=== PATIENT | female | born 1955 | race Caucasian/White ===

== ENCOUNTER 2024-06-21 22:10 | Emergency (ER) | payer MEDICARE, OTHER, SELFPAY ==
[2024-06-21 22:15] VITALS: BP 184/84; PULSE 78; RESP 22; TEMP 37.2; O2SAT 96; BMI 39.1
--- NOTE | 2024-06-21 22:58 | ED_ITS ---
HPI - General Adult General Date Seen: 06/21/24 Chief complaint: Shortness of Breath/Dyspnea Stated complaint: trouble breathing, chest pain Time Seen by Provider: 06/21/24 22:57 History of Present Illness HPI narrative: 68-year-old male with a history of COPD, on home oxygen, also history of hypertension, peripheral edema (on Lasix 3 times per week) Patient reports she was in the [facility] ER last week for this chest pain and shortness of breath. She had a workup that was apparently reassuring. She was told that there was ?nothing wrong with her heart? and that she should follow up with her doctor. In [facility] link I see she had labs on 06/10/2024. Sodium 144, potassium 3.9, chloride 106, bicarb 30, glucose 85, BUN 16, creatinine 0.85, magnesium 2.1 WBC 6.3, hemoglobin 12.8, platelet count 188 High sensitivity troponin 10 (normal) Procalcitonin 0.4 COVID not detected Chest x-ray one view IMPRESSION: 1. Left basilar opacities may represent an acute infectious/inflammatory process versus atelectatic changes in the appropriate clinical context. 2. Pulmonary nodule projecting over the right mid lung zone, to correlate with prior imaging if available; otherwise, recommend nonemergent CT chest for further assessment. Per ER notes, she had presented for chest heaviness, shortness of breath ongoing for about a week. Heaviness in her chest. Same for the week. Had been on prednisone for about 6 months but then was weaned off by her doctors at [facility] a couple weeks prior to onset. He on exam heart sounds were clear lungs were noted to be clear. EKG shows sinus rhythm, rate 65. Blood pressure was 178/92 at triage. Came down to 148/91. Patient reports that after she was discharged from the ER at [facility] she has had ongoing symptoms of shortness of breath, in particular dyspnea on exertion, and some mild chest discomfort for the past several days. She is not really having any new or different coughing. No production of sputum. No fevers. She her chest pain is not really getting worse, but is staying the same. She is a bit more short of breath. Also over the past 3-4 days she has noted new development of bilateral symmetric lower extremity peripheral edema. She notes that she is normally on Lasix 3 times per week to prevent edema. 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 About 3 weeks ago she was weaned off of her prednisone is now had no prednisone for at least 2 or 3 weeks. Current medication list includes Albuterol (she is out of her own inhaler but has been using her [id number]'s inhaler, and note does cause some temporary improvement) Montelukast, Formoterol revefenacin Rosuvastatin Valsartan 160 mg daily Furosemide 20 mg to 3 times per week Glipizide 2.5 mg daily To PEG low flows in Cetirizine Alendronate Ammonium lactate lotion Related Data Home Medications ?Medication ?Instructions ?Recorded ?Confirmed albuterol sulfate 90 mcg/actuation inhalation 05/07/24 05/07/24 aerosol inhaler alendronate 10 mg tablet 10 mg PO DAILY 05/07/24 06/21/24 ammonium lactate 12 % lotion topical 05/07/24 05/07/24 dapagliflozin propanediol [Farxiga] PO 05/07/24 05/07/24 furosemide 20 mg tablet mg PO 05/07/24 05/07/24 glipizide 2.5 mg tablet, extended 2.5 mg PO DAILY 05/07/24 06/21/24 release 24 hr montelukast 10 mg tablet 10 mg PO DAILY 05/07/24 06/21/24 potassium chloride 10 mEq 10 meq PO DAILY 05/07/24 06/21/24 tablet,extended release revefenacin 175 mcg/3 mL solution 175 mcg inhalation QDAY 05/07/24 06/21/24 for nebulization (Yuluis) rosuvastatin 40 mg tablet 40 mg PO DAILY 05/07/24 06/21/24 valsartan 160 mg tablet mg PO 05/07/24 05/07/24 acetaminophen PO 06/21/24 cetirizine .ROUTE 06/21/24 Previous Rx's ?Medication ?Instructions ?Recorded albuterol sulfate 90 mcg/actuation 2 puff inhalation Q4-6H PRN 06/22/24 aerosol inhaler shortness of breath or wheezing #8.5 grams prednisone 20 mg tablet 40 mg (2 x 20 mg) PO DAILY 5 days 06/22/24 #10 tabs Allergies Allergy/AdvReac Type Severity Reaction Status Date / Time oxycodone Allergy Verified 06/21/24 22:22 doxycycline AdvReac Mild Diarrhea Verified 06/21/24 22:22 PFS PFS Social History Smoking Status: Former smoker Do you use any of these nicotine containing products: None Second hand tobacco smoke exposure: No How often do you have a drink containing alcohol: 2-3 times a week AUDIT-C Alcohol total score: 3 Non-prescribed substance use: marijuana (any form) Exam Narrative: Exam Narrative: Constitutional: Appears well-developed and well-nourished. Alert. Conversant. Breathing easily with her nasal cannula. Non toxic. HENT: Head: Atraumatic. Nose: Nose normal. Mouth/Throat: Oral mucosa is clear and moist. no trismus. Pharynx normal. Tonsils symmetric. No tonsillar enlargement, erythema, or exudate. Eyes: Conjunctivae normal. EOM normal. Pupils equal, round, and reactive to light. No scleral icterus. Neck: Normal range of motion. Neck supple. No tracheal deviation present. No JVD Cardiovascular: Normal rate, regular rhythm. No gallop. No friction rub. No murmur heard. Symmetric radial and PT artery pulses Pulmonary/Chest: Effort normal. No stridor. No respiratory distress. Initially, with only shallow inspiration, no wheezes. When I coached the patient to breathe more forcefully she has definitive wheezing in all lung marie.. No rales. No rhonchi . No tenderness. Abdominal: Soft.. No distension. No mass. No tenderness. No rebound. No guarding. Musculoskeletal: RUE: Normal range of motion. No tenderness. No deformity LUE: Normal range of motion. No tenderness. No deformity RLE: Normal range of motion. 2+ edema. No tenderness. No deformity LLE: Normal range of motion. 2+ edema. No tenderness. No deformity Neurological: Alert and oriented to person, place, and time. Normal strength. CN II-VII intact. No sensory deficit. GCS eye subscore is 4. GCS verbal subscore is 5. GCS motor subscore is 6. Normal coordination Skin: Skin is warm and dry. No rash noted. No pallor. Normal capillary refill. Psychiatric: Normal mood. Normal affect. Const: Vital Signs, click to edit/add: Vital Signs - 24 hr 06/21/24 22:15 Temperature 98.9 F Pulse Rate [Pulse Oximeter] 78 Respiratory Rate 22 Blood Pressure [Ri t Upper Arm] 184/84 H Pulse Oximetry 96 Oxygen Delivery Me thod Room Air Course Course ED Course: [id number]. Did not note much improvement after 1st DuoNeb. On repeat auscultation she is actually more wheezy now that initially and has been more coughing. EKG obtained. Shows sinus rhythm. No ischemia. Reevaluation(s) Reevaluation #1: Recheck-12:10 a.m.. Finishing 2nd DuoNeb. Lung sounds much more open now but still some wheezing. Patient does have a cough now that was not present earlier, suspect that probably her bronchial tubes or opening up. Notes that her chest pain is getting better. Blood pressure still 190/93. Awaiting labs. EKG nonischemic. Vital Signs Vital signs: Initial Vital Signs Temperature 98.9 F 06/21/24 22:15 Temperature Source Temporal Artery Scan 06/21/24 22:15 Pulse Rate 78 06/21/24 22:15 Respiratory Rate 22 06/21/24 22:15 Blood Pressure 184/84 H 06/21/24 22:15 Blood Pressure Mean 117 H 06/21/24 22:15 Blood Pressure Position Sitting 06/21/24 22:15 Pulse Oximetry 96 06/21/24 22:15 Oxygen Delivery Method Room Air 06/21/24 22:15 Vital Signs Temperature 98.9 F 06/21/24 22:15 Pulse Rate 78 06/21/24 22:15 Respiratory Rate 22 06/21/24 22:15 Blood Pressure 184/84 H 06/21/24 22:15 Pulse Oximetry 96 06/21/24 22:15 Oxygen Delivery Method Room Air 06/21/24 22:15 Temperature 98.9 F 06/21/24 22:15 Pulse Rate 78 06/21/24 22:15 Respiratory Rate 22 06/21/24 22:15 Blood Pressure 184/84 H 06/21/24 22:15 Pulse Oximetry 96 06/21/24 22:15 Oxygen Delivery Method Room Air 06/21/24 22:15 Medications Administered Medications: Generic Name Dose Route Start Last Admin Trade Name Freq PRN Reason Stop Dose Admin Albuterol/Ipratropium 1 neb 06/22/24 00:01 06/22/24 00:01 Iprat-Albut 0.5-2.5 Mg/3 Ml Replaced by [facility] 06/22/24 00:02 1 neb ONCE ONE Administration Discontinued Medications Generic Name Dose Route Start Last Admin Trade Name Nirali PRN Reason Stop Dose Admin Albuterol/Ipratropium [address] [facility] 06/21/24 23:19 06/21/24 23:22 Iprat-Albut 0.5-2.5 Mg/3 Ml Replaced by [facility] 06/21/24 23:20 1 neb ONCE ONE Administration Prednisone 40 mg 06/21/24 23:19 06/21/24 23:22 Prednisone 20 Mg Tablet PO 06/21/24 23:20 40 mg ONCE ONE Administration Medical Decision Making MDM Narrative Medical decision making narrative: Very pleasant 68-year-old female presenting to the ER today for a couple week history of progressively worsening chest pain and shortness of breath. Symptoms have been fairly continuous. No clear exertional component to the chest pain or shortness of breath. She has also developed 3-4 days of bilateral lower extremity peripheral edema 1. She has a known history of COPD and is on chronic oxygen. She had been on chronic steroids for about 6 months, but was weaned off and stopped on her steroids by her doctors at the [facility] about 3-4 weeks ago (a week or so prior to onset of these symptoms). On my initial exam she had fairly quiet lung sounds but was wheezing with deeper inspiration. I ordered oral steroids and DuoNebs here in the ER. On repeat exam she is wheezing more, suggesting that her bronchial tubes are probably opening up. I have ordered a repeat DuoNeb. Suspected COPD could be driving in large part, her symptoms. 2. She does not have any fever or purulent sputum. Chest x-ray negative for pneumonia by my read but awaiting formal radiology interpretation. 3. She had a COVID swab last week at the [facility] ER that was negative so will not repeat COVID swab today. 4. She denies any previous history of coronary artery disease or CHF. She does have chronic Lasix for lymphedema. She knows new bilateral lower extremity swelling for the past 3-4 days. I have ordered the EKG which shows no ischemia. I have ordered troponin and N terminal proBNP to evaluate for possible ACS or a CHF. Labs have been delayed due to difficult IV start and phlebotomy. 5. Chest x-ray shows a right upper lobe pulmonary nodule. Discussed with the patient and her daughter. This is previously known to them and previously evaluated by CT scans at [facility]. 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 Discussed with my partner, Dr. Saunders at 12: 20 a.m.. He will follow-up on the outstanding lab results, re-evaluate the patient after her 2nd nebulizer. He will help determine ultimate disposition. If lab workup reassuring, she may be able to discharge home with a refill prescription for albuterol inhaler, and a short burst of 40 mg of prednisone daily for 5 days. Imaging Data Chest x-ray: Attestation: I have reviewed the pertinent imaging results. Radiologist's impression: IMPRESSION: 1. No evidence of an acute pulmonary process. 2. 2.6 cm right upper lobe pulmonary nodule. Recommend outpatient chest CT for further evaluation, if not previously imaged. ECG Data Attestation: I personally reviewed and interpreted this ECG as follows: Interpretation: Normal sinus rhythm Rate: 76 TX: 172 QRS axis: Normal axis. No pathologic Q-waves. ST segment/T wave: Nonspecific T-wave flattening V1, V2, aVL. No ST segment elevation or depression. QTc: 468 Discharge Plan Discharge Clinical Impression: COPD exacerbation, Incidental pulmonary nodule Prescriptions: New prednisone 20 mg tablet 40 mg PO DAILY 5 Days Qty: 10 0RF albuterol sulfate 90 mcg/actuation HFA aerosol inhaler 2 puff inhalation Q4-6H PRN (Reason: shortness of breath or wheezing) Qty: 8.5 0RF No Action valsartan 160 mg tablet PO glipizide 2.5 mg tablet extended release 24hr 2.5 mg PO DAILY rosuvastatin 40 mg tablet 40 mg PO DAILY montelukast 10 mg tablet 10 mg PO DAILY potassium chloride 10 mEq tablet extended release 10 meq PO DAILY furosemide 20 mg tablet PO ammonium lactate 12 % lotion topical alendronate 10 mg tablet 10 mg PO DAILY albuterol sulfate 90 mcg/actuation HFA aerosol inhaler inhalation Yupelri 175 mcg/3 mL solution for nebulization 175 mcg inhalation QDAY dapagliflozin propanediol [Farxiga] PO cetirizine [Zyrtec] .ROUTE acetaminophen [Tylenol 8 Hour] PO Follow Up/Referrals: Provider,Not a Local [Primary Care Provider] -
--- NOTE | 2024-06-21 23:19 | CRLHL7_ITS ---
For Patients: As a result of the Century Cures Act, medical imaging exams and procedure reports are released immediately into your electronic medical record. You may view this report before your referring provider. If you have questions, please contact your health care provider. INDICATION: Dyspnea, chest pain, peripheral edema. TECHNIQUE: Chest 2 views. COMPARISON: Chest radiograph (report only) 06/10/2024. FINDINGS: Cardiovascular and mediastinum: Mild cardiomegaly. Atherosclerotic thoracic aorta. Lungs and pleural spaces: 2.6 cm right upper lobe pulmonary nodule. No acute consolidation, pleural effusion, or pneumothorax. Left basilar scarring there is atelectasis. Bones and soft tissues: Partially imaged lumbar spine fusion hardware. Otherwise, unremarkable for age IMPRESSION: 1. No evidence of an acute pulmonary process. 2. 2.6 cm right upper lobe pulmonary nodule. Recommend outpatient chest CT for further evaluation, if not previously imaged. Dictated by Kelvin Thornton MD @ 06/22/2024 12:05:53 AM (Electronically Signed)
[2024-06-21] MEDS: predniSONE 20 MG TABLET 40 MG PO (23:22)
[2024-06-21] MEDS: IPRAT-ALBUT 0.5-2.5 MG/3 ML NEB 1 NEB IH (23:22)
[2024-06-22] MEDS: IPRAT-ALBUT 0.5-2.5 MG/3 ML NEB 1 NEB IH (00:01)
[2024-06-22 00:18] LABS: Basophils Absolute Auto 0.03 K/uL (0.00-0.30); Basophils Percent Auto 0.3 % (0.0-3.0); Eosinophils Absolute Auto 0.15 K/uL (0.00-0.50); Eosinophils Percent Auto 1.7 % (0.0-7.0); Hematocrit 41.5 % (33.0-51.0); Hemoglobin* 12.9 gm/dL (12.0-16.0); Immature Granulocytes Abs Auto 0.02 K/uL (0.00-0.30); Immature Granulocytes Pct Auto 0.2 %; Lymphocytes Percent Auto 17.6 % (20-44); Mean Corpuscular HGB Conc 31 gm/dL (32-36); Mean Corpuscular Hemoglobin 29 pg (26-34); Mean Corpuscular Volume 93 fL (80-100); Monocytes Percent Auto 11.5 % (0.0-11.0); Neutrophils Absolute Auto 6.18 K/uL (1.7-7.0); Neutrophils Percent Auto 68.7 % (42.0-72.0); Platelet Count* 189 K/uL (140-440); RDW Coefficient of Variation % 13.2 % (11.5-15.5); Red Blood Count 4.47 m/uL (4.00-5.20); White Blood Count* 8.99 K/uL (4.50-11.00)
[2024-06-22 00:20] LABS: Slide Review Reflex No
[2024-06-22 00:33] LABS: Albumin* 4.7 g/dL (3.3-5.0); Chloride* 101 mmol/L (96-114); Potassium* 4.1 mmol/L (3.6-5.1); Sodium* 138 mmol/L (135-149)
[2024-06-22 00:35] LABS: Creatinine* 0.8 mg/dL (0.5-1.5); Est. Creatinine Clearance* 49.12; Estimated Glomerular Filt Rate 81 ml/min
[2024-06-22 00:36] LABS: Alanine Aminotransferase* 19 U/L (4-35); Alkaline Phosphatase* 61 U/L (40-150); Anion Gap 8 mEq/L (7-15); Aspartate Amino Transferase* 32 U/L (12-35); Bilirubin Total* 0.5 mg/dL (0.1-1.5); Blood Urea Nitrogen* 20 mg/dL (7-30); Carbon Dioxide* 29 mmol/L (20-32); Glucose* 124 mg/dL (60-115); Total Protein* 7.2 g/dL (6.0-8.3)
[2024-06-22 00:37] LABS: Calcium* 9.6 mg/dL (8.4-10.6)
[2024-06-22 00:50] LABS: NT Pro B Type NatriureticPept* 333 pg/mL; Troponin I* < 0.01 ng/mL (0.01-0.04)
== END 2024-06-22 01:14 | disposition home or self-care (01) ==
PROVIDERS: Emergency Provider Emergency Medicine
DX: J44.1 Chronic obstructive pulmonary disease with (acute) exacerbation (principal); R91.1 Solitary pulmonary nodule
CPT/HCPCS: 36415; 71046; 80053; 83880; 84484; 85025; 93005; 99283; 99284; 99285; J7512

== ENCOUNTER 2024-07-13 12:20 | Emergency (ER) | payer MEDICARE, OTHER, SELFPAY ==
[2024-07-13 12:49] VITALS: BP 148/74; PULSE 74; RESP 20; TEMP 37.2; O2SAT 91; BMI 39.9
--- NOTE | 2024-07-13 13:03 | ED_ITS ---
HPI - General Adult General Time Seen by Provider: 13:03 Date Seen: 07/13/24 Chief complaint: Back Injury/Pain Stated complaint: Back pain increasing no known injury Time Seen by Provider: 07/13/24 12:33 Source: patient and RN notes reviewed Mode of arrival: ambulatory Limitations: no limitations History of Present Illness HPI narrative: This 68-year-old female is coming in with right-sided low back pain that started on Friday. She baseline takes Tylenol Arthritis twice a day. She has Voltaren gel that she uses for arthritis particularly in her right knee, did apply some on her right low back last night and this morning. She has had no fevers. She denies any pain going down the leg, no sciatica symptoms. The pain is sometimes sharp and is in her right low back. There is no trauma. She feels there some underlying spasms. There is pain with movement. She did have a lumbar spinal fusion about 18 years ago. She does note that she has arthritis in her back as well. Related Data Home Medications ?Medication ?Instructions ?Recorded ?Confirmed albuterol sulfate 90 mcg/actuation inhalation 05/07/24 05/07/24 aerosol inhaler alendronate 10 mg tablet 10 mg PO DAILY 05/07/24 06/21/24 ammonium lactate 12 % lotion topical 05/07/24 05/07/24 dapagliflozin propanediol [Farxiga] PO 05/07/24 05/07/24 furosemide 20 mg tablet mg PO 05/07/24 05/07/24 glipizide 2.5 mg tablet, extended 2.5 mg PO DAILY 05/07/24 06/21/24 release 24 hr montelukast 10 mg tablet 10 mg PO DAILY 05/07/24 06/21/24 potassium chloride 10 mEq 10 meq PO DAILY 05/07/24 06/21/24 tablet,extended release revefenacin 175 mcg/3 mL solution 175 mcg inhalation QDAY 05/07/24 06/21/24 for nebulization (Li) rosuvastatin 40 mg tablet 40 mg PO DAILY 05/07/24 06/21/24 valsartan 160 mg tablet mg PO 05/07/24 05/07/24 acetaminophen PO 06/21/24 cetirizine .ROUTE 06/21/24 Previous Rx's ?Medication ?Instructions ?Recorded albuterol sulfate 90 mcg/actuation 2 puff inhalation Q4-6H PRN 06/22/24 aerosol inhaler shortness of breath or wheezing #8.5 grams prednisone 20 mg tablet 40 mg (2 x 20 mg) PO DAILY 5 days 06/22/24 #10 tabs prednisone 20 mg tablet 20 mg PO DAILY #7 tabs 07/13/24 tizanidine 2 mg tablet 2 mg PO Q8H PRN muscle spasticity 07/13/24 #12 tabs Allergies Allergy/AdvReac Type Severity Reaction Status Date / Time oxycodone Allergy Verified 06/21/24 22:22 doxycycline AdvReac Mild Diarrhea Verified 06/21/24 22:22 Review of Systems Narrative: As per HPI. PFSH PFS Social History Smoking Status: Former smoker Do you use any of these nicotine containing products: None Second hand tobacco smoke exposure: No How often do you have a drink containing alcohol: 2-4 times a month AUDIT-C Alcohol total score: 2 Non-prescribed substance use: denies use Exam Const: Vital Signs, click to edit/add: Vital Signs - 24 hr 07/13/24 12:49 07/13/24 13:33 Temperature 98.9 F Pulse Rate [Pulse Oximeter] 74 Respiratory Rate 20 Blood Pressure [Ri ght Upper Arm] 148/74 H Pulse Oximetry 91 Oxygen Delivery Me thod Nasal Cannula Nasal Cannula Oxygen Flow Rate 3 3 This 68-year-old female is sitting up on the bed in exam room 1. She does wear chronic oxygen. She is alert come interactive, no apparent distress. Inspection of her back reveals no erythema, no ecchymosis, no rash. She has no midline tenderness over her back. She points to her right low back, does seem to be over the right SI joint and is tender when I palpate but no underlying mass noted. Negative straight leg raising, strength is normal and symmetric throughout both lower extremities. Strength is 5/5. Normal light touch sensation. Patient does have a walker for ambulation at this time. Documenting provider has reviewed patient's vital signs: yes Course Course ED Course: Reviewed with patient that she seems to have tenderness over her SI joint which certainly can have arthritis. She has no red flag features of low back pain, no radiculopathy. We will obtain x-ray imaging of lumbar spine and right sacroiliac joint, advanced imaging not indicated at this time. Reevaluation(s) Time of Reevaluation #1: 13:59 Reevaluation #1: Provided Sancho with her x-ray report, did discuss that there is arthritic changes in her back, bilateral mild arthritic changes in both SI joints. She notes when she was on prednisone recently for COPD flare, all of her joint pains got better. My recommendation at this time is a short course of prednisone, will give her tizanidine for muscle relaxant. She will follow up outpatient with her primary care provider. Reviewed with her that I suspect that this is probably her SI joint but still could be a component of degenerative changes in her right back. Vital Signs Vital signs: Initial Vital Signs Temperature 98.9 F 07/13/24 12:49 Temperature Source Temporal Artery Scan 07/13/24 12:49 Pulse Rate 74 07/13/24 12:49 Respiratory Rate 20 07/13/24 12:49 Blood Pressure 148/74 H 07/13/24 12:49 Blood Pressure Mean 98 07/13/24 12:49 Pulse Oximetry 91 07/13/24 12:49 Oxygen Delivery Method Nasal Cannula 07/13/24 12:49 Oxygen Flow Rate 3 07/13/24 12:49 Vital Signs Temperature 98.9 F 07/13/24 12:49 Pulse Rate 74 07/13/24 12:49 Respiratory Rate 20 07/13/24 12:49 Blood Pressure 148/74 H 07/13/24 12:49 Pulse Oximetry 91 07/13/24 12:49 Oxygen Delivery Method Nasal Cannula 07/13/24 12:49 Oxygen Flow Rate 3 07/13/24 12:49 Temperature 98.9 F 07/13/24 12:49 Pulse Rate 74 07/13/24 12:49 Respiratory Rate 20 07/13/24 12:49 Blood Pressure 148/74 H 07/13/24 12:49 Pulse Oximetry 91 07/13/24 12:49 Oxygen Delivery Method Nasal Cannula 07/13/24 13:33 Oxygen Flow Rate 3 07/13/24 13:33 Medical Decision Making Imaging Data XR lumbar spine: Attestation: I have reviewed the pertinent imaging results. Radiologist's impression: Patient: SANCHO GOMEZ Facility:[facility] Patient ID:?[id number] Site Patient ID:?[id number]. Site :?[id number] Study:?XRay-Spine Lumbar 2 view-07/13/2024 1:43:37 PM Ordering Physician:Joseluis Devlin Final Report: Indication: Pain Technique: Two views of the lumbar spine and two views of the right sacroiliac joint Comparison: None Findings: No acute fracture or malalignment. Normal lumbar lordosis is maintained. No significant listhesis. Postsurgical changes of posterior spinal fusion construct spanning L3-S1 with interbody spacers and associated laminectomies. There is no evidence of hardware related complication. Multilevel degenerative changes seen throughout the spine with varying degrees of intervertebral disc height loss and degenerative endplate changes. Postsurgical changes of left femoral intramedullary luh and screw placement. 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 No significant osteoarthritic degenerative changes of the bilateral femoroacetabular joints. No suspicious osseous lesions. There is some heterotopic ossification seen adjacent to the left hip. The soft tissues are without acute abnormality. Calcific atherosclerosis. Impression: 1. No acute fracture or malalignment. 2. Degenerative changes as detailed above. Dictated by Chirag Riggins MD @ 07/13/2024 1:51:27 PM (Electronic Signature) XR right sacroiliac joint: Attestation: I have reviewed the pertinent imaging results. Radiologist's impression: Patient: SANCHO GOMEZ Facility:?[facility] Patient ID:?[id number] Site Patient ID:?[id number]. Site :?[id number] Study:?XRay-Spine Lumbar 2 view-07/13/2024 1:43:37 PM Ordering Physician:?Eliseo Devlin Final Report: Indication: Pain Technique: Two views of the lumbar spine and two views of the right sacroiliac joint Comparison: None Findings: No acute fracture or malalignment. Normal lumbar lordosis is maintained. No significant listhesis. Postsurgical changes of posterior spinal fusion construct spanning L3-S1 with interbody spacers and associated laminectomies. There is no evidence of hardware related complication. Multilevel degenerative changes seen throughout the spine with varying degrees of intervertebral disc height loss and degenerative endplate changes. Postsurgical changes of left femoral intramedullary luh and screw placement. 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 No significant osteoarthritic degenerative changes of the bilateral femoroacetabular joints. No suspicious osseous lesions. There is some heterotopic ossification seen adjacent to the left hip. The soft tissues are without acute abnormality. Calcific atherosclerosis. Impression: 1. No acute fracture or malalignment. 2. Degenerative changes as detailed above. Dictated by Chirag Riggins MD @ 07/13/2024 1:51:27 PM (Electronic Signature) Discharge Plan Discharge Clinical Impression: Acute right-sided low back pain Qualifiers: Sciatica presence: without sciatica Qualified Code(s): M54.50 - Low back pain, unspecified Patient Disposition: Home, Self-Care Condition: Stable Instructions: Acute Low Back Pain (ED) Additional Instructions: I do wonder if this could be your right sacroiliac joint. We will try prednisone, take with food to protect her stomach. Have written for a muscle relaxant if needed. Stay on your Tylenol arthritis and Voltaren gel. Need to follow-up with your primary care provider within the next week for further ongoing management. If your pain is worsening despite this outlined course, develops fever or have further concerns, do recommend re-evaluation. Activity Level: Activity as Tolerated Prescriptions: New prednisone 20 mg tablet 20 mg PO DAILY Qty: 7 0RF tizanidine 2 mg tablet 2 mg PO Q8H PRN (Reason: muscle spasticity) Qty: 12 0RF No Action valsartan 160 mg tablet PO glipizide 2.5 mg tablet extended release 24hr 2.5 mg PO DAILY rosuvastatin 40 mg tablet 40 mg PO DAILY montelukast 10 mg tablet 10 mg PO DAILY potassium chloride 10 mEq tablet extended release 10 meq PO DAILY furosemide 20 mg tablet PO ammonium lactate 12 % lotion topical alendronate 10 mg tablet 10 mg PO DAILY albuterol sulfate 90 mcg/actuation HFA aerosol inhaler inhalation Yupelri 175 mcg/3 mL solution for nebulization 175 mcg inhalation QDAY dapagliflozin propanediol [Farxiga] PO cetirizine [Zyrtec] .ROUTE acetaminophen [Tylenol 8 Hour] PO prednisone 20 mg tablet 40 mg PO DAILY 5 Days Qty: 10 0RF albuterol sulfate 90 mcg/actuation HFA aerosol inhaler 2 puff inhalation Q4-6H PRN (Reason: shortness of breath or wheezing) Qty: 8.5 0RF Follow Up/Referrals: Provider,Not a Local [Primary Care Provider] - Stand Alone Forms: [employer] Info Instructions
--- NOTE | 2024-07-13 13:13 | CRLHL7_ITS ---
For Patients: As a result of the Cures Act, medical imaging exams and procedure reports are released immediately into your electronic medical record. You may view this report before your referring provider. If you have questions, please contact your health care provider. Indication: Pain Technique: Two views of the lumbar spine and two views of the right sacroiliac joint Comparison: None Findings: No acute fracture or malalignment. Normal lumbar lordosis is maintained. No significant listhesis. Postsurgical changes of posterior spinal fusion construct spanning L3-S1 with interbody spacers and associated laminectomies. There is no evidence of hardware related complication. Multilevel degenerative changes seen throughout the spine with varying degrees of intervertebral disc height loss and degenerative endplate changes. Postsurgical changes of left femoral intramedullary luh and screw placement. 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 No significant osteoarthritic degenerative changes of the bilateral femoroacetabular joints. No suspicious osseous lesions. There is some heterotopic ossification seen adjacent to the left hip. The soft tissues are without acute abnormality. Calcific atherosclerosis. Impression: 1. No acute fracture or malalignment. 2. Degenerative changes as detailed above. Dictated by Chirag Riggins MD @ 07/13/2024 1:51:27 PM (Electronically Signed)
== END 2024-07-13 14:16 | disposition home or self-care (01) ==
PROVIDERS: Emergency Provider Family Medicine
DX: M54.50 Low back pain, unspecified (principal)
CPT/HCPCS: 72100; 72202; 99283; 99284

== ENCOUNTER 2024-08-11 08:06 | Day surgery (SDC) | payer MEDICARE, OTHER, SELFPAY ==
[2024-08-11] VITALS (7 sets, daily range): BP systolic 101–141; BP diastolic 48–79; PULSE 74–86; RESP 16–18; TEMP 35.8–36.9; O2SAT 96–99; BMI 40.3
--- NOTE | 2024-08-11 09:21 | W.ANESCHARGE ---
Anesthesia Charges Start Date/Time Anesthesia Start Date: 08/11/24 Anesthesia Start Time: 09:18 Stop Date/Time Anesthesia Stop Date: 08/11/24 Anesthesia Stop Time: 10:43
[2024-08-11] MEDS: BUPIVACAINE 0.25% 30 ML INJECTION (09:28)
--- NOTE | 2024-08-11 10:40 | CRLHL7_ITS ---
For Patients: As a result of the Cures Act, medical imaging exams and procedure reports are released immediately into your electronic medical record. You may view this report before your referring provider. If you have questions, please contact your health care provider. Indication: LEFT 1ST IP JOINT FUSION Technique: Three fluoroscopic images of the left foot. Fluoroscopic time 19 seconds IMPRESSION: Fluoroscopic guidance for 1st interphalangeal joint fusion. Dictated by Ramesh Win MD @ 08/11/2024 1:07:57 PM (Electronically Signed)
--- NOTE | 2024-08-11 10:44 | W.ANESCHARGE ---
Anesthesia Charges Start Date/Time Anesthesia Start Date: 08/11/24 Anesthesia Start Time: 09:18 Stop Date/Time Anesthesia Stop Date: 08/11/24 Anesthesia Stop Time: 10:43
--- NOTE | 2024-08-11 11:57 | W.PODPROC_ITS ---
Date of Procedure: 08/11/24 Time Seen by Provider: 11:57 Surgeon: Cat Silverman DPM Co-Surgeon: Vu Lvey DPM Pre-op Diagnosis: Hallux malleus, left foot Post-op Diagnosis: Hallux malleus, left foot Type of Procedure: Interphalangeal joint fusion, left hallux Procedure Description: The patient was identified prior to being brought back into the operating room using their name and date of as patient identifiers. The intended surgical care plan was then reviewed in detail with the patient as well as rationale for surgery, most common risks, complications, and expected recovery course. The patient was given opportunity to ask questions, which were to the best of my ability. Patient ultimately voiced no questions or concerns and agreed to proceed forward with the surgery as planned.The patient was brought from the preoperative holding area to the operating room, and placed on the operating room table in the supine positions. At this time a timeout was performed by myself and operating room staff to identify the proper patient, site and operation to be performed. A well padded pneumatic ankle tourniquet was applied to the patient's left lower extremity. The left extremity was then scrubbed, prepped and draped in the normal sterile fashion. Attention was then directed to the dorsal aspect of the?left hallux interphalangeal joint. A lazy S shaped incision was made over the dorsal aspect of the proximal interphalangeal joint. The incision was deepened through subcutaneous tissue, taking care to retract and protect all vital neural and vascular structures. The level of the extensor tendon and capsule was identified at the proximal interphalangeal joint. A dorsal transverse tenotomy and capsulotomy was made and lateral and medial collateral ligaments were transected. An extensor flap was created sharply on the dorsal aspect of the proximal phalanx, as well as on the proximal aspect of the distal phalanx. A sagittal saw was utilized to resect the head of the proximal phalanx at the surgical neck and the proximal aspect of the distal phalanx. Using the appropriate technique according to the emergency room orderly, a single 4.0mm cannulated screw was inserted across the resected joint from distal to proximal. Good rectus alignment of the digits was noted.? The extensor tendon was re- approximated with absorbable suture and the skin incisions were re-approximated non-absorbable suture. Upon release of the pneumatic tourniquet, immediate reperfusion of toes 1 through 5 was noted. A postoperative sir eloy elizondo modified dressing consisting of xeroform, ABDs, Kerlix, 4 x 4's, and an OVIDIO bandage was applied to the patient's left foot.The patient was transferred from the operating room to the post anesthesia care unit with vital signs stable and vascular status intact to the left lower extremity. The patient appeared to tolerate both the procedure and anesthesia well.? ? Anesthesia: MAC and local (20 cc of 0.25% Marcaine plain) Hemostasis: ankle Estimated blood loss (mL): 5 Implants: 4.0mm cannulated shea screw Specimens: none sent Disposition: PACU
== END 2024-08-11 12:15 | disposition home or self-care (01) ==
PROVIDERS: PCP Family Medicine; Visit Provider Podiatrist
PROC: (CPT 28285; principal; 2024-08-11 09:15)
DX: M20.32 Hallux varus (acquired), left foot (principal); E11.9 Type 2 diabetes mellitus without complications; J44.9 Chronic obstructive pulmonary disease, unspecified; I10 Essential (primary) hypertension
CPT/HCPCS: 28755; 01480; 73630; 76000; 82962; A9270; C1713; J0665; J2250; J2704; J3010

== ENCOUNTER 2024-10-30 11:27 | Emergency (ER) | payer MEDICARE, OTHER, SELFPAY ==
[2024-10-30] VITALS (14 sets, daily range): BP systolic 163–171; BP diastolic 78–96; PULSE 79–87; RESP 24; TEMP 36.8; O2SAT 97–100; BMI 40.8
--- OUTSIDE RECORDS SUMMARY | 2024-10-30 11:30 | XMS_ITS | Encounter Summary ---
Author Organization [facility] Address [address] [place] [address] Care Team Providers Care Barn Hand Name Role Phone Kati Colin M.D. Primary Care Provider Encounter Details Date Type Department Care Team (Late st Contact Info) Description 10/29/2024 Patient Self-Triage [facility] Symptom Tower Foreman, Provider Social History Tobacco Use Types Packs/Day Years Used Date Smoking Tobacco: Former Cigarettes 0.8 88.9 0 09/29/1969 - 08/23/2018 Smokeless Tobacco: Never Comments:Quit smoking severa l times for several months Alcohol Use Standard Drinks/Week Comments Yes 4 (1 standard drink = 0.6 oz pur e alcohol) [facility] Utilities Answer Date Recorded In the past 12 months has [employer], gas, oil, or water [employer] threatened to shut off services in your home? No 06/28/2024 PHQ-2 Answer Date Recorded PHQ-2 Score 0 10/09/2024 Exercise Vital Sign Answer Date Recorde d On average, how many days pe r week do you engage in moderate to strenuous exercise (like a brisk walk)? 4 days 05/07/2024 On average, how many minutes do you engage in exercise at this level? 30 min 05/07/2024 Hunger Vital Sign Answer Date Recorded Within the past 12 months, y ou worried that your food would run out before you got the money to buy more. Never true 06/28/20 24 Within the past 12 months, t he food you bought just didn't last and you didn't have money to get more. Never true 06/28/2024 PRAPARE - Transportation Answer Date Re corded In the past 12 months, has l ack of transportation kept you from medical appointments or from getting medications? No 06/01 In the past 12 months, has l ack of transportation kept you from meetings, work, or from getting things needed for daily living? No 06/28/2024 Nutrition Answer Date Recorded On average, how many serving s of fruits and vegetables do you eat per day (serving size is equal to 1 cup or approximately the size of a tennis ball)? 3-5 05/07/2024 Dental Answer Date Recorded Dental: Regular Dentist No 05/07/20 Employment Answer Date Recorded Employment status Retired 05/07/2024 Housing Stability Answer Date Recorded What is your living situation today? 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 [address] [place] [phone] 11/01/2024 10:10 AM BRIM POUNCING MACHINE OPERATOR Appointment Department of Laboratory Medicine in [address] [phone] Kati Colin M.D. [address] [place] [phone] 11/03/2024 3:30 PM BRIM POUNCING MACHINE OPERATOR Comprehensive Visit Department of Ophthalmology in [place], [place] [address] [place] [address] Hpiolito Lynch M.D. [address] [place] [phone] 12/09/2024 9:30 AM CDT Appointment Department of Cardiovascular Diseases in [place], [place] [address] [place] [address] Kati Colin M.D. [address] [place] [phone] Discharge Disposition: Home or Self Care 12/22/2024 10:30 AM CDT Clinical Communication Virtual Review in [place] [address], [place] [address] [place] [address] 12/23/2024 10:00 AM CDT Diagnostic Division of Pulmonary Medicine in [address] [phone] Margarita Martinez APRN, C.N.P., D.N.P. [address] [place] [phone] 12/23/2024 10:30 AM CDT Diagnostic Division of Pulmonary Medicine in [address] [phone] Margarita Martinez APRN, C.N.P., D.N.P. [address] [place] [phone] 12/23/2024 11:30 AM CDT Office Visit Division of Pulmonary Medicine in [address] [phone] Margarita Martinez APRN, C.N.P., D.N.P. [address] [place] [phone] documented as of this encounter Visit Diagnoses Not on filedocumented in this encounter Care Teams Barn Hand Relationship Specialty Start Date End Date Kati Colin M.D. [address] [place] [phone] PCP - General Family Medicine 03/09/24 documented as of this encounter
--- OUTSIDE RECORDS SUMMARY | 2024-10-30 11:30 | XMS_ITS | Encounter Summary ---
Author Organization [facility] Address [address] [place] [address] Care Team Providers Care Take Off Worker Name Role Phone Kati Colin M.D. Primary Care Provider Reason for Visit * Reason Onset Date Comments Med Refill 10/11/2024 Encounter Details Date Type Department Care Team (Late st Contact Info) Description 10/11/2024 Refill Department of Family Medicine, [facility], in [place], [place] [address] [place] [address] Kati Colin M.D. [address] [place] [phone] Med Refill Social History Tobacco Use Types Packs/Day Years Used Date Smoking Tobacco: Former Cigarettes 0.8 88.9 0 09/29/1969 - 08/23/2018 Smokeless Tobacco: Never Comments:Quit smoking severa l times for several months Alcohol Use Standard Drinks/Week Comments Yes 4 (1 standard drink = 0.6 oz pur e alcohol) [facility] Utilities Answer Date Recorded In the past 12 months has [employer] electric, gas, oil, or water company threatened to shut off services in your [...] your living situation today? I have a [facility] place to live 06/28/2024 Comments No Sex and Gender Information Value Date Recorded Sex Assigned at Female 05/07/2024 7:38 AM CDT Legal Sex Female 3:35 PM ACTIVITY THERAPY SPECIALIST Gender Identity Female 05/07/2024 7:38 AM CDT Sexual Orientation Straight 05/07/2024 7: 38 AM CDT documented as of this encounter Plan of Treatment Upcoming Encounters Date Type Department Care Team (Latest Contact Info) Description 11/01/2024 9:50 AM ACTIVITY THERAPY SPECIALIST Appointment Department of Laboratory Medicine in [place], [place] [address] [place] [phone] Kati Colin M.D. [address] [place] [phone] 11/01/2024 10:10 AM ACTIVITY THERAPY SPECIALIST Appointment Department of Laboratory Medicine in [place], [place] [address] [place] [phone] Kati Colin M.D. [address] [place] [phone] 11/03/2024 3:30 PM ACTIVITY THERAPY SPECIALIST Comprehensive Visit Department of Ophthalmology in [place], [place] [address] [place] [phone] Hipolito Lynch M.D. [address] [phone] 12/09/2024 9:30 AM CDT Appointment Department of Cardiovascular Diseases in [place], [place] [address] [phone] Kati Colin M.D. [address] [place] [phone] Discharge Disposition: Home or Self Care 12/22/2024 10:30 AM CDT Clinical Communication Virtual Review in [place], [place] [address] [place] [address] 12/23/2024 10:00 AM CDT Diagnostic Division of Pulmonary Medicine in [place], [place] [address] [place] [phone] Margarita Matrinez APRN, C.N.P., D.N.P. [address] [place] [phone] 12/23/2024 10:30 AM CDT Diagnostic Division of Pulmonary Medicine in [place], [place] [address] [place] [phone] Margarita Martinez APRN, C.N.P., D.N.P. [address] [place] [address] 12/23/2024 11:30 AM CDT Office Visit Division of Pulmonary Medicine in [place], [place] [address] [place] [phone] Margarita Martinez, LOREN, C.N.P., D.N.P. [address] [place] [phone] documented as of this encounter Visit Diagnoses Not on filedocumented in this encounter Care Teams Take Off Worker Relationship Specialty Start Date End Date Kati Colin M.D. [address] [place] [phone] PCP - General Family Medicine 03/09/24 documented as of this encounter
--- OUTSIDE RECORDS SUMMARY | 2024-10-30 11:30 | XMS_ITS | Encounter Summary ---
Author Organization [facility] Address [address] [place] [address] Care Team Providers Care Reserve Officer Name Role Phone Kati Colin M.D. Primary Care Provider [phone] Reason for Visit * Reason Onset Date Comments Results 10/11/2024 Encounter Details Date Type Department Care Team (Late st Contact Info) Description 10/11/2024 Clinical Communication Department of Family Medicine, [facility], in [place], [place] [address] [place] [address] Kati Colin M.D. [address] [place] [phone] Results Social History Tobacco Use Types Packs/Day Years Used Date Smoking Tobacco: Former Cigarettes 0.8 88.9 0 09/29/1969 - 08/23/2018 Smokeless Tobacco: Never Comments:Quit smoking severa l times for several months Alcohol Use Standard Drinks/Week Comments Yes 4 (1 standard drink = 0.6 oz pur e alcohol) [facility] Utilities Answer Date Recorded In the past 12 months has [employer], gas, oil, or water company threatened [...] your living situation today? I have a [facility] place to live 06/28/2024 Comments No Sex and Gender Information Value Date Recorded Sex Assigned at Female 05/07/2024 7:38 AM CDT Legal Sex Female 3:35 PM NURSING CENTER TUTOR Gender Identity Female 05/07/2024 7:38 AM CDT Sexual Orientation Straight 05/07/2024 7: 38 AM CDT documented as of this encounter Miscellaneous Notes * Telephone Encounter - Luz Marina Loving, C.M.A. - 10/12/2024 8:59 AM NURSING CENTER TUTOR SUBJECTIVE CHIEF COMPLAINT / REASON FOR CALL Results Information Discussed Guy and informed patient of results and recommendations per Dr. Dixie M.D. PLAN Disposition/Recommendation: self-care . appropriate at this time, patient encouraged to call back with questions Information/Education: patient/caller able to teach back Caller agreeable to plan of care: yes The following references were used: provider Dr. Dixie M.D. ING CENTER TUTOR * Telephone Encounter - Gracy Barrientos L.P.N. - 10/11/2024 4:55 PM NURSING CENTER TUTOR ----- Message from Kati Colin M.D. sent at 10/11/2024 4:51 PM NURSING CENTER TUTOR ----- Please reassure the patient that chest x-ray showed no infection. No antibiotics as needed. Proceedwith the treatment as we discussed during her visit with prednisone and the inhalers. ING CENTER TUTOR documented in this encounter Plan of Treatment Upcoming Encounters Date Type Department Care Team (Latest Contact Info) Description 11/01/2024 9:50 AM NURSING CENTER TUTOR Appointment Department of Laboratory Medicine in [address] [phone] Kati Colin M.D. [address] [place] [phone] 11/01/2024 10:10 AM NURSING CENTER TUTOR Appointment Department of Laboratory Medicine in [address] [phone] Kati Colin M.D. [address] [place] [phone] 11/03/2024 3:30 PM NURSING CENTER TUTOR Comprehensive Visit Department of Ophthalmology in [place], [place] [address] [place] [phone] Hipolito Lynch M.D. [address] [place] [phone] 12/09/2024 9:30 AM CDT Appointment Department of Cardiovascular Diseases in [place], [place] [address] [place] [phone] Kati Colin M.D. [address] [place] [phone] Discharge Disposition: Home or Self Care 12/22/2024 10:30 AM CDT Clinical Communication Virtual Review in [place], [place] 200 [place] [phone] 12/23/2024 10:00 AM CDT Diagnostic Division of Pulmonary Medicine in [address] [phone] Margarita Martinez APRN, C.N.P., D.N.P. [address] [place] [phone] 12/23/2024 10:30 AM CDT Diagnostic Division of Pulmonary Medicine in [address] [phone] Margarita Martinez APRN, C.N.P., D.N.P. [address] [place] [phone] 12/23/2024 11:30 AM CDT Office Visit Division of Pulmonary Medicine in [address] [phone] Margarita Martinez APRN, C.N.P., D.N.P. [address] [place] [phone] documented as of this encounter Visit Diagnoses Not on filedocumented in this encounter Care Teams Reserve Officer Relationship Specialty Start Date End Date Kati Colin M.D. [address] [place] [phone] PCP - General Family Medicine 03/09/24 documented as of this encounter
--- OUTSIDE RECORDS SUMMARY | 2024-10-30 11:30 | XMS_ITS | Continuity of Care Document ---
Author Organization [facility] Address [address] [place] [address] Phone Care Team Providers Care Weapons Specialist Name Role Phone Unavailable Unavailable Unavailable Allergies, Adverse Reactions, Alerts Substance Reaction Status Criticality OXYCODONE HCL Active No Information acetaminophen Active No Information Medications Medication Instructions Dosage Effective Dates (start - stop) Status Comments cetirizine 10 mg tablet take 1 tablet by oral route every day 10 MG - Active hydrochlorothiazide 25 mg tablet take 1 tablet by oral route every day 25 MG - Active montelukast 10 mg tablet take 1 tablet b y oral route every day in the evening 10 MG - Active Vitamin D3 2,000 unit capsule - Active tuagrjl-trmevphaf-arub 333 mg-133 mg-5 mg tablet - Active Advair Diskus 500 mcg-50 mcg/dose powder for inhalation inhale 1 puff by inhalation route 2 times every day in the morning and evening approximately 12 hours apart 1.00 puff - Active Spiriva with HandiHaler 18 mcg and inhalation capsules inhale 1 capsule by inhalation route every day using 2 inhalations via handihaler - Active lutein 6 mg tablet - Active Xigduo XR 5 mg-1,000 mg tablet,extended release take 1 tablet by oral route every day in the morning with food 1.00 tablet - Active metformin 850 mg tablet take 1 tablet by oral route 2 times every day with morning and evening meals 850 MG - Active montelukast 10 mg tablet take 1 tablet b y oral route every day in the evening 10 MG - Active rosuvastatin 20 mg tablet take 1 tablet by oral route every day 20 MG - Active gabapentin 300 mg capsule take 1 capsule by oral route 3 times every day 300 MG - Active clopidogrel 75 mg tablet take 1 tablet b y oral route every day 75 MG - Active Procedures Procedure Date Fundus Photography Est Pt Detailed Scan Computerized; Retina Est Pt Complete Advance Directives Directive Yes / No Effective Date File Name No Information Encounters Encounter Description Practice Location Reason(s) For Visit Diagnoses Date Provider Providers Copied on Encounter Est Pt Detailed [facility], [address] , [place], [place], [id number], tel:[phone] [facility] Diabetic eye exam (chief complaint) Retinal eval (chief complaint) Type 2 diabetes mellitus w/o complicationVi treous degeneration, bilateralNonex udative age-related macular degeneration, bilateral, early dry stage 0 No Information [facility], [facility] [place], [place], [id number], tel:[phone] [facility] Retinal Eval (chief complaint) floaters (chief complaint) Diabetic Exam (chief complaint) Type 2 diabetes mellitus w/o complicationOt her secondary cataract, right eyeVitreous degeneration, bilateral 8 Sayda Márquez. [address], [place], [id number], [place]. tel:[phone] Referring Provider: Willi Alfredo, [address] [place], [address] . tel:[phone] Family History Family Member Type Diagnosis Age At Onset Mother Problem (finding) Cardiovascular disease Brother Problem (finding) cataract Father Problem (finding) Diabetes mellitus Payers Payer name Insurance type Covered republican ID Authoriza tion(s) No Information Social History Type Description Quantity Date Captured Comments Alcohol Use Details Unknown Caffeine Use Details Unknown Tobacco Use Status Current non-smoker 20 Smoking Status Former smoker Non-Smoking Tobacco Use Details : No Details Available : No Details Available Sex Female Chief Complaint And Reason For Visit From encounter dated '09/30/2019 12:50'. Diabetic eye exam (chief complaint) Retinal eval (chief complaint) Reason For Referral Reason For Referral No Information History Of Present Illness Encounter Date Complaint History Of Prese nt Illness Diabetic eye exam The 64 year ol d female presents for evaluation of Diabetic eye exam in the right eye and left eye. It started about 6 year(s) ago. The symptom is constant. Pt is type 2 diabeticBSL : 110 A1C 5.6Patient went to see outside OD and was given a pair of glasses which only correct her to 20/30. Patient was issued two pair of glasses, distance and near. Retinal eval The 63 year old female presents for evaluation of Retinal Eval in the right eye and left eye. It started about 2 year(s) ago. The symptom is constant. The condition is significant. Pt states she has been seeing floaters. Pt states its hard to drive at night because she can't see.Pt denies flashes, pain, itchy, watery, dryness Retinal Eval The 63 year old female presents for evaluation of Retinal Eval in the right eye and left eye. It started about 1 year(s) ago. The symptom is constant. The condition is significant. pt states she has been seeing shadowy squiggles for the last year, but the month she has been seeing more. Pt states she does not drive at night because she can't really see well. Pt denies flashes/painS/P Phako IOL OU floaters The patient is p resent for evaluation of floaters in the right eye and left eye. It started about 1 year(s) ago. The symptom is constant. The condition is significant. Diabetic Exam The patient is p resent for evaluation of Diabetic Exam in the right eye and left eye. It started about 5 year(s) ago. The symptom is constant. The condition is significant. pt is Type 2 DiabBS in the am runs between 100-140 Last A1C was 8.2 Functional Status Date Functional Assessmen t No Information Instructions Date Instruction Additional Infor vasiliy Return in 12 months for complete eye exam with dilation. Related to Nonexudative age-related macular degeneration, bilateral, early dry stage Return in 12 months for diabetic evaluation with Dr. Berry. Related to Type 2 diabetes mellitus w/o complication Impression/Plan - Po sterior vitreous detachment accounts for the patient's complaints. There is no evidence of retinal pathology. All signs and risks of retinal detachment and tears were discussed in detail. Patient instructed to call the office immediately if any symptoms noted. Related to Vitreous degeneration, bilateral Impression/Plan - Di abetes w/o Complications: No signs of diabetic retinopathy noted. No treatment necessary at this time. Patient was instructed to monitor vision for sudden changes and to call if visual changes noted. Discussed ocular and systemic benefits of blood sugar control. Continue management with PCP. Letter sent to PCP regarding status of ocular health. Related to Type 2 diabetes mellitus w/o complication Follow up - Return i n 12 months for complete eye exam with dilation. Related to Nonexudative age-related macular degeneration, bilateral, early dry stage Impression/Plan - Di scussed diagnosis in detail with patient. Discussed treatment options with patient. Use of vitamins has shown to improve the effects of ARMD. Counseling about the benefits and/or risks of the Age-Related Eye Disease Study (AREDS) formulation for preventing progression of age-related macular degeneration (AMD) was provided to the patient and/or caregiver(s). Use of Amsler grid was explained. Will continue to monitor vision and the patient has been instructed to call with any vision changes.Ordered and reviewed Fundus photos. Related to Nonexudative age-related macular degeneration, bilateral, early dry stage Follow up - Return i n 12 months for diabetic evaluation with Dr. Berry. Related to Type 2 diabetes mellitus w/o complication f/u in 6 wks for de/oct w/Dr Susan james Related to Vitreous degeneration, bilateral schedule Yag laser t x OD next available Related to Other secondary cataract, right eye f/u in 6 mos for de/oct w/Dr Susan james Related to Type 2 diabetes mellitus w/o complication Impression/Plan - Di scussed diagnosis in detail with patient. Recommend Yag Laser treatment for vision improvement. Discussed risks/benefits of laser [place]. All questions answered. Patient elects to proceed with recommendation. Related to Other secondary cataract, right eye Follow up - f/u in 6 mos for de/oct w/Dr Alfredo Related to Type 2 diabetes mellitus w/o complication Impression/Plan - Di scussed diagnosis in detail with patient. Exam shows no Diabetic changes OU. No treatment is recommended at this time. Emphasized blood sugar control and advised to keep future appointments with PCP and/or Carpenters Supervisor for the management of Diabetes. Recommend observation for now. OCT shows no active edema OU with mild ILM change OD. Related to Type 2 diabetes mellitus w/o complication Impression/Plan - Po sterior vitreous detachment accounts for the patient's complaints. There is no evidence of retinal pathology. All signs and risks of retinal detachment and tears were discussed in detail. Patient instructed to call office immediately if any symptoms noted. If floaters persist surgery can be consider in the future. Related to Vitreous degeneration, bilateral Follow up - schedule Yag laser tx OD next available Related to Other secondary cataract, right eye Follow up - f/u in 6 wks for de/oct w/Dr Alfredo Related to Vitreous degeneration, bilateral Assessments Type Assessment Date assessment Type 2 diabetes mellitus w/o com plication impression Type 2 diabetes mellitus w/o com plication: E11.9 assessment Vitreous degeneration, bilateral assessment Nonexudative age-rel ated macular degeneration, bilateral, early dry stage impression Vitreous degeneration, bilateral : H43.813 impression Nonexudative age-rel ated macular degeneration, bilateral, early dry stage: H35.3131 Patient Care Teams Name Effective Dates (start - stop) Status Members No Information
--- OUTSIDE RECORDS SUMMARY | 2024-10-30 11:30 | XMS_ITS | Encounter Summary ---
Author Organization [facility] Address [address] [place] [address] Care Team Providers Care Laborer Brush Clearing Name Role Phone Kati Colin M.D. Primary Care Provider Reason for Visit * Reason Onset Date Comments COPD 10/29/2024 Encounter Details Date Type Department Care Team (Late st Contact Info) Description 10/29/2024 Nurse Triage Department of Family Medicine, [facility], in [place], [place] [address] [place] [phone] Ellie Palencia R.N. [address] [place] [phone] COPD Social History Tobacco Use Types Packs/Day Years Used Date Smoking Tobacco: Former Cigarettes 0.8 88.9 0 09/29/1969 - 08/23/2018 Smokeless Tobacco: Never Comments:Quit smoking severa l times for several months Alcohol Use Standard Drinks/Week Comments Yes 4 (1 standard drink = 0.6 oz pur e alcohol) [facility] Utilities Answer Date Recorded In the past 12 months has e electric, gas, oil, or water company threatened [...] Date Recorded Dental: Regular Dentist No 05/07/20 24 Employment Answer Date Recorded Employment status Retired 05/07/2024 Housing Stability Answer Date Recorded What is your living situation today? I have a [facility] place to live 06/28/2024 Comments No Sex and Gender Information Value Date Recorded Sex Assigned at Female 05/07/2024 7:38 AM CDT Legal Sex Female 3:35 PM DYNAMOMETER MECHANIC Gender Identity Female 05/07/2024 7:38 AM CDT Sexual Orientation Straight 05/07/2024 7: 38 AM CDT documented as of this encounter Miscellaneous Notes * Telephone Encounter - Ellie Palencia R.N. - 10/29/2024 5:02 PM DYNAMOMETER MECHANIC Chief Complaint / Reason for Call Patient is a 69 y.o. female calling regarding COPD. Assessment Concern: COPD 3L oxygen continuous, nebs TID x2 prescriptions, 92-97% Band of pain around chest, upper back, ribs; spasms occur. States it's all muscle pain, also describes spasms occurring. Pain with deeps breaths, feeling increased shortness of breath quicker, harder to recover due to pain. States pain muscles spasm and hurt Calling to request: appointment The recommended disposition is See a health care provider within 4 hours (overriding See a health care provider within 24 hours). Recommend monitoring current symptoms for changes. Call back with new, worsening, or persistent symptoms; or for new concerns or questions. Advised ED is open 21/04 for evaluation if needed for concerns or severe symptoms or lack of clinic access. Patient instructed to call back to schedule an appointment during clinic hours. Reason for Disposition [1] MILD difficulty breathing (e.g., minimal/no SOB at rest, SOB with walking) AND [2] worse than normal Protocols used: COPD Oxygen Monitoring and Lcyxpyq-Ufoos-WJ Care Advice Patient/Caregiver understands and will follow care advice?: Yes, able to teach back COPD Oxygen Monitoring and Lqgjshr-Bxvth-EA Nurse Ellie Rodriguez Oct 29, 2024 05:25 PM Care Advice CALL BACK IF: * Fever higher than 100.4 F (38.0 C) * You become worse MOMETER MECHANIC documented in this encounter Plan of Treatment Upcoming Encounters Date Type Department Care Team (Latest Contact Info) Description 11/01/2024 9:50 AM DYNAMOMETER MECHANIC Appointment Department of Laboratory Medicine in [address] [phone] Kati Colin M.D. [address] [place] [phone] 11/01/2024 10:10 AM DYNAMOMETER MECHANIC Appointment Department of Laboratory Medicine in [address] [phone] Kati Colin M.D. [address] [place] [phone] 11/03/2024 3:30 PM DYNAMOMETER MECHANIC Comprehensive Visit Department of Ophthalmology in [place], [place] [address] [place] [phone] Hipolito Lynch M.D. [address], [place] [phone] 12/09/2024 9:30 AM CDT Appointment Department of Cardiovascular Diseases in [place], [place] [address] [place] [phone] Kati Colin M.D. [address] [place] [phone] Discharge Disposition: Home or Self Care 12/22/2024 10:30 AM CDT Clinical Communication Virtual Review in [place], [place] [address] [place] [phone] 12/23/2024 10:00 AM CDT Diagnostic Division of Pulmonary Medicine in [place], [place] [address] [place] [phone] Margarita Martinez APRN, C.N.P., D.N.P. [address] [place] [phone] 12/23/2024 10:30 AM CDT Diagnostic Division of Pulmonary Medicine in [address] [phone] Margarita Martinez APRN, C.N.P., D.N.P. [address] [place] [phone] 12/23/2024 11:30 AM CDT Office Visit Division of Pulmonary Medicine in [place], [place] [address] [place] [phone] Margarita Martinez APRN, C.N.P., D.N.P. [address] [place] [phone] documented as of this encounter Visit Diagnoses Not on filedocumented in this encounter Care Teams Laborer Brush Clearing Relationship Specialty Start Date End Date Kati Colin M.D. [address] [place] [phone] PCP - General Family Medicine 03/09/24 documented as of this encounter
--- OUTSIDE RECORDS SUMMARY | 2024-10-30 11:30 | XMS_ITS | Encounter Summary ---
Author Organization [facility] Address [address] [place] [address] Care Team Providers Care Payment Rep Name Role Phone Kati Colin M.D. Primary Care Provider [phone] Reason for Referral * Outpatient (Routine) - Authorized Specialty Diagnoses / Procedures Referred By Phani cruz Referred To Contact Ophthalmology Diagnoses Diabetes Mellitus Type 2 (HCC) Kati Colin M.D. [address] [place] [address] Phone: tel: fax: [facility] Region Referral ID Status Reason Start Date Expiration Date Visits Requested Visits Authorized [id number] Authorized Specialty Services Required 10/11/2024 04/12/2026 1 1 Scheduling Instructions Do not schedule prior to due date to ensure insurance coverage Dilated Eye Exam Never done SWEEPING OFFICER * Outpatient (Routine) - Closed Specialty Diagnoses / Procedures Referred By Phani cruz Referred To Contact Diagnoses Chronic Obstructive Pulmonary Disease Without Exacerbation (HCC) Procedures DX Chest AP or PA and Lateral 2 Views Kati Colin M.D. [address] [place] [address] Phone: tel: fax: [facility] Region Referral ID Status Reason Start Date Expiration Date Visits Re quested Visits Authorized [id number] Closed 10/11/2024 10/11/2025 1 1 SWEEPING OFFICER Reason for Visit * Reason Comments Cough Cough, congestion, s ob, and BP f/u * Appointment Request (Routine) - Closed Specialty Diagnoses / Procedures Referred By Phani t Referred To Contact Family Medicine Referral ID Status Reason Start Date Expiration Date Visits Re quested Visits Authorized [id number] Closed 10/06/2024 10/06/2025 1 1 Encounter Details Date Type Department Care Team (Late st Contact Info) Description 10/11/2024 11:00 AM MINESWEEPING OFFICER Office Visit Department of Family Medicine, [facility], in [address] [phone] Kati Colin M.D. [address] [place] [address] Chronic Obstructive Pulmonary Disease Without Exacerbation (HCC) (Primary Dx); Failure Heart (HCC); Chronic Respiratory Failure With Hypoxia (HCC); Morbid Obesity Body Mass Index 40.0-44.9 Adult (HCC); Diabetes Mellitus Type 2 (HCC); Screening Cancer Colon; Cough Unspecified Type Social History Tobacco Use Types Packs/Day Years Used Date Smoking Tobacco: Former Cigarettes 0.8 88.9 0 09/29/1969 - 08/23/2018 Smokeless Tobacco: Never Comments:Quit smoking severa l times for several months Alcohol Use Standard Drinks/Week Comments Yes 4 (1 standard drink = 0.6 oz pur e alcohol) [facility] Utilities Answer Date Recorded In the past 12 months has e [employer], gas, oil, or water company threatened to [...] your living situation today? I have a [facility] place to live 06/28/2024 Comments No Sex and Gender Information Value Date Recorded Sex Assigned at Female 05/07/2024 7:38 AM CDT Legal Sex Female 3:35 PM MINESWEEPING OFFICER Gender Identity Female 05/07/2024 7:38 AM CDT Sexual Orientation Straight 05/07/2024 7: 38 AM CDT documented as of this encounter Last Filed Vital Signs Vital Sign Reading Time Taken Comments Blood Pressure 122/72 10/11/2024 10:45 AM MINESWEEPING OFFICER av erage Pulse 75 10/11/2024 10:45 AM MINESWEEPING OFFICER Temperature 35.3 C (95.5 F) 10/11/2024 10:45 AM MINESWEEPING OFFICER Respiratory Rate 16 10/11/2024 10:45 AM MINESWEEPING OFFICER Oxygen Saturation 95% 10/11/2024 10:45 AM MINESWEEPING OFFICER Inhaled Oxygen Concentration - - Weight 115 kg (253 lb 6.7 oz) 10/11/2024 10:45 A M MINESWEEPING OFFICER Height - - Body Mass Index 41.72 08/02/2024 8:58 AM MINESWEEPING OFFICER documented in this encounter Progress Notes * Kati Colin M.D. - 10/11/2024 11:00 AM CST Progress Note Luz Richardson is a 68 y.o. female with past medical history chronic medical conditions including osteoporosis on alendronate, type 2 diabetes with most recent A1c 6.0, COPD, chronic respiratory failure on baseline oxygen, subarachnoid hemorrhage, hypertension, pulmonary hypertension, status post c arotid endarterectomy, physical deconditioning, osteoarthritis of the lower back and bilateral hips, utilization of a walker for ambulation, status post PFO closure device in place, emphysema, hypertensive heart disease with diastolic dysfunction she is status post PFO closure device Cough This is a new problem. Episode onset: 13 days. The cough is Productive of sputum. Associated symptoms include nasal congestion, postnasal drip, shortness of breath and wheezing. Pertinent negatives include no chest pain, chills, ear congestion, ear pain, fever, headaches, heartburn, hemoptysis, myalgias, rash, rhinorrhea, sore throat, sweats or weight loss. Associated symptoms comments: - Post-viral cough since New Year's: clear to yellow sputum - SOB worsening - Occasional wheezing/rattling - Intermittent sore throat - Post-nasal drip with nasal congestion - Mucinex ineffective - Using rescue inhaler 3-4 times daily - Reports chest tightness - Sleep: normal . Treatments tried: albuterol inhler 3-4 days. Allergies Allergen Reactions Doxycycline Diarrhea Hydrocodone Itching and Rash Oxycodone-Acetaminophen Itching and Rash Current Outpatient Medications: acetaminophen (TylenoL 8 Hr) 650 mg ER tablet, Take 1,300 mg by mouth every 8 (eight) hours., Disp:, Rfl: albuterol 90 mcg/actuation inhaler, Inhale 2 puffs every 6 (six) hours as needed for wheezing., Disp: 18 g, Rfl: 3 alendronate (Fosamax) 10 mg tablet, Take 10 mg by mouth once a week., Disp: , Rfl: ammonium lactate (Lac-Hydrin) 12 % lotion, Apply 1 Application topically 2 (two) times a day., Disp: , Rfl: azithromycin (Zithromax) 500 mg tablet, 500 mg daily on , , , Disp: 36 tablet, Rfl: 3 B complex-vitamin (Super B-50) capsule, Take 1 capsule by mouth daily., Disp: , Rfl: budesonide (Pulmicort) 0.5 mg/2 mL nebulizer solution, Inhale 2 mL (0.5 mg total) by nebulization 3(three) times a day. Rinse mouth with water after use to reduce aftertaste and incidence of candidiasis. Do not swallow., Disp: 540 mL, Rfl: 3 cetirizine (ZyrTEC) 10 mg tablet, Take 10 mg by mouth every morning., Disp: , Rfl: cholecalciferol (Vitamin D3) 125 mcg (5,000 Unit) tablet, Take 10,000 Units by mouth daily., Disp: , Rfl: dapagliflozin propanediol (Farxiga) 5 mg tablet, Take 5 mg by mouth daily., Disp: , Rfl: diclofenac sodium (Voltaren) 1 % gel, Place 2 g on the skin. PRN has not started yet, Disp: , Rfl: DME Oxygen, 3 L by continuous inhalation route daily., Disp: , Rfl: DME Oxygen, DME Order - for details see Order Report, Disp: 1 each, Rfl: 0 formoterol (Perforomist) 20 mcg/2 mL nebulizer solution, Inhale 2 mL (20 mcg total) by nebulization2 (two) times a day., Disp: 360 mL, Rfl: 3 furosemide (Lasix) 20 mg tablet, Take 1 tablet (20 mg total) by mouth daily. M, W, F, Disp: 90 tablet, Rfl: 3 glipiZIDE (GlucotroL XL) 2.5 mg 24 hr tablet, Take 1 tablet (2.5 mg total) by mouth daily with breakfast., Disp: 90 tablet, Rfl: 3 medical cannabis capsule, Take 1 capsule by mouth. PRN - gummies or chocolate bar (Patient taking differently: Take 1 capsule by mouth as needed. PRN - gummies or chocolate bar), Disp: , Rfl: montelukast (Singulair) 10 mg tablet, take 1 tablet by mouth daily, Disp: 90 tablet, Rfl: 3 multivitamin tablet, Take 1 tablet by mouth daily., Disp: , Rfl: potassium chloride 10 mEq ER tablet, Take 1 tablet by mouth daily., Disp: , Rfl: revefenacin (Yupelri) 175 mcg/3 mL solution for nebulization nebulizer solution, Inhale 3 mL (0.175mg total) by nebulization daily., Disp: 270 mL, Rfl: 3 rosuvastatin (Crestor) 40 mg tablet, Take 1 tablet by mouth at bedtime., Disp: , Rfl: valsartan (Diovan) 160 mg tablet, Take 80 mg by mouth daily., Disp: , Rfl: vitamins A,C,Z-ewzb-xyfsrn (PreserVision AREDS) 7,160 Units-113 mg-100 Units per tablet, Take 1 tablet by mouth 2 (two) times a day., Disp: , Rfl: amitriptyline 2 % gabapentin 5 % ketamine 5 % in lipoderm, Apply topically 2 (two) times a day. Apply to feet twice a day. (Patient not taking: Reported on 10/11/2024), Disp: 60 g, Rfl: 1 dextromethorphan-guaiFENesin (Robitussin-DM) 10-100 mg/5 mL syrup, Take 5 mL by mouth every 4 (four) hours as needed for cough., Disp: 235 mL, Rfl: 3 ferrous sulfate 324 mg (65 mg iron) DR tablet, Take 65 mg of iron by mouth daily. (Patient not taking: Reported on 10/11/2024), Disp: , Rfl: predniSONE (Deltasone) 20 mg tablet, Take 1 tablet (20 mg total) by mouth daily for 5 days., Disp: 5 tablet, Rfl: 0 Past Medical History: Diagnosis Date Cataract 2006 Chronic Obstructive Pulmonary Disease (HCC) Complication Anesthesia Initial 2020 Degeneration Macular 2017 Diabetes Mellitus NOS Gastroesophageal Reflux Disease NOS Hyperlipidemia Hypertension NOS Malignant Neoplasm Of Rectum Adenocarcinoma (HCC) 2008&2014 Malignant Neoplasm Of Unspecified Part Of Lung Laterality Unknown (HCC) 2022 Migraine Headache Osteopenia Osteoporosis Other Injury Of Unspecified Body Region 2020 Most recent of many Other Specified Health Status 2020 Brain bleed Pneumonia Polyp Colon Skin Cancer (Primary) NOS 2020 Sleep Apnea Social History Tobacco Use Smoking status: Former Current packs/day: 0.00 Average packs/day: 0.8 packs/day for 88.9 years (66.7 ttl pk-yrs) Types: Cigarettes Start date: 09/29/1969 Quit date: 08/23/2018 Years since quittin.1 Smokeless tobacco: Never Tobacco comments: Quit smoking several times for several months Vaping Use Vaping status: never used Substance Use Topics Alcohol use: Yes Alcohol/week: 4.0 standard drinks of alcohol Types: 4 Shots of liquor per week Drug use: Yes Frequency: 4.0 times per week Types: Marijuana Comment: Medicinal Constitutional: - Negative for chills, fever and weight loss. Skin: - Negative for skin rash. ENT: Positive for postnasal drip. - Negative for ear pain, rhinorrhea and sore throat. Respiratory: Positive for coughing, shortness of breath and wheezing. - Negative for hemoptysis. Cardiovascular: - Negative for chest pain, pressure or tightness. Gastrointestinal: - Negative for heartburn. Musculoskeletal: - Negative for muscle pain/stiffness. Neurological: - Negative for headaches. Vitals: 10/11/24 1045 BP: 122/72 BP Location: Right arm Patient Position: Sitting Cuff Size: Large Pulse: 75 Resp: 16 Temp: (!) 35.3 ??C TempSrc: Temporal SpO2: 95% Weight: 115 kg Constitutional Appearance: She is well-developed. HENT Head: Normocephalic and atraumatic. Right Ear: External ear normal. Left Ear: External ear normal. Nose: Nose normal. Eyes Conjunctiva/sclera: Conjunctivae normal. Pupils: Pupils are equal, round, and reactive to light. Cardiovascular Rate and Rhythm: Normal rate and regular rhythm. Heart sounds: Normal heart sounds. Pulmonary Effort: Pulmonary effort is normal. No respiratory distress. Breath sounds: Normal breath sounds. Abdominal General: Bowel sounds are normal. There is no distension. Palpations: Abdomen is soft. There is no mass. Tenderness: There is no abdominal tenderness. There is no guarding. Musculoskeletal General: Normal range of motion. Cervical back: Normal range of motion and neck supple. Skin General: Skin is warm and dry. Neurological Mental Status: She is alert and oriented to person, place, and time. Deep Tendon Reflexes: Reflexes are normal and symmetric. Psychiatric Behavior: Behavior normal. Luz was seen today for cough. Diagnoses and all orders for this visit: Chronic Obstructive Pulmonary Disease Without Exacerbation (HCC) - DX Chest AP or PA and Lateral 2 Views; Future Failure Heart (HCC) Chronic Respiratory Failure With Hypoxia (HCC) Morbid Obesity Body Mass Index 40.0-44.9 Adult (HCC) Diabetes Mellitus Type 2 (HCC) - Ophthalmology - General consult (clinic); Future Screening Cancer Colon - Cologuard - Sent Out Lab; Future Cough Unspecified Type Other orders - predniSONE (Deltasone) 20 mg tablet; Take 1 tablet (20 mg total) by mouth daily for 5 days. - dextromethorphan-guaiFENesin (Robitussin-DM) 10-100 mg/5 mL syrup; Take 5 mL by mouth every 4 (four) hours as needed for cough. Post-viral cough with SOB - CXR ordered - Prednisone 20mg daily for 5 days - Consider antibiotics pending CXR results - Continue current nebuliser regimen: one medication twice daily, one once daily, one thrice daily - Teslon tablets for congestion as needed - Continue Yupelri daily, Formoterol twice a day, and Budesonide three times a day Continue azithromycin 500 mg three times a week for exacerbation prevention Weight Management - Counselled on diet modification: reduce carbohydrate intake - Encouraged to resume exercise when able - Continue Lasix as prescribed Preventive Care - Eye exam referral placed - Cologuard ordered instead of colonoscopy SWEEPING OFFICER documented in this encounter Plan of Treatment Upcoming Encounters Date Type Department Care Team (Latest Contact Info) Description 11/01/2024 9:50 AM MINESWEEPING OFFICER Appointment Department of Laboratory Medicine in [address] [phone] Kati Colin M.D. [address] [place] [phone] 11/01/2024 10:10 AM MINESWEEPING OFFICER Appointment Department of Laboratory Medicine in [address] [phone] Kati Colin M.D. [address] [place] [phone] 11/03/2024 3:30 PM MINESWEEPING OFFICER Comprehensive Visit Department of Ophthalmology in [place], [place] [address] [place] [phone] Hipolito Lynch M.D. [address] [phone] 12/09/2024 9:30 AM CDT Appointment Department of Cardiovascular Diseases in [place], [place] [address] [place] [phone] Kati Colin M.D. [address] [place] [phone] Discharge Disposition: Home or Self Care 12/22/2024 10:30 AM CDT Clinical Communication Virtual Review in [place], [place] [address] [place] [address] 12/23/2024 10:00 AM CDT Diagnostic Division of Pulmonary Medicine in [place], [place] [address] [place] [phone] Margarita Martinez APRN, C.N.P., D.N.P. [address] [place] [phone] 12/23/2024 10:30 AM CDT Diagnostic Division of Pulmonary Medicine in [address] [phone] Margarita Martinez APRN, C.N.P., D.N.P. [address] [place] [phone] 12/23/2024 11:30 AM CDT Office Visit Division of Pulmonary Medicine in [address] [phone] Margarita Martinez APRN, C.N.P., D.N.P. [address] [place] [phone] Scheduled Orders Name Type Priority Associated Diagnoses Orde r Schedule Cologuard - Sent Out Lab Lab Routine Screening Cancer Colon Expected: 10/12/2024, Expires: 01/09/2026 Scheduled Referrals Name Type Priority Associated Diagnoses Order Schedule Ophthalmology - General consult (clinic) Outpatient Referral Routine Diabetes Mellitus Type 2 (HCC) Expected: 10/11/2024 (Approximate), Expires: 01/09/2026 documented as of this encounter Results * DX Chest AP or PA and Lateral 2 Views (10/11/2024 11:53 AM MINESWEEPING OFFICER) Anatomical Region Laterality Modality Chest, Thoracic RST LOS, Tho racic ARZ LOS, Thoracic FLA LOS N/A Digital Radiography Impressions 10/11/2024 12:07 PM MINESWEEPING OFFICER No focal consolidation or pleural effusion size. PFO closure device. Atherosclerotic vascular disease. Indeterminate nodular opacity of the right upper lung, not significantly changed in size from prior CT when accounting for differences in modality. Postoperative changes wedge resection of the right upper lung. Narrative 10/11/2024 12:07 PM MINESWEEPING OFFICER EXAM: DX CHEST AP OR PA AND LATERAL 2 VIEWS Procedure Note Perico Murrell M.D. - 10/11/2024 EXAM: DX CHEST AP OR PA AND LATERAL 2 VIEWS IMPRESSION: No focal consolidation or pleural effusion size. PFO closure device.Atherosclerotic vascular disease. Indeterminate nodular opacity of theright upper lung, not significantly changed in size from prior CT whenaccounting for differences in modality. Postoperative changes wedge resection of the right upper lung. Kati Colin M.D. [facility] Final Result documented in this encounter Visit Diagnoses Diagnosis Chronic Obstructive Pulmonary Disease Without Exacerbation (HCC)- Primary Failure Heart (HCC) Chronic Respiratory Failure With Hypoxia (HCC) Morbid Obesity Body Mass Index 40.0-44.9 Adult (HCC) Diabetes Mellitus Type 2 (HCC) Screening Cancer Colon Cough Unspecified Type Chronic Obstructive Pulmonary Disease Without Exacerbation (HCC) documented in this encounter Care Teams Payment Rep Relationship Specialty Start Date End Date Kati Colin M.D. [address] [place] [phone] PCP - General Family Medicine 03/09/24 documented as of this encounter
--- OUTSIDE RECORDS SUMMARY | 2024-10-30 11:30 | XMS_ITS | Data Portability ---
Author Organization [place] - [facility], [employer] Address [address] [place] [address] Assessment Encounter Date Assessment Date Assessment LastModified by Organization Details LastModified Time 08/25/2024 08/25/2024 Discussed postoperative course with the patient today. Removed postoperative dressing and closely inspected the surgical site today. No SOI present 1/2 sutures removed today. Strapped the L foot and ankle in a pnkezz-[id number] fashion to mitigate postoperative edema and provide stability to the surgical site using a multilayer compressive dressing. Patient is to continue weightbearing in the PO shoe. They will return to clinic in 1 week for reevaluation for remaining suture removal. Patient verbalized understanding and is in agreement with the above treatment plan. simona Not available 08/27/2024 13:57:27 09/01/2024 09/01/2024 Discussed postoperative course with the patient today. Removed postoperative dressing and closely inspected the surgical site today. No SOI present Today I removed the majority of the stitches from the patient's toe, leaving two in place to be removed at the next visit. I applied butterfly bandages (Steri-Strips) to reinforce the skin and provided the patient with extra strips to use as needed. I advised the patient to avoid soaking the foot and to keep the area dry, allowing it to scab over naturally. The patient was instructed to avoid using lotion or moisturizer on the surgical site. I recommended that pt can either return to a stiff sole gym shoe or needs to continue using her PO shoe at all times. I scheduled a follow-up appointment in one week to remove the remaining stitches and to take x-rays to ensure proper healing. I emphasized the importance of wearing clean socks to prevent infection and allowed the use of a band-aid for additional protection if desired. simona Not available 09/02/2024 12:04:49 09/08/2024 09/08/2024 For the status post IPJ fusion, left hallux, I advised the patient to continue wearing the post-operative shoe for another two weeks. I scheduled a follow-up appointment in two weeks to obtain weightbearing radiographs to assess bone healing. I informed the patient that complete bone healing typically takes 6 to 8 weeks. I advised against applying lotion or soaking the foot until further notice. simona Not available 09/09/2024 13:20:30 09/23/2024 09/23/2024 I told the patient to apply triple antibiotic ointment, Vaseline, or Bacitracin to the surgical site to keep it well hydrated along the incision. I advised the patient to continue wearing supportive shoes to protect the area. I scheduled a follow-up appointment in two to three weeks for additional x-rays to monitor the fusion progress simona Not available 09/23/2024 10:36:36 10/13/2024 10/13/2024 I told the patient that the fusion site is stable and healing well, with some areas still requiring further union but should these fail to have a full union, as long as she remains asymptomatic, we will monitor. I advised the patient to avoid activities that involve excessive bending of the toes but otherwise allowed normal activities and footwear. I scheduled a follow-up visit in one month, at which time we will obtain additional x-rays to monitor the healing process. Will also plan for nail debridement at that time simona Not available 10/13/2024 10:58:08 Plan of Treatment Reminders Order Date Submit Date Provider Last Modified By Organization Details Last Modified Time Details Appointments POST OP 15 025 02:00PM RUTHANN LEÓN DPM Not available Not available Not available Lab None recorde d. Referral None recorde d. Procedures strappi ng; ankle and/or foot (PROC) [id number] Not available 08/27/2024 13:57:44 Surgeries None recorde d. Imaging XR, foot, 3 or more view [facility], [address] [place] [address] [place], [address], 09/10/2024 17:19:22 XR, foot, 3 or more view 024 024 [facility], [address] [place] [address] [place], [address], 10/07/2024 04:08:39 XR, foot, 3 or more view 025 025 [facility], [address] [place] [address], [address], 10/14/2024 17:42:08 Medication Orders None recorde d. Patient TargetsNo targets recorded. Patient InstructionsNo instructions recorded. Reason for Referral None Reported. Results Created Date Observation Date Name Description Value Unit Range Abnormal Flag Note LastModifiedBy Organization Detail LastModifiedTime 09/09/20 24 XR, foot, 3 or more view No observ ation record ed. [address] [place], [address], 09/09/2024 13:19:37 10/13/19 25 XR, foot, 3 or more view No observ ation record ed. [address] [place], [address], 10/13/2024 10:55:28 Result Notes None recorded. Problems Name Problem SNOMED Code Status Onset Date Resolution Date Notes Provider Name and Address Organization Details Recorded Time Diabetic care Active [address] Correa 07/05/24 CALEB Salazar - [facility] 10:14:17 Problem Notes None recorded. Procedures Surgical History None recorded. Imaging Results Imaging Date Name Status LastModified by Organiz ation Details LastModified Time 09/09/2024 XR, foot, 3 or more view active [address] [place], [address], 09/09/2024 13:19:37 10/13/2024 XR, foot, 3 or more view active simona [facility] [address], [place], [address], 10/13/2024 10:55:28 Procedure Notes None recorded. Medical Equipment None Reported. Medications Name Sig Start Date Stop Date Status Note LastModified by Organization Details LastModified Time alendronate 10 mg tablet active Not Available Not Available Not Available prednisone 10 mg tablet 05/26 completed Not Available Not Available Not Available doxycycline hyclate 100 mg capsule 05/26 completed Not Available Not Available Not Available tizanidine 2 mg tablet TAKE 1 TABLET BY MOUTH EVERY 8 HOURS NEEDED FOR MUSCLE SPASMS active Not Available Not Available No t Available ammonium lactate 12 % lotion APPLY 1 APPLICATI ON EVERY DAY BY TOPICAL ROUTE active Not Available Not Available No t Available azithromyci n 250 mg tablet 05/26 completed Not Available Not Available Not Available benzonatate 200 mg capsule 05/26 completed Not Available Not Available Not Available ondansetron HCl 4 mg tablet active Not Available Not Available Not Available prednisone 20 mg tablet TAKE 1 TABLET BY MOUTH DAILY active Not Available Not Available No t Available prednisone 5 mg tablet 05/26 completed Not Available Not Available Not Available potassium chloride ER 10 mEq tablet,exte nded release active Not Available Not Available Not Available acetaminoph en 300 mg-codeine 30 mg tablet TAKE 1 TABLET BY MOUTH EVERY 4 TO 6 HOURS NEEDED FOR PAIN active Not Available Not Available No t Available benzonatate 100 mg capsule 05/26 completed Not Available Not Available Not Available glipizide ER 2.5 mg tablet, extended release 24 hr active Not Available Not Available Not Available prednisone 2.5 mg tablet 05/26 completed Not Available Not Available Not Available metformin 1,000 mg tablet 05/26 completed Not Available Not Available Not Available montelukast 10 mg tablet active Not Available Not Available Not Available furosemide 20 mg tablet active Not Available Not Available Not Available cefuroxime axetil 500 mg tablet active Not Available Not Available No t Available albuterol sulfate HFA 90 mcg/actuati on aerosol inhaler INHALE 2 PUFFS BY MOUTH EVERY 4 TO 6 HOURS NEEDED FOR SHORTNESS OF BREATH OR WHEEZING active Not Available Not Available No t Available amoxicillin 875 mg-blanca rosen clavulanate 125 mg tablet TAKE 1 TABLET BY MOUTH EVERY 12 HOURS FOR 7 DAYS active Not Available Not Available No t Available valsartan 160 mg tablet TAKE 1/2 TABLET BY MOUTH EVERY DAY active Not Available Not Available No t Available azithromyci n 500 mg tablet active Not Available Not Available Not Available rosuvastati n 40 mg tablet active Not Available Not Available Not Available Chest Congestion Relief DM 10 mg-100 mg/5 mL oral syrup active Not Available Not Available N ot Available Vitals None Recorded Social History None recorded. Functional Status None recorded. Mental Status None recorded. Family History Nothing Reported. Medical History No medical history recorded. Gynecological HistoryNo gynecological history recorded. Obstetrics History GPAL:G 0 P 0 0 0 0 Past Encounters Encounter ID Performer Location Encounter Start Date Encounter Closed Date Diagnosis/Indication Diagnosis SNOMED-CT Code Diagnosis ICD10 Code Diagnosis Note [id number] RUTHANN LEÓN DPM [facility] [address] [place] [address] 04/23/2024 11:21:09 04/26/2024 09:47:36 Foot callus 787929517 L84 Debrided patient's mycotic nails x10 in thickness and length down to healthy nail bed with nail nipper without incident. Also debrided patient's hyperkerat otic lesions x 2 with a #15 blade down to a comfortabl e level without incident. Recommende d continued use of supportive shoegear and to monitor for injury and infection. Recommende d regular follow-up to prevent complicati ons and to manage pain due to thick, elongated nails and any callus formation. All questions answered. The patient was encouraged to call with any questions or concerns. Patient will follow up in 12 weeks for high risk foot care or sooner if needed. I prescribed a prescripti on-strengt h lotion to be applied to the affected HPKs 1-2x a day. I instructed the patient to use the lotion only on the callused areas to avoid thinning other parts of the skin. The prescripti on was sent to [facility] in [place] . Peripheral neuropathy due to type 2 diabetes mellitus [id number] 107 E11.42 I discussed with the patient the importance of managing blood sugar levels to help control neuropathy symptoms. I recommende d continuing the current medication regimen and advised the patient to monitor for any new symptoms or changes. Today we also casted pt for diabetic shoes to help alleviate pressure and prevent callus leading to wound formation. Ingrowing nail 264994872 L60.0 Onychomycosis 985265517 B35.1 Pain of to e of left foot 1559205259 93462 M79.675 Pain of to e of right foot 3644822561 91482 M79.674 Acquired h ammer toe of left foot 9171344194 468704 M20.42 I explained an office procedure that can be performed to help elongate the flexor tendon to the plantar dig and reduce deformity/ pain. The patient expressed interest in this procedure, and we discussed starting with the more painful left foot. I advised the patient that recovery involves minimal downtime, with a bandage for two days and stitches that can be removed easily. Will plan for procedure at f/u in 1 wk Acquired h ammer toe of right foot [id number] 743059 M20.41 Peripheral vascular disease 748589401 I73.9 I advised the patient to adhere to the Lasix regimen as prescribed to manage swelling. I also recommende d elevating the legs when possible and wearing compressio n stockings to help reduce swelling. [id number] RUTHANN LEÓN DPM [facility] [address] [place] [address] 04/30/2024 10:00:20 05/03/2024 16:28:33 Peripheral neuropathy due to type 2 diabetes mellitus [id number] 107 E11.42 Ingrowing nail 116222690 L60.0 Onychomycosis 235038566 B35.1 Pain of to e of left foot 0318027600 01350 M79.675 Pain of to e of right foot 6925762580 16256 M79.674 Acquired h ammer toe of left foot 6989670128 502907 M20.42 Discussed the treatment options with the patient and they were given the opportunit y to ask questions which were answered to the best of the physician' s ability. They understand no guarantees either written or implied exist as to the ultimate outcome of their care plan rendered. Ultimately they voiced no questions or concerns and agreed to the care plan rendered. Prior to start of procedure, a TIME-OUT was performed to identify the correct procedure and laterality (flexor tenotomy of 2nd dig). The toe was then prepped with alcohol and allowed to dry thoroughly . Local anesthesia (2 cc of lidocaine plain) was then administer ed in a digital block fashion. Once adequate anesthesia was obtained, the toe was prepped with betadine and allowed to dry thoroughly . Attention was directed to the plantar aspect of the second toe where an incision was made at the junction between the plantar forefoot fat padding and the plantar digital skin at the level of the proximal plantar crease using a 18G needle. This incision was carried to bone and with the toe held in extension at the distal and proximal inter-phal angeal joints the flexor digitorum longus tendon was transected allowing a visible release of the toe contractur e. The forefoot was loaded and ideal correction of the deformity was appreciate d. Hemostasis was achieved via manual pressure and the skin edges were re-approxi mated with a steri-stri p. This procedure was repeated in the same manner as dig 3-5 of the left foot A well padded dressing with fold gauze sponges placed at the dorsal and plantar forefoot to allow sustained extension of the toes and flexion of the metatarso- phalangeal joints was then applied. The patient was given written postoperat lori instructio ns which were reviewed in verbal fashion today. They tolerated the procedure well. Acquired h ammer toe of right foot [id number] 469988 M20.41 Peripheral vascular disease 257155627 I73.9 [id number] RUTHANN LEÓN DPM [facility] [address] [place] [address] 4 05/07/2024 10:57:37 05/11/2024 17:15:09 Peripheral neuropathy due to type 2 diabetes mellitus 4639020414 107 E11.42 Ingrowing nail 795487265 L60.0 Onychomycosis 346168685 B35.1 Pain of to e of left foot 2015629198 42798 M79.675 Pain of to e of right foot 3391140724 70399 M79.674 Acquired h ammer toe of right foot 3071898499 878647 M20.41 Peripheral vascular disease 158181290 I73.9 [id number] RUTHANN LEÓN DPM [facility] [address] [place] [address] 4 05/26/2024 12:02:47 05/27/2024 16:59:24 Peripheral neuropathy due to type 2 diabetes mellitus 4625917064 107 E11.42 For the intermitte nt sharp pain in the toes, the patient was advised to monitor the pain and note any patterns or triggers. The new shoes and inserts are expected to help alleviate some of the discomfort . The patient was encouraged to report any worsening of symptoms or if the pain becomes more frequent or severe. Ingrowing nail 170536723 L60.0 Onychomycosis 856303737 B35.1 Pain of to e of left foot 7288223134 39037 M79.675 Pain of to e of right foot 7669582212 16246 M79.674 Acquired h ammer toe of right foot 5854811435 104170 M20.41 I did dispense one pair diabetic shoes and a 3 pair of custom multi-dens ity diabetic insoles. The insoles did conform well to the longitudin al arches. The shoes and insoles are both in good condition with no visible defects. They did fit well in both length and width. The patient did ambulate comfortabl y in the shoes prior to leaving clinic. The patient was instructed on proper break-in and use of the shoes. A break in instructio n form was discussed and dispensed to the patient. The patient was instructed to replace the inserts every four months to prevent sores and blisters. The patient was also informed about the availabili ty of bungee laces for easier shoe management if needed. The patient is to return to clinic for followup evaluation in one to 2-3 months or sooner if any problems. Peripheral vascular disease 056776636 I73.9 [id number] RUTHANN LÓEN DPM [facility] [address] [facility] [address] [place] [address] 06/23/2024 15:47:04 06/24/2024 13:37:52 Peripheral neuropathy due to type 2 diabetes mellitus 3177116498 107 E11.42 Total time spent on the E/M service was 30 minutes, which included reviewing patient history, performing a medically appropriat e examinatio n, counseling the patient, and documentin g clinical informatio n. Ingrowing nail 303259847 L60.0 Onychomycosis 685566006 B35.1 Pain of to e of left foot 7505813561 09974 M79.675 Pain of to e of right foot 2396008254 03370 M79.674 Acquired h ammer toe of right foot 5620578340 707977 M20.41 Peripheral vascular disease 819770062 I73.9 [id number] RUTHANN LEÓN DPM [facility] [address] [facility] [address] [place] [address] 07/28/2024 10:09:18 07/29/2024 09:40:16 Peripheral neuropathy due to type 2 diabetes mellitus 3832728537 107 E11.42 Total time spent on the E/M service was 30 minutes, which included reviewing patient history, performing a medically appropriat e examinatio n, counseling the patient, and documentin g clinical informatio n. Ingrowing nail 361180830 L60.0 Onychomycosis 522578215 B35.1 Pain of to e of left foot 5843126820 77377 M79.675 We reviewed in detail with the patient their specific diagnosis, etiology, and have recommende d the following treatment care plan noted below. Prior to discussion of surgery, we reviewed alternativ e treatments which have been previously exhausted. I have thoroughly counseled the patient regarding their diagnosis as noted above. Also present during this counseling was nursing staff. The patient was informed that the proposed procedure or medical interventi on involves the above and does offer a good likelihood of improving their symptoms and functional ity. The patient was made aware of the most common risks, benefits, and potential complicati ons of these options were also discussed which include but are not limited to: continued pain, delayed healing, infection, numbness, painful scar tissue formation, hematoma/s eroma formation, undercorre ction, overcorrec tion, deep venous thrombosis or phlebitis with potential for pulmonary embolus, potential that future conservati ve and/or surgical interventi on may become necessary, in catastroph ic situations the need for amputation of part or all of the foot including the ankle or lower leg, and anesthesia related complicati ons including . We discussed the fact that difficulti es may be encountere d during recovery to include difficulti es remaining PWB, incisional tenderness that requires use of pain medication or over-the-c ounter analgesics , delayed incision healing requiring ongoing use of wound care treatments /dressings /immobiliz ation techniques , edema of the operative site and lower limb for 3 to 6 months time making comfortabl e shoe gear use difficult, limping due to weakness or instabilit y about the surgical site, and need for formal physical therapy referral to aide in recovering meaningful function of their operative lower limb and foot. In the course of the evaluation we did discuss potential need for further surgery. Also discussed were possible problems or difficulti es the patient may encounter if treatment was not pursued at this time. The patient voiced that they have indicated a clear understand ing of this discussion and agreed to proceed forward with the planned surgical procedures , anesthesia , and follow-up care plan that has been arranged throughout the early post-opera tive period. Pain of to e of right foot 5928192283 54124 M79.674 Acquired h ammer toe of right foot 1371128730 636924 M20.41 Peripheral vascular disease 770743797 I73.9 Nail dystr ophy due to trauma 699002644 L60.3 I advised the patient that the subungual hematoma appears stable and does not require immediate interventi on. I recommende d monitoring the nail for any changes, such as increased looseness or signs of infection. I informed the patient that it would take approximat lisette six months for a new toenail to grow. I instructed the patient to return if the nail becomes problemati c or if there are any concerns. I also ensured the patient received a copy of the visit summary as requested. RUTHANN LEÓN DPM [facility] [address] [place] [address] 08/11/2024 09:24:05 08/13/2024 21:18:50 RUTHANN LEÓN DPM [facility] [address] [place] [address] 4 08/18/2024 10:24:35 08/18/2024 13:45:48 Cellulitis of toe of left foot 6111884762 L03.032 Peripheral neuropathy due to type 2 diabetes mellitus 2169622030 107 E11.42 Ingrowing nail 972367826 L60.0 Onychomycosis 870573867 B35.1 Pain of to e of left foot 6012143753 26103 M79.675 Pain of to e of right foot 9839013449 24668 M79.674 Acquired h ammer toe of right foot 0364444359 225468 M20.41 Peripheral vascular disease 050169023 I73.9 Nail dystr ophy due to trauma 281836018 L60.3 Blister of foot 63213313 3 S90.822A Procedure Details: patient was identified , and informed consent was obtained for the procedure. The left hallux was cleaned with antiseptic solution, and sterile technique was maintained throughout . The blister, located on the dorsal surface of the left hallux, was inspected. A sterile 15 blade was used to puncture the blister at its base, allowing the fluid to drain completely . The contents were gently expressed to minimize trauma to surroundin g tissue. The wound was then cleaned again with antiseptic solution. A sterile dressing was applied to the area, and the patient was instructed on proper care of the site, including keeping the area clean and dry, and monitoring for signs of infection. RUTHANN LEÓN DPM [facility] [address] [place] [address] 08/25/2024 14:37:36 08/30/2024 16:28:34 Peripheral neuropathy due to type 2 diabetes mellitus 4003080021 107 E11.42 Ingrowing nail 864145233 L60.0 Onychomycosis 437118934 B35.1 Pain of to e of left foot 3681127325 34487 M79.675 Pain of to e of right foot 4928101773 22154 M79.674 Acquired h ammer toe of right foot 2617753651 538713 M20.41 Peripheral vascular disease 668106615 I73.9 Nail dystr ophy due to trauma 372643270 L60.3 RUTHANN LEÓN DPM [facility] [address] [place] [address] 4 09/01/2024 15:02:05 09/03/2024 09:50:01 Peripheral neuropathy due to type 2 diabetes mellitus 3158322694 107 E11.42 Ingrowing nail 533622745 L60.0 Onychomycosis 749674914 B35.1 Pain of to e of left foot 9285737807 49412 M79.675 Pain of to e of right foot 9627680002 73905 M79.674 Acquired h ammer toe of right foot 2604746427 493039 M20.41 Peripheral vascular disease 500462929 I73.9 Nail dystr ophy due to trauma 947770905 L60.3 [id number] RUTHANN LEÓN DPM [facility] [address] [address] 09/08/2024 15:24:18 09/09/2024 15:07:21 Peripheral neuropathy due to type 2 diabetes mellitus 0424763450 107 E11.42 Ingrowing nail 536785821 L60.0 Onychomycosis 270382309 B35.1 Pain of to e of left foot 9197926353 60899 M79.675 Pain of to e of right foot 9784988639 90459 M79.674 Acquired h ammer toe of right foot 4015157426 224856 M20.41 Peripheral vascular disease 242063794 I73.9 Nail dystr ophy due to trauma 704850328 L60.3 RUTHANN LEÓN DPM [facility] [address] [place] [address] 09/23/2024 09:57:32 09/26/2024 15:23:22 Peripheral neuropathy due to type 2 diabetes mellitus 3680899789 107 E11.42 Ingrowing nail 819404809 L60.0 Onychomycosis 432745549 B35.1 Pain of to e of left foot 0689801734 73003 M79.675 Pain of to e of right foot 0950219785 03996 M79.674 Acquired h ammer toe of right foot 7273073340 737930 M20.41 Peripheral vascular disease 538237234 I73.9 Nail dystr ophy due to trauma 622985628 L60.3 RUTHANN LEÓN DPM [facility] [address] [address] 10/13/2024 10:37:16 10/13/2024 12:15:39 Peripheral neuropathy due to type 2 diabetes mellitus 9996013617 107 E11.42 Ingrowing nail 496997045 L60.0 Onychomycosis 368659178 B35.1 Pain of to e of left foot 0789642869 75986 M79.675 Pain of to e of right foot 8869795999 34306 M79.674 Acquired h ammer toe of right foot 9028443774 638845 M20.41 Peripheral vascular disease 834224980 I73.9 Nail dystr ophy due to trauma 407785260 L60.3 Health Concerns Section Related Observation LastModified by Organization Detai ls LastModified Time None Recorded Concern Status LastModified by Organization Details LastModified Time None Recorded Advance Directives Directive None Recorded Payers Encounter Date Sequence Insurance Name Policy Number Policy Fisher Covered Member ID Fisher Member ID Guarantor Name 08/25/2024 2 AETNA (MEDICARE SUPPLEMENT) Luz Richardson [id number] Luz Martín 08/25/2024 1 [place] [employer] Luz A Silkey [id number] Luz Silkey 09/01/2024 2 AETNA (MEDICARE SUPPLEMENT) Luz Resendizey [id number] [facility] 09/01/2024 1 [place] [employer] Luz A Silkey [id number] Luz Silkey 09/08/2024 2 AETNA (MEDICARE SUPPLEMENT) Luz Resendizey [id number] [place] [facility] 09/08/2024 1 [place] [employer] Luz A Silkey [id number] Luz Silkey 09/23/2024 2 AETNA (MEDICARE SUPPLEMENT) Luz Resendizey [id number] [facility] 09/23/2024 1 [place] [employer] Luz A Silkey [id number] Luz Silkey 10/13/2024 2 AETNA (MEDICARE SUPPLEMENT) Luz Silkey [id number] [facility] 10/13/2024 1 [place] [employer] Luz A Silkey [id number] Luzjacky Resendiz Notes Date Note Type Note Provider Name and Address Organization Details Recorded Time 08/25/2024 text/html SURGICAL PROCEDU RE: L hallux IPJ fusionDATE OF SURGERY: 08/11/20 SUBJECTIVE: The patient is seen today following the above defined surgical procedure. Pt has been keeping the postoperative dressing clean, dry, and intact. Pt has been elevating the operative lower extremity and utilizing ice therapy to the posterior aspect of the knee as instructed. Pt has remained weightbearing to their operative limb using their PO shoe. The patient attempted to wear regular shoes this morning but experienced severe pain in the big toe. RUTHANN LEÓN DPM [address] [place], [address], [facility] 08/27/2024 13:58:28 09/01/2024 text/html SURGICAL PROCEDU RE: L hallux IPJ fusionDATE OF SURGERY: 08/11/20 SUBJECTIVE: The patient is seen today following the above defined surgical procedure. Pt has been keeping the postoperative dressing clean, dry, and intact. Pt has been elevating the operative lower extremity and utilizing ice therapy to the posterior aspect of the knee as instructed. Pt has remained weightbearing to their operative limb using their PO shoe. RUTHANN LEÓN DPM [address] [place] [address], [phone], [facility] 09/02/2024 12:05:10 09/08/2024 text/html SURGICAL PROCEDU RE: L hallux IPJ fusionDATE OF SURGERY: 08/11/20 SUBJECTIVE:The patient presents today for a follow-up visit, one month status post interphalangeal joint (IPJ) fusion of the left hallux. The patient reports that the toe is feeling pretty good. The patient attempted to apply steri-strips but had difficulty due to limited reach. The patient denies any significant pain and reports that the swelling has decreased. RUTHANN LEÓN DPM [address] [place], [phone], [facility] 09/09/2024 13:20:50 09/23/2024 text/html SURGICAL PROCEDU RE: L hallux IPJ fusionDATE OF SURGERY: 08/11/20 SUBJECTIVE:The patient returned for a follow-up visit six weeks after undergoing an interphalangeal joint (IPJ) fusion of the left hallux. The patient reports that the joint occasionally hurts but feels pretty good overall. The patient has refrained from picking at the surgical area and has been wearing good supportive shoes as advised. The patient inquires about applying lotion to the area. RUTHANN LEÓN DPM [address] [place], [address], [facility] 09/23/2024 10:36:44 10/13/2024 text/html SURGICAL PROCEDU RE: L hallux IPJ fusionDATE OF SURGERY: 08/11/20 SUBJECTIVE:The patient reports that the foot is feeling good overall, with significant improvement in swelling. The patient mentions occasional pain at the tip of the toe but states that it is not present today, only if she bumps it. The patient denies any significant issues with mobility or daily activities. RUTHANN LEÓN DPM [address] [place], [address], [facility] 10/13/2024 10:58:29 OBGyn Episode No OBEpisode recorded.
--- OUTSIDE RECORDS SUMMARY | 2024-10-30 11:30 | XMS_ITS | Encounter Summary ---
Author Organization [facility] Address [address] [place] [address] Care Team Providers Care Windows Desktop Support Name Role Phone Kati Colin M.D. Primary Care Provider Reason for Visit * Reason Onset Date Comments Chest Pain 10/30/2024 Encounter Details Date Type Department Care Team (Late st Contact Info) Description 10/30/2024 Nurse Triage Department of Family Medicine, [facility], in [place], [place] [address] [place] [address] Chichi Noel, R.N. Chest Pain Social History Tobacco Use Types Packs/Day Years Used Date Smoking Tobacco: Former Cigarettes 0.8 88.9 0 09/29/1969 - 08/23/2018 Smokeless Tobacco: Never Comments:Quit smoking severa l times for several months Alcohol Use Standard Drinks/Week Comments Yes 4 (1 standard drink = 0.6 oz pur e alcohol) [facility] Utilities Answer Date Recorded In the past 12 months has th e electric, gas, oil, or water company [...] your living situation today? I have a [facility] place to live 06/28/2024 Comments No Sex and Gender Information Value Date Recorded Sex Assigned at Female 05/07/2024 7:38 AM CDT Legal Sex Female 3:35 PM BOX BLANK MACHINE FEEDER Gender Identity Female 05/07/2024 7:38 AM CDT Sexual Orientation Straight 05/07/2024 7: 38 AM CDT documented as of this encounter Miscellaneous Notes * Telephone Encounter - Chichi Noel RGuilleN. - 10/30/2024 9:23 AM CST Chief Complaint / Reason for Call Patient is a 69 y.o. female calling regarding Chest Pain. Assessment Concern: Muscle pain and spasms in upper back and ribs-feels like a squeezing sensation. Pain makesit hard to catch her breath, exacerbating her COPD. Described SOB now at rest, though able to complete full sentences and voice sounds relaxed during call. Recent plane trip to/from [place] on 10/19/24, symptoms worsened shortly after. Present for: worse the past wk. Noted hx of rib fracture. Home cares tried: Tylenol arthritis, neb-helps. Calling to request: appt this afternoon The recommended disposition is Go to ED Now. Reason for Disposition Long-distance travel in past month (e.g., car, bus, train, plane; with trip lasting 6 or more hours) Protocols used: Chest Gcvp-Rywoc-YY Care Advice Patient/Caregiver understands and will follow care advice?: Yes, able to teach back Chest Sqcm-[facility]-GI Nurse Chichi Ulrich Oct 30, 2024 09:31 AM Care Advice GO TO ED NOW: * You need to be seen in the Emergency Department. * Go to the ED at nearest Hospital. * Leave now. Drive carefully. ANOTHER ADULT SHOULD DRIVE: * It is better and safer if another adult drives instead of you. CALL 911 IF: * Severe difficulty breathing occurs * Passes out or becomes too weak to stand * You become worse BLANK MACHINE FEEDER documented in this encounter Plan of Treatment Upcoming Encounters Date Type Department Care Team (Latest Contact Info) Description 11/01/2024 9:50 AM BOX BLANK MACHINE FEEDER Appointment Department of Laboratory Medicine in [address] [phone] Kati Colin M.D. [address] [place] [address] 11/01/2024 10:10 AM BOX BLANK MACHINE FEEDER Appointment Department of Laboratory Medicine in [address] [phone] Kati Colin M.D. [address] [place] [phone] 11/03/2024 3:30 PM BOX BLANK MACHINE FEEDER Comprehensive Visit Department of Ophthalmology in [place], [place] [address] [place] [address] Hipolito Lynch M.D. [address] [place] [phone] 12/09/2024 9:30 AM CDT Appointment Department of Cardiovascular Diseases in [place], [place] [address] [phone] Kati Colin M.D. [address] [place] [phone] Discharge Disposition: Home or Self Care 12/22/2024 10:30 AM CDT Clinical Communication Virtual Review in [place], [place] [address] [place] [address] 12/23/2024 10:00 AM CDT Diagnostic Division of Pulmonary Medicine in [address] [phone] Margarita Martinez APRN, C.N.P., D.N.P. [address] [place] [phone] 12/23/2024 10:30 AM CDT Diagnostic Division of Pulmonary Medicine in [address] [phone] Margarita Martinez APRN C.N.P., D.N.P. [address] [place] [phone] 12/23/2024 11:30 AM CDT Office Visit Division of Pulmonary Medicine in [address] [phone] Margarita Martinez APRN, C.N.P., D.N.P. [address] [place] [phone] documented as of this encounter Visit Diagnoses Not on filedocumented in this encounter Care Teams Windows Desktop Support Relationship Specialty Start Date End Date Kati Colin M.D. [address] [place] [address] [place] [phone] PCP - General Family Medicine 03/09/24 documented as of this encounter
--- OUTSIDE RECORDS SUMMARY | 2024-10-30 11:30 | XMS_ITS | Encounter Summary ---
Author Organization [facility] Address [address] [place] [address] Care Team Providers Care Construction Services Technician Name Role Phone Kati Colin M.D. Primary Care Provider Reason for Visit * Reason Comments Nurse Visit Home machine B/P thania ck. Encounter Details Date Type Department Care Team (Late st Contact Info) Description 10/11/2024 11:15 AM PRESS OFFBEARER Nurse Only Department of Family Medicine, [facility], in [address] [phone] Gracy Barrientos, L.P.N. [address] [phone] Nurse Visit (Home machine B/P check.) Social History Tobacco Use Types Packs/Day Years Used Date Smoking Tobacco: Former Cigarettes 0.8 88.9 0 09/29/1969 - 08/23/2018 Smokeless Tobacco: Never Comments:Quit smoking severa l times for several months Alcohol Use Standard Drinks/Week Comments Yes 4 (1 standard drink = 0.6 oz pur e alcohol) [facility] Utilities Answer Date Recorded In the [...] your living situation today? I have a [facility] place to live 06/28/2024 Comments No Sex and Gender Information Value Date Recorded Sex Assigned at Female 05/07/2024 7:38 AM CDT Legal Sex Female 3:35 PM PRESS OFFBEARER Gender Identity Female 05/07/2024 7:38 AM CDT Sexual Orientation Straight 05/07/2024 7: 38 AM CDT documented as of this encounter Last Filed Vital Signs Vital Sign Reading Time Taken Comments Blood Pressure 110/70 10/11/2024 12:02 PM PRESS OFFBEARER Pulse 70 10/11/2024 12:02 PM PRESS OFFBEARER Temperature - - Respiratory Rate 20 10/11/2024 12:02 PM PRESS OFFBEARER Oxygen Saturation - - Inhaled Oxygen Concentration - - Weight - - Height - - Body Mass Index - - documented in this encounter Progress Notes * Gracy Barrientos L.P.N. - 10/11/2024 11:15 AM CST Luz is seen today for a blood pressure visit as ordered by No ref. provider found. Visit was conducted in clinic. Today's blood pressure reading and prior two readings: BP Readings from Last 3 Encounters: 10/11/24 122/72 10/05/24 118/71 08/30/24 143/81 . Medication list was reconciled, and patient is taking their blood pressure medication as prescribed. The patient reports no acute symptoms of hypertension Patient brought their [employer] brand/type home blood pressure monitoring device to the visit today for accuracy test. The patient's home device uses a upper arm cuff location. The right arm was used for measurement. The results were there was at least one difference of greater than 10 mmHg, the comparison is unacceptable, the device is considered inaccurate, and the recommendation was given tothe patient to obtain a new blood pressure monitoring device or contact the document control clerk for replacement if still under warranty. The manual blood pressure readings taken during the test were as follows: 118/69 P 72, 120/68 P 74, 121/74 P 72.. S OFFBEARER documented in this encounter Plan of Treatment Upcoming Encounters Date Type Department Care Team (Latest Contact Info) Description 11/01/2024 9:50 AM PRESS OFFBEARER Appointment Department of Laboratory Medicine in [address] [phone] Kati Colin M.D. [address] [place] [phone] 11/01/2024 10:10 AM PRESS OFFBEARER Appointment Department of Laboratory Medicine in [address] [phone] Kati Colin M.D. [address] [place] [address] 11/03/2024 3:30 PM PRESS OFFBEARER Comprehensive Visit Department of Ophthalmology in [place], [place] [address] [place] [address] Hipolito Lynch M.D. [address] [place] [phone] 12/09/2024 9:30 AM CDT Appointment Department of Cardiovascular Diseases in [place], [place] [address] [place] [address] Kati Colin M.D. [address] [place] [phone] Discharge Disposition: Home or Self Care 12/22/2024 10:30 AM CDT Clinical Communication Virtual Review in [place], [place] [address] [place] [address] 12/23/2024 10:00 AM CDT Diagnostic Division of Pulmonary Medicine in [address] [phone] Margarita Martinez APRN, C.N.P., D.N.P. [address] [place] [phone] 12/23/2024 10:30 AM CDT Diagnostic Division of Pulmonary Medicine in [address] [phone] Margarita Martinez APRN, C.N.P., D.N.P. [address] [place] [phone] 12/23/2024 11:30 AM CDT Office Visit Division of Pulmonary Medicine in [address] [phone] Margarita Martinez APRN, C.N.P., D.N.P. [address] [place] [phone] documented as of this encounter Visit Diagnoses Diagnosis Hypertension Essential Primary- Primary documented in this encounter Care Teams Construction Services Technician Relationship Specialty Start Date End Date Kati Colin M.D. [address] [place] [phone] PCP - General Family Medicine 03/09/24 documented as of this encounter
--- OUTSIDE RECORDS SUMMARY | 2024-10-30 11:30 | XMS_ITS | Encounter Summary ---
Author Organization [facility] Address [address] [place] [address] Care Team Providers Care Hospice Chaplain Name Role Phone Kati Colin M.D. Primary Care Provider Encounter Details Date Type Department Care Team (Late st Contact Info) Description 10/06/2024 Patient Self-Triage [facility] Symptom Spiral Weaver, Provider Social History Tobacco Use Types Packs/Day Years Used Date Smoking Tobacco: Former Cigarettes Alcohol Use Standard Drinks/Week Comments Yes 2 (1 standard drink = 0.6 oz pur e alcohol) [facility] Utilities Answer Date Recorded In the past 12 months has [employer], gas, oil, or water [employer] threatened to shut off services in your home? No 06/28/2024 PHQ-2 Answer Date Recorded PHQ-2 Score 0 07/05/2024 Exercise Vital Sign Answer Date Recorde d [...] your living situation today? I have a [facility] place to live 06/28/2024 Comments No Sex and Gender Information Value Date Recorded Sex Assigned at Female 05/07/2024 7:38 AM CDT Legal Sex Female 3:35 PM ART INSTRUCTOR Gender Identity Female 05/07/2024 7:38 AM CDT Sexual Orientation Straight 05/07/2024 7: 38 AM CDT documented as of this encounter Plan of Treatment Upcoming Encounters Date Type Department Care Team (Latest Contact Info) Description 11/01/2024 9:50 AM ART INSTRUCTOR Appointment Department of Laboratory Medicine in [address] [phone] Kati Colin M.D. [address] [place] [phone] 11/01/2024 10:10 AM ART INSTRUCTOR Appointment Department of Laboratory Medicine in [place], [place] [address] [place] [address] Kati Colin M.D. [address] [place] [address] 11/03/2024 3:30 PM ART INSTRUCTOR Comprehensive Visit Department of Ophthalmology in [place], [place] [address] [place] [phone] Hipolito Lynch M.D. [address] [place] [phone] 12/09/2024 9:30 AM CDT Appointment Department of Cardiovascular Diseases in [place], [place] [address] [place] [phone] Kati Colin M.D. [address] [place] [phone] Discharge Disposition: Home or Self Care 12/22/2024 10:30 AM CDT Clinical Communication Virtual Review in [place], [place] [address] [place] [address] 12/23/2024 10:00 AM CDT Diagnostic Division of Pulmonary Medicine in [place], [place] [address] [place] [phone] Margarita Martinez APRN, C.N.P., D.N.P. [address] [place] [phone] 12/23/2024 10:30 AM CDT Diagnostic Division of Pulmonary Medicine in [place], [place] [address] [place] [phone] Margarita Martinez APRN, C.N.P., D.N.P. [address] [place] [phone] 12/23/2024 11:30 AM CDT Office Visit Division of Pulmonary Medicine in [place], [place] [address] [place] [phone] Margarita Martinez APRN C.N.P., D.N.P. [address] [place] [phone] documented as of this encounter Visit Diagnoses Not on filedocumented in this encounter Care Teams Hospice Chaplain Relationship Specialty Start Date End Date Kati Colin M.D. [address] [place] [address] [place] [address] PCP - General Family Medicine 03/09/24 documented as of this encounter
--- OUTSIDE RECORDS SUMMARY | 2024-10-30 11:30 | XMS_ITS | Encounter Summary ---
Author Organization [facility] Address [address] [place] [address] Care Team Providers Care Classified Ad Taker Name Role Phone Kati Colin M.D. Primary Care Provider Encounter Details Date Type Department Care Team (Late st Contact Info) Description 10/12/2024 Orders Only Department of Family Medicine, [facility], in [place], [place] [address] [place] [address] Kati Colin M.D. [address] [place] [phone] Screening Cancer Colon Social History Tobacco Use Types Packs/Day Years Used Date Smoking Tobacco: Former Cigarettes 0.8 88.9 0 09/29/1969 - 08/23/2018 Smokeless Tobacco: Never Comments:Quit smoking severa l times for several months Alcohol Use Standard Drinks/Week Comments Yes 4 (1 standard drink = 0.6 oz pur e alcohol) [facility] Utilities Answer Date Recorded In the past [...] your living situation today? I have a [facility] place to live 06/28/2024 Comments No Sex and Gender Information Value Date Recorded Sex Assigned at Female 05/07/2024 7:38 AM CDT Legal Sex Female 3:35 PM ELECTRICIAN MAINTENANCE Gender Identity Female 05/07/2024 7:38 AM CDT Sexual Orientation Straight 05/07/2024 7: 38 AM CDT documented as of this encounter Plan of Treatment Upcoming Encounters Date Type Department Care Team (Latest Contact Info) Description 11/01/2024 9:50 AM ELECTRICIAN MAINTENANCE Appointment Department of Laboratory Medicine in [place], [place] [address] [place] [phone] Kati Colin M.D. [address] [place] [phone] 11/01/2024 10:10 AM ELECTRICIAN MAINTENANCE Appointment Department of Laboratory Medicine in [place], [place] [address] [place] [phone] Kati Colin M.D. [address] [place] [phone] 11/03/2024 3:30 PM ELECTRICIAN MAINTENANCE Comprehensive Visit Department of Ophthalmology in [place], [place] [address] [phone] Hipolito Lynch M.D. [address] [phone] 12/09/2024 9:30 AM CDT Appointment Department of Cardiovascular Diseases in [place], [place] [address] [place] [phone] Kati Colin M.D. [address] [place] [phone] Discharge Disposition: Home or Self Care 12/22/2024 10:30 AM CDT Clinical Communication Virtual Review in [place], [place] [address] [place] [address] 12/23/2024 10:00 AM CDT Diagnostic Division of Pulmonary Medicine in [address] [phone] Margarita Martinez APRN, C.N.P., D.N.P. [address] [place] [phone] 12/23/2024 10:30 AM CDT Diagnostic Division of Pulmonary Medicine in [address] [phone] Margarita Martinez APRN, C.N.P., D.N.P. [address] [place] [phone] 12/23/2024 11:30 AM CDT Office Visit Division of Pulmonary Medicine in [place], [place] [address] [place] [address] Margarita Martinez, LOREN, C.N.P., D.N.P. [address] [place] [phone] documented as of this encounter Visit Diagnoses Diagnosis Screening Cancer Colon documented in this encounter Care Teams Classified Ad Taker Relationship Specialty Start Date End Date Kati Colin M.D. [address] [place] [phone] PCP - General Family Medicine 03/09/24 documented as of this encounter
--- OUTSIDE RECORDS SUMMARY | 2024-10-30 11:30 | XMS_ITS | Continuity of Care Document ---
Author Organization [facility] Address [address] [place] [address] Phone Care Team Providers Care Material Inspector Name Role Phone Rafat Villavicencio MD, FACS Unavailable Unavailabl e Allergies, Adverse Reactions, Alerts Substance Reaction Status Criticality HYDROCODONE BITARTRATE itchy/ rash Active No In formation acetaminophen itchy/ rash Active No Information OXYCODONE HCL itchy/ rash Active No Information acetaminophen itchy/ rash Active No Information Medications Medication Instructions Dosage Effective Dates (start - stop) Status Comments metformin 500 mg tablet take 1 tablet by oral route 2 times every day with morning and evening meals 500 MG - Active benazepril 5 mg tablet take 1 tablet by oral route every day 5 MG - Active Singulair 10 mg tablet take 1 tablet by oral route every day in the evening 10 MG - Active pravastatin 10 mg tablet take 1 tablet by oral route every day 10 MG - Active Advair HFA 115 mcg-21 mcg/actuation aerosol inhaler inhale 2 puff by inhalation route 2 times every day in the morning and evening 2.00 puff - Active Spiriva with HandiHaler 18 mcg & inhalation capsules inhale 1 capsule by inhalation route every day - Active Procedures Procedure Date New Pt Complete Scan Computerized; Retina Offic Cons New/estab Mod Advance Directives Directive Yes / No Effective Date File Name No Information Encounters Encounter Description Practice Location Reason(s) For Visit Diagnoses Date Provider Providers Copied on Encounter [facility], [address] [place] [address], [id number], [place] tel:[phone] 5 Saud Douglass. [address] [place] [address], [id number], [place]. tel:[phone] Referring Provider: Rafat Saud, [address] [place] [address], [phone] . tel:[phone] Offic Cons New/estab Mod [facility], [facility] [place], [place], [id number], tel:[phone] No Information 7 No Information Family History Family Member Type Diagnosis Age At Onset No Information Payers Payer name Insurance type Covered constitution party ID Gómez yepez(s) [employer] [facility] [id number] Social History Type Description Quantity Date Captured Comments Alcohol Use Details No Caffeine Use Details No Tobacco Use Status Never smoked tobacco 2014 Smoking Status Never smoker Non-Smoking Tobacco Use Details : No Details Available : No Details Available Sex Female Vital Signs Date / Time: Height Weight BMI Pulse Rate Blood Pressure Temperature Respiratory Rate Body Surface Area Head Circumference Head Circ. Percentile Wt./Jeremi. Percentile BMI percentile Pulse Ox Inhaled Ox 3:32 PM 81 /min 135/88 mm[Hg] Chief Complaint And Reason For Visit No Information Reason For Referral Reason For Referral No Information History Of Present Illness Encounter Date Complaint History Of Prese nt Illness No Information Functional Status Date Functional Assessmen t No Information Instructions Date Instruction Additional Infor vasiliy - Reassured pt. DRY OU. Specialized examination and high-resolution imaging confirm retinal changes c/w DRY Macular Degeneration. AREDS2 formulation options reviewed (PRNeutr), diet, fish, Amsler, non-smoking. RETINA 5-6mo FA OD. 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 Related to PCIOL Assessments Type Assessment Date assessment Dry AMD Patient Care Teams Name Effective Dates (start - stop) Status Members No Information
--- OUTSIDE RECORDS SUMMARY | 2024-10-30 11:30 | XMS_ITS | Encounter Summary ---
Author Organization [facility] Address [address] [place] [address] Care Team Providers Care Music Mixer Name Role Phone Kati Colin M.D. Primary Care Provider [phone] Reason for Referral * Outpatient (Routine) - Closed Specialty Diagnoses / Procedures Referred By Phani cruz Referred To Contact Diagnoses Chronic Obstructive Pulmonary Disease Without Exacerbation (HCC) Procedures DX Chest AP or PA and Lateral 2 Views Kati Colin M.D. [address] [place] [address] Phone: tel: fax: [facility] Region Referral ID Status Reason Start Date Expiration Date Visits Re quested Visits Authorized [id number] Closed 10/11/2024 10/11/2025 1 [facility] Reason for Visit * Outpatient (Routine) - Closed Specialty Diagnoses / Procedures Referred By Phani cruz Referred To Contact Diagnoses Chronic Obstructive Pulmonary Disease Without Exacerbation (HCC) Procedures DX Chest AP or PA and Lateral 2 Views Kati Colin M.D. [address] [place] [address] Phone: tel: fax: [facility] Region Referral ID Status Reason Start Date Expiration Date Visits Re quested Visits Authorized [id number] Closed 10/11/2024 10/11/2025 1 1 Encounter Details Date Type Department Care Team (Latest Contact Info) Description 10/11/2024 11:43 AM CLINICAL PROGRAM CONSULTANT - 10/11/2024 11:59 PM CLINICAL PROGRAM CONSULTANT Hospital Encounter Department of Radiology in [place], [place] [address] [facility] [place] [address] Kati Colin M.D. [address] [place] [address] Chronic Obstructive Pulmonary Disease Without Exacerbation (HCC) Discharge Disposition: Home or Self Care Social History Tobacco Use Types Packs/Day Years Used Date Smoking Tobacco: Former Cigarettes 0.8 88.9 0 09/29/1969 - 08/23/2018 Smokeless Tobacco: Never Comments:Quit smoking severa l times for several months Alcohol Use Standard Drinks/Week Comments Yes 4 (1 standard drink = 0.6 oz pur e alcohol) [facility] Utilities Answer Date Recorded In the past 12 months has e electric, gas, oil, or water [employer] threatened to shut off services in your [...] your living situation today? I have a [facility] place to live 06/28/2024 Comments No Sex and Gender Information Value Date Recorded Sex Assigned at Female 05/07/2024 7:38 AM CDT Legal Sex Female 3:35 PM CLINICAL PROGRAM CONSULTANT Gender Identity Female 05/07/2024 7:38 AM CDT Sexual Orientation Straight 05/07/2024 7: 38 AM CDT documented as of this encounter Medications at Time of Discharge acetaminophen (TylenoL 8 Hr) 650 mg ER tablet Take 1,300 mg by mouth every 8 (eight) hours. albuterol 90 mcg/actuation inhaler Inhale 2 puffs every 6 (six) hours as needed for wheezing. 18 g 3 06/15/2024 alendronate (Fosamax) 10 mg tablet Take 10 mg by mouth once a week. 10/09/2023 amitriptyline 2 % gabapentin 5 % ketamine 5 % in lipoderm Apply topically 2 (two) times a day. Apply to feet twice a day. 60 g 1 06/24/2024 ammonium lactate (Lac-Hydrin) 12 % lotion Apply 1 Application topically 2 (two) times a day. 02/17/2024 azithromycin (Zithromax) 500 mg tablet 500 mg daily on M, W, F 36 tablet 3 08/12/2024 B complex-vitamin (Super B-50) capsule Take 1 capsule by mouth daily. budesonide (Pulmicort) 0.5 mg/2 mL nebulizer solutionIndicatio ns:Chronic Obstructive Pulmonary Disease Without Exacerbation (HCC) Inhale 2 mL (0.5 mg total) by nebulization 3 (three) times a day. Rinse mouth with water after use to reduce aftertaste and incidence of candidiasis. Do not swallow. 540 mL 3 09/30/2024 cetirizine (ZyrTEC) 10 mg tablet Take 10 mg by mouth every morning. cholecalciferol (Vitamin D3) 125 mcg (5,000 Unit) tablet Take 10,000 Units by mouth daily. dapagliflozin propanediol (Farxiga) 5 mg tablet Take 5 mg by mouth daily. dextromethorphan- guaiFENesin (Robitussin-DM) 10-100 mg/5 mL syrup Take 5 mL by mouth every 4 (four) hours as needed for cough. 235 mL 3 10/11/2024 diclofenac sodium (Voltaren) 1 % gel Place 2 g on the skin. PRN has not started yet 09/24/2023 DME Oxygen 3 L by continuous inhalation route daily. DME OxygenIndications :Chronic Obstructive Pulmonary Disease Without Exacerbation (HCC) DME Order - for details see Order Report 1 each 05/11/2024 ferrous sulfate 324 mg (65 mg iron) DR tablet Take 65 mg of iron by mouth daily. formoterol (Perforomist) 20 mcg/2 mL nebulizer solutionIndicatio ns:Chronic Obstructive Pulmonary Disease Without Exacerbation (HCC) Inhale 2 mL (20 mcg total) by nebulization 2 (two) times a day. 360 mL 3 07/14/2024 furosemide (Lasix) 20 mg tablet Take 1 tablet (20 mg total) by mouth daily. M, W, F 90 tablet 3 07/05/2024 glipiZIDE (GlucotroL XL) 2.5 mg 24 hr tablet Take 1 tablet (2.5 mg total) by mouth daily with breakfast. 90 tablet 3 03/18/2024 medical cannabis capsule Take 1 capsule by mouth. PRN - gummies or chocolate bar montelukast (Singulair) 10 mg tablet take 1 tablet by mouth daily 90 tablet 3 06/15/2024 multivitamin tablet Take 1 tablet by mouth daily. potassium chloride 10 mEq ER tablet Take 1 tablet by mouth daily. 02/11/2024 revefenacin (Yupelri) 175 mcg/3 mL solution for nebulization nebulizer solutionIndicatio ns:Chronic Obstructive Pulmonary Disease Without Exacerbation (HCC) Inhale 3 mL (0.175 mg total) by nebulization daily. 270 mL 3 07/14/2024 rosuvastatin (Crestor) 40 mg tablet Take 1 tablet by mouth at bedtime. 03/12/2024 valsartan (Diovan) 160 mg tablet Take 80 mg by mouth daily. 12/25/2023 vitamins A,C,X-hwxk-dbimsy (PreserVision AREDS) 7,160 Units-113 mg-100 Units per tablet Take 1 tablet by mouth 2 (two) times a day. predniSONE (Deltasone) 20 mg tablet Take 1 tablet (20 mg total) by mouth daily for 5 days. 5 tablet 10/11/2024 5 documented as of this encounter Plan of Treatment Upcoming Encounters Date Type Department Care Team (Latest Contact Info) Description 11/01/2024 9:50 AM CLINICAL PROGRAM CONSULTANT Appointment Department of Laboratory Medicine in [address] [phone] Kati Colin M.D. [address] [place] [phone] 11/01/2024 10:10 AM CLINICAL PROGRAM CONSULTANT Appointment Department of Laboratory Medicine in [address] [phone] Kati Colin M.D. [address] [place] [phone] 11/03/2024 3:30 PM CLINICAL PROGRAM CONSULTANT Comprehensive Visit Department of Ophthalmology in [place], [place] [address] [phone] Hipolito Lynch M.D. [address] [phone] 12/09/2024 9:30 AM CDT Appointment Department of Cardiovascular Diseases in [place], [place] [address] [place] [address] Kati Colin M.D. [address] [place] [phone] Discharge Disposition: Home or Self Care 12/22/2024 10:30 AM CDT Clinical Communication Virtual Review in [place], [place] [address] [place] [address] 12/23/2024 10:00 AM CDT Diagnostic Division of Pulmonary Medicine in [address] [phone] Margarita Martinez APRN, C.N.P., D.N.P. [address] [place] [phone] 12/23/2024 10:30 AM CDT Diagnostic Division of Pulmonary Medicine in [address] [phone] Margarita Martinez APRN, C.N.P., D.N.P. [address] [place] [phone] 12/23/2024 11:30 AM CDT Office Visit Division of Pulmonary Medicine in [address] [phone] Margarita Martinez APRN, C.N.P., D.N.P. [address] [place] [phone] documented as of this encounter Procedures Procedure Name Priority Date/Time Associated Diagnosis Comments DX CHEST AP OR PA AND LATERAL 2 VIEWS RAD - Routine (most inpatients and all outpatients) 10/11/2024 11:53 AM CLINICAL PROGRAM CONSULTANT Chronic Obstructive Pulmonary Disease Without Exacerbation (HCC) documented in this encounter Results * DX Chest AP or PA and Lateral 2 Views (10/11/2024 11:53 AM CLINICAL PROGRAM CONSULTANT) Anatomical Region Laterality Modality Chest, Thoracic RST LOS, Tho racic ARZ LOS, Thoracic FLA LOS N/A Digital Radiography Impressions 10/11/2024 12:07 PM CLINICAL PROGRAM CONSULTANT No focal consolidation or pleural effusion size. PFO closure device. Atherosclerotic vascular disease. Indeterminate nodular opacity of the right upper lung, not significantly changed in size from prior CT when accounting for differences in modality. Postoperative changes wedge resection of the right upper lung. Narrative 10/11/2024 12:07 PM CLINICAL PROGRAM CONSULTANT EXAM: DX CHEST AP OR PA AND [...] wedge resection of the right upper lung. us Kati Colin M.D. IM DIAGNOSTIC IMAGING [facility] Final Result documented in this encounter Visit Diagnoses Diagnosis Chronic Obstructive Pulmonary Disease Without Exacerbation (HCC) documented in this encounter Care Teams Music Mixer Relationship Specialty Start Date End Date Kati Colin M.D. [address] [place] [phone] PCP - General Family Medicine 03/09/24 documented as of this encounter
--- OUTSIDE RECORDS SUMMARY | 2024-10-30 11:31 | XMS_ITS | Encounter Summary ---
Author Organization [facility] Address [address] [place] [address] Care Team Providers Care Insurance Job Titles Name Role Phone Kati Colin M.D. Primary Care Provider [phone] Encounter Details Date Type Department Care Team (Late st Contact Info) Description 10/05/2024 Orders Only [facility] Kati Colin M.D. [address] [place] [phone] Diabetes Mellitus Type 2 (HCC) Social History Tobacco Use Types Packs/Day Years Used Date Smoking Tobacco: Former Cigarettes Alcohol Use Standard Drinks/Week Comments Yes 2 (1 standard drink = 0.6 oz pur e alcohol) [facility] Utilities Answer Date Recorded In the past 12 months has [employer], gas, oil, or water company threatened [...] your living situation today? I have a [facility] place to live 06/28/2024 Comments No Sex and Gender Information Value Date Recorded Sex Assigned at Female 05/07/2024 7:38 AM CDT Legal Sex Female 3:35 PM EQUIPMENT ASSOCIATE Gender Identity Female 05/07/2024 7:38 AM CDT Sexual Orientation Straight 05/07/2024 7: 38 AM CDT documented as of this encounter Plan of Treatment Upcoming Encounters Date Type Department Care Team (Latest Contact Info) Description 11/01/2024 9:50 AM EQUIPMENT ASSOCIATE Appointment Department of Laboratory Medicine in [address] [phone] Kati Colin M.D. [address] [place] [phone] 11/01/2024 10:10 AM EQUIPMENT ASSOCIATE Appointment Department of Laboratory Medicine in [address] [phone] Kati Colin M.D. [address] [place] [phone] 11/03/2024 3:30 PM EQUIPMENT ASSOCIATE Comprehensive Visit Department of Ophthalmology in [place], [place] [address] [place] [phone] Hipolito Lynch M.D. [address] [phone] 12/09/2024 9:30 AM CDT Appointment Department of Cardiovascular Diseases in [place], [place] [address] [place] [phone] Kati Colin M.D. [address] [place] [phone] Discharge Disposition: Home or Self Care 12/22/2024 10:30 AM CDT Clinical Communication Virtual Review in [address] [phone] 12/23/2024 10:00 AM CDT Diagnostic Division of Pulmonary Medicine in [address] [phone] Margarita Martinez APRN, C.N.P., D.N.P. [address] [place] [phone] 12/23/2024 10:30 AM CDT Diagnostic Division of Pulmonary Medicine in [address] [phone] Margarita Martinez APRN, C.N.P., D.N.P. [address] [place] [phone] 12/23/2024 11:30 AM CDT Office Visit Division of Pulmonary Medicine in [address] [phone] Margarita Martinez, LOREN, C.N.P., D.N.P. [address] [place] [address] Scheduled Orders Name Type Priority Associated Diagnoses Orde r Schedule Albumin, Random, Urine Lab Routine Diabetes Mellitus Type 2 (HCC) Expected: 10/19/2024, Expires: 04/03/2025 Hemoglobin A1c Lab Routine Diabetes Mellitus Type 2 (HCC) Expected: 10/19/2024, Expires: 04/03/2025 documented as of this encounter Visit Diagnoses Diagnosis Diabetes Mellitus Type 2 (HCC) documented in this encounter Care Teams Insurance Job Titles Relationship Specialty Start Date End Date Kati Colin M.D. [address] [place] [phone] PCP - General Family Medicine 03/09/24 documented as of this encounter
--- OUTSIDE RECORDS SUMMARY | 2024-10-30 11:31 | XMS_ITS | Encounter Summary ---
Author Organization [facility] Address [address] [place] [address] Care Team Providers Care Outreach Analyst Name Role Phone Kati Colin M.D. Primary Care Provider Reason for Referral * Outpatient (Routine) - Authorized Specialty Diagnoses / Procedures Referred By Contac t Referred To Contact Kati Colin M.D. [address] [place] [address] Phone: tel: fax: [facility] Region Referral ID Status Reason Start Date Expiration Date V isits Requested Visits Authorized [id number] Authorized 09/10/2024 03/12/2026 1 1 UM METALIZING SUPERVISOR Reason for Visit * Reason Onset Date Comments Quality 09/08/2024 D5; HTN, Colorec aaron Encounter Details Date Type Department Care Team (Latest Contact Info) Description 09/08/2024 Clinical Communication Department of Family Medicine, [facility], in [place], [place] [address] [place] [phone] Susie Cheng, R.N. Quality (D5; HTN, Colorectal) Social History Tobacco Use Types Packs/Day Years Used Date Smoking Tobacco: Former Cigarettes Alcohol Use Standard Drinks/Week Comments Yes 2 (1 standard drink = 0.6 oz pur e alcohol) [facility] Utilities Answer Date Recorded In [...] your living situation today? I have a [facility] place to live 06/28/2024 Comments No Sex and Gender Information Value Date Recorded Sex Assigned at Female 05/07/2024 7:38 AM CDT Legal Sex Female 3:35 PM VACUUM METALIZING SUPERVISOR Gender Identity Female 05/07/2024 7:38 AM CDT Sexual Orientation Straight 05/07/2024 7: 38 AM CDT documented as of this encounter Plan of Treatment Upcoming Encounters Date Type Department Care Team (Latest Contact Info) Description 11/01/2024 9:50 AM VACUUM METALIZING SUPERVISOR Appointment Department of Laboratory Medicine in [address] [phone] Kati Colin M.D. [address] [place] [phone] 11/01/2024 10:10 AM VACUUM METALIZING SUPERVISOR Appointment Department of Laboratory Medicine in [address] [phone] Kati Colin M.D. [address] [place] [phone] 11/03/2024 3:30 PM VACUUM METALIZING SUPERVISOR Comprehensive Visit Department of Ophthalmology in [place], [place] [address] [phone] Hipolito Lynch M.D. [address] [place] [phone] 12/09/2024 9:30 AM CDT Appointment Department of Cardiovascular Diseases in [place], [place] [address] [phone] Kati Colin M.D. [address] [place] [phone] Discharge Disposition: Home or Self Care 12/22/2024 10:30 AM CDT Clinical Communication Virtual Review in [place], [place] [address] [place] [address] 12/23/2024 10:00 AM CDT Diagnostic Division of Pulmonary Medicine in [address] [phone] Margarita Martinez, LOREN, C.N.P., D.N.P. [address] [place] [phone] 12/23/2024 10:30 AM CDT Diagnostic Division of Pulmonary Medicine in [place], [place] [address] [place] [address] Margarita Martinez APRN, C.N.P., D.N.P. [address] [place] [phone] 12/23/2024 11:30 AM CDT Office Visit Division of Pulmonary Medicine in [place], [place] [address] [place] [address] Margairta Martinez APRN, C.N.P., D.N.P. [address] [place] [phone] Scheduled Referrals Name Type Priority Associated Diagnoses Orde r Schedule Primary Care nurse visit (clinic) - [facility] Region; BP check; BP check only (SMOG TECHNICIAN) Outpatient Referral Routine Expected: 09/17/2024, Expires: 12/09/2025 documented as of this encounter Visit Diagnoses Not on filedocumented in this encounter Care Teams Outreach Analyst Relationship Specialty Start Date End Date Kati Colin M.D. [address] [place] [phone] PCP - General Family Medicine 03/09/24 documented as of this encounter
--- OUTSIDE RECORDS SUMMARY | 2024-10-30 11:31 | XMS_ITS | Continuity of Care Document ---
Author Organization [place] - [facility] [place] Main Office Address [address] [place] [address] Assessment Encounter Date Assessment Date Assessment LastModified by Organization Details LastModified Time 09/23/2024 09/23/2024 I told the patient to apply triple antibiotic ointment, Vaseline, or Bacitracin to the surgical site to keep it well hydrated along the incision. I advised the patient to continue wearing supportive shoes to protect the area. I scheduled a follow-up appointment in two to three weeks for additional x-rays to monitor the fusion progress simona Not available 09/23/2024 10:36:36 Plan of Treatment Reminders Order Date Submit Date Provider Last Modified By Organization Details Last Modified Time Details Appointments POST OP 15 025 02:00PM RUTHANN LEÓN DPM Not available Not available Not available Lab None record ed. Referral None record ed. Procedures None record ed. Surgeries None record ed. Imaging XR, foot, 3 or more view 024 09/23/20 24 [facility] Office, [address] [place] [address], [phone], 10/07/2024 04:08:39 Medication Orders None record ed. Patient TargetsNo targets recorded. Patient InstructionsNo instructions recorded. Reason for Referral None Reported. Results Created Date Observation Date Name Description Value Unit Range Abnormal Flag Note LastModifiedBy Organization Detail LastModifiedTime 09/09/20 24 XR, foot, 3 or more view No observ ation record ed. simona [place] [facility] [address] [place] [address], [phone], 09/09/2024 13:19:37 10/13/19 25 XR, foot, 3 or more view No observ ation record ed. simona [place] [facility] [address], [place], [phone], 10/13/2024 10:55:28 Result Notes None recorded. Problems Name Problem SNOMED Code Status Onset Date Resolution Date Notes Provider Name and Address Organization Details Recorded Time Diabetic care Active [address] Correa 07/05/24 CALEB Salazar - [facility] 10:14:17 Problem Notes None recorded. Medical Equipment None Reported. [...] Not Available No t Available amoxicillin 875 mg-potassiu m clavulanate 125 mg tablet TAKE 1 TABLET [...] SNOMED-CT Code Diagnosis ICD10 Code Diagnosis Note RUTHANN LEÓN DPM [place] [facility] [address] [place] [phone] 08/25/2024 14:37:36 08/30/2024 16:28:34 Peripheral neuropathy due to type 2 diabetes mellitus 3014196354 107 E11.42 Ingrowing nail 637745998 L60.0 Onychomycosis 834263741 B35.1 Pain of to e of left foot 3770150140 92111 M79.675 Pain of to e of right foot 8110309951 03557 M79.674 Acquired h ammer toe of right foot 7021068004 480582 M20.41 Peripheral vascular disease 189082148 I73.9 Nail dystr ophy due to trauma 138675952 L60.3 RUTHANN LEÓN DPM [place] [facility] [address] [place] [phone] 09/01/2024 15:02:05 09/03/2024 09:50:01 Peripheral neuropathy due to type 2 diabetes mellitus 2295085200 107 E11.42 Ingrowing nail 299745226 L60.0 Onychomycosis 455322124 B35.1 Pain of to e of left foot 4263669460 34454 M79.675 Pain of to e of right foot 6365983443 10883 M79.674 Acquired h ammer toe of right foot 2947857531 948026 M20.41 Peripheral vascular disease 135448074 I73.9 Nail dystr ophy due to trauma 580296347 L60.3 76211 RUTHANN LEÓN DPM [place] [facility] [address] [facility] [address] [place] [address] 09/08/2024 15:24:18 09/09/2024 15:07:21 Peripheral neuropathy due to type 2 diabetes mellitus 8280052339 107 E11.42 Ingrowing nail 448687739 L60.0 Onychomycosis 903864668 B35.1 Pain of to e of left foot 1922968456 84191 M79.675 Pain of to e of right foot 4927732677 65065 M79.674 Acquired h ammer toe of right foot 4958108856 453990 M20.41 Peripheral vascular disease 226137789 I73.9 Nail dystr ophy due to trauma 257664635 L60.3 [address]11 RUTHANN LEÓN DPM [place] [facility] [address] [place] [phone] 09/23/2024 09:57:32 09/26/2024 15:23:22 Peripheral neuropathy due to type 2 diabetes mellitus 6628832915 107 E11.42 Ingrowing nail 996257141 L60.0 Onychomycosis 164060756 B35.1 Pain of to e of left foot 0024778926 26290 M79.675 Pain of to e of right foot 3534602165 03014 M79.674 Acquired h ammer toe of right foot 2716796005 775643 M20.41 Peripheral vascular disease 835172142 I73.9 Nail dystr ophy due to trauma 372774997 L60.3 Health Concerns Section Related Observation LastModified by Organization Detai ls LastModified Time None Recorded Concern Status LastModified by Organization Details LastModified Time None Recorded Payers Encounter Date Sequence Insurance Name Policy Number Policy Fisher Covered Member ID Fisher Member ID Guarantor Name 09/23/2024 2 [employer] (MEDICARE SUPPLEMENT) Luz Richardson [id number] Luz Richardson 09/23/2024 1 MEDICARE [place]: [employer] [facility] Luz Richardson [id number] Luz Richardson Notes Date Note Type Note Provider Name and Address Organization Details Recorded Time 09/23/2024 text/html SURGICAL PROCEDU RE: L hallux [...] lotion to the area. RUTHANN LEÓN DPM [address] [place], [phone], [facility] 09/23/2024 10:36:44 OBGyn Episode No OBEpisode recorded.
--- OUTSIDE RECORDS SUMMARY | 2024-10-30 11:31 | XMS_ITS | Clinical Summary ---
Author Organization [facility] Address [address] [place] [id number] Care Team Providers Care Certified Maintenance Welder Name Role Phone Kati Colin M.D. Primary Care Provider [phone] Source Comments Patient records contain information from all sites at [facility]. For routine questions regarding patient records, call [phone] during business hours, M-F 8:00 AM - 5:00 PM Central Time. Record requests for emergency care only can be directed to [phone] at any time.[facility] Allergies Active Allergy Reactions Criticality Noted Date Comments Doxycycline Diarrhea 01/14/2024 Hydrocodone Itching,Rash Low 05/30/2010 Oxycodone-Acetaminophen Itching,Rash Low 05/30/2010 Medications * This document contains information received from the source organization and may not represent a complete record from that organization. diclofenac sodium (Voltaren) 1 % gel Place 2 g on the skin. PRN has not started yet 09/24/20 23 Active medical cannabis capsule Take 1 capsule by mouth. PRN - gummies or chocolate bar Active vitamins A,C,B-lwdw-lanxj r (PreserVision AREDS) 7,160 Units-113 mg-100 Units per tablet Take 1 tablet by mouth 2 (two) times a day. Active alendronate (Fosamax) 10 mg tablet Take 10 mg by mouth once a week. 10/09/19 24 Active potassium chloride 10 mEq ER tablet Take 1 tablet by mouth daily. 02/11/20 24 Active rosuvastatin (Crestor) 40 mg tablet Take 1 tablet by mouth at bedtime. 03/12/20 24 Active valsartan (Diovan) 160 mg tablet Take 80 mg by mouth daily. 12/25/19 24 Active cetirizine (ZyrTEC) 10 mg tablet Take 10 mg by mouth every morning. Active cholecalciferol (Vitamin D3) 125 mcg (5,000 Unit) tablet Take 10,000 Units by mouth daily. Active dapagliflozin propanediol (Farxiga) 5 mg tablet Take 5 mg by mouth daily. Active ammonium lactate (Lac-Hydrin) 12 % lotion Apply 1 Application topically 2 (two) times a day. 02/17/20 24 Active DME Oxygen 3 L by continuous inhalation route daily. Active B complex-vitamin (Super B-50) capsule Take 1 capsule by mouth daily. Active ferrous sulfate 324 mg (65 mg iron) DR tablet Take 65 mg of iron by mouth daily. Active multivitamin tablet Take 1 tablet by mouth daily. Active glipiZIDE (GlucotroL XL) 2.5 mg 24 hr tablet Take 1 tablet (2.5 mg total) by mouth daily with breakfast. 90 tablet 3 03/18/20 24 Active acetaminophen (TylenoL 8 Hr) 650 mg ER tablet Take 1,300 mg by mouth every 8 (eight) hours. Active DME OxygenIndication s:Chronic Obstructive Pulmonary Disease Without Exacerbation (HCC) DME Order - for details see Order Report 1 each 05/11/20 24 Active montelukast (Singulair) 10 mg tablet take 1 tablet by mouth daily 90 tablet 3 06/15/20 24 Active albuterol 90 mcg/actuation inhaler Inhale 2 puffs every 6 (six) hours as needed for wheezing. 18 g 3 06/15/20 24 Active amitriptyline 2 % gabapentin 5 % ketamine 5 % in lipoderm Apply topically 2 (two) times a day. Apply to feet twice a day. 60 g 1 06/24/20 24 Active Additional Information Patient not taking.Reported on 10/11/2024 furosemide (Lasix) 20 mg tablet Take 1 tablet (20 mg total) by mouth daily. M, W, F 90 tablet 3 07/05/20 24 Active revefenacin (Yupelri) 175 mcg/3 mL solution for nebulization nebulizer solutionIndicati ons:Chronic Obstructive Pulmonary Disease Without Exacerbation (HCC) Inhale 3 mL (0.175 mg total) by nebulization daily. 270 mL 3 07/14/20 24 Active formoterol (Perforomist) 20 mcg/2 mL nebulizer solutionIndicati ons:Chronic Obstructive Pulmonary Disease Without Exacerbation (HCC) Inhale 2 mL (20 mcg total) by nebulization 2 (two) times a day. 360 mL 3 07/14/20 24 Active azithromycin (Zithromax) 500 mg tablet 500 mg daily on M, W, F 36 tablet 3 08/12/20 24 Active budesonide (Pulmicort) 0.5 mg/2 mL nebulizer solutionIndicati ons:Chronic Obstructive Pulmonary Disease Without Exacerbation (HCC) Inhale 2 mL (0.5 mg total) by nebulization 3 (three) times a day. Rinse mouth with water after use to reduce aftertaste and incidence of candidiasis. Do not swallow. 540 mL 3 09/30/19 25 Active dextromethorphan -guaiFENesin (Robitussin-DM) 10-100 mg/5 mL syrup Take 5 mL by mouth every 4 (four) hours as needed for cough. 235 mL 3 10/11/19 25 Active predniSONE (Deltasone) 20 mg tablet Take 1 tablet (20 mg total) by mouth daily for 5 days. 5 tablet 10/11/19 25 025 Discontinu ed(Reorder ) dextromethorphan -guaiFENesin (Robitussin-DM) 10-100 mg/5 mL syrup Take 5 mL by mouth every 4 (four) hours as needed for cough. 235 mL 3 10/11/19 25 025 Discontinu ed(Reorder ) predniSONE (Deltasone) 20 mg tablet Take 1 tablet (20 mg total) by mouth daily for 5 days. 5 tablet 10/11/19 25 025 Active Problems Patient Care Coordination No te Formatting of this note migh t be different from the original. [place] completed 07/05/24 for children Deena and Sakina. These are valid for life unless revoked. Problem Noted Date Diagnosed Date Failure Heart 10/11/2024 Chronic Respiratory Failure With Hypoxia Chronic Obstructive Pulmonary Disease Without Ex acerbation 08/30/2024 Diabetes Mellitus Type 2 08/30/2024 Hyperlipidemia 08/30/2024 Osteoporosis 08/30/2024 Endarterectomy Carotid Status Post 08/30/2024 Dysfunction Diastolic 08/30/2024 Hypertension Essential Primary 08/30/2024 Closure Patent Foramen Ovale Status Post Morbid Obesity Body Mass Index 40.0-44.9 Adult 1 10/31/2023 Neuropathy Peripheral 06/24/2024 Encounters * This document contains information received from the source organization and may not represent a complete record from that organization. Date Type Department Care Team Description 10/30/2024 Nurse Triage Department of [facility], in [address] [address] Chichi Noel, R.N. Chest Pain 10/29/2024 Nurse Triage Department of [facility], in [address] [address] Ellie Palencia, RGuilleN. COPD 10/29/2024 Patient Self-Triage [facility] Symptom Floor Clerk, Provider 10/12/2024 Orders Only Department of [facility], in [address] [address] Kati Colin M.D. Screening Cancer Colon 10/11/2024 11:43 AM WATER SAFETY INSTRUCTOR - 10/11/2024 11:59 PM WATER SAFETY INSTRUCTOR Hospital Encounter Department of Radiology in [address] [address] Kati Colin M.D. Chronic Obstructive Pulmonary Disease Without Exacerbation (HCC) Discharge Disposition: Home or Self Care 10/11/2024 11:15 AM WATER SAFETY INSTRUCTOR Nurse Only Department of [facility], in [address] [address] Gracy Barrientos, L.P.N. Nurse Visit (Home machine B/P check.) 10/11/2024 11:00 AM WATER SAFETY INSTRUCTOR Office Visit Department of [facility], in [address] [address] Kati Colin M.D. Chronic Obstructive Pulmonary Disease Without Exacerbation (HCC) (Primary Dx); Failure Heart (HCC); Chronic Respiratory Failure With Hypoxia (HCC); Morbid Obesity Body Mass Index 40.0-44.9 Adult (HCC); Diabetes Mellitus Type 2 (HCC); Screening Cancer Colon; Cough Unspecified Type 10/11/2024 Clinical Communication Department of [facility], in [address] [address] Kati Colin M.D. Results 10/11/2024 Refill Department of [facility], in [address] [address] Kati Colin M.D. Med Refill 10/06/2024 Patient Self-Triage [facility] Symptom Floor Clerk, Provider 10/05/2024 Orders Only [facility] Kati Colin M.D. Diabetes Mellitus Type 2 (HCC) 09/30/2024 Refill Division of Pulmonary Medicine in [place], [place] [address] [place] [address] Margarita Martinez APRN, C.N.P., D.N.P. Med Refill 09/08/20[address] Clinical [address] of [facility], [facility], in [place], [place] [address] [place] [phone] Susie Cheng R.N. Quality (D5; HTN, Colorectal) 08/30/2024 10:45 AM WATER SAFETY INSTRUCTOR Comprehensive Visit Department of Sleep Medicine in [place], [place] [address] [place] [address] Sallie White APRN, C.N.P., D.N.P., M.S.N. Apnea Sleep Obstructive; Chronic Respiratory Failure With Hypoxia (HCC); Chronic Obstructive Pulmonary Disease Without Exacerbation (HCC) 08/25/2024 11:30 AM WATER SAFETY INSTRUCTOR Virtual Visit Division of Pulmonary Medicine in [place], [place] [address] [place] [address] Margarita Martinez, LOREN, C.N.P., D.N.P. Chronic Obstructive Pulmonary Disease Without Exacerbation (HCC) (Primary Dx); Smoking Tobacco Use Personal History; Apnea Sleep Obstructive; Nodule Pulmonary; Morbid Obesity Body Mass Index 40.0-44.9 Adult (HCC) 08/10/[address] of [facility], [facility], in [address] [address] Kati Colin M.D. Med Question (Azithromycin 500 mg) 08/06/2024 10:40 AM WATER SAFETY INSTRUCTOR - 08/06/2024 11:59 PM WATER SAFETY INSTRUCTOR Hospital Encounter Department of Laboratory Medicine in [address] [phone] Kati Colin M.D. Preoperative Exam Discharge Disposition: Home or Self Care 08/02/2024 9:00 AM WATER SAFETY INSTRUCTOR Office Visit Department of [facility], [facility], in [address] [address] Kati Colin M.D. Preoperative Exam (Primary Dx); Pain Low Back Unspecified from Last 3 Months Immunizations Immunization Administration Dates Next Due DTaP, Unspecified 04/12/2019 Influenza TIV (IM) 07/15/2023,09/13/2022 Influenza, Injectable, Quadrivalent 06/29/2021 PCV20 06/29/2020 RESPIRATORY SYNCYTIAL VIRUS (RSV), UNSPECIFIED 07/25/2023 SARS-COV-2 (COVID-19) - MODE RNA (12 YEARS AND OLDER) Fall Seasonal 07/05/2024 SARS-COV-2 (COVID-19) - PFIZ ER (Discontinued)(12 years or older) 06/29/2021,12/22/2020,11/30/2020 influenza trivalent high dose (HD)(PF) 4 Family History Medical History Relation Name Comments Alcohol abuse Brother Vince Anxiety disorder Brother Vince Diabetes Brother Vince Drug abuse Brother Vince Hyperlipidemia Brother Vince Hypertension Brother Vince COPD Daughter 1 Hyperlipidemia Daughter 1 PCOS - Polycystic ovarian syndrome Daughter 1 PCOS - Polycystic ovarian syndrome Daughter 2 Alcohol abuse Father Edservando Diabetes Father Edward Lung cancer Maternal Grandfather Chad Arthritis Maternal Grandmother Stacy Hypertension Maternal Grandmother Stacy Anxiety disorder Mother Martha Arthritis Mother Martha Asthma Mother Martha Coronary artery disease Mother Martha of pulmonary embolism Heart attack Mother Martha Hyperlipidemia Mother Martha Hypertension Mother Martha Migraines Mother Martha Pulmonary embolism Mother Martha Stented coronary artery Mother Martha Drug abuse Sister 1 Ludmila Drug addiction Sister 2 knee problems Son 1 No Known Problems Son 2 Autoimmune disorder Son 3 Relation Name Status Comments Brother Vince Daughter 1 Alive Daughter 2 Alive Father Edward Maternal Grandfather Chad Alive Maternal Grandmother Stacy Alive Mother Martha Sister 1 Ludmila Alive Sister 2 Alive Son 1 Alive Son 2 Alive Son 3 Alive Social History Tobacco Use Types Packs/Day Years Used Date Smoking Tobacco: Former Cigarettes 0.8 88.9 0 09/29/1969 - 08/23/2018 Smokeless Tobacco: Never Comments:Quit smoking severa l times for several months Alcohol Use Standard Drinks/Week Comments Yes 4 (1 standard drink = 0.6 oz pur e alcohol) [facility] Utilities Answer Date Recorded In the past 12 months has [employer], gas, oil, or water [employer] threatened to shut off services in your [...] your living situation today? I have a [facility] place to live 06/28/2024 Comments No Sex and Gender Information Value Date Recorded Sex Assigned at Female 05/07/2024 7:38 AM CDT Legal Sex Female 3:35 PM WATER SAFETY INSTRUCTOR Gender Identity Female 05/07/2024 7:38 AM CDT Sexual Orientation Straight 05/07/2024 7: 38 AM CDT Last Filed Vital Signs Vital Sign Reading Time Taken Comments Blood Pressure 110/70 10/11/2024 12:02 PM WATER SAFETY INSTRUCTOR Pulse 70 10/11/2024 12:02 PM WATER SAFETY INSTRUCTOR Temperature 35.3 C (95.5 F) 10/11/2024 10:45 AM WATER SAFETY INSTRUCTOR Respiratory Rate 20 10/11/2024 12:02 PM WATER SAFETY INSTRUCTOR Oxygen Saturation 95% 10/11/2024 10:45 AM WATER SAFETY INSTRUCTOR Inhaled Oxygen Concentration - - Weight 115 kg (253 lb 6.7 oz) 10/11/2024 10:45 A M WATER SAFETY INSTRUCTOR Height 166 cm (5' 5.35) 08/02/2024 8:58 AM WATER SAFETY INSTRUCTOR Body Mass Index 41.72 08/02/2024 8:58 AM WATER SAFETY INSTRUCTOR Plan of Treatment Upcoming Encounters Date Type Department Care Team (Latest Contact Info) Description 11/01/2024 9:50 AM WATER SAFETY INSTRUCTOR Appointment Department of Laboratory Medicine in [address] [phone] Kati Colin M.D. [address] [place] [phone] 11/01/2024 10:10 AM WATER SAFETY INSTRUCTOR Appointment Department of Laboratory Medicine in [place], [place] [address] [place] [address] Kati Colin M.D. [address] [place] [phone] 11/03/2024 3:30 PM WATER SAFETY INSTRUCTOR Comprehensive Visit Department of Ophthalmology in [place], [place] [address] [phone] Hipolito Lynch M.D. [address] [phone] 12/09/2024 9:30 AM CDT Appointment Department of Cardiovascular Diseases in [place], [place] [address] [phone] Kati Colin M.D. [address] [place] [address] Discharge Disposition: Home or Self Care 12/22/2024 10:30 AM CDT Clinical Communication Virtual Review in [place], [place] [address] [place] [address] 12/23/2024 10:00 AM CDT Diagnostic Division of Pulmonary Medicine in [address] [phone] Margarita Martinez APRN, C.N.P., D.N.P. [address] [place] [phone] 12/23/2024 10:30 AM CDT Diagnostic Division of Pulmonary Medicine in [address] [phone] Margarita Martinez APRN, C.N.P., D.N.P. [address] [place] [phone] 12/23/2024 11:30 AM CDT Office Visit Division of Pulmonary Medicine in [place], [place] [address] [place] [phone] Margarita Martinez APRN, C.NGustavo., D.N.P. [address] [place] [phone] Health Maintenance Due Date Last Done Comments CT Colonography 1956 Cologuard 1956 Colonoscopy 1956 Colorectal Cancer Surveillance 1956 Dilated Eye Exam 1956 Hepatitis C Screening 1956 Urine Albumin 1956 Zoster Vaccines (1 of 2) 2006 Hepatitis B Vaccines (1 of 3 - Risk 3-dose series) 2016 Hemoglobin A1C 12/16/2024 06/18/2024, 11/27, 07/03/2023, Additional history exists COVID-19 Vaccine ( season) 2025 07/05/2024, 06/29/2021, 12/22/2020, Additional history exists Lung Cancer Screening 04/27/2025 04/27/2024 , 04/27/2024, 04/27/2024, Additional history exists Creatinine Level (Kidney Function Test) 06/10/2025 06/10/2024, 04/23/2024, 01/05/2024, Additional history exists Potassium Level 06/10/2025 06/10/2024, 0 04/2024, 12/09/2023, Additional history exists Sodium Level 06/10/2025 06/10/2024, 0 04/2024, 12/09/2023, Additional history exists Visit: Medicare Annual Wellness 07/06/2025 07/05/2024 Mammogram 07/15/2025 07/15/2024, 04/2024, 10/11/2020, Additional history exists Diabetic Office Visit with Foot Exam 10/11/2025 10/11/2024 Office Visit for Blood Pressure Check / Re-check 10/11/2025 10/11/2024 Visit: Chronic Disease, age 18+ 10/11/2025 10/11/2024 Lipid (Cholesterol) Screening 12/08/2028 12/09/2023, 07/03/2023, 12/26/2022, Additional history exists DTaP,Tdap,and Td Vaccines (2 - Tdap) 04/12/2029 04/12/2019 Pneumococcal vaccine (50+ years) Completed 06/29/2020 RSV vaccine - (32-36 weeks) or 60+ years Completed 07/25/2023 Bone Density Scan (Osteoporosis Screen) Discontinued 10/08/2023 Influenza Vaccine Completed 07/05/2024, , 09/13/2022, Additional history exists Depression Screening (Annual PHQ-2) Completed 10/11/2024, 10/09/2024 Fall Risk Screen (Annual) Completed 10/11/2024 IPV Vaccines Aged Out No longer eligi ble based on patient's age to complete this topic Medical Devices Implanted Type Area Aerotriangulation Specialist Device Identifier Shelf Expiration Date Model / Serial / Lot Hardware E.G. Pins/Screws/R ods Hardware e.g. pins/screws/ rods Left: Hip Hardware E.G. Pins/Screws/R ods Hardware e.g. pins/screws/ rods Bilateral: Spine Lumbar Hardware E.G. Pins/Screws/R ods Hardware e.g. pins/screws/ rods Left: Heart Hardware E.G. Pins/Screws/R ods Hardware e.g. 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 Ocular Lens Ocular Lens Bilateral: Eye Procedures Procedure Name Priority Date/Time Associated Diagnosis Comments DX CHEST AP OR PA AND LATERAL 2 VIEWS RAD - Routine (most inpatients and all outpatients) 10/11/2024 11:53 AM WATER SAFETY INSTRUCTOR Chronic Obstructive Pulmonary Disease Without Exacerbation (HCC) ECG Routine 08/06/2024 11:04 AM WATER SAFETY INSTRUCTOR Preoperative Exam BI BREAST SCREENING BILATERAL WITH TOMOSYNTHESIS RAD - Routine (most inpatients and all outpatients) 07/15/2024 10:05 AM CDT Well Adult Examination Normal HEMOGLOBIN A1C, B Routine 06/18/2024 7:4 4 AM CDT Diabetes Mellitus Type 2 (HCC) CT CHEST WITHOUT IV CONTRAST RAD - Routine (most inpatients and all outpatients) 04/27/2024 9:00 AM CDT Chronic Obstructive Pulmonary Disease Without Exacerbation (HCC) CREATININE WITH EGFR, S/P Routine 04/23/2024 8:35 AM CDT Chronic Obstructive Pulmonary Disease Without Exacerbation (HCC) from Last 3 Months or Most Recently Relevant to Health Maintenance Results * DX Chest AP or PA and Lateral 2 Views (10/11/2024 11:53 AM WATER SAFETY INSTRUCTOR) Anatomical Region Laterality Modality Chest, Thoracic RST LOS, Tho racic ARZ LOS, Thoracic FLA LOS N/A Digital Radiography Impressions 10/11/2024 12:07 PM WATER SAFETY INSTRUCTOR No focal consolidation or pleural effusion size. PFO closure device. Atherosclerotic vascular disease. Indeterminate nodular opacity of the right upper lung, not significantly changed in size from prior CT when accounting for differences in modality. Postoperative changes wedge resection of the right upper lung. Narrative 10/11/2024 12:07 PM WATER SAFETY INSTRUCTOR EXAM: DX CHEST AP OR PA AND [...] right upper lung. us Kati Colin M.D. [facility] Final Result * ECG 12 Lead (08/06/2024 11:04 AM WATER SAFETY INSTRUCTOR) Ventricular Rate ECG/Min 69 BPM MUSE NM Interval 172 ms MUSE QRSD Interval 82 ms MUSE QT Interval 426 ms MUSE QTC Interval 456 ms MUSE P Ira 69 degrees MUSE R Ira 17 degrees MUSE T Wave Ira 69 degrees MUSE 08/06/2024 11:0 4 AM WATER SAFETY INSTRUCTOR 08/10/2024 12:42 PM WATER SAFETY INSTRUCTOR Impressions MUSE - 08/10/2024 12:42 PM WATER SAFETY INSTRUCTOR Normal sinus rhythm Normal ECG No previous ECGs available Reviewed by NIC Soliman Narrative Procedure Note Abdirashid Wade M.D. - 08/10/2024 IMPRESSION: Normal sinus rhythm Normal ECG No previous ECGs available Reviewed by NIC Soliman us Kati Colin M.D. ECG ORDERABLES Final Result MUSE NA * BI Breast Screening Bilateral with Tomosynthesis (07/15/2024 10:05 AM CDT) Anatomical Region Laterality Modality Breast, Breast Imaging RST L OS, Breast Imaging ARZ LOS, Breast Imaging FLA LOS Bilateral Mammography Impressions 07/16/2024 3:50 PM CDT Negative. RECOMMENDATION: Annual Screening Mammogram ASSESSMENT: BI-RADS: 1: Negative. Narrative 07/16/2024 3:50 PM CDT EXAM: BI BREAST SCREENING BILATERAL WITH TOMOSYNTHESIS Current study was evaluated with a Computer Aided Detection (CAD) system. INDICATION: Screening mammogram. COMPARISON: Prior exam(s) were available and reviewed for comparison. DENSITY: b. There are scattered areas of fibroglandular density. FINDINGS: No mammographic findings of malignancy. Procedure Note Tito Meade M.D. - 07/16/2024 EXAM: BI BREAST SCREENING BILATERAL WITH TOMOSYNTHESIS Current study was evaluated with a Computer Aided Detection (CAD) system. INDICATION: Screening mammogram. COMPARISON: Prior exam(s) were available and reviewed for comparison. DENSITY: b. There are scattered areas of fibroglandular density. FINDINGS: No mammographic findings of malignancy. IMPRESSION: Negative. RECOMMENDATION: Annual Screening Mammogram ASSESSMENT: BI-RADS: 1: Negative. us Kati Colin M.D. IMG BI PROCEDURES Final Resu lt * (ABNORMAL) Hemoglobin A1c (06/18/2024 7:44 AM CDT) Hemoglobin A1c, B 6.4(H) 4.2 - 5.6 % 06/18/2024 1:36 PM CDT OW Comment: Hemoglobin A1c values of 5.7-6.4 percent indicate an increased risk for developing diabetes mellitus. In diabetic patients, HbA1c goals should be discussed with healthcare provider. Blood (Blood, Venous) 06/18/2024 7:44 AM CDT 06/18/2024 1:01 PM CDT us Kati Colin M.D. LAB BLOOD ADD-ON Final Resul t [facility] [address] [place] [address], [place] [facility] in [place] [address] [place] [address] * CT Chest without IV Contrast (04/27/2024 9:00 AM CDT) Anatomical Region Laterality Modality Chest, Thoracic RST LOS, Tho racic ARZ LOS, Thoracic FLA LOS N/A Computed Tomography Impressions 04/27/2024 9:34 AM CDT 1. 2.2 cm lobulated solid right upper lobe pulmonary nodule with punctate calcifications. While technically indeterminate, this is favored to represent a benign hamartoma. However, given the patient's smoking history and history of multiple malignancies, recommend comparison with prior imaging studies to document stability as this appears new from most recent comparison chest radiograph 03/29/2002. If no additional prior imaging is available, attention on follow-up recommended to document stability such as with [address] 2. 4 mm left lower lobe pulmonary nodule is indeterminate. Recommend continued follow-up to document resolution. 3. Post surgical changes of right upper lobe wedge resection. Groundglass attenuation within the posterior right upper lobe may be posttreatment related, less likely infectious or inflammatory. Attention on follow-up recommended. 4. Prominent L1 superior endplate Schmorl's node with associated age- indeterminate compression deformity. Recommend correlation with point tenderness. Narrative 04/27/2024 9:34 AM CDT EXAM: CT CHEST WITHOUT IV CONTRAST COMPARISON: None FINDINGS: 2.2 cm x 2.1 cm lobulated solid right upper lobe pulmonary nodule with punctate calcifications. No definite macroscopic fat. Diffuse centrilobular emphysema. Postsurgical changes of right upper lobe wedge resection. Groundglass attenuation noted within the posterior right upper lobe. No pleural effusion or pneumothorax. 4 mm left lower lobe pulmonary nodule on series 4 image 343. Moderate left lower lobe atelectasis. Calcified atherosclerosis throughout the aorta and major branches. PFO occlusion device in place along the interatrial septum. Calcified atherosclerosis throughout the coronary arteries. Normal heart size without pericardial effusion. Imaged portions of the upper abdomen demonstrate no acute findings. Bone windows demonstrate chronic right-sided rib fractures, perhaps related to prior thoracotomy. Prominent L1 superior endplate Schmorl's node with associated compression deformity. 3D maximum intensity projection (MIP) images were created on a dependent workstation as ordered by the treating provider and reviewed by the radiologist to increase sensitivity for detection of pulmonary nodules. Procedure Note Gen Ram M.D. - 04/27/2024 EXAM: CT CHEST WITHOUT IV CONTRAST COMPARISON: None FINDINGS: 2.2 cm x 2.1 cm lobulated solid right upper lobe pulmonary nodule withpunctate calcifications. No definite macroscopic fat. Diffusecentrilobular emphysema. Postsurgical changes of right upper lobe wedgeresection. Groundglass attenuation noted within the posterior right upper lobe. No pleural effusion or pneumothorax. 4 mmleft lower lobe pulmonary nodule on series 4 image 343. Moderate leftlower lobe atelectasis. Calcified atherosclerosis throughout the aorta and major branches. PFOocclusion device in place along the interatrial septum. Calcifiedatherosclerosis throughout the coronary arteries. Normal heart sizewithout pericardial effusion. Imaged portions of the upper abdomen demonstrate no acute findings. Bone windows demonstrate chronic right-sided rib fractures, perhapsrelated to prior thoracotomy. Prominent L1 superior endplate Schmorl'snode with associated compression deformity. 3D maximum intensity projection (MIP) images were created on a dependentworkstation as ordered by the treating provider and reviewed by theradiologist to increase sensitivity for detection of pulmonary nodules. IMPRESSION: 1. 2.2 cm lobulated solid right upper lobe pulmonary nodule with punctatecalcifications. While technically indeterminate, this is favored torepresent a benign hamartoma. However, given the patient's smoking historyand history of multiple malignancies, recommend comparison with prior imaging studies to document stability asthis appears new from most recent comparison chest radiograph 03/29/2002. Ifno additional prior imaging is available, attention on follow-uprecommended to document stability such as with [address] 2. 4 mm left lower lobe pulmonary nodule is indeterminate. Recommendcontinued follow-up to document resolution. 3. Post surgical changes of right upper lobe wedge resection. Groundglassattenuation within the posterior right upper lobe may be posttreatmentrelated, less likely infectious or inflammatory. Attention on follow-uprecommended. 4. Prominent L1 superior endplate Schmorl's node with associatedage- indeterminate compression deformity. Recommend correlation with pointtenderness. us Kati Colin M.D. IMG CT PROCEDURES Final Resu lt * Creatinine with Estimated GFR (04/23/2024 8:35 AM CDT) Creatinine 0.73 0.59 - 1.04 mg/dL 04/23/2024 1:30 PM CDT OWAT Estimated GFR (eGFR) >90 >=60 mL/min/BSA 04/23/2024 1:30 PM CDT OWAT Comment: Estimated GFR calculated using the 2020 CKD_EPI creatinine equation. Blood (Blood, Venous) 04/23/2024 8:35 AM CDT 04/23/2024 12:43 PM CDT us Kati Colin M.D. 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 [address] [place] [address] [place] [phone] PCP - General Family Medicine 03/09/24
--- OUTSIDE RECORDS SUMMARY | 2024-10-30 11:31 | XMS_ITS | Encounter Summary ---
Author Organization [facility] Address [address] [place] [address] Care Team Providers Care Roll Contour Grinder Name Role Phone Kati Colin M.D. Primary Care Provider Reason for Visit * Reason Onset Date Comments Med Refill 09/30/2024 Encounter Details Date Type Department Care Team (Late st Contact Info) Description 09/30/2024 Refill Division of Pulmonary Medicine in [place], [place] [address] [place] [phone] Margarita Martinez, LOREN, C.N.P., D.N.P. [address] [place] [phone] Med Refill Social History Tobacco Use Types Packs/Day Years Used Date Smoking Tobacco: Former Cigarettes Alcohol Use Standard Drinks/Week Comments Yes 2 (1 standard drink = 0.6 oz pur e alcohol) [facility] Utilities Answer Date Recorded In the [...] living situation today? I have a [facility] place to live 06/28/2024 Comments No Sex and Gender Information Value Date Recorded Sex Assigned at Female 05/07/2024 7:38 AM CDT Legal Sex Female 3:35 PM FOOD PRODUCTION ASSOCIATE Gender Identity Female 05/07/2024 7:38 AM CDT Sexual Orientation Straight 05/07/2024 7: 38 AM CDT documented as of this encounter Plan of Treatment Upcoming Encounters Date Type Department Care Team (Latest Contact Info) Description 11/01/2024 9:50 AM FOOD PRODUCTION ASSOCIATE Appointment Department of Laboratory Medicine in [address] [phone] Kati Colin M.D. [address] [place] [phone] 11/01/2024 10:10 AM FOOD PRODUCTION ASSOCIATE Appointment Department of Laboratory Medicine in [address] [place] [phone] Kati Colin M.D. [address] [place] [phone] 11/03/2024 3:30 PM FOOD PRODUCTION ASSOCIATE Comprehensive Visit Department of Ophthalmology in [place], [place] [address] [place] [phone] Hipolito Lynch M.D. [address] [place] [phone] 12/09/2024 9:30 AM CDT Appointment Department of Cardiovascular Diseases in [place], [place] [address] [place] [phone] Kati Colin M.D. [address] [place] [phone] Discharge Disposition: Home or Self Care 12/22/2024 10:30 AM CDT Clinical Communication Virtual Review in [place], [place] [address] [place] [address] 12/23/2024 10:00 AM CDT Diagnostic Division of Pulmonary Medicine in [address] [phone] Margarita Martinez APRN, C.N.P., D.N.P. [address] [place] [phone] 12/23/2024 10:30 AM CDT Diagnostic Division of Pulmonary Medicine in [address] [phone] Margarita Martinez APRN, C.N.P., D.N.P. [address] [place] [phone] 12/23/2024 11:30 AM CDT Office Visit Division of Pulmonary Medicine in [place], [place] [address] [place] [address] Margarita Martinez, LOREN, C.N.P., D.N.P. [address] [place] [address] documented as of this encounter Visit Diagnoses Diagnosis Chronic Obstructive Pulmonary Disease Without Exacerbation (HCC) documented in this encounter Care Teams Roll Contour Grinder Relationship Specialty Start Date End Date Kati Colin M.D. [address] [place] [phone] PCP - General Family Medicine 03/09/24 documented as of this encounter
--- OUTSIDE RECORDS SUMMARY | 2024-10-30 11:33 | XMS_ITS | Continuity of Care Document ---
Author Organization [place] [facility] [place] Office Address [address] [place] [phone] Assessment Encounter Date Assessment Date Assessment LastModified by Organization Details LastModified Time 10/13/2024 10/13/2024 I told the patient that [...] Imaging XR, foot, 3 or more view 025 10/13/19 25 [facility] Office, [address] [place] [address] [address] , [place], [address], 10/14/2024 17:42:08 Medication Orders None record ed. Patient TargetsNo targets recorded. Patient InstructionsNo instructions recorded. Reason for Referral None Reported. Results Created Date Observation Date Name Description Value Unit Range Abnormal Flag Note LastModifiedBy Organization Detail LastModifiedTime 10/13/19 25 XR, foot, 3 or more view No observ ation record ed. [address] [place] [address], [phone], 10/13/2024 10:55:28 Result Notes None recorded. Problems [...] LastModified by Organiz ation Details LastModified Time 10/13/2024 XR, foot, 3 or more view active [address], [phone], 10/13/2024 10:55:28 Procedure Notes None recorded. Medical [...] SNOMED-CT Code Diagnosis ICD10 Code Diagnosis Note [id number] RUTHANN LEÓN DPM [facility] [address] [place] [address] 09/23/2024 09:57:32 09/26/2024 15:23:22 Peripheral neuropathy due to type 2 diabetes mellitus 1408231938 107 E11.42 Ingrowing nail 016335392 L60.0 Onychomycosis 709957636 B35.1 Pain of to e of left foot 1314832387 65095 M79.675 Pain of to e of right foot 9485100569 02162 M79.674 Acquired h ammer toe of right foot [id number] 315541 M20.41 Peripheral vascular disease 169242280 I73.9 Nail dystr ophy due to trauma 302421849 L60.3 18066 RUTHANN LEÓN DPM [place] [facility] [address] [place] [address] 10/13/2024 10:37:16 10/13/2024 12:15:39 Peripheral neuropathy due to type 2 diabetes mellitus 9489137807 107 E11.42 Ingrowing nail 261966724 L60.0 Onychomycosis 334137108 B35.1 Pain of to e of left foot 0814222429 30851 M79.675 Pain of to e of right foot 1355223795 81762 M79.674 Acquired h ammer toe of right foot 7922961748 928903 M20.41 Peripheral vascular disease 254453448 I73.9 Nail dystr ophy due to trauma 028840674 L60.3 Health Concerns Section Related Observation LastModified by Organization Detai ls LastModified Time None Recorded Concern Status LastModified by Organization Details LastModified Time None Recorded Payers Encounter Date Sequence Insurance Name Policy Number Policy Fisher Covered Member ID Fisher Member ID Guarantor Name 10/13/2024 2 [employer] (MEDICARE SUPPLEMENT) Luz Debra [id number] Luz Richardson 10/13/2024 1 MEDICARE [place]: [id number] Luz Richardson [id number] Luz Richardson Notes Date Note Type Note Provider Name and Address Organization Details Recorded Time 10/13/2024 text/html SURGICAL PROCEDURE: L hallux IPJ fusionDATE OF SURGERY: 08/11/20 SUBJECTIVE:The patient reports that the foot is feeling good overall, with significant improvement in swelling. The patient mentions occasional pain at the tip of the toe but states that it is not present today, only if she bumps it. The patient denies any significant issues with mobility or daily activities. RUTHANN LEÓN DPM [address] [place], [phone], [facility] 10/13/2024 10:58:29 OBGyn Episode No OBEpisode recorded.
--- OUTSIDE RECORDS SUMMARY | 2024-10-30 11:33 | XMS_ITS | Data Portability ---
Author Organization [place] [facility] [place] Address [address] [place] [address] Care Team Providers Care Manager Applied Name Role Phone VIVIEN KRAFT Healthcare Management BHARATHI LIN Mobile Home Installer Assessment Encounter Date Assessment Date Assessment LastModified by Organization Details LastModified Time 07/16/2021 07/16/2021 1. Obstructive sleep apnea (AMANDA) and possible overlap syndrome: Ms. Richardson was explained the pathophysiology of AMANDA, the negative cardiovascular consequences of untreated apnea, the diagnostic approach, and the treatment options including CPAP therapy versus bilevel PAP therapy. I did review with her that there is a higher mortality risk in individuals with COPD with having untreated obstructive sleep apnea versus individuals with COPD that are not on oxygen supplementation. 2. 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 3. Morning headaches and hypnic headaches: She does note having morning and hypnic headaches which can be common symptoms of untreated sleep apnea. 4. Isolate recurrent sleep paralysis: She does have recurrent sleep paralysis episodes which likely is a reflection of poor quality sleep and frequent arousals at a REM sleep which could be related to more significant REM related obstructive sleep apnea. 5. Cognitive changes: She does note issues with short-term memory and concentration which likely is a reflection of poor quality sleep. 6. COPD: She does have a history of significant COPD requiring 24 hours of supplemental oxygenation. She does also have reported evidence of elevated pulmonary pressures which likely is a reflection of her COPD at the very least but could also be the result of untreated sleep apnea. 7. Hypertension: She is following with cardiology. 8. Obesity: She was explained the relationship between sleep and metabolism. Plan: 1. A diagnostic PSG with end-tidal CO2 monitoring will be scheduled to evaluate for overlap syndrome and sleep disorder breathing. 2. She was instructed to avoid driving or operating heavy machinery if drowsy. 3. She was advised to maintain regular follow-up with Dr. Cline in addition to her building stonecutter and park aide. 4. She was advised to engage in weight loss promoting behaviors as tolerated. 5. We may need to assess her ferritin, transferrin, and vitamin-D in the future for restless leg syndrome but is not uncommon for individuals with untreated sleep apnea to have increased restless legs syndrome symptoms. 6. She will follow-up after her testing. Not available 07/16/2021 11:58:20 08/20/2021 08/20/2021 1. Obstructive sleep apnea (AMANDA) and overlap syndrome with chronic respiratory failure: Ms. Richardson was explained was explained her diagnosis of severe AMANDA and how it was associated with significant sleep fragmentation and severe hypoxemia consistent with Overlap Syndrome and chronic respiratory failure. She was advised a trial of iVAPS therapy in light of her chronic respiratory failure and Bi-level PAP therapy not being sufficient to improve her oxygenation. 2. 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 She was explained that as she acclimates to iVAPS therapy that she should note gradual improvements in her sleep quality and level of alertness. 3. Morning headaches and hypnic headaches: She does note having morning and hypnic headaches which can be common symptoms of untreated sleep apnea. 4. Isolate recurrent sleep paralysis: She does have recurrent sleep paralysis episodes which likely is a reflection of poor quality sleep and frequent arousals at a REM sleep which could be related to more significant REM related obstructive sleep apnea. 5. Cognitive changes: She does note issues with short-term memory and concentration which likely is a reflection of poor quality sleep. 6. COPD: She does have a history of significant COPD requiring 24 hours of supplemental oxygenation. She does also have reported evidence of elevated pulmonary pressures which likely is a reflection of her COPD at the very least but could also be the result of untreated sleep apnea. 7. Hypertension: She is following with cardiology. 8. Obesity: She was explained the relationship between sleep and metabolism. Plan: 1. A full night iVAPS titration study will be scheduled and she will be titrated to supplemental O2 as well with iVAPS therapy. 2. She was instructed to avoid driving or operating heavy machinery if drowsy. 3. She was advised to maintain regular follow-up with Dr. Cline in addition to her building stonecutter and park aide. 4. She was advised to engage in weight loss promoting behaviors as tolerated. 5. We may need to assess her ferritin, transferrin, and vitamin-D in the future for restless leg syndrome but is not uncommon for individuals with untreated sleep apnea to have increased restless legs syndrome symptoms. 6. I did request that she speak to Dr. Lin about any potential restriction that she may have initiating iVAPS therapy after her lung biopsy. 7. She will follow-up after her testing. A total of 30 minutes was spent today including time spent for the visit reviewing her sleep study report and consultation note, time spent with her during the follow-up visit, and time spent after the visit documenting and coordinating care. [email or web address] Not available 08/20/2021 14:13:12 09/12/2021 09/12/2021 1. Obstructive sleep apnea (AMANDA) and overlap syndrome with chronic respiratory failure: Ms. Richardson was explained was again explained her diagnosis of severe AMANDA and how it was very well treated with iVAPS therapy in light of her chronic respiratory failure But she still requires supplemental oxygen at 2 liters/minute to improve her oxygenation status. 2. 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 3. Morning headaches and hypnic headaches: She does note having morning and hypnic headaches which can be common symptoms of untreated sleep apnea. 4. Isolate recurrent sleep paralysis: I would anticipate that her sleep paralysis episodes likely will resolve with treating her sleep apnea. 5. Restless leg syndrome and periodic limb movements during sleep: I did review with her that her study did reveal quite frequent PLMS resulting in frequent arousals. I did advise that we check her serum ferritin, transferrin, and vitamin-D as if these are low this can certainly reduce dopamine production trigger her restless legs syndrome and even PLMS. I did advise that I do not see a need to initiate gabapentin at this time. 6. Cognitive changes: She does note issues with short-term memory and concentration which likely is a reflection of poor quality sleep. 7. COPD: She does have a history of significant COPD requiring 24 hours of supplemental oxygenation. She does also have reported evidence of elevated pulmonary pressures which likely is a reflection of her COPD at the very least but could also be the result of untreated sleep apnea. 8. Hypertension: She is following with cardiology. 9. Obesity: She was explained the relationship between sleep and metabolism. Plan: 1. Commence iVAPS with 2 LPM of supplemental O2 and a DME order was released for her setup. 2. She was instructed to avoid driving or operating heavy machinery if drowsy. 3. She was advised to maintain regular follow-up with Dr. Cline in addition to her building stonecutter and park aide. 4. She was advised to engage in weight loss promoting behaviors as tolerated. 5. We will assess her ferritin, transferrin, and vitamin-D for restless leg syndrome and periodic limb movements during sleep. 6. She was advised to maintain regular follow-up with Dr. Lin. 7. She will follow-up in 6-8 weeks for her initial iVAPS follow-up visit. A total of 30 minutes was spent today including time spent for the visit reviewing her sleep study report and consultation note, time spent with her during the follow-up visit, and time spent after the visit documenting and coordinating care. Not available 09/12/2021 18:45:16 11/12/2021 11/12/2021 Assessment: 1. Obstructive sleep apnea (AMANDA): Mrs. Richardson reports that she has not yet received her iVAPS. I advised the patient that a cleaning team member will follow-up with her shortly to help her with receiving her device. 2. 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 Patient admits difficulty falling asleep or staying asleep. 3. Restless leg syndrome (RLS): Patient reports that since starting supplementation for iron and vitamin-D her symptoms have improved. Plan: 1. Patient advised that cleaning team member will follow-up with her once her device order has been sent. 2. She was instructed to avoid driving or operating heavy machinery if drowsy. She was advised that if she does note drowsiness when driving to remove herself to a safe area and take a 40-60-avrcmk nap and only continue driving if she feels fully alert. 3. Continue to follow-up with primary care provider and any specialists. 4. Follow-up in 2 months or sooner if any sleep-related problems should arise. A total of 30 minutes was spent today including time spent for the visit reviewing patient historical paperwork, time spent with patient during the visit, time spent after the visit in documentation, and time spent coordinating care with other team members. Not available 11/12/2021 15:26:56 01/11/2022 01/11/2022 Assessment: 1. Obstructive sleep apnea (AMANDA): Mrs. Richardson reports that she has not yet received her iVAPS. She is following up with her building stonecutter to undergo further testing to hopefully pushed the iVAPS through her insurance so that she may be treated. She reports that her building stonecutter said that at the very least she will push for her to have APAP in the meantime. 2. 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 Patient denies difficulty falling asleep or staying asleep. 3. Restless leg syndrome (RLS): Patient reports that since starting supplementation for iron and vitamin-D her symptoms have improved. Plan: 1. She will follow-up with her building stonecutter for further testing so that she may receive her iVAPS 2. She was instructed to avoid driving or operating heavy machinery if drowsy. She was advised that if she does note drowsiness when driving to remove herself to a safe area and take a 46-61-dwxzpb nap and only continue driving if she feels fully alert. 3. Continue to follow-up with primary care provider and any specialists. 4. Follow-up in 6-8 weeks or sooner if any sleep-related problems should arise. A total of 35 minutes was spent today including time spent for the visit reviewing patient historical paperwork, time spent with patient during the visit, time spent after the visit in documentation, and time spent coordinating care with other team members. Not available 01/11/2022 13:33:28 Plan of Treatment Reminders Order Date Submit Date Provider Last Modified By Organization Details Last Modified Time Details Appointments None recorded. Lab vitamin D, 25-hydroxy, total, serum 2020 021 [email or web address] [employer], [employer] [address] , [address], [place], [address], 13:19:19 ferritin, serum or plasma 2020 021 [email or web address] [employer], [employer] [address] , [address], [place], [address], 1 13:19:19 transferrin , serum 2020 021 [email or web address] [employer], [address] , [address], [place], [address], 13:19:19 Referral None recorded. Procedures polysomnogr aphy (PROC) 2020 021 Not available 11:59:51 polysomnogr aphy, titration study (PROC) 2020 [email or web address] Not available 14:12:42 Surgeries None recorded. Imaging None recorded. Medication Orders None recorded. Patient TargetsNo targets recorded. Patient Instructions Encounter Date Encounter Id Patient Instructions Last Modified By Organization Details Last Modified Time 07/16/2021 [id number] learning about sleep apnea [email or web address] Not available 07/16/2021 11:59:51 learning about CPAP for sleep apnea Not available 07/16/2021 11:59:51 Reason for Referral None Reported. Results Created Date Observation Date Name Description Value Unit Range Abnormal Flag Note LastModifiedBy Organization Detail LastModifiedTime 08/10/2008/09/2021 polys omnog herb (PROC ) No observ ation record ed. [email or web address] Not Available 2020 13:36:25 08/10/20 21 08/09/2021 polys omnog herb (PROC ) No observ ation record ed. Not Available 2020 14:14:22 08/10/20 21 08/09/2021 polys omnog herb (PROC ) No observ ation record ed. [email or web address] Not Available 2020 14:13:21 08/10/20 21 08/09/2021 polys omnog herb (PROC ) No observ ation record ed. Not Available 2020 14:14:09 08/27/20 21 08/26/2021 polys omnog herb , titra tion study (PROC ) No observ ation record ed. [email or web address] Not Available 2020 14:46:23 08/27/20 21 08/26/2021 polys omnog herb , titra tion study (PROC ) No observ ation record ed. [email or web address] Not Available 2020 14:45:54 08/27/20 21 08/26/2021 polys omnog herb , titra tion study (PROC ) No observ ation record ed. [email or web address] Not Available 2020 16:42:10 Result Notes None recorded. Problems Name Problem SNOMED Code Status Onset Date Resolution Date Notes Provider Name and Address Organization Details Recorded Time Dependence on supplementa l oxygen 402132749660 Active 2020 Lemuel Louie MD [address],[facility] [address], [place], [address], [facility] 11:58:51 Chronic obstructive pulmonary disease 62573009 Active 2020 Lemuel Louie MD [address],[facility] [address], [place], [address], [facility] 11:58:52 Hypnic headache 7073235879089 09 Active 2020 Lemuel Louie MD [address], [place], [address], [facility] 11:58:53 Morning headache 975085266 Active 2020 Lemuel Louie MD [address], [place], [address], [place] [facility] 11:58:54 Essential hypertensio n 52513048 Active 2020 Lemuel Louie MD [address], [place], [address], [place] [facility] 11:58:55 Obesity 936315566 Active 2020 Lemuel Louie MD [address], [place], [address], [place] [facility] 11:58:56 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 3112052324587 07 Active 2020 Lemuel Louie MD [address], [place], [address], [place] [facility] 11:58:57 Difficulty sleeping 040758376 Active 2020 Lemuel Louie MD [address], [place], [address], [place] [facility] 11:58:57 Hypersomnia 72104313 Active 2020 Lemuel Louie MD [address], [place], [address], [place] [facility] 11:58:59 Fatigue 46601277 Active 2020 Lemuel Louie MD [address], [place], [address], [place] [facility] 11:58:59 Snoring 24825522 Active 2020 Lemuel Louie MD [address], [place], [address], [place] [facility] 11:59:00 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 Lemuel Louie MD [address], [place], [address], [place] [facility] 16:42:07 Overlap syndrome 983382009 Active 2020 Lemuel Louie MD [address], [place], [address], [place] [facility] 14:17:42 Problem Notes None recorded. Procedures Surgical History Date Name Laterality Status Provider Name and Address Organization Details Recorded Time 09/29/18 60 tonsillectomy completed Lemuel Louie MD [address], [place], [address], [place] [facility] 07/16/2021 11:26:23 carotid endarterectomy completed Lemuel Louie MD [address], [place], [address], [place] [facility] 07/14/2021 13:16:05 operative procedure on spinal structure completed Lemuel Louie MD [address], [place], [address], [place] [facility] 07/16/2021 11:26:35 Imaging Results Imaging Date Name Status LastModified by Organization Details LastModified Time 08/09/2021 polysomnography (PROC) completed [email or web address] Information not available 08/20/2021 13:36:25 08/09/2021 polysomnography (PROC) completed Information not available 08/10/2021 14:14:22 08/09/2021 polysomnography (PROC) completed [email or web address] Information not available 08/10/2021 14:13:21 08/09/2021 polysomnography (PROC) completed [email or web address] Information not available 08/10/2021 14:14:09 08/26/2021 polysomnography, titration study (PROC) completed [email or web address] Information not available 08/27/2021 14:46:23 08/26/2021 polysomnography, titration study (PROC) completed [email or web address] Information not available 08/27/2021 14:45:54 08/26/2021 polysomnography, titration study (PROC) completed Information not available 09/12/2021 16:42:10 Procedure Notes None recorded. Medical Equipment None Reported. Allergies Allergen ID Allergen Name Allergen Category Reaction Reaction Severity Criticality Documentation Date Start Date Code Code System Note Provider Name and Address Organization Details Recorded Time 1441 oxycodone medicatio n itching rash Not available Not available Not available 07/14/2021 [id number] RxNodavid Louie MD [address], [place], [address], [place] [facility] 13:17:45 1442 hydrocodo ne Not available itching rash Not available Not available Not available 07/14/2021 [id number] Nerissa Louie MD [address], [place], [address], [place] [facility] 13:17:51 1443 acetamino phen / oxycodone medicatio n itching rash Not available Not available Not available 07/14/2021 [id number] Nerissa Louie MD [address], [place], [address], [place] [facility] 13:17:57 Medications Name Sig Start Date Stop Date Status Note LastModified by Organization Details LastModified Time amoxicillin 500 mg capsule active Not Available Not Available N ot Available prednisone 10 mg tablet active Not Available Not Available Not Available doxycycline hyclate 100 mg capsule active Not Available Not Available Not Available Synvisc 16 mg/2 mL intra-articular syringe active Not Available Not Available Not Available potassium chloride ER 10 mEq tablet,extended release active Not Available Not Available Not Available acetaminophen 300 mg-codeine 30 mg tablet 07/16 completed Not Available Not Available Not Available amlodipine 5 mg tablet active Not Available Not Available Not Available sulfamethoxazole 800 mg-trimethoprim 160 mg tablet 07/16 completed Not Available Not Available Not Available meloxicam 7.5 mg tablet active Not Available Not Available Not Available prednisolone acetate 1 % eye drops,suspension active Not Available Not Avail able Not Available pantoprazole 40 mg tablet,delayed release active Not Available Not Available Not Available metformin 1,000 mg tablet active Not Available Not Available No t Available fluticasone 500 mcg-salmeterol 50 mcg/dose blistr powdr for inhalation active Not Available Not Available N ot Available gabapentin 300 mg capsule active Not Available Not Available N ot Available montelukast 10 mg tablet active Not Available Not Available No t Available furosemide 20 mg tablet active Not Available Not Available Not Available levofloxacin 750 mg tablet active Not Available Not Available No t Available albuterol sulfate HFA 90 mcg/actuation aerosol inhaler active Not Available Not Availa ble Not Available amoxicillin 500 mg-potassium clavulanate 125 mg tablet 07/16 completed Not Available Not Available Not Available olmesartan 5 mg tablet active Not Available Not Available Not Available azithromycin 500 mg tablet active Not Available Not Available No t Available rosuvastatin 20 mg tablet active Not Available Not Available No t Available rosuvastatin 40 mg tablet active Not Available Not Available No t Available hydrochlorothiaz louise 12.5 mg tablet active Not Available Not Available Not Available Suprep Bowel Prep Kit 17.5 gram-3.13 gram-1.6 gram oral solution active Not Available Not Availabl e Not Available Spiriva Respimat 1.25 mcg/actuation solution for inhalation active Not Available Not Available N ot Available Vitals None Recorded Social History Question Answer Notes LastModified by Organizat ion Details LastModified Time Tobacco Smoking Status Former Smoker quit 2017; 30-35 pack-years Lemuel Louie MD [address], [place], [address], [place] [facility] 07/16/2021 11:35:32 What Is Your Level Of Alcohol Consumption? Occasional [email or web address] Information not available 07/14/2021 How Many Times Per Week Do You Consume Alcohol? 1-2 Times Per Week Information not available 07/16/2021 What Is Your Level Of Caffeine Consumption? Moderate Information not available 11/12/2021 In The 14 Days Before Symptom Onset, Have You Had Close Contact With A Laboratory-rupesh [id number] While That Case Was Ill? No Information not available 11/12/2021 Are You Currently Employed? No Retired [email or web address] Information not available 07/16/2021 What Type Of Diet Are You Following? 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 3-4 Times Per Week Information not available 11/12/2021 When Did You Quit Smoking? 1-5yearssincel astcigarette Information not available 11/12/2021 How Many Children Do You Have? 5 [email or web address] Information not available 07/16/2021 What Is Your Relationship Status? [email or web address] Information not available 07/16/2021 How Much Tobacco Do You Smoke? 1 PPD Information not available 11/12/2021 Do You Use Any Illicit Or Recreational Drugs? No Information not available 07/14/2021 Has Tobacco Cessation Counseling Been Provided? No Information not available 11/12/2021 Are You Currently In School? No Information not available 11/12/2021 Sex: Unknown Functional Status Question Answer Note LastModified by Organizat ion Details LastModified Time What is your exercise level? Occasional [email or web address] Information not available 07/16/2021 Mental Status None recorded. Family History Relationship Description Onset Age of this Age Resolved Age Notes LastModified by Organization Details LastModified Time Brother Obstructive sleep apnea syndrome [email or web address] Not available 2021 11:17:21 Mother Coronary arterioscler osis [email or web address] Not available 2020 11:50:18 Mother Essential hypertension [email or web address] Not available 11:17:21 Medical History Condition Response Other Y Obesity Y Vision or Eye Problems Y Arthritis Y High Cholesterol Y Cancer Y Hypertension Y COPD Y Type II Diabetes Mellitus Y Peripheral Neuropathy Y Gynecological HistoryNo gynecological history recorded. 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 [id number] 64242 F09 Essential hypertension 47268713 I10 Obesity 905131001 E66.9 Chronic ob structive pulmonary disease 49266283 J44.9 Dependence on supplemental oxygen 6985285038 07 Z99.81 Hypnic headache 73467893 01 27982 G44.81 Morning headache 8205467 02 R51.9 Recurrent isolated sleep paralysis 358990415 G47.53 [id number] MD Aline Kimball [facility] [address] [place] [address] 08/20/2021 13:31:52 08/20/2021 14:04:11 Snoring 91254772 R06.83 Hypersomnia 04761562 G47 .10 Fatigue 56231189 R53.83 Difficulty sleeping 3013 31159 Z72.820 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 3135841676 67121 F09 Essential hypertension 25265043 I10 Obesity 605296504 E66.9 Chronic ob structive pulmonary disease 38396893 J44.9 Dependence on supplemental oxygen 7846880914 07 Z99.81 Hypnic headache 64223299 01 55430 G44.81 Morning headache 7781115 02 R51.9 Recurrent isolated sleep paralysis 273796501 G47.53 Obstructiv e sleep apnea syndrome 69812985 G47.33 Overlap syndrome 1220840 08 M35.1 [id number] Lemuel Louie MD [facility] [address] [place] [address] 09/12/2021 16:26:14 09/12/2021 16:52:45 Obstructive sleep apnea syndrome 05766380 G47.33 Overlap syndrome 6628866 08 M35.1 Chronic ob structive pulmonary disease 55994838 J44.9 Snoring 06260876 R06.83 Hypersomnia 33769987 G47 .10 Fatigue 51670735 R53.83 Difficulty sleeping 3013 95935 Z72.820 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 9157803915 93949 F09 Essential hypertension 32592066 I10 Obesity 121137465 E66.9 Dependence on supplemental oxygen 5656075610 07 Z99.81 Hypnic headache 60976030 01 13829 G44.81 Morning headache 9754147 02 R51.9 Recurrent isolated sleep paralysis 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.53 [id number] Lemuel Louie MD [facility] [address] [place] [address] 11/12/2021 11:17:20 11/12/2021 15:35:49 Obstructive sleep apnea syndrome 80470741 G47.33 Chronic ob structive pulmonary disease 48217478 J44.9 Dependence on supplemental oxygen 1472835286 07 Z99.81 [id number] MD Aline Kimball [facility] [address] [place] [address] 01/11/2022 11:58:04 01/11/2022 13:35:58 Obstructive sleep apnea syndrome 55330607 G47.33 Chronic ob structive pulmonary disease 27425338 J44.9 Dependence on supplemental oxygen 0100304013 07 Z99.81 Health Concerns Section Related Observation LastModified by Organization Detai ls LastModified Time None Recorded Concern Status LastModified by Organization Details LastModified Time None Recorded Advance Directives Directive None Recorded Payers Encounter Date Sequence Insurance Name Policy Number Policy Fisher Covered Member ID Fisher Member ID Guarantor Name 07/16/2021 1 [facility] (HMO) [id number] Luz Richardson [id number] Luz Richardson 08/20/2021 1 [facility] (MEDICARE REPLACEMENT/A DVANTAGE - HMO) [id number] Luz Richardson [id number] Luz Richardson 09/12/2021 1 [facility] (MEDICARE REPLACEMENT/A DVANTAGE - HMO[id number] [id number] Luz Richardson 11/12/2021 2 [employer] (MEDICARE SUPPLEMENT) Luz Richardson [id number] Luz Richardson 11/12/2021 1 [place] Luz Richardson [id number] Luz Richardson 01/11/2022 2 [employer] (MEDICARE SUPPLEMENT) Luz Richardson [id number] Luz Richardson 01/11/2022 1 [place] Luz Richardson [id number] Luz Richardson Notes Date Note Type Note Provider Name and Address Organization Details Recorded Time 07/16/2021 text/html Ms. Richardson is a very pleasant 65-year-old postmenopausal female with a very complex (central) sleep apnea past medical history including COPD, hypertension, hyperlipidemia, pulmonary hypertension, history of subarachnoid hemorrhage, macular degeneration, type 2 diabetes mellitus with peripheral neuropathy, and obesity presents today for the above-mentioned chief complaint via telemedicine secondary to the COVID-19 pandemic. She reports today that she has a longstanding history of COPD and has been working a pulmonary for the last 10 years and she is currently on continuous oxygen supplementation 24 hours a day at 2 liters/minute. She does indicate having history of snoring from what she has been told by her daughter and other family but she does note she has also been told that she stops breathing when sleeping and she herself has woken up abruptly gasping during the night. She does note that it takes about an hour for to fall asleep but this is with going to bed at 8:00 p.m. and she wakes at least 5 times per night for nocturia. She does note generally waking at 6:30 a.m. and feels unrefreshed but she does note she can wake in the morning with headaches as well as having hypnic headaches as well. She does note dry mouth and nocturnal reflux symptoms as well. She does report having symptoms consistent with restless leg syndrome which can interfere with her ability to initiate sleep on many nights. She is not aware of periodic limb movements during sleep were sleep-related leg cramps. She denies having history of bruxism. She denies having history of sleep talking, sleep walking, sleep terrors, confusional arousals, dream vocalizations, and dream enactment behaviors. She does recall dreams occasionally but not on a regular basis. She does note having a longstanding history of periodic episodes of sleep paralysis but she is not experiencing hypnopompic or hypnagogic hallucinations, or cataplexy. She does note having high levels of fatigue and hypersomnolence to the point where she will doze off unintentionally throughout the day. She does not drive and has not driven in a number of years. She does feel that her short-term memory and concentration could be significantly better but she denies any issues with irritability, depressed mood, or even anxiety. Sleep-Wake Schedule: Nighttime routine: Watches TV, reads on phone Total amount of time in bed: 10 hours Total amount of time asleep: 6 hours Weekday bedtime: 8:00 p.m. Weekday wake time: 630 am and feels unrefreshed Weekend bedtime: 8:00 p.m. Weekend wake time: 630 am and feels unrefreshed Number of arousals during the night: 5 times per night secondary to nocturia How long are you awake in total during the night?: How long does it take for you to initiate sleep?: 60 minutes Do you nap? {{Yes * No}} How many days a week do you nap? Daily What time of day? Variable How long are the naps? Variable Review of Sleep Symptoms: Obstructive Sleep Apnea (AMANDA): {{Snoring, witnessed apneas, gasping arousals, dry mouth, nocturia, occasional morning and hypnic headaches, nocturnal reflux# Snoring witne ssed apneas Gasping or choking Coughing Noct urnal reflux Night sweats Palpitations N octurnal panic Nocturia Hypnic headaches Morning headaches Dry mouth Nasal congestion Sore throat}} Restless Legs Syndrome (RLS) / Periodic Limb Movement Disorder (PLMD) / Bruxism: {{restless legs syndrome symptoms# irresistibl e urge to move the legs associated w/ sensory complaints (paresthesia, dyesthesia) motor restlessness worsenin g of symptoms at rest and relief with motor activation increased severity at night or evening kicking during sleep sleep-related leg cramps myoclonus brux ism}} Parasomnia: {{acting out dreams dream vocalization sleep talking sleep walking sleep eating sleep sex sleep terrors confusional arousals exploding head syndrome head banging nightmares}} Hypersomnia: {{Hypersomnolence, fatigue, sleep paralysis# hypnogogic hallucinations hypnap ompic hallucinations sleep paralysis sleep drunkenness delusiona l dreams frequent dream recall fatigue drowsiness while driving}} Insomnia: {{ difficulty initiating sleep, difficulty maintaining sleep, non restorative sleep# Difficulty initiating sleep Difficulty maintaining sleep water trainer awakening Nonrestorat lori sleep}} Other symptoms: {{decreased short-term memory and concentration# irrita bility decreased concentration decreas ed short-term memory decreased sexual libido erectile dysfunction body rocking}} Lemuel Louie MD [address], [place], [address], [place] [facility] 07/16/2021 12:00:55 08/20/2021 text/html Ms. Richardson is a very pleasant 65-year-old postmenopausal female with a very complex (central) sleep apnea past medical history including COPD, hypertension, hyperlipidemia, pulmonary hypertension, history of subarachnoid hemorrhage, macular degeneration, type 2 diabetes mellitus with peripheral neuropathy, and obesity presents today for follow up of her recent diagnostic PSG performed on 08/09/21 via telemedicine secondary to the COVID-19 pandemic. To recap, she presented reporting she has a longstanding history of COPD and has been working a pulmonary for the last 10 years and she was currently on continuous oxygen supplementation 24 hours a day at 2 liters/minute. She indicated having a history of snoring from what she has been told by her daughter and other family but she has also been told that she stops breathing when sleeping and she herself has woken abruptly gasping during the night. She noted it takes about an hour for to fall asleep but this was with going to bed at 8:00 p.m. and she wakes at least 5 times per night for nocturia. She noted generally waking at 6:30 a.m. and felt unrefreshed and she can wake in the morning with headaches as well as having hypnic headaches as well. She reported having symptoms consistent with restless leg syndrome which can interfere with her ability to initiate sleep on many nights. She discussed having high levels of fatigue and hypersomnolence to the point where she will doze off unintentionally throughout the day. She does not drive and has not driven in a number of years. She felt her short-term memory and concentration could be significantly better but she denied any issues with irritability, depressed mood, or even anxiety. She presented for a diagnostic PSG on 08/09/21, which revealed the presence of {{mild moderately severe severe*}} Obstructive sleep apnea (AMANDA) with an AHI of 65.9/hr associated with significant {{hypoxemia* desatura tions}} to 56% with her oxygen saturation being <88% for 100% of her total sleep time on room air and significant sleep disruption and fragmentation. She does note that overall general she felt she slept relatively well during her recent study but did find herself waking up a bit more to go the bathroom than usual. She otherwise has not had any interim change in her overall sleep symptoms as we discussed during her consultation visit. She does note that she is scheduled for a lung biopsy on 09/10/2021. Sleep-Wake Schedule: Nighttime routine: Watches TV, reads on phone Total amount of time in bed: 10 hours Total amount of time asleep: 6 hours Weekday bedtime: 8:00 p.m. Weekday wake time: 630 am and feels unrefreshed Weekend bedtime: 8:00 p.m. Weekend wake time: 630 am and feels unrefreshed Number of arousals during the night: 5 times per night secondary to nocturia How long are you awake in total during the night?: How long does it take for you to initiate sleep?: 60 minutes Do you nap? {{Yes * No}} How many days a week do you nap? Daily What time of day? Variable How long are the naps? Variable Lemuel Louie MD [address] [address], [place], [address], [facility] 08/20/2021 14:13:33 09/12/2021 text/html Ms. Richardson is a very pleasant 66-year-old postmenopausal female with a very complex (central) sleep apnea past medical history including COPD, hypertension, hyperlipidemia, pulmonary hypertension, history of subarachnoid hemorrhage, macular degeneration, type 2 diabetes mellitus with peripheral neuropathy, and obesity presents today for follow up of her recent diagnostic PSG performed on 08/09/21 via telemedicine secondary to the COVID-19 pandemic. To recap, she presented reporting she has a longstanding history of COPD and has been working a pulmonary for the last 10 years and she was currently on continuous oxygen supplementation 24 hours a day at 2 liters/minute. She indicated having a history of snoring from what she has been told by her daughter and other family but she has also been told that she stops breathing when sleeping and she herself has woken abruptly gasping during the night. She noted it takes about an hour for to fall asleep but this was with going to bed at 8:00 p.m. and she wakes at least 5 times per night for nocturia. She noted generally waking at 6:30 a.m. and felt unrefreshed and she can wake in the morning with headaches as well as having hypnic headaches as well. She reported having symptoms consistent with restless leg syndrome which can interfere with her ability to initiate sleep on many nights. She discussed having high levels of fatigue and hypersomnolence to the point where she will doze off unintentionally throughout the day. She does not drive and has not driven in a number of years. She felt her short-term memory and concentration could be significantly better but she denied any issues with irritability, depressed mood, or even anxiety. She presented for a diagnostic PSG on 08/09/21, which revealed the presence of {{mild moderately severe severe*}} Obstructive sleep apnea (AMANDA) with an AHI of 65.9/hr associated with significant {{hypoxemia* desatura tions}} to 56% with her oxygen saturation being <88% for 100% of her total sleep time on room air and significant sleep disruption and fragmentation. She presented for full night iVAPS titration study on 08/26/2021 which resulted in excellent control of her severe obstructive sleep apnea with a residual AHI of 0 per hour but as a result of persistent hypoxemia despite her sleep apnea being very well controlled she was titrated to supplemental oxygen at 2 liters/minute with her oxygen fátima being 89%. Her quality of sleep improved quite dramatically with significant REM rebound effect as well. She reports that overall general she felt that she actually slept quite well with iVAPS therapy during the night. She does feel that in general her quality sleep was definitely better than it was during the 1st study and she actually was surprised at how comfortable she felt breathing with the device that she was apprehensive at the start of the night. She is very much looking for to getting started with therapy as soon as possible. She also indicates that she was previously treated with gabapentin for possible restless leg syndrome by a neurologist but as a result of developing lower extremity edema she was discontinued for the medication. Sleep-Wake Schedule: Nighttime routine: Watches TV, reads on phone Total amount of time in bed: 10 hours Total amount of time asleep: 6 hours Weekday bedtime: 8:00 p.m. Weekday wake time: 630 am and feels unrefreshed Weekend bedtime: 8:00 p.m. Weekend wake time: 630 am and feels unrefreshed Number of arousals during the night: 5 times per night secondary to nocturia How long are you awake in total during the night?: How long does it take for you to initiate sleep?: 60 minutes Do you nap? {{Yes * No}} How many days a week do you nap? Daily What time of day? Variable How long are the naps? Variable Lemuel Louie MD [address],[facility] [address], [place], [address], [facility] 09/12/2021 18:46:26 11/12/2021 text/html Ms. Richardson is a very pleasant 66-year-old postmenopausal female with a very complex (central) sleep apnea past medical history including COPD, hypertension, hyperlipidemia, pulmonary hypertension, history of subarachnoid hemorrhage, macular degeneration, type 2 diabetes mellitus with peripheral neuropathy, and obesity. She was diagnosed with severe Obstructive sleep apnea (AMANDA) during PSG study on 08/09/21 and successfully titrated to iVAPS with supplemental oxygen 2 liters/minute on 08/26/21. She was last seen 09/12/21 and presents today for initial iVAPS therapy follow-up visit. This is a telemedicine visit. Today patient reports that she has still has not received her iVAPS device. She reports that she had different insurance when she was prescribed the device; however, her insurance has switched to Medicare and her claim was denied. She reports that she reached out to our office and someone had told her that they would send an order to [facility], but she has not heard from anyone since. With regards to her Restless leg syndrome (RLS) symptoms, she reports that the iron and vitamin-D supplementation seems to be working in improving her symptoms. She reports that she still takes a Tylenol before bed to treat the achy feeling, but she notices that she does not wake up as much throughout the night and she is able to get longer periods of sleep now. She denies changes to medications or medical history at this time. Sleep-Wake Schedule: Goes to bed later, wakes up later Nighttime routine: Watches TV, reads on phone Total amount of time in bed: 10 hours Total amount of time asleep: 6 hours Weekday bedtime: 9-10 p.m. Weekday wake time: 9 am and feels unrefreshed Weekend bedtime: 9-10 p.m. Weekend wake time: 9 am and feels unrefreshed Number of arousals during the night: 5 times per night secondary to nocturia, How long are you awake in total during the night?: How long does it take for you to initiate sleep?: 60 minutes Do you nap? Yes How many days a week do you nap? Daily What time of day? Variable How long are the naps? Variable Objective Sleep Metrics: ESS not performed during today's telemedicine visit She does not have any further questions or concerns at this time. Lemuel Louie MD [address], [place], [address], [facility] 11/13/2021 10:28:56 01/11/2022 text/html Ms. Richardson is a very pleasant 66-year-old postmenopausal female with a very complex (central) sleep apnea past medical history including COPD, hypertension, hyperlipidemia, pulmonary hypertension, history of subarachnoid hemorrhage, macular degeneration, type 2 diabetes mellitus with peripheral neuropathy, and obesity. She was diagnosed with severe Obstructive sleep apnea (AMANDA) during PSG study on 08/09/21 and successfully titrated to iVAPS with supplemental oxygen 2 liters/minute on 08/26/21. She was last seen 11/12/21 and presents today for Obstructive sleep apnea (AMANDA) follow-up. This is a telemedicine visit. Today patient reports that she has still has not received her iVAPS device. She reports that she had different insurance when she was prescribed the device; however, her insurance has switched to Medicare and her claim was denied. She states she has an appointment with [facility] in a couple of weeks to do further testing to hopefully pushed her iVAPS through her insurance quicker. She states overall she is sleeping well and sleeping for longer periods, but she wakes up still feeling fatigued. She also mentions she had RSV 3 weeks ago and is still recovering from it, but she continues to recover well and denies any complications from the virus. With regards to her Restless leg syndrome (RLS) symptoms, she reports that the iron and vitamin-D supplementation seems to be working in improving her symptoms. She reports that she still takes a Tylenol before bed to treat the achy feeling, but she notices that she does not wake up as much throughout the night and she is able to get longer periods of sleep now. She mentions she increased her D3 supplement and her symptoms are very well controlled. She denies changes to medications or medical history at this time. Sleep-Wake Schedule: No changes Nighttime routine: Watches TV, reads on phone Total amount of time in bed: 10 hours Total amount of time asleep: 6 hours Weekday bedtime: 9-10 p.m. Weekday wake time: 9 am and feels unrefreshed Weekend bedtime: 9-10 p.m. Weekend wake time: 9 am and feels unrefreshed Number of arousals during the night: 5 times per night secondary to nocturia, How long are you awake in total during the night?: How long does it take for you to initiate sleep?: 60 minutes Do you nap? Yes How many days a week do you nap? Daily What time of day? Variable How long are the naps? Variable Objective Sleep Metrics: ESS refused by patient She does not have any further questions or concerns at this time. Lemuel Louie MD [address], [place], [address], [place] [facility] 01/12/2022 16:32:51 OBGyn Episode No OBEpisode recorded.
--- OUTSIDE RECORDS SUMMARY | 2024-10-30 11:33 | XMS_ITS | Clinical Summary ---
Author Organization [facility] Address [place], [place] [address] Care Team Providers Care Hunter Skin Diver Name Role Phone Pcp, No Primary Care Provider Unavailabl e Allergies Active Allergy Reactions Criticality Noted Date Comments Doxycycline Diarrhea 06/10/2024 Oxycodone Rash 06/10/2024 Medications No known medications Social History Tobacco Use Types Packs/Day Years Used Date Smoking Tobacco: Never Assessed Comments Unknown Sex and Gender Information Value Date Recorded Sex Assigned at Not on file Legal Sex Female 1:11 PM CDT Gender Identity Not on file Sexual Orientation Not on file Last Filed Vital Signs Vital Sign Reading Time Taken Comments Blood Pressure 148/91 06/10/2024 6:03 PM CDT Pulse 70 06/10/2024 6:03 PM CDT Temperature 36.7 C (98 F) 06/10/2024 2:46 PM CDT Respiratory Rate 16 06/10/2024 2:46 PM CDT Oxygen Saturation 100% 06/10/2024 4:48 PM CDT Inhaled Oxygen Concentration - - Weight 106.6 kg (235 lb) 06/10/2024 2:46 PM CDT Height 165.1 cm (5' 5) 06/10/2024 2:46 PM CDT Body Mass Index 39.11 06/10/2024 2:46 PM CDT Plan of Treatment Health Maintenance Due Date Last Done Comments Tdap 1967 Depression screening for age 12+ 1968 BMI (ht and wt on same day) for age 18+ 1974 Hepatitis C screening for age 18-79 1974 Tetanus booster 1976 Colonoscopy through age 75 2001 Lipids for age 45-75 2001 Mammogram for age 45-75 2001 Pneumococcal series for age 50+ (1 of 1 - PCV) 2006 Zoster (shingles) series for age 50+ (1 of 2) 2006 DEXA/DXA scan for age 65+ 2021 COVID-19 vaccine series (3 - 2023-25 season) 2024 12/22/2020, 11/30/2020 Influenza for age 65+ 05/30/2024 RSV vaccine for adults or pr egnancy (1 - 1-dose 75+ series) 2031 Insurance MEDICARE PART B HB ONLY MEDICARE PART A HB ONLY [employer] [address] Care Teams Hunter Skin Diver Relationship Specialty Start Date End Date Pcp, No . PCP - General 04/27/24
--- NOTE | 2024-10-30 11:59 | ED_ITS ---
HPI - SOB/Dyspnea General Time Seen by Provider: 11:55 Date Seen: 10/30/24 Chief Complaint: Shortness of Breath/Dyspnea Stated Complaint: Short of Breath, Chest and Back Pain Time Seen by Provider: 10/30/24 11:35 Source: patient, family and RN notes reviewed Mode of arrival: wheelchair Limitations: no limitations History of Present Illness HPI Narrative: This 69yo female with underlying oxygen dependent COPD is coming into the ED after talking to triage nurse from [facility] with complaint of increasing shortness of breath. Patient has baseline shortness of breath but this has been worsening and escalating since she was in [place]. Patient flew to [place] on October 18, noted that the shortness of breath started to worsen a few days after being there. She notes no increased cough, no fevers, hasn't felt like she has developed an illness. She has not noted increasing leg swelling or calf pain, no history of prior blood clots. She has also noted some discomfort in her lower chest, torso, sides and her back in this area for about the last month. She was prednisone dependent but was stopped in February. She is continuously on oxygen 3 L nasal cannula. Uses IVAP for sleep. She was in [place] from October 18 through the . She does live with her daughter in town, there has been a GI illness there but started well Sancho was gone, she has had no GI symptoms herself. She does note that her shortness of breath is definitely worse with exertion. They tell me she has a stress echo scheduled because of these symptoms but when she talked to the nurse triage line, they thought she should come in to be evaluated for possible blood clots. Reviewed with Sancho that I certainly do agree with this. elicited complaint: shortness of breath Related Data Home Medications ?Medication ?Instructions ?Recorded ?Confirmed albuterol sulfate 90 mcg/actuation inhalation 05/07/24 05/07/24 aerosol inhaler alendronate 10 mg tablet 10 mg PO DAILY 05/07/24 08/11/24 ammonium lactate 12 % lotion topical 05/07/24 05/07/24 dapagliflozin propanediol [Farxiga] PO 05/07/24 05/07/24 furosemide 20 mg tablet mg PO 05/07/24 05/07/24 glipizide 2.5 mg tablet, extended 2.5 mg PO DAILY 05/07/24 08/11/24 release 24 hr montelukast 10 mg tablet 10 mg PO DAILY 05/07/24 08/11/24 potassium chloride 10 mEq 10 meq PO DAILY 05/07/24 08/11/24 tablet,extended release revefenacin 175 mcg/3 mL solution 175 mcg inhalation QDAY 05/07/24 08/11/24 for nebulization (Yupelri) rosuvastatin 40 mg tablet 40 mg PO DAILY 05/07/24 08/11/24 valsartan 160 mg tablet mg PO 05/07/24 05/07/24 acetaminophen PO 06/21/24 cetirizine .ROUTE 06/21/24 Previous Rx's ?Medication ?Instructions ?Recorded albuterol sulfate 90 mcg/actuation 2 puff inhalation Q4-6H PRN 06/22/24 aerosol inhaler shortness of breath or wheezing #8.5 grams tizanidine 2 mg tablet 2 mg PO Q8H PRN muscle spasticity 07/13/24 #12 tabs acetaminophen 300 mg-codeine 30 mg 1 tab PO Q4-6H PRN pain #20 tabs 08/11/24 tablet prednisone 20 mg tablet 20 mg PO BID #10 tabs 10/30/24 tizanidine 2 mg tablet 2 mg PO Q8H PRN muscle spasticity 10/30/24 #20 tabs Allergies Allergy/AdvReac Type Severity Reaction Status Date / Time hydrocodone Allergy Verified 10/30/24 11:42 oxycodone Allergy Verified 10/30/24 11:42 doxycycline AdvReac Mild Diarrhea Verified 10/30/24 11:42 Review of Systems Status of ROS: Reports: 6 or more systems reviewed and unremarkable except as noted in History and below [facility] Medical History (Updated 10/30/24 @ 14:57 by Quita Gomes MD) COPD (chronic obstructive pulmonary disease) ?J44.9 - Chronic obstructive pulmonary disease, unspecified (ICD-10) Social History Smoking Status: Former smoker Do you use any of these nicotine containing products: None Second hand tobacco smoke exposure: No How often do you have a drink containing alcohol: 2-4 times a month AUDIT-C Alcohol total score: 2 Non-prescribed substance use: denies use Caffeine: Yes service: No Exam Const: Vital Signs, click to edit/add: Vital Signs - 24 hr 10/30/24 11:42 10/30/24 11:59 10/30/24 12:07 Temperature 98.2 F Pulse Rate 85 Pulse Rate [Pulse Oximeter] 83 Respiratory Rate 24 Blood Pressure Blood Pressure [Ri ght Forearm] 164/78 H Pulse Oximetry 97 98 98 Oxygen Delivery Me thod Nasal Cannula Nasal Cannula Nasal Cannula Oxygen Flow Rate 3 3 3 10/30/24 12:15 10/30/24 12:30 10/30/24 12:31 Temperature Pulse Rate 80 80 79 Pulse Rate [Pulse Oximeter] Respiratory Rate Blood Pressure 163/96 H Blood Pressure [Ri ght Forearm] Pulse Oximetry 99 98 98 Oxygen Delivery Me thod Nasal Cannula Nasal Cannula Nasal Cannula Oxygen Flow Rate 3 3 3 10/30/24 12:45 10/30/24 13:00 10/30/24 13:02 Temperature Pulse Rate 81 79 83 Pulse Rate [Pulse Oximeter] Respiratory Rate Blood Pressure 171/93 H Blood Pressure [Ri ght Forearm] Pulse Oximetry 99 99 100 Oxygen Delivery Me thod Nasal Cannula Nasal Cannula Nasal Cannula Oxygen Flow Rate 3 3 3 10/30/24 13:03 10/30/24 13:30 10/30/24 13:35 Temperature Pulse Rate 79 86 87 Pulse Rate [Pulse Oximeter] Respiratory Rate Blood Pressure Blood Pressure [Ri ght Forearm] Pulse Oximetry 99 99 100 Oxygen Delivery Me thod Oxygen Flow Rate 10/30/24 13:45 10/30/24 14:00 Temperature Pulse Rate 81 82 Pulse Rate [Pulse Oximeter] Respiratory Rate Blood Pressure Blood Pressure [Ri ght Forearm] Pulse Oximetry 100 100 Oxygen Delivery Me thod Oxygen Flow Rate Joana is a 69-year-old female that is alert, interactive, no apparent distress. She is very pleasant, has oxygen on. She is able to speak in complete sentences. Voice is not hoarse. Pupils equal round, sclera clear, symmetrical facial function. Neck supple, do not appreciate any jugular venous distension, no adenopathy. Lungs are clear, somewhat distant breath sounds but no wheezing or crackles, no tachypnea. CV regular rate and rhythm no significant murmur noted, normal S1-S2. Abdomen is soft, nontender, nondistended, no organomegaly. She has thickened lower extremities that seems symmetric, she does have sock line on both sides but no overtly concerning pitting edema, just seems to have more thickened lower extremities. There is no changes concerning for infection, calves are nontender. Documenting provider has reviewed patient's vital signs: yes Course Course ED Course: Reviewed with Sancho that I do agree with the triage nurse, based on her history I do think we should proceed with chest CT PE protocol. She has had recent travel. Does not sound like there is any concomitant illness that would point towards a COPD exacerbation but remains a consideration. She is not actively wheezing or coughing while I am with her but will continue to monitor. Consider congestive heart failure, ischemic disease. Reevaluation(s) Time of Reevaluation #1: 14:48 Reevaluation #1: Have reviewed patient's chest CT with her. 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 She will take her CT report, her primary may need to try to compare for have this further evaluated. As far as her dyspnea and shortness of breath, it is possible that it is COPD. We discussed trying empiric steroids which they would like to do. I do not see an indication for antibiotics at this time. Her troponin is normal, she has had days of symptoms and thus a solitary troponin should be sufficient. Triple viral swab is negative. Time of Reevaluation #2: 14:58 Reevaluation #2: Patient did subsequently asked nursing staff for muscle relaxant. She has had them in the past and believes this would help. Will put a prescription for tizanidine in. She can follow up with her primary this next week. Vital Signs Vital signs: Initial Vital Signs Temperature 98.2 F 10/30/24 11:42 Temperature Source Temporal Artery Scan 10/30/24 11:42 Pulse Rate 83 10/30/24 11:42 Pulse Rhythm Regular 10/30/24 11:42 Respiratory Rate 24 10/30/24 11:42 Blood Pressure 164/78 H 10/30/24 11:42 Blood Pressure Mean 106 H 10/30/24 11:42 Blood Pressure Position Semi-Fowlers 10/30/24 11:42 Pulse Oximetry 97 10/30/24 11:42 Oxygen Delivery Method Nasal Cannula 10/30/24 11:42 Oxygen Flow Rate 3 10/30/24 11:42 Vital Signs Temperature 98.2 F 10/30/24 11:42 Pulse Rate 83 10/30/24 11:42 Respiratory Rate 24 10/30/24 11:42 Blood Pressure 164/78 H 10/30/24 11:42 Pulse Oximetry 97 10/30/24 11:42 Oxygen Delivery Method Nasal Cannula 10/30/24 11:42 Oxygen Flow Rate 3 10/30/24 11:42 Temperature 98.2 F 10/30/24 11:42 Pulse Rate 82 10/30/24 14:00 Respiratory Rate 24 10/30/24 11:42 Blood Pressure 171/93 H 10/30/24 13:02 Pulse Oximetry 100 10/30/24 14:00 Oxygen Delivery Method Nasal Cannula 10/30/24 13:02 Oxygen Flow Rate 3 10/30/24 13:02 MDM - SOB/Dyspnea Lab Data Attestation: I reviewed the patient's lab results. Labs: Lab Results 10/30/24 Range/Units 12:25 WBC 5.38 (4.50-11.00) K/uL RBC 4.60 (4.00-5.20) m/uL Hgb 13.3 (12.0-16.0) gm/dL Hct 42.1 (33.0-51.0) % MCV 92 (80-100) fL MCH 29 (26-34) pg MCHC 32 (32-36) gm/dL RDW Coeff of Jennifer 13.3 (11.5-15.5) % Plt Count 153 (140-440) K/uL Neut % (Auto) 85.5 H (42.0-72.0) % Lymph % (Auto) 6.1 L (20-44) % Sharkey % (Auto) 6.7 (0.0-11.0) % Eos % (Auto) 1.1 (0.0-7.0) % Baso % (Auto) 0.4 (0.0-3.0) % Neut # (Auto) 4.60 (1.7-7.0) K/uL Lymph # (Auto) 0.30 L (0.90-2.90) K/uL Sharkey # (Auto) 0.40 (0.00-0.90) K/UL Eos # (Auto) 0.06 (0.00-0.50) K/uL Baso # (Auto) 0.02 (0.00-0.30) K/uL Abs Immat Gran (auto) 0.01 (0.00-0.30) K/uL Imm/Tot Granulo (auto) 0.2 % INR 0.96 (0.91-1.10) APTT 25 (23-33) Seconds D-Dimer Quant (PE/DVT) 0.91 H (0.00-0.50) ug/ml VBG pH 7.361 (7.32-7.43) VBG pCO2 52 H (40-50) mmHG VBG pO2 37.4 (25-47) mmHG VBG HCO3 30 H (21-28) mmol/L Sodium 140 (135-149) mmol/L Potassium 4.2 (3.6-5.1) mmol/L Chloride 104 (96-114) mmol/L Carbon Dioxide 29 (20-32) mmol/L Anion Gap 7 (7-15) mEq/L BUN 17 (7-30) mg/dL Creatinine 0.7 (0.5-1.5) mg/dL Estimated Creat Clear 48.45 Estimated GFR 94 ml/min Glucose 134 H (60-115) mg/dL Calcium 9.0 (8.4-10.6) mg/dL Magnesium 2.2 (1.5-2.6) mg/dL Total Bilirubin 0.7 (0.1-1.5) mg/dL AST 26 (12-35) U/L ALT 19 (4-35) U/L Alkaline Phosphatase 66 (40-150) U/L Troponin I < 0.01 L (0.01-0.04) ng/mL C-Reactive Protein < 0.5 L (0.5-1.0) mg/dL NT-Pro-B Natriuret Pep 146 pg/mL Total Protein 7.1 (6.0-8.3) g/dL Albumin 4.4 (3.3-5.0) g/dL SARS-CoV-2 (PCR) Negative SARS-CoV-2 (Negative) Influenza Type A (PCR) Negative PCR FLU A (Negative) Influenza Type B (PCR) Negative PCR FLU B (Negative) RSV (PCR) Negative PCR RSV (Negative) Imaging Data CT scan - chest: Attestation: I have reviewed the pertinent imaging results. Radiologist's impression: Patient: SANCHO GOMEZ Facility:?[facility] Patient ID:?[id number] Site Patient ID:?[id number]. Site :?[id number] Study:?CT-Chest Angio W/ 95CC ISOVUE-370 PE PROTOCOL-10/30/2024 1:27:28 PM Ordering Physician:Joseluis Devlin Final Report: INDICATION: Dyspnea. Chest pain. TECHNIQUE: Multiplanar CT pulmonary angiogram was performed after the administration of 100 mL of Omnipaque 350 intravenous contrast. COMPARISON: Chest radiographs 06/21/2024. FINDINGS: Lower neck: The visualized thyroid is unremarkable. Cardiovascular: Contrast opacification of the pulmonary arterial tree is adequate. Heart size is normal. Thoracic aorta and pulmonary artery are normal in caliber. Moderate atherosclerotic calcifications of the aortic arch. No significant coronary arterial calcifications. No pulmonary embolus. Mediastinum and lymph nodes: Prominent mediastinal and right hilar lymph nodes, indeterminate. Lungs: No focal consolidation. 2.2 cm right upper lobe pulmonary mass. Linear bandlike opacification of the lung bases bilaterally, likely subsegmental atelectasis and/or scarring. Airways: Trachea remains patent and midline. Mild diffuse peribronchial wall thickening. Pleura: No pleural effusions or pneumothorax. Chest wall: Unremarkable. Prominent axillary lymph nodes that do not meet size criteria for lymphadenopathy. Bones: No acute osseous abnormalities. Mild degenerative changes of the thoracic spine. No suspicious lytic or blastic lesions. Upper abdomen: Unremarkable. No reflux of contrast material into the IVC. IMPRESSION: 1. No pulmonary embolus. No CT evidence of right heart strain. 2. 2.2 cm right upper lobe mass, with prominent mediastinal and right hilar lymph nodes, suspicious for metastatic disease in this patient with given history of rectal carcinoma. Comparison with prior imaging if available may be beneficial. Recommend PET-CT or histologic tissue analysis for further evaluation. Please note that all CT scans at this facility use dose modulation, iterative reconstruction, and/or weight-based dosing when appropriate to reduce radiation dose to as low as reasonably achievable. Dictated by Joaquin Valente MD @ 10/30/2024 2:12:12 PM (Electronic Signature) ECG Data Attestation: I personally reviewed and interpreted this ECG as follows: (Sinus rhythm, 83 beats per minute. No evidence of any ischemia or infarct.) ECG interpretation date: 10/30/24 ECG interpretation time: 13:41 Prior ECG tracings: available for review (No significant change compared to EKG from 06/21/2024) Discharge Plan Discharge Clinical Impression: Increasing shortness of breath COPD (chronic obstructive pulmonary disease) Qualifiers: COPD type: unspecified COPD Qualified Code(s): J44.9 - Chronic obstructive pulmonary disease, unspecified Patient Disposition: Home, Self-Care Condition: Stable Instructions: COPD (Chronic Obstructive Pulmonary Disease) (ED) Additional Instructions: Try prednisone, see if it altered your symptoms at all; this could just be COPD. There is no evidence of infection at this time, no evidence of cardiac issues. We did not identify any blood clots/pulmonary emboli on CT imaging. Need to follow up in clinic this next week, make sure the lesion on the right side is indeed with consistent prior imaging of hamartoma. Otherwise, if you develop fevers, have progressive or significant worsening of shortness of breath or difficulty breathing, do recommend re-evaluation in the interim. Activity Level: Activity as Tolerated Prescriptions: New prednisone 20 mg tablet 20 mg PO BID Qty: 10 0RF tizanidine 2 mg tablet 2 mg PO Q8H PRN (Reason: muscle spasticity) Qty: 20 0RF No Action valsartan 160 mg tablet PO glipizide 2.5 mg tablet extended release 24hr 2.5 mg PO DAILY rosuvastatin 40 mg tablet 40 mg PO DAILY montelukast 10 mg tablet 10 mg PO DAILY potassium chloride 10 mEq tablet extended release 10 meq PO DAILY furosemide 20 mg tablet PO ammonium lactate 12 % lotion topical alendronate 10 mg tablet 10 mg PO DAILY albuterol sulfate 90 mcg/actuation HFA aerosol inhaler inhalation Yupelri 175 mcg/3 mL solution for nebulization 175 mcg inhalation QDAY dapagliflozin propanediol [Farxiga] PO acetaminophen-codeine 300-30 mg tablet 1 tab PO Q4-6H PRN (Reason: pain) Qty: 20 0RF cetirizine [Zyrtec] .ROUTE acetaminophen [Tylenol 8 Hour] PO albuterol sulfate 90 mcg/actuation HFA aerosol inhaler 2 puff inhalation Q4-6H PRN (Reason: shortness of breath or wheezing) Qty: 8.5 0RF tizanidine 2 mg tablet 2 mg PO Q8H PRN (Reason: muscle spasticity) Qty: 12 0RF Follow Up/Referrals: Kati Colin MD [Primary Care Provider] - Stand Alone Forms: [id number] Info Instructions
--- OUTSIDE RECORDS SUMMARY | 2024-10-30 12:21 | XMS_ITS | Encounter Summary ---
Author Organization [facility] Address [address] [place] [address] Care Team Providers Care Assembler Production Line Name Role Phone Kati Colin M.D. Primary Care Provider [phone] Encounter Details Date Type Department Care Team (Late st Contact Info) Description 10/06/2024 Patient Self-Triage [facility] Symptom Supervisor Ticket Sales, Provider Social History Tobacco Use Types Packs/Day Years Used Date Smoking Tobacco: Former Cigarettes Alcohol Use Standard Drinks/Week Comments Yes 2 (1 standard drink = 0.6 oz pur e alcohol) [facility] Utilities Answer Date Recorded In the past 12 months has [employer], gas, oil, or water [employer] threatened to shut off services in your [...] living situation today? I have a [facility] place to live 06/28/2024 Comments No Sex and Gender Information Value Date Recorded Sex Assigned at Female 05/07/2024 7:38 AM CDT Legal Sex Female 3:35 PM INSTRUMENT TECH Gender Identity Female 05/07/2024 7:38 AM CDT Sexual Orientation Straight 05/07/2024 7: 38 AM CDT documented as of this encounter Plan of Treatment Upcoming Encounters Date Type Department Care Team (Latest Contact Info) Description 11/01/2024 9:50 AM INSTRUMENT TECH Appointment Department of Laboratory Medicine in [address] [phone] Kati Colin M.D. [address] [place] [phone] 11/01/2024 10:10 AM INSTRUMENT TECH Appointment Department of Laboratory Medicine in [place], [place] [address] [place] [address] Kati Colin M.D. [address] [place] [phone] 11/03/2024 3:30 PM INSTRUMENT TECH Comprehensive Visit Department of Ophthalmology in [place], [place] [address] [phone] Hipolito Lynch M.D. [address] [place] [phone] 12/09/2024 9:30 AM CDT Appointment Department of Cardiovascular Diseases in [place], [place] [address] [place] [phone] Kati Colin M.D. [address] [place] [phone] Discharge Disposition: Home or Self Care 12/22/2024 10:30 AM CDT Clinical Communication Virtual Review in [place], [place] [address] [place] [address] 12/23/2024 10:00 AM CDT Diagnostic Division of Pulmonary Medicine in [place], [place] [address] [place] [phone] Margarita Martinez APRN, C.N.P., D.N.P. [address] [place] [phone] 12/23/2024 10:30 AM CDT Diagnostic Division of Pulmonary Medicine in [place], [place] [address] [place] [phone] Margarita Martinez APRN, C.N.P., D.N.P. [address] [place] [phone] 12/23/2024 11:30 AM CDT Office Visit Division of Pulmonary Medicine in [place], [place] [address] [place] [phone] Margarita Martinez APRN C.N.P., D.N.P. [address] [place] [phone] documented as of this encounter Visit Diagnoses Not on filedocumented in this encounter Care Teams Assembler Production Line Relationship Specialty Start Date End Date Kati Colin M.D. [address] [place] [address] [place] [phone] PCP - General Family Medicine 03/09/24 documented as of this encounter
--- OUTSIDE RECORDS SUMMARY | 2024-10-30 12:22 | XMS_ITS | Encounter Summary ---
Author Organization [facility] Address [address] [place] [address] Care Team Providers Care Is Project Manager Name Role Phone Kati Colin M.D. Primary Care Provider Encounter Details Date Type Department Care Team (Late st Contact Info) Description 10/29/2024 Patient Self-Triage [facility] Symptom Platen Builder Up, Provider Social History Tobacco Use Types Packs/Day Years Used Date Smoking Tobacco: Former Cigarettes 0.8 88.9 0 09/29/1969 - 08/23/2018 Smokeless Tobacco: Never Comments:Quit smoking severa l times for several months Alcohol Use Standard Drinks/Week Comments Yes 4 (1 standard drink = 0.6 oz pur e alcohol) [facility] Utilities Answer Date Recorded In the past 12 months has [employer], gas, oil, or water [employer] threatened to shut off services in your [...] your living situation today? I have a [facility] place to live 06/28/2024 Comments No Sex and Gender Information Value Date Recorded Sex Assigned at Female 05/07/2024 7:38 AM CDT Legal Sex Female 3:35 PM VICE PRESIDENT OF TALENT MANAGEMENT Gender Identity Female 05/07/2024 7:38 AM CDT Sexual Orientation Straight 05/07/2024 7: 38 AM CDT documented as of this encounter Plan of Treatment Upcoming Encounters Date Type Department Care Team (Latest Contact Info) Description 11/01/2024 9:50 AM VICE PRESIDENT OF TALENT MANAGEMENT Appointment Department of Laboratory Medicine in [address] [phone] Kati Colin M.D. [address] [place] [phone] 11/01/2024 10:10 AM VICE PRESIDENT OF TALENT MANAGEMENT Appointment Department of Laboratory Medicine in [address] [phone] Kati Colin M.D. [address] [place] [phone] 11/03/2024 3:30 PM VICE PRESIDENT OF TALENT MANAGEMENT Comprehensive Visit Department of Ophthalmology in [place], [place] [address] [place] [phone] Hipolito Lynch M.D. [address] [place] [phone] 12/09/2024 9:30 AM CDT Appointment Department of Cardiovascular Diseases in [place], [place] [address] [place] [address] Kati Colin M.D. [address] [place] [phone] Discharge Disposition: Home or Self Care 12/22/2024 10:30 AM CDT Clinical Communication Virtual Review in [place], [place] [address] [place] [phone] 12/23/2024 10:00 AM CDT Diagnostic Division of Pulmonary Medicine in [address] [phone] Margarita Martinez APRN, C.N.P., D.N.P. [address] [place] [phone] 12/23/2024 10:30 AM CDT Diagnostic Division of Pulmonary Medicine in [address] [phone] Margarita Martinez APRN, C.N.P., D.N.P. [address] [place] [phone] 12/23/2024 11:30 AM CDT Office Visit Division of Pulmonary Medicine in [address] [phone] Margarita Martinez APRN, C.N.P., D.N.P. [address] [place] [phone] documented as of this encounter Visit Diagnoses Not on filedocumented in this encounter Care Teams Is Project Manager Relationship Specialty Start Date End Date Kati Colin M.D. [address] [place] [phone] PCP - General Family Medicine 03/09/24 documented as of this encounter
--- OUTSIDE RECORDS SUMMARY | 2024-10-30 12:22 | XMS_ITS | Encounter Summary ---
Author Organization [facility] Address [address] [place] [address] Care Team Providers Care Project Management Consultant Name Role Phone Kati Colin M.D. Primary Care Provider [phone] Reason for Visit * Reason Onset Date Comments COPD 10/29/2024 Encounter Details Date Type Department Care Team (Late st Contact Info) Description 10/29/2024 Nurse Triage Department of Family Medicine, [facility], in [place], [place] [address] [place] [phone] Ellie Palencia R.N. [address] [place] [phone] COPD Social History Tobacco Use Types Packs/Day Years Used Date Smoking Tobacco: Former Cigarettes 0.8 88.9 0 09/29/1969 - 08/23/2018 Smokeless Tobacco: Never Comments:Quit smoking severa l times for several months Alcohol Use Standard Drinks/Week Comments Yes 4 (1 standard drink = 0.6 oz pur e alcohol) [facility] Utilities Answer Date Recorded [...] your living situation today? I have a [facility] place to live 06/28/2024 Comments No Sex and Gender Information Value Date Recorded Sex Assigned at Female 05/07/2024 7:38 AM CDT Legal Sex Female 3:35 PM WATER CONSERVATIONIST Gender Identity Female 05/07/2024 7:38 AM CDT Sexual Orientation Straight 05/07/2024 7: 38 AM CDT documented as of this encounter Miscellaneous Notes * Telephone Encounter - Ellie Palencia R.N. - 10/29/2024 5:02 PM WATER CONSERVATIONIST Chief Complaint / Reason for Call Patient [...] normal Protocols used: COPD Oxygen Monitoring and Tmgfmmh-Kptgc-OA Care Advice Patient/Caregiver understands and will follow care advice?: Yes, able to teach back COPD Oxygen Monitoring and Mdsykls-Ojzlh-UB Nurse Ellie Rodriguez Oct 29, 2024 05:25 PM Care Advice CALL BACK IF: * Fever higher than 100.4 F (38.0 C) * You become worse R CONSERVATIONIST documented in this encounter Plan of Treatment Upcoming Encounters Date Type Department Care Team (Latest Contact Info) Description 11/01/2024 9:50 AM WATER CONSERVATIONIST Appointment Department of Laboratory Medicine in [address] [phone] Kati Colin M.D. 300 [place] [address] 11/01/2024 10:10 AM WATER CONSERVATIONIST Appointment Department of Laboratory Medicine in [address] [phone] Kati Colin M.D. 300 [place] [address] 11/03/2024 3:30 PM WATER CONSERVATIONIST Comprehensive Visit Department of Ophthalmology in [place], [place] [address] [place] [phone] Hipolito Lynch M.D. [address], [place] [phone] 12/09/2024 9:30 AM CDT Appointment Department of Cardiovascular Diseases in [place], [place] [address] [place] [phone] Kati Colin M.D. [address] [place] [phone] Discharge Disposition: Home or Self Care 12/22/2024 10:30 AM CDT Clinical Communication Virtual Review in [place], [place] 200 [place] [address] 12/23/2024 10:00 AM CDT Diagnostic Division of Pulmonary Medicine in [place], [place] [address] [place] [phone] Margarita Martinez APRN, C.N.P., D.N.P. [address] [place] [phone] 12/23/2024 10:30 AM CDT Diagnostic Division of Pulmonary Medicine in [address] [phone] Margarita Martinez APRN, C.N.P., D.N.P. [address] [place] [phone] 12/23/2024 11:30 AM CDT Office Visit Division of Pulmonary Medicine in [place], [place] [address] [place] [phone] Margarita Martinez APRN, C.N.P., D.N.P. [address] [place] [phone] documented as of this encounter Visit Diagnoses Not on filedocumented in this encounter Care Teams Project Management Consultant Relationship Specialty Start Date End Date Kati Colin M.D. [address] [place] [phone] PCP - General Family Medicine 03/09/24 documented as of this encounter
--- OUTSIDE RECORDS SUMMARY | 2024-10-30 12:22 | XMS_ITS | Continuity of Care Document ---
Author Organization [facility] Address [address] [place] [address] Phone Care Team Providers Care Pipe Line Repairer Name Role Phone Rafat Villavicencio MD, FACS [...] Diagnoses Date Provider Providers Copied on Encounter [facility], [address] [place] [address], [id number], [place] tel:[phone] [facility] 5 Saud Douglass. [address] [place] [address], [id number], [place]. tel:[phone] Referring Provider: Rafat Saud, [address] [place] [address], [phone] . tel:[phone] Offic Cons New/estab Mod [facility], [facility] [place], [place], [id number], tel:[phone] [facility] No Information 7 No Information Family History Family Member Type Diagnosis Age At Onset No Information Payers Payer name Insurance type Covered green party ID Gómez yepez(s) [employer] [facility] [id number] Social History Type Description Quantity Date Captured [...]
--- OUTSIDE RECORDS SUMMARY | 2024-10-30 12:22 | XMS_ITS | Encounter Summary ---
Author Organization [facility] Address [address] [place] [address] Care Team Providers Care Supervisor Mold Construction Name Role Phone Kati Colin M.D. Primary Care Provider Reason for Visit * Reason Comments Nurse Visit Home machine B/P thania ck. Encounter Details Date Type Department Care Team (Late st Contact Info) Description 10/11/2024 11:15 AM COLD PATCHER Nurse Only Department of Family Medicine, [facility], in [address] [phone] Gracy Barrientos, L.P.N. [address] [phone] Nurse Visit (Home machine B/P check.) Social History Tobacco Use Types Packs/Day Years Used Date Smoking Tobacco: Former Cigarettes 0.8 88.9 0 09/29/1969 - 08/23/2018 Smokeless Tobacco: Never Comments:Quit smoking severa l times for several months Alcohol Use Standard Drinks/Week Comments Yes 4 (1 standard drink = 0.6 oz pur e alcohol) [facility] Utilities Answer Date Recorded In the [...] your living situation today? I have a [facility] place to live 06/28/2024 Comments No Sex and Gender Information Value Date Recorded Sex Assigned at Female 05/07/2024 7:38 AM CDT Legal Sex Female 3:35 PM COLD PATCHER Gender Identity Female 05/07/2024 7:38 AM CDT Sexual Orientation Straight 05/07/2024 7: 38 AM CDT documented as of this encounter Last Filed Vital Signs Vital Sign Reading Time Taken Comments Blood Pressure 110/70 10/11/2024 12:02 PM COLD PATCHER Pulse 70 10/11/2024 12:02 PM COLD PATCHER Temperature - - Respiratory Rate 20 10/11/2024 12:02 PM COLD PATCHER Oxygen Saturation - - Inhaled Oxygen Concentration [...] blood pressure monitoring device or contact the freight loader for replacement if still under warranty. The manual blood pressure readings taken during the test were as follows: 118/69 P 72, 120/68 P 74, 121/74 P 72.. PATCHER documented in this encounter Plan of Treatment Upcoming Encounters Date Type Department Care Team (Latest Contact Info) Description 11/01/2024 9:50 AM COLD PATCHER Appointment Department of Laboratory Medicine in [address] [phone] Kati Colin M.D. [address] [place] [phone] 11/01/2024 10:10 AM COLD PATCHER Appointment Department of Laboratory Medicine in [address] [phone] Kati Colin M.D. 300 [place] [address] 11/03/2024 3:30 PM COLD PATCHER Comprehensive Visit Department of Ophthalmology in [place], [place] [address] [place] [address] Hipolito Lynch M.D. [address] [place] [phone] 12/09/2024 9:30 AM CDT Appointment Department of Cardiovascular Diseases in [place], [place] [address] [place] [address] Kati Colin M.D. [address] [place] [phone] Discharge Disposition: Home or Self Care 12/22/2024 10:30 AM CDT Clinical Communication Virtual Review in [place], [place] 200 [place] [address] 12/23/2024 10:00 AM CDT Diagnostic Division of Pulmonary Medicine in [address] [phone] Margarita Martinez APRN, C.N.P., D.N.P. [address] [place] [phone] 12/23/2024 10:30 AM CDT Diagnostic Division of Pulmonary Medicine in [address] [phone] Margarita Martinez APRN, C.N.P., D.N.P. [address] [place] [phone] 12/23/2024 11:30 AM CDT Office Visit Division of Pulmonary Medicine in [address] [phone] Margarita Martinez APRN, C.N.P., D.N.P. [address] [place] [phone] documented as of this encounter Visit Diagnoses Diagnosis Hypertension Essential Primary- Primary documented in this encounter Care Teams Supervisor Mold Construction Relationship Specialty Start Date End Date Kati Colin M.D. [address] [place] [phone] PCP - General Family Medicine 03/09/24 documented as of this encounter
--- OUTSIDE RECORDS SUMMARY | 2024-10-30 12:22 | XMS_ITS | Encounter Summary ---
Author Organization [facility] Address [address] [place] [address] Care Team Providers Care Area Field Manager Name Role Phone Kati Colin M.D. Primary Care Provider [phone] Reason for Visit * Reason Onset Date Comments Med Refill 10/11/2024 Encounter Details Date Type Department Care Team (Late st Contact Info) Description 10/11/2024 Refill Department of Family Medicine, [facility], in [place], [place] 300 [place] [address] Kati Colin M.D. 300 [place] [address] Med Refill Social History Tobacco Use Types Packs/Day Years Used Date Smoking Tobacco: Former Cigarettes 0.8 88.9 0 09/29/1969 - 08/23/2018 Smokeless Tobacco: Never Comments:Quit smoking severa l times for several months Alcohol Use Standard Drinks/Week Comments Yes 4 (1 standard drink = 0.6 oz pur e alcohol) [facility] Utilities Answer Date Recorded In the past 12 months has [employer] electric, gas, oil, or water company threatened [...] your living situation today? I have a [facility] place to live 06/28/2024 Comments No Sex and Gender Information Value Date Recorded Sex Assigned at Female 05/07/2024 7:38 AM CDT Legal Sex Female 3:35 PM AUDITING CODER Gender Identity Female 05/07/2024 7:38 AM CDT Sexual Orientation Straight 05/07/2024 7: 38 AM CDT documented as of this encounter Plan of Treatment Upcoming Encounters Date Type Department Care Team (Latest Contact Info) Description 11/01/2024 9:50 AM AUDITING CODER Appointment Department of Laboratory Medicine in [place], [place] [address] [place] [phone] Kati Colin M.D. 300 [place] [address] 11/01/2024 10:10 AM AUDITING CODER Appointment Department of Laboratory Medicine in [place], [place] 300 [place] [phone] Kati Colin M.D. 300 [place] [phone] 11/03/2024 3:30 PM AUDITING CODER Comprehensive Visit Department of Ophthalmology in [place], [place] [address] [place] [phone] Hipolito Lynch M.D. [address] [phone] 12/09/2024 9:30 AM CDT Appointment Department of Cardiovascular Diseases in [place], [place] [address] [phone] Kati Colin M.D. 300 [place] [phone] Discharge Disposition: Home or Self Care 12/22/2024 10:30 AM CDT Clinical Communication Virtual Review in [place], [place] 200 [place] [address] 12/23/2024 10:00 AM CDT Diagnostic Division of Pulmonary Medicine in [place], [place] [address] [place] [phone] Margarita Martinez APRN, C.N.P., D.N.P. [address] [place] [phone] 12/23/2024 10:30 AM CDT Diagnostic Division of Pulmonary Medicine in [place], [place] [address] [place] [phone] Margarita Martinez APRN, C.N.P., D.N.P. [address] [place] [address] 12/23/2024 11:30 AM CDT Office Visit Division of Pulmonary Medicine in [place], [place] [address] [place] [address] Margarita Martinez, LOREN, C.N.P., D.N.P. [address] [place] [phone] documented as of this encounter Visit Diagnoses Not on filedocumented in this encounter Care Teams Area Field Manager Relationship Specialty Start Date End Date Kati Colin M.D. [address] [place] [phone] PCP - General Family Medicine 03/09/24 documented as of this encounter
--- OUTSIDE RECORDS SUMMARY | 2024-10-30 12:22 | XMS_ITS | Encounter Summary ---
Author Organization [facility] Address [address] [place] [address] Care Team Providers Care Dietetic Technician Registered Name Role Phone Kati Colin M.D. Primary Care Provider Reason for Visit * Reason Onset Date Comments Med Refill 09/30/2024 Encounter Details Date Type Department Care Team (Late st Contact Info) Description 09/30/2024 Refill Division of Pulmonary Medicine in [place], [place] [address] [place] [phone] Margarita Martinez, LOREN, C.N.P., D.N.P. [address] [place] [phone] Med Refill Social History Tobacco Use Types Packs/Day Years Used Date Smoking Tobacco: Former Cigarettes Alcohol Use Standard Drinks/Week Comments Yes 2 (1 standard drink = 0.6 oz pur e alcohol) [facility] Utilities Answer Date Recorded In [...] your living situation today? I have a [facility] place to live 06/28/2024 Comments No Sex and Gender Information Value Date Recorded Sex Assigned at Female 05/07/2024 7:38 AM CDT Legal Sex Female 3:35 PM SCOURER Gender Identity Female 05/07/2024 7:38 AM CDT Sexual Orientation Straight 05/07/2024 7: 38 AM CDT documented as of this encounter Plan of Treatment Upcoming Encounters Date Type Department Care Team (Latest Contact Info) Description 11/01/2024 9:50 AM SCOURER Appointment Department of Laboratory Medicine in [address] [phone] Kati Colin M.D. [address] [place] [phone] 11/01/2024 10:10 AM SCOURER Appointment Department of Laboratory Medicine in [address] [place] [phone] Kati Colin M.D. 300 [place] [phone] 11/03/2024 3:30 PM SCOURER Comprehensive Visit Department of Ophthalmology in [place], [place] [address] [place] [phone] Hipolito Lynch M.D. [address] [place] [phone] 12/09/2024 9:30 AM CDT Appointment Department of Cardiovascular Diseases in [place], [place] [address] [place] [phone] Kati Colin M.D. 300 [place] [phone] Discharge Disposition: Home or Self Care 12/22/2024 10:30 AM CDT Clinical Communication Virtual Review in [place], [place] 200 [place] [address] 12/23/2024 10:00 AM CDT Diagnostic Division of Pulmonary Medicine in [address] [phone] Margarita Martinez APRN, C.N.P., D.N.P. [address] [place] [phone] 12/23/2024 10:30 AM CDT Diagnostic Division of Pulmonary Medicine in [address] [phone] Margarita Martinez APRN, C.N.P., D.N.P. [address] [place] [phone] 12/23/2024 11:30 AM CDT Office Visit Division of Pulmonary Medicine in [place], [place] [address] [place] [address] Margarita Martinez, LOREN, C.N.P., D.N.P. [address] [place] [address] documented as of this encounter Visit Diagnoses Diagnosis Chronic Obstructive Pulmonary Disease Without Exacerbation (HCC) documented in this encounter Care Teams Dietetic Technician Registered Relationship Specialty Start Date End Date Kati Colin M.D. [address] [place] [phone] PCP - General Family Medicine 03/09/24 documented as of this encounter
--- OUTSIDE RECORDS SUMMARY | 2024-10-30 12:22 | XMS_ITS | Encounter Summary ---
Author Organization [facility] Address [address] [place] [address] Care Team Providers Care Glass Cut Off Tender Name Role Phone Kati Colin M.D. Primary Care Provider [phone] Encounter Details Date Type Department Care Team (Late st Contact Info) Description 10/12/2024 Orders Only Department of Family Medicine, [facility], in [place], [place] 300 [place] [address] Kati Colin M.D. 300 [place] [phone] Screening Cancer Colon Social History Tobacco Use Types Packs/Day Years Used Date Smoking Tobacco: Former Cigarettes 0.8 88.9 0 09/29/1969 - 08/23/2018 Smokeless Tobacco: Never Comments:Quit smoking severa l times for several months Alcohol Use Standard Drinks/Week Comments Yes 4 (1 standard drink = 0.6 oz pur e alcohol) [facility] Utilities Answer Date Recorded In [...] your living situation today? I have a [facility] place to live 06/28/2024 Comments No Sex and Gender Information Value Date Recorded Sex Assigned at Female 05/07/2024 7:38 AM CDT Legal Sex Female 3:35 PM NUCLEAR AUXILIARY OPERATOR Gender Identity Female 05/07/2024 7:38 AM CDT Sexual Orientation Straight 05/07/2024 7: 38 AM CDT documented as of this encounter Plan of Treatment Upcoming Encounters Date Type Department Care Team (Latest Contact Info) Description 11/01/2024 9:50 AM NUCLEAR AUXILIARY OPERATOR Appointment Department of Laboratory Medicine in [place], [place] 300 [place] [phone] Kati Colin M.D. 300 [place] [phone] 11/01/2024 10:10 AM NUCLEAR AUXILIARY OPERATOR Appointment Department of Laboratory Medicine in [place], [place] 300 [place] [phone] Kati Colin M.D. 300 [place] [phone] 11/03/2024 3:30 PM NUCLEAR AUXILIARY OPERATOR Comprehensive Visit Department of Ophthalmology in [place], [place] [address] [phone] Hipolito Lynch M.D. [address] [phone] 12/09/2024 9:30 AM CDT Appointment Department of Cardiovascular Diseases in [place], [place] [address] [place] [phone] Kati Colin M.D. 300 [place] [phone] Discharge Disposition: Home or Self Care 12/22/2024 10:30 AM CDT Clinical Communication Virtual Review in [place], [place] 200 [place] [address] 12/23/2024 10:00 AM CDT Diagnostic Division of Pulmonary Medicine in [address] [phone] Margarita Martinez APRN, C.N.P., D.N.P. [address] [place] [phone] 12/23/2024 10:30 AM CDT Diagnostic Division of Pulmonary Medicine in [address] [phone] Margarita Martinez APRN, C.N.P., D.N.P. [address] [place] [phone] 12/23/2024 11:30 AM CDT Office Visit Division of Pulmonary Medicine in [place], [place] [address] [place] [address] Margarita Martinez, LOREN, C.N.P., D.N.P. [address] [place] [phone] documented as of this encounter Visit Diagnoses Diagnosis Screening Cancer Colon documented in this encounter Care Teams Glass Cut Off Tender Relationship Specialty Start Date End Date Kati Colin M.D. [address] [place] [phone] PCP - General Family Medicine 03/09/24 documented as of this encounter
--- OUTSIDE RECORDS SUMMARY | 2024-10-30 12:22 | XMS_ITS | Encounter Summary ---
Author Organization [facility] Address [address] [place] [address] Care Team Providers Care Manager Military Name Role Phone Kati Colin M.D. Primary Care Provider Reason for Visit * Reason Onset Date Comments Results 10/11/2024 Encounter Details Date Type Department Care Team (Late st Contact Info) Description 10/11/2024 Clinical Communication Department of Family Medicine, [facility], in [place], [place] 300 [place] [address] Kati Colin M.D. 300 [place] [phone] Results Social History Tobacco Use Types Packs/Day Years Used Date Smoking Tobacco: Former Cigarettes 0.8 88.9 0 09/29/1969 - 08/23/2018 Smokeless Tobacco: Never Comments:Quit smoking severa l times for several months Alcohol Use Standard Drinks/Week Comments Yes 4 (1 standard drink = 0.6 oz pur e alcohol) [facility] Utilities Answer Date Recorded In the past 12 months has [email or web address] electric, gas, oil, or water company threatened [...] your living situation today? I have a [facility] place to live 06/28/2024 Comments No Sex and Gender Information Value Date Recorded Sex Assigned at Female 05/07/2024 7:38 AM CDT Legal Sex Female 3:35 PM PHARMACY HELPER Gender Identity Female 05/07/2024 7:38 AM CDT Sexual Orientation Straight 05/07/2024 7: 38 AM CDT documented as of this encounter Miscellaneous Notes * Telephone Encounter - Luz Marina Loving, C.M.A. - 10/12/2024 8:59 AM PHARMACY HELPER SUBJECTIVE CHIEF COMPLAINT / REASON FOR CALL Results Information Discussed Guy and informed patient of results and recommendations per Dr. Dixie M.D. PLAN Disposition/Recommendation: self-care . appropriate at this time, patient encouraged to call back with questions Information/Education: patient/caller able to teach back Caller agreeable to plan of care: yes The following references were used: provider Dr. Dixie M.D. MACY HELPER * Telephone Encounter - Gracy Barrientos L.P.N. - 10/11/2024 4:55 PM PHARMACY HELPER ----- Message from Kati Colin M.D. sent at 10/11/2024 4:51 PM PHARMACY HELPER ----- Please reassure the patient that chest x-ray showed no infection. No antibiotics as needed. Proceedwith the treatment as we discussed during her visit with prednisone and the inhalers. MACY HELPER documented in this encounter Plan of Treatment Upcoming Encounters Date Type Department Care Team (Latest Contact Info) Description 11/01/2024 9:50 AM PHARMACY HELPER Appointment Department of Laboratory Medicine in [address] [phone] Kati Colin M.D. [address] [place] [phone] 11/01/2024 10:10 AM PHARMACY HELPER Appointment Department of Laboratory Medicine in [address] [phone] Kati Colin M.D. [address] [place] [phone] 11/03/2024 3:30 PM PHARMACY HELPER Comprehensive Visit Department of Ophthalmology in [place], [place] [address] [place] [phone] Hipolito Lynch M.D. [address] [place] [phone] 12/09/2024 9:30 AM CDT Appointment Department of Cardiovascular Diseases in [place], [place] [address] [place] [phone] Kati Colin M.D. 300 [place] [address] Discharge Disposition: Home or Self Care 12/22/2024 10:30 AM CDT Clinical Communication Virtual Review in [place], [place] 200 [place] [address] 12/23/2024 10:00 AM CDT Diagnostic Division of Pulmonary Medicine in [address] [phone] Margarita Martinez APRN, C.N.P., D.N.P. [address] [place] [phone] 12/23/2024 10:30 AM CDT Diagnostic Division of Pulmonary Medicine in [address] [phone] Margarita Martinez APRN, C.N.P., D.N.P. [address] [place] [phone] 12/23/2024 11:30 AM CDT Office Visit Division of Pulmonary Medicine in [address] [phone] Margarita Martinez APRN, C.N.P., D.N.P. [address] [place] [phone] documented as of this encounter Visit Diagnoses Not on filedocumented in this encounter Care Teams Manager Military Relationship Specialty Start Date End Date Kati Colin M.D. [address] [place] [phone] PCP - General Family Medicine 03/09/24 documented as of this encounter
--- OUTSIDE RECORDS SUMMARY | 2024-10-30 12:22 | XMS_ITS | Encounter Summary ---
Author Organization [facility] Address [address] [place] [address] Care Team Providers Care Professor Of Environmental Engineering Name Role Phone Kati Colin M.D. Primary Care Provider [phone] Reason for Referral * Outpatient (Routine) - Closed Specialty Diagnoses / Procedures Referred By Phani cruz Referred To Contact Diagnoses Chronic Obstructive Pulmonary Disease Without Exacerbation (HCC) Procedures DX Chest AP or PA and Lateral 2 Views Kati Colin M.D. [address] [place] [address] Phone: tel: fax: [facility] Region Referral ID Status Reason Start Date Expiration Date Visits Re quested Visits Authorized [id number] Closed 10/11/2024 10/11/2025 [facility] Reason for Visit * Outpatient (Routine) - Closed Specialty Diagnoses / Procedures Referred By Phani cruz Referred To Contact Diagnoses Chronic Obstructive Pulmonary Disease Without Exacerbation (HCC) Procedures DX Chest AP or PA and Lateral 2 Views Kati Colin M.D. [address] [place] [address] Phone: tel: fax: [facility] Region Referral ID Status Reason Start Date Expiration Date Visits Re quested Visits Authorized [id number] Closed 10/11/2024 10/11/2025 1 1 Encounter Details Date Type Department Care Team (Latest Contact Info) Description 10/11/2024 11:43 AM ROLLER SHOP UTILITY WORKER - 10/11/2024 11:59 PM ROLLER SHOP UTILITY WORKER Hospital Encounter Department of Radiology in [place], [place] [address] [facility] [place] [address] Kati Colin M.D. [address] [place] [address] Chronic Obstructive Pulmonary Disease Without Exacerbation (HCC) Discharge Disposition: Home or Self Care Social History Tobacco Use Types Packs/Day Years Used Date Smoking Tobacco: Former Cigarettes 0.8 88.9 0 09/29/1969 - 08/23/2018 Smokeless Tobacco: Never Comments:Quit smoking severa l times for several months Alcohol Use Standard Drinks/Week Comments Yes 4 (1 standard drink = 0.6 oz pur e alcohol) [facility] Utilities Answer Date Recorded In the past 12 months has e electric, gas, oil, or water [employer] threatened to shut off services in your [...] your living situation today? I have a [facility] place to live 06/28/2024 Comments No Sex and Gender Information Value Date Recorded Sex Assigned at Female 05/07/2024 7:38 AM CDT Legal Sex Female 3:35 PM ROLLER SHOP UTILITY WORKER Gender Identity Female 05/07/2024 7:38 AM CDT [...] 80 mg by mouth daily. 12/25/2023 vitamins A,C,M-qdvp-ncgzzi (PreserVision AREDS) 7,160 Units-113 mg-100 Units per tablet Take 1 tablet by mouth 2 (two) times a day. predniSONE (Deltasone) 20 mg tablet Take 1 tablet (20 mg total) by mouth daily for 5 days. 5 tablet 10/11/2024 5 documented as of this encounter Plan of Treatment Upcoming Encounters Date Type Department Care Team (Latest Contact Info) Description 11/01/2024 9:50 AM ROLLER SHOP UTILITY WORKER Appointment Department of Laboratory Medicine in [address] [phone] Kati Colin M.D. [address] [place] [phone] 11/01/2024 10:10 AM ROLLER SHOP UTILITY WORKER Appointment Department of Laboratory Medicine in [address] [phone] Kati Colin M.D. [address] [place] [phone] 11/03/2024 3:30 PM ROLLER SHOP UTILITY WORKER Comprehensive Visit Department of Ophthalmology in [place], [place] [address] [phone] Hipolito Lynch M.D. [address] [phone] 12/09/2024 9:30 AM CDT Appointment Department of Cardiovascular Diseases in [place], [place] [address] [place] [address] Kati Colin M.D. [address] [place] [phone] Discharge Disposition: Home or Self Care 12/22/2024 10:30 AM CDT Clinical Communication Virtual Review in [place], [place] 200 [place] [address] 12/23/2024 10:00 AM CDT Diagnostic Division of Pulmonary Medicine in [address] [phone] Margarita Martinez APRN, C.N.P., D.N.P. [address] [place] [phone] 12/23/2024 10:30 AM CDT Diagnostic Division of Pulmonary Medicine in [address] [phone] Margarita Martinez APRN, C.N.P., D.N.P. [address] [place] [phone] 12/23/2024 11:30 AM CDT Office Visit Division of Pulmonary Medicine in [address] [phone] Margarita Martinez APRN, C.N.P., D.N.P. [address] [place] [phone] documented as of this encounter Procedures Procedure Name Priority Date/Time Associated Diagnosis Comments DX CHEST AP OR PA AND LATERAL 2 VIEWS RAD - Routine (most inpatients and all outpatients) 10/11/2024 11:53 AM ROLLER SHOP UTILITY WORKER Chronic Obstructive Pulmonary Disease Without Exacerbation (HCC) documented in this encounter Results * DX Chest AP or PA and Lateral 2 Views (10/11/2024 11:53 AM ROLLER SHOP UTILITY WORKER) Anatomical Region Laterality Modality Chest, Thoracic RST LOS, Tho racic ARZ LOS, Thoracic FLA LOS N/A Digital Radiography Impressions 10/11/2024 12:07 PM ROLLER SHOP UTILITY WORKER No focal consolidation or pleural effusion size. PFO closure device. Atherosclerotic vascular disease. Indeterminate nodular opacity of the right upper lung, not significantly changed in size from prior CT when accounting for differences in modality. Postoperative changes wedge resection of the right upper lung. Narrative 10/11/2024 12:07 PM ROLLER SHOP UTILITY WORKER EXAM: DX CHEST AP OR PA AND [...] us Kati Colin M.D. IM DIAGNOSTIC IMAGING [facility] Final Result documented in this encounter Visit Diagnoses Diagnosis Chronic Obstructive Pulmonary Disease Without Exacerbation (HCC) documented in this encounter Care Teams Professor Of Environmental Engineering Relationship Specialty Start Date End Date Kati Colin M.D. [address] [place] [phone] PCP - General Family Medicine 03/09/24 documented as of this encounter
--- OUTSIDE RECORDS SUMMARY | 2024-10-30 12:22 | XMS_ITS | Encounter Summary ---
Author Organization [facility] Address [address] [place] [address] Care Team Providers Care Oil And Gas Superintendent Name Role Phone Kati Colin M.D. Primary Care Provider Reason for Visit * Reason Onset Date Comments Chest Pain 10/30/2024 Encounter Details Date Type Department Care Team (Late st Contact Info) Description 10/30/2024 Nurse Triage Department of Family Medicine, [facility], in [place], [place] [address] [place] [address] Chichi Noel, R.N. Chest Pain Social History Tobacco Use Types Packs/Day Years Used Date Smoking Tobacco: Former Cigarettes 0.8 88.9 0 09/29/1969 - 08/23/2018 Smokeless Tobacco: Never Comments:Quit smoking severa l times for several months Alcohol Use Standard Drinks/Week Comments Yes 4 (1 standard drink = 0.6 oz pur e alcohol) [facility] Utilities Answer Date Recorded In the [...] your living situation today? I have a [facility] place to live 06/28/2024 Comments No Sex and Gender Information Value Date Recorded Sex Assigned at Female 05/07/2024 7:38 AM CDT Legal Sex Female 3:35 PM COLD REDUCTION ROLLER Gender Identity Female 05/07/2024 7:38 AM CDT [...] relaxed during call. Recent plane trip to/from [place] on 10/19/24, symptoms worsened shortly after. Present for: worse the past wk. Noted hx of rib fracture. Home cares tried: Tylenol arthritis, neb-helps. Calling to request: appt this afternoon The recommended disposition is Go to ED Now. Reason for Disposition Long-distance travel in past month (e.g., car, bus, train, plane; with trip lasting 6 or more hours) Protocols used: Chest Wmeg-Bchkt-LQ Care Advice Patient/Caregiver understands and will follow care advice?: Yes, able to teach back Chest Ytzv-Jeikr-MG Nurse Chichi Ulrich Oct 30, 2024 09:31 [...] weak to stand * You become worse REDUCTION ROLLER documented in this encounter Plan of Treatment Upcoming Encounters Date Type Department Care Team (Latest Contact Info) Description 11/01/2024 9:50 AM COLD REDUCTION ROLLER Appointment Department of Laboratory Medicine in [address] [phone] Kati Colin M.D. [address] [place] [address] 11/01/2024 10:10 AM COLD REDUCTION ROLLER Appointment Department of Laboratory Medicine in [address] [phone] Kati Colin M.D. 300 [place] [phone] 11/03/2024 3:30 PM COLD REDUCTION ROLLER Comprehensive Visit Department of Ophthalmology in [place], [place] [address] [place] [address] Hipolito Lynch M.D. [address] [place] [phone] 12/09/2024 9:30 AM CDT Appointment Department of Cardiovascular Diseases in [place], [place] [address] [phone] Kati Colin M.D. [address] [place] [phone] Discharge Disposition: Home or Self Care 12/22/2024 10:30 AM CDT Clinical Communication Virtual Review in [place], [place] 200 [place] [address] 12/23/2024 10:00 AM CDT Diagnostic Division of Pulmonary Medicine in [address] [phone] Margarita Martinez APRN, C.N.P., D.N.P. [address] [place] [phone] 12/23/2024 10:30 AM CDT Diagnostic Division of Pulmonary Medicine in [address] [phone] Margarita Martinez APRN C.N.P., D.N.P. [address] [place] [phone] 12/23/2024 11:30 AM CDT Office Visit Division of Pulmonary Medicine in [address] [phone] Margarita Martinez APRN, C.N.P., D.N.P. [address] [place] [phone] documented as of this encounter Visit Diagnoses Not on filedocumented in this encounter Care Teams Oil And Gas Superintendent Relationship Specialty Start Date End Date Kati Colin M.D. [address] [place] [address] [place] [phone] PCP - General Family Medicine 03/09/24 documented as of this encounter
--- OUTSIDE RECORDS SUMMARY | 2024-10-30 12:22 | XMS_ITS | Encounter Summary ---
Author Organization [facility] Address [address] [place] [address] Care Team Providers Care Career Technical Supervisor Name Role Phone Kati Colin M.D. Primary Care Provider [phone] Reason for Referral * Outpatient (Routine) - Authorized Specialty Diagnoses / Procedures Referred By Contac t Referred To Contact Kati Colin M.D. [address] [place] [address] Phone: tel: fax: [facility] Region Referral ID Status Reason Start Date Expiration Date V isits Requested Visits Authorized [id number] Authorized 09/10/2024 03/12/2026 1 1 ER WORKER HELPER Reason for Visit * Reason Onset Date Comments Quality 09/08/2024 D5; HTN, Colorec aaron Encounter Details Date Type Department Care Team (Latest Contact Info) Description 09/08/2024 Clinical Communication Department of Family Medicine, [facility], in [place], [place] 300 [place] [address] Susie Cheng, R.N. Quality (D5; HTN, Colorectal) Social History Tobacco Use Types Packs/Day Years Used Date Smoking Tobacco: Former Cigarettes Alcohol Use Standard Drinks/Week Comments Yes 2 (1 standard drink = 0.6 oz pur e alcohol) [facility] Utilities Answer Date Recorded In [...] your living situation today? I have a [facility] place to live 06/28/2024 Comments No Sex and Gender Information Value Date Recorded Sex Assigned at Female 05/07/2024 7:38 AM CDT Legal Sex Female 3:35 PM BEATER WORKER HELPER Gender Identity Female 05/07/2024 7:38 AM CDT Sexual Orientation Straight 05/07/2024 7: 38 AM CDT documented as of this encounter Plan of Treatment Upcoming Encounters Date Type Department Care Team (Latest Contact Info) Description 11/01/2024 9:50 AM BEATER WORKER HELPER Appointment Department of Laboratory Medicine in [address] [phone] Kati Colin M.D. [address] [place] [phone] 11/01/2024 10:10 AM BEATER WORKER HELPER Appointment Department of Laboratory Medicine in [address] [phone] Kati Colin M.D. [address] [place] [phone] 11/03/2024 3:30 PM BEATER WORKER HELPER Comprehensive Visit Department of Ophthalmology in [place], [place] [address] [phone] Hipolito Lynch M.D. [address] [place] [phone] 12/09/2024 9:30 AM CDT Appointment Department of Cardiovascular Diseases in [place], [place] [address] [phone] Kati Colin M.D. [address] [place] [phone] Discharge Disposition: Home or Self Care 12/22/2024 10:30 AM CDT Clinical Communication Virtual Review in [place], [place] 200 [place] [address] 12/23/2024 10:00 AM CDT Diagnostic Division of Pulmonary Medicine in [address] [phone] Margarita Martinez, LOREN, C.N.P., D.N.P. [address] [place] [phone] 12/23/2024 10:30 AM CDT Diagnostic Division of Pulmonary Medicine in [place], [place] [address] [place] [address] Margarita Martinez APRN, C.N.P., D.N.P. [address] [place] [phone] 12/23/2024 11:30 AM CDT Office Visit Division of Pulmonary Medicine in [place], [place] [address] [place] [address] Margarita Martinez APRN, C.N.P., D.N.P. [address] [place] [phone] Scheduled Referrals Name Type Priority Associated Diagnoses Orde r Schedule Primary Care nurse visit (clinic) - [facility] Region; BP check; BP check only (MOTORIZED SQUAD CAPTAIN) Outpatient Referral Routine Expected: 09/17/2024, Expires: 12/09/2025 documented as of this encounter Visit Diagnoses Not on filedocumented in this encounter Care Teams Career Technical Supervisor Relationship Specialty Start Date End Date Kati Colin M.D. [address] [place] [phone] PCP - General Family Medicine 03/09/24 documented as of this encounter
--- OUTSIDE RECORDS SUMMARY | 2024-10-30 12:22 | XMS_ITS | Clinical Summary ---
Author Organization [facility] Address [address] [place] [address] Care Team Providers Care Building Certifier Name Role Phone Kati Colin M.D. Primary Care Provider Source Comments Patient records contain information from all sites at [facility]. For routine questions regarding patient records, call [phone] during business hours, M-F 8:00 AM - 5:00 PM Central Time. Record requests for emergency care only can be directed to [phone] at any time.[facility] Allergies Active Allergy Reactions Criticality Noted Date [...] - gummies or chocolate bar Active vitamins A,C,V-hxos-yezhc r (PreserVision AREDS) 7,160 Units-113 mg-100 Units [...] Team Description 10/30/2024 Nurse Triage Department of [facility], in [address] [phone] Chichi Noel, R.N. Chest Pain 10/29/2024 Nurse Triage Department of [facility], in [address] [phone] Ellie Palencia, RGuilleN. COPD 10/29/2024 Patient Self-Triage [facility] Symptom Hair Specialist, Provider 10/12/2024 Orders Only Department of [facility], in [address] [phone] Kati Colin M.D. Screening Cancer Colon 10/11/2024 11:43 AM SENIOR BIOSTATISTICIAN - 10/11/2024 11:59 PM SENIOR BIOSTATISTICIAN Hospital Encounter Department of Radiology in [address] [address] Kati Colin M.D. Chronic Obstructive Pulmonary Disease Without Exacerbation (HCC) Discharge Disposition: Home or Self Care 10/11/2024 11:15 AM SENIOR BIOSTATISTICIAN Nurse Only Department of [facility], in [address] [phone] Gracy Barrientos, L.P.N. Nurse Visit (Home machine B/P check.) 10/11/2024 11:00 AM SENIOR BIOSTATISTICIAN Office Visit Department of [facility], in [address] [address] Kati Colin M.D. Chronic Obstructive Pulmonary Disease Without Exacerbation (HCC) (Primary Dx); Failure Heart (HCC); Chronic Respiratory Failure With Hypoxia (HCC); Morbid Obesity Body Mass Index 40.0-44.9 Adult (HCC); Diabetes Mellitus Type 2 (HCC); Screening Cancer Colon; Cough Unspecified Type 10/11/2024 Clinical Communication Department of [facility], in [address] [phone] Kati Colin M.D. Results 10/11/2024 Refill Department of [facility], in [address] [phone] Kati Colin M.D. Med Refill 10/06/2024 Patient Self-Triage [facility] Symptom Hair Specialist, Provider 10/05/2024 Orders Only [facility] PCP [facility] Kati Colin M.D. Diabetes Mellitus Type 2 (HCC) 09/30/2024 Refill Division of Pulmonary Medicine in [place], [place] [address] [place] [address] Margarita Martinez APRN, C.N.P., D.N.P. Med Refill 09/08/2024 Clinical Communication Department of [facility], in [place], [place] [address] [place] [phone] Susie Cheng R.N. Quality (D5; HTN, Colorectal) 08/30/2024 10:45 AM SENIOR BIOSTATISTICIAN Comprehensive Visit Department of Sleep Medicine in [place], [place] [address] [place] [address] Sallie White APRN, C.N.P., D.N.P., M.S.N. Apnea Sleep Obstructive; Chronic Respiratory Failure With Hypoxia (HCC); Chronic Obstructive Pulmonary Disease Without Exacerbation (HCC) 08/25/2024 11:30 AM SENIOR BIOSTATISTICIAN Virtual Visit Division of Pulmonary Medicine in [place], [place] [address] [place] [address] Margarita Martinez, LOREN, C.N.P., D.N.P. Chronic Obstructive Pulmonary Disease Without Exacerbation (HCC) (Primary Dx); Smoking Tobacco Use Personal History; Apnea Sleep Obstructive; Nodule Pulmonary; Morbid Obesity Body Mass Index 40.0-44.9 Adult (HCC) 08/10/2024 Clinical Communication Department of [facility], [facility], in [address] [phone] Kati Colin M.D. Med Question (Azithromycin 500 mg) 08/06/2024 10:40 AM SENIOR BIOSTATISTICIAN - 08/06/2024 11:59 PM SENIOR BIOSTATISTICIAN Hospital Encounter Department of Laboratory Medicine in [address] [phone] Kati Colin M.D. Preoperative Exam Discharge Disposition: Home or Self Care 08/02/2024 9:00 AM SENIOR BIOSTATISTICIAN Office Visit Department of [facility], [facility], in [address] [address] Kati Colin M.D. Preoperative Exam (Primary Dx); [...] drink = 0.6 oz pur e alcohol) [facility] Utilities Answer Date Recorded In the past 12 months has [place], gas, oil, or water [employer] threatened to shut off services in your [...] your living situation today? I have a [facility] place to live 06/28/2024 Comments No Sex and Gender Information Value Date Recorded Sex Assigned at Female 05/07/2024 7:38 AM CDT Legal Sex Female 3:35 PM SENIOR BIOSTATISTICIAN Gender Identity Female 05/07/2024 7:38 AM CDT Sexual Orientation Straight 05/07/2024 7: 38 AM CDT Last Filed Vital Signs Vital Sign Reading Time Taken Comments Blood Pressure 110/70 10/11/2024 12:02 PM SENIOR BIOSTATISTICIAN Pulse 70 10/11/2024 12:02 PM SENIOR BIOSTATISTICIAN Temperature 35.3 C (95.5 F) 10/11/2024 10:45 AM SENIOR BIOSTATISTICIAN Respiratory Rate 20 10/11/2024 12:02 PM SENIOR BIOSTATISTICIAN Oxygen Saturation 95% 10/11/2024 10:45 AM SENIOR BIOSTATISTICIAN Inhaled Oxygen Concentration - - Weight 115 kg (253 lb 6.7 oz) 10/11/2024 10:45 A M SENIOR BIOSTATISTICIAN Height 166 cm (5' 5.35) 08/02/2024 8:58 AM SENIOR BIOSTATISTICIAN Body Mass Index 41.72 08/02/2024 8:58 AM SENIOR BIOSTATISTICIAN Plan of Treatment Upcoming Encounters Date Type Department Care Team (Latest Contact Info) Description 11/01/2024 9:50 AM SENIOR BIOSTATISTICIAN Appointment Department of Laboratory Medicine in [address] [phone] Kati Colin M.D. 300 [place] [phone] 11/01/2024 10:10 AM SENIOR BIOSTATISTICIAN Appointment Department of Laboratory Medicine in [place], [place] [address] [place] [address] Kati Colin M.D. 300 [place] [phone] 11/03/2024 3:30 PM SENIOR BIOSTATISTICIAN Comprehensive Visit Department of Ophthalmology in [place], [place] [address] [phone] Hipolito Lynch M.D. [address] [phone] 12/09/2024 9:30 AM CDT Appointment Department of Cardiovascular Diseases in [place], [place] [address] [phone] Kati Colin M.D. 300 [place] [address] Discharge Disposition: Home or Self Care 12/22/2024 10:30 AM CDT Clinical Communication Virtual Review in [place], [place] 200 [place] [address] 12/23/2024 10:00 AM CDT Diagnostic Division of Pulmonary Medicine in [address] [phone] Margarita Martinez APRN, C.N.P., D.N.P. [address] [place] [phone] 12/23/2024 10:30 AM CDT Diagnostic Division of Pulmonary Medicine in [address] [phone] Margarita Martinez APRN, C.N.P., D.N.P. [address] [place] [phone] 12/23/2024 11:30 AM CDT Office Visit Division of Pulmonary Medicine in [place], [place] [address] [place] [phone] Margarita Martinez APRN, C.NGustavo., D.N.P. [address] [place] [phone] Health Maintenance Due Date Last Done Comments [...] this topic Medical Devices Implanted Type Area Solar Sales Associate Device Identifier Shelf Expiration Date Model / [...] inpatients and all outpatients) 10/11/2024 11:53 AM SENIOR BIOSTATISTICIAN Chronic Obstructive Pulmonary Disease Without Exacerbation (HCC) ECG Routine 08/06/2024 11:04 AM SENIOR BIOSTATISTICIAN Preoperative Exam BI BREAST SCREENING BILATERAL WITH [...] and Lateral 2 Views (10/11/2024 11:53 AM SENIOR BIOSTATISTICIAN) Anatomical Region Laterality Modality Chest, Thoracic RST LOS, Tho racic ARZ LOS, Thoracic FLA LOS N/A Digital Radiography Impressions 10/11/2024 12:07 PM SENIOR BIOSTATISTICIAN No focal consolidation or pleural effusion size. PFO closure device. Atherosclerotic vascular disease. Indeterminate nodular opacity of the right upper lung, not significantly changed in size from prior CT when accounting for differences in modality. Postoperative changes wedge resection of the right upper lung. Narrative 10/11/2024 12:07 PM SENIOR BIOSTATISTICIAN EXAM: DX CHEST AP OR PA AND [...] us Kati Colin M.D. [facility] Final Result * ECG 12 Lead (08/06/2024 11:04 AM SENIOR BIOSTATISTICIAN) Ventricular Rate ECG/Min 69 BPM MUSE HI Interval 172 ms MUSE QRSD Interval 82 ms MUSE QT Interval 426 ms MUSE QTC Interval 456 ms MUSE P [place] 69 degrees MUSE R [place] 17 degrees MUSE T Wave [place] 69 degrees MUSE 08/06/2024 11:0 4 AM SENIOR BIOSTATISTICIAN 08/10/2024 12:42 PM SENIOR BIOSTATISTICIAN Impressions MUSE - 08/10/2024 12:42 PM SENIOR BIOSTATISTICIAN Normal sinus rhythm Normal ECG No previous [...] M.D. LAB BLOOD ADD-ON Final Resul t [facility] [address] [place] [address], [place] [facility] [facility] in [place] [address] [place] [address] * CT Chest without IV Contrast (04/27/2024 [...] M.D. LAB BLOOD ADD-ON Final Resul t [facility] [address] [place] [address], [place] [facility] [facility] in [place] [address], [place] [address] from Last 3 Months or Most Recently Relevant to Health Maintenance Insurance MEDICARE [employer] Care Teams Building Certifier Relationship Specialty Start Date End Date Kati Colin M.D. [address] [place] [address] [place] [address] PCP - General Family Medicine 03/09/24
--- OUTSIDE RECORDS SUMMARY | 2024-10-30 12:22 | XMS_ITS | Encounter Summary ---
Author Organization [facility] Address [address] [place] [address] Care Team Providers Care Processing Assistant Name Role Phone Kati Colin M.D. Primary Care Provider [phone] Reason for Referral * Outpatient (Routine) - Authorized Specialty Diagnoses / Procedures Referred By Phani cruz Referred To Contact Ophthalmology Diagnoses Diabetes Mellitus Type 2 (HCC) Kati Colin M.D. [address] [place] [address] Phone: tel: fax: [facility] Region Referral ID Status Reason Start Date Expiration Date Visits Requested Visits Authorized [id number] Authorized Specialty Services Required 10/11/2024 04/12/2026 1 1 Scheduling Instructions Do not schedule prior to due date to ensure insurance coverage Dilated Eye Exam Never done NOLOGY AUDITOR * Outpatient (Routine) - Closed Specialty Diagnoses / Procedures Referred By Phani cruz Referred To Contact Diagnoses Chronic Obstructive Pulmonary Disease Without Exacerbation (HCC) Procedures DX Chest AP or PA and Lateral 2 Views Kati Colin M.D. [address] [place] [address] Phone: tel: fax: [facility] Region Referral ID Status Reason Start Date Expiration Date Visits Re quested Visits Authorized [id number] Closed 10/11/2024 10/11/2025 1 1 NOLOGY AUDITOR Reason for Visit * Reason Comments Cough Cough, congestion, s ob, and BP f/u * Appointment Request (Routine) - Closed Specialty Diagnoses / Procedures Referred By Phani t Referred To Contact Family Medicine Referral ID Status Reason Start Date Expiration Date Visits Re quested Visits Authorized [id number] Closed 10/06/2024 10/06/2025 1 1 Encounter Details Date Type Department Care Team (Late st Contact Info) Description 10/11/2024 11:00 AM TECHNOLOGY AUDITOR Office Visit Department of Family Medicine, [facility], in [address] [phone] Kati Colin M.D. [address] [place] [address] Chronic Obstructive Pulmonary Disease Without Exacerbation (HCC) [...] In the past 12 months has e [employer], gas, oil, or water company threatened to [...] your living situation today? I have a [facility] place to live 06/28/2024 Comments No Sex and Gender Information Value Date Recorded Sex Assigned at Female 05/07/2024 7:38 AM CDT Legal Sex Female 3:35 PM TECHNOLOGY AUDITOR Gender Identity Female 05/07/2024 7:38 AM CDT Sexual Orientation Straight 05/07/2024 7: 38 AM CDT documented as of this encounter Last Filed Vital Signs Vital Sign Reading Time Taken Comments Blood Pressure 122/72 10/11/2024 10:45 AM TECHNOLOGY AUDITOR av erage Pulse 75 10/11/2024 10:45 AM TECHNOLOGY AUDITOR Temperature 35.3 C (95.5 F) 10/11/2024 10:45 AM TECHNOLOGY AUDITOR Respiratory Rate 16 10/11/2024 10:45 AM TECHNOLOGY AUDITOR Oxygen Saturation 95% 10/11/2024 10:45 AM TECHNOLOGY AUDITOR Inhaled Oxygen Concentration - - Weight 115 kg (253 lb 6.7 oz) 10/11/2024 10:45 A M TECHNOLOGY AUDITOR Height - - Body Mass Index 41.72 08/02/2024 8:58 AM TECHNOLOGY AUDITOR documented in this encounter Progress Notes * [...] by mouth daily., Disp: , Rfl: vitamins A,C,K-heuu-ymnudu (PreserVision AREDS) 7,160 Units-113 mg-100 Units per [...] placed - Cologuard ordered instead of colonoscopy NOLOGY AUDITOR documented in this encounter Plan of Treatment Upcoming Encounters Date Type Department Care Team (Latest Contact Info) Description 11/01/2024 9:50 AM TECHNOLOGY AUDITOR Appointment Department of Laboratory Medicine in [address] [phone] Kati Colin M.D. [address] [place] [phone] 11/01/2024 10:10 AM TECHNOLOGY AUDITOR Appointment Department of Laboratory Medicine in [address] [phone] Kati Colin M.D. [address] [place] [phone] 11/03/2024 3:30 PM TECHNOLOGY AUDITOR Comprehensive Visit Department of Ophthalmology in [place], [place] [address] [place] [phone] Hipolito Lynch M.D. [address], [place] [phone] 12/09/2024 9:30 AM CDT Appointment Department of Cardiovascular Diseases in [place], [place] [address] [place] [phone] Kati Colin M.D. [address] [place] [phone] Discharge Disposition: Home or Self Care 12/22/2024 10:30 AM CDT Clinical Communication Virtual Review in [place], [place] [address] [place] [address] 12/23/2024 10:00 AM CDT Diagnostic Division of Pulmonary Medicine in [place], [place] [address] [place] [phone] Margarita Martinez APRN, C.N.P., D.N.P. [address] [place] [phone] 12/23/2024 10:30 AM CDT Diagnostic Division of Pulmonary Medicine in [address] [phone] Margarita Martinez APRN, C.N.P., D.N.P. [address] [place] [phone] 12/23/2024 11:30 AM CDT Office Visit Division of Pulmonary Medicine in [address] [phone] Margarita Martinez APRN, C.N.P., D.N.P. [address] [place] [phone] Scheduled Orders Name Type Priority Associated Diagnoses [...] and Lateral 2 Views (10/11/2024 11:53 AM TECHNOLOGY AUDITOR) Anatomical Region Laterality Modality Chest, Thoracic RST LOS, Tho racic ARZ LOS, Thoracic FLA LOS N/A Digital Radiography Impressions 10/11/2024 12:07 PM TECHNOLOGY AUDITOR No focal consolidation or pleural effusion size. PFO closure device. Atherosclerotic vascular disease. Indeterminate nodular opacity of the right upper lung, not significantly changed in size from prior CT when accounting for differences in modality. Postoperative changes wedge resection of the right upper lung. Narrative 10/11/2024 12:07 PM TECHNOLOGY AUDITOR EXAM: DX CHEST AP OR PA AND [...] the right upper lung. Kati Colin M.D. [facility] Final Result documented in this encounter Visit Diagnoses Diagnosis Chronic Obstructive Pulmonary Disease Without Exacerbation (HCC)- Primary Failure Heart (HCC) Chronic Respiratory Failure With Hypoxia (HCC) Morbid Obesity Body Mass Index 40.0-44.9 Adult (HCC) Diabetes Mellitus Type 2 (HCC) Screening Cancer Colon Cough Unspecified Type Chronic Obstructive Pulmonary Disease Without Exacerbation (HCC) documented in this encounter Care Teams Processing Assistant Relationship Specialty Start Date End Date Kati Colin M.D. [address] [place] [phone] PCP - General Family Medicine 03/09/24 documented as of this encounter
--- OUTSIDE RECORDS SUMMARY | 2024-10-30 12:22 | XMS_ITS | Continuity of Care Document ---
Author Organization [facility] Address [address] [place] [address] Phone Care Team Providers Care Technical Training Coordinator Name Role Phone Unavailable Unavailable Unavailable Allergies, [...] Vitamin D3 2,000 unit capsule - Active ucaohlx-txkmrynbd-kgaw 333 mg-133 mg-5 mg tablet - Active [...] Providers Copied on Encounter Est Pt Detailed [facility], [address] , [place], [place], [id number], tel:[phone] [facility] Diabetic eye exam (chief complaint) Retinal eval (chief complaint) Type 2 diabetes mellitus w/o complicationVi treous degeneration, bilateralNonex udative age-related macular degeneration, bilateral, early dry stage 0 No Information [facility], [facility] [place], [place], [id number], tel:[phone] [facility] Retinal Eval (chief complaint) floaters (chief complaint) Diabetic Exam (chief complaint) Type 2 diabetes mellitus w/o complicationOt her secondary cataract, right eyeVitreous degeneration, bilateral 8 Sayda Márquez. [address], [place], [id number], [place]. tel:[phone] Referring Provider: Willi Alfredo, [address] [place], [address] . tel:[phone] Family History Family Member Type Diagnosis Age At Onset Mother Problem (finding) Cardiovascular disease Brother Problem (finding) cataract Father Problem (finding) Diabetes mellitus Payers Payer name Insurance type Covered green party ID Authoriza tion(s) No Information Social History [...] to keep future appointments with PCP and/or Building Dismantler for the management of Diabetes. Recommend observation [...]
--- OUTSIDE RECORDS SUMMARY | 2024-10-30 12:23 | XMS_ITS | Encounter Summary ---
Author Organization [facility] Address [address] [place] [address] Care Team Providers Care Artificial Limb Maker Name Role Phone Kati Colin M.D. Primary Care Provider [phone] Encounter Details Date Type Department Care Team (Late st Contact Info) Description 10/05/2024 Orders Only [facility] Kati Colin M.D. [address] [place] [phone] Diabetes Mellitus Type 2 (HCC) Social History Tobacco Use Types Packs/Day Years Used Date Smoking Tobacco: Former Cigarettes Alcohol Use Standard Drinks/Week Comments Yes 2 (1 standard drink = 0.6 oz pur e alcohol) [facility] Utilities Answer Date Recorded In the past 12 months has [employer], gas, oil, or water company threatened [...] your living situation today? I have a [facility] place to live 06/28/2024 Comments No Sex and Gender Information Value Date Recorded Sex Assigned at Female 05/07/2024 7:38 AM CDT Legal Sex Female 3:35 PM SUBMARINE ADVISORY TEAM WATCH OFFICER Gender Identity Female 05/07/2024 7:38 AM CDT Sexual Orientation Straight 05/07/2024 7: 38 AM CDT documented as of this encounter Plan of Treatment Upcoming Encounters Date Type Department Care Team (Latest Contact Info) Description 11/01/2024 9:50 AM SUBMARINE ADVISORY TEAM WATCH OFFICER Appointment Department of Laboratory Medicine in [address] [phone] Kati Colin M.D. [address] [place] [phone] 11/01/2024 10:10 AM SUBMARINE ADVISORY TEAM WATCH OFFICER Appointment Department of Laboratory Medicine in [address] [phone] Kati Colin M.D. [address] [place] [phone] 11/03/2024 3:30 PM SUBMARINE ADVISORY TEAM WATCH OFFICER Comprehensive Visit Department of Ophthalmology in [place], [place] [address] [place] [phone] Hipolito Lynch M.D. [address] [phone] 12/09/2024 9:30 AM CDT Appointment Department of Cardiovascular Diseases in [place], [place] [address] [place] [phone] Kati Colin M.D. [address] [place] [phone] Discharge Disposition: Home or Self Care 12/22/2024 10:30 AM CDT Clinical Communication Virtual Review in [address] [phone] 12/23/2024 10:00 AM CDT Diagnostic Division of Pulmonary Medicine in [address] [phone] Margarita Martinez APRN, C.N.P., D.N.P. [address] [place] [phone] 12/23/2024 10:30 AM CDT Diagnostic Division of Pulmonary Medicine in [address] [phone] Margarita Martinez APRN, C.N.P., D.N.P. [address] [place] [phone] 12/23/2024 11:30 AM CDT Office Visit Division of Pulmonary Medicine in [address] [phone] Margarita Martinez, LOREN, C.N.P., D.N.P. [address] [place] [address] Scheduled Orders Name Type Priority Associated Diagnoses Orde r Schedule Albumin, Random, Urine Lab Routine Diabetes Mellitus Type 2 (HCC) Expected: 10/19/2024, Expires: 04/03/2025 Hemoglobin A1c Lab Routine Diabetes Mellitus Type 2 (HCC) Expected: 10/19/2024, Expires: 04/03/2025 documented as of this encounter Visit Diagnoses Diagnosis Diabetes Mellitus Type 2 (HCC) documented in this encounter Care Teams Artificial Limb Maker Relationship Specialty Start Date End Date Kati Colin M.D. [address] [place] [phone] PCP - General Family Medicine 03/09/24 documented as of this encounter
--- OUTSIDE RECORDS SUMMARY | 2024-10-30 12:25 | XMS_ITS | Data Portability ---
Author Organization [place] - [facility] [employer], [facility], [facility] Address [address] [facility] [address] [place] [id number] Assessment No assessment recorded. Plan of Treatment Reminders Order Date Submit Date Provider Last Modified By Organization Details Last Modified Time Details Appointments None recorded. Lab renal function panel, serum 2021 022 [employer], [address], [place], [address], 11:27:43 urinalysis , complete 2021 022 [employer], [address], [place], [address], 2 11:27:43 microalbum in/creatin ine, mass ratio, urine 2021 022 [employer], [address], [place], [address], 2 09:57:51 creatinine , urine 2021 022 [employer], [address], [place], [address], 2 11:27:42 renal function panel, serum 2022 023 [employer], [address], [place], [address], 3 21:32:51 urinalysis , complete 2022 023 [facility] [employer] [employer], [address], [address], [place], [address], 3 21:32:52 microalbum in/creatin ine, mass ratio, urine 2022 023 [employer] [employer], [address], [address], [place], [address], 3 21:32:51 creatinine , urine 2022 023 [employer] [employer], [address], [address], [place], [address], 3 21:32:50 protein:cr eatinine ratio, urine 2022 023 [employer] [employer], [address], [address], [place], [address], 3 21:32:52 CBC w/ auto diff 2022 023 [employer] [employer], [address], [address], [place], [address], 3 21:32:50 renal function panel, serum 2022 023 [employer] [employer], [address], [address], [place], [address], 3 17:20:13 urinalysis , complete 2022 023 [employer] [employer], [address], [address], [place], [address], 3 17:20:14 protein:cr eatinine ratio, urine 2022 023 [facility] [employer], [address] [facility] , [address], [place], [address], 3 17:20:13 CBC w/ auto diff 2022 023 [facility] [employer], [address], [address], [place], [address], 3 17:20:09 Referral None recorded. Procedures None recorded. Surgeries None recorded. Imaging US, kidney 2021 022 [email or web address] Not available 07:34:20 Medication Orders Farxiga 5 mg tablet 2022 023 Not available 15:49:51 Patient TargetsNo targets recorded. Patient Instructions Encounter Date Encounter Id Patient Instructions Last Modified By Organization Details Last Modified Time 01/23/2022 [id number] nephrotoxic & nsaid medications [email or web address] Not available 01/23/2022 17:15:35 low sodium diet (2,000 milligram): care instructions [email or web address] Not available 01/23/2022 17:15:35 Reason for Referral None Reported. Results Created Date Observation Date Name Description Value Unit Range Abnormal Flag Note LastModifiedBy Organization Detail LastModifiedTime 04/22/2004/23/2022 CREAT ININE , URINE , RANDO M creatinine, urine, random 56 mg/dL 19 - 280 Not Available [employer] [address] [facility] [address], [place], [address], 04/23/2022 04:14:35 04/22/20 22 04/23/2022 RENAL FUNCT ION PANEL W/EGF R glucose 165 mg/dL 70 - 99 high Gluco se refer ence range refle cts fasti ng state . Not Available [employer] [address] [facility] [address], [place], [address], 04/23/2022 04:14:35 04/22/20 22 04/23/2022 RENAL FUNCT ION PANEL W/EGF R urea nitrogen (BUN) 13 mg/dL 7 - 28 Not Available [facility], [address], [address], 04/23/2022 04:14:35 04/22/20 22 04/23/2022 RENAL FUNCT ION PANEL W/EGF R creatinine 0.71 mg/dL 0.60 - 1.40 Not Available [facility], [address], [address], 04/23/2022 04:14:35 04/22/20 22 04/23/2022 RENAL FUNCT ION PANEL W/EGF R egfrcr CKD-epi 94 mL/mi n/1.7 3m2 >=60 eGFRc r calcu lated using the CKD-E PI 2020 equat ion Not Available [facility], [address], [address], 04/23/2022 04:14:35 04/22/20 22 04/23/2022 RENAL FUNCT ION PANEL W/EGF R BUN/creatini ne ratio 18.3 10.0 - 28.0 Not Available [facility], [address], [address], 04/23/2022 04:14:35 04/22/20 22 04/23/2022 RENAL FUNCT ION PANEL W/EGF R sodium 142 mmol/ L 135 - 145 Not Available [facility], [address], [address], 04/23/2022 04:14:35 04/22/20 22 04/23/2022 RENAL FUNCT ION PANEL W/EGF R potassium 4.4 mmol/ L 3.6 - 5.3 Not Available [facility], [address], [address], 04/23/2022 04:14:35 04/22/20 22 04/23/2022 RENAL FUNCT ION PANEL W/EGF R chloride 100 mmol/ L 95 - 109 Not Available [facility], [address], [address], 04/23/2022 04:14:35 04/22/20 22 04/23/2022 RENAL FUNCT ION PANEL W/EGF R carbon dioxide (co2) 33 mmol/ L 20 - 31 high Not Available [facility], [address], [address], 04/23/2022 04:14:35 04/22/20 22 04/23/2022 RENAL FUNCT ION PANEL W/EGF R albumin 4.4 g/dL 3.8 - 5.1 Not Available [facility], [address], [address], 04/23/2022 04:14:35 04/22/20 22 04/23/2022 RENAL FUNCT ION PANEL W/EGF R calcium 9.2 mg/dL 8.7 - 10.4 Not Available [facility], [address], [address], 04/23/2022 04:14:35 04/22/20 22 04/23/2022 RENAL FUNCT ION PANEL W/EGF R phosphorus (inorganic) 3.2 mg/dL 2.4 - 4.8 Not Available [facility], [address], [address], 04/23/2022 04:14:35 04/22/20 22 04/23/2022 URINE ALBUM IN, RANDO M urine albumin, random 147 mg/L not establ ished Not Available [facility], [address], [address], 04/23/2022 04:14:36 04/22/20 22 04/23/2022 URINE ALBUM IN, RANDO M urine albumin/urin e creatinine ratio 263 mg/g_ creat <=29 high Album inuri a Categ ories in Chron ic Kidne y Disea se Urine Album in/Ur ine Creat inine Ratio (mg/g Creat inine ): Chris l/Mil d Incre ase: <30 mg/g Creat inine Moder ately Incre ased: 30-30 0 mg/g Creat inine Sever lisette Incre ased: >300 mg/g Creat inine Urine album in and creat inine have high biolo gical varia tion and may be affec sofia by other patho logic al and/o r physi ologi jake event s, to inclu de age, sex, race, exerc ise, uprig ht postu re, UTI, and septi cemia . Patie nts with value s betwe en 30 and 300 mg/g shoul d under go addit ional tests withi n 2 month s to confi rm album inuri a. Colle ct these addit ional sampl es 1-2 weeks apart , ideal ly as a first morni ng speci men. The eleva tion of 2 out of 3 of these speci mens is indic ative of prolo nged album inuri a. Kidne y Inter Supp. 2013; 3:1-1 50 Not Available [employer] [facility] [facility] [address] [place] [address], [address], 04/23/2022 04:14:36 04/22/20 22 04/23/2022 URINA LYSIS COMPL ETE WBC, urine 0-5 /hpf 0-5 Not Available [employer] [facility] [address] [place] [address], [address], 04/23/2022 04:14:36 04/22/20 22 04/23/2022 URINA LYSIS COMPL ETE RBC, urine 0-2 /hpf 0-2 Not Available [employer] [facility] [address] [place] [address], [address], 04/23/2022 04:14:36 04/22/20 22 04/23/2022 URINA LYSIS COMPL ETE epithelial cells, urine 0-2 /hpf 0-2 Not Available [facility], [address] [address], [place], [address], 04/23/2022 04:14:36 04/22/20 22 04/23/2022 URINA LYSIS COMPL ETE bacteria, urine None Seen /hpf none seen Not Available [facility] [address] [place] [address], [address], 04/23/2022 04:14:36 04/22/20 22 04/23/2022 URINA LYSIS COMPL ETE hyaline casts 0-2 /lpf 0-2 Not Available [facility], [address], [address], 04/23/2022 04:14:36 04/22/20 22 04/23/2022 URINA LYSIS COMPL ETE color, urine Normal normal Not Available [facility] [employer], [address], [address], 04/23/2022 04:14:36 04/22/20 22 04/23/2022 URINA LYSIS COMPL ETE clarity, urine Clear clear Not Available [facility], [address], [address], 04/23/2022 04:14:36 04/22/20 22 04/23/2022 URINA LYSIS COMPL ETE specific gravity, urine 1.013 1.005 - 1.030 Not Available [facility] [address] [place] [address], [address], 04/23/2022 04:14:36 04/22/20 22 04/23/2022 URINA LYSIS COMPL ETE leukocyte esterase, urine qualitative Negati ve negati ve Not Available [facility], [address] [address], [place], [address], 04/23/2022 04:14:36 04/22/20 22 04/23/2022 URINA LYSIS COMPL ETE nitrite, urine qualitative Negati ve negati ve Not Available [facility] [address] [place] [address], [place], [address], 04/23/2022 04:14:36 04/22/20 22 04/23/2022 URINA LYSIS COMPL ETE pH, urine 7.5 5.0 - 8.0 Not Available [facility] [address] [place] [address], [place], [address], 04/23/2022 04:14:36 04/22/20 22 04/23/2022 URINA LYSIS COMPL ETE blood, urine qualitative Negati ve negati ve Not Available [facility] [address] [place] [address], [address], 04/23/2022 04:14:36 04/22/20 22 04/23/2022 URINA LYSIS COMPL ETE glucose, urine qualitative Negati ve mg/dL negati ve Not Available [facility] [address] [place] [address], [place], [address], 04/23/2022 04:14:36 04/22/20 22 04/23/2022 URINA LYSIS COMPL ETE ketones, urine qualitative Negati ve negati ve Not Available [facility] [address] [place] [address], [address], 04/23/2022 04:14:36 04/22/20 22 04/23/2022 URINA LYSIS COMPL ETE urobilinogen , urine qualitative Normal eu/dL normal Not Available [facility] [address] [place] [address], [address], 04/23/2022 04:14:36 04/22/20 22 04/23/2022 URINA LYSIS COMPL ETE bilirubin, urine qualitative Negati ve negati ve Not Available [facility], [address], [address], 04/23/2022 04:14:36 04/22/20 22 04/23/2022 URINA LYSIS COMPL ETE protein, urine qualitative 100 mg/dL negati ve high Not Available [facility], [address], [address], 04/23/2022 04:14:36 10/21/19 23 10/24/2022 CBC W/ DIFFE RENTI AL, W/ PLATE LET WBC 10.3 k/mm3 4.0 - 11.0 normal Not Available [facility] [address] [place] [address], [address], 10/24/2022 08:18:31 10/21/1910/24/2022 CBC W/ DIFFE RENTI AL, W/ PLATE LET RBC 3.89 m/mm3 3.70 - 5.40 normal Not Available [facility] [address] [place] [address], [address], 10/24/2022 08:18:31 10/21/1910/24/2022 CBC W/ DIFFE RENTI AL, W/ PLATE LET hemoglobin 10.7 g/dL 11.5 - 16.0 low Not Available [facility] [address] [place] [address], [address], 10/24/2022 08:18:31 10/21/1910/24/2022 CBC W/ DIFFE RENTI AL, W/ PLATE LET hematocrit 34.8 % 35.0 - 48.0 low Not Available [facility] [address] [place] [address], [address], 10/24/2022 08:18:31 10/21/19 23 10/24/2022 CBC W/ DIFFE RENTI AL, W/ PLATE LET MCV 89.5 fL 78.0 - 100.0 normal Not Available [facility], [address], [address], 10/24/2022 08:18:31 10/21/19 23 10/24/2022 CBC W/ DIFFE RENTI AL, W/ PLATE LET MCH 27.5 pg 27.0 - 34.0 normal Not Available [facility], [address], [address], 10/24/2022 08:18:31 10/21/19 23 10/24/2022 CBC W/ DIFFE RENTI AL, W/ PLATE LET MCHC 30.7 g/dL 31.0 - 37.0 low Not Available [facility], [address], [address], 10/24/2022 08:18:31 10/21/19 23 10/24/2022 CBC W/ DIFFE RENTI AL, W/ PLATE LET platelet count 416 k/mm3 130 - 450 normal Not Available [facility], [address], [address], 10/24/2022 08:18:31 10/21/19 23 10/24/2022 CBC W/ DIFFE RENTI AL, W/ PLATE LET RDW(SD) 51.1 fL 38.0 - 49.0 high Not Available [facility], [address], [address], 10/24/2022 08:18:31 10/21/19 23 10/24/2022 CBC W/ DIFFE RENTI AL, W/ PLATE LET RDW(CV) 15.9 % 11.0 - 15.0 high Not Available [facility], [address], [address], 10/24/2022 08:18:31 10/21/19 23 10/24/2022 CBC W/ DIFFE RENTI AL, W/ PLATE LET MPV 9.6 fL 7.5 - 14.0 normal Not Available [facility] [address] [place] [address], [address], 10/24/2022 08:18:31 10/21/19 23 10/24/2022 CBC W/ DIFFE RENTI AL, W/ PLATE LET segmented neutrophils 69.8 % Autom ated Diff Not Available [facility] [address] [place] [address], [address], 10/24/2022 08:18:31 10/21/19 23 10/24/2022 CBC W/ DIFFE RENTI AL, W/ PLATE LET lymphocytes 19.7 % Not Available [facility] [address] [place] [address], [address], 10/24/2022 08:18:31 10/21/19 23 10/24/2022 CBC W/ DIFFE RENTI AL, W/ PLATE LET monocytes 8.9 % Not Available [facility] [address] [place] [address], [address], 10/24/2022 08:18:31 10/21/19 23 10/24/2022 CBC W/ DIFFE RENTI AL, W/ PLATE LET eosinophils 0.6 % Not Available [facility] [address] [place] [address], [address], 10/24/2022 08:18:31 10/21/19 23 10/24/2022 CBC W/ DIFFE RENTI AL, W/ PLATE LET basophils 0.4 % Not Available [facility] [address] [place] [address], [address], 10/24/2022 08:18:31 10/21/19 23 10/24/2022 CBC W/ DIFFE RENTI AL, W/ PLATE LET absolute neutrophil 7.18 k/uL 1.60 - 9.30 normal Not Available [facility], [address], [address], 10/24/2022 08:18:31 10/21/19 23 10/24/2022 CBC W/ DIFFE RENTI AL, W/ PLATE LET absolute lymphocyte 2.02 k/uL 0.60 - 5.50 normal Not Available [facility], [address], [address], 10/24/2022 08:18:31 10/21/19 23 10/24/2022 CBC W/ DIFFE RENTI AL, W/ PLATE LET absolute monocyte 0.91 k/uL 0.10 - 1.60 normal Not Available [facility], [address], [address], 10/24/2022 08:18:31 10/21/19 23 10/24/2022 CBC W/ DIFFE RENTI AL, W/ PLATE LET absolute eosinophil 0.06 k/uL 0.00 - 0.70 normal Not Available [facility], [address], [address], 10/24/2022 08:18:31 10/21/19 23 10/24/2022 CBC W/ DIFFE RENTI AL, W/ PLATE LET absolute basophil 0.04 k/uL 0.00 - 0.20 normal Not Available [facility], [address], [address], 10/24/2022 08:18:31 10/21/19 23 10/24/2022 CBC W/ DIFFE RENTI AL, W/ PLATE LET immature granulocytes 0.6 % Not Available [facility], [address], [address], 10/24/2022 08:18:31 10/21/19 23 10/24/2022 CBC W/ DIFFE RENTI AL, W/ PLATE LET absolute immature granulocytes 0.06 k/uL 0.00 - 0.10 normal Not Available [facility], [address], [address], 10/24/2022 08:18:31 10/21/19 23 10/24/2022 CBC W/ DIFFE LUZ ELENA AL, W/ PLATE LET NRBC re, nucleated red blood cell percent 0.0 % 0.0 - 1.0 normal Not Available [facility], [address], [address], 10/24/2022 08:18:31 10/21/19 23 10/24/2022 URIC ACID uric acid 4.0 mg/dL 2.5 - 6.2 normal Not Available [facility], [address], [address], 10/24/2022 08:18:31 10/21/19 23 10/24/2022 OSMOL ALITY , URINE osmolality, urine CANCEL LED Incor rect speci men recei steven. Pleas e refer to the Refer ence Amy reed for speci men requi remen ts. Not Available [facility], [address], [address], 10/24/2022 08:18:32 10/21/19 23 10/24/2022 COMPR EHENS MONICA METAB OLIC PANEL W/EGF R glucose 98 mg/dL 70 - 99 normal Gluco se refer ence range refle cts fasti ng state . Not Available [facility], [address], [address], 10/24/2022 08:18:32 10/21/19 23 10/24/2022 COMPR EHENS MONICA METAB OLIC PANEL W/EGF R urea nitrogen (BUN) 28 mg/dL 7 - 28 normal Not Available [facility], [address], [address], 10/24/2022 08:18:32 10/21/19 23 10/24/2022 COMPR EHENS MONICA METAB OLIC PANEL W/EGF R creatinine 0.87 mg/dL 0.60 - 1.40 normal Not Available [facility], [address], [address], 10/24/2022 08:18:32 10/21/19 23 10/24/2022 COMPR EHENS MONICA METAB OLIC PANEL W/EGF R egfrcr CKD-epi 73 mL/mi n/1.7 3m2 >=60 normal eGFRc r calcu lated using the CKD-E PI 2020 equat ion Not Available [facility], [address], [address], 10/24/2022 08:18:32 10/21/19 23 10/24/2022 COMPR EHENS MONICA METAB OLIC PANEL W/EGF R BUN/creatini ne ratio 32.2 10.0 - 28.0 high Not Available [facility], [address], [address], 10/24/2022 08:18:32 10/21/19 23 10/24/2022 COMPR EHENS MONICA METAB OLIC PANEL W/EGF R sodium 141 mmol/ L 135 - 145 normal Not Available [facility], [address], [address], 10/24/2022 08:18:32 10/21/19 23 10/24/2022 COMPR EHENS MONICA METAB OLIC PANEL W/EGF R potassium 3.9 mmol/ L 3.6 - 5.3 normal Not Available [facility], [address], [address], 10/24/2022 08:18:32 10/21/19 23 10/24/2022 COMPR EHENS MONICA METAB OLIC PANEL W/EGF R chloride 99 mmol/ L 95 - 109 normal Not Available [facility] [address] [place] [address] [address], [place], [address], 10/24/2022 08:18:32 10/21/19 23 10/24/2022 COMPR EHENS MONICA METAB OLIC PANEL W/EGF R carbon dioxide (co2) 26 mmol/ L 20 - 31 normal Not Available [facility], [address], [place], [address], 10/24/2022 08:18:32 10/21/19 23 10/24/2022 COMPR EHENS MONICA METAB OLIC PANEL W/EGF R anion gap 16 4 - 18 normal Not Available [employer], [address] [address], [place], [address], 10/24/2022 08:18:32 10/21/19 23 10/24/2022 COMPR EHENS MONICA METAB OLIC PANEL W/EGF R protein, total 6.6 g/dL 6.0 - 7.7 normal Not Available [facility] [address] [place] [address], [place], [address], 10/24/2022 08:18:32 10/21/19 23 10/24/2022 COMPR EHENS MONICA METAB OLIC PANEL W/EGF R albumin 4.1 g/dL 3.8 - 5.1 normal Not Available [facility], [address] [address], [place], [address], 10/24/2022 08:18:32 10/21/19 23 10/24/2022 COMPR EHENS MONICA METAB OLIC PANEL W/EGF R globulin 2.5 g/dL 1.7 - 3.3 normal Note: New refer ence range effec tive 2022 Not Available [facility] [address] [place] [address] [address], [place], [address], 10/24/2022 08:18:32 10/21/19 23 10/24/2022 COMPR EHENS MONICA METAB OLIC PANEL W/EGF R albumin/glob ulin ratio 1.6 1.3 - 2.7 normal Note: New refer ence range effec tive 2022 Not Available [facility], [address], [address], 10/24/2022 08:18:32 10/21/19 23 10/24/2022 COMPR EHENS MONICA METAB OLIC PANEL W/EGF R calcium 9.7 mg/dL 8.7 - 10.4 normal Not Available [facility], [address], [address], 10/24/2022 08:18:32 10/21/19 23 10/24/2022 COMPR EHENS MONICA METAB OLIC PANEL W/EGF R alkaline phosphatase 70 IU/L 42 - 146 normal Not Available [facility], [address], [address], 10/24/2022 08:18:32 10/21/19 23 10/24/2022 COMPR EHENS MONICA METAB OLIC PANEL W/EGF R alanine aminotransfe rase 22 IU/L 5 - 46 normal Not Available [facility], [address], [address], 10/24/2022 08:18:32 10/21/19 23 10/24/2022 COMPR EHENS MONICA METAB OLIC PANEL W/EGF R aspartate aminotransfe rase 20 IU/L 11 - 40 normal Not Available [facility], [address], [address], 10/24/2022 08:18:32 10/21/19 23 10/24/2022 COMPR EHENS MONICA METAB OLIC PANEL W/EGF R bilirubin, total 0.3 mg/dL <=1.3 normal Not Available [facility], [address], [address], 10/24/2022 08:18:32 10/21/19 23 10/24/2022 RENAL FUNCT ION PANEL W/EGF R phosphorus (inorganic) 3.1 mg/dL 2.4 - 4.8 normal Not Available [facility], [address], [address], 10/24/2022 08:18:33 10/21/19 23 10/24/2022 PROTE IN, URINE , RANDO M, CHRIS LIZED creatinine, urine, random 56 mg/dL 19 - 280 normal Not Available [facility], [address], [address], 10/24/2022 08:18:33 10/21/19 23 10/24/2022 PROTE IN, URINE , RANDO M, CHRIS LIZED protein, urine, random 74 mg/dL not establ ished Not Available [facility], [address], [address], 10/24/2022 08:18:33 10/21/19 23 10/24/2022 PROTE IN, URINE , RANDO M, CHRIS LIZED protein, urine, normalized 1321 mg/g_ creat 15 - 220 high Not Available [facility], [address], [address], 10/24/2022 08:18:33 10/21/19 23 10/24/2022 URINA LYSIS WITH REFLE X TO CULTU RE WBC, urine 0-5 /hpf 0-5 normal Not Available [facility], [address], [address], 10/24/2022 08:18:33 10/21/19 23 10/24/2022 URINA LYSIS WITH REFLE X TO CULTU RE RBC, urine 0-2 /hpf 0-2 normal Not Available [facility], [address], [address], 10/24/2022 08:18:33 10/21/19 23 10/24/2022 URINA LYSIS WITH REFLE X TO CULTU RE epithelial cells, urine 0-2 /hpf 0-2 normal Not Available [facility], [address], [place], [address], 10/24/2022 08:18:33 10/21/19 23 10/24/2022 URINA LYSIS WITH REFLE X TO CULTU RE bacteria, urine NONE SEEN /hpf none seen normal Not Available [facility], [address], [place], [address], 10/24/2022 08:18:33 10/21/19 23 10/24/2022 URINA LYSIS WITH REFLE X TO CULTU RE hyaline casts 0-2 /lpf 0-2 normal Not Available [facility], [address] [address], [place], [address], 10/24/2022 08:18:33 10/21/19 23 10/24/2022 URINA LYSIS WITH REFLE X TO CULTU RE color, urine NORMAL normal normal Not Available [facility] [employer], [address] [address], [place], [address], 10/24/2022 08:18:33 10/21/19 23 10/24/2022 URINA LYSIS WITH REFLE X TO CULTU RE clarity, urine CLEAR clear normal Not Available [facility], [address] [address], [place], [address], 10/24/2022 08:18:33 10/21/19 23 10/24/2022 URINA LYSIS WITH REFLE X TO CULTU RE specific gravity, urine 1.017 1.005 - 1.030 normal Not Available [facility], [address], [place], [address], 10/24/2022 08:18:33 10/21/1921 1010/24/2022 URINA LYSIS WITH REFLE X TO CULTU RE leukocyte esterase, urine qualitative NEGATI VE negati ve normal Not Available [facility], [address] [address], [place], [address], 10/24/2022 08:18:33 10/21/19 23 10/24/2022 URINA LYSIS WITH REFLE X TO CULTU RE nitrite, urine qualitative NEGATI VE negati ve normal Not Available [facility], [address], [place], [address], 10/24/2022 08:18:33 10/21/19 23 10/24/2022 URINA LYSIS WITH REFLE X TO CULTU RE pH, urine 5.5 5.0 - 8.0 normal Not Available [facility] [address] [place] [address], [place], [address], 10/24/2022 08:18:33 10/21/19 23 10/24/2022 URINA LYSIS WITH REFLE X TO CULTU RE blood, urine qualitative NEGATI VE negati ve normal Not Available [facility] [address] [place] [address], [place], [address], 10/24/2022 08:18:33 10/21/19 23 10/24/2022 URINA LYSIS WITH REFLE X TO CULTU RE glucose, urine qualitative NEGATI VE mg/dL negati ve normal Not Available [facility] [address] [place] [address] [address], [place], [address], 10/24/2022 08:18:33 10/21/19 23 10/24/2022 URINA LYSIS WITH REFLE X TO CULTU RE ketones, urine qualitative NEGATI VE negati ve normal Not Available [facility] [address] [place] [address] [address], [place], [address], 10/24/2022 08:18:33 10/21/19 23 10/24/2022 URINA LYSIS WITH REFLE X TO CULTU RE urobilinogen , urine qualitative NORMAL eu/dL normal normal Not Available [facility], [address], [address], 10/24/2022 08:18:33 10/21/19 23 10/24/2022 URINA LYSIS WITH REFLE X TO CULTU RE bilirubin, urine qualitative NEGATI VE negati ve normal Not Available [facility], [address], [address], 10/24/2022 08:18:33 10/21/19 23 10/24/2022 URINA LYSIS WITH REFLE X TO CULTU RE protein, urine qualitative 100 mg/dL negati ve high Not Available [facility], [address], [id number], 10/24/2022 08:18:33 05/19/20 23 05/19/2023 CBC W/ DIFFE RENTI AL, W/ PLATE LET WBC 6.1 k/mm3 4.0 - 11.0 normal Not Available [facility], [address], [id number], 05/19/2023 21:32:50 05/19/20 23 05/19/2023 CBC W/ DIFFE RENTI AL, W/ PLATE LET RBC 4.15 m/mm3 3.70 - 5.40 normal Not Available [facility], [address], [id number], 05/19/2023 21:32:50 05/19/20 23 05/19/2023 CBC W/ DIFFE RENTI AL, W/ PLATE LET hemoglobin 11.9 g/dL 11.5 - 16.0 normal Not Available [facility], [address], [id number], 05/19/2023 21:32:50 05/19/20 23 05/19/2023 CBC W/ DIFFE RENTI AL, W/ PLATE LET hematocrit 39.1 % 35.0 - 48.0 normal Not Available [facility], [address], [id number], 05/19/2023 21:32:50 05/19/20 23 05/19/2023 CBC W/ DIFFE RENTI AL, W/ PLATE LET MCV 94.2 fL 78.0 - 100.0 normal Not Available [facility], [address], [id number], 05/19/2023 21:32:50 05/19/20 23 05/19/2023 CBC W/ DIFFE RENTI AL, W/ PLATE LET MCH 28.7 pg 27.0 - 34.0 normal Not Available [facility], [address], [id number], 05/19/2023 21:32:50 05/19/20 23 05/19/2023 CBC W/ DIFFE RENTI AL, W/ PLATE LET MCHC 30.4 g/dL 31.0 - 37.0 low Not Available [facility], [address], [id number], 05/19/2023 21:32:50 05/19/20 23 05/19/2023 CBC W/ DIFFE RENTI AL, W/ PLATE LET platelet count 209 k/mm3 130 - 450 normal Not Available [facility], [address], [id number], 05/19/2023 21:32:50 05/19/20 23 05/19/2023 CBC W/ DIFFE RENTI AL, W/ PLATE LET RDW(SD) 52.6 fL 38.0 - 49.0 high Not Available [facility], [address], [address], 05/19/2023 21:32:50 05/19/20 23 05/19/2023 CBC W/ DIFFE RENTI AL, W/ PLATE LET RDW(CV) 15.2 % 11.0 - 15.0 high Not Available [facility] [address] [place] [address], [address], 05/19/2023 21:32:50 05/19/20 23 05/19/2023 CBC W/ DIFFE RENTI AL, W/ PLATE LET MPV 10.2 fL 7.5 - 14.0 normal Not Available [facility] [address] [place] [address], [address], 05/19/2023 21:32:50 05/19/20 23 05/19/2023 CBC W/ DIFFE RENTI AL, W/ PLATE LET segmented neutrophils 62.7 % Autom ated Diff Not Available [facility] [address] [place] [address], [address], 05/19/2023 21:32:50 05/19/20 23 05/19/2023 CBC W/ DIFFE RENTI AL, W/ PLATE LET lymphocytes 22.9 % Not Available [facility] [address] [place] [address], [address], 05/19/2023 21:32:50 05/19/20 23 05/19/2023 CBC W/ DIFFE RENTI AL, W/ PLATE LET monocytes 11.4 % Not Available [employer] [facility] [address] [place] [address], [address], 05/19/2023 21:32:50 05/19/20 23 05/19/2023 CBC W/ DIFFE RENTI AL, W/ PLATE LET eosinophils 2.0 % Not Available [facility] [address] [place] [address], [address], 05/19/2023 21:32:50 05/19/20 23 05/19/2023 CBC W/ DIFFE RENTI AL, W/ PLATE LET basophils 0.8 % Not Available [facility], [address], [address], 05/19/2023 21:32:50 05/19/20 23 05/19/2023 CBC W/ DIFFE RENTI AL, W/ PLATE LET absolute neutrophil 3.84 k/uL 1.60 - 9.30 normal Not Available [facility], [address], [address], 05/19/2023 21:32:50 05/19/20 23 05/19/2023 CBC W/ DIFFE RENTI AL, W/ PLATE LET absolute lymphocyte 1.40 k/uL 0.60 - 5.50 normal Not Available [facility], [address], [address], 05/19/2023 21:32:50 05/19/20 23 05/19/2023 CBC W/ DIFFE RENTI AL, W/ PLATE LET absolute monocyte 0.70 k/uL 0.10 - 1.60 normal Not Available [facility], [address], [address], 05/19/2023 21:32:50 05/19/20 23 05/19/2023 CBC W/ DIFFE RENTI AL, W/ PLATE LET absolute eosinophil 0.12 k/uL 0.00 - 0.70 normal Not Available [facility], [address], [address], 05/19/2023 21:32:50 05/19/20 23 05/19/2023 CBC W/ DIFFE RENTI AL, W/ PLATE LET absolute basophil 0.05 k/uL 0.00 - 0.20 normal Not Available [facility], [address], [address], 05/19/2023 21:32:50 05/19/20 23 05/19/2023 CBC W/ DIFFE RENTI AL, W/ PLATE LET immature granulocytes 0.2 % Not Available [facility] [facility], [address], 05/19/2023 21:32:50 05/19/20 23 05/19/2023 CBC W/ DIFFE RENTI AL, W/ PLATE LET absolute immature granulocytes 0.01 k/uL 0.00 - 0.10 normal Not Available [facility] [address], [address], 05/19/2023 21:32:50 05/19/20 23 05/19/2023 CBC W/ DIFFE RENTI AL, W/ PLATE LET NRBC re, nucleated red blood cell percent 0.0 % 0.0 - 1.0 normal Not Available [facility] [address] [place] [address], [address], 05/19/2023 21:32:50 05/19/20 23 05/19/2023 CREAT ININE , URINE , RANDO M creatinine, urine, random 29 mg/dL 19 - 280 normal Not Available [facility] [address] [place] [address], [address], 05/19/2023 21:32:50 05/19/20 23 05/19/2023 RENAL FUNCT ION PANEL W/EGF R glucose 92 mg/dL 70 - 99 normal Gluco se refer ence range refle cts fasti ng state . Not Available [facility] [address] [place] [address], [address], 05/19/2023 21:32:51 05/19/20 23 05/19/2023 RENAL FUNCT ION PANEL W/EGF R urea nitrogen (BUN) 16 mg/dL 7 - 28 normal Not Available [facility] [address] [place] [address], [address], 05/19/2023 21:32:51 05/19/20 23 05/19/2023 RENAL FUNCT ION PANEL W/EGF R creatinine 0.85 mg/dL 0.51 - 1.08 normal Not Available [facility], [place] [address] [address], [address], 05/19/2023 21:32:51 05/19/20 23 05/19/2023 RENAL FUNCT ION PANEL W/EGF R egfrcr CKD-epi 75 mL/mi n/1.7 3m2 >=60 normal eGFRc r calcu lated using the CKD-E PI 2020 equat ion Not Available [facility], [address], [address], 05/19/2023 21:32:51 05/19/20 23 05/19/2023 RENAL FUNCT ION PANEL W/EGF R BUN/creatini ne ratio 18.8 10.0 - 28.0 normal Not Available [facility], [place] [address] [address], [address], 05/19/2023 21:32:51 05/19/20 23 05/19/2023 RENAL FUNCT ION PANEL W/EGF R sodium 144 mmol/ L 135 - 145 normal Not Available [facility], [address], [address], 05/19/2023 21:32:51 05/19/20 23 05/19/2023 RENAL FUNCT ION PANEL W/EGF R potassium 4.2 mmol/ L 3.6 - 5.3 normal Not Available [facility], [address], [address], 05/19/2023 21:32:51 05/19/20 23 05/19/2023 RENAL FUNCT ION PANEL W/EGF R chloride 104 mmol/ L 95 - 109 normal Not Available [facility], [address], [address], 05/19/2023 21:32:51 05/19/20 23 05/19/2023 RENAL FUNCT ION PANEL W/EGF R carbon dioxide (co2) 29 mmol/ L 20 - 31 normal Not Available [facility], [address], [address], 05/19/2023 21:32:51 05/19/20 23 05/19/2023 RENAL FUNCT ION PANEL W/EGF R albumin 4.4 g/dL 3.8 - 5.1 normal Not Available [facility], [address], [address], 05/19/2023 21:32:51 05/19/20 23 05/19/2023 RENAL FUNCT ION PANEL W/EGF R calcium 9.4 mg/dL 8.7 - 10.4 normal Not Available [facility], [address], [address], 05/19/2023 21:32:51 05/19/20 23 05/19/2023 RENAL FUNCT ION PANEL W/EGF R phosphorus (inorganic) 3.7 mg/dL 2.4 - 4.8 normal Not Available [facility], [address], [address], 05/19/2023 21:32:51 05/19/20 23 05/19/2023 URINE ALBUM IN, RANDO M urine albumin, random 38 mg/L not establ ished Not Available [facility], [address], [address], 05/19/2023 21:32:51 05/19/20 23 05/19/2023 URINE ALBUM IN, RANDO M urine albumin/urin e creatinine ratio 131 mg/g_ creat <=29 high Album inuri a Categ ories in Chron ic Kidne y Disea se Urine Album in/Ur ine Creat inine Ratio (mg/g Creat inine ): Chris l/Mil d Incre ase: <30 mg/g Creat inine Moder ately Incre ased: 30-30 0 mg/g Creat inine Sever lisette Incre ased: >300 mg/g Creat inine Urine album in and creat inine have high biolo gical varia tion and may be affec sofia by other patho logic al and/o r physi ologi jake event s, to inclu de age, sex, race, exerc ise, uprig ht postu re, UTI, and septi cemia . Patie nts with value s betwe en 30 and 300 mg/g shoul d under go addit ional tests withi n 2 month s to confi rm album inuri a. Colle ct these addit ional sampl es 1-2 weeks apart , ideal ly as a first morni ng speci men. The eleva tion of 2 out of 3 of these speci mens is indic ative of prolo nged album inuri a. Kidne y Inter Supp. 2013; 3:1-1 50 Not Available [employer] [facility], [address], 05/19/2023 21:32:51 05/19/20 23 05/19/2023 PROTE IN, URINE , RANDO M, CHRIS LIZED protein, urine, random 12 mg/dL not establ ished Not Available [facility], [employer] [address], [address], 05/19/2023 21:32:52 05/19/20 23 05/19/2023 PROTE IN, URINE , RANDO M, CHRIS LIZED protein, urine, normalized 414 mg/g_ creat 15 - 220 high Not Available [employer] [address], [address], 05/19/2023 21:32:52 05/19/20 23 05/19/2023 URINA LYSIS COMPL ETE WBC, urine 0-5 /hpf 0-5 normal Not Available [employer] [facility], [address], 05/19/2023 21:32:52 05/19/20 23 05/19/2023 URINA LYSIS COMPL ETE RBC, urine 0-2 /hpf 0-2 normal Not Available [facility], [address], [address], 05/19/2023 21:32:52 05/19/20 23 05/19/2023 URINA LYSIS COMPL ETE epithelial cells, urine 0-2 /hpf 0-2 normal Not Available [facility], [address], [address], 05/19/2023 21:32:52 05/19/20 23 05/19/2023 URINA LYSIS COMPL ETE bacteria, urine None Seen /hpf none seen normal Not Available [facility], [address], [address], 05/19/2023 21:32:52 05/19/20 23 05/19/2023 URINA LYSIS COMPL ETE hyaline casts 0-2 /lpf 0-2 normal Not Available [facility], [address], [address], 05/19/2023 21:32:52 05/19/20 23 05/19/2023 URINA LYSIS COMPL ETE color, urine Normal normal normal Not Available [employer], [address], [address], 05/19/2023 21:32:52 05/19/20 23 05/19/2023 URINA LYSIS COMPL ETE clarity, urine Clear clear normal Not Available [facility], [address], [address], 05/19/2023 21:32:52 05/19/20 23 05/19/2023 URINA LYSIS COMPL ETE specific gravity, urine 1.012 1.005 - 1.030 normal Not Available [facility], [address], [address], 05/19/2023 21:32:52 05/19/20 23 05/19/2023 URINA LYSIS COMPL ETE leukocyte esterase, urine qualitative Negati ve negati ve normal Not Available [facility], [address], [address], 05/19/2023 21:32:52 05/19/20 23 05/19/2023 URINA LYSIS COMPL ETE nitrite, urine qualitative Negati ve negati ve normal Not Available [facility], [address], [address], 05/19/2023 21:32:52 05/19/20 23 05/19/2023 URINA LYSIS COMPL ETE pH, urine 5.5 5.0 - 8.0 normal Not Available [facility], [address], [address], 05/19/2023 21:32:52 05/19/20 23 05/19/2023 URINA LYSIS COMPL ETE blood, urine qualitative Negati ve negati ve normal Not Available [facility], [address], [address], 05/19/2023 21:32:52 05/19/20 23 05/19/2023 URINA LYSIS COMPL ETE glucose, urine qualitative 250 mg/dL negati ve high Not Available [facility], [address], [address], 05/19/2023 21:32:52 05/19/20 23 05/19/2023 URINA LYSIS COMPL ETE ketones, urine qualitative Negati ve negati ve normal Not Available [facility], [address], [address], 05/19/2023 21:32:52 05/19/20 23 05/19/2023 URINA LYSIS COMPL ETE urobilinogen , urine qualitative Normal eu/dL normal normal Not Available [facility], [facility] [address], [address], 05/19/2023 21:32:52 05/19/20 23 05/19/2023 URINA LYSIS COMPL ETE bilirubin, urine qualitative Negati ve negati ve normal Not Available [facility] [address] [facility] [address], [place], [address], 05/19/2023 21:32:52 05/19/20 23 05/19/2023 URINA LYSIS COMPL ETE protein, urine qualitative Negati ve mg/dL negati ve normal Not Available [facility] [address], [address], 05/19/2023 21:32:52 01/22/[address], abdom en + pelvi s, w/o contr ast No observ ation record ed. [email or web address] Not Available 2021 14:07:32 Result Notes None recorded. Procedures Surgical History Date Name Laterality Status Provider Name and Address Organization Details Recorded Time 04/24/20 22 Retroperitoneal Ultrasound completed Simon Srinivasan MD [address] [facility],[address], [place], [address], [facility], [facility] 04/25/2022 12:22:03 09/29/19 21 open reduction of fracture of femur completed [facility], [facility] 01/23/2022 16:46:35 10/01/19 20 carotid endarterectomy completed [facility], [facility] 01/23/2022 16:47:32 03/03/20 14 lobectomy of lung completed [facility], [facility] 01/23/2022 16:51:13 Imaging Results Imaging Date Name Status LastModified by Organiz ation Details LastModified Time 01/21/2022 CT, abdomen + pelvis, w/o contrast completed [email or web address] Information not available 02/05/2022 14:07:32 Procedure Notes None recorded. Medical Equipment None Reported. Allergies Allergen ID Allergen Name Allergen Category Reaction Reaction Severity Criticality Documentation Date Start Date Code Code System Note Provider Name and Address Organization Details Recorded Time 221898 acetamino phen / hydrocodo ne medicatio n Not available Not available Not available 01/23/2022 10147 2 RxNorm Penny Cheng [facility], [facility] 2 16:39:28 [id number] acetamino phen / oxycodone medicatio n Not available Not available Not available 01/23/2022 36429 3 RxNorm Penny Cheng [facility], [facility], [facility] 2 16:39:39 Medications Name Sig Start Date Stop Date Status Note LastModified by Organization Details LastModified Time amoxicillin 500 mg capsule for dental prophylax is 04/29 completed Not Available Not Available Not Available prednisone 10 mg tablet TAKE 1 TABLET BY MOUTH EVERY DAY active Not Available Not Available No t Available doxycycline hyclate 100 mg capsule active Not Available Not Available N ot Available tizanidine 2 mg tablet 10/24 completed Not Available Not Available Not Available ammonium lactate 12 % lotion APPLY TOPICALLY TO THE AFFECTED AREA OF SKIN TWICE DAILY MOISTURIZ ER active Not Available Not Available No t Available azithromyci n 250 mg tablet TAKE 2 TABLETS BY MOUTH FOR 1 DAY THEN TAKE 1 TABLET BY MOUTH DAILY FOR 4 DAYS 05/27 completed Not Available Not Available Not Available ofloxacin 0.3 % eye drops INSTILL 1 DROP IN LEFT EYE FOUR TIMES DAILY FOR 5 DAYS active Not Available Not Available No t Available prednisone 20 mg tablet active Not Available Not Available Not Available prednisone 5 mg tablet 05/27 completed Not Available Not Available Not Available valsartan 80 mg tablet Take 1 tablet every day by oral route. active Not Available Not Available No t Available potassium chloride ER 10 mEq tablet,exte nded release TAKE 1 TABLET BY MOUTH EVERY DAY active Not Available Not Available No t Available acetaminoph en 300 mg-codeine 30 mg tablet active Not Available Not Available Not Available amlodipine 5 mg tablet 05/27 completed Not Available Not Available Not Available triamcinolo ne acetonide 0.1 % topical cream 04/29 completed Not Available Not Available Not Available cephalexin 500 mg capsule TAKE 1 CAPSULE BY MOUTH TWICE DAILY active Not Available Not Available No t Available pantoprazol e 40 mg tablet,prince yed release 10/24 completed Not Available Not Available Not Available metformin 1,000 mg tablet BID active Not Available Not Available Not Available polymyxin B sulfate 10,000 unit-trimet hoprim 1 mg/mL eye drops INSTILL 1 DROP IN LEFT EYE EVERY 3 HOURS FOR 7 DAYS active Not Available Not Available No t Available fluticasone 500 mcg-salmete rol 50 mcg/dose blistr powdr for inhalation active Not Available Not Available N ot Available montelukast 10 mg tablet TAKE 1 TABLET BY MOUTH DAILY active Not Available Not Available No t Available furosemide 20 mg tablet 1 po PRN active Not Available Not Available Not Available cefuroxime axetil 500 mg tablet 05/27 completed Not Available Not Available Not Available levofloxaci n 750 mg tablet 01/23 completed Not Available Not Available Not Available amoxicillin 875 mg-potassiu m clavulanate 125 mg tablet 10/24 completed Not Available Not Available Not Available valsartan 160 mg tablet TAKE 1/2 TABLET BY MOUTH EVERY DAY 05/27 completed Not Available Not Available Not Available olmesartan 5 mg tablet 10/24 completed Not Available Not Available Not Available azithromyci n 500 mg tablet three times a week active Not Available Not Available No t Available cyclobenzap rine 5 mg tablet 10/24 completed Not Available Not Available Not Available rosuvastati n 40 mg tablet 1 PO QD active Not Available Not Available Not Available hydrochloro thiazide 12.5 mg tablet active Not Available Not Available Not Available Farxiga 5 mg tablet Take 1 tablet every day by oral route. active Not Available Not Available No t Available Spiriva Respimat 1.25 mcg/actuati on solution for inhalation 04/29 completed Not Available Not Available Not Available oxygen gas for inhalation Inhale by inhalatio n route. active Not Available Not Available No t Available Trelegy Ellipta 100 mcg-62.5 mcg-25 mcg powder for inhalation 10/24 completed Not Available Not Available Not Available BinaxNOW COVID-19 Ag Self Test kit TEST DIRECTED TODAY 05/27 completed Not Available Not Available Not Available Vitals Date Recorded Body height Body mass index (BMI) Body weight Systolic blood pressure Diastolic blood pressure Provider Name and Address Organization Details Last Updated DateTime 05/27/2023 167.64 cm 37.1 kg/m2 539695.5 3 g 159 mm[Hg] 77 mm[Hg] Katt Regan [facility], [facility] 15:47:42 Date Recorded Body weight Body mass index (BMI) Body height Provider Name and Address Organization Details Last Updated DateTime 01/23/2022 641187.17 g 38.7 kg/m2 167.64 cm Penny Prosper [facility], [facility] 01/23/2022 16:38:58 Date Recorded Heart rate Systolic blood pressure Diastolic blood pressure Provider Name and Address Organization Details Last Updated DateTime 01/23/2022 72 /min 108 mm[Hg] 62 mm[Hg] Karuna Santa MD [address] [facility],[address], [place], [address], [facility], [facility] 01/23/2022 17:07:45 Date Recorded Body height Body mass index (BMI) Body weight Systolic blood pressure Diastolic blood pressure Provider Name and Address Organization Details Last Updated DateTime 10/24/2022 167.64 cm 38.4 kg/m2 011467.2 7 g 108 mm[Hg] 57 mm[Hg] Katt Regan [facility], [facility] 10:11:37 Social History Question Answer Notes LastModified by Organizat ion Details LastModified Time Tobacco Smoking Status [facility] 01/23/2022 16:44:56 What Is Your Level Of Alcohol Consumption? Occasional [email or web address] Information not available 01/23/2022 Are You Blind Or Do You Have Difficulty Seeing? No Information not available 10/24/2022 What Is Your Level Of Caffeine Consumption? Occasional Information not available 01/23/2022 In The 14 Days Before Symptom Onset, Have You Had Close Contact With A Laboratory-confir med COVID-19 While That Case Was Ill? No Information not available 10/24/2022 In The 14 Days Before Symptom Onset, Have You Had Close Contact With A Person Who Is Under Investigation For COVID-19 While That Person Was Ill? No Information not available 10/24/2022 Have You Been To An Area Known To Be High Risk For COVID-19? No Information not available 10/24/2022 Are You Currently Employed? No Information not available 10/24/2022 Are You Deaf Or Do You Have Serious Difficulty Hearing? No Information not available 10/24/2022 What Type Of Diet Are You Following? REGULAR Information not available 10/24/2022 What Is Your Relationship Status? [email or web address] Information not available 01/23/2022 At What Age Did You Start Smoking Tobacco? 16 [email or web address] Information not available 01/23/2022 Do You Use Any Illicit Or Recreational Drugs? No [email or web address] Information not available 01/23/2022 Sex: Unknown Functional Status Question Answer Note LastModified by Organizat ion Details LastModified Time Do you have difficulty walking or climbing stairs? No Information not available 10/24/2022 Do you have transportation difficulties? No Information not available 10/24/2022 Do you have difficulty doing errands alone? No Information not available 10/24/2022 Are you able to care for yourself? Yes Information not available 10/24/2022 Do you have difficulty dressing or bathing? No Information not available 10/24/2022 What is your exercise level? None Information not available 10/24/2022 Mental Status Question Answer Note LastModified by Organization D etails LastModified Time Do you have difficulty concentrating, remembering or making decisions? No Information no t available 10/24/2022 Family History Relationship Description Onset Age of this Age Resolved Age Notes LastModified by Organization Details LastModified Time Mother Pulmonary embolism [email or web address] Not available 12/29 16:43:27 Brother Myocardial infarction [email or web address] Not available 16:44:10 Medical History Condition Response Hemodialysis Access: Fistula OR Catheter N Coronary Artery Disease N Kidney Stones N PD catheter present N CKD 4 - Education Session 2 N CKD 4 - Education Session 5 N Echo EF N COPD Y CKD 4 - Education Session 6 N Kidney Failure Risk Equation N CKD 4 - Education Session 3 N Kidney Transplant N GFR at Dialysis Start N PD Education Referral N CCM Discharge Reason N Access Education Referral N CKD 4 - Education Session 1 N Acid Reflux (GERD) N Cancer N NSAIDs use N Stroke N Polycystic Kidney Disease N ESRD Onset Date N Dialysis Decision/MD Education N CCM Discharge Date N Dialysis Modality N Access placement referred (PD/AVF) N Hepatitis C N Anemia N Dialysis Start - Office OR Hospital N Peripheral Vascular Disease (PVD) N Kidney Disease (CKD) N Transplant Referral N Diabetes Type 2 Y CKD 4 - Education Session 4 N AVF present N CHF N Hyperlipidemia N CKD Education Referral N Stage Appropriate Patient Referral Refus al N Asthma N Hepatitis B N Lupus N Sleep Apnea N Diabetes Type I N Hypertension Y Gynecological HistoryNo gynecological history recorded. Obstetrics History GPAL:G 0 P 0 0 0 0 Immunizations Vaccine Type Date Status Note Provider Nam e and Address Organization Details Recorded Time Pneumococcal conjugate PCV20, polysaccharide [id number] conjugate, adjuvant, PF 0 completed Not Available [facility] 01/03/2023 03:00:58 COVID-19, mRNA, LNP-S, PF, 30 mcg/0.3 mL dose 1 completed Penny salazar [facility], [facility] 01/23/2022 16:41:46 Influenza, split virus, quadrivalent, preservative 1 completed Penny salazar [facility], [facility] 01/23/2022 16:42:06 Past Encounters Encounter ID Performer Location Encounter Start Date Encounter Closed Date Diagnosis/Indication Diagnosis SNOMED-CT Code Diagnosis ICD10 Code Diagnosis Note [id number] Karuna Santa MD [facility] [place] [address] [place] [address] 01/23/2022 16:05:50 01/23/2022 17:37:18 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 She has been a smoker too.Patien t is on low dose Olmesartan .No serology workup needed at this time. Will order if patient has hematuria Chronic ob structive pulmonary disease 54248994 J44.9 On home oxygen Type 2 kwame betes mellitus 29880908 E11.21 goal of hemoglobin A1c is between 6 and 7 [id number] Simon Srinivasan MD [facility] [address] [place] [address] 04/24/2022 14:14:37 04/24/2022 15:23:29 Microalbuminuric diabetic nephropathy 236619641 E11.21 [id number] Karuna Santa MD [facility] [address] [place] [address] [place] [address] 10/24/2022 10:02:29 10/24/2022 10:28:38 Microalbuminuric diabetic nephropathy 444509373 E11.21 Proteinuri a 1321 mg.Creatin ine is 0.7 mg/dL with a creatinine clearance of 74 mL per minute.Mos t likely cause of her proteinuri a is diabetes. She has been a smoker too.Patidionicio cruz is on valsartan. No serology workup needed at this time. No hematuria Chronic ob structive pulmonary disease 13335745 J44.9 On home oxygen Type 2 kwame betes mellitus 16727971 E11.21 goal of hemoglobin A1c is between 6 and 7.Proteinu cynthia quantified at 1.3 gm.Start farxiga. Proteinuri c kidney disease with risk of progressio n of CKD. Malignant tumor of rectum 001417586 C20 Chronic ki dney disease stage 1 677466356 N18.1 Proteinuri a with diabetes. At risk of progressio n of CKD. [id number] MD WILIAM Paz [facility] brian [address] [place] [address] 05/27/2023 15:46:20 05/27/2023 17:23:05 Microalbuminuric diabetic nephropathy 189195968 E11.21 Proteinuri a 1321->414 mg.Creatin ine is 0.8 mg/dL with a creatinine clearance of 74 mL per minute.Mos t likely cause of her proteinuri a is diabetes. She has been a smoker too.Krish cruz is on valsartan. and farxigaNo serology workup needed at this time. No hematuria Chronic ob structive pulmonary disease 88303441 J44.9 On home oxygen. Hospitaliz ed for COPD exacerbati on. Type 2 kwame betes mellitus 04707525 E11.21 goal of hemoglobin A1c is between 6 and 7.Proteinu cynthia quantified at 1.3 gm->414 mgContinue farxiga. Proteinuri c kidney disease with risk of progressio n of CKD. Malignant tumor of rectum 464815608 C20 Chronic ki dney disease stage 1 609491226 N18.1 Proteinuri a with diabetes. At risk of progressio n of CKD. Health Concerns Section Related Observation LastModified by Organization Detai ls LastModified Time None Recorded Concern Status LastModified by Organization Details LastModified Time None Recorded Advance Directives Directive None Recorded Payers Encounter Date Sequence Insurance Name Policy Number Policy Fisher Covered Member ID Fisher Member ID Guarantor Name 01/23/2022 1 [place] Luz Richardson [id number] Luz Richardson 01/23/2022 2 [employer] (MEDICARE SUPPLEMENT) Luz Richardson [id number] Luz Richardson 04/24/2022 1 [place] Luz Richardson [id number] Luz Richardson 04/24/2022 2 [employer] (MEDICARE SUPPLEMENT) Luz Richardson [id number] Luz Richardson 10/24/2022 1 [place] Luz Richardson [id number] Luz Richardson 10/24/2022 2 [employer] (MEDICARE SUPPLEMENT) Luz Resendizjillian [id number] Luz Richardson 05/27/2023 1 [place] Luz Richardson [id number] Luz Richardson 05/27/2023 2 [employer] (MEDICARE SUPPLEMENT) Luz Resendizjillian [id number] Luz Richardson Notes Date Note Type Note Provider Name and Address Organization Details Recorded Time 01/23/2022 text/html Ms. Escobar is a 66-year-old woman with past medical history of type 2 diabetes for more than 10 years, COPD on home oxygen who has been referred to me for proteinuria.Patient says her BP stays on the low side. She is on 5 mg of OlmesartanHer diabetes is fairly controlled with last hemogloobin A1c of 6.4.Patient had a 24-hour urine collection which showed a proteinuria quantified at 186 mg.Creatinine is 0.7 mg/dL with a creatinine clearance of 74 mL per minute.Patient denies taking any chronic NSAIDs. Karuna Santa MD [address], [place], [address], [facility] 01/23/2022 19:24:29 10/24/2022 text/html Ms. Escobar is a 67-year-old woman with past medical history of DM, HTN, HPLD, rectal cancer in 2006 (w mets to lung, sp surgery, chemo and radiation) primary lung cancer dx 10/2020 (s/p radiation) and proteinuria.Patient says her BP stays on the low side. She is on 5 mg of OlmesartanHer diabetes is fairly controlled with last hemogloobin A1c of 6.4.Patient had a 24-hour urine collection which showed a proteinuria quantified at 186 mg.Creatinine is 0.7 mg/dL with a creatinine clearance of 74 mL per minute.Patient denies taking any chronic NSAIDs. dmitted to the hospital in Aug, 2022 with SOB, cough, chest pain febrile 101.5F, tachycardic, mildly hypoxic. CTA chest with no evidence of pulmonary emboli. Increased consolidation versus atelectasis in the left lower lobe. Increase in the nodular component involving a lesion in the right upper lobe posteriorly which has known biopsy proven adenocarcinoma. Moderate emphysema.Was on antibiotics.Creatin ine is 0.87 mg/dl.Proteinuria 1.3 gm. Karuna Santa MD [address], [place], [address], [facility] 10/24/2022 13:23:27 05/27/2023 text/html Ms. Escobar is a 67-year-old woman with past medical history of DM, HTN, HPLD, rectal cancer in 2006 (w mets to lung, sp surgery, chemo and radiation) primary lung cancer dx 10/2020 (s/p radiation) and proteinuria.Patient says her BP stays on the low side. She is on 5 mg of OlmesartanHer diabetes is fairly controlled with last hemogloobin A1c of 6.4.Patient had a 24-hour urine collection which showed a proteinuria quantified at 186 mg.Creatinine is 0.7 mg/dL with a creatinine clearance of 74 mL per minute.Patient denies taking any chronic NSAIDs. dmitted to the hospital in Aug, 2022 with SOB, cough, chest pain febrile 101.5F, tachycardic, mildly hypoxic. CTA chest with no evidence of pulmonary emboli. Increased consolidation versus atelectasis in the left lower lobe. Increase in the nodular component involving a lesion in the right upper lobe posteriorly which has known biopsy proven adenocarcinoma. Moderate emphysema.Was on antibiotics.Creatin ine is 0.87 mg/dl.Proteinuria 1.3 gm. April 2023.Patient is currently hospitalized for shortness of breath. The creatinine is stable at 0.8 mg/dL and proteinuria has improved from 1.3 g to 414 mg. Patient is taking Farxiga. Karuna Santa MD [address], [place], [address], [facility] 05/27/2023 17:19:25 OBGyn Episode No OBEpisode recorded.
--- OUTSIDE RECORDS SUMMARY | 2024-10-30 12:25 | XMS_ITS | Clinical Summary ---
Author Organization [facility] Address [place], [place] [address] Care Team Providers Care Director Social Welfare Name Role Phone Pcp, No Primary Care [...] PART A HB ONLY [place] [address] Care Teams Director Social Welfare Relationship Specialty Start Date End Date Pcp, No . PCP - General 04/27/24
[2024-10-30 12:28] LABS: HCO3 VBG 30 mmol/L (21-28); PCO2 VBG 52 mmHG (40-50); PO2 VBG 37.4 mmHG (25-47); pH VBG 7.361 (7.32-7.43)
[2024-10-30 12:30] LABS: Basophils Absolute Auto 0.02 K/uL (0.00-0.30); Basophils Percent Auto 0.4 % (0.0-3.0); Eosinophils Absolute Auto 0.06 K/uL (0.00-0.50); Eosinophils Percent Auto 1.1 % (0.0-7.0); Hematocrit* 42.1 % (33.0-51.0); Hemoglobin* 13.3 gm/dL (12.0-16.0); Immature Granulocytes Abs Auto 0.01 K/uL (0.00-0.30); Immature Granulocytes Pct Auto 0.2 %; Lymphocytes Percent Auto 6.1 % (20-44); Mean Corpuscular HGB Conc 32 gm/dL (32-36); Mean Corpuscular Hemoglobin 29 pg (26-34); Mean Corpuscular Volume 92 fL (80-100); Monocytes Percent Auto 6.7 % (0.0-11.0); Neutrophils Percent Auto 85.5 % (42.0-72.0); Platelet Count* 153 K/uL (140-440); RDW Coefficient of Variation % 13.3 % (11.5-15.5); White Blood Count* 5.38 K/uL (4.50-11.00)
[2024-10-30 12:33] LABS: Slide Review Reflex No
[2024-10-30 12:51] LABS: INR 0.96 (0.91-1.10); Prothrombin Time 13.3 Seconds
[2024-10-30 12:52] LABS: Albumin* 4.4 g/dL (3.3-5.0); Chloride* 104 mmol/L (96-114); Partial Thromboplastin Time* 25 Seconds (23-33); Potassium* 4.2 mmol/L (3.6-5.1); Sodium* 140 mmol/L (135-149)
[2024-10-30 12:54] LABS: Bilirubin Total* 0.7 mg/dL (0.1-1.5); Creatinine* 0.7 mg/dL (0.5-1.5); D Dimer Quantitative* 0.91 ug/ml (0.00-0.50); Est. Creatinine Clearance* 48.45; Estimated Glomerular Filt Rate 94 ml/min
[2024-10-30 12:55] LABS: Alanine Aminotransferase* 19 U/L (4-35); Alkaline Phosphatase* 66 U/L (40-150); Anion Gap 7 mEq/L (7-15); Aspartate Amino Transferase* 26 U/L (12-35); Blood Urea Nitrogen* 17 mg/dL (7-30); Carbon Dioxide* 29 mmol/L (20-32); Glucose* 134 mg/dL (60-115); Total Protein* 7.1 g/dL (6.0-8.3)
[2024-10-30 12:56] LABS: Magnesium* 2.2 mg/dL (1.5-2.6)
[2024-10-30 12:59] LABS: C Reactive Protein* < 0.5 mg/dL (0.5-1.0)
[2024-10-30 13:10] LABS: NT Pro B Type NatriureticPept* 146 pg/mL; Troponin I* < 0.01 ng/mL (0.01-0.04)
[2024-10-30 13:16] LABS: PCR FLU A Negative PCR FLU A (Negative); PCR FLU B Negative PCR FLU B (Negative); PCR RSV Negative PCR RSV (Negative); SARS PCR* Negative SARS-CoV-2 (Negative)
== END 2024-10-30 15:17 | disposition home or self-care (01) ==
PROVIDERS: Emergency Provider Family Medicine; PCP Family Medicine
DX: J44.9 Chronic obstructive pulmonary disease, unspecified (principal)
CPT/HCPCS: 36415; 71275; 80053; 82803; 83735; 83880; 84484; 85025; 85379; 85610; 85730; 86140; 87637; 93005; 94761; 99284; 99285; Q9967

== ENCOUNTER 2025-01-04 12:49 | Outpatient (CLI) | payer MEDICARE, OTHER, SELFPAY ==
--- NOTE | 2025-01-04 13:00 | CRLHL7_ITS ---
For Patients: As a result of the Century Cures Act, medical imaging exams and procedure reports are released immediately into your electronic medical record. You may view this report before your referring provider. If you have questions, please contact your health care provider. INDICATION: Lung cancer. COMPARISON: CT pulmonary angiogram dated 30 October 2024. TECHNIQUE: CT scan of the abdomen and pelvis with 120 cc of Isovue-370 given intravenously. FINDINGS: The lung bases show mild bibasilar atelectasis. Probable focal fatty infiltration in segment 3 of the liver adjacent to the fissure for the falciform ligament. Two other areas of decreased attenuation in the medial aspect of segment 6 measuring up to 1.7 cm best seen on image is 51 and 57 of series 2 may also represent focal fatty infiltration but are incompletely assessed on this study. No other focal abnormalities identified in the visualized portions of the liver, spleen, pancreas, and adrenal glands. A few small probable cysts in the interpolar region of the right kidney measuring up to 7 mm are too small to completely characterize. The kidneys are otherwise unremarkable. No hydronephrosis. No uroliths. The GI tract is incompletely distended but shows no gross abnormalities. Normal appendix. No retroperitoneal, pelvic sidewall, or mesenteric adenopathy. Atherosclerotic vascular calcifications. Stabilization hardware in the left humerus and the lumbar spine. Degenerative changes of the spine. Small umbilical hernia contains fat. Impression : 1. A few small lesions in the liver may represent focal fatty infiltration but are incompletely assessed on this study. Recommend abdominal MRI for more complete evaluation. 2. No acute abnormalities of the abdomen or pelvis identified. Please note that all CT scans at this facility use dose modulation, iterative reconstruction, and/or weight-based dosing when appropriate to reduce radiation dose to as low as reasonably achievable. Dictated by Franky Yeung MD @ 01/05/2025 8:43:05 AM (Electronically Signed)
== END 2025-01-04 12:50 | disposition home or self-care (01) ==
PROVIDERS: PCP Family Medicine; Visit Provider Nurse Practitioner
DX: C34.91 Malignant neoplasm of unspecified part of right bronchus or lung (principal); K76.9 Liver disease, unspecified; K42.9 Umbilical hernia without obstruction or gangrene; C20 Malignant neoplasm of rectum
CPT/HCPCS: 74177; Q9967

== ENCOUNTER 2025-01-13 07:03 | Outpatient (CLI) | payer MEDICARE, OTHER, SELFPAY ==
--- NOTE | 2025-01-13 07:15 | CRLHL7_ITS ---
For Patients: As a result of the Century Cures Act, medical imaging exams and procedure reports are released immediately into your electronic medical record. You may view this report before your referring provider. If you have questions, please contact your health care provider. INDICATION: Possible focal fatty infiltration in the liver. COMPARISON: CT scan of the abdomen and pelvis dated 04 January 2025. TECHNIQUE: Abdominal MRI with T1 in- and out of phase, T2, diffusion weighted, and progressively delayed post-contrast images. Intravenous gadolinium administered. Findings : A few small areas focal fatty infiltration corresponding to the findings on the previous CT scan. No other focal abnormalities identified in the visualized portions of the liver, spleen, pancreas, and adrenal glands. A few very small cysts in the kidneys. The kidneys are otherwise unremarkable. No hydronephrosis. No adenopathy. Stabilization hardware in the lumbar spine. Impression : 1. A few small areas of focal fatty infiltration in the liver. 2. No suspicious enhancing liver lesions identified. Dictated by Franky Yeung MD @ 01/13/2025 10:52:35 AM (Electronically Signed)
[2025-01-14 08:30] LABS: Alpha Fetoprotein Tumor Marker 3 ng/mL (0-9)
[2025-01-15 12:11] LABS: Cancer Antigen-GI (CA 19-9) 30 U/mL (<=35)
== END 2025-01-13 07:04 | disposition home or self-care (01) ==
LOC: MRI 07:04
PROVIDERS: PCP Family Medicine; Visit Provider Radiology Radiation Oncology
DX: R97.8 Other abnormal tumor markers (principal); K76.0 Fatty (change of) liver, not elsewhere classified
CPT/HCPCS: 36415; 74183; 82105; 82378; 86301; A9575

== ENCOUNTER 2025-01-27 09:01 | Outpatient (RCR) | payer MEDICARE, OTHER, SELFPAY ==
[2025-01-27 09:44] LABS: Creatinine* 0.8 mg/dL (0.5-1.5); Estimated Glomerular Filt Rate 80 ml/min
== END 2025-07-26 23:59 | disposition home or self-care (01) ==
LOC: CCIC 09:01
PROVIDERS: Internal Medicine; PCP Family Medicine; Referring Provider Family Medicine; Visit Provider Internal Medicine Hematology & Oncology
DX: C20 Malignant neoplasm of rectum (principal); K76.89 Other specified diseases of liver
CPT/HCPCS: 36415; 82565; 99211

== ENCOUNTER 2025-05-03 18:13 | Emergency (ER) | payer MEDICARE, OTHER, SELFPAY ==
--- OUTSIDE RECORDS SUMMARY | 2025-03-17 14:48 | XMS_ITS | Encounter Summary ---
Author Organization [facility] Address [address] [place] [address] Care Team Providers Care Carton Forming Machine Operator Name Role Phone Kati Colin M.D. Primary Care Provider [phone] Reason for Visit * Reason Comments Illness Encounter Details Date Type Department Care Team (Late st Contact Info) Description 03/17/2025 2:48 PM CDT - 03/20/2025 3:51 PM CDT Emergency [facility] [address] [place] [address] Pneumonia (Primary Dx) Discharge Disposition: Home-Health Care Svc Social History Tobacco Use Types Packs/Day Years Used Date Smoking Tobacco: Former Cigarettes 0.8 94.4 0 09/29/1969 - 08/23/2018 Smokeless Tobacco: Never Comments:Quit smoking severa l times for several months Alcohol Use Standard Drinks/Week Comments Yes 1 (1 standard drink = 0.6 oz pur e alcohol) [facility] Utilities Answer Date Recorded In the past 12 months has th e electric, gas, oil, or water company threatened to shut off services in your home? No 12/26/2024 Humiliation, Afraid, Rape, a nd Kick questionnaire Answer Date Recorded Within the last year, have y ou been afraid of your partner or ex-partner? Patient unable to answer 12/26/2024 Within the last year, have y ou been humiliated or emotionally abused in other ways by your partner or ex-partner? Patient unable to answer 12/26/2024 Within the last year, have y ou been kicked, hit, slapped, or otherwise physically hurt by your partner or ex-partner? Patient unable to answer 12/26/2024 Within the last year, have y ou been raped or forced to have any kind of sexual activity by your partner or ex-partner? Patient unable to answer 12/26/2024 Hunger Vital Sign Answer Date Recorded Within the past 12 months, y ou worried that your food would run out before you got the money to buy more. Never true 12/27/19 Within the past 12 months, t he food you bought just didn't last and you didn't have money to get more. Never true 12/26/2024 PRAPARE - Transportation Answer Date Re corded In the past 12 months, has l ack of transportation kept you from medical appointments or from getting medications? No 11/29 In the past 12 months, has l ack of transportation kept you from meetings, work, or from getting things needed for daily living? No 12/26/2024 Housing Stability Answer Date Recorded What is your living situation today? 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 acetaminophen-codei ne (TylenoL #3) 300-30 mg per tablet Take 1 tablet by mouth every 4 (four) hours as needed. 5 albuterol 90 mcg/actuation inhaler Inhale 2 puffs every 6 (six) hours as needed for wheezing. 18 g 3 4 alendronate (Fosamax) 10 mg tablet Take 1 tablet (10 mg total) by mouth daily before morning meal. 90 tablet 3 5 ammonium lactate (Lac-Hydrin) 12 % lotion Apply 1 Application topically 2 (two) times a day. 4 B complex-vitamin (Super B-50) capsule Take 1 capsule by mouth daily. blood sugar diagnostic strips (Accu-Chek Guide test strips) 1 test daily. 100 each 11 5 blood-glucose meter (Accu-Chek Guide Glucose Meter) misc 1 Device as directed. 1 each 5 budesonide (Pulmicort) 1 mg/2 mL nebulizer solutionIndications :Asthma With Chronic Obstructive Pulmonary Disease (HCC) Inhale 2 mL (1 mg total) by nebulization 2 (two) times a day. Rinse mouth with water after use to reduce aftertaste and incidence of candidiasis. Do not swallow. 120 mL 11 5 cetirizine (ZyrTEC) 10 mg tablet Take 10 mg by mouth every morning. cholecalciferol, vitamin D3, (VITAMIN D3 ORAL) Take 2 gummies by mouth daily. Patient unsure of strength dapagliflozin propanediol (Farxiga) 5 mg tablet Take 5 mg by mouth daily. dextromethorphan-gu aiFENesin (Robitussin-DM) 10-100 mg/5 mL syrup Take 5 mL by mouth every 4 (four) hours as needed for cough. 235 mL 3 5 diclofenac sodium (Voltaren) 1 % gel Apply 2 g topically 4 (four) times a day as needed. 3 DME Oxygen 3 L by continuous inhalation route daily. DME OxygenIndications:C hronic Obstructive Pulmonary Disease Without Exacerbation (HCC) DME Order - for details see Order Report 1 each 4 DME OxygenIndications:C hronic Obstructive Pulmonary Disease Without Exacerbation (HCC),Chronic Respiratory Failure With Hypoxia (HCC) DME Order - for details see Order Report 1 each 5 DME OxygenIndications:C hronic Obstructive Pulmonary Disease Without Exacerbation (HCC),Chronic Respiratory Failure With Hypoxia (HCC) DME Order - for details see Order Report 1 each 5 ensifentrine (Ohtuvayre) 3 mg/2.5 mL suspension for nebulizationIndicat ions:Chronic Obstructive Pulmonary Disease Without Exacerbation (HCC) Inhale 3 mg 2 (two) times a day. 150 mL 11 5 ferrous sulfate 324 mg (65 mg iron) DR tablet Take 65 mg of iron by mouth daily. formoterol (Perforomist) 20 mcg/2 mL nebulizer solutionIndications :Chronic Obstructive Pulmonary Disease Without Exacerbation (HCC) Inhale 2 mL (20 mcg total) by nebulization 2 (two) times a day. 360 mL 3 4 glipiZIDE (GlucotroL XL) 2.5 mg 24 hr tablet TAKE 1 TABLET EVERY DAY WITH BREAKFAST 90 tablet 3 5 lancets 4 each 4 (four) times a day as needed (Diabetes). 100 each 11 5 lidocaine (Lidoderm) 5 % adhesive patch,medicatedIndi cations:Pain Back Place 1 patch on the skin daily. Apply to back daily. Keep patch on for 12 hours and take off for 12 hours. 30 patch 1 5 montelukast (Singulair) 10 mg tablet take 1 tablet by mouth daily 90 tablet 3 4 multivitamin tablet Take 1 tablet by mouth daily. OLANZapine (ZyPREXA) 5 mg tabletIndications:M alignant Neoplasm Of Lung Adenocarcinoma Right (HCC) Take 1 tablet (5 mg total) by mouth at bedtime as needed (nausea, vomiting). May take dose early if needed. 30 tablet 3 5 02/14/20 26 omeprazole (PriLOSEC) [address] capsule Take 1 capsule (20 mg total) by mouth daily before morning meal. 90 capsule 5 ondansetron (Zofran) 8 mg tabletIndications:M alignant Neoplasm Of Lung Adenocarcinoma Right (HCC) Take 1 tablet (8 mg total) by mouth every 8 (eight) hours as needed for nausea or vomiting (unrelieved by prochlorperazine) . 30 tablet 3 5 02/14/20 26 ondansetron ODT (Zofran-ODT) 4 mg disintegrating tablet Dissolve 4 mg in the mouth 3 (three) times a day as needed. 5 potassium chloride 10 mEq ER tablet Take 1 tablet by mouth daily. 4 predniSONE (Deltasone) 5 mg tablet Take 5 mg by mouth daily. prochlorperazine (Compazine) 10 mg tabletIndications:M alignant Neoplasm Of Lung Adenocarcinoma Right (HCC) Take 1 tablet (10 mg total) by mouth every 6 (six) hours as needed for nausea or vomiting. 30 tablet 3 5 02/14/20 26 revefenacin (Yupelri) 175 mcg/3 mL solution for nebulization nebulizer solutionIndications :Chronic Obstructive Pulmonary Disease Without Exacerbation (HCC) Inhale 3 mL (0.175 mg total) by nebulization daily. 270 mL 3 4 rosuvastatin (Crestor) 40 mg tablet Take 1 tablet by mouth at bedtime. 4 sulfamethoxazole-tr imethoprim (Bactrim) 400-80 mg per tabletIndications:A suresh With Chronic Obstructive Pulmonary Disease (HCC),Malignant Neoplasm Of Lung Adenocarcinoma Right (HCC) Take 1 tablet by mouth daily. 30 tablet 5 5 tiZANidine (Zanaflex) 2 mg tablet Take 2 mg by mouth every 8 (eight) hours as needed for muscle spasms. 5 valsartan (Diovan) 160 mg tablet Take 0.5 tablets (80 mg total) by mouth daily. 90 tablet 3 5 vitamins A,C,S-atne-seeiov (PreserVision AREDS) 7,160 Units-113 mg-100 Units per tablet Take 1 tablet by mouth 2 (two) times a day. acetaminophen-codei ne (TylenoL #3) 300-30 mg per tabletIndications:C hronic Pain/Nonacute Pain Take 1-2 tablets by mouth every 6 (six) hours as needed for pain Indications: Chronic Pain/Nonacute Pain. 20 tablet 5 03/24/20 25 azithromycin (Zithromax) 500 mg tablet 500 mg daily on M, W, F 36 tablet 3 4 04/12/20 25 furosemide (Lasix) 20 mg tablet Take 1 tablet (20 mg total) by mouth daily. M, W, F 90 tablet 3 4 04/22/20 25 levoFLOXacin (Levaquin) 750 mg tablet Take 750 mg by mouth. 5 04/12/20 25 predniSONE (Deltasone) 5 mg tabletIndications:A everardo With Chronic Obstructive Pulmonary Disease (HCC) Take 1 tablet (5 mg total) by mouth daily. 30 tablet 11 5 04/22/20 25 documented as of this encounter Plan of Treatment Upcoming Encounters Date Type Department Care Team (Latest Contact Info) Description 05/04/2025 8:45 AM CDT Clinical Communication Virtual Review in [place], [place] [address] [place] [phone] 05/04/2025 2:00 PM CDT Telemedicine Department of Oncology in [place], [place] [address], [place] [phone] Antoine Phillip M.D. [address] [place] [phone] 05/05/2025 3:20 PM CDT Telemedicine Department of Oncology in [place], [place] [address] [place] [phone] Lexi Phillip, ELECTRICAL SYSTEMS ENGINEER, C.N.P., D.N.P. [address] [place] [phone] 05/06/2025 1:10 PM CDT Comprehensive Visit Division of Gastroenterology in [place], [place] [address] [place] [phone] Kati Colin M.D. [address] [place] [phone] 05/12/2025 2:00 PM CDT Comprehensive Visit [facility] in [place], [place] [address] [place] [phone] Phil Dorman D.O., M.S. [address] [place] [phone] 08/09/2025 1:30 PM BOAT HOIST OPERATOR Office Visit Department of Sleep Medicine in [place], [place] [address], [place] [address] Sallie White APRN, C.N.P., D.N.P., M.S.N. [address] [address] Scheduled Procedures Name Priority Associated Diagnoses Date/Ti me BRONCHOSCOPY FLEXIBLE Chronic Obstructive Pulmonary Disease Without Exacerbation (HCC) Abnormal Computed Tomography Chest Chronic Cough 05/03/2025 12:47 PM CDT documented as of this encounter Procedures Procedure Name Priority Date/Time Associated Diagnosis Comments DX CHEST AP OR PA AND LATERAL 2 VIEWS RAD - Semiurgent (Fast; most ED patients; some inpatients) 03/17/2025 3:56 PM CDT documented in this encounter Results * DX Chest AP or PA and Lateral 2 Views (03/17/2025 3:56 PM CDT) Anatomical Region Laterality Modality Chest, Thoracic RST LOS, Tho racic ARZ LOS, Thoracic FLA LOS N/A Digital Radiography Impressions 03/17/2025 4:03 PM CDT Patchy pulmonary opacities left lower lung suspicious for developing consolidation. Recommend follow-up imaging in 6-8 weeks to ensure radiographic resolution. Unchanged right chest wall [id number]. Unchanged nodular opacity of the right upper lobe and additional opacity of the right upper lung. Normal heart size. Atherosclerotic vascular disease. March 07, 2025 comparison. Narrative 03/17/2025 4:03 PM CDT EXAM: DX CHEST AP OR PA AND LATERAL 2 VIEWS Procedure Note Perico Murrell M.D. - 03/17/2025 EXAM: DX CHEST AP OR PA AND LATERAL 2 VIEWS IMPRESSION: Patchy pulmonary opacities left lower lung suspicious for developingconsolidation. Recommend follow-up imaging in 6-8 weeks to ensureradiographic resolution. Unchanged right chest wall [id number].Unchanged nodular opacity of the right upper lobe and additional opacity of the right upper lung. Normal heart size.Atherosclerotic vascular disease. March 07, 2025 comparison. Gianna Mckinney P.A.-C. IMG DIAGNOSTIC IMAGIN G PROCEDURES Final Result documented in this encounter Visit Diagnoses Diagnosis Pneumonia- Primary documented in this encounter Additional Health Concerns Infection Onset Date Last Indicated Resolved Time Protective Environment 02/14/2025 02/14/202504/30 8:54 PM CDT Assessment Noted Time A fall risk assessment has been complete d for the patient 07/05/2024 4:06 PM CDT documented as of this encounter Care Teams Carton Forming Machine Operator Relationship Specialty Start Date End Date Kati Colin M.D. [address] [place] [phone] PCP - General Family Medicine 03/09/24 documented as of this encounter
--- OUTSIDE RECORDS SUMMARY | 2025-03-20 15:52 | XMS_ITS | Encounter Summary ---
Author Organization [facility] Address [address] [place] [id number] Care Team Providers Care Prison Classification Counselor Name Role Phone Kati Colin M.D. Primary Care Provider Reason for Visit * Reason Comments Fatigue Weakness - Generalized Encounter Details Date Type Department Care Team (Late st Contact Info) Description 03/20/2025 3:52 PM CDT - 03/20/2025 8:06 PM CDT Emergency [facility] Emergency Department [address] [place] [phone] Yogi Chavez M.D., M.B.A. [address] [place] [phone] Viral Syndrome (Primary Dx) Discharge Disposition: Home or Self Care Social History Tobacco Use Types Packs/Day Years Used Date Smoking Tobacco: Former Cigarettes 0.8 94.4 0 09/29/1969 - 08/23/2018 Smokeless Tobacco: Never Comments:Quit smoking severa l times for several months Alcohol Use Standard Drinks/Week Comments Yes 1 (1 standard drink = 0.6 oz pur e alcohol) [facility] Utilities Answer Date Recorded In the past 12 months has [employer], gas, oil, or water company threatened to [...] living situation today? I have a [facility] place to live 12/26/2024 Comments No Sex and Gender Information Value Date Recorded Sex Assigned at Female 05/07/2024 7:38 AM CDT Legal Sex Female 3:35 PM DUCT LAYER Gender Identity Female 05/07/2024 7:38 AM CDT Sexual Orientation Straight 05/07/2024 7: 38 AM CDT documented as of this encounter Last Filed Vital Signs Vital Sign Reading Time Taken Comments Blood Pressure 183/131 03/20/2025 6:45 PM CDT Pulse 94 03/20/2025 6:45 PM CDT Temperature 36.7 C (98.1 F) 03/20/2025 5:01 PM CDT Respiratory Rate 25 03/20/2025 6:45 PM CDT Oxygen Saturation 95% 03/20/2025 6:45 PM CDT Inhaled Oxygen Concentration - - Weight 105 kg (232 lb 9.4 oz) 03/20/2025 7:43 PM CDT Height - - Body Mass Index 37.56 02/10/2025 10:33 AM CDT documented in this encounter Discharge Instructions * Attachments The following attachments cannot be sent through Care Everywhere. * Viral Illness Adult (Belarusian) documented in this encounter Medications at Time of Discharge [...] sulfamethoxazole-tr imethoprim (Bactrim) 400-80 mg per tabletIndications:A stcrystal With Chronic Obstructive Pulmonary Disease (HCC),Malignant Neoplasm Of Lung Adenocarcinoma Right (HCC) Take 1 tablet by mouth daily. 30 tablet 5 5 tiZANidine (Zanaflex) 2 mg tablet Take 2 mg by mouth every 8 (eight) hours as needed for muscle spasms. 5 valsartan (Diovan) 160 mg tablet Take 0.5 tablets (80 mg total) by mouth daily. 90 tablet 3 5 vitamins A,C,H-vmzr-caahrn (PreserVision AREDS) 7,160 Units-113 mg-100 Units per [...] 04/22/20 25 documented as of this encounter ED Notes * Yogi Chavez M.D., M.B.A. - 03/20/2025 8:06 PM CDT SUBJECTIVE CHIEF COMPLAINT/REASON FOR VISIT Fatigue and Weakness - Generalized HISTORY OF PRESENT ILLNESS This is a 69-year-old female who presents for evaluation of shortness of breath with ambulation andgeneralized weakness. She lives at home with family and has had increasing burden on family to helpher with activities of daily living.. She was recently diagnosed with pneumonia at an outside emergency department on 03/17 and was started on levofloxacin. 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 She reports sick contacts at home, children with viral syndromes. OBJECTIVE Initial Vitals Temperature 03/20/25 1600 36.8 ??C Pulse Rate 03/20/25 1602 96 Heart Rate 03/20/25 1706 90 Resp Rate 03/20/25 1715 14 Blood Pressure 03/20/25 1614 110/80 SpO2 03/20/25 1602 94 % Pain Score 03/20/25 1659 6 PHYSICAL EXAMINATION Constitutional: Nursing note and vitals reviewed. Eyes: Right eye exhibits no discharge. Left eye exhibits no discharge. Neck: No tracheal deviation present. Cardiovascular: Pulses are palpable. Pulmonary/Chest: Effort normal. No stridor. No respiratory distress. She has no wheezes. She has kevin. Abdominal: Soft. exhibits no distension. There is no rebound and no guarding. Musculoskeletal: General: Normal range of motion. Neurological: Alert and oriented to person, place, and time. Skin: Skin is warm and dry. She is not diaphoretic. Psychiatric: Thought content normal. ASSESSMENT/PLAN 1. Generalized weakness 2. Recent pneumonia currently on levofloxacin Patient reports sick contacts at home, young children with viral illnesses. Here, COVID and influenza swabs are negative. However, my suspicion for viral syndrome remains high. Chest x-ray reveals nopneumonia, pneumothorax, or other notable intrathoracic etiology. However, I feel it is reasonable to complete her course of levofloxacin given the prior diagnosis of pneumonia. ECG reveals sinus rhythm with premature atrial complexes. No STEMI or STEMI equivalent. Troponins are flat over 2 hours and reassuring against ACS. Other than hypertension, the patient's vital signs are reassuring. I feel the patient can be safelyfollowed up in the outpatient setting. She has the ability to follow up closely and feels this is also reasonable. I did discuss and offer admission if she felt that she was unable to perform ADLs. She felt able to return home safely. She understands the discharge plan and reasons to return. All questions and concerns addressed. ED Course as of 03/21/251817 Mchenry Mar 20, 2025 184 Viral swabs are negative for COVID, influenza, and RSV. Final Diagnoses: as of 03/21/251817 Viral Syndrome Yogi Chavez M.D., M.B.A. 03/22/25 0039 * Silvano Meléndez, RGuilleN. - 03/20/2025 4:00 PM CDT Pt presents with increased weakness and SOB with ambulation. On 2L nc baseline, 6 L with ambulation. PT seen here , diagnosed with pneumonia. Pt feels unsafe walking around the house. Silvano Meléndez R.N. 03/20/25 1602 documented in this encounter Plan of Treatment Upcoming Encounters Date Type Department Care Team (Latest Contact Info) Description 05/04/2025 8:45 AM CDT Clinical Communication Virtual Review in [place], [place] [address] [place] [phone] 05/04/2025 2:00 PM CDT Telemedicine Department of Oncology in [place], [place] [address], [place] [phone] Antoine Phillip M.D. [address] [place] [phone] 05/05/2025 3:20 PM CDT Telemedicine Department of Oncology in [place], [place] [address] [place] [phone] Lexi Phillip APRN, CGuilleN.P., D.N.P. [address] [place] [phone] 05/06/2025 1:10 PM CDT Comprehensive Visit Division of Gastroenterology in [place], [place] [address] [place] [phone] Kati Colin M.D. [address] [place] [phone] 05/12/2025 2:00 PM CDT Comprehensive Visit Center for Sleep Medicine in [place], [place] [address] [place] [phone] Phil Dorman D.O., M.S. [address] [place] [phone] 08/09/2025 1:30 PM DUCT LAYER Office Visit Department of Sleep Medicine in [place], [place] [address] [place] [phone] Sallie White APRN, C.N.P., D.N.P., M.S.N. [address] [place] [phone] Scheduled Procedures Name Priority Associated Diagnoses Date/Ti me BRONCHOSCOPY FLEXIBLE Chronic Obstructive Pulmonary Disease Without Exacerbation (HCC) Abnormal Computed Tomography Chest Chronic Cough 05/03/2025 12:47 PM CDT documented as of this encounter Procedures Procedure Name Priority Date/Time Associated Diagnosis Comments TROPONIN T, 2H/6H REFLEX, 5TH GEN, P Timed 03/20/2025 7:10 PM CDT INFLUENZA A, B, RSV, PCR, RAPID, V STAT 03/20/2025 5:57 PM CDT SARS CORONAVIRUS 2, PCR RAPID, V STAT 03/20/2025 5:57 PM CDT TROPONIN T, BASELINE, 5TH GEN, P STAT 03/20/2025 4:47 PM CDT GLUCOSE POCT, B STAT 03/20/2025 4:47 PM CDT CBC WITH DIFFERENTIAL, B STAT 03/20/2025 4:47 PM CDT BASIC METABOLIC PANEL, S/P STAT 03/20/2025 4:47 PM CDT DX CHEST AP OR PA AND LATERAL 2 VIEWS RAD - Semiurgent (Fast; most ED patients; some inpatients) 03/20/2025 4:21 PM CDT ECG STAT 03/20/2025 3:59 PM CDT documented in this encounter Results * (ABNORMAL) Troponin T, 2 Hour with 6 Hour Reflex, 5th Gen (03/20/2025 7:10 PM CDT) Troponin T, 2 hr, 5th gen 22(H) <=10 ng/L 03/20/2025 7:35 PM CDT [facility] 2H Delta 1 ng/L 03/20/2025 7:35 PM CDT [facility] Comment:6 hour collection no t indicated. 2H Delta Interp Not Changing 03/20/2025 7:35 PM CDT [facility] Blood 03/20/2025 7:10 PM CDT 03/20/2025 7:15 PM CDT Vu Rocha P.A.-C. LAB BLOOD TROPONIN Final R esult Performing Organization Address City/[facility] Co de Phone Number [facility] [address] STMA [facility] 200 [place] [address] * Influenza A, B, RSV, PCR, Rapid (03/20/2025 5:57 PM CDT) Pathologist [facility] Influenza A, PCR, Rapid, V Negative Negative 03/20/2025 6:26 PM CDT [facility] Influenza B, PCR, Rapid, V Negative Negative 03/20/2025 6:26 PM CDT [facility] Resp Synctial Virus, PCR, Rapid Negative Negative 03/20/2025 6:26 PM CDT [facility] Specimen Source Swab, Nasopharynx 03/20/2025 6:26 PM CDT [facility] Swab (Nasopharynx) 03/20/2025 5:57 PM CDT 03/20/2025 6:02 PM CDT us Yogi Chavez M.D., M.B.A. LAB MICROBIOLOGY - GENERAL ORDERABLES Final Result Performing Organization Address City/[facility]/ZIP Co de Phone Number [facility] [address] 200 [place] [address] * SARS Coronavirus 2, PCR Rapid Symptomatic (03/20/2025 5:57 PM CDT) [facility] SARS CoV-2, PCR, Rapid, V Undetected Undetected 03/20/2025 6:27 PM CDT [facility] SARS Coronavirus 2, Rapid, Source Swab, Nasopharynx 03/20/2025 6:02 PM CDT [facility] Swab (Nasopharynx) 03/20/2025 5:57 PM CDT 03/20/2025 6:02 PM CDT Yogi Chavez M.D., M.B.A. LAB MICROBIOLOGY - GENERAL ORDERABLES Final Result Performing Organization Address City/[facility]/ZIP Co de Phone Number [facility] [address] 200 [place] [address] * (ABNORMAL) Troponin T, Baseline with 2 Hour/6 Hour Reflex Biomarker Panel (03/20/2025 4:47 PM CDT) [facility] Troponin T, Baseline, 5th gen 21(H) <=10 ng/L 03/20/2025 5:08 PM CDT [facility] Blood (Blood, Venous) 03/20/2025 4:47 PM CDT 03/20/2025 4:52 PM CDT us Yogi Chavez M.D., M.B.A. LAB BLOOD TROPONIN Final Result [facility] 200 [place] [address] * (ABNORMAL) CBC with Differential, Blood (03/20/2025 4:47 PM CDT) [facility] Hemoglobin 10.9(L) 11.6 - 15.0 g/dL 03/20/2025 4:56 PM CDT [facility] Hematocrit 34.4(L) 35.5 - 44.9 % 03/20/2025 4:56 PM CDT [facility] Erythrocytes 3.81(L) 3.92 - 5.13 x10(12)/L 03/20/2025 4:56 PM CDT [facility] MCV 90.3 78.2 - 97.9 fL 03/20/2025 4:56 PM CDT [facility] RBC Distrib Width 15.7 12.2 - 16.1 % 03/20/2025 4:56 PM CDT [facility] Platelet Count 100(L) 157 - 371 x10(9)/L 03/20/2025 4:56 PM CDT [facility] Leukocytes 1.9(L) 3.4 - 9.6 x10(9)/L 03/20/2025 4:56 PM CDT [facility] Neutrophils 1.50(L) 1.56 - 6.45 x10(9)/L 03/20/2025 4:56 PM CDT [facility] Lymphocytes 0.21(L) 0.95 - 3.07 x10(9)/L 03/20/2025 4:56 PM CDT [facility] Monocytes 0.13(L) 0.26 - 0.81 x10(9)/L 03/20/2025 4:56 PM CDT [facility] Eosinophils <0.03 0.03 - 0.48 x10(9)/L 03/20/2025 4:56 PM CDT [facility] Basophils <0.03 0.01 - 0.08 x10(9)/L 03/20/2025 4:56 PM CDT [facility] Blood (Blood, Venous) 03/20/2025 4:47 PM CDT 03/20/2025 4:52 PM CDT Yogi Chavez M.D., M.B.A. LAB BLOOD ADD-ON F inal Result [facility] [address] [place] [address], [facility] STMA [facility] [address] [place] [address] [facility] 200 [place] [address] * (ABNORMAL) Glucose, POCT (03/20/2025 4:47 PM CDT) Pathologist [facility] Glucose, POCT, B 142(H) 70 - 140 mg/dL 03/20/2025 4:50 PM CDT PCLX Comment: Glucose results collected from venous catheters may be falsely elevated. Site Venline 03/20/2025 4:50 PM CDT [facility] Blood (Blood, Capillary) 03/20/2025 4:47 PM CDT 03/20/2025 4:47 PM CDT Yogi Chavez M.D., M.B.A. LAB POCT ORDERABLE S-MANUAL Final Result [facility] 200 [place] [address], [facility] PCLX [facility] POC 200 [place] [address] * (ABNORMAL) Basic Metabolic Panel (03/20/2025 4:47 PM CDT) Pathologist [facility] Potassium, P 4.5 3.6 - 5.2 mmol/L 03/20/2025 5:09 PM CDT [facility] Sodium, P 141 135 - 145 mmol/L 03/20/2025 5:09 PM CDT [facility] Chloride, P 103 98 - 107 mmol/L 03/20/2025 5:09 PM CDT [facility] Bicarbonate, P 27 22 - 29 mmol/L 03/20/2025 5:09 PM CDT [facility] Anion Gap, P 11 7 - 15 03/20/2025 5:09 PM CDT [facility] BUN (Blood Urea Nitrogen), P 23(H) 6 - 21 mg/dL 03/20/2025 5:09 PM CDT [facility] Creatinine 0.88 0.59 - 1.04 mg/dL 03/20/2025 5:09 PM CDT [facility] Estimated GFR (eGFR) 72 >=60 mL/min/BSA 03/20/2025 5:09 PM CDT [facility] Comment: Estimated GFR calculated using the 2020 CKD_EPI creatinine equation. Calcium, Total, P 8.8 8.8 - 10.2 mg/dL 03/20/2025 5:09 PM CDT [facility] Glucose, P 151(H) 70 - 140 mg/dL 03/20/2025 5:09 PM CDT [facility] Blood (Blood, Venous) 03/20/2025 4:47 PM CDT 03/20/2025 4:52 PM CDT Yogi Chavez M.D., M.B.A. LAB BLOOD ADD-ON F inal Result [facility] [address] [place] [address], [place] [facility] [address] [place] [address] * DX Chest AP or PA and Lateral 2 Views (03/20/2025 4:21 PM CDT) Anatomical Region Laterality Modality Chest, Thoracic RST LOS, Tho racic ARZ LOS, Thoracic FLA LOS N/A Digital Radiography Impressions 03/20/2025 4:27 PM CDT No acute significant abnormality detected, for any incidental findings see descriptive report text. Narrative 03/20/2025 4:27 PM CDT EXAM: DX CHEST AP OR PA AND LATERAL 2 VIEWS Clinical: Weakness Imaging: Right-sided chest port in place. Right-sided perihilar mass. There are seen on CT 02/08/2025, which demonstrated the partially calcified mass in the anterior right upper lobe. Chronic bibasilar multifocal scarring. Currently no significant pulmonary edema or definite focal consolidation identified. Procedure Note Sai Swan M.D., Ph.D. - 03/20/2025 EXAM: DX CHEST AP OR PA AND LATERAL 2 VIEWS Clinical: Weakness Imaging: Right-sided chest port in place. Right-sided perihilar mass.There are seen on CT 02/08/2025, which demonstrated the partially calcifiedmass in the anterior right upper lobe. Chronic bibasilar multifocalscarring. Currently no significant pulmonary edema or definite focal consolidation identified. IMPRESSION: No acute significant abnormality detected, for any incidental findings seedescriptive report text. Yogi Chavez M.D., M.B.A. IMG DIAGNOSTIC MATT GING PROCEDURES Final Result * ECG 12 Lead (03/20/2025 3:59 PM CDT) Ventricular Rate ECG/Min 91 BPM MUSE TX Interval 148 ms MUSE QRSD Interval 66 ms MUSE QT Interval 350 ms MUSE QTC Interval 430 ms MUSE P [place] 37 degrees MUSE R [place] 30 degrees MUSE T Wave [place] 52 degrees MUSE 03/20/2025 3:59 PM CDT 03/20/2025 4:09 PM CDT Impressions MUSE - 03/20/2025 4:09 PM CDT Sinus rhythm Premature atrial complexes Nonspecific ST abnormality When compared with ECG of 24-Dec-2024 13:18, Premature atrial complexes are now present T wave abnormality is no longer present Reviewed by NIC Soliman Narrative Procedure Note Gregorio Pinzon Jr., M.D. - 03/20/2025 IMPRESSION: Sinus rhythm Premature atrial complexes Nonspecific ST abnormality When compared with ECG of 24-Dec-2024 13:18, Premature atrial complexes are now present T wave abnormality is no longer present Reviewed by NIC Soliman us Yogi Chavez M.D., M.B.A. ECG ORDERABLES Fi nal Result MUSE NA documented in this encounter Visit Diagnoses Diagnosis Viral Syndrome- Primary documented in this encounter Administered Medications Inactive Administered Medications - up to 3 most recent administrations Medication Order MAR Action Action Date Dose Rate Site acetaminophen tablet 1,000 mg (TylenoL) 1,000 mg, oral, Once as needed, mild pain or score 1-3 of 10, moderate pain or score 4-6 of 10, severe pain or score 7-10 of 10, fever, temperature greater than 38 C, Starting on 03/20/25 at 1703, For 1 dose Given 03/20/2025 5:07 PM CDT 1,000 mg heparin flush 500-1,000 Units 500-1,000 Units, intra-catheter, During hospitalization, line care, Prior to discharge, Starting on Mchenry 03/20/25 at 1943, For 1 dose, Implanted Vascular Access Device (IVAD) Venous Non-Valved: flush 5 mL (500 units) per port/lumen following saline flush prior to discharge. Given 03/20/2025 7:48 PM CDT 500 Units NaCl 0.9 % bolus 1,000 mL 1,000 mL, intravenous, at 1,000 mL/hr, Administer over 1 Hours, Once as needed, low blood pressure, systolic blood pressure less than 90 mmHg, Starting on Mchenry 03/20/25 at 1558, For 1 dose sodium chloride 0.9 % injection 10 mL 10 mL, intravenous, As needed, line care, Starting on Mchenry 03/20/25 at 1558, Peripheral Intravenous Catheter and Rapid Infusion Catheter, prior to blood sampling, post blood transfusion or post blood sampling sodium chloride 0.9 % injection 10-20 mL 10-20 mL, intravenous, During hospitalization, line care, Prior to discharge, Starting on Mchenry 03/20/25 at 1943, For 1 dose, Implanted Vascular Access Device (IVAD) Venous Non-Valved: Flush 10 mL per port/lumen followed by heparin flush prior to discharge. sodium chloride 0.9 % injection 3 mL 3 mL, intravenous, As needed, line care, Starting on Mchenry 03/20/25 at 1558, Prior to and following infusion and between multiple consecutive infusions: sodium chloride 0.9 % injection sodium chloride 0.9 % injection 3 mL 3 mL, intravenous, Every 12 hours scheduled, First dose on Mchenry 03/20/25 at 2100, Peripheral Intravenous Catheter and Rapid Infusion Catheter, when no infusion to maintain patency documented in this encounter Active and Recently Administered Medications Times are shown in CDT. Scheduled Medication Order 03/18/2025 03/19/2025 03/20/2025 sodium chloride 0.9 % injection 3 mL 3 mL, intravenous, Every 12 hours scheduled, First dose on Mchenry 03/20/25 at 2100, Peripheral Intravenous Catheter and Rapid Infusion Catheter, when no infusion to maintain patency PRN Medication Order 03/18/2025 03/19/2025 03/20/2025 acetaminophen tablet 1,000 mg (TylenoL) (COMPLETED)(Linked Group 1) 1,000 mg, oral, Once as needed, mild pain or score 1-3 of 10, moderate pain or score 4-6 of 10, severe pain or score 7-10 of 10, fever, temperature greater than 38 C, Starting on Fri03/20/25 at 1703, For 1 dose 1707 (Given - Provid er: Olena Siegel R.N., LaureanoR.N.) heparin flush 500-1,000 Units (COMPLETED) 500-1,000 Units, intra-catheter, During hospitalization, line care, Prior to discharge, Starting on Mchenry 03/20/25 at 1943, For 1 dose, Implanted Vascular Access Device (IVAD) Venous Non-Valved: flush 5 mL (500 units) per port/lumen following saline flush prior to discharge. 1947 (Given - Provid er: Dona Rush R.N.) NaCl 0.9 % bolus 1,000 mL 1,000 mL, intravenous, at 1,000 mL/hr, Administer over 1 Hours, Once as needed, low blood pressure, systolic blood pressure less than 90 mmHg, Starting on Fri03/20/25 at 1558, For 1 dose sodium chloride 0.9 % injection 10 mL 10 mL, intravenous, As needed, line care, Starting on Mchenry 03/20/25 at 1558, Peripheral Intravenous Catheter and Rapid Infusion Catheter, prior to blood sampling, post blood transfusion or post blood sampling sodium chloride 0.9 % injection 10-20 mL 10-20 mL, intravenous, During hospitalization, line care, Prior to discharge, Starting on Mchenry 03/20/25 at 1943, For 1 dose, Implanted Vascular Access Device (IVAD) Venous Non-Valved: Flush 10 mL per port/lumen followed by heparin flush prior to discharge. sodium chloride 0.9 % injection 3 mL 3 mL, intravenous, As needed, line care, Starting on Mchenry 03/20/25 at 1558, Prior to and following infusion and between multiple consecutive infusions: sodium chloride 0.9 % injection Linked Groups Order Group 1: acetaminophen tablet 1,000 mg (TylenoL) (COMPLETED)Jump to med 1,000 mg, oral, Once as needed, mild pain or score 1-3 of 10, moderate pain or score 4-6 of 10, severe pain or score 7-10 of 10, fever, temperature greater than 38 C, Starting on 03/20/25 at 1703, For 1 dose Or acetaminophen chewable tablet 960 mg (TylenoL) (COMPLETED) 960 mg, oral, Once as needed, mild pain or score 1-3 of 10, moderate pain or score 4-6 of 10, severe pain or score 7-10 of 10, fever, temperature greater than 38 C, Starting on 03/20/25 at 1703, For 1 dose, If unable to take tablets. Or acetaminophen suspension 960 mg (TylenoL) (COMPLETED) 960 mg, oral, Once as needed, mild pain or score 1-3 of 10, moderate pain or score 4-6 of 10, severe pain or score 7-10 of 10, fever, temperature greater than 38 C, Starting on 03/20/25 at 1703, For 1 dose, If unable to take tablets or chewable tablets. Or acetaminophen suppository 650 mg (TylenoL) (COMPLETED) 650 mg, rectal, Once as needed, mild pain or score 1-3 of 10, moderate pain or score 4-6 of 10, severe pain or score 7-10 of 10, fever, temperature greater than 38 C, Starting on 03/20/25 at 1703, For 1 dose, If patient unable to tolerate oral dosage forms. documented in this encounter Additional Health Concerns Infection Onset Date Last Indicated Resolved Time Protective Environment 02/14/2025 02/14/202504/30 8:54 PM CDT COVID19 Pending 03/20/2025 03/20/2025 03/20/2025 6 :27 PM CDT Assessment Noted Time A fall risk assessment has been complete d for the patient 07/05/2024 4:06 PM CDT documented as of this encounter Care Teams Prison Classification Counselor Relationship Specialty Start Date End Date Kati Colin M.D. [address] [place] [address] [place] [phone] PCP - General Family Medicine 03/09/24 documented as of this encounter
--- OUTSIDE RECORDS SUMMARY | 2025-03-21 08:39 | XMS_ITS | Encounter Summary ---
Author Organization [facility] Address [address] [place] [address] Care Team Providers Care Time Lock Expert Name Role Phone Kati Colin M.D. Primary Care Provider Reason for Referral * Outpatient (Routine) - Authorized Specialty Diagnoses / Procedures Referred By Phani t Referred To Contact Radiation Oncology Ange Sawyer M.D. [address] [place] [address] Phone: tel: [facility] Region Referral ID Status Reason Start Date Expiration Date V isits Requested Visits Authorized [id number] Authorized 03/14/2025 09/13/2026 3 3 Reason for Visit * Outpatient (Routine) - Authorized Specialty Diagnoses / Procedures Referred By Phani cruz Referred To Contact Radiation Oncology Ange Sawyer M.D. [address] [place] [address] Phone: tel: fax: [facility] Region Referral ID Status Reason Start Date Expiration Date V isits Requested Visits Authorized [id number] Authorized 03/14/2025 09/13/2026 3 3 Encounter Details Date Type Department Care Team (Latest Contact Info) Description 03/21/2025 8:39 AM CDT - 03/21/2025 8:51 AM CDT Hospital Encounter Department of Radiation Oncology in [place], [place] [address] [place] [address] Ange Sawyer M.D. [address] [place] [address] Grover Heart R.NGuille Malignant Neoplasm Of Lung Adenocarcinoma Right (HCC) (Primary Dx) Social History Tobacco Use Types Packs/Day Years Used Date Smoking Tobacco: Former Cigarettes 0.8 94.4 0 09/29/1969 - 08/23/2018 Smokeless Tobacco: Never Comments:Quit smoking severa l times for several months Alcohol Use Standard Drinks/Week Comments Yes 1 (1 standard drink = 0.6 oz pur e alcohol) [facility] Utilities Answer Date Recorded In the past 12 months has [employer] electric, gas, oil, or water [employer] threatened to shut off services in your [...] your living situation today? I have a [facility] place to live 12/26/2024 Comments No Sex and Gender Information Value Date Recorded Sex Assigned at Female 05/07/2024 7:38 AM CDT Legal Sex Female 3:35 PM TOOL CRIB CLERK Gender Identity Female 05/07/2024 7:38 AM CDT [...] sulfamethoxazole-tr imethoprim (Bactrim) 400-80 mg per tabletIndications:A sta With Chronic Obstructive Pulmonary Disease (HCC),Malignant Neoplasm Of Lung Adenocarcinoma Right (HCC) Take 1 tablet by mouth daily. 30 tablet 5 5 tiZANidine (Zanaflex) 2 mg tablet Take 2 mg by mouth every 8 (eight) hours as needed for muscle spasms. 5 valsartan (Diovan) 160 mg tablet Take 0.5 tablets (80 mg total) by mouth daily. 90 tablet 3 5 vitamins A,C,W-mihi-njkpvf (PreserVision AREDS) 7,160 Units-113 mg-100 Units per [...] 04/12/20 25 predniSONE (Deltasone) 5 mg tabletIndications:A sta With Chronic Obstructive Pulmonary Disease (HCC) Take 1 tablet (5 mg total) by mouth daily. 30 tablet 11 5 04/22/20 25 documented as of this encounter Progress Notes * Grover Heart R.N. - 03/21/2025 8:45 AM CDT SUBJECTIVE Radiation Oncology Nurse Visit REASON FOR VISIT Evaluation for side effects while receiving radiation treatment for 1. Malignant Neoplasm Of Lung Adenocarcinoma Right (HCC) HISTORY OF PRESENT ILLNESS Ms. Luz Richardson is a 69 y.o. 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 Patient will be receiving weekly Taxol/Carboplatin under the care of Dr. Andre at [facility]. Treatment Course: 1xLung Plan ID Fractions Dose / Fraction (cGy) Dose Treated (cGy) Dose Planned (cGy) First Treatment Last Treatment Elapsed Days [id number] 200 [id number] 6000 02/14/2025 03/17/2025 31 Course Summary 02/14/2025 03/17/2025 31 The patient reports feeling better today than when we last talked on Friday. [facility]. She states still needing lots of rest and recovery since her pneumonia diagnosis last . She was prescribed a 5 day course of levofloxacin as treatment. She wanted to be seen today to verify she was okay to continue with her radiation treatments. 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 The patient is tolerating radiation treatment moderately well overall. We discussed that she has nocontraindications for radiation completion at this time. She states that she is starting to feel better and is okay with proceeding as planned. She will contact us with any questions or concerns. We will continue with radiation treatment as planned. Signed by: Elizabeth Heart R.N. 03/21/2025 8:59 AM CDT documented in this encounter Plan of Treatment Upcoming Encounters Date Type Department Care Team (Latest Contact Info) Description 05/04/2025 8:45 AM CDT Clinical Communication Virtual Review in [place], [place] [address] [place] [address] 05/04/2025 2:00 PM CDT Telemedicine Department of Oncology in [place], [place] [address] [place] [phone] Antoine Phillip M.D. [address] [place] [phone] 05/05/2025 3:20 PM CDT Telemedicine Department of Oncology in [place], [place] [address] [place] [phone] Lexi Phillip APRN, C.N.P., D.N.P. [address] [place] [phone] 05/06/2025 1:10 PM CDT Comprehensive Visit Division of Gastroenterology in [place], [place] [address] [place] [address] Kati Colin M.D. [address] [place] [phone] 05/12/2025 2:00 PM CDT Comprehensive Visit Center for Sleep Medicine in [place], [place] [address] [place] [address] Phil Dorman D.O., M.S. [address] [place] [address] 08/09/2025 1:30 PM TOOL CRIB CLERK Office Visit Department of Sleep Medicine in [place], [place] [address] [place] [phone] Sallie White APRN, C.N.P., D.N.P., M.S.N. [address] [place] [phone] Scheduled Procedures Name Priority Associated Diagnoses Date/Ti me BRONCHOSCOPY FLEXIBLE Chronic Obstructive Pulmonary Disease Without Exacerbation (HCC) Abnormal Computed Tomography Chest Chronic Cough 05/03/2025 12:47 PM CDT Scheduled Referrals Name Type Priority Associated Diagnoses Order Schedule Radiation Oncology nurse visit (clinic) Outpatient Referral Routine Once for 1 Occurrences starting 03/21/2025 until 03/21/2025 documented as of this encounter Visit Diagnoses Diagnosis Malignant Neoplasm Of Lung Adenocarcinoma Right (HCC)- Primary documented in this encounter Additional Health Concerns Infection Onset Date Last Indicated Resolved Time Protective Environment 02/14/2025 02/14/202504/30 8:54 PM CDT Assessment Noted Time A fall risk assessment has been complete d for the patient 07/05/2024 4:06 PM CDT documented as of this encounter Care Teams Time Lock Expert Relationship Specialty Start Date End Date Kati Colin M.D. [address] [place] [phone] PCP - General Family Medicine 03/09/24 documented as of this encounter
--- OUTSIDE RECORDS SUMMARY | 2025-03-21 08:52 | XMS_ITS | Encounter Summary ---
Author Organization [facility] Address [address] [place] [address] Care Team Providers Care Administrative Appeals Tribunal Member Name Role Phone Kati Colin M.D. Primary Care Provider Encounter Details Date Type Department Care Team (Latest Contact Info) Description 03/21/2025 8:52 AM CDT - 03/21/2025 11:59 PM CDT Hospital Encounter Department of Radiation Oncology in [place], [place] [address] [place] [phone] Ange Sawyer M.D. [address] [place] [phone] Discharge Disposition: Home or Self Care Social History Tobacco Use Types Packs/Day Years Used Date Smoking Tobacco: Former Cigarettes 0.8 94.4 0 09/29/1969 - 08/23/2018 Smokeless Tobacco: Never Comments:Quit smoking severa l times for several months Alcohol Use Standard Drinks/Week Comments Yes 1 (1 standard drink = 0.6 oz pur e alcohol) [facility] Utilities Answer Date Recorded In the past 12 months has [employer] electric, gas, oil, or water company threatened [...] money to buy more. Never true 12/27/19 25 Within the past 12 months, t he [...] your living situation today? I have a [facility] place to live 12/26/2024 Comments No Sex and Gender Information Value Date Recorded Sex Assigned at Female 05/07/2024 7:38 AM CDT Legal Sex Female 3:35 PM DOT ETCHER Gender Identity Female 05/07/2024 7:38 AM CDT Sexual Orientation Straight 05/07/2024 7: 38 AM CDT documented as of this encounter Medications at Time of Discharge acetaminophen (TylenoL 8 Hr) 650 mg ER tablet Take 1,300 mg by mouth 2 (two) times a day. acetaminophen-codei ne (TylenoL #3) 300-30 mg per tablet Take 1 tablet by mouth every 4 (four) hours as needed. albuterol 90 mcg/actuation inhaler Inhale 2 puffs [...] sulfamethoxazole-tr imethoprim (Bactrim) 400-80 mg per tabletIndications:A everardo With Chronic Obstructive Pulmonary Disease (HCC),Malignant Neoplasm Of Lung Adenocarcinoma Right (HCC) Take 1 tablet by mouth daily. 30 tablet 5 5 tiZANidine (Zanaflex) 2 mg tablet Take 2 mg by mouth every 8 (eight) hours as needed for muscle spasms. 5 valsartan (Diovan) 160 mg tablet Take 0.5 tablets (80 mg total) by mouth daily. 90 tablet 3 5 vitamins A,C,T-zcmi-gpjeuz (PreserVision AREDS) 7,160 Units-113 mg-100 Units per [...] AM CDT Clinical Communication Virtual Review in [place], [place] [address] [place] [address] 05/04/2025 2:00 PM CDT Telemedicine Department of Oncology in [place], [place] [address] [address] Antoine Phillip M.D. [address] [place] [phone] 05/05/2025 3:20 PM CDT Telemedicine Department of Oncology in [place], [place] [address] [place] [phone] Lexi Phillip APRN, C.N.PGuille, D.N.P. [address] [place] [phone] 05/06/2025 1:10 PM CDT Comprehensive Visit Division of Gastroenterology in [place], [place] [address] [place] [address] Kati Colin M.D. [address] [place] [phone] 05/12/2025 2:00 PM CDT Comprehensive Visit Center for Sleep Medicine in [place], [place] [address] [place] [phone] Phil Dorman D.O., M.S. [address] [place] [address] 08/09/2025 1:30 PM DOT ETCHER Office Visit Department of Sleep Medicine in [place], [place] [address] [place] [phone] Sallie White APRN, C.N.P., D.N.P., M.S.N. [address] [place] [phone] Scheduled Procedures Name Priority Associated Diagnoses Date/Ti me BRONCHOSCOPY FLEXIBLE Chronic Obstructive Pulmonary Disease Without Exacerbation (HCC) Abnormal Computed Tomography Chest Chronic Cough 05/03/2025 12:47 PM CDT documented as of this encounter Visit Diagnoses Not on filedocumented in this encounter Additional Health Concerns Infection Onset Date Last Indicated Resolved Time Protective Environment 02/14/2025 02/14/202504/30 8:54 PM CDT Assessment Noted Time A fall risk assessment has been complete d for the patient 07/05/2024 4:06 PM CDT documented as of this encounter Care Teams Administrative Appeals Tribunal Member Relationship Specialty Start Date End Date Kati Colin M.D. [address] [place] [phone] PCP - General Family Medicine 03/09/24 documented as of this encounter
--- OUTSIDE RECORDS SUMMARY | 2025-03-22 08:48 | XMS_ITS | Encounter Summary ---
Author Organization [facility] Address [address] [place] [address] Care Team Providers Care Window/Distribution Clerk Name Role Phone Kati Colin M.D. Primary Care Provider Encounter Details Date Type Department Care Team (Latest Contact Info) Description 03/22/2025 8:48 AM CDT - 03/22/2025 11:59 PM CDT Hospital Encounter Department of Radiation Oncology in [place], [place] [address] [place] [phone] Ange Sawyer M.D. [address] [phone] Discharge Disposition: Home or Self Care Social [...] Recorded In the past 12 months has [employer] electric, gas, oil, or water company threatened [...] living situation today? I have a [facility] place to live 12/26/2024 Comments No Sex and Gender Information Value Date Recorded Sex Assigned at Female 05/07/2024 7:38 AM CDT Legal Sex Female 3:35 PM WELDING INSTRUCTOR Gender Identity Female 05/07/2024 7:38 AM [...] mouth daily. 90 tablet 3 5 vitamins A,C,S-lxqo-fglbnh (PreserVision AREDS) 7,160 Units-113 mg-100 Units per [...] AM CDT Clinical Communication Virtual Review in [place], [place] [address] [place] [address] 05/04/2025 2:00 PM CDT Telemedicine Department of Oncology in [place], [place] [address] [address] Antoine Phillip M.D. [address] [place] [phone] 05/05/2025 3:20 PM CDT Telemedicine Department of Oncology in [place], [place] [address] [place] [phone] Lexi Phillip APRN, C.N.PGuille, D.N.P. [address] [place] [phone] 05/06/2025 1:10 PM CDT Comprehensive Visit Division of Gastroenterology in [place], [place] [address] [place] [address] Kati Colin M.D. [address] [place] [phone] 05/12/2025 2:00 PM CDT Comprehensive Visit Center for Sleep Medicine in [place], [place] [address] [place] [phone] Phil Dorman D.O., M.S. [address] [place] [address] 08/09/2025 1:30 PM WELDING INSTRUCTOR Office Visit Department of Sleep Medicine in [place], [place] [address] [place] [phone] Sallie White APRN, C.N.P., D.N.P., M.S.N. [address] [place] [phone] Scheduled Procedures Name Priority Associated Diagnoses Date/Ti [...] documented as of this encounter Care Teams Window/Distribution Clerk Relationship Specialty Start Date End Date Kati Colin M.D. [address] [place] [phone] PCP - General Family Medicine 03/09/24 documented as of this encounter
--- OUTSIDE RECORDS SUMMARY | 2025-03-23 08:42 | XMS_ITS | Encounter Summary ---
Author Organization [facility] Address [address] [place] [address] Care Team Providers Care Rental Car Porter Name Role Phone Kati Colin M.D. Primary Care Provider Encounter Details Date Type Department Care Team (Latest Contact Info) Description 03/23/2025 8:42 AM CDT - 03/23/2025 11:59 PM CDT Hospital Encounter Department of Radiation Oncology in [place], [place] [address] [place] [phone] Ange Sawyer M.D. [address] [place] [phone] Discharge Disposition: Home or Self Care Social History Tobacco Use Types Packs/Day Years Used Date Smoking Tobacco: Former Cigarettes 0.8 94.4 0 09/29/1969 - 08/23/2018 Smokeless Tobacco: Never Comments:Quit smoking severa l times for several months Alcohol Use Standard Drinks/Week Comments Yes 1 (1 standard drink = 0.6 oz pur e alcohol) [facility] Utilities Answer Date Recorded In the past 12 months has [employer] electric, gas, oil, or water company threatened [...] your living situation today? 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 acetaminophen-codei ne (TylenoL #3) 300-30 mg per tablet Take 1 tablet by mouth every 4 (four) hours as needed. acetaminophen-codei ne (TylenoL #3) 300-30 mg per tabletIndications:C hronic Pain/Nonacute Pain Take 1-2 tablets by mouth every 6 (six) hours as needed for pain Indications: Chronic Pain/Nonacute Pain. 90 tablet 5 albuterol 90 mcg/actuation inhaler Inhale 2 [...] mouth daily. 90 tablet 3 5 vitamins A,C,T-vyhi-idhibh (PreserVision AREDS) 7,160 Units-113 mg-100 Units per [...] 04/12/20 25 predniSONE (Deltasone) 5 mg tabletIndications:A suresh With Chronic Obstructive Pulmonary Disease (HCC) Take 1 tablet (5 mg total) by mouth daily. 30 tablet 11 5 04/22/20 25 documented as of this encounter Plan of Treatment Upcoming Encounters Date Type Department Care Team (Latest Contact Info) Description 05/04/2025 8:45 AM CDT Clinical Communication Virtual Review in [place], [place] [address] [place] [address] 05/04/2025 2:00 PM CDT Telemedicine Department of Oncology in [place], [place] [address] [place] [address] Antoine Phillip M.D. [address] [place] [phone] 05/05/2025 3:20 PM CDT Telemedicine Department of Oncology in [place], [place] [address] [place] [phone] Lexi Phillip, LOREN, C.N.P., D.N.P. [address] [place] [phone] 05/06/2025 1:10 PM CDT Comprehensive Visit Division of Gastroenterology in [place], [place] [address] [place] [address] Kati Colin M.D. [address] [place] [phone] 05/12/2025 2:00 PM CDT Comprehensive Visit Center for Sleep Medicine in [place], [place] [address] [place] [address] Phil Dorman D.O., M.S. [address] [place] [address] 08/09/2025 1:30 PM CONTINUOUS WASHER OPERATOR Office Visit Department of Sleep Medicine in [place], [place] [address] [place] [phone] Sallie White APRN, C.N.P., D.N.P., M.S.N. [address] [phone] Scheduled Procedures Name Priority Associated Diagnoses Date/Ti [...] documented as of this encounter Care Teams Rental Car Porter Relationship Specialty Start Date End Date Kati Colin M.D. [address] [place] [phone] PCP - General Family Medicine 03/09/24 documented as of this encounter
--- OUTSIDE RECORDS SUMMARY | 2025-03-23 08:42 | XMS_ITS | Encounter Summary ---
Author Organization [facility] Address [address] [place] [address] Care Team Providers Care Steel Box Toe Inserter Name Role Phone Kati Colin M.D. Primary Care Provider [phone] Reason for Referral * Radiation Therapy (Routine) - Authorized Specialty Diagnoses / Procedures Referred By Phani cruz Referred To Contact Diagnoses Malignant Neoplasm Of Lung Adenocarcinoma Right (HCC) Procedures Management Visit Ange Sawyer M.D. [address] [place] [address] Phone: tel: fax: [facility] Region Referral ID Status Reason Start Date Expiration Date V isits Requested Visits Authorized [id number] Authorized 01/26/2025 04/28/2026 10 10 Reason for Visit * Radiation Therapy (Routine) - Authorized Specialty Diagnoses / Procedures Referred By Phani cruz Referred To Contact Diagnoses Malignant Neoplasm Of Lung Adenocarcinoma Right (HCC) Procedures Management Visit Ange Sawyer M.D. [address] [place] [address] Phone: tel: fax: [facility] Referral ID Status Reason Start Date Expiration Date V isits Requested Visits Authorized [id number] Authorized 01/26/2025 04/28/2026 10 10 Encounter Details Date Type Department Care Team (Latest Contact Info) Description 03/23/2025 8:42 AM CDT - 03/28/2025 10:32 AM CDT Hospital Encounter Department of Radiation Oncology in [place], [place] [address] [place] [phone] Perico Marr M.D. [address] [place] [address] Malignant Neoplasm Of Lung Adenocarcinoma Right (HCC) Social History Tobacco Use Types Packs/Day Years Used Date Smoking Tobacco: Former Cigarettes 0.8 94.4 0 09/29/1969 - 08/23/2018 Smokeless Tobacco: Never Comments:Quit smoking severa l times for several months Alcohol Use Standard Drinks/Week Comments Yes 1 (1 standard drink = 0.6 oz pur e alcohol) [facility] Utilities Answer Date Recorded In the past 12 months has [employer], gas, oil, or water [employer] threatened to shut off services in your [...] your living situation today? I have a [facility] place to live 12/26/2024 Comments No Sex and Gender Information Value Date Recorded Sex Assigned at Female 05/07/2024 7:38 AM CDT Legal Sex Female 3:35 PM CONFERENCE CENTER COORDINATOR Gender Identity Female 05/07/2024 7:38 AM CDT Sexual Orientation Straight 05/07/2024 7: 38 AM CDT documented as of this encounter Last Filed Vital Signs Vital Sign Reading Time Taken Comments Blood Pressure 111/72 03/23/2025 9:25 AM CDT Pulse 85 03/23/2025 9:25 AM CDT Temperature - - Respiratory Rate - - Oxygen Saturation - - Inhaled Oxygen Concentration - - Weight 106 kg (233 lb 11 oz) 03/23/2025 9:25 AM CDT Height - - Body Mass Index 37.74 02/10/2025 10:33 AM CDT documented in this encounter Medications at Time of Discharge acetaminophen (TylenoL 8 Hr) 650 mg ER tablet Take 1,300 mg by mouth 2 (two) times a day. acetaminophen-codei ne (TylenoL #3) 300-30 mg per tablet Take 1 tablet by mouth every 4 (four) hours as needed. 5 acetaminophen-codei ne (TylenoL #3) 300-30 mg per [...] 5 blood-glucose meter (Accu-Chek Guide Glucose Meter) mis 1 Device as directed. 1 each 5 [...] (four) times a day as needed. 3 diphenhydramine, lidocaine 2%, nystatin, antacid (mw)Indications:Mal ignant Neoplasm Of Lung Adenocarcinoma Right (HCC) Take 5-10 mL by mouth 4 (four) times a day after meals and bedtime. Hold in mouth for 1 minute.Do not eat or drink for 15-30 minutes after use. You may swallow to help with throat discomfort. 240 mL 11 5 DME Oxygen 3 L by continuous inhalation [...] sulfamethoxazole-tr imethoprim (Bactrim) 400-80 mg per tabletIndications:A stsuresh With Chronic Obstructive Pulmonary Disease (HCC),Malignant Neoplasm Of Lung Adenocarcinoma Right (HCC) Take 1 tablet by mouth daily. 30 tablet 5 5 tiZANidine (Zanaflex) 2 mg tablet Take 2 mg by mouth every 8 (eight) hours as needed for muscle spasms. 5 valsartan (Diovan) 160 mg tablet Take 0.5 tablets (80 mg total) by mouth daily. 90 tablet 3 5 vitamins A,C,A-xobx-fnsqjr (PreserVision AREDS) 7,160 Units-113 mg-100 Units per tablet Take 1 tablet by mouth 2 (two) times a day. azithromycin (Zithromax) 500 mg tablet 500 mg daily on M, W, F 36 tablet 3 4 04/12/20 25 furosemide (Lasix) 20 mg tablet Take 1 tablet (20 mg total) by mouth daily. M, W, F 90 tablet 3 4 04/22/20 25 levoFLOXacin (Levaquin) 750 mg tablet Take 750 mg by mouth. 5 04/12/20 predniSONE (Deltasone) 5 mg tabletIndications:A everardo With Chronic Obstructive Pulmonary Disease (HCC) Take 1 tablet (5 mg total) by mouth daily. 30 tablet 11 5 04/22/20 documented as of this encounter Progress Notes * Perico Marr M.D. - 03/23/2025 9:30 AM CDT SUBJECTIVE REASON FOR VISIT Evaluation for side effects while receiving radiation treatment for 1. Malignant Neoplasm Of Lung Adenocarcinoma Right (HCC) SUPERVISED BY: Perico Marr M.D. ([id number]) HISTORY OF PRESENT ILLNESS Ms. Luz Richardson is a 69 y.o. 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 Patient will be receiving weekly Taxol/Carboplatin under the care of Dr. Phillip at [facility]. Treatment Course: 1xLung Plan ID Fractions Dose / Fraction (cGy) Dose Treated (cGy) Dose Planned (cGy) First Treatment Last Treatment Elapsed Days [id number] 200 5200 6000 02/14/2025 03/23/2025 37 Course Summary 02/14/2025 03/23/2025 37 The patient was seen and examined today with Dr. Marr. The patient reports feeling well overall. She is starting to feel progressively better since completing her course of antibiotics for pneumonia. She reports that she is resting better. She reports stable breathing and only chest discomfort with exertion. She notes improvement in her cough but it isstill present. Her throat feels more raw this week but she feels that the taste of food is impacting her food intake more than the discomfort. She is eating soft foods such as mash potatoes, macaroni, cottage cheese, icecream and supplement drinks but reports she is able to eat regular food as well. She rates the pain a 5 out of 10 and that is tolerable for her. She is taking one dose of Tylenol #3 before bed for generalized aches and pains. OBJECTIVE BP 111/72 (BP Location: Right arm, Patient Position: Sitting, Cuff Size: Regular) Pulse 85 Wt 106 kg BMI 37.74 kg/m?? PHYSICAL EXAM General: Alert and oriented in no apparent distress. She is currently using 3 L oxygen via nasal cannula at rest. ASSESSMENT / PLAN #1 Locally and regionally [...] lung initiated on February 14, 2025; anticipated completion on March 28, 2025. The patient is tolerating radiation treatment well overall and with anticipated side effects. Discussed with patient trialing Tylenol 30 minutes prior to meals if her throat discomfort is becoming more bothersome to her. Patient should by mindful of the amount of Tylenol she is taking per day making sure not to exceed 4000 mg daily. She will reach out to us if her Tylenol is not controlling her th roat discomfort. Her weight is stable overall. She has met with our dietitians and knows she can request of visit if needed but declined the need to see them tomorrow. Patient was provided with HCB drinks. She will see Dr. Sawyer in a last management visit next week. Dr. Marr was in for any questions or concerns. Patient will continue with treatment as planned. She can contact our care team with any questions or concerns. Signed by: Joanie De Souza R.N. 03/23/2025 9:29 AM CDT I saw and evaluated the patient and participated in the means portions of the service. I reviewed thedocumentation of Joanie De Souza R.N. and agree with the findings and plan. The patient appears well on exam. She is tolerating treatment with some throat pain. She will increase her use of Tylenol. She will continue with treatment as planned. Signed by: Perico Marr M.D. 03/28/2025 11:12 PM CDT [facility] [address] [place] [address] documented in this encounter Plan of Treatment Upcoming Encounters Date Type Department Care Team (Latest Contact Info) Description 05/04/2025 8:45 AM CDT Clinical Communication Virtual Review in [place], [place] [address] [place] [address] 05/04/2025 2:00 PM CDT Telemedicine Department of Oncology in [place], [place] [address] [phone] Antoine Phillip M.D. [address] [place] [phone] 05/05/2025 3:20 PM CDT Telemedicine Department of Oncology in [place], [place] [address] [place] [phone] Lexi Phillip APRN, C.N.P., D.N.P. [address] [place] [address] 05/06/2025 1:10 PM CDT Comprehensive Visit Division of Gastroenterology in [place], [place] [address] [place] [phone] Kati Colin M.D. [address] [place] [phone] 05/12/2025 2:00 PM CDT Comprehensive Visit Center for Sleep Medicine in [place], [place] [address] [place] [phone] Phil Dorman D.O., M.S. [address] [place] [phone] 08/09/2025 1:30 PM CONFERENCE CENTER COORDINATOR Office Visit Department of Sleep Medicine in [place], [place] [address] [phone] aSllie White APRN, C.N.P., D.N.P., M.S.N. [address] [place] [phone] Scheduled Orders Name Type Priority Associated Diagnoses Orde r Schedule Management Visit Radiation Oncology Routine Malignant Neoplasm Of Lung Adenocarcinoma Right (HCC) Once for 1 Occurrences starting 03/23/2025 until 03/23/2025 Scheduled Procedures Name Priority Associated Diagnoses Date/Ti me BRONCHOSCOPY FLEXIBLE Chronic Obstructive Pulmonary Disease Without Exacerbation (HCC) Abnormal Computed Tomography Chest Chronic Cough 05/03/2025 12:47 PM CDT documented as of this encounter Visit Diagnoses Diagnosis Malignant Neoplasm Of Lung Adenocarcinoma Right (HCC) documented in this encounter Additional Health Concerns Infection Onset Date Last Indicated Resolved Time Protective Environment 02/14/2025 02/14/202504/30 8:54 PM CDT Assessment Noted Time A fall risk assessment has been complete d for the patient 07/05/2024 4:06 PM CDT documented as of this encounter Care Teams Steel Box Toe Inserter Relationship Specialty Start Date End Date Kati Colin M.D. [address] [place] [address] [place] [phone] PCP - General Family Medicine 03/09/24 documented as of this encounter
--- OUTSIDE RECORDS SUMMARY | 2025-03-24 08:48 | XMS_ITS | Encounter Summary ---
Author Organization [facility] Address [address] [place] [address] Care Team Providers Care Acquisition Lead Name Role Phone Kati Colin M.D. Primary Care Provider Encounter Details Date Type Department Care Team (Latest Contact Info) Description 03/24/2025 8:48 AM CDT - 03/24/2025 11:59 PM CDT Hospital Encounter Department of Radiation Oncology in [place], [place] [address] [place] [phone] Ange Sawyer M.D. [address] [place] [phone] Discharge Disposition: Home or Self Care Social History Tobacco Use Types Packs/Day Years Used Date Smoking Tobacco: Former Cigarettes 0.8 94.4 0 09/29/1969 - 08/23/2018 Smokeless Tobacco: Never Comments:Quit smoking severa l times for several months Alcohol Use Standard Drinks/Week Comments Yes 1 (1 standard drink = 0.6 oz pur e alcohol) [facility] Utilities Answer Date Recorded In the past 12 months has [employer], gas, oil, or water company threatened [...] your living situation today? I have a [facility] place to live 12/26/2024 Comments No Sex and Gender Information Value Date Recorded Sex Assigned at Female 05/07/2024 7:38 AM CDT Legal Sex Female 3:35 PM CHILDBIRTH EDUCATOR Gender Identity Female 05/07/2024 7:38 AM CDT [...] test strips) 1 test daily. 100 each 5 blood-glucose meter (Accu-Chek Guide Glucose Meter) [...] mouth daily. 90 tablet 3 5 vitamins A,C,S-plgh-rrxizx (PreserVision AREDS) 7,160 Units-113 mg-100 Units per tablet Take 1 tablet by mouth 2 (two) times a day. azithromycin (Zithromax) 500 mg tablet 500 mg daily on M, W, F 36 tablet 3 4 04/12/20 furosemide (Lasix) 20 mg tablet Take 1 [...] 5 04/22/20 documented as of this encounter Plan of Treatment Upcoming Encounters Date Type Department Care Team (Latest Contact Info) Description 05/04/2025 8:45 AM CDT Clinical Communication Virtual Review in [place], [place] [address] [place] [address] 05/04/2025 2:00 PM CDT Telemedicine Department of Oncology in [place], [place] [address], [place] [address] Antoine Phillip M.D. [address] [place] [phone] 05/05/2025 3:20 PM CDT Telemedicine Department of Oncology in [place], [place] [address] [place] [phone] Lexi Phillip, LOREN, C.N.P., D.N.P. [address] [place] [phone] 05/06/2025 1:10 PM CDT Comprehensive Visit Division of Gastroenterology in [place], [place] [address] [place] [address] Kati Colin M.D. [address] [place] [phone] 05/12/2025 2:00 PM CDT Comprehensive Visit Center for Sleep Medicine in [place], [place] [address] [place] [address] Phil Dorman D.O., M.S. [address] [place] [address] 08/09/2025 1:30 PM CHILDBIRTH EDUCATOR Office Visit Department of Sleep Medicine in [place], [place] [address] [place] [phone] Sallie White APRN, C.N.P., D.N.P., M.S.N. [address] [place] [phone] Scheduled Procedures Name Priority Associated Diagnoses Date/Ti [...] documented as of this encounter Care Teams Acquisition Lead Relationship Specialty Start Date End Date Kati Colin M.D. [address] [facility] [place] [phone] PCP - General Family Medicine 03/09/24 documented as of this encounter
--- OUTSIDE RECORDS SUMMARY | 2025-03-25 08:32 | XMS_ITS | Encounter Summary ---
Author Organization [facility] Address [address] [place] [address] Care Team Providers Care Blending Machine Operator Name Role Phone Kati Colin M.D. Primary Care Provider [phone] Encounter Details Date Type Department Care Team (Latest Contact Info) Description 03/25/2025 8:32 AM CDT - 03/25/2025 11:59 PM CDT Hospital Encounter Department of Radiation Oncology in [place], [place] [address] [place] [phone] Ange Sawyer M.D. [address] [place] [phone] Discharge Disposition: Home or Self Care Social History Tobacco Use Types Packs/Day Years Used Date Smoking Tobacco: Former Cigarettes 0.8 94.4 0 09/29/1969 - 08/23/2018 Smokeless Tobacco: Never Comments:Quit smoking severa l times for several months Alcohol Use Standard Drinks/Week Comments Yes 1 (1 standard drink = 0.6 oz pur e alcohol) [facility] Utilities Answer Date Recorded In the past 12 months has [employer], gas, oil, or water company threatened [...] your living situation today? I have a [facility] place to live 12/26/2024 Comments No Sex and Gender Information Value Date Recorded Sex Assigned at Female 05/07/2024 7:38 AM CDT Legal Sex Female 3:35 PM PAPER CONE GRADER Gender Identity Female 05/07/2024 7:38 AM CDT [...] mouth daily. 90 tablet 3 5 vitamins A,C,B-tvik-ctlozs (PreserVision AREDS) 7,160 Units-113 mg-100 Units per [...] AM CDT Clinical Communication Virtual Review in [place], [place] [address] [place] [phone] 05/04/2025 2:00 PM CDT Telemedicine Department of Oncology in [place], [place] [address], [place] [address] Antoine Phillip M.D. [address] [place] [phone] 05/05/2025 3:20 PM CDT Telemedicine Department of Oncology in [place], [place] [address] [place] [phone] Lexi Phillip, LOREN, C.N.P., D.N.P. [address] [place] [phone] 05/06/2025 1:10 PM CDT Comprehensive Visit Division of Gastroenterology in [place], [place] [address] [place] [address] Kati Colin M.D. [address] [place] [phone] 05/12/2025 2:00 PM CDT Comprehensive Visit Center for Sleep Medicine in [place], [place] [address] [place] [address] Phil Dorman D.O., M.S. [address] [place] [address] 08/09/2025 1:30 PM PAPER CONE GRADER Office Visit Department of Sleep Medicine in [place], [place] [address] [place] [phone] Sallie White APRN, C.N.P., D.N.P., M.S.N. [address] [place] [phone] Scheduled Procedures Name Priority Associated Diagnoses Date/Ti [...] documented as of this encounter Care Teams Blending Machine Operator Relationship Specialty Start Date End Date Kati Colin M.D. [address] [facility] [place] [phone] PCP - General Family Medicine 03/09/24 documented as of this encounter
--- OUTSIDE RECORDS SUMMARY | 2025-03-28 10:33 | XMS_ITS | Encounter Summary ---
Author Organization [facility] Address [address] [place] [address] Care Team Providers Care Shuttle Hand Name Role Phone Kati Colin M.D. Primary Care Provider Reason for Visit * Episode Based Medications (Routine) - Authorized Specialty Diagnoses / Procedures Referred By Phani t Referred To Contact Diagnoses Malignant Neoplasm Of Lung Adenocarcinoma Right (HCC) Shannon Andre M.D. [address] [place] [address] Phone: tel: fax: Shannon Andre M.D. [address] [place] [address] Phone: tel: fax: Referral ID Status Reason Start Date Expiration Date V isits Requested Visits Authorized [id number] Authorized 02/10/2025 02/10/2027 99 99 Encounter Details Date Type Department Care Team (Latest Contact Info) Description 03/28/2025 10:33 AM CDT - 03/28/2025 2:47 PM CDT Hospital Encounter Department of Laboratory Medicine in [place] [address] [place] [phone] Antoine Phillip M.D. [address] [place] [id number] Malignant Neoplasm Of Lung Adenocarcinoma Right (HCC) Discharge Disposition: Home or Self Care [...] In the past 12 months has e [employer], gas, oil, or water [employer] threatened to shut off services in your [...] your living situation today? I have a [facility] place to live 12/26/2024 Comments No Sex and Gender Information Value Date Recorded Sex Assigned at Female 05/07/2024 7:38 AM CDT Legal Sex Female 3:35 PM TYPING ELEMENT MACHINE OPERATOR Gender Identity Female 05/07/2024 7:38 [...] sulfamethoxazole-tr imethoprim (Bactrim) 400-80 mg per tabletIndications:[facility] With Chronic Obstructive Pulmonary Disease (HCC),Malignant Neoplasm Of Lung Adenocarcinoma Right (HCC) Take 1 tablet by mouth daily. 30 tablet 5 5 tiZANidine (Zanaflex) 2 mg tablet Take 2 mg by mouth every 8 (eight) hours as needed for muscle spasms. 5 valsartan (Diovan) 160 mg tablet Take 0.5 tablets (80 mg total) by mouth daily. 90 tablet 3 5 vitamins A,C,E-dbfb-kabjsr (PreserVision AREDS) 7,160 Units-113 mg-100 Units per [...] 04/12/20 25 predniSONE (Deltasone) 5 mg tabletIndications:[facility] With Chronic Obstructive Pulmonary Disease (HCC) Take 1 tablet (5 mg total) by mouth daily. 30 tablet 11 5 04/22/20 25 documented as of this encounter Plan of Treatment Upcoming Encounters Date Type Department Care Team (Latest Contact Info) Description 05/04/2025 8:45 AM CDT Clinical Communication Virtual Review in [place], [place] [address] [place] [phone] 05/04/2025 2:00 PM CDT Telemedicine Department of Oncology in [place], [place] [address], [place] [address] Antoine Phillip M.D. [address] [place] [phone] 05/05/2025 3:20 PM CDT Telemedicine Department of Oncology in [place], [place] [address] [place] [phone] Lexi Phillip APRN, C.N.P., D.N.P. [address] [place] [phone] 05/06/2025 1:10 PM CDT Comprehensive Visit Division of Gastroenterology in [place], [place] [address] [place] [phone] Kati Colin M.D. [address] [place] [phone] 05/12/2025 2:00 PM CDT Comprehensive Visit Center for Sleep Medicine in [place], [place] [address] [place] [address] Phil Dorman D.O., M.S. [address] [place] [phone] 08/09/2025 1:30 PM TYPING ELEMENT MACHINE OPERATOR Office Visit Department of Sleep Medicine in [place], [place] [address] [place] [phone] Sallie White APRN, C.N.P., D.N.P., M.S.N. [address] [place] [phone] Scheduled Procedures Name Priority Associated Diagnoses Date/Ti me BRONCHOSCOPY FLEXIBLE Chronic Obstructive Pulmonary Disease Without Exacerbation (HCC) Abnormal Computed Tomography Chest Chronic Cough 05/03/2025 12:47 PM CDT documented as of this encounter Procedures Procedure Name Priority Date/Time Associated Diagnosis Comments CBC WITH DIFFERENTIAL, B Routine 03/28/2025 10:54 AM CDT Malignant Neoplasm Of Lung Adenocarcinoma Right (HCC) MAGNESIUM, S Routine 03/28/2025 10:54 AM CDT Malignant Neoplasm Of Lung Adenocarcinoma Right (HCC) BASIC METABOLIC PANEL, S/P Routine 03/28/2025 10:54 AM CDT Malignant Neoplasm Of Lung Adenocarcinoma Right (HCC) documented in this encounter Results * (ABNORMAL) Magnesium (03/28/2025 10:54 AM CDT) Magnesium, P 2.5(H) 1.7 - 2.3 mg/dL 03/28/2025 2:07 PM CDT OWAT Blood (Blood, Venous) 03/28/2025 10:54 AM CDT 03/28/2025 1:28 PM CDT Antoine Phillip M.D. LAB BLOOD ADD-ON Final Result [facility] [address], [place] [address], [facility] OWAT [facility] in [place] [address], [place] [address] * (ABNORMAL) Basic Metabolic Panel (03/28/2025 10:54 AM CDT) Potassium, P 3.7 3.6 - 5.2 mmol/L 03/28/2025 2:07 PM CDT OWAT Sodium, P 140 135 - 145 mmol/L 03/28/2025 2:07 PM CDT OWAT Chloride, P 99 98 - 107 mmol/L 03/28/2025 2:07 PM CDT OWAT Bicarbonate, P 34(H) 22 - 29 mmol/L 03/28/2025 2:07 PM CDT OWAT Anion Gap, P 7 7 - 15 03/28/2025 2:07 PM CDT OWAT BUN (Blood Urea Nitrogen), P 20 6 - 21 mg/dL 03/28/2025 2:07 PM CDT OWAT Creatinine 1.08(H) 0.59 - 1.04 mg/dL 03/28/2025 2:07 PM CDT OWAT Estimated GFR (eGFR) 56(L) >=60 mL/min/BSA 03/28/2025 2:07 PM CDT OWAT Comment: Estimated GFR calculated using the 2020 CKD_EPI creatinine equation. Calcium, Total, P 8.8 8.8 - 10.2 mg/dL 03/28/2025 2:07 PM CDT OWAT Glucose, P 183(H) 70 - 140 mg/dL 03/28/2025 2:07 PM CDT OWAT Blood (Blood, Venous) 03/28/2025 10:54 AM CDT 03/28/2025 1:28 PM CDT us Antoine Phillip M.D. LAB BLOOD ADD-ON Final Result [facility] [address], [place] [address], [facility] OWAT [facility] in [place] [address] [place] [address] * (ABNORMAL) CBC with Differential, Blood (03/28/2025 10:54 AM CDT) Hemoglobin 9.8(L) 11.6 - 15.0 g/dL 03/28/2025 1:37 PM CDT OWAT Hematocrit 31.0(L) 35.5 - 44.9 % 03/28/2025 1:37 PM CDT OWAT Erythrocytes 3.42(L) 3.92 - 5.13 x10(12)/L 03/28/2025 1:37 PM CDT OWAT MCV 90.6 78.2 - 97.9 fL 03/28/2025 1:37 PM CDT OWAT RBC Distrib Width 17.0(H) 12.2 - 16.1 % 03/28/2025 1:37 PM CDT OWAT Platelet Count 155(L) 157 - 371 x10(9)/L 03/28/2025 1:37 PM CDT OWAT Leukocytes 2.6(L) 3.4 - 9.6 x10(9)/L 03/28/2025 1:37 PM CDT OWAT Neutrophils 2.04 1.56 - 6.45 x10(9)/L 03/28/2025 1:37 PM CDT OWAT Lymphocytes 0.13(L) 0.95 - 3.07 x10(9)/L 03/28/2025 1:37 PM CDT OWAT Monocytes 0.42 0.26 - 0.81 x10(9)/L 03/28/2025 1:37 PM CDT OWAT Eosinophils <0.03 0.03 - 0.48 x10(9)/L 03/28/2025 1:37 PM CDT OWAT Basophils <0.03 0.01 - 0.08 x10(9)/L 03/28/2025 1:37 PM CDT OWAT Blood (Blood, Venous) 03/28/2025 10:54 AM CDT 03/28/2025 1:29 PM CDT Antoine Phillip M.D. LAB BLOOD ADD-ON Final Result [facility] [address] [place] [address], [facility] OWAT [facility] in [place] [address] [place] [address] documented in this encounter Visit Diagnoses Diagnosis Malignant Neoplasm Of Lung Adenocarcinoma Right (HCC) documented in this encounter Additional Health Concerns Infection Onset Date Last Indicated Resolved Time Protective Environment 02/14/2025 02/14/202504/30 8:54 PM CDT Assessment Noted Time A fall risk assessment has been complete d for the patient 07/05/2024 4:06 PM CDT documented as of this encounter Care Teams Shuttle Hand Relationship Specialty Start Date End Date Kati Colin M.D. [address] [place] [phone] PCP - General Family Medicine 03/09/24 documented as of this encounter
--- OUTSIDE RECORDS SUMMARY | 2025-03-28 14:48 | XMS_ITS | Encounter Summary ---
Author Organization [facility] Address [address] [place] [address] Care Team Providers Care Fabrication Mig Welder Name Role Phone Kati Colin M.D. Primary Care Provider Encounter Details Date Type Department Care Team (Latest Contact Info) Description 03/28/2025 2:48 PM CDT - 03/28/2025 11:59 PM CDT Hospital Encounter Department of Radiation Oncology in [place], [place] [address] [place] [phone] Ange Sawyer M.D. 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 90 tablet 3 5 vitamins A,C,A-qhui-zujkja (PreserVision AREDS) 7,160 Units-113 mg-100 Units per [...] AM CDT Clinical Communication Virtual Review in [place], [place] [address] [place] [address] 05/04/2025 2:00 PM CDT Telemedicine Department of Oncology in [place], [place] [address], [place] [address] Antoine Phillip M.D. [address] [place] [phone] 05/05/2025 3:20 PM CDT Telemedicine Department of Oncology in [place], [place] [address] [place] [phone] Lexi Phillip, LOREN, C.N.P., D.N.P. [address] [place] [phone] 05/06/2025 1:10 PM CDT Comprehensive Visit Division of Gastroenterology in [place], [place] [address] [place] [address] Kati Colin M.D. [address] [place] [phone] 05/12/2025 2:00 PM CDT Comprehensive Visit Center for Sleep Medicine in [place], [place] [address] [place] [address] Phil Dorman D.O., M.S. [address] [place] [address] 08/09/2025 1:30 PM CABINETMAKER SUPERVISOR Office Visit Department of Sleep Medicine in [place], [place] [address] [place] [phone] Sallie White APRN, C.N.P., D.N.P., M.S.N. [address] [place] [phone] Scheduled Procedures Name Priority Associated Diagnoses Date/Ti [...] documented as of this encounter Care Teams Fabrication Mig Welder Relationship Specialty Start Date End Date Kati Colin M.D. [address] [facility] [place] [phone] PCP - General Family Medicine 03/09/24 documented as of this encounter
--- OUTSIDE RECORDS SUMMARY | 2025-03-28 14:48 | XMS_ITS | Encounter Summary ---
Author Organization [facility] Address [address] [place] [id number] Care Team Providers Care American Studies Professor Name Role Phone Kati Colin M.D. Primary Care Provider [phone] Reason for Referral * Outpatient (Routine) - Closed Specialty Diagnoses / Procedures Referred By Phani cruz Referred To Contact Radiation Oncology Ange Sawyer M.D. [address] [place] [phone] Phone: tel: fax: Ange Sawyer M.D. [address] [place] [phone] Phone: tel: fax: Referral ID Status Reason Start Date Expiration Date Visits Re quested Visits Authorized [id number] Closed 03/28/2025 09/27/2026 1 1 * MRI/CAT/PET Scan (Routine) - Closed Specialty Diagnoses / Procedures Referred By Phani cruz Referred To Contact Radiology Diagnoses Malignant Neoplasm Of Lung Adenocarcinoma Right (HCC) Procedures CT Chest with IV Contrast Ange Sawyer M.D. [address] [place] [address] Phone: tel: fax: [facility] Region Referral ID Status Reason Start Date Expiration Date Visits Re quested Visits Authorized [id number] Closed 03/28/2025 06/28/2026 1 1 * Radiation Therapy (Routine) - Authorized Specialty Diagnoses / Procedures Referred By Phani cruz Referred To Contact Diagnoses Malignant Neoplasm Of Lung Adenocarcinoma Right (HCC) Procedures Management Visit Ange Sawyer M.D. 200 [place] [address] Phone: tel: fax: [facility] Region Referral ID Status Reason Start Date Expiration Date V isits Requested Visits Authorized [id number] Authorized 01/26/2025 04/28/2026 10 10 Reason for Visit * Radiation Therapy (Routine) - Authorized Specialty Diagnoses / Procedures Referred By Phani cruz Referred To Contact Diagnoses Malignant Neoplasm Of Lung Adenocarcinoma Right (HCC) Procedures Management Visit Ange Sawyer M.D. 200 [place] [address] Phone: tel: fax: [facility] Region Referral ID Status Reason Start Date Expiration Date V isits Requested Visits Authorized [id number] Authorized 01/26/2025 04/28/2026 10 10 Encounter Details Date Type Department Care Team (Latest Contact Info) Description 03/28/2025 2:48 PM CDT - 03/28/2025 4:38 PM CDT Hospital Encounter Department of Radiation Oncology in [place], [place] [address] [place] [address] Ange Sawyer M.D. 200 [place] [address] Malignant Neoplasm Of Lung Adenocarcinoma Right (HCC) Social History Tobacco Use Types Packs/Day Years Used Date Smoking Tobacco: Former Cigarettes 0.8 94.4 0 09/29/1969 - 08/23/2018 Smokeless Tobacco: Never Comments:Quit smoking severa l times for several months Alcohol Use Standard Drinks/Week Comments Yes 1 (1 standard drink = 0.6 oz pur e alcohol) [facility] Utilities Answer Date Recorded In the past 12 months has e [employer], gas, oil, or water [employer] threatened to shut off services in your [...] your living situation today? 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 Gender Identity Female 05/07/2024 7:38 AM CDT Sexual Orientation Straight 05/07/2024 7: 38 AM CDT documented as of this encounter Last Filed Vital Signs Vital Sign Reading Time Taken Comments Blood Pressure 113/72 03/28/2025 3:18 PM CDT Pulse 96 03/28/2025 3:18 PM CDT Temperature 36.4 C (97.6 F) 03/28/2025 3:18 PM CDT Respiratory Rate - - Oxygen Saturation - - Inhaled Oxygen Concentration - - Weight 106 kg (233 lb 11 oz) 03/28/2025 3:18 PM CDT Height - - Body Mass [...] sulfamethoxazole-tr imethoprim (Bactrim) 400-80 mg per tabletIndications:A sthma With Chronic Obstructive Pulmonary Disease (HCC),Malignant Neoplasm Of Lung Adenocarcinoma Right (HCC) Take 1 tablet by mouth daily. 30 tablet 5 5 tiZANidine (Zanaflex) 2 mg tablet Take 2 mg by mouth every 8 (eight) hours as needed for muscle spasms. 5 valsartan (Diovan) 160 mg tablet Take 0.5 tablets (80 mg total) by mouth daily. 90 tablet 3 5 vitamins A,C,Z-bgno-qtftsz (PreserVision AREDS) 7,160 Units-113 mg-100 Units per [...] 04/12/20 25 predniSONE (Deltasone) 5 mg tabletIndications:A sthma With Chronic Obstructive Pulmonary Disease (HCC) Take 1 tablet (5 mg total) by mouth daily. 30 tablet 11 5 04/22/20 25 documented as of this encounter Progress Notes * Ange Sawyer M.D. - 03/28/2025 3:15 PM CDT ATTESTATION FOR MANAGEMENT VISIT I saw and evaluated the patient and participated in the means portions of the service as noted below.I reviewed the documentation of Ms.Alexis Una RN and agree with the findings and plan. The patient appears well on exam. We will continue with radiation as planned and we anticipate that she will complete treatments this week. We anticipate that Ms. Luz Richardson will complete radiation treatment as planned without interruptions. The course of treatment was tolerated moderately well. The patient experienced toxicities ofgrade 2 fatigue & dyspnea as well as grade 1 chest wall pain, cough, and esophagitis during radiation treatment. Follow-up will be with me in [address] chest. She will be seeing Dr. Phillip tomorrow and will ask him if he wants an abdominal scan as well to follow- up on the aortocaval lymph node now or later. Ange Sawyer M.D., 03/28/2025 SUBJECTIVE REASON FOR VISIT Evaluation for side effects while receiving radiation treatment for 1. Malignant Neoplasm Of Lung Adenocarcinoma Right (HCC) SUPERVISED BY: Ange Sawyer M.D. HISTORY OF PRESENT ILLNESS Ms. Luz Richardson is a 69 y.o. 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 Patient will be receiving weekly Taxol/Carboplatin under the care of Dr. Phillip at [facility]. Treatment Course: 1xLung Plan ID Fractions Dose / Fraction (cGy) Dose Treated (cGy) Dose Planned (cGy) First Treatment Last Treatment Elapsed Days [id number] 200 [id number] 02/14/2025 03/28/2025 42 Course Summary 02/14/2025 03/28/2025 42 The patient was seen and examined today with Dr. Sawyer. The patient reports feeling well overall with some moderate to sever fatigue. She reports that she is resting better. She reports stable breathing, improved cough with intermittent mucous production,some chest wall discomfort due to coughing. She is taking robitussin to thin her secretions and calm her cough, which in turn helps with her chest wall pain. Her throat pain is improved this week. She is struggling with taste changes and loss of appetite. She is eating soft foods such as mash potatoes, macaroni, cottage cheese, icecream and supplement drinks but reports she is able to eat regularfood as well. OBJECTIVE BP 113/72 (BP Location: Right arm, Patient Position: Sitting, Cuff Size: Regular) Pulse 96 Temp36.4 ??C (Temporal) Wt 106 kg BMI 37.74 kg/m?? PHYSICAL EXAM General: Alert and oriented in no apparent distress. She is currently using 2-3 L oxygen via nasal cannula at rest. 5-6 with ambulation. ASSESSMENT / PLAN #1 Locally and regionally [...] well overall and with anticipated side effects. We discussed the recovery and symptom timeline post radiation therapy. She may continue to take tylenol and use Magic Mouthwash as needed for pain. Her weight is stable overall. Dr. Sawyer was in for any questions or concerns. Patient will continue with treatment as planned. She can contact our care teamwith any questions or concerns. Toxicities reviewed with Dr. Sawyer. FOLLOW-UP 03/29: Office visit with Medical Oncology - Dr. Phillip 04/12: Office visit with Pulmonology Contrast chest CT and office visit with Dr. Sawyer in one month. Signed by: Elizabeth Heart R.N. 03/28/2025 3:23 PM CDT documented in this encounter Plan of Treatment Upcoming Encounters Date Type Department Care Team (Latest Contact Info) Description 05/04/2025 8:45 AM CDT Clinical Communication Virtual Review in [place], [place] [address] [place] [address] 05/04/2025 2:00 PM CDT Telemedicine Department of Oncology in [place], [place] [address] [address] Antoine Phillip M.D. [address] [place] [phone] 05/05/2025 3:20 PM CDT Telemedicine Department of Oncology in [place], [place] [address] [place] [address] Lexi Phillip APRN, C.N.P., D.N.P. [address] [place] [address] 05/06/2025 1:10 PM CDT Comprehensive Visit Division of Gastroenterology in [place], [place] [address] [place] [phone] Kati Colni M.D. [address] [place] [phone] 05/12/2025 2:00 PM CDT Comprehensive Visit Center for Sleep Medicine in [place], [place] [address] [place] [phone] Phil Dorman D.O., M.S. [address] [place] [phone] 08/09/2025 1:30 PM SUPPLIES PACKER Office Visit Department of Sleep Medicine in [place], [place] [address] [phone] Sallie White APRN, C.N.P., D.N.P., M.S.N. [address] [place] [address] Scheduled Orders Name Type Priority Associated Diagnoses Orde r Schedule Management Visit Radiation Oncology Routine Malignant Neoplasm Of Lung Adenocarcinoma Right (HCC) Once for 1 Occurrences starting 03/28/2025 until 03/28/2025 Scheduled Procedures Name Priority Associated Diagnoses Date/Ti me BRONCHOSCOPY FLEXIBLE Chronic Obstructive Pulmonary Disease Without Exacerbation (HCC) Abnormal Computed Tomography Chest Chronic Cough 05/03/2025 12:47 PM CDT Scheduled Referrals Name Type Priority Associated Diagnoses Orde r Schedule Radiation Oncology office visit (clinic) Outpatient Referral Routine Expected: 04/27/2025, Expires: 06/28/2026 documented as of this encounter Results * CT Chest with IV Contrast (04/26/2025 11:38 AM CDT) Anatomical Region Laterality Modality Chest, Thoracic RST LOS, Tho racic ARZ LOS, Thoracic ARZ LOS, Thoracic FLA LOS N/A Computed Tomography 04/26/2025 11:3 0 AM CDT Impressions 04/26/2025 12:23 PM CDT 1. New right basilar pulmonary opacities, likely infectious/inflammatory process. 2. No significant interval change or finding to suggest disease progression. 3. No abdominopelvic abnormality. Narrative 04/26/2025 12:23 PM CDT EXAM: CT CHEST WITH IV CONTRAST, CT ABDOMEN PELVIS WITH IV CONTRAST COMPARISON: CT 04/11/2025, 04/05/2025, 02/03/2025 FINDINGS: Lungs/Airways/Pleura: Patent tracheobronchial tree. Right upper lobe posttreatment changes. New right basilar tree-in-bud nodularities. No significant change in the irregular spiculated right upper lobe mass measuring up to approximately 4.5 cm. Stable partially calcified lobulated right upper lobe hamartoma and additional small solid nodules, including 4 mm left lower lobe nodule (4/380). Similar right middle lobe collapse and scattered atelectasis/scarring. Upper lobe predominant centrilobular and paraseptal emphysema. No pleural effusion or pneumothorax. Mediastinum: Unremarkable visualized thyroid gland. Right chest wall Port-A-Cath terminates in the SVC. Normal heart size. Trace pericardial effusion. Normal caliber great vessels. Arterial calcifications including coronary arteries. Stable prominent subcarinal and right hilar lymph nodes. Small hiatal hernia. Liver: Geographic steatosis along the falciform ligament. Gallbladder/Biliary System: No biliary ductal dilatation. Pancreas: Unremarkable. No pancreatic ductal dilatation. Spleen: Unremarkable. Adrenal Glands: Unremarkable. Kidneys & Ureters: No hydronephrosis. Renal cysts and too small to characterize subcentimeter hypodensities. Bladder: Moderately distended and within normal limits. Pelvis: No pelvic masses. Pelvic phleboliths. GI/Peritoneum: No abnormally dilated bowel loop. Colonic diverticulosis. No free air or fluid. Vessels: Nonaneurysmal abdominal aorta with atherosclerotic calcifications. Lymph Nodes: No abdominopelvic adenopathy. Decreased size of prior prominent claudio hepatis node measuring 0.5 cm in short axis diameter. Musculoskeletal: No acute or aggressive osseous lesion. Prior left proximal femoral fracture with intramedullary luh fixation. L3-5 posterior spinal fusion. Spondylosis. Glenohumeral degeneration. Small fat-containing umbilical hernia. 3D maximum intensity projection (MIP) images were created on a dependent workstation as ordered by the treating provider and reviewed by the radiologist to increase sensitivity for detection of pulmonary nodules. Procedure Note Hortencia Kennedy M.D. - 04/26/2025 EXAM: CT CHEST WITH IV CONTRAST, CT ABDOMEN PELVIS WITH IV CONTRAST COMPARISON: CT 04/11/2025, 04/05/2025, 02/03/2025 FINDINGS: Lungs/Airways/Pleura: Patent tracheobronchial tree. Right upper lobeposttreatment changes. New right basilar tree-in-bud nodularities. Nosignificant change in the irregular spiculated right upper lobe massmeasuring up to approximately 4.5 cm. Stable partially calcified lobulated right upper lobe hamartoma and additionalsmall solid nodules, including 4 mm left lower lobe nodule (4/380).Similar right middle lobe collapse and scattered atelectasis/scarring.Upper lobe predominant centrilobular and paraseptal emphysema. No pleural effusion or pneumothorax. Mediastinum: Unremarkable visualized thyroid gland. Right chest [id number]-[id number] terminates in the SVC. Normal heart size. Trace pericardialeffusion. Normal caliber great vessels. Arterial calcifications includingcoronary arteries. Stable prominent subcarinal and right hilar lymph nodes. Small hiatal hernia. Liver: Geographic steatosis along the falciform ligament. Gallbladder/Biliary System: No biliary ductal dilatation. Pancreas: Unremarkable. No pancreatic ductal dilatation. Spleen: Unremarkable. Adrenal Glands: Unremarkable. Kidneys & Ureters: No hydronephrosis. Renal cysts and too small tocharacterize subcentimeter hypodensities. Bladder: Moderately distended and within normal limits. Pelvis: No pelvic masses. Pelvic phleboliths. GI/Peritoneum: No abnormally dilated bowel loop. Colonic diverticulosis.No free air or fluid. Vessels: Nonaneurysmal abdominal aorta with atheroscleroticcalcifications. Lymph Nodes: No abdominopelvic adenopathy. Decreased size of priorprominent claudio hepatis node measuring 0.5 cm in short axis diameter. Musculoskeletal: No acute or aggressive osseous lesion. Prior leftproximal femoral fracture with intramedullary luh fixation. L3-5 posteriorspinal fusion. Spondylosis. Glenohumeral degeneration. Smallfat-containing umbilical hernia. 3D maximum intensity projection (MIP) images were created on a dependentworkstation as ordered by the treating provider and reviewed by theradiologist to increase sensitivity for detection of pulmonary nodules. IMPRESSION: 1. New right basilar pulmonary opacities, likely infectious/inflammatoryprocess. 2. No significant interval change or finding to suggest diseaseprogression. 3. No abdominopelvic abnormality. Ange CUMMINS CT PROCEDURES Final R esult documented in this encounter Visit Diagnoses Diagnosis Malignant Neoplasm Of Lung Adenocarcinoma Right (HCC) Malignant Neoplasm Of Rectum (HCC)- Primary Malignant Neoplasm Of Lung Adenocarcinoma Right (HCC) Abnormal Positron Emission Tomography Scan Lymphadenopathy Gastrointestinal Secondary Malignant Neoplasm Lymph Node Intrathoracic (HCC) documented in this encounter Additional Health Concerns Infection Onset Date Last Indicated Resolved Time Protective Environment 02/14/2025 02/14/202504/30 8:54 PM CDT Assessment Noted Time A fall risk assessment has been complete d for the patient 07/05/2024 4:06 PM CDT documented as of this encounter Care Teams American Studies Professor Relationship Specialty Start Date End Date Kati Colin M.D. [address] [place] [address] [place] [phone] PCP - General Family Medicine 03/09/24 documented as of this encounter
--- OUTSIDE RECORDS SUMMARY | 2025-03-29 10:49 | XMS_ITS | Encounter Summary ---
Author Organization [facility] Address [address] [place] [address] Care Team Providers Care Supersonic Engineer Name Role Phone Kati Colin M.D. Primary Care Provider Encounter Details Date Type Department Care Team (Latest Contact Info) Description 03/29/2025 10:49 AM CDT - 03/29/2025 11:59 PM CDT Hospital Encounter Department of Radiation Oncology in [place], [place] [address] [place] [phone] Ange Sawyer M.D. [address] [place] [phone] Discharge Disposition: Home or Self Care Social History Tobacco Use Types Packs/Day Years Used Date Smoking Tobacco: Former Cigarettes 0.8 94.4 0 09/29/1969 - 08/23/2018 Smokeless Tobacco: Never Comments:Quit smoking severa l times for several months Alcohol Use Standard Drinks/Week Comments Yes 1 (1 standard drink = 0.6 oz pur e alcohol) [facility] Utilities Answer Date Recorded In the past 12 months has [employer], gas, oil, or water company threatened [...] [facility] 12/26/2024 Comments No Sex and Gender Information Value Date Recorded Sex Assigned at Female 05/07/2024 7:38 AM CDT Legal 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 90 tablet 3 5 vitamins A,C,O-rrol-ycjpqo (PreserVision AREDS) 7,160 Units-113 mg-100 Units per [...] AM CDT Clinical Communication Virtual Review in [place], [place] [address] [place] [address] 05/04/2025 2:00 PM CDT Telemedicine Department of Oncology in [place], [place] [address], [place] [address] Antoine Phillip M.D. [address] [place] [phone] 05/05/2025 3:20 PM CDT Telemedicine Department of Oncology in [place], [place] [address] [place] [phone] Lexi Phillip, LOREN, C.N.P., D.N.P. [address] [place] [phone] 05/06/2025 1:10 PM CDT Comprehensive Visit Division of Gastroenterology in [place], [place] [address] [place] [address] Kati Colin M.D. [address] [place] [phone] 05/12/2025 2:00 PM CDT Comprehensive Visit Center for Sleep Medicine in [place], [place] [address] [place] [address] Phil Dorman D.O., M.S. [address] [place] [address] 08/09/2025 1:30 PM LOOPING INSPECTOR Office Visit Department of Sleep Medicine in [place], [place] [address] [place] [phone] Sallie White APRN, C.N.P., D.N.P., M.S.N. [address] [place] [phone] Scheduled Procedures Name Priority Associated Diagnoses Date/Ti [...] documented as of this encounter Care Teams Supersonic Engineer Relationship Specialty Start Date End Date Kati Colin M.D. [address] [facility] [place] [phone] PCP - General Family Medicine 03/09/24 documented as of this encounter
--- OUTSIDE RECORDS SUMMARY | 2025-03-29 14:20 | XMS_ITS | Encounter Summary ---
Author Organization [facility] Address [address] [place] [address] Care Team Providers Care Community Nurse Name Role Phone Kati Colin M.D. Primary Care Provider Reason for Referral * Specialty Diagnoses / Procedures Referred By Contac t Referred To Contact Diagnoses Malignant Neoplasm Of Lung Adenocarcinoma Right (HCC) Secondary Malignant Neoplasm Lymph Node Intrathoracic (HCC) Antoine Phillip M.D. [address] [place] [address] Phone: tel: fax: [facility] Region Referral ID Status Reason Start Date Expiration Date Visits Re quested Visits Authorized * Outpatient (Routine) - Authorized Specialty Diagnoses / Procedures Referred By Phani cruz Referred To Contact Oncology Antoine Phillip M.D. [address] [place] [address] Phone: tel: fax: [facility] Region Referral ID Status Reason Start Date Expiration Date V isits Requested Visits Authorized [id number] Authorized 03/29/2025 09/28/2026 1 1 * MRI/CAT/PET Scan (Routine) - Closed Specialty Diagnoses / Procedures Referred By Phani cruz Referred To Contact Radiology Diagnoses Malignant Neoplasm Of Lung Adenocarcinoma Right (HCC) Abnormal Positron Emission Tomography Scan Lymphadenopathy Gastrointestinal Procedures CT Abdomen Pelvis with IV Contrast Antoine Phillip M.D. [address] [place] [address] Phone: tel: fax: [facility] Region Referral ID Status Reason Start Date Expiration Date Visits Re quested Visits Authorized [id number] Closed 03/29/2025 06/29/2026 1 1 Reason for Visit * Episode Based Medications (Routine) - Authorized Specialty Diagnoses / Procedures Referred By Phani cruz Referred To Contact Diagnoses Malignant Neoplasm Of Lung Adenocarcinoma Right (HCC) Shannno Andre M.D. [address] [place] [address] Phone: tel: fax: Shannon Andre M.D. [address] [place] [address] Phone: tel: fax: Referral ID Status Reason Start Date Expiration Date V isits Requested Visits Authorized [id number] Authorized 02/10/2025 02/10/2027 99 99 Encounter Details Date Type Department Care Team (Late st Contact Info) Description 03/29/2025 2:20 PM CDT Telemedicine Department of Oncology in [place], [place] [address] [place] [address] Antoine Phillip M.D. [address] [place] [phone] Abnormal Positron Emission Tomography Scan (Primary Dx); Malignant Neoplasm Of Lung Adenocarcinoma Right (HCC); Lymphadenopathy Gastrointestinal; Secondary Malignant Neoplasm Lymph Node Intrathoracic (HCC); Anemia Chemotherapy Induced; Insufficiency Renal Social History Tobacco Use Types Packs/Day Years Used Date Smoking Tobacco: Former Cigarettes 0.8 94.4 0 09/29/1969 - 08/23/2018 Smokeless Tobacco: Never Comments:Quit smoking severa l times for several months Alcohol Use Standard Drinks/Week Comments Yes 1 (1 standard drink = 0.6 oz pur e alcohol) [facility] Utilities Answer Date Recorded In the past 12 months has e [employer], gas, oil, or water [employer] threatened to shut off services in your [...] have a [facility] place to live 12/26/2024 Comments No Sex and Gender Information Value Date Recorded Sex Assigned at Female 05/07/2024 7:38 AM CDT Legal Sex Female 3:35 PM LAB SUPPORT SERVICE TECH Gender Identity Female 05/07/2024 7:38 AM CDT Sexual Orientation Straight 05/07/2024 7: 38 AM CDT documented as of this encounter Progress Notes * Antoine Phillip M.D. - 03/29/2025 2:20 PM CDT CV VIDEO VISIT Consult conducted via real-time audio/video technology by Antoine Phillip M.D. in [facility] to the patient in Patient's Home PRIMARY CARE PHYSICIAN Kati Colin M.D. REQUESTING PROVIDER Shannon Andre M.D. 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 Richardson is a very pleasant 69 y.o. lady with a history of right lung cancer, oligometastatic rectal cancer as follows: Oncology History Malignant Neoplasm Of Lung Adenocarcinoma Right (HCC) 08/2021 Other History of pulmonary adenocarcinoma diagnosed in 08/2021 in the right upper lobe (TTF1 positive) with subsequent radiation therapy in November 2021 at [facility]. 12/10/2021 - 12/20/2021 Radiation Therapy 5000 cGy in 5 fractions to the right upper lung - [facility], Dr. Eber Rodriguez. 09/06/[address] Chest IMPRESSION: 1. Mild contusion of the right lateral abdominal wall. 2. No other traumatic abnormality identified in the chest, abdomen or pelvis. 3. Unchanged 2.1 cm lobulated nodule in the right upper lobe with internal calcifications. Again this is likely benign given its long-term stability. 4. Postoperative and posttreatment changes in the right upper lobe are similar. 5. Coronary artery calcifications. 6. Trace free pelvic fluid which is nonspecific. 04/27/[address] Chest IMPRESSION: 1. 2.2 cm lobulated solid right upper lobe pulmonary nodule with punctate calcifications. While technically indeterminate, this is favored to represent a benign hamartoma. However, given the patient's smoking history and history of multiple malignancies, recommend comparison with prior imaging studies to document stability as this appears new from most recent comparison chest radiograph 03/29/2002.If no additional prior imaging is available, attention [...] compression deformity. Recommend correlation with point tenderness. 11/08/2024 Other PFTs Pre: FVC: 1.93 L (61% predicted) FEV1: 0.97 L (40% predicted) DLCO: 7.1 ml/min/mmHg (34% predicted) Post: Not completed 12/09/[address] Chest Stable 2.2 cm right upper lobe nodule, patient's medical charts discuss a history of a previously biopsied benign hamartoma which may be this nodule given the appearance. Upper lung postoperative andtreatment related changes. Stable right upper lung fibronodular opacity from the comparison October 2024, though it has significantly increased since March 2024 now measuring up to approximately 2.9 x 5.1 x 1.2 cm with some surrounding groundglass opacity, concerning for possible neoplasm until proven otherwise. Scattered pulmonary subsegmental atelectasis. Few mildly prominent indeterminate mediastinal and right hilar lymph nodes, most notably a right paratracheal lymph node which measures up to 13 mm, the subcarinal ritesh conglomerate measures up to 13 x 25 mm, both of these are increased in size from the comparison March 2024. 12/13/2024 Critical Imaging PET-CT IMPRESSION: 1. Increasing mildly FDG avid linear soft tissue thickening along the right posteromedial upper lobe, suspicious for locally recurrent disease. 2. Multiple FDG avid mediastinal, right hilar and portal hepatic lymph nodes, suspicious for metastatic lymph node involvement. For example, * A right lower paratracheal lymph node with an SUV max of 7.1. * A right hilar lymph node with an SUV max of 6.7. Additional mildly FDG avid precaval lymph node with an SUV max of 5.2. 12/22/2024 Biopsy/Pathology A. Lung, Right upper lobe, transbronchial fine needle aspiration (smears/cell block): Nondiagnostic. Insufficient material for diagnosis. B. Lung, Right upper lobe, Biopsy Touch Prep (touch prep/tissue): Atypical. Rare atypical cells present on smears only. Tissue biopsy shows scant fragments of benign airway tissue and fibrin. C. Lymph node, Station 4 left, EBUS fine needle aspiration (smears/cell block): Nondiagnostic. No evidence of lymph node sampling seen. D. Lymph node, Station 7, EBUS fine needle aspiration (smears/cell block): Positive for malignancy.Metastatic adenocarcinoma. E. Lymph node, Station 4 right, EBUS fine needle aspiration (smears/cell block): Positive for malignancy. Metastatic adenocarcinoma, consistent with lung primary. F. Lymph node, Station 11 right, EBUS fine needle aspiration (smears/cell block): Suspicious. Abnormal glandular cells suspicious for adenocarcinoma. She was subsequently hospitalized due to postprocedure hemoptysis and increased oxygen needs. 12/22/2024 Other Admitted for monitoring in the setting of post-biopsy bleeding s/p EBUS staging and transbronchial needle aspiration/cryobiopsies/forceps biopsies of a RUL opacity. She was also treated for pneumonia. 12/24/2024 Critical Imaging MRI brain negative for metastatic disease. 01/05/2025 Tumor Board Discussion: We reviewed her complicated oncologic and medical history. We agreed that this likely represents locally and regionally recurrent lung cancer. The board agreed with obtaining the CT abdomen and pelvis (done January 04, 2025, imaging not available) at the time of tumor board. Recommendation: The board agreed with CT abdomen and considering biopsy of this node to rule out metastatic lung or metastatic rectal cancer. The board suggested adding AFP, CEA and CA19-9 blood worknow. The board suggested that if the [employer] testing is not sufficient that one could consider liquid biopsy. Given her performance status that one could consider chemo/immunotherapy followed by radiation therapy vs concurrent chemoradiotherapy pending ritesh evaluation and performance status improvement. The board brought up whether or not she had genetic consultation given her colorectal cancer history; we will look into this and discuss with the patient. 01/08/[address] Abdomen/Pelvis IMPRESSION: 1. Nonspecific sigmoid colitis. 2. Indeterminate small hypoenhancing areas in the medial right liver, possibly focal fat but given history of malignancy cannot exclude metastasis. 01/13/2025 Critical Imaging MR Abdomen 1. A few small areas of focal fatty infiltration in the liver. 2. No suspicious enhancing liver lesions identified. 01/13/2025 Other CEA 8 AFP 3 CA 19-9 30 01/14/2025 Other Medical Oncology consultation with Dr. Antoine Phillip who recommended consideration of EUS/biopsy to confirm/rule out metastasis of the portal lymph node. If positive for cancer, would discuss palliativechemoimmunotherapy, starting with carboplatin/pemetrexed and after 1-2 cycles then add pembrolizumab. However, if biopsy is negative, then would consider concurrent chemoradiation, usually considering weekly carboplatin/paclitaxel with radiation followed by maintenance immunotherapy. 01/21/2025 Surgery and Procedures EUS Post-op Diagnoses: - Two enlarged lymph nodes were visualized in the periportal region, largest measuring 25 mm. Fine needle biopsy performed. - A few benign-appearing lymph nodes were visualized in the subcarinal mediastinum (level 7). Not sampled. - Pancreatic steatosis. - There was no sign of significant pathology in the main pancreatic duct. - There was no sign of significant pathology in the common bile duct and in the gallbladder. - There was no evidence of significant pathology in the left lobe of the liver. FINAL DIAGNOSIS A. Lymph Node, Periportal, core bx, biopsy: Predominantly blood with scant fragments of benign lymphoid tissue. See comment. Comment (Part A): The sample is overall scant in nature. If clinical concern persists, additional tissue sampling may be considered if clinically warranted. 02/14/2025 - 03/29/2025 Radiation Therapy Radiation Therapy Treatment Details (02/14/2025 - 03/29/2025) Site: Right Lung Technique: IMRT Goal: Curative Planned Treatment Start Date: 02/14/2025 02/14/2025 - Chemotherapy CARBOplatin AUC 2 Weekly / PACLitaxel 50 mg/m2 ( with Radiation ) ( Lung ) Start Date: 02/14/2025 04/29/2025 - Chemotherapy Afatinib Start Date: 04/29/2025 (Planned) Malignant Neoplasm Of Rectum (HCC) 2008 Initial Diagnosis History of rectal cancer. She presented with rectal bleeding. Surgical excision of the rectal tumorwas done in October 2008, but due to a close margin she had postoperative chemoradiation, using Xeloda as the radiosensitizer. Her follow up scans had failed to show any evidence of recurrent disease. She saw Dr. Juares in November 2009, and had a CT guided biopsy of a pulmonary nodule which by her report showed a hamartoma. However, she had a follow up PET/CT 06/11 due to the lesion slowly enlarging on her CT scan, and this showed mild FDG avidity, and there was also a second smaller area ofabout 9 mm which was more FDG avid. She was smoking about 1 pack per day up until about a year ago,and has about a 33 pack year history. She saw Dr. Juares and he arranged for a biopsy of the smaller and more FDG avid lung nodule. This surprisingly showed metastatic adenocarcinoma consistent with rectal primary. She underwent resection with Dr. Bruno October 2013 and was found to have a 1.2 cm metastasis c/w rectal primary. The hamartoma was left behind to avoid lobectomy. She received ten cycles of FOLFOX after surgery. Constitutional: Positive for fatigue. - Negative for fever, loss of appetite, night sweats and weight loss of more than 10 pounds. Eyes: - Negative for visual problems. Respiratory: - Negative for coughing up mucus (phlegm), dry cough and shortness of breath. Cardiovascular: - Negative for chest pain, pressure or tightness. Gastrointestinal: - Negative for abdominal (belly) pain or cramping, blood in stool, constipation, diarrhea, nausea and vomiting. Genitourinary: - Negative for blood in urine. Hematologic: - Negative for abnormal lumps or bumps. Musculoskeletal: - Negative for pain or stiffness in the joints. Neurological: - Negative for seizures, light-headedness, headaches and weakness in arms or legs. REVIEW OF SYSTEMS Otherwise negative excepted as noted above. The following portions of the patient's history were reviewed and updated as appropriate: Allergiesand current medications. PAST MEDICAL HISTORY Medical History[1] PAST SURGICAL HISTORY Surgical History[2] CURRENT MEDICATIONS Medications Ordered Prior to Encounter[3] ALLERGIES/CONTRAINDICATIONS Allergies Allergen Reactions Doxycycline Diarrhea Hydrocodone Itching and Rash HEALTH MAINTENANCE Health Maintenance Topic Date Due Hepatitis C Screening Never done Hepatitis B Vaccines (1 of 3 - Risk 3-dose series) Never done Hemoglobin A1C 05/01/2025 Zoster Vaccines (2 of 2) 04/07/2025 Influenza Vaccine (1) 06/29/2025 Visit: Medicare Annual Wellness 07/06/2025 Mammogram 07/15/2025 Diabetic Office Visit with Foot Exam 10/11/2025 Urine Albumin 11/01/2025 Dilated Eye Exam 11/03/2025 Visit: Chronic Disease, age 18+ 01/03/2026 Office Visit for Blood Pressure Check / Re-check 03/14/2026 Creatinine Level (Kidney Function Test) 03/28/2026 Potassium Level 03/28/2026 Sodium Level 03/28/2026 DTaP,Tdap,and Td Vaccines (2 - Tdap) 04/12/2029 Colorectal Cancer Surveillance 01/21/2030 Lipid (Cholesterol) Screening 02/02/2030 Depression Screening (Annual PHQ-2) Completed Fall Risk Screen (Annual) Completed COVID-19 Vaccine Completed RSV vaccine - (32-36 weeks) or 60+ years Completed Pneumococcal vaccine (50+ years) Completed IPV Vaccines Aged Out HPV Vaccines Aged Out Bone Density Scan (Osteoporosis Screen) Discontinued Lung Cancer Screening Discontinued FAMILY HISTORY Family History[4] SOCIAL HISTORY Social History Socioeconomic History Marital status: Single Spouse name: Not on file Number of children: Not on file Years of education: Not on file Highest education level: Not on file Occupational History Not on file Tobacco Use Smoking status: Former Current packs/day: 0.00 Average packs/day: 0.8 packs/day for 94.4 years (74.9 ttl pk-yrs) Types: Cigarettes Start date: 09/29/1969 Quit date: 08/23/2018 Years since quittin.6 Smokeless tobacco: Never Tobacco comments: Quit smoking several times for several months Vaping Use Vaping status: never used Substance and Sexual Activity Alcohol use: Yes Alcohol/week: 1.0 standard drink of alcohol Types: 1 Standard drinks or equivalent per week Drug use: Not Currently Frequency: 4.0 times per week Types: Marijuana Comment: Medical marijuana-discontinued july 2024. Used sporadically for two years Sexual activity: Not Currently Partners: Male control/protection: Condom, Pill, Post-menopausal Other Topics Concern Not on file Social History Narrative Not on file Social Drivers of Health Food Insecurity: No Food Insecurity (02/03/2025) Received from [employer] [facility] Food Insecurity Do you worry your food will run out before you are able to buy more?: 1 Transportation Needs: No Transportation Needs (02/03/2025) Received from [employer] [facility] Transportation Needs Does lack of transportation keep you from medical appointments?: 1 Does lack of transportation keep you from work, meetings or getting things that you need?: 1 Intimate Partner Violence: Patient Unable To Answer (12/26/2024) Humiliation, Afraid, Rape, and Kick questionnaire Fear of Current or Ex-Partner: Patient unable to answer Emotionally Abused: Patient unable to answer Physically Abused: Patient unable to answer Sexually Abused: Patient unable to answer Housing Stability: Low Risk (02/03/2025) Received from [employer] [facility] Housing Stability What is your housing situation today?: 1 OBJECTIVE DIAGNOSTICS LABORATORY DATA: Lab Results Component Value Date WBC 2.6 (L) 03/28/2025 HGB 9.8 (L) 03/28/2025 HCT 31.0 (L) 03/28/2025 MCV 90.6 03/28/2025 PLT 155 (L) 03/28/2025 Results from last 7 days Lab Units 03/28/25 1054 HEMOGLOBIN g/dL 9.8* HEMATOCRIT % 31.0* RBC AUTO x10(12)/L 3.42* MCV fL 90.6 RBC DISTRIBUTION WIDTH AUTO % 17.0* WBC x10(9)/L 2.6* NEUTROPHILS AUTO x10(9)/L 2.04 PLATELETS AUTO x10(9)/L 155* Lab Results Component Value Date NA 140 03/28/2025 CL 99 03/28/2025 CREATININE 1.08 (H) 03/28/2025 EGFR 56 (L) 03/28/2025 BUN 20 03/28/2025 ANIONGAP 7 03/28/2025 GLUCOSE 183 (H) 03/28/2025 CALCIUM 8.8 03/28/2025 Lab Results Component Value Date ALT 20 03/11/2025 AST 23 03/11/2025 ALKPHOS 75 03/11/2025 BILITOT 0.4 03/11/2025 RADIOLOGICAL DATA: Radiology data reviewed. DX Chest AP or PA and Lateral 2 Views Narrative: EXAM: DX CHEST AP OR PA AND LATERAL 2 VIEWS Clinical: Weakness Imaging: Right-sided chest port in place. Right-sided perihilar mass. There are seen on CT 02/08/2025, which demonstrated the partially calcified mass in the anterior right upper lobe. Chronic bibasilar multifocal scarring. Currently no significant pulmonary edema or definite focal consolidation identified. Impression: No acute significant abnormality detected, for any incidental findings see descriptive report text. ASSESSMENT / PLAN ASSESSMENT Diagnosis Plan 1. Abnormal Positron Emission Tomography Scan CT Abdomen Pelvis with IV Contrast CBC with Differential, Blood Comprehensive Metabolic Panel 2. Malignant Neoplasm Of Lung Adenocarcinoma Right (HCC) Oncology office visit (clinic) CT Abdomen Pelvis with IV Contrast CBC with Differential, Blood Comprehensive Metabolic Panel Treatment Education Verbal Consent Nursing Chemotherapy Education Oncology - Chemo education visit (clinic) 3. Lymphadenopathy Gastrointestinal CT Abdomen Pelvis with IV Contrast CBC with Differential, Blood Comprehensive Metabolic Panel 4. Secondary Malignant Neoplasm Lymph Node Intrathoracic (HCC) Treatment Education Verbal Consent Nursing Chemotherapy Education Oncology - Chemo education visit (clinic) 5. Anemia Chemotherapy Induced 6. Insufficiency Renal Ms. Richardson is a very pleasant 69 y.o. lady with a history of HTN, T2DM with diabetic neuropathy, COPD, chronic hypoxemic respiratory failure on baseline 3 L NC, pulmonary HTN, prior SAH, prior carotid endarterectomy, PFO s/p closure, osteoporosis on alendronate, rectal carcinoma in 2008 s/p resection and adjuvant chemoradiation and subsequent metastasis to the lung s/p wedge resection in 10/2013 followed by 10 cycles of adjuvant FOLFOX, RUL pulmonary hamartoma in 2009, and pulmonary adenocarcinoma of the RUL diagnosed in 08/2021 (TTF1 positive) s/p radiation in 2021 . She was found to have confirmed recurrent disease involving mediastinal lymph nodes, EGFR c.2156G>C (p.G719A) (VAF: 45%) and c.2582T>A (p.L861Q) (VAF: 44%) biopsy complicated by bleeding and pneumonia. She was also found to have an indeterminate portal lymph node, biopsy showed scant benign lymphoid tissue. She started concurrent carboplatin/paclitaxel with RT in in 01/2025. I had an extensive discussion with Luz regarding her condition in the presence of her daughter Deena. He will be completing her chemoradiation course this week. Dr. Sawyer kindly arranged for CT chest follow up end of this month. I would recommend adding CT abdomen pelvis for follow up of her previously indeterminate portal lymph node. Otherwise, her case was kindly reviewed by precision medicine team in [place] and given her EGFR G710A and L861Q mutations, they agreed with consideration of afatinib extrapolating from data on osimertinib in other EGFR mutations in this setting. He was counseled on its potential adverse effects and is willing to consider it. If not authorized then we would recommend durvalumab maintenance. PLAN Proceed with last dose of carboplatin/paclitaxel Add CT abdomen to CT chest scheduled on 04/26 We will start the authorization process for afatinib X 3 years , if not then durvalumab Ensure adequate hydration PATIENT EDUCATION Ready to learn, no apparent learning barriers were identified; learning preferences include listening. Explained diagnosis and treatment plan; patient expressed understanding of the content. ADMINISTRATIVE BILLING I personally spent 40 minutes in care of the patient today. Orders Placed This Encounter Procedures CT Abdomen Pelvis with IV Contrast CBC with Differential, Blood Comprehensive Metabolic Panel Oncology office visit (clinic) Oncology - Chemo education visit (clinic) Treatment Education Verbal Consent Nursing Chemotherapy Education [1] Past Medical History: Diagnosis Date Anemia 2010 Cataract 2006 Chronic Obstructive Pulmonary Disease (HCC) 2007 Colitis Ulcerative (HCC) 1972 Complication Anesthesia Initial 2020 Degeneration Macular 2017 Diabetes Mellitus NOS 2014 Diverticulosis Gastroesophageal Reflux Disease NOS 2006 Hyperlipidemia 1999 Hypertension NOS 1999 Malignant Neoplasm Of Rectum Adenocarcinoma (HCC) 2008&2014 Malignant Neoplasm Of Unspecified Part Of Lung Laterality Unknown (HCC) 2022 Migraine Headache 2009 Osteopenia 2017 Osteoporosis February 2024 Other Injury Of Unspecified Body Region 2019 Most recent of many Other Specified Health Status 2020 Brain bleed Pneumonia 2007 Polyp Colon 2006 Skin Cancer (Primary) NOS 2020 Sleep Apnea 2019 [2] Past Surgical History: Procedure Laterality Date ARTERY SURGERY 2004 BRONCHOSCOPY FLEXIBLE: EBUS TBNA ENDOBRONCHIAL ULTRASOUND NEEDLE ASPIRATION N/A 12/22/2024 Procedure: BRONCHOSCOPY FLEXIBLE, ENDOBRONCHIAL ULTRASOUND GUIDED TRANSBRONCHIAL NEEDLE ASPIRATION.; Surgeon: Coy Cortez M.D.; Location: [facility] BRONCHOSCOPY FLEXIBLE: TRANSBRONCHOSCOPIC BIOPSY (FORCEPS) N/A 12/22/2024 Procedure: BRONCHOSCOPY FLEXIBLE, TRANSBRONCHOSCOPIC BIOPSY, FORCEPS.; Surgeon: Coy Cortez M.D.; Location: [facility] OR CATARACT EXTRACTION W/ INTRAOCULAR LENS IMPLANT Bilateral 2006 SECTION 74,75,77,86,88 5 times ENDARTERECTOMY CAROTID ARTERY WITH OR WITHOUT PATCH ANGIOPLASTY - INTRAOPERATIVE EEG Right 10/01/2019 KNEE SURGERY LUNG SURGERY 2009 Rectal cancer tumor removed ORIF FEMUR FRACTURE Left OTHER SURGICAL HISTORY Spinal fusion 2006, rectal tumor removed 2008, lung surgery 2013 PATENT FORAMEN OVALE CLOSURE ROBOTIC-ASSISTED BRONCHOSCOPY N/A 12/22/2024 Procedure: ROBOTIC-ASSISTED BRONCHOSCOPY; Surgeon: Coy Cortez M.D.; Location: [facility] SPINAL FUSION TONSILLECTOMY 1959 [3] Current Outpatient Medications on File Prior to Visit Medication Sig Dispense Refill acetaminophen (TylenoL 8 Hr) 650 mg ER tablet Take 1,300 mg by mouth 2 (two) times a day. acetaminophen-codeine (TylenoL #3) 300-30 mg per tablet Take 1 tablet by mouth every 4 (four) hoursas needed. acetaminophen-codeine (TylenoL #3) 300-30 mg per tablet Take 1-2 tablets by mouth every 6 (six) hours as needed for pain Indications: Chronic Pain/Nonacute Pain. 90 tablet 0 albuterol 90 mcg/actuation inhaler Inhale 2 puffs every 6 (six) hours as needed for wheezing. 18 g 3 alendronate (Fosamax) 10 mg tablet Take 1 tablet (10 mg total) by mouth daily before morning meal. (Patient not taking: Reported on 03/14/2025) 90 tablet 3 ammonium lactate (Lac-Hydrin) 12 % lotion Apply 1 Application topically 2 (two) times a day. azithromycin (Zithromax) 500 mg tablet 500 mg daily on M, W, F 36 tablet 3 B complex-vitamin (Super B-50) capsule Take 1 capsule by mouth daily. budesonide (Pulmicort) 1 mg/2 mL nebulizer solution Inhale 2 mL (1 mg total) by nebulization 2 (two) times a day. Rinse mouth with water after use to reduce aftertaste and incidence of candidiasis. Do not swallow. 120 mL 11 cetirizine (ZyrTEC) 10 mg tablet Take 10 mg by mouth every morning. cholecalciferol, vitamin D3, (VITAMIN D3 ORAL) Take 2 gummies by mouth daily. Patient unsure of strength dapagliflozin propanediol (Farxiga) 5 mg tablet Take 5 mg by mouth daily. dextromethorphan-guaiFENesin (Robitussin-DM) 10-100 mg/5 mL syrup Take 5 mL by mouth every 4 (four)hours as needed for cough. 235 mL 3 diclofenac sodium (Voltaren) 1 % gel Apply 2 g topically 4 (four) times a day as needed. diphenhydramine, lidocaine 2%, nystatin, antacid (mw) Take 5-10 mL by mouth 4 (four) times a day after meals and bedtime. Hold in mouth for 1 minute.Do not eat or drink for 15-30 minutes after use. You may swallow to help with throat discomfort. 240 mL 11 DME Oxygen 3 L by continuous inhalation route daily. DME Oxygen DME Order - for details see Order Report 1 each 0 DME Oxygen DME Order - for details see Order Report 1 each 0 DME Oxygen DME Order - for details see Order Report 1 each 0 ensifentrine (Ohtuvayre) 3 mg/2.5 mL suspension for nebulization Inhale 3 mg 2 (two) times a day. 150 mL 11 ferrous sulfate 324 mg (65 mg iron) DR tablet Take 65 mg of iron by mouth daily. formoterol (Perforomist) 20 mcg/2 mL nebulizer solution Inhale 2 mL (20 mcg total) by nebulization 2 (two) times a day. 360 mL 3 furosemide (Lasix) 20 mg tablet Take 1 tablet (20 mg total) by mouth daily. M, W, F 90 tablet 3 glipiZIDE (GlucotroL XL) 2.5 mg 24 hr tablet TAKE 1 TABLET EVERY DAY WITH BREAKFAST 90 tablet 3 ipratropium-albuteroL (DuoNeb) 0.5-2.5 mg/3 mL nebulizer solution Inhale 3 mL by nebulization 4 (four) times a day as needed for wheezing or shortness of breath. 90 mL 0 levoFLOXacin (Levaquin) 750 mg tablet Take 750 mg by mouth. lidocaine (Lidoderm) 5 % adhesive patch,medicated Place 1 patch on the skin daily. Apply to back daily. Keep patch on for 12 hours and take off for 12 hours. 30 patch 1 montelukast (Singulair) 10 mg tablet take 1 tablet by mouth daily 90 tablet 3 multivitamin tablet Take 1 tablet by mouth daily. OLANZapine (ZyPREXA) 5 mg tablet Take 1 tablet (5 mg total) by mouth at bedtime as needed (nausea, vomiting). May take dose early if needed. 30 tablet 3 omeprazole (PriLOSEC) [address] capsule Take 1 capsule (20 mg total) by mouth daily before morning meal. 90 capsule 0 ondansetron (Zofran) 8 mg tablet Take 1 tablet (8 mg total) by mouth every 8 (eight) hours as needed for nausea or vomiting (unrelieved by prochlorperazine). 30 tablet 3 potassium chloride 10 mEq ER tablet Take 1 tablet by mouth daily. predniSONE (Deltasone) 5 mg tablet Take 1 tablet (5 mg total) by mouth daily. 30 tablet 11 predniSONE (Deltasone) 5 mg tablet Take 5 mg by mouth daily. prochlorperazine (Compazine) 10 mg tablet Take 1 tablet (10 mg total) by mouth every 6 (six) hours as needed for nausea or vomiting. 30 tablet 3 revefenacin (Yupelri) 175 mcg/3 mL solution for nebulization nebulizer solution Inhale 3 mL (0.175 mg total) by nebulization daily. 270 mL 3 rosuvastatin (Crestor) 40 mg tablet Take 1 tablet by mouth at bedtime. sulfamethoxazole-trimethoprim (Bactrim) 400-80 mg per tablet Take 1 tablet by mouth daily. 30 tablet 5 tiZANidine (Zanaflex) 2 mg tablet Take 2 mg by mouth every 8 (eight) hours as needed for muscle spasms. [Paused] valsartan (Diovan) 160 mg tablet Take 0.5 tablets (80 mg total) by mouth daily. 90 tablet 3 vitamins A,C,X-aymy-uvjpue (PreserVision AREDS) 7,160 Units-113 mg-100 Units per tablet Take 1 tablet by mouth 2 (two) times a day. No current facility-administered medications on file prior to visit. [4] Family History Problem Relation Name Age of Onset Uterine cancer Mother Martha 50 - 59 Coronary artery disease Mother Martha of pulmonary embolism Hypertension Mother Martha Pulmonary embolism Mother Martha Heart attack Mother Martha Stented coronary artery Mother Martha Hyperlipidemia Mother Martha Arthritis Mother Martha Asthma Mother Martha Migraines Mother Martha Anxiety disorder Mother Martha Diabetes Father Edward Alcohol abuse Father Edward Diabetes Brother Vince Hypertension Brother Vince Hyperlipidemia Brother Vince Alcohol abuse Brother Vince Drug abuse Brother Vince Anxiety disorder Brother Vince Suicide Attempts Brother Vince COPD Daughter PCOS - Polycystic ovarian syndrome Daughter Hyperlipidemia Daughter PCOS - Polycystic ovarian syndrome Daughter Other (knee problems) Son Testicular mass Son unsure if cancer Autoimmune disorder Son Lung cancer Maternal Grandfather Heart attack Maternal Grandmother Stacy Hypertension Maternal Grandmother Stacy Arthritis Maternal Grandmother Stacy Drug abuse Sister Ludmila Uterine cancer Mother's Sister 50 - 59 Uterine cancer Mother's Sister Emphysema Mother's Sister Uterine cancer Mother's Sister Stomach cancer Mother's Sister Colon cancer Mother's Brother documented in this encounter Plan of Treatment Upcoming Encounters Date Type Department Care Team (Latest Contact Info) Description 05/04/2025 8:45 AM CDT Clinical Communication Virtual Review in [place], [place] [address] [place] [address] 05/04/2025 2:00 PM CDT Telemedicine Department of Oncology in [place], [place] [address] [place] [address] Antoine Phillip M.D. [address] [place] [phone] 05/05/2025 3:20 PM CDT Telemedicine Department of Oncology in [place], [place] [address] [place] [phone] Lexi Phillip, FIELD FOREMAN, C.N.P., D.N.P. [address] [place] [address] 05/06/2025 1:10 PM CDT Comprehensive Visit Division of Gastroenterology in [place], [place] [address] [place] [address] Kati Colin M.D. [address] [place] [phone] 05/12/2025 2:00 PM CDT Comprehensive Visit Center for [facility] Medicine in [place], [place] [address] [place] [address] Phil Dorman D.O., M.S. [address] [place] [address] 08/09/2025 1:30 PM LAB SUPPORT SERVICE TECH Office Visit Department of Sleep Medicine in [place], [place] [address] [place] [address] Sallie White APRN, C.N.P., D.N.P., M.S.N. [address] [place] [address] Scheduled Procedures Name Priority Associated Diagnoses Date/Ti me BRONCHOSCOPY FLEXIBLE Chronic Obstructive Pulmonary Disease Without Exacerbation (HCC) Abnormal Computed Tomography Chest Chronic Cough 05/03/2025 12:47 PM CDT Scheduled Referrals Name Type Priority Associated Diagnoses Orde r Schedule Oncology office visit (clinic) Outpatient Referral Routine Expected: 04/29/2025, Expires: 06/29/2026 Oncology - Chemo education visit (clinic) Outpatient Referral Routine Malignant Neoplasm Of Lung Adenocarcinoma Right (HCC) Secondary Malignant Neoplasm Lymph Node Intrathoracic (HCC) Expected: 04/28/2025, Expires: 07/29/2026 documented as of this encounter Results * (ABNORMAL) Comprehensive Metabolic Panel (05/02/2025 7:43 AM CDT) Pathologist [facility] Potassium, P 3.7 3.6 - 5.2 mmol/L 05/02/2025 11:31 AM CDT OWAT Sodium, P 142 135 - 145 mmol/L 05/02/2025 11:31 AM CDT OWAT Chloride, P 102 98 - 107 mmol/L 05/02/2025 11:31 AM CDT OWAT Bicarbonate, P 30(H) 22 - 29 mmol/L 05/02/2025 11:31 AM CDT OWAT Anion Gap, P 10 7 - 15 05/02/2025 11:31 AM CDT OWAT BUN (Blood Urea Nitrogen), P 15 6 - 21 mg/dL 05/02/2025 11:31 AM CDT OWAT Creatinine 0.69 0.59 - 1.04 mg/dL 05/02/2025 11:31 AM CDT OWAT Estimated GFR (eGFR) >90 >=60 mL/min/BS A 05/02/2025 11:31 AM CDT OWAT Comment: Estimated GFR calculated using the 2020 CKD_EPI creatinine equation. Calcium, Total, P 8.9 8.8 - 10.2 mg/dL 05/02/2025 11:31 AM CDT OWAT Glucose, P 186(H) 70 - 140 mg/dL 05/02/2025 11:31 AM CDT OWAT Protein, Total, P 6.7 6.3 - 7.9 g/dL 05/02/2025 11:31 AM CDT OWAT Albumin, P 3.8 3.5 - 5.0 g/dL 05/02/2025 11:31 AM CDT OWAT Aspartate Aminotransferase (AST), P 21 8 - 43 U/L 05/02/2025 11:31 AM CDT OWAT Alkaline Phosphatase, P 71 35 - 104 U/L 05/02/2025 11:31 AM CDT OWAT Alanine Aminotransferase (ALT), P 23 7 - 45 U/L 05/02/2025 11:31 AM CDT OWAT Bilirubin, Total, P 0.5 0.0 - 1.2 mg/dL 05/02/2025 11:31 AM CDT OWAT Blood (Blood, Venous) 05/02/2025 7:43 AM CDT 05/02/2025 10:28 AM CDT us Antoine Phillip M.D. LAB BLOOD ADD-ON Final Result [facility] [address] [place] [address], [place] OWAT [facility] in [place] [address] [place] [address] * (ABNORMAL) CBC with Differential, Blood (05/02/2025 7:43 AM CDT) Hemoglobin 10.2(L) 11.6 - 15.0 g/dL 05/02/2025 10:38 AM CDT OWAT Hematocrit 32.4(L) 35.5 - 44.9 % 05/02/2025 10:38 AM CDT OWAT Erythrocytes 3.33(L) 3.92 - 5.13 x10(12)/L 05/02/2025 10:38 AM CDT OWAT MCV 97.3 78.2 - 97.9 fL 05/02/2025 10:38 AM CDT OWAT RBC Distrib Width 23.6(H) 12.2 - 16.1 % 05/02/2025 10:38 AM CDT OWAT Platelet Count 132(L) 157 - 371 x10(9)/L 05/02/2025 10:38 AM CDT OWAT Leukocytes 6.2 3.4 - 9.6 x10(9)/L 05/02/2025 10:38 AM CDT OWAT Neutrophils 4.60 1.56 - 6.45 x10(9)/L 05/02/2025 10:38 AM CDT OWAT Lymphocytes 0.81(L) 0.95 - 3.07 x10(9)/L 05/02/2025 10:38 AM CDT OWAT Monocytes 0.64 0.26 - 0.81 x10(9)/L 05/02/2025 10:38 AM CDT OWAT Eosinophils 0.09 0.03 - 0.48 x10(9)/L 05/02/2025 10:38 AM CDT OWAT Basophils 0.03 0.01 - 0.08 x10(9)/L 05/02/2025 10:38 AM CDT OWAT Blood (Blood, Venous) 05/02/2025 7:43 AM CDT 05/02/2025 10:30 AM CDT us Antoine Phillip M.D. LAB BLOOD ADD-ON Final Result [facility] [address] [place] [address], [place] [facility] [place] [address] [place] [address] * CT Abdomen Pelvis with IV Contrast (04/26/2025 11:38 AM CDT) Anatomical Region Laterality Modality Abdomen, Pelvis, Abdominal R ST LOS, Abdominal ARZ LOS, Abdominal FLA LOS N/A Computed Tomography 04/26/2025 11:4 0 AM CDT Impressions 04/26/2025 12:23 PM [...] Mediastinum: Unremarkable visualized thyroid gland. Right chest exlcOmkq-T-Wlty terminates in the SVC. Normal heart size. [...] to suggest diseaseprogression. 3. No abdominopelvic abnormality. Antoine Phillip M.D. 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 [address] [place] [phone] PCP - General Family Medicine 03/09/24 documented as of this encounter
--- OUTSIDE RECORDS SUMMARY | 2025-03-30 09:00 | XMS_ITS | Encounter Summary ---
Author Organization [facility] Address [address] [place] [address] Care Team Providers Care [employer] Name Role Phone Kati Colin M.D. Primary Care Provider [phone] Reason for Visit * Reason Comments Chemotherapy chemo * Episode Based Medications (Routine) - Authorized Specialty Diagnoses / Procedures Referred By Phani cruz Referred To Contact Diagnoses Malignant Neoplasm Of Lung Adenocarcinoma Right (HCC) Shannon Andre M.D. [address] [place] [address] Phone: tel: fax: Shannon Andre M.D. [address] [place] [address] Phone: tel: fax: Referral ID Status Reason Start Date Expiration Date V isits Requested Visits Authorized [id number] Authorized 02/10/2025 02/10/2027 99 99 Encounter Details Date Type Department Care Team (Late st Contact Info) Description 03/30/2025 9:00 AM CDT Infusion Department of Infusion Therapy in [place], [place] [address] [place] [address] Antoine Phillip M.D. [address] [place] [phone] Malignant Neoplasm Of Rectum (HCC) (Primary Dx); Malignant Neoplasm Of Lung Adenocarcinoma Right (HCC); Secondary Malignant Neoplasm Lymph Node Intrathoracic (HCC) Social History Tobacco Use Types Packs/Day Years Used Date Smoking Tobacco: Former Cigarettes 0.8 94.4 0 09/29/1969 - 08/23/2018 Smokeless Tobacco: Never Comments:Quit smoking severa l times for several months Alcohol Use Standard Drinks/Week Comments Yes 1 (1 standard drink = 0.6 oz pur e alcohol) [facility] [employer] Answer Date Recorded In the past 12 months has e electric, gas, oil, or water [employer] threatened to shut off services in your [...] your living situation today? 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 Gender Identity Female 05/07/2024 7:38 AM CDT Sexual Orientation Straight 05/07/2024 7: 38 AM CDT documented as of this encounter Last Filed Vital Signs Vital Sign Reading Time Taken Comments Blood Pressure 126/63 03/30/2025 9:20 AM CDT Pulse 91 03/30/2025 9:20 AM CDT Temperature 36.7 C (98.1 F) 03/30/2025 9:20 AM CDT Respiratory Rate 18 03/30/2025 9:20 AM CDT Oxygen Saturation 93% 03/30/2025 9:20 AM CDT Inhaled Oxygen Concentration - - Weight - - Height - - Body Mass Index - - documented in this encounter Plan of Treatment Upcoming Encounters Date Type Department Care Team (Latest Contact Info) Description 05/04/2025 8:45 AM CDT Clinical Communication Virtual Review in [place], [place] [address] [place] [address] 05/04/2025 2:00 PM CDT Telemedicine Department of Oncology in [place], [place] [address], [place] [address] Antoine Phillip M.D. [address] [place] [phone] 05/05/2025 3:20 PM CDT Telemedicine Department of Oncology in [place], [place] [address] [place] [phone] Lexi Phillip, LOREN, C.N.P., D.N.P. [address] [place] [phone] 05/06/2025 1:10 PM CDT Comprehensive Visit Division of Gastroenterology in [place], [place] [address] [place] [address] Kati Colin M.D. [address] [place] [address] 05/12/2025 2:00 PM CDT Comprehensive Visit Center for Sleep Medicine in [place], [place] [address] [place] [phone] Phil Dorman D.O., M.S. 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 [address] [phone] Scheduled Procedures Name Priority Associated Diagnoses Date/Ti me BRONCHOSCOPY FLEXIBLE Chronic Obstructive Pulmonary Disease Without Exacerbation (HCC) Abnormal Computed Tomography Chest Chronic Cough 05/03/2025 12:47 PM CDT documented as of this encounter Visit Diagnoses Diagnosis Malignant Neoplasm Of Rectum (HCC)- Primary Malignant Neoplasm Of Lung Adenocarcinoma Right (HCC) Secondary Malignant Neoplasm Lymph Node Intrathoracic (HCC) documented in this encounter Administered Medications Inactive Administered Medications - up to 3 most recent administrations Medication Order MAR Action Action Date Dose Rate Site CARBOplatin 220 mg in NaCl 0.9% 297 mL IVPB (Paraplatin) 220 mg (rounded from 216.8 mg, Target AUC = 2), intravenous, at 594 mL/hr, Administer over 30 Minutes, Once, On Fri03/30/25 at 1115, For 1 doseIndications:Malignant Neoplasm Of Lung Adenocarcinoma Right (HCC) New Bag 03/30/2025 11:04 AM CDT 220 mg 594 mL/hr cetirizine tablet 10 mg (ZyrTEC) 10 mg, oral, Once, On Fri03/30/25 at 0945, For 1 dose, Give at least 30 minutes prior to PACLitaxel.Indications:Malign ant Neoplasm Of Lung Adenocarcinoma Right (HCC) Given 03/30/2025 9:22 AM CDT 10 mg dexAMETHasone injection 10 mg (Decadron) 10 mg, intravenous, Once, On Fri03/30/25 at 0945, For 1 dose, Give prior to PACLitaxel.Indications:Malign ant Neoplasm Of Lung Adenocarcinoma Right (HCC) Given 03/30/2025 9:37 AM CDT 10 mg famotidine injection 20 mg (Pepcid) 20 mg, intravenous, Once, On Fri03/30/25 at 0945, For 1 dose, Give prior to PACLitaxelIndications:Maligna nt Neoplasm Of Lung Adenocarcinoma Right (HCC) Given 03/30/2025 9:40 AM CDT 20 mg heparin flush 500 Units 500 Units, intra-catheter, As needed, line care, Starting on Fri03/30/25 at 0903, When IVAD accessed and not infusing: When no infusion to maintain patency flush every 7 days following NaCL flush. 5 mL (500 units) of Heparin 100 units/mL to each port/lumen. When IVAD not accessed or infusing: When no infusion to maintain patency flush every 28 days following NaCL flush. 5 mL (500 units) of Heparin 100 units/mL to each port/lumen.Indications:Malign ant Neoplasm Of Lung Adenocarcinoma Right (HCC),Malignant Neoplasm Of Rectum (HCC),Secondary Malignant Neoplasm Lymph Node Intrathoracic (HCC) Given 03/30/2025 11:33 AM CDT 500 Units ondansetron (PF) injection 8 mg (Zofran) 8 mg, intravenous, Once, On Fri03/30/25 at 0945, For 1 doseIndications:Malignant Neoplasm Of Lung Adenocarcinoma Right (HCC) Given 03/30/2025 9:43 AM CDT 8 mg PACLitaxeL 111 mg in NaCl 0.9% (non-PVC/non-DEHP) 293.5 mL IVPB (TaxoL) 111 mg (50 mg/m2 2.22 m2 Treatment Plan BSA from Measured weight), intravenous, at 294 mL/hr, Administer over 60 Minutes, Once, On Fri03/30/25 at 1015, For 1 dose, Administer via 0.2 or 0.22 micron filter.Indications:Malignant Neoplasm Of Lung Adenocarcinoma Right (HCC) New Bag 03/30/2025 9:46 AM CDT 111 mg 294 mL/hr sodium chloride 0.9 % injection 10-20 mL 10-20 mL, intra-catheter, As needed, line care, Starting on Fri03/30/25 at 0903, When IVAD accessed and not infusing: When no infusion to maintain patency flush every 7 days followed by heparin flush. 10 mL to each port/lumen. When IVAD not accessed or infusing: When no infusion to maintain patency flush every 28 days followed by heparin flush. 10 mL to each port/lumen.Indications:Malign ant Neoplasm Of Lung Adenocarcinoma Right (HCC),Malignant Neoplasm Of Rectum (HCC),Secondary Malignant Neoplasm Lymph Node Intrathoracic (HCC) Given 03/30/2025 11:33 AM CDT 10 mL documented in this encounter Additional Health Concerns Infection Onset Date Last Indicated Resolved Time Protective Environment 02/14/2025 02/14/202504/30 8:54 PM CDT Assessment Noted Time A fall risk assessment has been complete d for the patient 07/05/2024 4:06 PM CDT documented as of this encounter Care Teams [employer] Relationship Specialty Start Date End Date Kati Colin M.D. [address] [place] [address] [place] [phone] PCP - General Family Medicine 03/09/24 documented as of this encounter
--- OUTSIDE RECORDS SUMMARY | 2025-04-05 15:44 | XMS_ITS | Encounter Summary ---
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 4:50 PM CDT 04/05/2025 4:56 PM CDT Ernesto Fink M.D., M.H.P.E. LAB BLOOD ADD -ON Final Result Performing Organization Address [facility] Co de Phone Number [facility] [address] [place] [address] * (ABNORMAL) Troponin T, Baseline with 2 Hour/6 Hour Reflex Biomarker Panel (04/05/2025 4:50 PM CDT) Pathologist [facility] Troponin T, Baseline, 5th gen 27(H) <=10 ng/L 04/05/2025 5:25 PM CDT [facility] Blood (Blood, Venous) 04/05/2025 4:50 PM CDT 04/05/2025 4:56 PM CDT us Ernesto Fink M.D., M.H.P.E. LAB BLOOD TRO PONIN Final Result Performing Organization Address [facility] Co de Phone Number [facility] [address] [place] [address], [facility] [address] [place] [address] * (ABNORMAL) CBC with Differential, Blood (04/05/2025 4:50 PM CDT) Pathologist [facility] Hemoglobin 9.2(L) 11.6 - 15.0 g/dL 04/05/2025 4:59 PM CDT [facility] Hematocrit 29.1(L) 35.5 - 44.9 % 04/05/2025 4:59 PM CDT [facility] Erythrocytes 3.15(L) 3.92 - 5.13 x10(12)/L 04/05/2025 4:59 PM CDT [facility] MCV 92.4 78.2 - 97.9 fL 04/05/2025 4:59 PM CDT [facility] RBC Distrib Width 18.4(H) 12.2 - 16.1 % 04/05/2025 4:59 PM CDT [facility] Platelet Count 215 157 - 371 x10(9)/L 04/05/2025 4:59 PM CDT [facility] Leukocytes 4.2 3.4 - 9.6 x10(9)/L 04/05/2025 4:59 PM CDT [facility] Neutrophils 3.41 1.56 - 6.45 x10(9)/L 04/05/2025 4:59 PM CDT [facility] Lymphocytes 0.21(L) 0.95 - 3.07 x10(9)/L 04/05/2025 4:59 PM CDT [facility] Monocytes 0.53 0.26 - 0.81 x10(9)/L 04/05/2025 4:59 PM CDT [facility] Eosinophils <0.03 0.03 - 0.48 x10(9)/L 04/05/2025 4:59 PM CDT [facility] Basophils <0.03 0.01 - 0.08 x10(9)/L 04/05/2025 4:59 PM CDT [facility] Blood (Blood, Venous) 04/05/2025 4:50 PM CDT 04/05/2025 4:56 PM CDT Ernesto Fink M.D., M.H.P.E. LAB BLOOD ADD -ON Final Result [facility] [address] [place] [address], [place] STMA [facility] [address] [place] [address] [facility] [address] [place] [address] * (ABNORMAL) Glucose, POCT (04/05/2025 4:50 PM CDT) [facility] Glucose, POCT, B 226(H) 70 - 140 mg/dL 04/06/2025 6:53 AM CDT PCLX Site Venstick 04/06/2025 6:53 AM CDT PCLX Blood (Blood, Capillary) 04/05/2025 4:50 PM CDT 04/05/2025 4:50 PM CDT Ernesto Fink M.D., M.H.P.E. LAB POCT JOEY RAY-MANUAL Final Result POC [facility] [address] [place] [address], [facility] PCLX [facility] POC [address] [place] [address] * (ABNORMAL) Basic Metabolic Panel (04/05/2025 4:50 PM CDT) Potassium, P 4.5 3.6 - 5.2 mmol/L 04/05/2025 5:15 PM CDT [facility] Sodium, P 141 135 - 145 mmol/L 04/05/2025 5:15 PM CDT [facility] Chloride, P 102 98 - 107 mmol/L 04/05/2025 5:15 PM CDT [facility] Bicarbonate, P 28 22 - 29 mmol/L 04/05/2025 5:15 PM CDT [facility] Anion Gap, P 11 7 - 15 04/05/2025 5:15 PM CDT [facility] BUN (Blood Urea Nitrogen), P 17 6 - 21 mg/dL 04/05/2025 5:15 PM CDT [facility] Creatinine 0.98 0.59 - 1.04 mg/dL 04/05/2025 5:15 PM CDT [facility] Estimated GFR (eGFR) 63 >=60 mL/min/BSA 04/05/2025 5:15 PM CDT [facility] Comment: Estimated GFR calculated using the 2020 CKD_EPI creatinine equation. Calcium, Total, P 8.6(L) 8.8 - 10.2 mg/dL 04/05/2025 5:15 PM CDT [facility] Glucose, P 220(H) 70 - 140 mg/dL 04/05/2025 5:15 PM CDT [facility] Blood (Blood, Venous) 04/05/2025 4:50 PM CDT 04/05/2025 4:56 PM CDT Ernesto Fink M.D., M.H.P.E. LAB BLOOD ADD -ON Final Result [facility] [address] [place] [address], [facility] [address] [place] [address] * DX Chest AP or PA and Lateral 2 Views (04/05/2025 4:30 PM CDT) Anatomical Region Laterality Modality Chest, Thoracic RST LOS, Tho racic ARZ LOS, Thoracic FLA LOS N/A Digital Radiography Impressions 04/05/2025 4:45 PM CDT Since 03/20/2025, increased pulmonary vascular congestion. Bilateral lower lung scattered atelectasis. Stable right perihilar opacity and nodular opacity in the right upper lobe. Right IJ Port-A-Cath with tip in the low SVC. ASD closure device. Thoracic spine degenerative changes. Narrative 04/05/2025 4:45 PM CDT EXAM: DX CHEST AP OR PA AND LATERAL 2 VIEWS Procedure Note Tricia Posadas M.D. - 04/05/2025 EXAM: DX CHEST AP OR PA AND LATERAL 2 VIEWS IMPRESSION: Since 03/20/2025, increased pulmonary vascular congestion. Bilateral lowerlung scattered atelectasis. Stable right perihilar opacity and nodularopacity in the right upper lobe. Right IJ Port-A-Cath with tip in the lowSVC. ASD closure device. Thoracic spine degenerative changes. Ernesto Fink M.D., M.H.P.E. IMG DIAGNOSTI C IMAGING PROCEDURES Final Result * ECG 12 Lead (04/05/2025 3:52 PM CDT) Ventricular Rate ECG/Min 92 BPM MUSE ME Interval 154 ms MUSE QRSD Interval 68 ms MUSE QT Interval 370 ms MUSE QTC Interval 457 ms MUSE P [place] 58 degrees MUSE R [place] 41 degrees MUSE T Wave [place] 61 degrees MUSE 04/05/2025 3:52 PM CDT 04/05/2025 4:00 PM CDT Impressions MUSE - 04/05/2025 4:00 PM CDT Normal sinus rhythm Low voltage QRS When compared with ECG of 20-Mar-2025 15:59, Premature atrial complexes are no longer present Reviewed by NIC Galicia Narrative Procedure Note Johnson Dodge M.D. - 04/05/2025 IMPRESSION: Normal sinus rhythm Low voltage QRS When compared with ECG of 20-Mar-2025 15:59, Premature atrial complexes are no longer present Reviewed by NIC Galicia Ernesto Fink M.D., M.H.P.E. ECG ORDERABLE S Final Result MUSE NA documented in this encounter Visit Diagnoses Diagnosis Chronic Obstructive Pulmonary Disease Exacerbation (HCC)- Primary documented in this encounter Administered Medications Inactive Administered Medications - up to 3 most recent administrations Medication Order MAR Action Action Date Dose Rate Site heparin flush 500-1,000 Units 500-1,000 Units, intra-catheter, During hospitalization, line care, Prior to discharge, Starting on Fri04/05/25 at 2236, For 1 dose, Implanted Vascular Access Device (IVAD) Venous Non-Valved: flush 5 mL (500 units) per port/lumen following saline flush prior to discharge. Given 04/05/2025 10:39 PM CDT 500 Units iopromide 370 mg iodine/mL injection 1-162 mL (Ultravist) 1-162 mL, intravenous, Once in imaging, contrast, Starting on Fri04/05/25 at 2118, For 1 dose, Imaging Protocol Orders, Dose per [place] Medication Guidelines Given 04/05/2025 9:23 PM CDT 100 mL ipratropium-albuteroL 0.5-2.5 mg/3 mL nebulizer solution 3 mL (DuoNeb) 3 mL, nebulization, Once as needed, wheezing, Starting on Fri04/05/25 at 1552, For 1 dose Given 04/05/2025 3:58 PM CDT 3 mL ipratropium-albuteroL 0.5-2.5 mg/3 mL nebulizer solution 3 mL (DuoNeb) 3 mL, nebulization, Once, On Fri04/05/25 at 2055, For 1 dose Given 04/05/2025 8:58 PM CDT 3 mL NaCl 0.9 % bolus 1,000 mL 1,000 mL, intravenous, at 1,000 mL/hr, Administer over 1 Hours, Once as needed, low blood pressure, systolic blood pressure less than 90 mmHg, Starting on Fri04/05/25 at 1551, For 1 dose sodium chloride (PF) 0.9 % injection 1-100 mL 1-100 mL, intravenous, Once, On Fri04/05/25 at 2119, For 1 dose, Imaging Protocol Orders, Dose per [facility] Medication Guidelines Given 04/05/2025 9:23 PM CDT 30 mL sodium chloride 0.9 % injection 10 mL 10 mL, intravenous, As needed, line care, Starting on Fri04/05/25 at 1551, Peripheral Intravenous Catheter and Rapid Infusion Catheter, prior to blood sampling, post blood transfusion or post blood sampling sodium chloride 0.9 % injection 10-20 mL 10-20 mL, intravenous, During hospitalization, line care, Prior to discharge, Starting on Fri04/05/25 at 2236, For 1 dose, Implanted Vascular Access Device (IVAD) Venous Non-Valved: Flush 10 mL per port/lumen followed by heparin flush prior to discharge. sodium chloride 0.9 % injection 3 mL 3 mL, intravenous, As needed, line care, Starting on Fri04/05/25 at 1551, Prior to and following infusion and between multiple consecutive infusions: sodium chloride 0.9 % injection sodium chloride 0.9 % injection 3 mL 3 mL, intravenous, Every 12 hours scheduled, First dose on Fri04/05/25 at 2100, Peripheral Intravenous Catheter and Rapid Infusion Catheter, when no infusion to maintain patency documented in this encounter Active and Recently Administered Medications Times are shown in CDT. Scheduled Medication Order 04/03/2025 04/04/2025 04/05/2025 ipratropium-albuteroL 0.5-2.5 mg/3 mL nebulizer solution 3 mL (DuoNeb) (COMPLETED) 3 mL, nebulization, Once, On Fri04/05/25 at 2054, For 1 dose 2057 (Given - Provid er: Holly Abdi, R.R.T., L.R.T.) sodium chloride (PF) 0.9 % injection 1-100 mL (COMPLETED) 1-100 mL, intravenous, Once, On Fri04/05/25 at 2118, For 1 dose, Imaging Protocol Orders, Dose per [facility] Medication Guidelines 2122 (Given - Provid er: Alka Gómez, R.N.) sodium chloride 0.9 % injection 3 mL 3 mL, intravenous, Every 12 hours scheduled, First dose on Fri04/05/25 at 2099, Peripheral Intravenous Catheter and Rapid Infusion Catheter, when no infusion to maintain patency 2045 (Not Given - Pr ovider: Luda Ashraf R.N. - Reason: Other) PRN Medication Order 04/03/2025 04/04/2025 04/05/2025 heparin flush 500-1,000 Units (COMPLETED) 500-1,000 Units, intra-catheter, During hospitalization, line care, Prior to discharge, Starting on Fri04/05/25 at 2235, For 1 dose, Implanted Vascular Access Device (IVAD) Venous Non-Valved: flush 5 mL (500 units) per port/lumen following saline flush prior to discharge. 2238 (Given - Provid er: Luda Ashraf R.N.) iopromide 370 mg iodine/mL injection 1-162 mL (Ultravist) (COMPLETED) 1-162 mL, intravenous, Once in imaging, contrast, Starting on Fri04/05/25 at 211, For 1 dose, Imaging Protocol Orders, Dose per [facility] Medication Guidelines 2122 (Given - Provid er: Alka Gómez R.N.) ipratropium-albuteroL 0.5-2.5 mg/3 mL nebulizer solution 3 mL (DuoNeb) (COMPLETED) 3 mL, nebulization, Once as needed, wheezing, Starting on Fri04/05/25 at 1552, For 1 dose 1558 (Given - Provid er: Primitivo Rosado, R.R.T., L.R.T.) NaCl 0.9 % bolus 1,000 mL 1,000 mL, intravenous, at 1,000 mL/hr, Administer over 1 Hours, Once as needed, low blood pressure, systolic blood pressure less than 90 mmHg, Starting on Fri04/05/25 at 1551, For 1 dose sodium chloride 0.9 % injection 10 mL 10 mL, intravenous, As needed, line care, Starting on Fri04/05/25 at 1551, Peripheral Intravenous Catheter and Rapid Infusion Catheter, prior to blood sampling, post blood transfusion or post blood sampling sodium chloride 0.9 % injection 10-20 mL 10-20 mL, intravenous, During hospitalization, line care, Prior to discharge, Starting on Fri04/05/25 at 2236, For 1 dose, Implanted Vascular Access Device (IVAD) Venous Non-Valved: Flush 10 mL per port/lumen followed by heparin flush prior to discharge. sodium chloride 0.9 % injection 3 mL 3 mL, intravenous, As needed, line care, Starting on Fri04/05/25 at 1551, Prior to and following infusion and between multiple consecutive infusions: sodium chloride 0.9 % injection documented in this encounter Additional Health Concerns Infection Onset Date Last Indicated Resolved Time Protective Environment 02/14/2025 02/14/202504/30 8:54 PM CDT Assessment Noted Time A fall risk assessment has been complete d for the patient 07/05/2024 4:06 PM CDT documented as of this encounter Care Teams Pattern Chain Maker Supervisor Relationship Specialty Start Date End Date Kati Colin M.D. [address] [place] [phone] PCP - General Family Medicine 03/09/24 documented as of this encounter
--- OUTSIDE RECORDS SUMMARY | 2025-04-06 10:30 | XMS_ITS | Encounter Summary ---
Author Organization [facility] Address [address] [place] [address] Care Team Providers Care Capacitor Assembler Name Role Phone Kati Colin M.D. Primary Care Provider [phone] Reason for Referral * Outpatient (Routine) - Closed Specialty Diagnoses / Procedures Referred By Phani t Referred To Contact Family Medicine Diagnoses Chronic Obstructive Pulmonary Disease Without Exacerbation (HCC) Halima Osorio APRN, C.N.P., D.N.P. [address] [place] [phone] Phone: tel: fax: [facility] Referral ID Status Reason Start Date Expiration Date Visits Re quested Visits Authorized [id number] Closed 04/06/2025 10/06/2026 1 1 Scheduling Instructions Follow up regarding COPD exacerbation. Reason for Visit * Reason Comments Post Ed Visit Follow-up In emergency timmy [facility] on 04/05/25 at [place]. Shortness of breath, fatigue, weakness. Feet and ankle swelling. Intermittent headaches. * Appointment Request (Routine) - Closed Specialty Diagnoses / Procedures Referred By Phani cruz Referred To Contact Family Medicine Referral ID Status Reason Start Date Expiration Date Visits Re quested Visits Authorized [id number] Closed 04/05/2025 07/06/2026 1 1 Encounter Details Date Type Department Care Team (Late st Contact Info) Description 04/06/2025 10:30 AM CDT Office Visit Department of Family Medicine, [facility], in [place], [place] [address] [place] [phone] Halima Osorio APRN, C.N.P., D.N.P. [address] [place] [address] Chronic Obstructive Pulmonary Disease Without Exacerbation (HCC) (Primary Dx); Follow Up Exam Social History Tobacco Use Types Packs/Day Years Used Date Smoking Tobacco: Former Cigarettes 0.8 94.4 0 09/29/1969 - 08/23/2018 Smokeless Tobacco: Never Tobacco Cessation:Counseling Given: Not Answered Comments:Quit smoking several times for several months Alcohol Use Standard Drinks/Week Comments Yes 1 (1 standard drink = 0.6 oz pur e alcohol) [facility] Utilities Answer Date Recorded In the past 12 months has e [employer], gas, oil, or water [employer] threatened to shut off services in your [...] your living situation today? 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 - 04/06/2025 10:30 AM CDT DATE OF VISIT: 04/06/2025 SUBJECTIVE CHIEF COMPLAINT / REASON FOR VISIT Luz Richardson is a 69 y.o. female who presents for evaluation of Post Ed Visit Follow-up (In emergency room on 04/05/25 at [place]. Shortness of breath, fatigue, weakness. Feet and ankle swelling.Intermittent headaches.). The patient verbally consented to an audio recording of their visit to assist with the completion of documentation. History of Present Illness Ms. 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 She states she was prescribed antibiotic and prednisone sent to a pharmacy in [place] however she would prefer for medication to be sent to local pharmacy. Her last chemotherapy session was a week ago, and she has felt unwell since then. She is currently on two liters of oxygen with a saturation of 93%. She wears BiPAP at night. She reports her lower extremities have gotten more swollen over the past couple of days. She states her blood pressure was low in the emergency department yesterday 90s over 60s. She has been afebrile, no chills, headache, no wheezing. In the emergency room, she was informed that she would be prescribed antibiotics and steroids, but these have not yet been received at her pharmacy. She was given a DuoNeb treatment in the ER. At home, she uses a nebulizer and takes albuterol regularly. She also takes Lasix 20 mg daily, which was previously prescribed for Friday, Friday, and Friday, but has been adjusted to daily use. Her recent diagnostic workup in the ER included a chest x-ray, ultrasound, and CT scan. The imagingdid not show pneumonia, but did note a right lung mass effect. She has a history of chronic respiratory failure with hypoxia and COPD. She reports a loss of taste, which she attributes to chemotherapy, and has been experiencing fatigue and sleepiness she is unsure if related to chemotherapy. She has a history of macular degeneration, which has been stable but has worsened in the last few weeks, possibly due to chemotherapy. OBJECTIVE VITAL SIGNS BP 104/65 (BP Location: Right arm) Pulse 86 Temp (!) 35.9 ??C (Temporal) SpO2 93% Physical Exam Constitutional Appearance: Normal appearance. Cardiovascular Rate and Rhythm: Normal rate and regular rhythm. Heart sounds: Normal heart sounds, S1 normal and S2 normal. Pulmonary Effort: Pulmonary effort is normal. Breath sounds: Examination of the right-lower field reveals decreased breath sounds. Examination ofthe left-lower field reveals decreased breath sounds. Decreased breath sounds present. Neurological General: No focal deficit present. Mental Status: She is alert and oriented to person, place, and time. Psychiatric Mood and Affect: Mood normal. Behavior: Behavior normal. ASSESSMENT/ PLAN Chronic Obstructive Pulmonary Disease Without Exacerbation (HCC) Follow Up Exam Patient presents for follow-up status post ED visit yesterday where she was diagnose with a COPD exacerbation. Patient's daughter is present with her a does not believe this to truly be the case. Patient and daughter concerned about her increase drowsiness. She is on home oxygen and currently stable-no need for increased oxygen- currently 93% on 2 L. Upon physical examination there is no jugular vein distention, lung sounds are decreased in the bases. Treated for pneumonia a few weeks ago. Chest CT and x-ray in ED negative. ECG-normal sinus rhythm. Recheck of her blood pressure 104/65. Discussed increased fatigue, appetite change likely due to recent chemotherapy and underlying lung pathology. - Recommend nebulizers at home and inhalers as prescribed. Medrol Dosepak and azithromycin sent to pharmacy. - Advise to monitor blood sugar levels due to prednisone use. - Instruct to seek immediate care if experiencing chest pain, shortness of breath, or other red flag symptoms. - Schedule follow-up appointment in one week to assess resolution of exacerbation. - Continue Lasix 20 mg daily. Macular Degeneration Reports worsening vision over the past two to three weeks, possibly related to chemotherapy. - Schedule an eye exam to assess changes in vision. General Health Maintenance Advised to maintain hydration and nutritional intake, especially during chemotherapy treatment. - Encourage hydration and nutritional intake. Orders: azithromycin (Zithromax Z-Jerson) 250 mg tablet; 2 tablets (500 mg) once and then 1 tablet Daily for 4days methylPREDNISolone (MedroL DosePak) 4 mg tablet; Follow package directions. Family Medicine office visit (clinic); Future All questions answered and patient and daughter voiced understanding and agreed with the plan. documented in this encounter Miscellaneous Notes * Assessment & Plan Note - Halima Osorio APRN, C.N.P., D.N.P. - 04/06/2025 10:30 AM CDTAssociated Problem(s): Chronic Obstructive Pulmonary Disease Without Exacerbation (HCC) Patient presents for follow-up status post ED visit yesterday where she was diagnose with a COPD exacerbation. Patient's daughter is present with her a does not believe this to truly be the case. Patient and daughter concerned about her increase drowsiness. She is on home oxygen and currently stable-no need for increased oxygen- currently 93% on 2 L. Upon physical examination there is no jugular vein distention, lung sounds are decreased in the bases. Treated for pneumonia a few weeks ago. Chest CT and x-ray in ED negative. ECG-normal sinus rhythm. Recheck of her blood pressure 104/65. Discussed increased fatigue, appetite change likely due to recent chemotherapy and underlying lung pathology. - Recommend nebulizers at home and inhalers as prescribed. Medrol Dosepak and azithromycin sent to pharmacy. - Advise to monitor blood sugar levels due to prednisone use. - Instruct to seek immediate care if experiencing chest pain, shortness of breath, or other red flag symptoms. - Schedule follow-up appointment in one week to assess resolution of exacerbation. - Continue Lasix 20 mg daily. Macular Degeneration Reports worsening vision over the past two to three weeks, possibly related to chemotherapy. - Schedule an eye exam to assess changes in vision. General Health Maintenance Advised to maintain hydration and nutritional intake, especially during chemotherapy treatment. - Encourage hydration and nutritional intake. Orders: azithromycin (Zithromax Z-Jerson) 250 mg tablet; 2 tablets (500 mg) once and then 1 tablet Daily for 4days methylPREDNISolone (MedroL DosePak) 4 mg tablet; Follow package directions. Family Medicine office visit (clinic); Future documented in this encounter Plan of Treatment Upcoming Encounters Date Type Department Care Team (Latest Contact Info) Description 05/04/2025 8:45 AM CDT Clinical Communication Virtual Review in [place], [place] [address] [place] [address] 05/04/2025 2:00 PM CDT Telemedicine Department of Oncology in [place], [place] [address], [place] [phone] Antoine Phillip M.D. [address] [place] [phone] 05/05/2025 3:20 PM CDT Telemedicine Department of Oncology in [place], [place] [address] [place] [phone] Lexi Phillip APRN C.N.P., D.N.P. [address] [place] [phone] 05/06/2025 1:10 PM CDT Comprehensive Visit Division of Gastroenterology in [place], [place] [address] [place] [address] Kati Colin M.D. [address] [place] [phone] 05/12/2025 2:00 PM CDT Comprehensive Visit Center for Sleep Medicine in [place], [place] [address] [place] [address] Phil Dorman D.O., M.S. [address] [place] [phone] 08/09/2025 1:30 PM LARRY OPERATOR Office Visit Department of Sleep Medicine in [place], [place] [address] [place] [phone] Sallie White APRN, C.N.P., D.N.P., M.S.N. [address] [phone] Scheduled Procedures Name Priority Associated Diagnoses Date/Ti me BRONCHOSCOPY FLEXIBLE Chronic Obstructive Pulmonary Disease Without Exacerbation (HCC) Abnormal Computed Tomography Chest Chronic Cough 05/03/2025 12:47 PM CDT Scheduled Referrals Name Type Priority Associated Diagnoses Orde r Schedule Family Medicine office visit (clinic) Outpatient Referral Routine Chronic Obstructive Pulmonary Disease Without Exacerbation (HCC) Expected: 04/13/2025, Expires: 07/07/2026 documented as of this encounter Visit Diagnoses Diagnosis Chronic Obstructive Pulmonary Disease Without Exacerbation (HCC)- Primary Follow Up Exam documented in this encounter Additional Health Concerns Infection Onset Date Last Indicated Resolved Time Protective Environment 02/14/2025 02/14/202504/30 8:54 PM CDT Assessment Noted Time A fall risk assessment has been complete d for the patient 07/05/2024 4:06 PM CDT documented as of this encounter Care Teams Capacitor Assembler Relationship Specialty Start Date End Date Kati Colin M.D. [address] [place] [phone] PCP - General Family Medicine 03/09/24 documented as of this encounter
--- OUTSIDE RECORDS SUMMARY | 2025-04-07 10:15 | XMS_ITS | Encounter Summary ---
Author Organization [facility] Address [address] [place] [address] Care Team Providers Care Nuclear Control Room Operator Name Role Phone Kati Colin M.D. Primary Care Provider Reason for Referral * Outpatient (Routine) - Authorized Specialty Diagnoses / Procedures Referred By Phani cruz Referred To Contact Ophthalmology Tod Lubin Jr., M.D. [address], [place] [address] Phone: tel: fax: [facility] Referral ID Status Reason Start Date Expiration Date V isits Requested Visits Authorized [id number] Authorized 04/07/2025 10/07/2026 1 1 * Outpatient (Routine) - Authorized Specialty Diagnoses / Procedures Referred By Phani cruz Referred To Contact Ophthalmology Diagnoses Nonexudative Age-Related Macular Degeneration Unspecified Stage Bilateral Tod Lubin Jr., M.D. [address] [place] [address] Phone: tel: fax: [facility] Region Referral ID Status Reason Start Date Expiration Date V isits Requested Visits Authorized [id number] Authorized 04/07/2025 10/07/2026 1 1 Reason for Visit * Reason Comments Blurred Vision * Appointment Request (Routine) - Closed Specialty Diagnoses / Procedures Referred By Contac t Referred To Contact Ophthalmology Referral ID Status Reason Start Date Expiration Date Visits Re quested Visits Authorized [id number] Closed 04/06/2025 07/07/2026 1 1 Encounter Details Date Type Department Care Team (Latest Contact Info) Description 04/07/2025 10:15 AM CDT Comprehensive Visit Department of Ophthalmology in [place], [place] [address] [phone] Tod Lubin Jr., M.D. [address] [place] [phone] Nonexudative Age-Related Macular Degeneration Unspecified Stage Bilateral (Primary Dx); Intraocular Lens Implant Status Post Social History Tobacco Use Types Packs/Day Years Used Date Smoking Tobacco: Former Cigarettes 0.8 94.4 0 09/29/1969 - 08/23/2018 Smokeless Tobacco: Never Comments:Quit smoking severa l times for several months Alcohol Use Standard Drinks/Week Comments Yes 1 (1 standard drink = 0.6 oz pur e alcohol) [facility] Utilities Answer Date Recorded In the past 12 months has [employer], gas, oil, or water [employer] threatened to shut off services in your [...] AM CDT Legal 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 - 04/07/2025 10:15 AM CDT Luz Richardson was seen today for Blurred Vision #1 Nonexudative Age-Related Macular Degeneration Unspecified Stage Bilateral #2 Intraocular Lens Implant Status Post #1 Progression of macular degeneration ou to geographic atrophy ou, cause of decrease vision. #2 Stable New glasses, consider changing left lens only. RTO 6 months, OCT macula documented in this encounter Plan of Treatment Upcoming Encounters Date Type Department Care Team (Latest Contact Info) Description 05/04/2025 8:45 AM CDT Clinical Communication Virtual Review in [address] [phone] 05/04/2025 2:00 PM CDT Telemedicine Department of Oncology in [place], [place] [address] [place] [phone] Antoine Phillip M.D. [address] [place] [phone] 05/05/2025 3:20 PM CDT Telemedicine Department of Oncology in [place], [place] [address] [place] [phone] Lexi Phillip APRN, C.N.P., D.N.P. [address] [place] [phone] 05/06/2025 1:10 PM CDT Comprehensive Visit Division of Gastroenterology in [place], [place] [address] [place] [phone] Kati Colin M.D. [address] [place] [phone] 05/12/2025 2:00 PM CDT Comprehensive Visit Center for Sleep Medicine in [place], [place] [address] [place] [phone] Phil Dorman D.O., M.S. [address] [place] [phone] 08/09/2025 1:30 PM KNITTING INSPECTOR Office Visit Department of Sleep Medicine in [place], [place] [address] [place] [phone] Sallie White APRN, C.N.P., D.N.P., M.S.N. [address] [place] [phone] Scheduled Orders Name Type Priority Associated Diagnoses Orde r Schedule Optical Coherence Tomography - Macula/Retina - OU - Both Eyes Ophthalmology Routine Nonexudative Age-Related Macular Degeneration Unspecified Stage Bilateral Expected: 04/07/2025, Expires: 07/08/2026 Optical Coherence Tomography - Macula/Retina - OU - Both Eyes Ophthalmology Routine Nonexudative Age-Related Macular Degeneration Unspecified Stage Bilateral Expected: 10/08/2025, Expires: 07/08/2026 Scheduled Procedures Name Priority Associated Diagnoses Date/Ti me BRONCHOSCOPY FLEXIBLE Chronic Obstructive Pulmonary Disease Without Exacerbation (HCC) Abnormal Computed Tomography Chest Chronic Cough 05/03/2025 12:47 PM CDT Scheduled Referrals Name Type Priority Associated Diagnoses Orde r Schedule Ophthalmology - Low vision consult (clinic) Outpatient Referral Routine Nonexudative Age-Related Macular Degeneration Unspecified Stage Bilateral Expected: 04/07/2025, Expires: 07/08/2026 Ophthalmology office visit (clinic): Self; General Outpatient Referral Routine Expected: 10/08/2025, Expires: 07/08/2026 documented as of this encounter Procedures Procedure Name Priority Date/Time Associated Diagnosis Comments OPTICAL COHERENCE TOMOGRAPHY - MACULA/RETINA - OU - BOTH EYES Routine 04/07/2025 10:41 AM CDT Nonexudative Age-Related Macular Degeneration Unspecified Stage Bilateral documented in this encounter Results * Optical Coherence Tomography - Macula/Retina - OU - Both Eyes (04/07/2025 10:41 AM CDT) Narrative OPHTHALMOLOGY IMAGING EXAM - 04/07/2025 11:40 AM CDT Right Eye It was a technically difficult scan. OCT device used was Spectralis . Left Eye It was a technically difficult scan. OCT device used was Spectralis . Notes Borderline photos- poor positioning in wheelchair. Difficulty fixating both eyes. Loss of photoreceptors ou and geographic atrophy ou. NO edema. Tod Lubin Jr., M.D. OPHTH TOMOGRAPHY Final Result OPHTHALMOLOGY IMAGING EXAM documented in this encounter Visit Diagnoses Diagnosis Nonexudative Age-Related Macular Degeneration Unspecified Stage Bilateral- Primary Intraocular Lens Implant Status Post documented in this encounter Additional Health Concerns Infection Onset Date Last Indicated Resolved Time Protective Environment 02/14/2025 02/14/202504/30 8:54 PM CDT Assessment Noted Time A fall risk assessment has been complete d for the patient 07/05/2024 4:06 PM CDT documented as of this encounter Care Teams Nuclear Control Room Operator Relationship Specialty Start Date End Date Kati Cloin M.D. [address] [place] [phone] PCP - General Family Medicine 03/09/24 documented as of this encounter
--- OUTSIDE RECORDS SUMMARY | 2025-04-07 10:15 | XMS_ITS | Encounter Summary ---
Author Organization [facility] Address [address] [place] [address] Care Team Providers Care Co Teacher Name Role Phone Kati Colin M.D. Primary Care Provider Encounter Details Date Type Department Care Team (Late st Contact Info) Description 04/07/2025 10:15 AM CDT Silent Schedule Department of Ophthalmology in [place], [place] [address] [place] [phone] Tod Lubin Jr., M.D. [address] [place] [phone] Social History Tobacco Use Types Packs/Day Years Used Date Smoking Tobacco: Former Cigarettes 0.8 94.4 0 09/29/1969 - 08/23/2018 Smokeless Tobacco: Never Comments:Quit smoking severa l times for several months Alcohol Use Standard Drinks/Week Comments Yes 1 (1 standard drink = 0.6 oz pur e alcohol) [facility] Utilities Answer Date Recorded [...] your living situation today? 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 [address] [place] [phone] 05/05/2025 3:20 PM CDT Telemedicine Department of Oncology in [place], [place] [address] [place] [phone] Lexi Phillip APRN, C.N.PGuille, D.N.P. [address] [place] [phone] 05/06/2025 1:10 PM CDT Comprehensive Visit Division of Gastroenterology in [place], [place] [address] [place] [phone] Kati Colin M.D. [address] [place] [phone] 05/12/2025 2:00 PM CDT Comprehensive Visit Center for Sleep Medicine in [place], [place] [address] [place] [phone] Phil Dorman D.O., M.S. [address] [place] [phone] 08/09/2025 1:30 PM INFORMATION SECURITY Office Visit Department of Sleep Medicine in [place], [place] [address] [place] [phone] Sallie White APRN, C.N.P., D.N.P., M.S.N. [address] [phone] Scheduled Procedures Name Priority Associated Diagnoses Date/Ti [...] EXAM documented in this encounter Visit Diagnoses Not on filedocumented in this encounter Additional Health Concerns Infection Onset Date Last Indicated Resolved Time Protective Environment 02/14/2025 02/14/202504/30 8:54 PM CDT Assessment Noted Time A fall risk assessment has been complete d for the patient 07/05/2024 4:06 PM CDT documented as of this encounter Care Teams Co Teacher Relationship Specialty Start Date End Date Kati Colin M.D. [address] [place] [phone] PCP - General Family Medicine 03/09/24 documented as of this encounter
--- OUTSIDE RECORDS SUMMARY | 2025-04-11 11:43 | XMS_ITS | Encounter Summary ---
Author Organization [facility] Address [address] [place] [address] Care Team Providers Care Cut Off Saw Operator Pipe Blanks Name Role Phone Kati Colin M.D. Primary Care Provider Reason for Visit * Reason Comments Asthma Encounter Details Date Type Department Care Team (Late st Contact Info) Description 04/11/2025 11:43 AM CDT - 04/11/2025 11:59 PM CDT Emergency [facility] [address] [place] [phone] Asthma (HCC) (Primary Dx) Discharge Disposition: Home or Self Care Social History Tobacco Use Types Packs/Day Years Used Date Smoking Tobacco: Former Cigarettes 0.8 94.4 0 09/29/1969 - 08/23/2018 Smokeless Tobacco: Never Comments:Quit smoking severa l times for several months Alcohol Use Standard Drinks/Week Comments Yes 1 (1 standard drink = 0.6 oz pur e alcohol) [facility] Utilities Answer Date Recorded In [...] your [facility] situation today? 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 90 tablet 3 5 vitamins A,C,T-gcjk-nstnhs (PreserVision AREDS) 7,160 Units-113 mg-100 Units per tablet Take 1 tablet by mouth 2 (two) times a day. predniSONE (Deltasone) 20 mg tablet Take 40 mg by mouth. 5 04/15/20 25 azithromycin (Zithromax Z-Jerson) 250 mg tabletIndications:C hronic Obstructive Pulmonary Disease Without Exacerbation (HCC) 2 tablets (500 mg) once and then 1 tablet Daily for 4 days 6 tablet 5 04/12/20 25 azithromycin (Zithromax) 500 mg tablet 500 mg daily on M, W, F 36 tablet 3 4 04/12/20 25 furosemide (Lasix) 20 mg tablet Take 1 tablet (20 mg total) by mouth daily. M, W, F 90 tablet 3 4 04/22/20 25 levoFLOXacin (Levaquin) 750 mg tablet Take 750 mg by mouth. 5 04/12/20 25 methylPREDNISolone (MedroL DosePak) 4 mg tabletIndications:C hronic Obstructive Pulmonary Disease Without Exacerbation (HCC) Follow package directions. 21 tablet 5 04/27/20 25 predniSONE (Deltasone) 5 mg tabletIndications:A everardo With Chronic Obstructive Pulmonary Disease (HCC) Take 1 tablet (5 mg total) by mouth daily. 30 tablet 11 5 04/22/20 25 documented as of this encounter Plan of Treatment Upcoming Encounters Date Type Department Care Team (Latest Contact Info) Description 05/04/2025 8:45 AM CDT Clinical Communication Virtual Review in [place], [place] [address] [place] [phone] 05/04/2025 2:00 PM CDT Telemedicine Department of Oncology in [place], [place] [address] [place] [phone] Antoine Phillip M.D. [address] [place] [phone] 05/05/2025 3:20 PM CDT Telemedicine Department of Oncology in [place], [place] [address] [place] [phone] Lexi Phillip APRN, C.N.P., D.N.P. [address] [place] [phone] 05/06/2025 1:10 PM CDT Comprehensive Visit Division of Gastroenterology in [place], [place] [address] [place] [address] Kati Colin M.D. [address] [place] [phone] 05/12/2025 2:00 PM CDT Comprehensive Visit [facility] in [place], [place] [address] [place] [address] Phil Dorman D.O., M.S. [address] [place] [phone] 08/09/2025 1:30 PM IMPREGNATING MACHINE OPERATOR Office Visit Department of Sleep Medicine in [place], [place] [address] [place] [phone] Sallie White APRN, C.N.P., D.N.P., M.S.N. [address] [phone] Scheduled Procedures Name Priority Associated Diagnoses Date/Ti me BRONCHOSCOPY FLEXIBLE Chronic Obstructive Pulmonary Disease Without Exacerbation (HCC) Abnormal Computed Tomography Chest Chronic Cough 05/03/2025 12:47 PM CDT documented as of this encounter Procedures Procedure Name Priority Date/Time Associated Diagnosis Comments CT CHEST ANGIOGRAM AND PULMONARY ARTERIES WITH IV CONTRAST RAD - Semiurgent (Fast; most ED patients; some inpatients) 04/11/2025 2:06 PM CDT documented in this encounter Results * CT Chest Angiogram and Pulmonary Arteries with IV Contrast (04/11/2025 2:06 PM CDT) Anatomical Region Laterality Modality Chest, Cardiovascular RST LO S, Thoracic ARZ LOS, Thoracic FLA LOS N/A Computed Tomography 04/11/2025 2:07 PM CDT Impressions 04/11/2025 2:40 PM CDT No acute or chronic pulmonary embolism. No significant interval change from 04/05/2025 CTA chest feuding the spiculated mass right upper lobe, right middle lobe collapse, and mediastinal/hilar adenopathy. Narrative 04/11/2025 2:40 PM CDT EXAM: CT CHEST ANGIOGRAM AND PULMONARY ARTERIES WITH IV CONTRAST Including 3D image postprocessing with or without AI assistance. COMPARISON: 04/05/2025 FINDINGS: Pulmonary Arteries: Satisfactory quality study. Pulmonary embolism: No endoluminal filling defects in the opacified pulmonary arteries. Other cardiovascular: Coronary calcifications are present. No significant pericardial effusion. Lungs and Airways: There is mass effect on the right middle lobe rhonchi. Similarly, mass effect on the proximal bronchi of the right upper lobe. The central airways are otherwise patent. There is collapse of the right middle lobe, similar to 04/05/2025. There are post surgical changes in the right upper lobe. There is a spiculated mass with irregular margins in the right upper lobe measuring up to 4.5 cm on series 6 image 117 without significant interval change from 04/05/2025 and remains suspicious for local neoplastic recurrence. 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 There is subsegmental atelectasis in the left lower lobe. There is no significant pleural effusion. Pleural Space: No pleural fluid or thickening. Mediastinum and Cleo: Stable prominent subcarinal and right hilar lymph nodes there is a small hiatal hernia. Osseous Structures and Chest Wall: No aggressive bone lesions. Medical Devices: There is a right chest wall Port-A-Cath. Upper Abdomen: Visualized upper abdominal structures are within normal limits. Procedure Note Wilton Sexton M.D. - 04/11/2025 EXAM: CT CHEST ANGIOGRAM AND PULMONARY ARTERIES WITH IV CONTRAST Including 3D image postprocessing with or without AI assistance. COMPARISON: 04/05/2025 FINDINGS: Pulmonary Arteries: Satisfactory quality study. Pulmonary embolism: No endoluminal filling defects in the opacifiedpulmonary arteries. Other cardiovascular: Coronary calcifications are present. No significantpericardial effusion. Lungs and Airways: There is mass effect on the right middle lobe rhonchi. Similarly, masseffect on the proximal bronchi of the right upper lobe. The centralairways are otherwise patent. There is collapse of the right middle lobe, similar to 04/05/2025. There are post surgical changes in the right upper lobe. There is a spiculated mass with irregular margins in the right upper lobemeasuring up to 4.5 cm on series 6 image 117 without significant intervalchange from 04/05/2025 and remains suspicious for local neoplasticrecurrence. No significant interval change in a partially calcified lobulated solidnodule in the right upper lobe previously shown to represent a hamartoma.There is subsegmental atelectasis in the left lower lobe. There is nosignificant pleural effusion. Pleural Space: No pleural fluid or thickening. Mediastinum and Cleo: Stable prominent subcarinal and right hilar lymphnodes there is a small hiatal hernia. Osseous Structures and Chest Wall: No aggressive bone lesions. Medical Devices: There is a right chest wall Port-A-Cath. Upper Abdomen: Visualized upper abdominal structures are within normallimits. IMPRESSION: No acute or chronic pulmonary embolism. No significant interval change from 04/05/2025 CTA chest feuding thespiculated mass right upper lobe, right middle lobe collapse, andmediastinal/hilar adenopathy. us Trevin Vasquez IMG CT PROCEDURES Fin al Result documented in this encounter Visit Diagnoses Diagnosis Asthma (HCC)- Primary documented in this encounter Administered Medications Inactive Administered Medications - up to 3 most recent administrations Medication Order MAR Action Action Date Dose Rate Site iopromide 370 mg iodine/mL injection 100 mL (Ultravist) 100 mL, intravenous, Once in imaging, contrast, Starting on Fri04/11/25 at 1350, For 1 dose Given 04/11/2025 2:05 PM CDT 100 mL sodium chloride 0.9 % flush 75 mL 75 mL, intravenous, Once, On Fri04/11/25 at 1400, For 1 dose Given 04/11/2025 2:05 PM CDT 75 mL sodium chloride 0.9 % injection 10 mL 10 mL, intravenous, Once, On Fri04/11/25 at 1400, For 1 dose Given 04/11/2025 2:05 PM CDT 10 mL documented in this encounter Active and Recently Administered Medications Times are shown in CDT. Scheduled Medication Order 04/09/2025 04/10/2025 04/11/2025 sodium chloride 0.9 % flush 75 mL (COMPLETED) 75 mL, intravenous, Once, On Fri04/11/25 at 1400, For 1 dose 1405 (Given - Provid er: Hue Hermel) sodium chloride 0.9 % injection 10 mL (COMPLETED) 10 mL, intravenous, Once, On Fri04/11/25 at 1400, For 1 dose 1405 (Given - Provid er: Hue Hermel) PRN Medication Order 04/09/2025 04/10/2025 04/11/2025 iopromide 370 mg iodine/mL injection 100 mL (Ultravist) (COMPLETED) 100 mL, intravenous, Once in imaging, contrast, Starting on Fri04/11/25 at 1350, For 1 dose 1405 (Given - Provid er: Hue Hermel) documented in this encounter Additional Health Concerns Infection Onset Date Last Indicated Resolved Time Protective Environment 02/14/2025 02/14/202504/30 8:54 PM CDT Assessment Noted Time A fall risk assessment has been complete d for the patient 07/05/2024 4:06 PM CDT documented as of this encounter Care Teams Cut Off Saw Operator Pipe Blanks Relationship Specialty Start Date End Date Kati Colin M.D. [address] [place] [phone] PCP - General Family Medicine 03/09/24 documented as of this encounter
--- OUTSIDE RECORDS SUMMARY | 2025-04-12 11:30 | XMS_ITS | Encounter Summary ---
Author Organization [facility] Address [address] [place] [address] Care Team Providers Care Pony Edger Name Role Phone Kati Colin M.D. Primary Care Provider Reason for Referral * Outpatient (Routine) - Closed Specialty Diagnoses / Procedures Referred By Contac t Referred To Contact Pulmonary Medicine Diagnoses Asthma With Chronic Obstructive Pulmonary Disease (HCC) Abnormal Computed Tomography Chest Chronic Cough Margarita Martinez APRN, C.N.P., D.N.P. [address] [place] [phone] Phone: tel: fax: [facility] Referral ID Status Reason Start Date Expiration Date Visits Re quested Visits Authorized [id number] Closed 04/12/2025 10/12/2026 1 1 * Outpatient (Routine) - Authorized Specialty Diagnoses / Procedures Referred By Contac t Referred To Contact Sleep Medicine Diagnoses Chronic Respiratory Failure (HCC) Chronic Obstructive Pulmonary Disease Without Exacerbation (HCC) Apnea Sleep Obstructive Margarita Martinez APRN, C.N.P., D.N.P. [address] [place] [phone] Phone: tel: fax: Sallie White APRN, C.N.P., D.N.P., M.S.N. [address] [phone] Phone: tel: fax: Referral ID Status Reason Start Date Expiration Date V isits Requested Visits Authorized [id number] Authorized 04/12/2025 10/12/2026 1 1 Reason for Visit * Outpatient (Routine) - Closed Specialty Diagnoses / Procedures Referred By Phani t Referred To Contact Pulmonary Medicine Margarita Martinez APRN, C.N.P., D.N.P. [address] [place] [address] Phone: tel: fax: [facility] Referral ID Status Reason Start Date Expiration Date Visits Re quested Visits Authorized [id number] Closed 12/21/2024 06/22/2026 1 1 Encounter Details Date Type Department Care Team (Late st Contact Info) Description 04/12/2025 11:30 AM CDT Office Visit Division of Pulmonary Medicine in [place], [place] [address] [place] [phone] Margarita Martinez APRN C.N.PGuille, D.N.P. 200 [place] [phone] Asthma With Chronic Obstructive Pulmonary Disease (HCC) (Primary Dx); Chronic Respiratory Failure (HCC); Chronic Obstructive Pulmonary Disease Without Exacerbation (HCC); Apnea Sleep Obstructive; Corticosteroid Treatment [employer] Systemic; Edema; Abnormal Computed Tomography Chest; Chronic Cough Social History Tobacco Use Types Packs/Day Years Used Date Smoking Tobacco: Former Cigarettes 0.8 94.4 0 09/29/1969 - 08/23/2018 Smokeless Tobacco: Never Comments:Quit smoking hollisa l times for several months Alcohol Use Standard Drinks/Week Comments Yes 1 (1 standard drink = 0.6 oz pur e alcohol) [facility] Utilities Answer Date Recorded In [...] AM CDT Legal Sex Female 3:35 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 - 04/12/2025 11:30 AM CDT - First thing in the morning, use the albuterol nebulizer followed by the sodium chloride nebulizer. Once you have completed the nebulizer, use the Aerobika. Once you have completed the albuterol andsodium chloride nebulizer, use the Yupelri, Formoterol, and Budesonide. We want you to use the albuterol nebulizer and sodium chloride nebulizer three times a day until you have your repeat chest CT at the end of this month. If continued to have collapse, may need to consider a bronchoscopy if continued to have the collapse. - Continue Yupelri daily, Continue Formoterol and Budesonide twice a day. You can combine the formoterol and budesonide together when using the nebulizer. Ensure you rinse your mouth out with water after each use in the morning. - Continue the prednisone and Bactrim. - Discuss with Dr. Gong regarding your anxiety. - Obtain a d-dimer, if elevated obtain a lower extremity ultrasound. - Meet with sleep medicine to discuss your night time awakenings - Continue to use your oxygen as prescribed. - Follow up at the end of this month with a video visit. - Hold off on Dupixent at this time. documented in this encounter Progress Notes * Margarita Martinez APRN, C.N.Abbi, Negro.N.P. - 04/12/2025 11:30 AM CDT SUBJECTIVE CHIEF COMPLAINT / REASON FOR VISIT COPD REFERRAL SOURCE: Margarita Martinez APRN, C.N.Dante., D.N.P. HISTORY OF PRESENT ILLNESS Luz Richardson is a 69 y.o. female who presents for follow up of COPD. Recall she is a former smoker who quit in 2018. She started at the age of [age] years old and at her most would smoke 0.5-1 pack per day. Her past medical history includes, osteoporosis on alendronate, type 2 diabetes mellitus, COPD, chronic respiratory failure on baseline oxygen, subarachnoid hemorrhage, hypertension, pulmonaryhypertension, status post carotid endarterectomy, status post PFO closure device, and history of lung and rectal cancer. She was last seen in the Pulmonary Department in October of 2024 where she continued to experienceworsening shortness of breath. She had been seen in the emergency department [place]. She had underwent a chest CT given worsening shortness of breath. She had denied a cough, fevers, or increased swelling in her legs. Her imaging had been requested to be sent to [facility] for further evaluation. It was reported that there was a 2.2 cm right upper lobe mass that we wanted to compare to prior imaging. She was given a prescription for prednisone and tizanidine. During our visit, she continued to experience dyspnea at rest and with exertion making it difficult to complete goldy ly activities. She reported pain in her back, chest, and ribs submitted difficult to breathe. She described the pain as a spasm. She continue to use her oxygen at 3 L. She reported wheezing during her exacerbations, however denied on a regular basis. She denied a productive cough. Given her complaint was primarily dyspnea, she was started on Ohtuvayre in addition to her prescribed nebulized therapy. She was to continue to use her oxygen as prescribed and consider starting pulmonary rehab to work on her endurance all. Request was completed to obtain her chest CT and to compare her previous nodules. She was to follow up in 3 months after starting her nebulized therapy to further assess symptoms. She was seen by her primary care provider a month later with increased cough and shortness of breath. She underwent a chest CT that showed an increased fibronodular opacity in the right upper lobethat has been concerning for neoplasm. She was also found to have increased mediastinal right hilar lymphadenopathy. Given these findings, a PET-CT was ordered and she was recommended to be seen in the lung nodule Clinic. In November, she was admitted to the hospital following her bronchoscopy. While she was hospitalized, she was treated for a COPD exacerbation in addition to concern for pneumonia. She was later discharged with outpatient follow up. Her biopsies did show evidence of recurrent metastatic adenocarcinoma and she was later referred to Radiation Oncology and Oncology for further management. She continued to experience chest tightness and shortness of breath. She reported her shortness of breath worsenedwith activity. She had reported improvement in her symptoms with the use of prednisone that she wastaking prior to her chemotherapy. She did ask whether she could resume her 5 mg of prednisone as she did feel like this was helpful in managing her symptoms. We did discuss starting prednisone 5 mg daily for management of dyspnea and given that she is currently undergoing chemoradiation, would recommend having her start Bactrim for PJP prophylaxis. In February, she presented to an outside facility where she reported shortness of breath and generalized weakness. She was started on levofloxacin given concern for pneumonia. A couple days later, she presented to the emergency department as she felt her shortness of breath with ambulation and weaknessat worsened. It was felt that the time that it was a viral cause and no medications were provided at discharge. She was to continue to follow as an outpatient. On April 05, she presented to the emergency department for generalized weakness and shortness of breath. She underwent a CTA that was negative for an acute PE. There was increased size of the spiculated mass within the right upper lobe that was consistent with primary lung malignancy. There was marked right middle lobe atelectasis, presumably from the mass effect. She underwent lab work and was later discharged home on prednisone and oral azithromycin as it was felt to be the cause of his COPD exacerbation. Due to little improvement in her symptoms, she was given a Medrol Dosepak during her follow up visit with primary care. On April 11, she presented to the emergency department for worsening shortness of breath and difficulty catching her breath. She underwent further evaluation including a chest CT that was negative for a pulmonary emboli. There was no significant interval change from her CTA done on 04/05/2025. She was given a prescription for prednisone and recommend to follow up as an outpatient. Today, she reports over the last couple of weeks increased shortness of breath occurring at night where she is waking up gasping for air. She feels that she had difficulty getting the breath in. She continues to experience dyspnea on exertion. She has been using 5 L of oxygen with activity. She reports an intermittent productive cough in which she is coughing up thick, foamy white sputum. She hasnoticed some congestion in her chest as well. There are times she has difficulty bringing up the mucus. She denies any wheezing. She denies any fever, chills, night sweats, chest pain, and unintentional weight loss. She is currently on a daily PPI therapy due to GERD like symptoms. She reports her s easonal allergies are well controlled. She denies any postnasal drip. She has experience increase in her lower extremity swelling over the last week. She reports pain to touch, however denies any pain in the back of her calf. She denies any pain with ambulation. She reports that her taste has decreased since undergoing chemoradiation. She continues using her nebulizers as prescribed. She is on prednisone 5 mg daily. With her being on antibiotics for recent pneumonia and COPD exacerbation, she has stopped the Bactrim. She has also stopped the azithromycin prophylactically for exacerbation prevention. CURRENT DYSPNEA LEVEL: mMRC Breathlessness Scale: Grade 4: being too breathless to leave the house or breathless when dressing The following portions of the patient's history were reviewed and updated as appropriate: current medications, medical history, social history, and problem list. OBJECTIVE Vitals: 04/12/25 1142 SpO2: 92% PHYSICAL EXAMINATION General appearance: alert, cooperative, no distress, and accompanied by her daughter and granddaughter Mouth: lips, mucosa, and tongue normal; teeth and gums normal Lungs: Rhonchi heard in the right lower lobe, otherwise clear throughout. Slightly diminished in the right upper lobe. Oxygenating on 3 L at 92% Heart: regular rate and rhythm, S1, S2 normal, no murmur, Abdomen: soft, non-tender; bowel sounds normal; no masses Extremities: Bilateral +2 lower extremity pitting edema. DIAGNOSTICS Test results are as follows: 04/05/2025 and 04/11/2025 - CTA assessed during her emergency room visits. ASSESSMENT / PLAN Ms. Richardson is a pleasant 61-year-old female who presents with her daughter and granddaughter for follow up of her asthma with COPD. Overall, she has had multiple emergency department visits due to shortness of breath and weakness. Her last visit was on 04/11/2025 where she was given a prescription for prednisone for 5 days. She continues to use her nebulizer therapy as prescribed and has been using her as-needed albuterol inhaler 2 to 3 times a day. She continues to experience dyspnea on exertion and now is experiencing dyspnea at rest. She has a productive cough where there are times she has difficulty bringing up the mucus. She reports her sputum is thick, white and foamy. She denies any wheezing. Upon review of her imaging, there is a marked right middle lobe atelectasis, presumably from the mass effect. There was increased size of the spiculated mass within the right upper lobe that is consistent with primary lung malignancy. Given her current symptoms at this time, I would like to have her start a bronchial hygiene regimenwith albuterol nebulizer followed by 3% hypertonic saline 3 times a day. After she completes her nebulizer therapy, I have asked that she use the Aerobika. Once she has completed the bronchial hygiene regimen, she can continue with her prescribed nebulizer therapy for COPD. She should ensure that she rinses her mouth out with water after each use to prevent thrush. I have also provided her with aprescription for DuoNeb to use as needed. We discussed that 1 of the medications in the DuoNeb is also in the Yupelri, I would like for her to try to avoid using more than twice a day. She should cont inue on daily prednisone and Bactrim for PJP prophylaxis. She is currently on a PPI and calcium andvitamin-D supplement. We will follow up with the right middle lobe atelectasis at the end of this month when she undergoes repeat imaging for Oncology and Radiation Oncology. If she continues to havemiddle lobe atelectasis, may need to consider undergoing a bronchoscopy for airway inspection. She has noticed an increase in her anxiety which she is wondering if that is attributing to her shortness of breath. We briefly discussed palliative care referral for symptom management, however she would like to discuss this first with her primary care provider. She also has lower extremity edema noted on exam. She reports this is increased over the last week. Her BNP in the emergency departmentwas slightly elevated, I would like to obtain a D-dimer. If her D- dimer is elevated, would recommend undergoing a lower extremity ultrasound. She has noticed some episodes of dizziness as well. She should discuss this with her primary care provider as well. We discussed staying adequately hydrated.She has experience some nighttime awakenings despite the use of her PAP therapy. A return to sleep medicine order has been placed. She should continue to use her oxygen as prescribed. We did discuss consideration of Dupixent therapy given that she is on prednisone daily and does notice some improvement in symptoms with the use of prednisone, however at this time we will hold off as I do suspect some of her shortness of breath may be related to the right middle lobe atelectasis. I will plan to follow up with her at the end of this month following her chest imaging via video visit. 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 Luz Richardson does have COPD Gold 3: Severe Group E. Oxygen: Patient is on oxygen at 6 L/min per nasal cannula.. Would recommend continue to use oxygen as directed. Patient does have COPD which does require oxygen and does benefit from oxygen supplementation. PLAN - Start bronchial hygiene regimen including albuterol nebulizer followed by 3% hypertonic saline 3 times a day. When she completed the nebulizer, use the Aerobika. After you have completed your bronchial hygiene regimen, use the Yupelri, formoterol, and budesonide as prescribed. Ensure that you rinse her mouth out with water after each use to prevent thrush. - Continue daily prednisone and Bactrim for PJP prophylaxis. - Follow up with imaging at the end of this month to assess the right middle lobe collapse. If the right middle lobe continues to be collapse, may need to consider doing a bronchoscopy for airway inspection. - Discuss with primary care provider regarding your anxiety and dizziness episodes. Discussion was had regarding palliative care referral for symptom management. - Lower extremity edema noted on exam. Patient reports this is increased over the last week. Her BNP was slightly elevated when she was seen in the emergency department yesterday, I would like to obtain a D-dimer. If the D-dimer is elevated, would recommend obtaining a lower extremity ultrasound. - Schedule a visit with sleep Medicine to further discuss the nighttime awakenings. - Continue to use her oxygen as prescribed. - At this time, hold off on Dupixent therapy. - Follow up at the end of this month following your chest imaging. Patient and her daughter are agreeable with the plan outlined above, all questions were answered. I spent 65 minutes face to face and non-face to face caring for the patient today. Margarita Martinez APRN, C.N.P., D.N.P. documented in this encounter Plan of Treatment Upcoming Encounters Date Type Department Care Team (Latest Contact Info) Description 05/04/2025 8:45 AM CDT Clinical Communication Virtual Review in [place], [place] [address] [place] [address] 05/04/2025 2:00 PM CDT Telemedicine Department of Oncology in [place], [place] [address] [phone] Antoine Phillip M.D. [address] [place] [phone] 05/05/2025 3:20 PM CDT Telemedicine Department of Oncology in [place], [place] [address] [place] [phone] Lexi Phillip APRN C.N.P., D.N.P. [address] [place] [phone] 05/06/2025 1:10 PM CDT Comprehensive Visit Division of Gastroenterology in [place], [place] [address] [place] [phone] Kati Colin M.D. [address] [place] [phone] 05/12/2025 2:00 PM CDT Comprehensive Visit Center for Sleep Medicine in [place], [place] [address] [place] [address] Phil Dorman D.O., M.S. [address] [place] [phone] 08/09/2025 1:30 PM FLOOR LAYER APPRENTICE Office Visit Department of Sleep Medicine in [place], [place] [address] [place] [phone] Sallie White APRN, C.N.P., D.N.P., M.S.N. [address] [phone] Scheduled Procedures Name Priority Associated Diagnoses Date/Ti me BRONCHOSCOPY FLEXIBLE Chronic Obstructive Pulmonary Disease Without Exacerbation (HCC) Abnormal Computed Tomography Chest Chronic Cough 05/03/2025 12:47 PM CDT Scheduled Referrals Name Type Priority Associated Diagnoses Orde r Schedule Return to provider in another specialty Outpatient Referral Routine Chronic Respiratory Failure (HCC) Chronic Obstructive Pulmonary Disease Without Exacerbation (HCC) Apnea Sleep Obstructive Expected: 04/12/2025, Expires: 07/13/2026 Pulmonary Medicine office visit (clinic) Outpatient Referral Routine Asthma With Chronic Obstructive Pulmonary Disease (HCC) Abnormal Computed Tomography Chest Chronic Cough Expected: 04/27/2025, Expires: 07/13/2026 documented as of this encounter Results * (ABNORMAL) D-Dimer (04/14/2025 9:10 AM CDT) D-Dimer, P 1038(H) <=500 ng/mL FEU 04/14/2025 10:59 AM CDT OWAT Comment: D-dimer concentrations increase with age. For DVT/PE exclusion, in addition to clinical pre-test probability, age-adjusted D-dimer cut-offs are suggested for patients >50 years old. For additional information refer to the D-dimer assay in the Laboratory Test Catalog (LTC) and/or [employer] (GREGG). ----ADDITIONAL INFORMATION---- D-dimer values less than or equal to 500 ng/mL fibrinogen equivalent units (FEU) may be used in conjunction with clinical pre-test probability to exclude deep vein thrombosis (DVT) and/or pulmonary embolism (PE). Blood (Blood, Venous) 04/14/2025 9:10 AM CDT 04/14/2025 10:39 AM CDT Margarita Martinez APRN, C.N.P., D.N.P. LAB BLOOD ADD-ON Final Result [facility] [address] [place] [address], [facility] [place] [address] [place] [address] documented in this encounter Visit Diagnoses Diagnosis Asthma With Chronic Obstructive Pulmonary Disease (HCC)- Primary Chronic Respiratory Failure (HCC) Chronic Obstructive Pulmonary Disease Without Exacerbation (HCC) Apnea Sleep Obstructive Corticosteroid Treatment [employer] Systemic Edema Abnormal Computed Tomography Chest Chronic Cough documented in this encounter Additional Health Concerns Infection Onset Date Last Indicated Resolved Time Protective Environment 02/14/2025 02/14/202504/30 8:54 PM CDT Assessment Noted Time A fall risk assessment has been complete d for the patient 07/05/2024 4:06 PM CDT documented as of this encounter Care Teams Pony Edger Relationship Specialty Start Date End Date Kati Colin M.D. [address] [place] [address] [place] [phone] PCP - General Family Medicine 03/09/24 documented as of this encounter
--- OUTSIDE RECORDS SUMMARY | 2025-04-14 08:20 | XMS_ITS | Encounter Summary ---
Author Organization [facility] Address [address] [place] [address] Care Team Providers Care River Guide Name Role Phone Kati Colin M.D. Primary Care Provider Reason for Referral * Outpatient (Routine) - Authorized Specialty Diagnoses / Procedures Referred By Contact Referred To Contact Gastroenterology and Hepatology Diagnoses Diarrhea Kati Colin M.D. [address] [place] [address] Phone: tel: fax: [facility] Referral ID Status Reason Start Date Expiration Date Visits Requested Visits Authorized [id number] Authorized Specialty Services Required 04/14/2025 10/14/2026 1 1 Scheduling Instructions GIH consult should be scheduled after all testing * Outpatient (Routine) - Authorized Specialty Diagnoses / Procedures Referred By Phani cruz Referred To Contact Physical Therapy Diagnoses Dizziness Vertigo Weakness General Orthostatic Spell Kati Colin M.D. [address] [place] [address] Phone: tel: fax: Referral ID Status Reason Start Date Expiration Date V isits Requested Visits Authorized [id number] Authorized 04/14/2025 10/14/2026 1 1 Reason for Visit * Reason Comments Follow-up * Outpatient (Routine) - Closed Specialty Diagnoses / Procedures Referred By Contac t Referred To Contact Family Medicine Diagnoses Chronic Obstructive Pulmonary Disease Without Exacerbation (HCC) Halima Osorio APRN, C.N.P., D.N.P. [address], [place] [address] Phone: tel: fax: [facility] Referral ID Status Reason Start Date Expiration Date Visits Re quested Visits Authorized [id number] Closed 04/06/2025 10/06/2026 1 1 Encounter Details Date Type Department Care Team (Late st Contact Info) Description 04/14/2025 8:20 AM CDT Office Visit Department of Family Medicine, [facility], in [place], [place] [address] [place] [phone] Kati Colin M.D. [address] [place] [phone] Dizziness (Primary Dx); Chronic Obstructive Pulmonary Disease Without Exacerbation (HCC); Vertigo; Weakness General; Orthostatic Spell; Diarrhea; Edema Leg Chronic; Anxiety; Shortness Of Breath Social History Tobacco Use Types Packs/Day Years [...] your living situation today? 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 Gender Identity Female 05/07/2024 7:38 AM CDT Sexual Orientation Straight 05/07/2024 7: 38 AM CDT documented as of this encounter Last Filed Vital Signs Vital Sign Reading Time Taken Comments Blood Pressure 103/67 04/14/2025 8:23 AM CDT Pulse 90 04/14/2025 8:23 AM CDT Temperature 36 C (96.8 F) 04/14/2025 8:23 AM CDT Respiratory Rate 16 04/14/2025 8:23 AM CDT Oxygen Saturation 96% 04/14/2025 8:2 3 AM CDT 3L O2 per nasal cannula Inhaled Oxygen Concentration - - Weight 105 kg (230 lb 14.9 oz) 04/14/2025 8:23 AM CDT Height - - Body Mass Index 38.43 04/05/2025 7:40 PM CDT documented in this encounter Progress Notes * Kati Colin M.D. - 04/14/2025 8:20 AM CDT Progress Note Luz Richardson is a 69 y.o. 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 Luz presented with concerns regarding lower limb oedema, dizziness, anxiety, and changes in bowelhabits. - The lower limb oedema has been present for over a week and affects both legs, with the left leg being worse. It is tender to touch but not painful when sitting. Compression stockings are difficult to apply due to the severity of the swelling. - Luz reported experiencing anxiety, particularly at night, when waking up with difficulty breathing and a sensation of smothering. This occurs once or twice a day, mostly at night. - Dizziness has been noted, especially after lying down for procedures like CT scans and then sitting up. It is described as a profound spinning sensation, distinct from light-headedness, to the extent that it would cause falling without support. This occurs occasionally at home, but consistently after CT scans. - Bowel habit changes include erratic episodes of leaking mucus during the day or night, sometimes accompanied by loose stools, with no warning. Stools are typically yellow. Occasionally, firm stoolsoccur unexpectedly. Prior to the onset of colitis, Luz had approximately 10 bowel movements dailyand sporadic bouts of unexplained diarrhoea, for which Imodium AD was previously used under netezza architect guidance. Significant history: - A diagnosis of COPD is established, with ongoing management including nebuliser therapy. - A CT Angiogram of the chest on 04/11/2025 showed no evidence of pulmonary embolism and no significant interval change from a previous scan on 05/05/2025. This scan noted a speculated mass in the right upper lobe, right middle lobe collapse, and mediastinal hilar adenopathy. - An EKG was recently performed and showed normal sinus rhythm. - A stress echocardiogram in October was normal. - Macular degeneration is present in the left eye, noted to be slightly worse by an industrial health and safety professor. - Doppler carotid studies from 2023 indicated mild to moderate disease in the left carotid bulb. Luz previously underwent endarterectomy on the right side for carotid disease, with the modified side appearing satisfactory. - Luz has a history of colitis and previously received cancer treatment, which included therapy. - Valsartan 80mg was previously taken for blood pressure but has been put on hold. Luz is currently only taking furosemide 20 mg for blood pressure management. - No associated numbness, tingling, vision problems, or swallowing difficulties were reported. - Varicose veins are present. Allergies Allergen Reactions Doxycycline Diarrhea Hydrocodone Itching and Rash Current Outpatient Medications: predniSONE (Deltasone) 20 mg tablet, Take 40 mg by mouth., Disp: , Rfl: acetaminophen (TylenoL 8 Hr) 650 mg ER tablet, Take 1,300 mg by mouth 2 (two) times a day., Disp: ,Rfl: acetaminophen-codeine (TylenoL #3) 300-30 mg per tablet, Take 1 tablet by mouth every 4 (four) hours as needed., Disp: , Rfl: acetaminophen-codeine (TylenoL #3) 300-30 mg per tablet, Take 1-2 tablets by mouth every 6 (six) hours as needed for pain Indications: Chronic Pain/Nonacute Pain., Disp: 90 tablet, Rfl: 0 albuterol 2.5 mg /3 mL nebulizer solution, Inhale 3 mL (2.5 mg total) by nebulization every 6 (six)hours as needed for wheezing or shortness of breath., Disp: 360 mL, Rfl: 11 albuterol 90 mcg/actuation inhaler, Inhale 2 puffs every 6 (six) hours as needed for wheezing., Disp: 18 g, Rfl: 3 alendronate (Fosamax) 10 mg tablet, Take 1 tablet (10 mg total) by mouth daily before morning meal.(Patient not taking: Reported on 04/06/2025), Disp: 90 tablet, Rfl: 3 ammonium lactate (Lac-Hydrin) 12 % lotion, Apply 1 Application topically 2 (two) times a day., Disp: , Rfl: B complex-vitamin (Super B-50) capsule, Take 1 capsule by mouth daily., Disp: , Rfl: blood sugar diagnostic strips (Accu-Chek Guide test strips), 1 test daily., Disp: 100 each, Rfl: 11 blood-glucose meter (Accu-Chek Guide Glucose Meter) [facility] [place] Device as directed., Disp: 1 each, Rfl:0 budesonide (Pulmicort) 1 mg/2 mL nebulizer solution, Inhale 2 mL (1 mg total) by nebulization 2 (two) times a day. Rinse mouth with water after use to reduce aftertaste and incidence of candidiasis. Do not swallow., Disp: 120 mL, Rfl: 11 cetirizine (ZyrTEC) 10 mg tablet, Take 10 mg by mouth every morning., Disp: , Rfl: cholecalciferol, vitamin D3, (VITAMIN D3 ORAL), Take 2 gummies by mouth daily. Patient unsure of strength, Disp: , Rfl: dapagliflozin propanediol (Farxiga) 5 mg tablet, Take 5 mg by mouth daily., Disp: , Rfl: dextromethorphan-guaiFENesin (Robitussin-DM) 10-100 mg/5 mL syrup, Take 5 mL by mouth every 4 (four) hours as needed for cough., Disp: 235 mL, Rfl: 3 diclofenac sodium (Voltaren) 1 % gel, Apply 2 g topically 4 (four) times a day as needed., Disp: , Rfl: diphenhydramine, lidocaine 2%, nystatin, antacid (mw), Take 5-10 mL by mouth 4 (four) times a day after meals and bedtime. Hold in mouth for 1 minute.Do not eat or drink for 15-30 minutes after use. You may swallow to help with throat discomfort., Disp: 240 mL, Rfl: 11 DME Oxygen, 3 L by continuous inhalation route daily., Disp: , Rfl: DME Oxygen, DME Order - for details see Order Report, Disp: 1 each, Rfl: 0 DME Oxygen, DME Order - for details see Order Report, Disp: 1 each, Rfl: 0 DME Oxygen, DME Order - for details see Order Report, Disp: 1 each, Rfl: 0 ensifentrine (Ohtuvayre) 3 mg/2.5 mL suspension for nebulization, Inhale 3 mg 2 (two) times a day.,Disp: 150 mL, Rfl: 11 ferrous sulfate 324 mg (65 mg iron) DR tablet, Take 65 mg of iron by mouth daily. (Patient not taking: Reported on 04/06/2025), Disp: , Rfl: formoterol (Perforomist) 20 mcg/2 mL nebulizer solution, Inhale 2 mL (20 mcg total) by nebulization2 (two) times a day., Disp: 360 mL, Rfl: 3 furosemide (Lasix) 20 mg tablet, Take 1 tablet (20 mg total) by mouth daily. M, W, F, Disp: 90 tablet, Rfl: 3 glipiZIDE (GlucotroL XL) 2.5 mg 24 hr tablet, TAKE 1 TABLET EVERY DAY WITH BREAKFAST, Disp: 90 tablet, Rfl: 3 hydrOXYzine (Atarax) 10 mg tablet, Take 1 tablet (10 mg total) by mouth 4 (four) times a day as needed for anxiety., Disp: 30 tablet, Rfl: 1 ipratropium-albuteroL (DuoNeb) 0.5-2.5 mg/3 mL nebulizer solution, Inhale 3 mL by nebulization 4 (four) times a day as needed for wheezing or shortness of breath. (Patient not taking: Reported on 04/06/2025), Disp: 90 mL, Rfl: 0 ipratropium-albuteroL (DuoNeb) 0.5-2.5 mg/3 mL nebulizer solution, Inhale 3 mL by nebulization 4 (four) times a day as needed for wheezing or shortness of breath., Disp: 1080 mL, Rfl: 11 lancets, 4 each 4 (four) times a day as needed (Diabetes)., Disp: 100 each, Rfl: 11 lidocaine (Lidoderm) 5 % adhesive patch,medicated, Place 1 patch on the skin daily. Apply to back daily. Keep patch on for 12 hours and take off for 12 hours., Disp: 30 patch, Rfl: 1 methylPREDNISolone (MedroL DosePak) 4 mg tablet, Follow package directions., Disp: 21 tablet, Rfl: 0 montelukast (Singulair) 10 mg tablet, take 1 tablet by mouth daily, Disp: 90 tablet, Rfl: 3 multivitamin tablet, Take 1 tablet by mouth daily., Disp: , Rfl: OLANZapine (ZyPREXA) 5 mg tablet, Take 1 tablet (5 mg total) by mouth at bedtime as needed (nausea,vomiting). May take dose early if needed., Disp: 30 tablet, Rfl: 3 omeprazole (PriLOSEC) [address] capsule, Take 1 capsule (20 mg total) by mouth daily before morning meal., Disp: 90 capsule, Rfl: 0 ondansetron (Zofran) 8 mg tablet, Take 1 tablet (8 mg total) by mouth every 8 (eight) hours as needed for nausea or vomiting (unrelieved by prochlorperazine)., Disp: 30 tablet, Rfl: 3 ondansetron ODT (Zofran-ODT) 4 mg disintegrating tablet, Dissolve 4 mg in the mouth 3 (three) timesa day as needed., Disp: , Rfl: potassium chloride 10 mEq ER tablet, Take 1 tablet by mouth daily., Disp: , Rfl: predniSONE (Deltasone) 5 mg tablet, Take 1 tablet (5 mg total) by mouth daily., Disp: 30 tablet, Rfl: 11 predniSONE (Deltasone) 5 mg tablet, Take 5 mg by mouth daily., Disp: , Rfl: prochlorperazine (Compazine) 10 mg tablet, Take 1 tablet (10 mg total) by mouth every 6 (six) hoursas needed for nausea or vomiting. (Patient not taking: Reported on 04/06/2025), Disp: 30 tablet, Rfl:3 revefenacin (Yupelri) 175 mcg/3 mL solution for nebulization nebulizer solution, Inhale 3 mL (0.175mg total) by nebulization daily., Disp: 270 mL, Rfl: 3 rosuvastatin (Crestor) 40 mg tablet, Take 1 tablet by mouth at bedtime., Disp: , Rfl: sodium chloride (NebuSaL) 3 % nebulizer solution, Inhale 4 mL by nebulization 3 (three) times a day., Disp: 360 mL, Rfl: 11 sulfamethoxazole-trimethoprim (Bactrim) 400-80 mg per tablet, Take 1 tablet by mouth daily., Disp: 30 tablet, Rfl: 5 tiZANidine (Zanaflex) 2 mg tablet, Take 2 mg by mouth every 8 (eight) hours as needed for muscle spasms., Disp: , Rfl: [Paused] valsartan (Diovan) 160 mg tablet, Take 0.5 tablets (80 mg total) by mouth daily., Disp: 90tablet, Rfl: 3 vitamins A,C,K-yrun-dqnczl (PreserVision AREDS) 7,160 Units-113 mg-100 Units per tablet, Take 1 tablet by mouth 2 (two) times a day., Disp: , Rfl: Past Medical History: Diagnosis Date Anemia 2010 [...] Cancer (Primary) NOS 2020 Sleep Apnea 2019 Social History Tobacco Use Smoking status: Former Current packs/day: 0.00 Average packs/day: 0.8 packs/day for 94.4 years (74.9 ttl pk-yrs) Types: Cigarettes Start date: 09/29/1968 Quit date: 08/23/2018 Years since quittin.6 Smokeless tobacco: Never Tobacco comments: Quit smoking several times for several months Vaping Use Vaping status: never used Substance Use Topics Alcohol use: Yes Alcohol/week: 1.0 standard drink of alcohol Types: 1 Standard drinks or equivalent per week Drug use: Not Currently Frequency: 4.0 times per week Types: Marijuana Comment: Medical marijuana-discontinued july 2024. Used sporadically for two years REVIEW OF SYSTEMS Vitals: 04/14/25 0823 BP: 103/67 BP Location: Left arm Patient Position: Sitting Cuff Size: Regular Pulse: 90 Resp: 16 Temp: 36 ??C TempSrc: Temporal SpO2: 96% Weight: 105 kg Constitutional Appearance: She is well-developed. HENT [...] Behavior normal. Luz was seen today for follow-up. Diagnoses and all orders for this visit: Dizziness Orthostatic Spell - External referral ancillary ([facility] [place]) Vertigo - External referral ancillary ([facility]) Weakness General - External referral ancillary ([facility] [place]) - External referral ancillary ([facility] [place]) - Assessment: Orthostatic dizziness, potentially related to orthostatic hypotension, can not rule out vertigo, and current medications including furosemide, debility and generalized weakness given her medical comorbidities. - Investigations planned: - D-dimer (pending results, as this was a shared investigation). - Treatment planned: - Increase fluid intake to at least 2 litres of water daily to mitigate potential blood pressure drops. - Referral to physical therapy for evaluation of dizziness, assessment for vertigo, orthostatic hypotension, and strengthening exercises. Luz was advised to move slowly when transitioning from sitting to standing positions. - Review of Valsartan re-initiation if current measures are insufficient, noting the current use ofLasix and fluctuating blood pressure. Also offered midodrine to help with orthostatic hypotension, patient deferred - Carotid ultrasound to be repeated, as the previous one was in 2021 and showed mild to moderate left carotid bulb disease. Chronic Obstructive Pulmonary Disease Without Exacerbation (HCC) - Family Medicine office visit (clinic) - Followed by pulmonology, possible bronchoscopy in the future Anxiety Shortness Of Breath - Assessment: Dyspnoea exacerbated by anxiety, particularly at night. - Treatment planned: - Low-dose hydroxyzine 10mg PRN for severe panic and anxiety. Luz was counselled about potential dizziness and the need for cautious, non-daily use due to potential interactions with potassium and risk of ulceration/bleeding with frequent use. Deferred maintenance therapy such as SSRI - Re-engagement with a therapist for coping strategies and emotional support, given recent significant life events. - Breathing exercises encouraged to help manage anxiety and dyspnoea. - Gradual reduction of supplemental oxygen from 3 litres to 2 litres to achieve target saturation of 80-92%. Diarrhea - Gastroenterology and Hepatology - General gastroenterology consult (clinic); Future - Assessment: Erratic bowel movements and mucus discharge related to colitis. - Treatment planned: - Permission given for occasional use of Imodium AD to manage symptoms, as previously recommended by a netezza architect. - Referral to gastroenterology for reassessment and management of colitis. Edema Leg Chronic - Assessment: Oedema, likely multifactorial, considering history of COPD, heart status, and currentmedications. - Investigations planned: - D-dimer (pending results). - Ultrasound of the legs (pending based on D-dimer results). - Treatment planned: - Continue furosemide dose from 20mg. Luz was counselled that this might lead to increased urination and was advised to monitor kidney function. - Reinforce use of compression stockings and leg elevation. - Recommend increased physical activity, including walking around the house and cycling for 5-10 minutes daily. - Counselled on the association between prolonged wheelchair use and fluid retention. Other orders - hydrOXYzine (Atarax) 10 mg tablet; Take 1 tablet (10 mg total) by mouth 4 (four) times a day as needed for anxiety. documented in this encounter Plan of Treatment Upcoming Encounters Date Type Department Care Team (Latest Contact Info) Description 05/04/2025 8:45 AM CDT Clinical Communication Virtual Review in [place], [place] [address] [place] [address] 05/04/2025 2:00 PM CDT Telemedicine Department of Oncology in [place], [place] [address] [place] [phone] Antoine Phillip M.D. [address] [place] [phone] 05/05/2025 3:20 PM CDT Telemedicine Department of Oncology in [place], [place] [address] [place] [phone] Lexi Phillip APRN, C.N.P., D.N.P. [address] [place] [phone] 05/06/2025 1:10 PM CDT Comprehensive Visit Division of Gastroenterology in [place], [place] [address] [place] [phone] Kati Colin M.D. [address] [place] [phone] 05/12/2025 2:00 PM CDT Comprehensive Visit [facility] in [place], [place] [address] [place] [address] Phil Dorman D.O., M.S. [address] [place] [phone] 08/09/2025 1:30 PM STOCK REPAIRER Office Visit Department of Sleep Medicine in [place], [place] [address] [place] [phone] Sallie White APRN, C.N.P., D.N.P., M.S.N. [address] [place] [phone] Scheduled Procedures Name Priority Associated Diagnoses Date/Ti me BRONCHOSCOPY FLEXIBLE Chronic Obstructive Pulmonary Disease Without Exacerbation (HCC) Abnormal Computed Tomography Chest Chronic Cough 05/03/2025 12:47 PM CDT Scheduled Referrals Name Type Priority Associated Diagnoses Order Schedule Gastroenterology and Hepatology - General gastroenterology consult (clinic) Outpatient Referral Routine Diarrhea Expected: 04/14/2025, Expires: 07/15/2026 documented as of this encounter Visit Diagnoses Diagnosis Dizziness- Primary Chronic Obstructive Pulmonary Disease Without Exacerbation (HCC) Vertigo Weakness General Orthostatic Spell Diarrhea Edema Leg Chronic Anxiety Shortness Of Breath documented in this encounter Additional Health Concerns Infection Onset Date Last Indicated Resolved Time Protective Environment 02/14/2025 02/14/202504/30 8:54 PM CDT Assessment Noted Time A fall risk assessment has been complete d for the patient 07/05/2024 4:06 PM CDT documented as of this encounter Care Teams River Guide Relationship Specialty Start Date End Date Kati Colin M.D. [address] [place] [phone] PCP - General Family Medicine 03/09/24 documented as of this encounter
--- OUTSIDE RECORDS SUMMARY | 2025-04-14 09:03 | XMS_ITS | Encounter Summary ---
Author Organization [facility] Address [address] [place] [address] Care Team Providers Care Senior Energy Trader Name Role Phone Kati Colin M.D. Primary Care Provider [phone] Encounter Details Date Type Department Care Team (Latest Contact Info) Description 04/14/2025 9:03 AM CDT - 04/14/2025 11:59 PM CDT Hospital Encounter Department of Laboratory Medicine in [place] [address] [place] [phone] Margarita Martinez, LOREN, C.N.P., D.N.P. 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 acetaminophen-codei ne (TylenoL #3) 300-30 mg per tablet Take 1 tablet by mouth every 4 (four) hours as needed. 04/13/202 5 acetaminophen-codei ne (TylenoL #3) 300-30 mg per tabletIndications:C hronic Pain/Nonacute Pain Take 1-2 tablets by mouth every 6 (six) hours as needed for pain Indications: Chronic Pain/Nonacute Pain. 90 tablet 5 albuterol 2.5 mg /3 mL nebulizer solutionIndications :Asthma With Chronic Obstructive Pulmonary Disease (HCC),Abnormal Computed Tomography Chest,Chronic Cough Inhale 3 mL (2.5 mg total) by nebulization every 6 (six) hours as needed for wheezing or shortness of breath. 360 mL 11 5 albuterol 90 mcg/actuation inhaler Inhale 2 [...] DAY WITH BREAKFAST 90 tablet 3 5 hydrOXYzine (Atarax) 10 mg tablet Take 1 tablet (10 mg total) by mouth 4 (four) times a day as needed for anxiety. 30 tablet 1 5 lancets 4 each 4 (four) times [...] 1 tablet by mouth at bedtime. 4 sodium chloride (NebuSaL) 3 % nebulizer solutionIndications :Asthma With Chronic Obstructive Pulmonary Disease (HCC),Abnormal Computed Tomography Chest,Chronic Cough Inhale 4 mL by nebulization 3 (three) times a day. 360 mL 11 5 sulfamethoxazole-tr imethoprim (Bactrim) 400-80 mg per tabletIndications:A [...] mouth daily. 90 tablet 3 5 vitamins A,C,K-tlca-bssxjj (PreserVision AREDS) 7,160 Units-113 mg-100 Units per tablet Take 1 tablet by mouth 2 (two) times a day. predniSONE (Deltasone) 20 mg tablet Take 40 mg by mouth. 5 04/15/20 25 furosemide (Lasix) 20 mg tablet Take 1 tablet (20 mg total) by mouth daily. M, W, F 90 tablet 3 4 04/22/20 25 ipratropium-albuter oL (DuoNeb) 0.5-2.5 mg/3 mL nebulizer solutionIndications :Chronic Obstructive Pulmonary Disease Without Exacerbation (HCC) Inhale 3 mL by nebulization 4 (four) times a day as needed for wheezing or shortness of breath. 1080 mL 11 5 04/15/20 25 methylPREDNISolone (MedroL DosePak) 4 mg tabletIndications:C hronic Obstructive Pulmonary Disease Without Exacerbation (HCC) Follow package directions. 21 tablet 5 04/27/20 25 predniSONE (Deltasone) 5 mg tabletIndications:A sthma With Chronic Obstructive Pulmonary Disease (HCC) Take 1 tablet (5 mg total) by mouth daily. 30 tablet 11 5 04/22/20 25 documented as of this encounter Plan of Treatment Upcoming Encounters Date Type Department Care Team (Latest Contact Info) Description 05/04/2025 8:45 AM CDT Clinical Communication Virtual Review in [address] [phone] 05/04/2025 2:00 PM CDT Telemedicine Department of Oncology in [place], [place] [address] [place] [phone] Antoine Phillip M.D. [address] [place] [phone] 05/05/2025 3:20 PM CDT Telemedicine Department of Oncology in [place], [place] [address] [facility] [place] [phone] Lexi Phillip APRN, C.N.P., D.N.P. [address] [place] [phone] 05/06/2025 1:10 PM CDT Comprehensive Visit Division of Gastroenterology in [place], [place] [address] [place] [address] Kati Colin M.D. [address] [place] [phone] 05/12/2025 2:00 PM CDT Comprehensive Visit Center for Sleep Medicine in [place], [place] [address] [place] [address] Phil Dorman, MalloryO., M.S. [address] [place] [phone] 08/09/2025 1:30 PM BENCH TECHNICIAN Office Visit Department of Sleep Medicine in [place], [place] [address] [place] [phone] Sallie White APRN, C.N.P., D.N.P., M.S.N. [address], [place] [phone] Scheduled Procedures Name Priority Associated Diagnoses Date/Ti me BRONCHOSCOPY FLEXIBLE Chronic Obstructive Pulmonary Disease Without Exacerbation (HCC) Abnormal Computed Tomography Chest Chronic Cough 05/03/2025 12:47 PM CDT documented as of this encounter Procedures Procedure Name Priority Date/Time Associated Diagnosis Comments D-DIMER, P Routine 04/14/2025 9:10 AM CDT Edema documented in this encounter Results * (ABNORMAL) D-Dimer (04/14/2025 [...] C.N.P., D.N.P. LAB BLOOD ADD-ON Final Result [facility] [address] [place] [address], [facility] in [place] [address] [place] [address] documented in this encounter Visit Diagnoses Diagnosis Edema documented in this encounter Additional Health Concerns Infection Onset Date Last Indicated Resolved Time Protective Environment 02/14/2025 02/14/202504/30 8:54 PM CDT Assessment Noted Time A fall risk assessment has been complete d for the patient 07/05/2024 4:06 PM CDT documented as of this encounter Care Teams Senior Energy Trader Relationship Specialty Start Date End Date Kati Colin M.D. [address] [place] [address] [place] [phone] PCP - General Family Medicine 03/09/24 documented as of this encounter
--- OUTSIDE RECORDS SUMMARY | 2025-04-15 13:56 | XMS_ITS | Encounter Summary ---
Author Organization [facility] Address [address] [place] [address] Care Team Providers Care Shot Grinder Operator Name Role Phone Kati Colin M.D. Primary Care Provider Reason for Referral * Outpatient (Routine) - Closed Specialty Diagnoses / Procedures Referred By Contac t Referred To Contact Diagnoses Edema Elevated D-Dimer Uncertain Significance Procedures US Lower Extremity Veins Bilateral US Lower Extremity Veins Bilateral Margarita Martinez APRN, C.N.P., D.N.P. [address] [place] [address] Phone: tel: fax: [facility] Region Referral ID Status Reason Start Date Expiration Date Visits Re quested Visits Authorized [id number] Closed 04/14/2025 07/15/2026 1 1 Reason for Visit * Outpatient (Routine) - Closed Specialty Diagnoses / Procedures Referred By Contac t Referred To Contact Diagnoses Edema Elevated D-Dimer Uncertain Significance Procedures US Lower Extremity Veins Bilateral US Lower Extremity Veins Bilateral Margarita Martinez APRN, C.N.P., D.N.P. [address] [place] [address] Phone: tel: fax: [facility] Region Referral ID Status Reason Start Date Expiration Date Visits Re quested Visits Authorized [id number] Closed 04/14/2025 07/15/2026 1 1 Encounter Details Date Type Department Care Team (Latest Contact Info) Description 04/15/2025 1:56 PM CDT - 04/15/2025 11:59 PM CDT Hospital Encounter Department of Radiology in [place], [place] [address] [place] [address] Margarita Martinez, LOREN, C.N.P., D.N.P. [address] [place] [phone] Edema; Elevated D-Dimer Uncertain Significance Discharge Disposition: Home or Self Care Social History Tobacco Use Types Packs/Day Years Used Date Smoking Tobacco: Former Cigarettes 0.8 94.4 0 09/29/1969 - 08/23/2018 Smokeless Tobacco: Never Comments:Quit smoking severa l times for several months Alcohol Use Standard Drinks/Week Comments Yes 1 (1 standard drink = 0.6 oz pur e alcohol) [facility] Utilities Answer Date Recorded In the past 12 months has e [employer], gas, oil, or water [employer] threatened to shut off services in your [...] your living situation today? 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 30 tablet 1 5 ipratropium-albuter oL (DuoNeb) 0.5-2.5 mg/3 mL nebulizer solutionIndications :Chronic Obstructive Pulmonary Disease Without Exacerbation (HCC) Inhale 3 mL by nebulization 4 (four) times a day as needed for wheezing or shortness of breath. 1080 mL 11 5 lancets 4 each 4 (four) times [...] mouth daily. 90 tablet 3 5 vitamins A,C,V-oalh-mvrpge (PreserVision AREDS) 7,160 Units-113 mg-100 Units per tablet Take 1 tablet by mouth 2 (two) times a day. furosemide (Lasix) 20 mg tablet Take 1 tablet (20 mg total) by mouth daily. M, W, F 90 tablet 3 4 04/22/20 25 methylPREDNISolone (MedroL DosePak) 4 mg tabletIndications:C [...] AM CDT Clinical Communication Virtual Review in [address] [phone] 05/04/2025 2:00 PM CDT Telemedicine Department of Oncology in [place], [place] [address] [place] [address] Antoine Phillip M.D. [address] [place] [phone] 05/05/2025 3:20 PM CDT Telemedicine Department of Oncology in [place], [place] [address] [place] [phone] Lexi Phillip APRN, C.N.P., D.N.PGuille [address] [place] [phone] 05/06/2025 1:10 PM CDT Comprehensive Visit Division of Gastroenterology in [place], [place] [address] [place] [address] Kati Colin M.D. [address] [place] [phone] 05/12/2025 2:00 PM CDT Comprehensive Visit Center for Sleep Medicine in [place], [place] [address] [place] [address] Phil Dorman D.O., M.S. [address] [place] [phone] 08/09/2025 1:30 PM BOAT DECKHAND Office Visit Department of Sleep Medicine in [place], [place] [address], [place] [phone] Sallie White APRN, C.N.P., D.N.P., M.S.N. [address] [place] [phone] Scheduled Procedures Name Priority Associated Diagnoses Date/Ti me BRONCHOSCOPY FLEXIBLE Chronic Obstructive Pulmonary Disease Without Exacerbation (HCC) Abnormal Computed Tomography Chest Chronic Cough 05/03/2025 12:47 PM CDT documented as of this encounter Procedures Procedure Name Priority Date/Time Associated Diagnosis Comments US LOWER EXTREMITY VEINS BILATERAL RAD - Routine (most inpatients and all outpatients) 04/15/2025 2:32 PM CDT Edema Elevated D-Dimer Uncertain Significance documented in this encounter Results * US Lower Extremity Veins Bilateral (04/15/2025 2:32 PM CDT) Anatomical Region Laterality Modality Lower Extremity, Ultrasound RST LOS, Ultrasound ARZ LOS, Ultrasound FLA LOS Bilateral Ultrasound Impressions 04/15/2025 2:36 PM CDT 1. Negative for acute DVT. 2. Right 5.1 cm popliteal fossa cyst. Narrative 04/15/2025 2:36 PM CDT EXAM: US LOWER EXTREMITY VEINS BILATERAL Exam performed with color and spectral Doppler analysis. COMPARISON: None. FINDINGS: RIGHT: Common Femoral Vein: Negative. Profunda Femoral Vein: Negative. Femoral Vein: Negative. Popliteal Vein: Negative. Gastrocnemius Veins: Negative where seen. Soleal Veins: Not Well Seen. Posterior Tibial Veins: Not Well Seen. Peroneal Veins: Not Well Seen. Great Saphenous Vein: Negative where seen. Small Saphenous Vein: Not Evaluated. Popliteal Fossa: 1.4 x 2.0 x 5.1 cm popliteal fossa cyst. Other: Subcutaneous edema about the calf. LEFT: Common Femoral Vein: Negative. Profunda Femoral Vein: Negative. Femoral Vein: Negative. Popliteal Vein: Negative. Gastrocnemius Veins: Not Well Seen. Soleal Veins: Not Well Seen. Posterior Tibial Veins: Negative where seen. Peroneal Veins: Negative where seen. Great Saphenous Vein: Negative where seen. Small Saphenous Vein: Not Evaluated. Popliteal Fossa: Negative. Other: Subcutaneous edema about the calf. Information on venous thrombosis and management can be found on the [employer] site. Link [email or web address] Procedure Note Christiano Oneil M.D. - 04/15/2025 EXAM: US LOWER EXTREMITY VEINS BILATERAL Exam performed with color and spectral Doppler analysis. COMPARISON: None. FINDINGS: RIGHT: Common Femoral Vein: Negative. Profunda Femoral Vein: Negative. Femoral Vein: Negative. Popliteal Vein: Negative. Gastrocnemius Veins: Negative where seen. Soleal Veins: Not Well Seen. Posterior Tibial Veins: Not Well Seen. Peroneal Veins: Not Well Seen. Great Saphenous Vein: Negative where seen. Small Saphenous Vein: Not Evaluated. Popliteal Fossa: 1.4 x 2.0 x 5.1 cm popliteal fossa cyst. Other: Subcutaneous edema about the calf. LEFT: Common Femoral Vein: Negative. Profunda Femoral Vein: Negative. Femoral Vein: Negative. Popliteal Vein: Negative. Gastrocnemius Veins: Not Well Seen. Soleal Veins: Not Well Seen. Posterior Tibial Veins: Negative where seen. Peroneal Veins: Negative where seen. Great Saphenous Vein: Negative where seen. Small Saphenous Vein: Not Evaluated. Popliteal Fossa: Negative. Other: Subcutaneous edema about the calf. Information on venous thrombosis and management can be found on theAskMayoExpert site. [email or web address] IMPRESSION: 1. Negative for acute DVT. 2. Right 5.1 cm popliteal fossa cyst. Margarita Martinez APRN, C.N.P., D.N.P. [facility] [place] OCEDURES Final Result documented in this encounter Visit Diagnoses Diagnosis Edema Elevated D-Dimer Uncertain Significance documented in this encounter Additional Health Concerns Infection Onset Date Last Indicated Resolved Time Protective Environment 02/14/2025 02/14/202504/30 8:54 PM CDT Assessment Noted Time A fall risk assessment has been complete d for the patient 07/05/2024 4:06 PM CDT documented as of this encounter Care Teams Shot Grinder Operator Relationship Specialty Start Date End Date Kati Colin M.D. [address] [place] [phone] PCP - General Family Medicine 03/09/24 documented as of this encounter
--- OUTSIDE RECORDS SUMMARY | 2025-04-18 08:18 | XMS_ITS | Encounter Summary ---
Author Organization [facility] Address [address] [place] [id number] Care Team Providers Care Dermatology Sales Representative Name Role Phone Kati Colin M.D. Primary Care Provider [phone] Reason for Visit * Reason Comments Shortness of Breath Encounter Details Date Type Department Care Team (Late st Contact Info) Description 04/18/2025 8:18 AM CDT - 04/18/2025 1:[address] [facility] Emergency Department [address] [place] [phone] Willi Jose M.D. [address] [place] [phone] Shortness Of Breath (Primary Dx) Discharge Disposition: Home or Self [...] AM CDT Legal Sex Female 3:35 PM VP GENETIC Gender Identity Female 05/07/2024 7:38 AM CDT Sexual Orientation Straight 05/07/2024 7: 38 AM CDT documented as of this encounter Last Filed Vital Signs Vital Sign Reading Time Taken Comments Blood Pressure 120/78 04/18/2025 12:30 PM CDT Pulse 80 04/18/2025 12:30 PM CDT Temperature 37 C (98.6 F) 04/18/2025 8:30 AM CDT Respiratory Rate 18 04/18/2025 12:30 PM CDT Oxygen Saturation 95% 04/18/2025 12:30 PM CDT Inhaled Oxygen Concentration - - Weight 104 kg (230 lb 2.6 oz) 04/18/2025 8:40 AM CDT Height - - Body Mass Index 38.3 04/05/2025 7:40 PM CDT documented in this encounter Discharge Instructions * Discharge Instructions* Tri Cheng M.D., Ph.D. - 04/18/2025 12:07 PM CDT Please follow up with your primary care physician about starting long-term anxiety medications, such as an SSRI or SNRI. Continue to take your nebulizer therapy as prescribed, and engage in deep breaths while doing the therapy and significant forceful coughing after. Continue your diuretic therapy (water pill) and low salt/sodium diet. documented in this encounter Medications at Time [...] 5 blood-glucose meter (Accu-Chek Guide Glucose Meter) [facility] 1 Device as directed. 1 each 5 [...] sulfamethoxazole-tr imethoprim (Bactrim) 400-80 mg per tabletIndications:A sthmsuresh With Chronic Obstructive Pulmonary Disease (HCC),Malignant Neoplasm Of Lung Adenocarcinoma Right (HCC) Take 1 tablet by mouth daily. 30 tablet 5 5 tiZANidine (Zanaflex) 2 mg tablet Take 2 mg by mouth every 8 (eight) hours as needed for muscle spasms. 5 valsartan (Diovan) 160 mg tablet Take 0.5 tablets (80 mg total) by mouth daily. 90 tablet 3 5 vitamins A,C,C-twht-yhmojp (PreserVision AREDS) 7,160 Units-113 mg-100 Units per [...] as of this encounter ED Notes * Willi Jose M.D. - 04/18/2025 9:51 AM CDT The patient verbally consented to an audio recording of their visit to assist with the completion of documentation. SUBJECTIVE CHIEF COMPLAINT/REASON FOR VISIT Shortness of Breath HISTORY OF PRESENT ILLNESS History of Present Illness Ms. Luz Richardson is a 69 year old female with COPD and type 2 diabetes mellitus who presents with shortness of breath. She experiences worsening shortness of breath, particularly severe last night, preventing sleep despite using her noninvasive ventilator. She describes a sensation of air hunger, with some relief when sitting up. This is the first time her symptoms have been this severe, although she has experienced intermittent difficulty breathing at night in the past. She has a history of COPD and is on chronic oxygen therapy, using 2 liters at rest and increasing to 4-6 liters during activity. Her oxygen saturation drops significantly with minimal exertion, necessitating rest to recover. She is currently on daily prednisone 5 mg and recently completed a course of chemoradiation for lung cancer. She was previously prescribed methylprednisolone and prednisone for shortness of breath. She reports an intermittent productive cough with thick, foamy white sputum, which has been stable.She most recently underwent a CT chest angiogram on April 11, 2025. She saw her production operations engineer on April 12, 2025, and was prescribed Duoneb as needed, along with a bronchial hygiene regimen including albuterol, nebulizer, and 3% hypertonic saline three times a day, followed by the use of the Aerobika.She also uses formoterol and budesonide. She also uses a home CPAP. She experiences significant air hunger and anxiety related to her breathing difficulties, which hasnot been alleviated by hydroxyzine given for anxiety. She uses a noninvasive ventilator at night but finds it insufficient for her air needs. She reports that using the hypertonic saline makes her jittery and nervous, so she stopped it this morning. No recent fevers or chest pain. Some abdominal pain but not associated with breathing. REVIEW OF SYSTEMS OBJECTIVE Initial Vitals Temperature 04/18/25 0830 37 ??C Pulse Rate 04/18/25 0830 87 Heart Rate 04/18/25 0830 88 Resp Rate 04/18/25 0830 19 Blood Pressure 04/18/25 0830 117/72 SpO2 04/18/25 0830 98 % Pain Score 04/18/25 0836 0 - No pain PHYSICAL EXAMINATION Physical Exam Constitutional: Nursing note and vitals reviewed. HENT: Mouth/Throat: Oropharynx is clear and moist. Mucous membranes are moist. Eyes: Conjunctivae and EOM are normal. Pupils are equal, round, and reactive to light. Right eye exhibits no discharge. Left eye exhibits no discharge. Cardiovascular: Normal rate and regular rhythm. Capillary refill: takes less than 3 secondsEdema:Right lower extremity: 1+. No pitting edema. Left lower extremity: 1+. No pitting edema. Pulmonary/Chest: There is normal air entry. No tachypnea. No respiratory distress. She has decreased breath sounds. She has no wheezes. She has rhonchi (diffuse expiratory). She has no rales. Abdominal: Soft. Bowel sounds are normal. exhibits no distension and no mass. There is no abdominaltenderness. There is no rebound and no guarding. Musculoskeletal: General: Normal range of motion. Cervical back: Normal range of motion. Neurological: Alert. She is not disoriented. No cranial nerve deficit. Skin: Skin is warm and dry. No rash noted. She is not diaphoretic. ASSESSMENT/PLAN Medical Decision Making Problem List Chronic obstructive pulmonary disease (COPD) with chronic hypoxemic respiratory failure Right middle lobe collapse Lung cancer status post chemoradiation Nocturnal dyspnea and insomnia Anxiety related to air hunger Mild anemia Mildly elevated NT-proBNP Hypokalemia Assessment and Plan Ms. Luz Richardson is a 69-year-old female with a history of COPD on chronic oxygen therapy, type 2 diabetes mellitus, and lung cancer status post chemoradiation, presenting with worsening shortness ofbreath, particularly nocturnal dyspnea and air hunger. She reports difficulty sleeping despite use of her noninvasive ventilator, and describes a sensation of air hunger that improves when sitting upright. She has an intermittent productive cough with thick, foamy white sputum, stable from baseline. She uses a comprehensive pulmonary regimen including Duoneb, albuterol, hypertonic saline, Aerobika, formoterol, budesonide, and CPAP. On exam, she is alert and nontoxic, with normal vital signs and oxygen saturation on baseline 2L [place]. Pulmonary exam reveals decreased breath sounds and diffuse expiratory rhonchi, without wheezing orrales. No signs of respiratory distress. Chest X-ray shows stable right perihilar opacification and right middle lobe collapse. ECG is normal, and labs show mild anemia and mildly elevated NT-proBNP (708), but no signs of acute decompensated heart failure. Potassium was low at 3.3 and repleted in the ED. Her dyspnea is likely multifactorial, primarily driven by chronic lung disease including COPD, right middle lobe collapse, and lung cancer. There is no evidence of acute infection, PE, or cardiac ischemia. 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 She was treated with Duonebs in the ED and advised to continue her bronchial hygiene regimen. Referral to palliative medicine was recommended for symptom management and anxiety control. Continued Pulmonology follow-up was recommended. Differential Diagnosis COPD exacerbation: Considered due to dyspnea and cough, but less likely given stable sputum, lack of wheezing, and no hypoxia. Lung cancer progression: Unlikely based on recent imaging showing no new masses or changes. Right middle lobe collapse: Likely contributing to dyspnea; may benefit from bronchoscopy per pulmonology notes. Anxiety-related dyspnea: Contributing factor, especially nocturnally; hydroxyzine has been ineffective. Heart failure: Mildly elevated BNP, but no clinical signs of volume overload or decompensation. Pulmonary embolism: Considered but ruled out based on recent CT angiogram and lack of clinical signs. Infection: No fever, leukocytosis, or imaging findings to suggest pneumonia. Functional respiratory symptoms: Considered in context of chronic disease and anxiety. Assessment and Plan I reviewed the following external records: office records, primary care records and prior outpatient labs. ED Course as of 04/18/25 1628 Mon Apr 18, 2025 0948 DX Chest AP or PA and Lateral 2 Views IMPRESSION: No substantial change since 04/05/2025. Right IJ Port-A-Cath with tip in the mid SVC. Stable, rightperihilar opacification/atelectasis and nodule. Left basilar atelectasis. Eventration of the posterior left diaphragm. Normal heart size. Intracardiac device. 0957 ECG 12 Lead Normal sinus rhythm, normal intervals, normal axis, no STEMI or STEMI equivalent. 1105 CBC with Differential, Blood(!): Hemoglobin 10.6(!) Hematocrit 33.5(!) Erythrocytes 3.52(!) MCV 95.2 RBC Distrib Width 23.8(!) Platelet Count 195 Leukocytes 6.9 Neutrophils 5.43 Lymphocytes 0.42(!) Monocytes 1.04(!) Eosinophils 0.03 Basophils <0.03 Stable from baseline 1106 NT-Pro B-Type Natriuretic Peptide (BNP)(!): NT-Pro BNP 708(!) Mildly elevated, however clinical suspicion for acute decompensated CHF is low. 1106 Potassium, P(!): 3.3 Will replete in ED Final Diagnoses: as of 04/18/25 1628 Shortness Of Breath The following tests were considered but ultimately not performed: CT chest imaging. My ECG interpretation is documented in ED Course. My Plain Films interpretation is documented in ED Course. I have personally seen and examined this patient. I have fully participated in the care of this patient. I have reviewed all clinical information including history, physical exam, orders, and plan. Iaseth with the note of the resident. Willi Jose M.D. 04/18/25 1116 Willi Jose M.D. 04/18/25 1116 Willi Jose M.D. 04/18/25 1628 * Farrah Infante R.N. - 04/18/2025 8:28 AM CDT Patient presents w/ SOB that started last evening around 2200. Hx of lung cancer and on 02 for COPD. Patient states that her oxygen saturations have been fine at home, but feels limited upon inspiration, specifically in her epigastric region. Attempted her at home nebs but felt jittery and no relief from them. On Lasix for heart failure, due to take again today. Has not noticed a weight gain. Down 0.6 kg since 4 days ago. She states she had a CT scan done on 04/11 w/ right lobe mass effect found. Not on thinners. Denies any abnormal calf swelling/pain. Farrah Infante R.N. 04/18/25 0832 Farrah Infante R.N. 04/18/25 0841 Farrah Infante R.N. 04/18/25 0843 * Tri Cheng M.D., Ph.D. - 04/18/2025 8:23 AM CDT SUBJECTIVE CHIEF COMPLAINT/REASON FOR VISIT Shortness of Breath HISTORY OF PRESENT ILLNESS Luz Richardson is a 69F with PMH of HTN, HLD, COPD on home O2, T2DM, osteoporosis, HFpEF, rectal neoplasm, lung adenocarcinoma on chemotherapy and radiation previously (finished treatment regimen, last radiation approx 03/28; last chemo 03/30) who presents with increased shortness of breath and difficulty breathing, intermittent chills, and frothy productive cough. Per patient this has been going on for weeks, at times with intermittent a duration of feeling better followed by subsequent worsening. On chart review it appears she has been seen numerous times for similar symptoms, and treated with courses of steroids and antibiotics, and it appears that she has more recently increased her dose of Lasix from 3 times a week to now daily. She was also started on an additional nebulizer therapy, which she thinks was hypertonic saline, but patient is uncertain. She also has albuterol nebulizer therapy. Today for her symptoms she took her nebs but feels like symptoms did not improve, so presented to the emergency department. Last took her Lasix yesterday in his down 0.6 kg since last weighed 4 days ago. She follows closely with pulmonary medicine here, and has oncology treatment elsewhere ([facility]). Positive for chills Neg for CP, n/v/d, abdominal, urinary sx, new rashes REVIEW OF SYSTEMS See HPI OBJECTIVE Initial Vitals Temperature 04/18/25 0830 37 ??C Pulse Rate 04/18/25 0830 87 Heart Rate 04/18/25 0830 88 Resp Rate 04/18/25 0830 19 Blood Pressure 04/18/25 0830 117/72 SpO2 04/18/25 0830 98 % Pain Score 04/18/25 0836 0 - No pain PHYSICAL EXAMINATION Constitutional: Nursing note and vitals reviewed. No distress. Cardiovascular: Normal rate. Edema: edema noted (2+) Pulmonary/Chest: Effort normal. She has wheezes (expiratory). She has rhonchi (Expiratory). Abdominal: Soft. exhibits no distension. There is no abdominal tenderness. There is no rebound and no guarding. Neurological: Alert and oriented to person, place, and time. Skin: Skin is warm, dry and intact. She is not diaphoretic. ASSESSMENT/PLAN Patient is saturating appropriately on 2 L nasal cannula here in the emergency department. Exam notable for expiratory rhonchi and some wheezing, therefore we will treat with DuoNebs here and reassess. Additionally we will get a chest x-ray and labs including assess for fluid status with BNP. While patient is not on anticoagulation, I do not think that she has a PE based on prior workup and consistent symptoms throughout. She has had multiple CT PE exams which have been negative and also had a DVT ultrasound of bilateral lower extremities on 04/15 which was negative. Differential considered includes multifactorial etiology for shortness of breath such as heart failure exacerbation, pneumonia, COPD exacerbation, worsening malignancy, anxiety. ED Course as of 04/18/25 1221 FriApr 18, 2025 1118 Potassium, P(!): 3.3 Repleting oral 1118 Hemoglobin(!): 10.6 stable 1138 NT-Pro BNP(!): 708 Mildly elevated, although patient's weight is down and she has not had her morning dose of Lasix yet 1139 DX Chest AP or PA and Lateral 2 Views IMPRESSION: No substantial change since 04/05/2025. Right IJ Port-A-Cath with tip in the mid SVC. Stable, rightperihilar opacification/atelectasis and nodule. Left basilar atelectasis. Eventration of the posterior left diaphragm. Normal heart size. Intracardiac device. 1151 On reexamination, patient continues to have rhonchi and mild wheezing, but improved from initial presentation in the emergency department. It is still present mildly posteriorly, but not presentanteriorly like it was initially. Offered patient Rx outpatient for duonebs, but she does not feel she needs an Rx. Provided substantial patient education and reassurance given anxiety component to patient's picture, and encouraged and normalized mental health care given her situation as well as the palliative care suggestions she has talked about with her team previously. She is more agreeable to this consideration and will follow up 1220 Patient has had multiple courses of steroids and antibiotics recently with only mild improvement, in his no infectious symptoms, therefore do not think any further treatment in either steroids or antibiotics is indicated Final Diagnoses: as of 04/18/25 1221 Shortness Of Breath Tri Cheng M.D., Ph.D. Resident 04/18/25 1221 documented in this encounter Plan of Treatment Upcoming Encounters Date Type Department Care Team (Latest Contact Info) Description 05/04/2025 8:45 AM CDT Clinical Communication Virtual Review in [place], [place] [address] [place] [phone] 05/04/2025 2:00 PM CDT Telemedicine Department of Oncology in [place], [place] [address], [place] [phone] Antoine Phillip M.D. [address] [place] [phone] 05/05/2025 3:20 PM CDT Telemedicine Department of Oncology in [place], [place] [address] [place] [phone] Lexi Phillip APRN, C.N.P., D.N.P. [address] [place] [phone] 05/06/2025 1:10 PM CDT Comprehensive Visit Division of Gastroenterology in [place], [place] [address] [place] [phone] Kati Colin M.D. [address] [place] [phone] 05/12/2025 2:00 PM CDT Comprehensive Visit [facility] in [place], [place] [address] [place] [phone] Phil Dorman D.O., M.S. [address] [place] [phone] 08/09/2025 1:30 PM VP GENETIC Office Visit Department of Sleep Medicine in [place], [place] [address] [place] [phone] Sallie White APRN, C.N.P., D.N.P., M.S.N. [address] [place] [phone] Scheduled Procedures Name Priority Associated Diagnoses Date/Ti me BRONCHOSCOPY FLEXIBLE Chronic Obstructive Pulmonary Disease Without Exacerbation (HCC) Abnormal Computed Tomography Chest Chronic Cough 05/03/2025 12:47 PM CDT documented as of this encounter Procedures Procedure Name Priority Date/Time Associated Diagnosis Comments HEPATIC FUNCTION PANEL, S STAT 04/18/2025 10:25 AM CDT NT-PRO B-TYPE NATRIURETIC PEPTIDE (BNP), S STAT 04/18/2025 10:25 AM CDT PROTHROMBIN TIME (PT), P STAT 04/18/2025 10:25 AM CDT CBC WITH DIFFERENTIAL, B STAT 04/18/2025 10:25 AM CDT LIPASE, S/P STAT 04/18/2025 10:25 AM CDT BASIC METABOLIC PANEL, S/P STAT 04/18/2025 10:25 AM CDT DX CHEST AP OR PA AND LATERAL 2 VIEWS RAD - Semiurgent (Fast; most ED patients; some inpatients) 04/18/2025 9:21 AM CDT ECG STAT 04/18/2025 8:25 AM CDT documented in this encounter Results * (ABNORMAL) Lipase (04/18/2025 10:25 AM CDT) Pathologist [facility] Lipase, S 63(H) 13 - 60 U/L 04/18/2025 11:28 AM CDT DTL Blood (Blood, Venous) 04/18/2025 10:25 AM CDT 04/18/2025 10:39 AM CDT Tri Cheng M.D., Ph.D. LAB BLOOD ADD-ON Fi nal Result [facility] [address] [place] [address], [facility] [address] [place] [address] * (ABNORMAL) Hepatic Function Panel (04/18/2025 10:25 AM CDT) Pathologist [facility] Bilirubin, Total, S 0.7 0.0 - 1.2 mg/dL 04/18/2025 11:28 AM CDT DTL Bilirubin, Direct, S 0.3 0.0 - 0.3 mg/dL 04/18/2025 11:28 AM CDT DTL Aspartate Aminotransferase (AST), S 23 8 - 43 U/L 04/18/2025 11:28 AM CDT DTL Alanine Aminotransferase (ALT), S 25 7 - 45 U/L 04/18/2025 11:28 AM CDT DTL Alkaline Phosphatase, S 76 35 - 104 U/L 04/18/2025 11:28 AM CDT DTL Albumin, S 3.9 3.5 - 5.0 g/dL 04/18/2025 11:28 AM CDT DTL Protein, Total, S 5.9(L) 6.3 - 7.9 g/dL 04/18/2025 11:28 AM CDT DTL Blood (Blood, Venous) 04/18/2025 10:25 AM CDT 04/18/2025 10:39 AM CDT Tri Cheng M.D., Ph.D. LAB BLOOD ADD[place] [address], [place] [address] * (ABNORMAL) NT-Pro B-Type Natriuretic Peptide (BNP) (04/18/2025 10:25 AM CDT) NT-Pro BNP 708(H) <=540 pg/mL 04/18/2025 10:57 AM CDT [facility] Comment: NT-proBNP values less than [...] absence of renal failure. Blood (Blood, Venous) 04/18/2025 10:25 AM CDT 04/18/2025 10:32 AM CDT us Tri Cheng M.D., Ph.D. LAB BLOOD ADD-ON Fi nal Result Performing Organization Address City/State/[facility] Co de Phone Number [facility] [address] [place] [address], [facility] STMA [facility] [address] [place] [address] * (ABNORMAL) Basic Metabolic Panel (04/18/2025 10:25 AM CDT) [facility] Potassium, P 3.3(L) 3.6 - 5.2 mmol/L 04/18/2025 10:50 AM CDT [facility] Sodium, P 139 135 - 145 mmol/L 04/18/2025 10:50 AM CDT [facility] Chloride, P 99 98 - 107 mmol/L 04/18/2025 10:50 AM CDT [facility] Bicarbonate, P 28 22 - 29 mmol/L 04/18/2025 10:50 AM CDT [facility] Anion Gap, P 12 7 - 15 04/18/2025 10:50 AM CDT [facility] BUN (Blood Urea Nitrogen), P 20 6 - 21 mg/dL 04/18/2025 10:50 AM CDT [facility] Creatinine 0.85 0.59 - 1.04 mg/dL 04/18/2025 10:50 AM CDT [facility] Estimated GFR (eGFR) 75 >=60 mL/min/BSA 04/18/2025 10:50 AM CDT [facility] Comment: Estimated GFR calculated using the 2020 CKD_EPI creatinine equation. Calcium, Total, P 8.9 8.8 - 10.2 mg/dL 04/18/2025 10:50 AM CDT [facility] Glucose, P 182(H) 70 - 140 mg/dL 04/18/2025 10:50 AM CDT [facility] Blood (Blood, Venous) 04/18/2025 10:25 AM CDT 04/18/2025 10:32 AM CDT us Tri Cheng M.D., Ph.D. LAB BLOOD ADD-ON Fi nal Result Performing Organization Address City/State/[facility] de Phone Number [facility] [address] [place] [address] * (ABNORMAL) Prothrombin Time (PT) (04/18/2025 10:25 AM CDT) Pathologist [facility] Prothrombin Time, P 12.7(H) 9.4 - 12.5 sec 04/18/2025 10:42 AM CDT [facility] INR 1.2 0.9 - 1.1 04/18/2025 10:42 AM CDT [facility] Comment: ----ADDITIONAL INFORMATION---- Standard intensity warfarin therapeutic range: 2.0 to 3.0 High intensity warfarin therapeutic range: 2.5 to 3.5 Blood (Blood, Venous) 04/18/2025 10:25 AM CDT 04/18/2025 10:32 AM CDT Tri Cheng M.D., Ph.D. LAB BLOOD ADD-ON Fi nal Result Performing Organization Address [facility] de Phone Number [facility] [address] [place] [address] * (ABNORMAL) CBC with Differential, Blood (04/18/2025 10:25 AM CDT) [facility] Hemoglobin 10.6(L) 11.6 - 15.0 g/dL 04/18/2025 10:36 AM CDT [facility] Hematocrit 33.5(L) 35.5 - 44.9 % 04/18/2025 10:36 AM CDT [facility] Erythrocytes 3.52(L) 3.92 - 5.13 x10(12)/L 04/18/2025 10:36 AM CDT [facility] MCV 95.2 78.2 - 97.9 fL 04/18/2025 10:36 AM CDT [facility] RBC Distrib Width 23.8(H) 12.2 - 16.1 % 04/18/2025 10:58 AM CDT [facility] Platelet Count 195 157 - 371 x10(9)/L 04/18/2025 10:36 AM CDT [facility] Leukocytes 6.9 3.4 - 9.6 x10(9)/L 04/18/2025 10:36 AM CDT [facility] Neutrophils 5.43 1.56 - 6.45 x10(9)/L 04/18/2025 10:58 AM CDT [facility] Lymphocytes 0.42(L) 0.95 - 3.07 x10(9)/L 04/18/2025 10:58 AM CDT [facility] Monocytes 1.04(H) 0.26 - 0.81 x10(9)/L 04/18/2025 10:58 AM CDT [facility] Eosinophils 0.03 0.03 - 0.48 x10(9)/L 04/18/2025 10:58 AM CDT [facility] Basophils <0.03 0.01 - 0.08 x10(9)/L 04/18/2025 10:58 AM CDT [facility] Blood (Blood, Venous) 04/18/2025 10:25 AM CDT 04/18/2025 10:32 AM CDT us Tri Cheng M.D., Ph.D. LAB BLOOD ADD-ON Fi nal Result [facility] [address] [place] [address], [facility] ST[facility] [address] [place] [address] [facility] [address] [place] [address] * DX Chest AP or PA and Lateral 2 Views (04/18/2025 9:21 AM CDT) Anatomical Region Laterality Modality Chest, Thoracic RST LOS, Tho racic ARZ LOS, Thoracic FLA LOS N/A Digital Radiography Impressions 04/18/2025 9:40 AM CDT No substantial change since 04/05/2025. Right IJ Port-A-Cath with tip in the mid SVC. Stable, right perihilar opacification/atelectasis and nodule. Left basilar atelectasis. Eventration of the posterior left diaphragm. Normal heart size. Intracardiac device. Narrative 04/18/2025 9:40 AM CDT EXAM: DX CHEST AP OR PA AND LATERAL 2 VIEWS Procedure Note Kelvin Marie M.D. - 04/18/2025 EXAM: DX CHEST AP OR PA AND LATERAL 2 VIEWS IMPRESSION: No substantial change since 04/05/2025. Right IJ Port-A-Cath with tip inthe mid SVC. Stable, right perihilar opacification/atelectasis and nodule.Left basilar atelectasis. Eventration of the posterior left diaphragm.Normal heart size. Intracardiac device. us Tri Cheng M.D., Ph.D. IMG DIAGNOSTIC IMAG ING PROCEDURES Final Result * ECG 12 Lead (04/18/2025 8:25 AM CDT) Ventricular Rate ECG/Min 87 BPM MUSE VA Interval 150 ms MUSE QRSD Interval 70 ms MUSE QT Interval 380 ms MUSE QTC Interval 457 ms MUSE P [place] 41 degrees MUSE R [place] 21 degrees MUSE T Wave [place] 61 degrees MUSE 04/18/2025 8:25 AM CDT 04/18/2025 8:58 AM CDT Impressions MUSE - 04/18/2025 8:58 AM CDT Poor data quality Normal sinus rhythm Normal ECG When compared with ECG of 05-Apr-2025 15:52, QRS voltage has increased Reviewed by NIC Magana Narrative Procedure Note Jerry Garrido M.D. - 04/18/2025 IMPRESSION: Poor data quality Normal sinus rhythm Normal ECG When compared with ECG of 05-Apr-2025 15:52, QRS voltage has increased Reviewed by NIC Magana us Willi Jose M.D. ECG ORDERABLES Final Result MUSE NA documented in this encounter Visit Diagnoses Diagnosis Shortness Of Breath- Primary documented in this encounter Administered Medications Inactive Administered Medications - up to 3 most recent administrations Medication Order MAR Action Action Date Dose Rate Site hydrOXYzine tablet 10 mg (Atarax) 10 mg, oral, Once, On Fri04/18/25 at 1151, For 1 dose Given 04/18/2025 12:08 PM CDT 10 mg ipratropium-albuteroL 0.5-2.5 mg/3 mL nebulizer solution 3 mL (DuoNeb) 3 mL, nebulization, Once, On Fri04/18/25 at 0915, For 1 dose Given 04/18/2025 9:27 AM CDT 3 mL ipratropium-albuteroL 0.5-2.5 mg/3 mL nebulizer solution 3 mL (DuoNeb) 3 mL, nebulization, Once, On Fri04/18/25 at 0915, For 1 dose Given 04/18/2025 9:27 AM CDT 3 mL ipratropium-albuteroL 0.5-2.5 mg/3 mL nebulizer solution 3 mL (DuoNeb) 3 mL, nebulization, Once, On Fri04/18/25 at 0915, For 1 dose Given 04/18/2025 9:27 AM CDT 3 mL potassium chloride ER tablet 40 mEq 40 mEq, oral, Once, On Fri04/18/25 at 1058, For 1 dose, Swallow whole. Do NOT crush, chew, or split tablet. Given 04/18/2025 12:33 PM CDT 40 mEq sodium chloride 3 % nebulizer solution 4 mL (NebuSaL) 4 mL, nebulization, Once, On Fri04/18/25 at 1240, For 1 dose Given 04/18/2025 12:53 PM CDT 4 mL documented in this encounter Active and Recently Administered Medications Times are shown in CDT. Scheduled Medication Order 04/16/2025 04/17/2025 04/18/2025 hydrOXYzine tablet 10 mg (Atarax) (COMPLETED) 10 mg, oral, Once, On Fri04/18/25 at 1151, For 1 dose 1208 (Given - Provid er: Ashley Ta R.N.) ipratropium-albuteroL 0.5-2.5 mg/3 mL nebulizer solution 3 mL (DuoNeb) (COMPLETED) 3 mL, nebulization, Once, On Fri04/18/25 at 0915, For 1 dose 0927 (Given - Provid er: Farrah S Arniex, R.N.) ipratropium-albuteroL 0.5-2.5 mg/3 mL nebulizer solution 3 mL (DuoNeb) (COMPLETED) 3 mL, nebulization, Once, On Fri04/18/25 at 0915, For 1 dose 0927 (Given - Provid er: Farrah S Dux, R.N.) ipratropium-albuteroL 0.5-2.5 mg/3 mL nebulizer solution 3 mL (DuoNeb) (COMPLETED) 3 mL, nebulization, Once, On Fri04/18/25 at 0915, For 1 dose 09 (Given - Provid er: Farrah S Dux, R.N.) potassium chloride ER tablet 40 mEq (COMPLETED) 40 mEq, oral, Once, On Fri04/18/25 at 1058, For 1 dose, Swallow whole. Do NOT crush, chew, or split tablet. 1233 (Given - Provid er: Farrah S Dux, R.N. - Comment: hydroxyzine first) sodium chloride 3 % nebulizer solution 4 mL (NebuSaL) (COMPLETED) 4 mL, nebulization, Once, On Fri04/18/25 at 1240, For 1 dose 1253 (Given - Provid er: Farrah S Dux, R.N.) documented in this encounter Additional Health Concerns Infection Onset Date Last Indicated Resolved Time Protective Environment 02/14/2025 02/14/202504/30 8:54 PM CDT Assessment Noted Time A fall risk assessment has been complete d for the patient 07/05/2024 4:06 PM CDT documented as of this encounter Care Teams Dermatology Sales Representative Relationship Specialty Start Date End Date Kati Colin M.D. [address] [place], [place] [address] [phone] PCP - General Family Medicine 03/09/24 documented as of this encounter
--- OUTSIDE RECORDS SUMMARY | 2025-04-26 10:22 | XMS_ITS | Encounter Summary ---
Author Organization [facility] Address [address] [place] [address] Care Team Providers Care Heavy Truck Mechanic Name Role Phone Kati Colin M.D. Primary Care Provider Reason for Referral * MRI/CAT/PET Scan (Routine) - Closed Specialty Diagnoses / Procedures Referred By Phani cruz Referred To Contact Radiology Diagnoses Malignant Neoplasm Of Lung Adenocarcinoma Right (HCC) Abnormal Positron Emission Tomography Scan Lymphadenopathy Gastrointestinal Procedures CT Abdomen Pelvis with IV Contrast Antoine Phillip M.D. [address] [place] [address] Phone: tel: fax: [facility] Region Referral ID Status Reason Start Date Expiration Date Visits Re quested Visits Authorized [id number] Closed 03/29/2025 06/29/2026 1 1 * MRI/CAT/PET Scan (Routine) - Closed Specialty Diagnoses / Procedures Referred By Phani cruz Referred To Contact Radiology Diagnoses Malignant Neoplasm Of Lung Adenocarcinoma Right (HCC) Procedures CT Chest with IV Contrast Ange Sawyer M.D. [address] [place] [address] Phone: tel: fax: [facility] Region Referral ID Status Reason Start Date Expiration Date Visits Re quested Visits Authorized [id number] Closed 03/28/2025 06/28/2026 1 1 Reason for Visit * MRI/CAT/PET Scan (Routine) - Closed Specialty Diagnoses / Procedures Referred By Phani t Referred To Contact Radiology Diagnoses Malignant Neoplasm Of Lung Adenocarcinoma Right (HCC) Procedures CT Chest with IV Contrast Ange Sawyer M.D. [address] [place] [address] Phone: tel: fax: [facility] Region Referral ID Status Reason Start Date Expiration Date Visits Re quested Visits Authorized [id number] Closed 03/28/2025 06/28/2026 1 1 Encounter Details Date Type Department Care Team (Latest Contact Info) Description 04/26/2025 10:22 AM CDT - 04/26/2025 11:59 PM CDT Hospital Encounter Department of Radiology in [place], [place] [address] [place] [address] Ange Sawyer M.D. [address] [place] [address] Malignant Neoplasm Of Rectum (HCC) (Primary Dx); Malignant Neoplasm Of Lung Adenocarcinoma Right (HCC); Abnormal Positron Emission Tomography Scan; Lymphadenopathy Gastrointestinal; Secondary Malignant Neoplasm Lymph Node Intrathoracic (HCC) Discharge Disposition: Home or Self Care Social History Tobacco Use Types Packs/Day Years Used Date Smoking Tobacco: Former Cigarettes 0.8 94.4 0 09/29/1969 - 08/23/2018 Smokeless Tobacco: Never Comments:Quit smoking severa l times for several months Alcohol Use Standard Drinks/Week Comments Yes 1 (1 standard drink = 0.6 oz pur e alcohol) [facility] Utilities Answer Date Recorded In the past 12 months has [employer], gas, oil, or water [employer] threatened to shut off services in your [...] your living situation today? 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 360 mL 3 4 furosemide (Lasix) 20 mg tablet Take 1 tablet (20 mg total) by mouth daily. 90 tablet 3 5 glipiZIDE (GlucotroL XL) 2.5 mg 24 hr [...] wheezing or shortness of breath. 1080 mL 5 lancets 4 each 4 (four) times a day as needed (Diabetes). 100 each 5 lidocaine (Lidoderm) 5 % adhesive patch,medicatedIndi [...] tablet Take 5 mg by mouth daily. predniSONE (Deltasone) 5 mg tabletIndications:A stcrystal With Chronic Obstructive Pulmonary Disease (HCC) Take 1 tablet (5 mg total) by mouth daily. 30 tablet 11 5 prochlorperazine (Compazine) 10 mg tabletIndications:M alignant Neoplasm [...] mouth daily. 90 tablet 3 5 vitamins A,C,Y-otia-gqvjjw (PreserVision AREDS) 7,160 Units-113 mg-100 Units per tablet Take 1 tablet by mouth 2 (two) times a day. methylPREDNISolone (MedroL DosePak) 4 mg tabletIndications:C hronic Obstructive Pulmonary Disease Without Exacerbation (HCC) Follow package directions. 21 tablet 5 04/27/20 25 documented as of this encounter Plan of Treatment Upcoming Encounters Date Type Department Care Team (Latest Contact Info) Description 05/04/2025 8:45 AM CDT Clinical Communication Virtual Review in [place], [place] [address] [place] [address] 05/04/2025 2:00 PM CDT Telemedicine Department of Oncology in [place], [place] [address] [place] [address] Antoine Phillip M.D. [address] [place] [phone] 05/05/2025 3:20 PM CDT Telemedicine Department of Oncology in [place], [place] [address] [place] [phone] Lexi Phillip APRN, C.N.P., D.N.P. [address] [place] [phone] 05/06/2025 1:10 PM CDT Comprehensive Visit Division of Gastroenterology in [place], [place] [address] [place] [address] Kati Colin M.D. [address] [place] [phone] 05/12/2025 2:00 PM CDT Comprehensive Visit Center for Sleep Medicine in [place], [place] [address] [place] [phone] Phil Dorman D.O., M.S. [address] [place] [address] 08/09/2025 1:30 PM GROUNDSKEEPER PORTER Office Visit Department of Sleep Medicine in [place], [place] [address] [place] [phone] Sallie White APRN, C.N.P., D.N.P., M.S.N. [address] [place] [phone] Scheduled Procedures Name Priority Associated Diagnoses Date/Ti me BRONCHOSCOPY FLEXIBLE Chronic Obstructive Pulmonary Disease Without Exacerbation (HCC) Abnormal Computed Tomography Chest Chronic Cough 05/03/2025 12:47 PM CDT documented as of this encounter Procedures Procedure Name Priority Date/Time Associated Diagnosis Comments CT ABDOMEN PELVIS WITH IV CONTRAST RAD - Routine (most inpatients and all outpatients) 04/26/2025 11:38 AM CDT Malignant Neoplasm Of Lung Adenocarcinoma Right (HCC) Abnormal Positron Emission Tomography Scan Lymphadenopathy Gastrointestinal CT CHEST WITH IV CONTRAST RAD - Routine (most inpatients and all outpatients) 04/26/2025 11:38 AM CDT Malignant Neoplasm Of Lung Adenocarcinoma Right (HCC) documented in this encounter Results * CT Abdomen Pelvis with IV Contrast [...] Mediastinum: Unremarkable visualized thyroid gland. Right chest [id number] terminates in the SVC. Normal heart size. [...] 3. No abdominopelvic abnormality. Antoine Phillip M.D. [facility] CT PROCEDURES Final Result * CT Chest with IV Contrast (04/26/2025 [...] Mediastinum: Unremarkable visualized thyroid gland. Right chest [id number]-P-[id number] terminates in the SVC. Normal heart size. [...] Action Date Dose Rate Site heparin flush 500 Units 500 Units, intra-catheter, As needed, line care, Starting on Fri04/26/25 at 1138, When IVAD accessed and not infusing: When no infusion to maintain patency flush every 7 days following NaCL flush. 5 mL (500 units) of Heparin 100 units/mL to each port/lumen. When IVAD not accessed or infusing: When no infusion to maintain patency flush every 28 days following NaCL flush. 5 mL (500 units) of Heparin 100 units/mL to each port/lumen.Indications:Malignan t Neoplasm Of Lung Adenocarcinoma Right (HCC),Malignant Neoplasm Of Rectum (HCC),Secondary Malignant Neoplasm Lymph Node Intrathoracic (HCC) Given 04/26/2025 11:38 AM CDT 500 Units iohexoL 300 mg iodine/mL solution 173 mL (Omnipaque) 173 mL, oral, Once in imaging, contrast, Starting on Fri04/26/25 at 1133, For 1 dose Given 04/26/2025 11:25 AM CDT 173 mL sodium chloride 0.9 % flush 93 mL 93 mL, intravenous, Once, On Fri04/26/25 at 1200, For 1 dose Given 04/26/2025 11:25 AM CDT 93 mL sodium chloride 0.9 % injection 10 mL 10 mL, intravenous, Every 8 hours scheduled, First dose on Fri04/26/25 at 1400 Given 04/26/2025 11:25 AM CDT 10 mL sodium chloride 0.9 % injection 10-20 mL 10-20 mL, intra-catheter, As needed, line care, Starting on Fri04/26/25 at 1138, When IVAD accessed and not infusing: When no infusion to maintain patency flush every 7 days followed by heparin flush. 10 mL to each port/lumen. When IVAD not accessed or infusing: When no infusion to maintain patency flush every 28 days followed by heparin flush. 10 mL to each port/lumen.Indications:Malignan t Neoplasm Of Lung Adenocarcinoma Right (HCC),Malignant Neoplasm Of Rectum (HCC),Secondary Malignant Neoplasm Lymph Node Intrathoracic (HCC) Given 04/26/2025 11:38 AM CDT 20 mL documented in this encounter Additional Health Concerns Infection Onset Date Last Indicated Resolved Time Protective Environment 02/14/2025 02/14/202504/30 8:54 PM CDT Assessment Noted Time A fall risk assessment has been complete d for the patient 07/05/2024 4:06 PM CDT documented as of this encounter Care Teams Heavy Truck Mechanic Relationship Specialty Start Date End Date Kati Colin M.D. [address] [place] [address] [place] [address] PCP - General Family Medicine 03/09/24 documented as of this encounter
--- OUTSIDE RECORDS SUMMARY | 2025-04-26 13:00 | XMS_ITS | Encounter Summary ---
Author Organization [facility] Address [address] [place] [address] Care Team Providers Care Processing Manager Name Role Phone Kati Colin M.D. Primary Care Provider Reason for Visit * Reason Comments Nurse Visit Port access for CT * Outpatient (Routine) - Closed Specialty Diagnoses / Procedures Referred By Phani t Referred To Contact Diagnoses Malignant Neoplasm Of Rectum (HCC) Procedures Perform central commercial airline pilot: Other (specify); access for CT Antoine Phillip M.D. [address] [place] [address] Phone: tel: fax: [facility] Region Referral ID Status Reason Start Date Expiration Date Visits Re quested Visits Authorized [id number] Closed 04/26/2025 07/27/2026 1 1 Encounter Details Date Type Department Care Team (Late st Contact Info) Description 04/26/2025 1:00 PM CDT Infusion Department of Infusion Therapy in [place], [place] [address] [place] [phone] Antoine Phillip M.D. [address] [place] [address] Malignant Neoplasm Of Lung Adenocarcinoma Right (HCC) (Primary Dx); Malignant Neoplasm Of Rectum (HCC); Secondary Malignant Neoplasm Lymph Node Intrathoracic (HCC) Social History Tobacco Use Types Packs/Day Years Used Date Smoking Tobacco: Former Cigarettes 0.8 94.4 0 09/29/1969 - 08/23/2018 Smokeless Tobacco: Never Comments:Quit smoking severa l times for several months Alcohol Use Standard Drinks/Week Comments Yes 1 (1 standard drink = 0.6 oz pur e alcohol) [facility] Utilities Answer Date Recorded In the past 12 months has e [employer], gas, oil, or water [employer] threatened to shut off services in your [...] your living situation today? 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 [address] [place] [phone] 05/05/2025 3:20 PM CDT Telemedicine Department of Oncology in [place], [place] [address] [place] [phone] Lexi Phillip APRN, C.N.P., D.N.P. [address] [place] [phone] 05/06/2025 1:10 PM CDT Comprehensive Visit Division of Gastroenterology in [place], [place] [address] [place] [phone] Kati Colin M.D. [address] [place] [phone] 05/12/2025 2:00 PM CDT Comprehensive Visit Center for Sleep Medicine in [place], [place] [address] [place] [phone] Phil Dorman D.O., M.S. [address] [place] [phone] 08/09/2025 1:30 PM BAR ATTENDANT Office Visit Department of Sleep Medicine in [place], [place] [address] [place] [phone] Sallie White APRN, C.N.P., D.N.P., M.S.N. [address] [place] [address] Scheduled Procedures Name Priority Associated Diagnoses Date/Ti me BRONCHOSCOPY FLEXIBLE Chronic Obstructive Pulmonary Disease Without Exacerbation (HCC) Abnormal Computed Tomography Chest Chronic Cough 05/03/2025 12:47 PM CDT documented as of this encounter Visit Diagnoses Diagnosis Malignant Neoplasm Of Lung Adenocarcinoma Right (HCC)- Primary Malignant Neoplasm Of Rectum (HCC) Secondary Malignant Neoplasm Lymph Node Intrathoracic (HCC) documented in this encounter Administered Medications Inactive Administered Medications - up to 3 most recent administrations Medication Order MAR Action Action Date Dose Rate Site sodium chloride 0.9 % injection 10-20 mL 10-20 mL, intra-catheter, As needed, line care, Starting on Fri04/26/25 at 1100, When IVAD accessed and not infusing: When no infusion to maintain patency flush every 7 days followed by heparin flush. 10 mL to each port/lumen. When IVAD not accessed or infusing: When no infusion to maintain patency flush every 28 days followed by heparin flush. 10 mL to each port/lumen.Indications:Malignant Neoplasm Of Rectum (HCC),Malignant Neoplasm Of Lung Adenocarcinoma Right (HCC),Secondary Malignant Neoplasm Lymph Node Intrathoracic (HCC) Given 04/26/2025 11:00 AM CDT 10 mL documented in this encounter Additional Health Concerns Infection Onset Date Last Indicated Resolved Time Protective Environment 02/14/2025 02/14/202504/30 8:54 PM CDT Assessment Noted Time A fall risk assessment has been complete d for the patient 07/05/2024 4:06 PM CDT documented as of this encounter Care Teams Processing Manager Relationship Specialty Start Date End Date Kati Colin M.D. [address] [place] [phone] PCP - General Family Medicine 03/09/24 documented as of this encounter
--- OUTSIDE RECORDS SUMMARY | 2025-04-27 11:00 | XMS_ITS | Encounter Summary ---
Author Organization [facility] Address [address] [place] [id number] Care Team Providers Care Vp Digital Marketing Name Role Phone Kati Colin M.D. Primary Care Provider Reason for Visit * Outpatient (Routine) - Closed Specialty Diagnoses / Procedures Referred By Phani cruz Referred To Contact Pulmonary Medicine Diagnoses Asthma With Chronic Obstructive Pulmonary Disease (HCC) Abnormal Computed Tomography Chest Chronic Cough Margarita Martinez APRN, C.N.P., D.N.P. [address] [place] [phone] Phone: tel: fax: [facility] Referral ID Status Reason Start Date Expiration Date Visits Re quested Visits Authorized [id number] Closed 04/12/2025 10/12/2026 1 1 Encounter Details Date Type Department Care Team (Late st Contact Info) Description 04/27/2025 11:00 AM CDT Telemedicine Division of Pulmonary Medicine in [place], [place] [address] [place] [phone] Margarita Martinez APRN, C.N.P., D.N.P. 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 I have a [facility] place to live 12/26/2024 Comments No Sex and Gender Information Value Date Recorded Sex Assigned at Female 05/07/2024 7:38 AM CDT Legal Sex Female 3:35 PM HANGER OFF Gender Identity Female 05/07/2024 7:38 AM CDT Sexual Orientation Straight 05/07/2024 7: 38 AM CDT documented as of this encounter Progress Notes * Margarita Martinez APRN, C.N.P., D.N.P. - 04/27/2025 11:00 AM CDT SUBJECTIVE CHIEF COMPLAINT / REASON FOR VISIT COPD REFERRAL SOURCE: Margarita Martinez APRN, C.N.P., D.N.P. HISTORY OF PRESENT ILLNESS Luz Richardson is a 69 y.o. female who presents for follow up of COPD. This was a video visit, thepatient was present in her home in [place], [place] and I was present at [facility] in [place], [place]. Recall she is a former smoker who quit in 2018. She started at the age of [age] years old and at her most would smoke 0.5- 1 pack per day. Her past medical history includes, osteoporosis on alendronate, type 2 diabetes mellitus, COPD, chronic respiratory failure on baseline oxygen, subarachnoid hemorrhage, hypertension, pulmonary hypertension, status post carotid endarterectomy, status post PFO closure device, and history of lung and rectal cancer. She was last evaluated on 04/12/2025 where she had reported increased shortness of breath over the last couple weeks would occur at night where she was waking up gasping for air. She felt that she haddifficulty getting her breath in. She continues to experience dyspnea on exertion. She had been using 5 L of oxygen with activity. She reported an intermittent productive cough which she would cough up thick, foamy white sputum. She reported congestion in her chest as well. There were times she haddifficulty bringing up the mucus. She denied wheezing. She reported lower extremity swelling that had worsened over the last week. She continue to take prednisone daily. Due to being on antibiotics re cently for pneumonia and a COPD exacerbation she had stopped the Bactrim. During our evaluation, werecommended that she continue on daily prednisone and Bactrim for PJP prophylaxis. She was to starta bronchial hygiene regimen given the right middle lobe collapse. She was to use albuterol nebulizer followed by 3% hypertonic saline 3 times a day. Once she completed the nebulizer therapy, she was to use the Aerobika. She was to continue on triple nebulizer therapy for management of her COPD. Given her anxiety and dizziness, she is recommended to discuss with her primary care provider for further management. Given lower extremity edema, a D-dimer was checked as she had recently underwent a CTA and BNP which were unremarkable. Due to the D-dimer being elevated, she underwent a lower extremity ultrasound that was negative for an acute DVT. She was recommended to meet with sleep Medicine to further discuss her nighttime awakenings. Discussion was had in regards to Dupixent therapy, howevergiven her current clinical status, this would be addressed at a future appointment. Unfortunately, she did end up in the emergency department shortly after our visit for worsening shortness of breath. She underwent evaluation and was recommended that she continue using her nebulizers as prescribed. No additional medications were warranted and she was to continue to follow up as anoutpatient. Today, she does feel like her breathing has worsened since our last visit making it difficult for her to sleep at night. She continues to experience dyspnea on exertion that will improve with rest. She will intermittently experience shortness breath at rest. She reports her primary complaint is dyspnea at night where she feels like she is not getting enough air in. She was given a prescription for as-needed hydroxyzine with little improvement in her symptoms. She will occasionally have a productive cough with thick, foamy sputum. She will experience wheezing if she were active, however with rest her symptoms improve. She denies any fever, chills, and night sweats. She has noticed improvement in her lower extremity swelling. She will intermittently experience chest tightness and palpitations. She is bothered by nasal congestion and has been using [id number]-[id number]-aridynm nasal sprays. She has not been using humidified air with the use of her oxygen. She continues to use her albuterol and sodium chloride nebulizer 3 times a day in addition to her triple nebulizer therapy. The following portions of the patient's history were reviewed and updated as appropriate: current medications, medical history, social history, and problem list. OBJECTIVE PHYSICAL EXAMINATION This was a video visit, the patient was not assessed. She was resting comfortably in her home with the use of oxygen. She was able to converse in full sentences without breathlessness noted. DIAGNOSTICS Test results are as follows: Chest CT with IV Contrast 04/26/2025 IMPRESSION: 1. New right basilar pulmonary opacities, likely infectious/inflammatory process. 2. No significant interval change or finding to suggest disease progression. 3. No abdominopelvic abnormality. ASSESSMENT / PLAN Ms. Richardson is a pleasant 69 year old female who presents with her daughter for follow up of her COPD after undergoing a repeat chest CT. This was a video visit, the patient was present in her home [place], [place] and I was present in [place], [place] at [facility]. She overall feels that her breathing has worsened. She is having difficulty sleeping at night due to night time awakenings. She has not been able to wear her iVAPS machine as she feels she cannot get enough air in her lungs. She willintermittent experience shortness of breath at rest. She continues to experience dyspnea on exertion that will improve with rest. She continues to have a productive cough with thick, foamy sputum. When she initially started on the bronchial hygiene regimen, she reported she was able to cough up themucus, however this has reduced. She will intermittently experience a wheeze with exertion. She hasbeen using the albuterol and hypertonic saline three times a day in addition to her prescribed nebulizer therapy for COPD. She has been using prednisone daily in addition to Bactrim for PJP prophylaxis. Given continued right middle lobe collapse and current symptoms at this time, I would like for her to undergo a bronchoscopy for airway inspection and assess for an endobronchial lesion. I would alsolike to send washings for gram stain, bacterial culture, fungal smear, fungal culture, AFB and mycobacterial culture on the testing. She should continue on current nebulizer therapy for management ofher COPD. We discussed continuing the bronchial hygiene regimen at least twice a day. She should continue prednisone daily and Bactrim for PJP prophylaxis. A referral to palliative care was made by primary care provider. I have reached out to her sleep medicine provider given her continued night time awakenings for further guidance on management. She should continue to use her oxygen as prescribed. Denies anticoagulation therapy. Denies opioid and benzodiazepine use. Denies GLP1 use. She will hold Farxiga 3 days prior to the bronchoscopy per recommendations from [employer]. She will hold herGlipizide the day prior and morning of her bronchoscopy. She has a history of obstructive sleep apnea on iVAPS therapy. She is planning to undergo her bronchoscopy in [place]. 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 When she completed the nebulizer, use the Aerobika. After you have completed your bronchial hygiene regimen, use the Yupelri, formoterol, and budesonide as prescribed. Ensure that you rinse her mouth out with water after each use to prevent thrush. - Continue daily prednisone and Bactrim for PJP prophylaxis. - Palliative care referral placed by primary care provider to outside facility. - Schedule a visit with Sleep Medicine to further discuss the nighttime awakenings. [employer] message has been sent to sleep medicine provider. - Continue to use oxygen as prescribed. - At this time, hold off on Dupixent therapy. - Follow up after bronchoscopy. Note to proceduralist: Please perform flexible bronchoscopy for airway inspection. Patient has right middle lobe atelectasis that is new since February 2025, worsening shortness of breath. History of stage IIIB adenocarcinoma of the right upper lung. Please send washing for gram stain, bacterial culture, fungal smear, fungal culture, AFB and mycobacterial culture on the testing. Patient and her daughter are agreeable with the plan outlined above, all questions were answered. This case was discussed with my physician colleague, Dr. Gilliam. I spent 30 minutes face to face and non-face to face caring for the patient today. Margarita Martinez APRN, Kael.N.P., D.N.P. documented in this encounter Plan of Treatment Upcoming Encounters Date Type Department Care Team (Latest Contact Info) Description 05/04/2025 8:45 AM CDT Clinical Communication Virtual Review in [place], [place] [address] [place] [phone] 05/04/2025 2:00 PM CDT Telemedicine Department of Oncology in [place], [place] [address] [phone] Antoine Phillip M.D. [address] [place] [phone] 05/05/2025 3:20 PM CDT Telemedicine Department of Oncology in [place], [place] [address] [place] [phone] Lexi Phillip APRN, C.N.P., D.N.P. [address] [place] [phone] 05/06/2025 1:10 PM CDT Comprehensive Visit Division of Gastroenterology in [place], [place] [address] [place] [phone] Kati Colin M.D. [address] [place] [phone] 05/12/2025 2:00 PM CDT Comprehensive Visit Center for Sleep Medicine in [place], [place] [address] [place] [phone] Phil Dorman D.O., M.S. [address] [place] [phone] 08/09/2025 1:30 PM HANGER OFF Office Visit Department of Sleep Medicine in [place], [place] [address] [phone] Sallie White APRN, C.N.P., D.N.P., M.S.N. [address] [phone] Scheduled Procedures Name Priority Associated Diagnoses Date/Ti me BRONCHOSCOPY FLEXIBLE Chronic Obstructive Pulmonary Disease Without Exacerbation (HCC) Abnormal Computed Tomography Chest Chronic Cough 05/03/2025 12:47 PM CDT documented as of this encounter Visit Diagnoses Diagnosis Chronic Obstructive Pulmonary Disease Without Exacerbation (HCC)- Primary Corticosteroid Treatment Custodial Systemic Abnormal Computed Tomography Chest Chronic Cough documented in this encounter Additional Health Concerns Infection Onset Date Last Indicated Resolved Time Protective Environment 02/14/2025 02/14/202504/30 8:54 PM CDT Assessment Noted Time A fall risk assessment has been complete d for the patient 07/05/2024 4:06 PM CDT documented as of this encounter Care Teams Vp Digital Marketing Relationship Specialty Start Date End Date Kati Colin M.D. [address] [place] [phone] PCP - General Family Medicine 03/09/24 documented as of this encounter
--- OUTSIDE RECORDS SUMMARY | 2025-04-27 14:45 | XMS_ITS | Encounter Summary ---
Author Organization [facility] Address [address] [place] [address] Care Team Providers Care Auto Body Man Name Role Phone Kati Colin M.D. Primary Care Provider [phone] Reason for Referral * Outpatient (Routine) - Authorized Specialty Diagnoses / Procedures Referred By Contvalentine t Referred To Contact Radiation Oncology Dona Barbosa P.A.-C., M.SGuille [address] [place] [phone] Phone: tel: fax: Ange Sawyer M.D. [address] [place] [phone] Phone: tel: fax: Referral ID Status Reason Start Date Expiration Date V isits Requested Visits Authorized [id number] Authorized 04/27/2025 10/27/2026 [address] chest prior at [facility]; please coordinate appointments with Medical Oncology visits as well (Dr. Phillip) * MRI/CAT/PET Scan (Routine) - Authorized Specialty Diagnoses / Procedures Referred By Contac t Referred To Contact Radiology Diagnoses Malignant Neoplasm Of Lung Adenocarcinoma Right (HCC) Procedures CT Chest with IV Contrast Dona Barbosa P.A.-C., M.S. [address] [place] [phone] Phone: tel: fax: [facility] Region Referral ID Status Reason Start Date Expiration Date V isits Requested Visits Authorized [id number] Authorized 04/27/2025 07/28/2026 1 1 * Outpatient (Routine) - Closed Specialty Diagnoses / Procedures Referred By Medac t Referred To Contact Radiation Oncology Ange Sawyer M.D. [address] [place] [phone] Phone: tel: fax: Ange Sawyer M.D. [address] [place] [phone] Phone: tel: fax: Referral ID Status Reason Start Date Expiration Date Visits Re quested Visits Authorized [id number] Closed 03/28/2025 09/27/2026 1 1 Reason for Visit * Outpatient (Routine) - Closed Specialty Diagnoses / Procedures Referred By Phani t Referred To Contact Radiation Oncology Ange Sawyer M.D. [address] [place] [phone] Phone: tel: fax: Ange Sawyer M.D. [address] [place] [phone] Phone: tel: fax: Referral ID Status Reason Start Date Expiration Date Visits Re quested Visits Authorized [id number] Closed 03/28/2025 09/27/2026 1 1 Encounter Details Date Type Department Care Team (Latest Contact Info) Description 04/27/2025 2:45 PM CDT - 04/28/2025 2:38 PM CDT Hospital Encounter Department of Radiation Oncology in [place], [place] [address] [place] [address] Ange Sawyer M.D. [address] [place] [address] Malignant Neoplasm Of Lung Adenocarcinoma Right (HCC) (Primary Dx) Social History Tobacco Use Types Packs/Day Years Used Date Smoking Tobacco: Former Cigarettes 0.8 94.4 0 09/29/1969 - 08/23/2018 Smokeless Tobacco: Never Comments:Quit smoking severa l times for several months Alcohol Use Standard Drinks/Week Comments Yes 1 (1 standard drink = 0.6 oz pur e alcohol) [facility] Utilities Answer Date Recorded In the past 12 months has [employer], gas, oil, or water [employer] threatened to shut off services in your [...] living situation today? I have a [facility] place to live 12/26/2024 Comments No Sex and Gender Information Value Date Recorded Sex Assigned at Female 05/07/2024 7:38 AM CDT Legal Sex Female 3:35 PM DIRECTORY COMPILER Gender Identity Female 05/07/2024 7:38 AM CDT Sexual Orientation Straight 05/07/2024 7: 38 AM CDT documented as of this encounter Last Filed Vital Signs Vital Sign Reading Time Taken Comments Blood Pressure 106/67 04/27/2025 2:51 PM CDT Pulse 91 04/27/2025 2:51 PM CDT Temperature 36.7 C (98 F) 04/27/2025 2:51 PM CDT Respiratory Rate - - Oxygen Saturation - - Inhaled Oxygen Concentration - - Weight 101 kg (223 lb 5.2 oz) 04/27/2025 2:51 PM CDT Height - - Body Mass Index 37.16 04/05/2025 7:40 PM CDT documented in this encounter Medications at [...] mouth daily. 90 tablet 3 5 vitamins A,C,Q-ibox-naakhc (PreserVision AREDS) 7,160 Units-113 mg-100 Units per tablet Take 1 tablet by mouth 2 (two) times a day. documented as of this encounter Progress Notes * Dona Barbosa P.A.-C., M.S. - 04/27/2025 3:00 PM CDT SUBJECTIVE DIAGNOSIS 1. Malignant Neoplasm Of Lung Adenocarcinoma Right (HCC) SUPERVISED BY: Ange Sawyer M.D. HISTORY OF PRESENT ILLNESS Ms. 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 She completed chemoradiotherapy on March 29, 2025. Her oncologic history is as follows: Oncology History Malignant Neoplasm Of Lung Adenocarcinoma Right (HCC) 08/2021 Other History of pulmonary adenocarcinoma diagnosed in 08/2021 in the right upper lobe (TTF1 positive) with subsequent radiation therapy in November 2021 at [facility]. 12/10/2021 - 12/20/2021 Radiation Therapy 5000 cGy in 5 fractions to the right upper lung - [facility], Dr. Eber Rodriguez. 09/06/[address] [...] ) ( Lung ) Start Date: 02/14/2025 04/26/[address] Chest, Abdomen, Pelvis IMPRESSION: 1. New right basilar pulmonary opacities, likely infectious/inflammatory process. 2. No significant interval change or finding to suggest disease progression. 3. No abdominopelvic abnormality. 04/29/2025 - Chemotherapy Afatinib Start Date: 04/29/2025 [...] received ten cycles of FOLFOX after surgery. INTERVAL HISTORY: The patient was seen and examined today with Dr. Sawyer. The patient reports experiencing worsening fatigue the week following radiation therapy, which has since improved. She is now experiencing increased shortness of breath. She reports increased shortness of breath with minimal exertion as well as occasional shortness of breath at rest. She is also having trouble sleeping due to shortness of breath. She is using oxygen 2-3L at rest, including at night, and 5-6L with activity. She reports that her oxygen saturation levels have been good; however, the feeling of shortness of breath is worse. She also reports occasional chest tightness related to the shortness of breath. She has a stable cough overall that is mostly dry, but occasional productive. She denies hemoptysis. She denies fever. She reports increased anxiety related to the shortness ofbreath and difficulty sleeping. She denies pain or difficulty swallowing. She reports good appetiteand nutritional intake and states that she is eating regular foods. REVIEW OF SYSTEMS Review of systems was negative except as documented above. OBJECTIVE BP 106/67 (BP Location: Right arm, Patient Position: Sitting, Cuff Size: Regular) Pulse 91 Temp36.7 ??C (Temporal) Wt 101 kg BMI 37.16 kg/m?? PHYSICAL EXAMINATION General: Patient is alert and oriented and in no apparent distress. She is in a wheelchair and is using supplemental oxygen via nasal cannula. The patient is here today with her daughter. Heart: Regular rate and rhythm. Lungs: Expiratory wheezes in the left lung marie, otherwise clear to auscultation bilaterally. 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 The patient has unfortunately had multiple hospitalizations since her completion of radiation therapy and last visit here. We reviewed her recent CT scan report that demonstrated no significant interval change or finding to suggest disease progression. There was new right basilar pulmonary opacities, likely infectious/inflammatory. She reports increased shortness of breath, causing difficulty sleeping, as her primary concern at this time. She met with her Pulmonary Medicine provider earlier today who discussed respiratory management recommendations including nebulizer usage, bronchial hygiene regimen, and supplemental oxygen usage. In addition, they were going to reach out to her sleep medicine provider regarding the patient's symptoms at night. Bronchoscopy with cultures was also recommended and ordered. The patient willhave continued follow-up with her Pulmonary Medicine provider regarding her respiratory symptoms. Per Dr. Marjan's last note, the plan is for the patient to next initiate afatinib. The patient is not currently scheduled for follow-up with Medical Oncology, but her daughter did say that they received a message earlier today. She was encouraged to contact Medical Oncology back for appointment scheduling. Dr. Sawyer recommends continued monitoring with a CT scan of the chest with IV contrast to be done again in 3 months. We will order for the imaging as well as a follow-up visit to be scheduled here, in coordination with Medical Oncology appointments. Dr. Sawyer also met with the patient today, please see her attestation for details. The patient will contact us with questions or concerns. She verbally expressed her understanding of the plan. EDUCATION: Ready to learn, no apparent learning barriers were identified; learning preferences include listening. Explained diagnosis and treatment plan; patient expressed understanding of the content. I personally spent 25 minutes in care of the patient today. Time includes both non face to face andface to face patient care. Signed by: Dona Barbosa P.A.-C., M.SGuille 04/27/2025 3:52 PM CDT [facility] [address] [place] [address] Cosigned by Ange Sawyer M.D. at 04/28/2025 2:38 PM CDT Associated attestation - Ange Sawyer M.D. - 04/28/2025 2:38 PM CDT I saw and evaluated the patient and participated in the means portions of the service as noted below.Please see Ms. Dona Barbosa PA-C, MS note for additional details. Ange Sawyer M.D., 04/27/2025 documented in this encounter Plan of Treatment Upcoming Encounters Date Type Department Care Team (Latest Contact Info) Description 05/04/2025 8:45 AM CDT Clinical Communication Virtual Review in [place], [place] [address] [place] [address] 05/04/2025 2:00 PM CDT Telemedicine Department of Oncology in [place], [place] [address] [phone] Antoine Phillip M.D. [address] [place] [phone] 05/05/2025 3:20 PM CDT Telemedicine Department of Oncology in [place], [place] [address] [place] [phone] Lexi Phillip APRN, C.N.P., D.N.P. [address] [place] [phone] 05/06/2025 1:10 PM CDT Comprehensive Visit Division of Gastroenterology in [place], [place] [address] [place] [phone] Kati Colin M.D. [address] [place] [phone] 05/12/2025 2:00 PM CDT Comprehensive Visit Center for Sleep Medicine in [place], [place] [address] [place] [phone] Phil Dorman D.O., M.S. [address] [place] [phone] 08/09/2025 1:30 PM DIRECTORY COMPILER Office Visit Department of Sleep Medicine in [place], [place] [address] [place] [phone] Sallie White APRN, C.N.P., D.N.P., M.S.N. [address] [phone] Scheduled Orders Name Type Priority Associated Diagnoses Orde r Schedule CT Chest with IV Contrast Imaging RAD - Routine (most inpatients and all outpatients) Malignant Neoplasm Of Lung Adenocarcinoma Right (HCC) Expected: 07/28/2025, Expires: 07/28/2026 Scheduled Procedures Name Priority Associated Diagnoses Date/Ti me BRONCHOSCOPY FLEXIBLE Chronic Obstructive Pulmonary Disease Without Exacerbation (HCC) Abnormal Computed Tomography Chest Chronic Cough 05/03/2025 12:47 PM CDT Scheduled Referrals Name Type Priority Associated Diagnoses Order Schedule Radiation Oncology office visit (clinic) Outpatient Referral Routine Once for 1 Occurrences starting 04/27/2025 until 04/27/2025 Radiation Oncology office visit (clinic) Outpatient Referral Routine Expected: 08/01/2025, Expires: 07/28/2026 documented as of this encounter Visit Diagnoses Diagnosis Malignant Neoplasm Of Lung Adenocarcinoma Right (HCC)- Primary documented in this encounter Additional Health Concerns Infection Onset Date Last Indicated Resolved Time Protective Environment 02/14/2025 02/14/202504/30 8:54 PM CDT Assessment Noted Time A fall risk assessment has been complete d for the patient 07/05/2024 4:06 PM CDT documented as of this encounter Care Teams Auto Body Man Relationship Specialty Start Date End Date Kati Colin M.D. [address] [place] [address] [place] [phone] PCP - General Family Medicine 03/09/24 documented as of this encounter
--- OUTSIDE RECORDS SUMMARY | 2025-05-02 07:30 | XMS_ITS | Encounter Summary ---
Author Organization [facility] Address [address] [place] [address] Care Team Providers Care Accounting Lecturer Name Role Phone Ktai Colin M.D. Primary Care Provider [phone] Encounter Details Date Type Department Care Team (Latest Contact Info) Description 05/02/2025 7:30 AM CDT - 05/02/2025 11:59 PM CDT Hospital Encounter Department of Laboratory Medicine in [address] [phone] Kati Colin M.D. [address] [place] [phone] Diabetes Mellitus Type 2 (HCC); Malignant Neoplasm Of Lung Adenocarcinoma Right (HCC); Abnormal Positron Emission Tomography Scan; Lymphadenopathy Gastrointestinal; Personal History Of Other Malignant Neoplasm Of Bronchus And Lung; Malignant Neoplasm Of Rectum (HCC) Discharge Disposition: Home or Self Care Social History Tobacco Use Types Packs/Day Years Used Date Smoking Tobacco: Former Cigarettes 0.8 94.4 0 09/29/1969 - 08/23/2018 Smokeless Tobacco: Never Comments:Quit smoking severa l times for several months Alcohol Use Standard Drinks/Week Comments Yes 1 (1 standard drink = 0.6 oz pur e alcohol) [facility] Utilities Answer Date Recorded In the [...] your living situation today? I have a [facility] place to live 12/26/2024 Comments No Sex and Gender Information Value Date Recorded Sex Assigned at Female 05/07/2024 7:38 AM CDT Legal Sex Female 3:35 PM REFERRAL RN Gender Identity Female 05/07/2024 7:38 AM CDT [...] mouth daily. predniSONE (Deltasone) 5 mg tabletIndications:A sthmsuresh With Chronic Obstructive Pulmonary Disease (HCC) Take [...] mouth daily. 90 tablet 3 5 vitamins A,C,D-eqcv-awunmh (PreserVision AREDS) 7,160 Units-113 mg-100 Units per tablet Take 1 tablet by mouth 2 (two) times a day. documented as of this encounter Plan of Treatment Upcoming Encounters Date Type Department Care Team (Latest Contact Info) Description 05/04/2025 8:45 AM CDT Clinical Communication Virtual Review in [place], [place] [address] [place] [phone] 05/04/2025 2:00 PM CDT Telemedicine Department of Oncology in [place], [place] [address] [place] [phone] Antoine Phillip M.D. [address] [place] [phone] 05/05/2025 3:20 PM CDT Telemedicine Department of Oncology in [place], [place] [address] [place] [phone] Lexi Phillip APRN C.N.P., D.N.P. [address] [place] [phone] 05/06/2025 1:10 PM CDT Comprehensive Visit Division of Gastroenterology in [place], [place] [address] [place] [address] Kati Colin M.D. [address] [place] [phone] 05/12/2025 2:00 PM CDT Comprehensive Visit Center for Sleep Medicine in [place], [place] [address] [place] [phone] Phil Dorman D.O., M.S. [address] [place] [phone] 08/09/2025 1:30 PM REFERRAL RN Office Visit Department of Sleep Medicine in [place], [place] [address] [place] [phone] Sallie White APRN, C.N.P., D.N.P., M.S.N. [address] [place] [phone] Pending Results Name Type Priority Associated Diagnoses Date /Time [facility] Genetics Lab Routine 05/02 7:44 AM CDT Scheduled Procedures Name Priority Associated Diagnoses Date/Ti sd BRONCHOSCOPY FLEXIBLE Chronic Obstructive Pulmonary Disease Without Exacerbation (HCC) Abnormal Computed Tomography Chest Chronic Cough 05/03/2025 12:47 PM CDT documented as of this encounter Goals Goal Patient Goal Type Associated Problems Recent Progress Patient-Stated? Author Autogenerat ed Goal Care Plan Autogenerated Problem No Deena Pineda documented as of this encounter Procedures Procedure Name Priority Date/Time Associated Diagnosis Comments MISC [facility]BRY GENETICS Routine 05/02/2025 7 :44 AM CDT MISCELLANEOUS SENT OUT LAB TEST Routine 05/02/2025 7:44 AM CDT Personal History Of Other Malignant Neoplasm Of Bronchus And Lung Malignant Neoplasm Of Rectum (HCC) HEMOGLOBIN A1C, B Routine 05/02/2025 7:4 4 AM CDT Diabetes Mellitus Type 2 (HCC) CBC WITH DIFFERENTIAL, B Routine 05/02/2025 7:43 AM CDT Malignant Neoplasm Of Lung Adenocarcinoma Right (HCC) Abnormal Positron Emission Tomography Scan Lymphadenopathy Gastrointestinal COMPREHENSIVE METABOLIC PANEL, S/P Routine 05/02/2025 7:43 AM CDT Malignant Neoplasm Of Lung Adenocarcinoma Right (HCC) Abnormal Positron Emission Tomography Scan Lymphadenopathy Gastrointestinal documented in this encounter Results * [id number] CustomNext-Cancer + RNAinsight - Miscellaneous Test (05/02/2025 7:44 AM CDT) Test Name CustomNext-Canc er + RNAinsight 05/02/2025 7:44 AM CDT FB60 Result Specimen sent out; results to follow DEFAULT 05/02/2025 7:44 AM CDT FB60 Blood (Blood, Venous) 05/02/2025 7:44 AM CDT 05/02/2025 7:44 AM CDT us Molnia Nolasco M.D. LAB MISC ORDERABLES Final Result [facility] [address] [place] [address], [facility] FB60 [facility] [place] [address] [place] [address] * (ABNORMAL) Hemoglobin A1c (05/02/2025 7:44 AM CDT) Hemoglobin A1c, B 8.0(H) 4.2 - 5.6 % 05/02/2025 11:15 AM CDT OWAT Comment: Hemoglobin A1c values greater than or equal to 6.5 percent are diagnostic for diabetes mellitus. Diagnosis should be confirmed by repeat testing. In diabetic patients, HbA1c goals should be discussed with healthcare provider. Blood (Blood, Venous) 05/02/2025 7:44 AM CDT 05/02/2025 10:29 AM CDT us Kati Colin M.D. LAB BLOOD ADD-ON Final Resul t [facility] [address], [place] [address], [facility] OWAT [facility] in [place] [address] [place] [address] * (ABNORMAL) Comprehensive Metabolic Panel (05/02/2025 7:43 AM CDT) Potassium, P 3.7 3.6 - [...] Phillip M.D. LAB BLOOD ADD-ON Final Result [facility] [address] [place] [address], [facility]AT [facility] [place] [address] [place] [phone] * (ABNORMAL) CBC with Differential, Blood (05/02/2025 [...] Phillip M.D. LAB BLOOD ADD-ON Final Result [facility] [address] [place] [address], [facility] OWAT [facility] in [place] [address] [place] [address] documented in this encounter Visit Diagnoses Diagnosis Diabetes Mellitus Type 2 (HCC) Malignant Neoplasm Of Lung Adenocarcinoma Right (HCC) Abnormal Positron Emission Tomography Scan Lymphadenopathy Gastrointestinal Personal History Of Other Malignant Neoplasm Of Bronchus And Lung Malignant Neoplasm Of Rectum (HCC) documented in this encounter Additional Health Concerns Active Problems Noted Date Diagnosed Date Autogenerated Problem 05/03/2025 Assessment Noted Time A fall risk assessment has been complete d for the patient 07/05/2024 4:06 PM CDT documented as of this encounter Care Teams Accounting Lecturer Relationship Specialty Start Date End Date Kati Colin M.D. NPArpita: [phone] [address] [place] [address] [place] [phone] PCP - General Family Medicine 03/09/24 documented as of this encounter
--- OUTSIDE RECORDS SUMMARY | 2025-05-03 10:36 | XMS_ITS | Encounter Summary ---
Author Organization [facility] Address [address] [place] [address] Care Team Providers Care Veterinary Laboratory Diagnostician Name Role Phone Kati Colin M.D. Primary Care Provider Encounter Details Date Type Department Care Team (Latest Contact Info) Description 05/03/2025 10:36 AM CDT - 05/03/2025 3:32 PM CDT Hospital Encounter [facility] OR [address] [place] [address] Yogi Ramirez M.D. [address] [place] [address] Chronic Obstructive Pulmonary Disease Without Exacerbation (HCC); Abnormal Computed Tomography Chest; Chronic Cough Discharge Disposition: Home or Self Care Social History Tobacco Use Types Packs/Day Years Used Date Smoking Tobacco: Former Cigarettes 0.8 94.4 0 09/29/1969 - 08/23/2018 Smokeless Tobacco: Never Comments:Quit smoking severa l times for several months Alcohol Use Standard Drinks/Week Comments Yes 1 (1 standard drink = 0.6 oz pur e alcohol) [facility] Utilities Answer Date Recorded In the past 12 months has [employer], gas, oil, or water company threatened to [...] your living situation today? I have a 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 Gender Identity Female 05/07/2024 7:38 AM CDT Sexual Orientation Straight 05/07/2024 7: 38 AM CDT documented as of this encounter Last Filed Vital Signs Vital Sign Reading Time Taken Comments Blood Pressure 118/62 05/03/2025 2:45 PM CDT Pulse 87 05/03/2025 3:20 PM CDT Temperature 36.7 C (98.1 F) 05/03/2025 3:15 PM CDT Respiratory Rate 22 05/03/2025 2:45 PM CDT Oxygen Saturation 99% 05/03/2025 3:20 PM CDT Inhaled Oxygen Concentration - - Weight 102 kg (224 lb 3.3 oz) 05/03/2025 12:57 P M CDT Height 165.1 cm (5' 5) 05/03/2025 11:06 AM CDT Body Mass Index 37.31 05/03/2025 11:06 AM CDT documented in this encounter Discharge Instructions * Discharge Instructions* Diann Ruiz M.S.N., R.N. - 05/03/2025 2:21 PM CDT Care After Your Bronchoscopy: After the procedure After the procedure a member of your team will let you know when you can leave. Eating Your mouth and throat stay numb for one to two hours. Do not eat or drink while your mouth and throat are numb. This helps keep food and liquids from entering your airways and lungs. You may begin to eat and drink after your mouth and throat no longer feel numb and you are able to swallow, gag, and cough normally again. Start with sips of water. If you have no problems and you can feel as you swallow, you may eat soft foods such as soup and applesauce. Add other foods when you feel comfortable. When you are able to swallow, warm water gargles and throat lozenges may help lessen discomfort. Medications Begin taking your medications as you have been told by your health care provider. Results Your primary health care provider usually discusses results with you the day after the procedure. Common Side Effects The following side effects are common: Coughing Sore throat for two to three days Small streaks of blood in your mucus, also called sputum Mild fever or rise in temperature Talk with your health care provider about these and any other side effects or risks. Some common pain relievers can affect blood thinning. Examples include aspirin, aspirin-containing products, ibuprofen products such as Advil??? and Motrin???, and naproxen such as Aleve??? and Naprosyn???. Talk with your health care provider about what you can take for pain. When to seek medical help A mild rise in temperature or a mild fever is common after your procedure. However, if your temperature continues to be higher than normal after you take the pain reliever recommended by your health care provider, call and ask to speak with your health care provider. When to call 911 Call 911 or your local emergency response telephone number, or have someone take you to an emergency department if you have: New or different chest pain. New or different breathing difficulty. Repeated coughing up of ?? cup or more of blood, or coughing up increasing amounts of blood. documented in this encounter Medications at Time [...] 5 blood-glucose meter (Accu-Chek Guide Glucose Meter) [facility] 1 Device as directed. 1 each 5 [...] ipratropium-albuter oL (DuoNeb) 0.5-2.5 mg/3 mL nebulizer solution Inhale 3 mL by nebulization 4 (four) times a day as needed for wheezing or shortness of breath. 90 mL 5 ipratropium-albuter oL (DuoNeb) 0.5-2.5 mg/3 mL [...] mouth daily. 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 30 tablet 5 5 tiZANidine (Zanaflex) 2 mg tablet Take 2 mg by mouth every 8 (eight) hours as needed for muscle spasms. 5 valsartan (Diovan) 160 mg tablet Take 0.5 tablets (80 mg total) by mouth daily. 90 tablet 3 5 vitamins A,C,E-basy-zuencb (PreserVision AREDS) 7,160 Units-113 mg-100 Units per tablet Take 1 tablet by mouth 2 (two) times a day. documented as of this encounter OR Notes * Op Note - Yogi Ramirez M.D. - 05/03/2025 1:30 PM CDT Pre-op Diagnosis Chronic Obstructive Pulmonary Disease Without Exacerbation (HCC) Abnormal Computed Tomography Chest Chronic Cough Post-op Diagnosis Chronic Obstructive Pulmonary Disease Without Exacerbation (HCC) Abnormal Computed Tomography Chest Chronic Cough Findings Very thick and tenacious mucopurulent secretions obstructing the bronchus intermedius with extension into the right middle lobe and right lower lobe bronchi and segmental bronchi. 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 The bronchoscope was then advanced beyond the vocal cords into the midtrachea where an 8.0 cuffed wire spiral endotracheal tube was placed fiberoptically and the cuff inflated. An inspection of the visible tracheobroncial tree was then completed. On the right this demonstrated a moderateamount of very tenacious and thick mucopurulent secretions that started at the bronchus intermediuswith the extension distally to the right middle lobe and right lower lobe bronchi and segmental bronchi. This was ultimately removed with double suctioned and saline irrigation and will be sent for standard cultures. Once mucoid retention has been removed there was clear evidence of severe excessive dynamic airway collapse starting at the bronchus intermedius and extending to the right middle lobe with relative sparing of the right lower lobe bronchus and segmental bronchi. The left tracheobronchial tree was uninvolved by significant mucus or dynamic airway collapse. As an initial step it would be reasonable to start the patient on multi day dosing of 3% nebulized saline followed by Aerobika to see if we can better mobilize secretions. If that is ineffective a custom stent may be necessary to maintain patency to the bronchus intermedius and right middle lobe. Of note no endobronchial lesions other than dynamic airway collapse and nothing to suggest malignancy was identified. The procedure was tolerated well and the patient was extubated and in stable condition when transferred to the recovery area. Yogi Ramirez M.D. documented in this encounter Plan of Treatment Upcoming Encounters Date Type Department Care Team (Latest Contact Info) Description 05/04/2025 8:45 AM CDT Clinical Communication Virtual Review in [place], [place] [address] [place] [address] 05/04/2025 2:00 PM CDT Telemedicine Department of Oncology in [place], [place] [address] [address] Antoine Phillip M.D. [address] [place] [phone] 05/05/2025 3:20 PM CDT Telemedicine Department of Oncology in [place], [place] [address] [place] [phone] Lexi Phillip, LOREN, C.N.P., D.N.P. [address] [place] [address] 05/06/2025 1:10 PM CDT Comprehensive Visit Division of Gastroenterology in [place], [place] [address] [place] [address] Kati Colin M.D. [address] [place] [phone] 05/12/2025 2:00 PM CDT Comprehensive Visit [facility] in [place], [place] [address] [place] [address] Phil Dorman D.O., M.S. [address] [place] [address] 08/09/2025 1:30 PM DISHTANK OPERATOR Office Visit Department of Sleep Medicine in [place], [place] [address] [place] [phone] Sallie White APRN, C.N.P., D.N.P., M.S.N. [address] [place] [phone] Pending Results Name Type Priority Associated Diagnoses Date /Time Fungal Culture, Routine Microbiology Routine Chronic Obstructive Pulmonary Disease Without Exacerbation (HCC) Abnormal Computed Tomography Chest Chronic Cough 05/03/2025 1:38 PM CDT Gram Stain Microbiology Routine Chronic Obstructive Pulmonary Disease Without Exacerbation (HCC) Abnormal Computed Tomography Chest Chronic Cough 05/03/2025 1:38 PM CDT Acid Fast Smear for Mycobacterium Microbiology Routine Chronic Obstructive Pulmonary Disease Without Exacerbation (HCC) Abnormal Computed Tomography Chest Chronic Cough 05/03/2025 1:38 PM CDT Fungal Smear Microbiology Routine Chronic Obstructive Pulmonary Disease Without Exacerbation (HCC) Abnormal Computed Tomography Chest Chronic Cough 05/03/2025 1:38 PM CDT Mycobacterial Culture Microbiology Routine Chronic Obstructive Pulmonary Disease Without Exacerbation (HCC) Abnormal Computed Tomography Chest Chronic Cough 05/03/2025 1:38 PM CDT Bacterial Culture, Aerobic + Susceptibility, Respiratory Microbiology Routine Chronic Obstructive Pulmonary Disease Without Exacerbation (HCC) Abnormal Computed Tomography Chest Chronic Cough 05/03/2025 1:38 PM CDT Scheduled Orders Name Type Priority Associated Diagnoses Orde r Schedule Fungal Culture, Routine Microbiology Routine Chronic Obstructive Pulmonary Disease Without Exacerbation (HCC) Abnormal Computed Tomography Chest Chronic Cough Release Upon Ordering for 1 Occurrences starting 05/03/2025 until 05/12/2025 Gram Stain Microbiology Routine Chronic Obstructive Pulmonary Disease Without Exacerbation (HCC) Abnormal Computed Tomography Chest Chronic Cough Release Upon Ordering for 1 Occurrences starting 05/03/2025 until 05/12/2025 Acid Fast Smear for Mycobacterium Microbiology Routine Chronic Obstructive Pulmonary Disease Without Exacerbation (HCC) Abnormal Computed Tomography Chest Chronic Cough Release Upon Ordering for 1 Occurrences starting 05/03/2025 until 05/12/2025 Fungal Smear Microbiology Routine Chronic Obstructive Pulmonary Disease Without Exacerbation (HCC) Abnormal Computed Tomography Chest Chronic Cough Release Upon Ordering for 1 Occurrences starting 05/03/2025 until 05/12/2025 Mycobacterial Culture Microbiology Routine Chronic Obstructive Pulmonary Disease Without Exacerbation (HCC) Abnormal Computed Tomography Chest Chronic Cough Release Upon Ordering for 1 Occurrences starting 05/03/2025 until 05/12/2025 Bacterial Culture, Aerobic + Susceptibility, Respiratory Microbiology Routine Chronic Obstructive Pulmonary Disease Without Exacerbation (HCC) Abnormal Computed Tomography Chest Chronic Cough Release Upon Ordering for 1 Occurrences starting 05/03/2025 until 05/12/2025 Scheduled Procedures Name Priority Associated Diagnoses Date/Ti me BRONCHOSCOPY FLEXIBLE Chronic Obstructive Pulmonary Disease Without Exacerbation (HCC) Abnormal Computed Tomography Chest Chronic Cough 05/03/2025 12:47 PM CDT documented as of this encounter Procedures Procedure Name Priority Date/Time Associated Diagnosis Comments GLUCOSE POCT, B Routine 05/03/2025 12:41 PM CDT documented in this encounter Results * (ABNORMAL) Glucose, POCT (05/03/2025 12:41 PM CDT) Glucose, POCT, B 164(H) 70 - 140 mg/dL 05/03/2025 1:00 PM CDT PCLX Site Capillary 05/03/2025 1:00 PM CDT PCLX Blood 05/03/2025 12:4 1 PM CDT 05/03/2025 1:00 PM CDT us Unknown Provider LAB POCT ORDERABLES-MANUAL Ksenia l Result POC [facility] [address] [place] [address], [facility] PCLX [facility] POC [address] [place] [address] documented in this encounter Visit Diagnoses Diagnosis Chronic Obstructive Pulmonary Disease Without Exacerbation (HCC) Abnormal Computed Tomography Chest Chronic Cough Chronic Obstructive Pulmonary Disease Without Exacerbation (HCC) Abnormal Computed Tomography Chest Chronic Cough documented in this encounter Admitting Diagnoses Diagnosis Chronic Obstructive Pulmonary Disease Without Exacerbation (HCC) Abnormal Computed Tomography Chest Chronic Cough documented in this encounter Administered Medications Inactive Administered Medications - up to 3 most recent administrations Medication Order MAR Action Action Date Dose Rate Site acetaminophen injection 1,000 mg 1,000 mg, intravenous, at 400 mL/hr, Administer over 15 Minutes, Once as needed, other, If patient has not received in previous 6 hours, Starting on Fri05/03/25 at 1230, For 1 dose, PACU (only), Oral unless RASS less than -1 or nausea/vomiting. Do not use if given in last 6 hours, Restriction Criteria (Pharmacy will review and approve if criteria met): Unable to take or tolerate medications administered via the enteral route or orally (not just NPO) acetaminophen tablet 1,000 mg (TylenoL) 1,000 mg, oral, Once as needed, other, If patient has not received in the previous 6 hours, Starting on Fri05/03/25 at 1230, For 1 dose, PACU (only), Oral unless RASS less than -1 or nausea/vomiting. Do not use if given in last 6 hours D5W infusion 1-999 mL/hr, intravenous, As needed, Medications Incompatible with 0.9% NaCL, Starting on Fri05/03/25 at 1257, Infuse at the same rate as the piggyback until tubing clears or up to a volume of 20 mL pre and post infusion for medications incompatible with 0.9% NaCL. Use 50 mL bag then discard. heparin flush 500-1,000 Units 500-1,000 Units, intra-catheter, During hospitalization, line care, Prior to discharge, Starting on Fri05/03/25 at 1257, For 1 dose, Implanted Vascular Access Device (IVAD) Venous Non-Valved: flush 5 mL (500 units) per port/lumen following saline flush prior to discharge. ipratropium-albuteroL 0.5-2.5 mg/3 mL nebulizer solution 3 mL (DuoNeb) 3 mL, nebulization, Once as needed, shortness of breath, Starting on Fri05/03/25 at 1230, For 1 dose, PACU (only) Given 05/03/2025 12:55 PM CDT 3 mL Lactated Ringer's 75 mL/hr, intravenous, Continuous, Starting on Fri05/03/25 at 1300, Pre-OpIndications:Chronic Obstructive Pulmonary Disease Without Exacerbation (HCC),Abnormal Computed Tomography Chest,Chronic Cough NaCl 0.9% infusion 1-999 mL/hr, intravenous, As needed, Between Consecutive Piggyback Medications, Starting on Fri05/03/25 at 1257, For 7 days, Infuse at the same rate as the piggyback until tubing clears or up to a volume of 20 mL. Select for IV medication administration when no maintenance IV available or when IV medications are not compatible with maintenance fluid. NaCl 0.9% infusion 1-999 mL/hr, intravenous, As needed, Post Medications (Hazardous/Low Fluid Volume), Starting on Fri05/03/25 at 1257, For 7 days, Infuse at the same rate as the medication until tubing cleared of medication, then discard. ondansetron (PF) injection 4 mg (Zofran) 4 mg, intravenous, Every 6 hours PRN, nausea, Starting on Fri05/03/25 at 1232, Pre-OpIndications:Chronic Obstructive Pulmonary Disease Without Exacerbation (HCC),Abnormal Computed Tomography Chest,Chronic Cough sodium chloride 0.9 % injection 10 mL 10 mL, intravenous, As needed, line care, Starting on Fri05/03/25 at 1232, Pre-Op, Peripheral Intravenous Catheter and Rapid Infusion Catheter, prior to blood sampling, post blood transfusion or post blood samplingIndications:Chronic Obstructive Pulmonary Disease Without Exacerbation (HCC),Abnormal Computed Tomography Chest,Chronic Cough sodium chloride 0.9 % injection 10-20 mL 10-20 mL, intravenous, During hospitalization, line care, Prior to discharge, Starting on Fri05/03/25 at 1257, For 1 dose, Implanted Vascular Access Device (IVAD) Venous Non-Valved: Flush 10 mL per port/lumen followed by heparin flush prior to discharge. sodium chloride 0.9 % injection 3 mL 3 mL, intravenous, As needed, line care, Starting on Fri05/03/25 at 1232, Pre-Op, Prior to and following infusion and between multiple consecutive infusions: sodium chloride 0.9 % injectionIndications:Chronic Obstructive Pulmonary Disease Without Exacerbation (HCC),Abnormal Computed Tomography Chest,Chronic Cough sodium chloride 0.9 % injection 3 mL 3 mL, intravenous, Every 12 hours scheduled, First dose on Fri05/03/25 at 2100, Pre-Op, Peripheral Intravenous Catheter and Rapid Infusion Catheter, when no infusion to maintain patencyIndications:Chronic Obstructive Pulmonary Disease Without Exacerbation (HCC),Abnormal Computed Tomography Chest,Chronic Cough documented in this encounter Active and Recently Administered Medications Times are shown in CDT. Scheduled Medication Order 05/01/2025 05/02/2025 05/03/2025 ipratropium-albuteroL 0.5-2.5 mg/3 mL nebulizer solution 3 mL (DuoNeb) 3 mL, nebulization, Once, On Fri05/03/25 at 1300, For 1 dose, Pre-Op 1300 (Due) sodium chloride 0.9 % injection 3 mL 3 mL, intravenous, Every 12 hours scheduled, First dose on Fri05/03/25 at 2100, Pre-Op, Peripheral Intravenous Catheter and Rapid Infusion Catheter, when no infusion to maintain patency Continuous Medication Order 05/01/2025 05/02/2025 05/03/2025 Lactated Ringer's 20 mL/hr, intravenous, Continuous, Starting on Fri05/03/25 at 1300, Pre-Op 1300 (Due) Lactated Ringer's 75 mL/hr, intravenous, Continuous, Starting on Fri05/03/25 at 1300, Pre-Op 1300 (Due) PRN Medication Order 05/01/2025 05/02/2025 05/03/2025 acetaminophen injection 1,000 mg(Linked Group 1) 1,000 mg, intravenous, at 400 mL/hr, Administer over 15 Minutes, Once as needed, other, If patient has not received in previous 6 hours, Starting on Fri05/03/25 at 1230, For 1 dose, PACU (only), Oral unless RASS less than -1 or nausea/vomiting. Do not use if given in last 6 hours, Restriction Criteria (Pharmacy will review and approve if criteria met): Unable to take or tolerate medications administered via the enteral route or orally (not just NPO) acetaminophen tablet 1,000 mg (TylenoL)(Linked Group 1) 1,000 mg, oral, Once as needed, other, If patient has not received in the previous 6 hours, Starting on Fri05/03/25 at 1230, For 1 dose, PACU (only), Oral unless RASS less than -1 or nausea/vomiting. Do not use if given in last 6 hours benzocaine 20 % external spray (Americaine) (CANCELED) As needed, Starting on Fri05/03/25 at 1324, Intra-Op 1324 (Given - Provid er: Oliver York M.D. - Comment: oropharynx) D5W infusion 1-999 mL/hr, intravenous, As needed, Medications Incompatible with 0.9% NaCL, Starting on Fri05/03/25 at 1257, Infuse at the same rate as the piggyback until tubing clears or up to a volume of 20 mL pre and post infusion for medications incompatible with 0.9% NaCL. Use 50 mL bag then discard. fentaNYL injection 25 mcg (Sublimaze) 25 mcg, intravenous, Every 2 min PRN, For pain 4 or greater (maximum 100 mcg). If max dose of Fentanyl is reached and if pain is greater than 4, discontinue Fentanyl: give Hydromorphone, Starting on Fri05/03/25 at 1230, PACU (only) heparin flush 500-1,000 Units 500-1,000 Units, intra-catheter, During hospitalization, line care, Prior to discharge, Starting on Fri05/03/25 at 1257, For 1 dose, Implanted Vascular Access Device (IVAD) Venous Non-Valved: flush 5 mL (500 units) per port/lumen following saline flush prior to discharge. HYDROmorphone (PF) injection 0.2 mg (Dilaudid) 0.2 mg, intravenous, Every 5 min PRN, moderate pain or score 4-6 of 10, severe pain or score 7-10 of 10, Starting on Fri05/03/25 at 1230, PACU (only), Up to maximum total dose of 2 mg ipratropium-albuteroL 0.5-2.5 mg/3 mL nebulizer solution 3 mL (DuoNeb) (COMPLETED) 3 mL, nebulization, Once as needed, shortness of breath, Starting on Fri05/03/25 at 1230, For 1 dose, PACU (only) 1255 (Given - Provid er: Akilah Coffman R.N.) lidocaine 10 mg/mL (1 %) injection (Xylocaine) (CANCELED) As needed, Starting on Fri05/03/25 at 1324, Intra-Op 1324 (Given - Provid er: Oliver York M.D. - Comment: oropharynx)1346 (Given - Provider: Oliver York M.D. - Comment: bronchus) NaCl 0.9% infusion 1-999 mL/hr, intravenous, As needed, Between Consecutive Piggyback Medications, Starting on Fri05/03/25 at 1257, For 7 days, Infuse at the same rate as the piggyback until tubing clears or up to a volume of 20 mL. Select for IV medication administration when no maintenance IV available or when IV medications are not compatible with maintenance fluid. NaCl 0.9% infusion 1-999 mL/hr, intravenous, As needed, Post Medications (Hazardous/Low Fluid Volume), Starting on Fri05/03/25 at 1257, For 7 days, Infuse at the same rate as the medication until tubing cleared of medication, then discard. ondansetron (PF) injection 4 mg (Zofran) 4 mg, intravenous, Every 6 hours PRN, nausea, vomiting, (If patient has not received in the previous 6 hours), Starting on Fri05/03/25 at 1230, PACU (only), Administer first. If nausea and vomiting persists, proceed with haloperidol. (order of antiemetic administration - ondansetron then haloperidol then granisetron) ondansetron (PF) injection 4 mg (Zofran) 4 mg, intravenous, Every 6 hours PRN, nausea, Starting on Fri05/03/25 at 1232, Pre-Op oxyCODONE IR tablet 5 mg (Roxicodone) 5 mg, oral, Once as needed, For pain 4 or greater, Starting on Fri05/03/25 at 1230, For 1 dose, PACU (only) sodium chloride 0.9 % injection 10 mL 10 mL, intravenous, As needed, line care, Starting on Fri05/03/25 at 1232, Pre-Op, Peripheral Intravenous Catheter and Rapid Infusion Catheter, prior to blood sampling, post blood transfusion or post blood sampling sodium chloride 0.9 % injection 10-20 mL 10-20 mL, intravenous, During hospitalization, line care, Prior to discharge, Starting on Fri05/03/25 at 1257, For 1 dose, Implanted Vascular Access Device (IVAD) Venous Non-Valved: Flush 10 mL per port/lumen followed by heparin flush prior to discharge. sodium chloride 0.9 % injection 3 mL 3 mL, intravenous, As needed, line care, Starting on Fri05/03/25 at 1232, Pre-Op, Prior to and following infusion and between multiple consecutive infusions: sodium chloride 0.9 % injection Linked Groups Order Group 1: acetaminophen tablet 1,000 mg (TylenoL)Jump to med 1,000 mg, oral, Once as needed, other, If patient has not received in the previous 6 hours, Starting on Fri05/03/25 at 1230, For 1 dose, PACU (only), Oral unless RASS less than -1 or nausea/vomiting. Do not use if given in last 6 hours Or acetaminophen injection 1,000 mgJump to med 1,000 mg, intravenous, at 400 mL/hr, Administer over 15 Minutes, Once as needed, other, If patient has not received in previous 6 hours, Starting on Fri05/03/25 at 1230, For 1 dose, PACU (only), Oral unless RASS less than -1 or nausea/vomiting. Do not use if given in last 6 hours, Restriction Criteria (Pharmacy will review and approve if criteria met): Unable to take or tolerate medications administered via the enteral route or orally (not just NPO) documented in this encounter Additional Health Concerns Assessment Noted Time A fall risk assessment has been complete d for the patient 07/05/2024 4:06 PM CDT documented as of this encounter Care Teams Veterinary Laboratory Diagnostician Relationship Specialty Start Date End Date Kati Colin M.D. [address] [place] [phone] PCP - General Family Medicine 03/09/24 documented as of this encounter
--- OUTSIDE RECORDS SUMMARY | 2025-05-03 12:40 | XMS_ITS | Encounter Summary ---
Author Organization [facility] Address [address] [place] [address] Care Team Providers Care Buildings And Grounds Supervisor Name Role Phone Kati Colin M.D. Primary Care Provider [phone] Encounter Details Date Type Department Care Team (Late st Contact Info) Description 05/03/2025 12:40 PM CDT Ancillary Procedure Department of General Surgery Arrived Social History Tobacco Use Types Packs/Day Years Used Date Smoking Tobacco: Former Cigarettes 0.8 94.4 0 09/29/1969 - 08/23/2018 Smokeless Tobacco: Never Comments:Quit smoking severa l times for several months Alcohol Use Standard Drinks/Week Comments Yes 1 (1 standard drink = 0.6 oz pur e alcohol) [facility] Utilities Answer Date Recorded In the past 12 months has [employer], gas, oil, or water [place] threatened to shut off services in your [...] your living situation today? I have a [facility] place to live 12/26/2024 Comments No Sex and Gender Information Value Date Recorded Sex Assigned at Female 05/07/2024 7:38 AM CDT Legal Sex Female 3:35 PM QUILL STRIPPER Gender Identity Female 05/07/2024 7:38 AM CDT Sexual Orientation Straight 05/07/2024 7: 38 AM CDT documented as of this encounter Plan of Treatment Upcoming Encounters Date Type Department Care Team (Latest Contact Info) Description 05/04/2025 8:45 AM CDT Clinical Communication Virtual Review in [place], [place] [address] [place] [phone] 05/04/2025 2:00 PM CDT Telemedicine Department of Oncology in [place], [place] [address] [place] [phone] Antoine Phillip M.D. [address] [place] [phone] 05/05/2025 3:20 PM CDT Telemedicine Department of Oncology in [place], [place] [address] [place] [phone] Lexi Phillip APRN, C.N.P., D.N.P. [address] [facility] [place] [phone] 05/06/2025 1:10 PM CDT Comprehensive Visit Division of Gastroenterology in [place], [place] [address] [place] [phone] Kati Colin M.D. [address] [place] [phone] 05/12/2025 2:00 PM CDT Comprehensive Visit Center for Sleep Medicine in [place], [place] [address] [place] [phone] Phil Dorman D.O., M.S. [address] [place] [phone] 08/09/2025 1:30 PM QUILL STRIPPER Office Visit Department of Sleep Medicine in [place], [place] [address] [place] [phone] Sallie White APRN, C.N.P., D.N.P., M.S.N. [address] [phone] Scheduled Procedures Name Priority Associated Diagnoses [...] Procedure Name Priority Date/Time Associated Diagnosis Comments SURGERY IMAGE EXAM Routine 05/03/2025 12 :40 PM CDT documented in this encounter Results * Surgery Image Exam-Surgery Image Exam (05/03/2025 12:40 PM CDT) 05/03/2025 12:3 9 PM CDT Narrative IIMS - 05/03/2025 2:05 PM CDT This order has been created and auto-finalized to support the import of images acquired without order. The clinical documentation to support these images can be found on the encounter that produced images. us Provider Not In System IMG NON RAD IMAGING PROCE DURES Final Result IIMS NA documented in this encounter Visit Diagnoses Not on filedocumented in this encounter Additional Health Concerns Active Problems Noted Date Diagnosed Date Autogenerated Problem 05/03/2025 Assessment Noted Time A fall risk assessment has been complete d for the patient 07/05/2024 4:06 PM CDT documented as of this encounter Care Teams Buildings And Grounds Supervisor Relationship Specialty Start Date End Date Kati Colin M.D. [address] [place] [phone] PCP - General Family Medicine 03/09/24 documented as of this encounter
--- OUTSIDE RECORDS SUMMARY | 2025-05-03 13:03 | XMS_ITS | Encounter Summary ---
Author Organization [facility] Address [address] [place] [address] Care Team Providers Care Property Claims Adjuster Name Role Phone Kati Colin M.D. Primary Care Provider Encounter Details Date Type Department Care Team (Late st Contact Info) Description 05/03/2025 1:03 PM CDT - 05/03/2025 2:29 PM CDT Surgery RST ROMB MAIN OR [address] [place] [phone] Yogi Ramirez M.D. [address] [place] [phone] BRONCHOSCOPY FLEXIBLE. Social History Tobacco Use Types Packs/Day Years Used Date Smoking Tobacco: Former Cigarettes 0.8 94.4 0 09/29/1969 - 08/23/2018 Smokeless Tobacco: Never Comments:Quit smoking severa l times for several months Alcohol Use Standard Drinks/Week Comments Yes 1 (1 standard drink = 0.6 oz pur e alcohol) [facility] Utilities Answer Date Recorded In [...] your living situation today? I have a 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 Gender Identity Female 05/07/2024 7:38 AM CDT Sexual Orientation Straight 05/07/2024 7: 38 AM CDT documented as of this encounter Last Filed Vital Signs Vital Sign Reading Time Taken Comments Blood Pressure 92/56 05/03/2025 2:15 PM CDT Pulse 95 05/03/2025 2:25 PM CDT Temperature 36.8 C (98.2 F) 05/03/2025 2:10 PM CDT Respiratory Rate 12 05/03/2025 2:25 PM CDT Oxygen Saturation 93% 05/03/2025 2:25 PM CDT Inhaled Oxygen Concentration - - Weight 102 kg (224 lb 3.3 oz) 05/03/2025 12:57 P M CDT Height 165.1 cm (5' 5) 05/03/2025 11:06 AM CDT Body Mass Index 37.31 05/03/2025 11:06 AM CDT documented in this encounter Discharge Instructions * Discharge Instructions* Diann Ruiz M.SBraulio., R.N. - 05/03/2025 2:21 PM CDT Care [...] mouth daily. predniSONE (Deltasone) 5 mg tabletIndications:[facility] With Chronic Obstructive Pulmonary Disease (HCC) Take [...] mouth daily. 90 tablet 3 5 vitamins A,C,Z-ugba-qgxnub (PreserVision AREDS) 7,160 Units-113 mg-100 Units per [...] AM CDT Clinical Communication Virtual Review in [place], [place] 200 [place] [phone] 05/04/2025 2:00 PM CDT Telemedicine Department of Oncology in [place], [place] [address] [phone] Antoine Phillip M.D. [address] [place] [phone] 05/05/2025 3:20 PM CDT Telemedicine Department of Oncology in [place], [place] [address] [place] [phone] Lexi Phillip, LOREN, C.N.P., D.N.P. [address] [place] [phone] 05/06/2025 1:10 PM CDT Comprehensive Visit Division of Gastroenterology in [place], [place] [address] [place] [phone] Kati Colin M.D. [address] [place] [phone] 05/12/2025 2:00 PM CDT Comprehensive Visit Center for Sleep Medicine in [place], [place] [address] [place] [phone] Phil Dorman D.O., M.S. 200 [place] [phone] 08/09/2025 1:30 PM MONITORING ANALYST Office Visit Department of Sleep Medicine in [place], [place] [address] [place] [phone] Sallie White APRN, Kael.N.P., D.N.P., M.S.N. [address] [place] [phone] Pending Results Name Type Priority Associated [...] LAB POCT ORDERABLES-MANUAL Ksenia l Result POC [facility] [address] [place] [address], [facility] POC [address] [place] [address] documented in this encounter Visit Diagnoses Diagnosis [...] hours benzocaine 20 % external spray (Americaine) As needed, Starting on Fri05/03/25 at 1324, Intra-Op Given 05/03/2025 1:24 PM CDT 1 Application Other D5W infusion 1-999 mL/hr, intravenous, As needed, [...] Without Exacerbation (HCC),Abnormal Computed Tomography Chest,Chronic Cough lidocaine 10 mg/mL (1 %) injection (Xylocaine) As needed, Starting on Fri05/03/25 at 1324, Intra-Op Given 05/03/2025 1:46 PM CDT 15 mL Other Given 05/03/2025 1:24 PM CDT 5 mL Ot her NaCl 0.9% infusion 1-999 mL/hr, intravenous, As [...] line care, Starting on Fri05/03/25 at 1232, Pre- Op, Peripheral Intravenous Catheter and Rapid Infusion Catheter, [...] documented as of this encounter Care Teams Property Claims Adjuster Relationship Specialty Start Date End Date Kati oClin M.D. [address] [place] [address] [place] [phone] PCP - General Family Medicine 03/09/24 documented as of this encounter
--- OUTSIDE RECORDS SUMMARY | 2025-05-03 13:18 | XMS_ITS | Encounter Summary ---
Author Organization [facility] Address [address] [place] [address] Care Team Providers Care Dolly Operator Name Role Phone Kati Colin M.D. Primary Care Provider Encounter Details Date Type Department Care Team (Late st Contact Info) Description 05/03/2025 1:18 PM CDT Anesthesia Event RST ROMB MAIN OR [address] [place] [phone] Silvano De La Cruz APRN, RORY, DNAP [address] [place] [phone] Adam Harris M.D. [address] [place] [phone] Anesthesia Record Procedure Summary Procedure Name Responsible Anesthesiologist Anesthesia Start Time Anesthesia Stop Time BRONCHOSCOPY FLEXIBLE. Dwayne De La Cruz APRN, CRNA, DNAP 05/03/25 1318 05/03/25 1408 Events Date Time Event Comment 05/03/2025 1318 An Start Machine/Equipme nt Checked Infection Precautions Followed Procedure/Site Verified NPO Status Verified Supine Standard ASA Monitors Applied 1322 An Induction 1330 Proc Start 1330 An Intubation 1331 Turnover to Proceduralist 1356 Turnover to ANE Staff 1356 Airway Removal Criteria Met 1356 Extubation/Airway Removed 1359 an stop data 1400 Proc Fin 1408 An End I completed my handoff to the receiving staff during which we 1. Identified the patient 2. Identified the responsible provider 3. Reviewed the pertinent medical history 4. Discussed the surgical course 5. Reviewed intra-op anesthesia management and issues during anesthesia 6. Set expectations for post-procedure period 7. Allowed opportunity for questions and acknowledgement of understanding. Meds Name Total lidocaine 2% (mg) injection 80 mg phenylephrine 100 mcg/mL injection 100 m cg propofol 10 mg/mL infusion 200.86 mg remimazolam (Byfavo) (RESTRICTED) 7 mg propofoL (Diprivan) injection 10 mg/mL 2 0 mg Lactated Ringers Free Drip 350 mL * Agents No agents on file. * Blood No blood administrations on file. Lines, Drains, and Airways Type Details Placement Removal Wound 01/28/25; 0907; N; 0 01/28/25; Puncture; Neck; Right; IVAD access site 01/28/25 09 by Sobia Rehman, R.N. Implanted Port Single Lumen 01/28/25; 09; Permanent (tunneled, implanted); Yes; Yes; Yes; Yes; Alcohol, Chlorhexidine (Preferred); Yes; Cap, Gloves, Gown, Large drape, Mask (Clinician), Mask (All others in room); N/A; Valved; Right; Chest; Power injectable; Sutured, Securement dressing; Dr. Salter 01/28/25 09 by Sobia Rehman, R.N. documented in this encounter Social History Tobacco Use Types Packs/Day Years Used Date Smoking Tobacco: Former Cigarettes 0.8 94.4 0 09/29/1969 - 08/23/2018 Smokeless Tobacco: Never Comments:Quit smoking severa l times for several months Alcohol Use Standard Drinks/Week Comments Yes 1 (1 standard drink = 0.6 oz pur e alcohol) [facility] Utilities Answer Date Recorded In the past 12 months has e [employer], gas, oil, or water [employer] threatened to shut off services in your [...] your living situation today? I have a [facility] place to live 12/26/2024 Comments No Sex and Gender Information Value Date Recorded Sex Assigned at Female 05/07/2024 7:38 AM CDT Legal Sex Female 3:35 PM BLOCK BREAKER OPERATOR Gender Identity Female 05/07/2024 7:38 AM CDT Sexual Orientation Straight 05/07/2024 7: 38 AM CDT documented as of this encounter OR Notes * Anesthesia Preprocedure Evaluation - Adam Harris M.D. - 05/03/2025 12:30 PM CDT Preprocedure Anesthesia & H&P Assessment Procedure Summary Date/Time: 05/03/25 1303 Procedure: BRONCHOSCOPY FLEXIBLE. Diagnosis: Chronic Obstructive Pulmonary Disease Without Exacerbation (HCC) [J44.9] Abnormal Computed Tomography Chest [R93.89] Chronic Cough [R05.3] Pre-op diagnosis: Chronic Obstructive Pulmonary Disease Without Exacerbation (HCC) [J44.9], Abnormal Computed Tomography Chest [R93.89], Chronic Cough [R05.3]. Location: [place] [address] / [facility] in [place], [place] Providers: Yogi Ramirez M.D. Pertinent components of the patient's history including current problem list, medical history, surgical history, family history, social history, medications and allergies were reviewed. Present illness and pre-op diagnosis were confirmed. The planned surgery / procedure was verified with the patient / legal guardian. 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) Other (+) Morbid Obesity Body Mass Index 40.0-44.9 Adult (HCC) OBJECTIVE PHYSICAL EXAMINATION Airway (HEENT) Mallampati: II TM Distance: >3 FB Neck ROM: Full Mouth Opening: >3 cm Upper Lip Bite Test Class: II Facies (pediatrics): normal Cardiovascular Rhythm: Regular Rate: Normal Cardiovascular Assessment: cardiovascular normal Functional Capacity: <4 METS Pulmonary Pulmonary Assessment: Diminished General / Constitutional Constitutional Assessment: Obese General State of Health:: ill appearing Neurological Neurologic Assessment: alert Dental Dental Assessment: dentition intact ASSESSMENT / PLAN ANESTHESIA PLAN ASA: 4 Anesthesia Plan: MAC Patient seen and allergies reviewed; anesthesia plan and risks discussed directly with patient / legal guardian, or through an soap slabber; patient evaluated and approved for anesthesia / sedation Risks/Benefits/Alternatives of Blood transfusion discussed with patient / legal guardian, includingan opportunity to ask questions and/or decline some or all transfusion therapies. The patient / legal guardian consented to the use of all blood products, as deemed medically necessary Approval to Proceed: approved for anesthesia documented in this encounter Plan of Treatment Upcoming Encounters Date Type Department Care Team (Latest Contact Info) Description 05/04/2025 8:45 AM CDT Clinical Communication Virtual Review in [place], [place] [address] [place] [phone] 05/04/2025 2:00 PM CDT Telemedicine Department of Oncology in [place], [place] [address] [place] [phone] Antoine Phillip M.D. [address] [place] [phone] 05/05/2025 3:20 PM CDT Telemedicine Department of Oncology in [place], [place] [address] [place] [phone] Lexi Phillip APRN, C.N.P., D.N.P. [address] [place] [phone] 05/06/2025 1:10 PM CDT Comprehensive Visit Division of Gastroenterology in [place], [place] [address] [place] [address] Kati Colin M.D. [address] [place] [phone] 05/12/2025 2:00 PM CDT Comprehensive Visit Center for Sleep Medicine in [place], [place] [address] [place] [phone] Phil Dorman D.O., M.S. [address] [place] [phone] 08/09/2025 1:30 PM BLOCK BREAKER OPERATOR Office Visit Department of Sleep Medicine in [place], [place] [address] [phone] Sallie White APRN, C.N.P., D.N.P., M.S.N. [address] [phone] Scheduled Procedures Name Priority Associated Diagnoses Date/Ti me BRONCHOSCOPY FLEXIBLE Chronic Obstructive Pulmonary Disease Without Exacerbation (HCC) Abnormal Computed Tomography Chest Chronic Cough 05/03/2025 12:47 PM CDT documented as of this encounter Goals Goal Patient Goal Type Associated Problems Recent Progress Patient-Stated? Author Autogenerat ed Goal Care Plan Autogenerated Problem No Deena Pineda documented as of this encounter Visit Diagnoses Not on filedocumented in this encounter Administered Medications Inactive Administered Medications - up to 3 most recent administrations Medication Order MAR Action Action Date Dose Rate Site Lactated Ringer's intravenous, Continuous Infusion: Per Instructions PRN, Starting on Fri05/03/25 at 1320, Anesthesia Intra-op New Bag 05/03/2025 1:20 PM CDT lidocaine (PF) (cardiac) injection intravenous, As needed, Starting on Fri05/03/25 at 1322, Anesthesia Intra-op Given 05/03/2025 1:22 PM CDT 80 mg phenylephrine injection intravenous, As needed, Starting on Fri05/03/25 at 1340, Anesthesia Intra-op Given 05/03/2025 1:40 PM CDT 100 mcg propofol 10 mg/mL infusion (Diprivan) intravenous, Continuous Infusion: Per Instructions PRN, Starting on Fri05/03/25 at 1322, Anesthesia Intra-op Rate/Dose Change 05/03/2025 1:42 PM CDT 50 mcg/kg/min 30.51 mL/hr Rate/Dose Change 05/03/2025 1:31 PM CDT 75 mcg/kg/min 45.7 65 mL/hr New Bag 05/03/2025 1:22 PM CDT 50 mcg/kg/min 30.51 mL/h r propofoL injection (Diprivan) intravenous, As needed, Starting on Fri05/03/25 at 1331, Anesthesia Intra-op Given 05/03/2025 1:31 PM CDT 20 mg remimazolam injection (Byfavo) intravenous, As needed, Starting on Fri05/03/25 at 1325, Anesthesia Intra-op Given 05/03/2025 1:43 PM CDT 1 mg Given 05/03/2025 1:30 PM CDT 2 mg Given 05/03/2025 1:26 PM CDT 2 mg documented in this encounter Additional Health Concerns Active Problems Noted Date Diagnosed Date Autogenerated Problem 05/03/2025 Assessment Noted Time A fall risk assessment has been complete d for the patient 07/05/2024 4:06 PM CDT documented as of this encounter Care Teams Dolly Operator Relationship Specialty Start Date End Date Kati Colin M.D. [address] [place] [phone] PCP - General Family Medicine 03/09/24 documented as of this encounter
--- NOTE | 2025-05-03 18:41 | ED.GENADULT ---
HPI - General Adult General Date Seen: 05/03/25 Stated complaint: De-access the port, Bronchoscopy done today Time Seen by Provider: 05/03/25 18:21 Source: patient Mode of arrival: ambulatory Limitations: no limitations History of Present Illness HPI narrative: Patient is a 69-year-old female presenting to the emergency department for DD axis of her port. She had a bronch done today and they forgot to de-access it. No other complaints. She is feeling well otherwise. Denies any symptoms at this time Related Data Home Medications ?Medication ?Instructions ?Recorded ?Confirmed albuterol sulfate 90 mcg/actuation inhalation 05/07/24 05/07/24 aerosol inhaler alendronate 10 mg tablet 10 mg PO DAILY 05/07/24 08/11/24 ammonium lactate 12 % lotion topical 05/07/24 05/07/24 dapagliflozin propanediol [Farxiga] PO 05/07/24 05/07/24 furosemide 20 mg tablet mg PO 05/07/24 05/07/24 glipizide 2.5 mg tablet, extended 2.5 mg PO DAILY 05/07/24 08/11/24 release 24 hr montelukast 10 mg tablet 10 mg PO DAILY 05/07/24 08/11/24 potassium chloride 10 mEq 10 meq PO DAILY 05/07/24 08/11/24 tablet,extended release revefenacin 175 mcg/3 mL solution 175 mcg inhalation QDAY 05/07/24 08/11/24 for nebulization ([place]) rosuvastatin 40 mg tablet 40 mg PO DAILY 05/07/24 08/11/24 valsartan 160 mg tablet mg PO 05/07/24 05/07/24 acetaminophen PO 06/21/24 cetirizine .ROUTE 06/21/24 Previous Rx's ?Medication ?Instructions ?Recorded albuterol sulfate 90 mcg/actuation 2 puff inhalation Q4-6H PRN 06/22/24 aerosol inhaler shortness of breath or wheezing #8.5 grams tizanidine 2 mg tablet 2 mg PO Q8H PRN muscle spasticity 07/13/24 #12 tabs acetaminophen 300 mg-codeine 30 mg 1 tab PO Q4-6H PRN pain #20 tabs 08/11/24 tablet prednisone 20 mg tablet 20 mg PO BID #10 tabs 10/30/24 tizanidine 2 mg tablet 2 mg PO Q8H PRN muscle spasticity 10/30/24 #20 tabs Allergies Allergy/AdvReac Type Severity Reaction Status Date / Time hydrocodone Allergy Verified 10/30/24 11:42 oxycodone Allergy Verified 10/30/24 11:42 doxycycline AdvReac Mild Diarrhea Verified 10/30/24 11:42 Review of Systems Narrative: Pertinent systems reviewed and were negative unless stated in HPI PFSH PFS Medical History (Updated 05/03/25 @ 18:44 by Christiano Smith, DO) COPD (chronic obstructive pulmonary disease) ?J44.9 - Chronic obstructive pulmonary disease, unspecified (ICD-10) Social History Smoking Status: Former smoker Do you use any of these nicotine containing products: None Second hand tobacco smoke exposure: No How often do you have a drink containing alcohol: 2-4 times a month AUDIT-C Alcohol total score: 2 Non-prescribed substance use: denies use Caffeine: Yes service: No Exam Narrative: Exam Narrative: Const: Well-nourished, Well-developed, in no distress Eyes: \no conjunctival injection, and symmetrical lids HENT: Atraumatic external nose and ears. MSK:Extremities w/o deformity Skin: Warm, Dry. No rashes or lesions. Neuro: Normal Muscle tone, No focal neurological deficits. Psych: Awake, Alert, & Oriented x3. Appropriate mood and affect. Medical Decision Making MDM Narrative Medical decision making narrative: Patient presents for De access of her port. She has no other complaints. I will order the heparin and she will be discharged Discharge Plan Discharge Clinical Impression: Port-A-Cath in place Patient Disposition: Home, Self-Care Condition: Stable Prescriptions: No Action valsartan 160 mg tablet PO glipizide 2.5 mg tablet extended release 24hr 2.5 mg PO DAILY rosuvastatin 40 mg tablet 40 mg PO DAILY montelukast 10 mg tablet 10 mg PO DAILY potassium chloride 10 mEq tablet extended release 10 meq PO DAILY furosemide 20 mg tablet PO ammonium lactate 12 % lotion topical alendronate 10 mg tablet 10 mg PO DAILY albuterol sulfate 90 mcg/actuation HFA aerosol inhaler inhalation Yupelri 175 mcg/3 mL solution for nebulization 175 mcg inhalation QDAY dapagliflozin propanediol [Farxiga] PO acetaminophen-codeine 300-30 mg tablet 1 tab PO Q4-6H PRN (Reason: pain) Qty: 20 0RF prednisone 20 mg tablet 20 mg PO BID Qty: 10 0RF tizanidine 2 mg tablet 2 mg PO Q8H PRN (Reason: muscle spasticity) Qty: 20 0RF cetirizine [Zyrtec] .ROUTE acetaminophen [Tylenol 8 Hour] PO albuterol sulfate 90 mcg/actuation HFA aerosol inhaler 2 puff inhalation Q4-6H PRN (Reason: shortness of breath or wheezing) Qty: 8.5 0RF tizanidine 2 mg tablet 2 mg PO Q8H PRN (Reason: muscle spasticity) Qty: 12 0RF Follow Up/Referrals: Kati Colin MD [Primary Care Provider, Family Practice] Stand Alone Forms: MyHealth Info Instructions
[2025-05-03 18:46] VITALS: BP 93/60; PULSE 90; RESP 20; TEMP 36.8; O2SAT 93; BMI 36.7
[2025-05-03] MEDS: HEPARIN 500 UNIT/5 ML SYRINGE IVF (18:50)
--- OUTSIDE RECORDS SUMMARY | 2025-05-03 18:51 | XMS_ITS | Encounter Summary ---
Author Organization [facility] Address [address] [place] [address] Care Team Providers Care Label Stamper Name Role Phone Kati Colin M.D. Primary Care Provider [phone] Encounter Details Date Type Department Care Team (Late st Contact Info) Description 02/18/2025 Clinical Communication Department of Infusion Therapy in [place], [place] [address], [place] [address] Maribel Leigh, R.N. Social History Tobacco Use Types Packs/Day Years Used Date Smoking Tobacco: Former Cigarettes 0.8 94.4 0 09/29/1969 - 08/23/2018 Smokeless Tobacco: Never Comments:Quit smoking severa l times for several months Alcohol Use Standard Drinks/Week Comments Yes 1 (1 standard drink = 0.6 oz pur e alcohol) [facility] Utilities Answer Date Recorded In the past 12 months has e [employer], gas, oil, or water company threatened to [...] living situation today? I have a [facility] place to live 12/26/2024 Comments No Sex and Gender Information Value Date Recorded Sex Assigned at Female 05/07/2024 7:38 AM CDT Legal Sex Female 3:35 PM SCHOOL BUS DRIVER/CUSTODIAN Gender Identity Female 05/07/2024 7:38 AM CDT Sexual Orientation Straight 05/07/2024 7: 38 AM CDT documented as of this encounter Plan of Treatment Upcoming Encounters Date Type Department Care Team (Latest Contact Info) Description 05/04/2025 8:45 AM CDT Clinical Communication Virtual Review in [place], [place] [address] [place] [address] 05/04/2025 2:00 PM CDT Telemedicine Department of Oncology in [place], [place] [address] [place] [address] Antoine Phillip M.D. [address] [place] [address] 05/05/2025 3:20 PM CDT Telemedicine Department of Oncology in [place], [place] [address] [place] [phone] Lexi Phillip APRN, C.N.P., D.N.P. [address] [place] [phone] 05/06/2025 1:10 PM CDT Comprehensive Visit Division of Gastroenterology in [place], [place] [address] [place] [address] Kati Colin M.D. [address] [place] [phone] 05/12/2025 2:00 PM CDT Comprehensive Visit Center for Sleep Medicine in [place], [place] [address] [place] [address] Phil Dorman D.O., M.S. [address] [place] [phone] 08/09/2025 1:30 PM SCHOOL BUS DRIVER/CUSTODIAN Office Visit Department of Sleep Medicine in [place], [place] [address] [place] [phone] Sallie White APRN, C.N.P., D.N.P., M.S.N. [address], [place] [phone] Scheduled Procedures Name Priority Associated Diagnoses Date/Ti [...] documented as of this encounter Care Teams Label Stamper Relationship Specialty Start Date End Date Kati Colin M.D. [address] [place] [phone] PCP - General Family Medicine 03/09/24 documented as of this encounter
--- OUTSIDE RECORDS SUMMARY | 2025-05-03 18:53 | XMS_ITS ---
Author Organization [facility] Address [address] [place] [address] Care Team Providers Care Mine Wedge Sawyer Name Role Phone Kati Colin M.D. Primary Care Provider [phone] Active Problems * This document contains information received from the source organization and may not represent a complete record from that organization. Patient Care Coordination No te Formatting of this note migh t be different from the original. [place] completed 07/05/24 for children Deena and Sakina. These are valid for life unless revoked. 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 01/14/2025 Malignant Neoplasm Of Rectum 12/31/2024 Malignant Neoplasm Of Lung Adenocarcinoma Right 12/30/2024 Cancer Staging:Clinical:Stage IIIB(cT3, cN2b, cM0) - Unsigned Shortness Of Breath 12/22/2024 Personal History Of Other Ma lignant Neoplasm Of Bronchus And Lung 12/13/2024 Nodule Pulmonary 12/13/2024 Radiation Therapy Personal History 12/13/2024 Lymphadenopathy Mediastinum 12/13/2024 Abnormal Positron Emission Tomography Scan 12/13 Failure Heart 10/11/2024 Chronic Respiratory Failure With Hypoxia Chronic Obstructive Pulmonary Disease Without Ex acerbation 08/30/2024 Assessment & Plan (04/06/2025 4:11 PM CDT): Patient presents for follow-up status post ED [...] then 1 tablet Daily for 4 days methylPREDNISolone (MedroL DosePak) 4 mg tablet; Follow package directions. Family Medicine office visit (clinic); Future Diabetes Mellitus Type 2 08/30/2024 Hyperlipidemia 08/30/2024 Osteoporosis 08/30/2024 Endarterectomy Carotid Status Post 08/30/2024 Dysfunction Diastolic 08/30/2024 Hypertension Essential Primary 08/30/2024 Closure Patent Foramen Ovale Status Post 024 Morbid Obesity Body Mass Index 40.0-44.9 Adult 1 10/31/2023 Neuropathy Peripheral 06/24/2024 Current Treatment and Therapy Plans Afatinib* Plan Start Date:04/28/2025 Plan Provider:Antoine Phillip M.D. Linked Problems Malignant Neoplasm Of Lung A denocarcinoma Right (HCC)Secondary Malignant Neoplasm Lymph Node Intrathoracic (HCC) Treatment Medications Current Day (Day 1 , Cycle 1 - Planned for 04/29/2025) Next Day (Day 1, Cycle 2 - Planned for 05/29/2025) afatinib (Gilotrif) afatinib (Gilotrif) 40 mg tablet afatinib (Gilotrif) 40 mg tablet CARBOplatin AUC 2 Weekly / PACLitaxel 50 mg/m2 ( with Radiation ) ( Lung )* Plan Start Date:02/08/2025 Plan Provider:Shannon Andre M.D. Linked Problems Malignant Neoplasm Of Lung A denocarcinoma Right (HCC) Treatment Medications CARBOplatin (Paraplatin)CARB Oplatin (Paraplatin) IVPB (BY AUC) in 250 mL (Paraplatin)PACLitaxel (TaxoL)PACLItaxeL (TaxoL) IVPB in 250 mL (TaxoL) Vascular Access Patency - Implanted Vascular Access Device (IVAD) Venous Non-Valved* Plan Start Date:02/14/2025 Plan Provider:Antoine Phillip M.D. Linked Problems Malignant Neoplasm Of Lung A denocarcinoma Right (HCC)Malignant Neoplasm Of Rectum (HCC)Secondary Malignant Neoplasm Lymph Node Intrathoracic (HCC) Treatment Medications No medications scheduled. Other Current Plans zoledronic acid (Reclast)* Plan Start Date:03/14/2025 Plan Provider:Irene Duran MPAS, P.A.-CGuille Linked Problems Osteoporosis Treatment Medications No medications scheduled. Past Treatment and Therapy Plans Flushes/Hydration Plan Name Start Date Discontinue Date Treatment Medications Discontinue Reason Plan Provider Vascular Access Patency - Peripheral Intravenous Catheter and Rapid Infusion Catheter 01/27/2025 02/14/2025 No medications scheduled. Therapy Complete Ange Sawyer M.D. Past Radiation Episodes * IMRT: Right LungOverview* First Treatment Date Last Treatment Date Treatment Site Technique Goal Episode Provider 02/14/2025 03/29/2025 Right Lung IMRT Curative * Linked Problems Malignant Neoplasm Of Lung A denocarcinoma Right Treatment Courses* Course 1xLung 02/14/2025 - 03/29/2025 Treatment Period Fraction Dose Fractions Total Dose Plans Planned [id number] 02/14/2025 - 03/29/2025 200 cGy 30 / 30 6 ,000 cGy Reference Points Delivered [id number] 02/14/2025 - 03/29/2025 6,000 cGy Lifetime Dose Tracking * Chemical Lifetime Dose Automatic Entry Manual Entr y Radiation 509.41 mGy 509.41 mGy 0 mGy Fluoro Time 18.433 minutes 18.433 minutes 0 minutes DAP (uGy-m2) 7,351.49 uGy-m2 7,351.49 uGy-m2 0 uGy-m2
--- OUTSIDE RECORDS SUMMARY | 2025-05-03 18:53 | XMS_ITS | Encounter Summary ---
Author Organization [facility] Address [address] [place] [address] Care Team Providers Care Special Education Supervisor Name Role Phone Kati Colin M.D. Primary Care Provider Reason for Visit * Reason Onset Date Comments Phone call 02/24/2025 Encounter Details Date Type Department Care Team (Late st Contact Info) Description 02/24/2025 Clinical Communication Division of Pulmonary Medicine in [place], [place] [address] [place] [phone] Margarita Martinez, LOREN, C.N.P., D.N.P. [address] [place] [phone] Phone call Social History Tobacco Use Types Packs/Day Years Used Date Smoking Tobacco: Former Cigarettes 0.8 94.4 0 09/29/1969 - 08/23/2018 Smokeless Tobacco: Never Comments:Quit smoking severa l times for several months Alcohol Use Standard Drinks/Week Comments Yes 1 (1 standard drink = 0.6 oz pur e alcohol) [facility] Utilities Answer Date Recorded In the past 12 months has [employer], gas, oil, or water company threatened [...] your living situation today? 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 I tried paging you. [phone] Thanks! documented in this encounter Plan of Treatment Upcoming Encounters Date Type Department Care Team (Latest Contact Info) Description 05/04/2025 8:45 AM CDT Clinical Communication Virtual Review in [place], [place] [address] [place] [phone] 05/04/2025 2:00 PM CDT Telemedicine Department of Oncology in [place], [place] [address] [place] [address] Antoine Phillip M.D. [address] [place] [phone] 05/05/2025 3:20 PM CDT Telemedicine Department of Oncology in [place], [place] [address] [place] [phone] Lexi Phillip APRN, C.N.P., D.N.P. [address] [place] [phone] 05/06/2025 1:10 PM CDT Comprehensive Visit Division of Gastroenterology in [place], [place] [address] [place] [phone] Kati Colin M.D. [address] [place] [phone] 05/12/2025 2:00 PM CDT Comprehensive Visit Center for Sleep Medicine in [place], [place] [address] [place] [phone] Phil Dorman D.O., M.S. [address] [place] [phone] 08/09/2025 1:30 PM TOLL TESTBOARD WORKER Office Visit Department of Sleep Medicine in [place], [place] [address] [place] [address] Sallie White APRN, C.N.P., D.N.P., M.S.N. [address] [place] [phone] Scheduled Procedures Name Priority Associated Diagnoses Date/Ti [...] documented as of this encounter Care Teams Special Education Supervisor Relationship Specialty Start Date End Date Kati Colin M.D. [address] [place] [phone] PCP - General Family Medicine 03/09/24 documented as of this encounter
--- OUTSIDE RECORDS SUMMARY | 2025-05-03 18:53 | XMS_ITS | Encounter Summary ---
Author Organization [facility] Address [address] [place] [address] Care Team Providers Care Tie Cutter Name Role Phone Kati Colin M.D. Primary Care Provider Reason for Visit * Reason Onset Date Comments Med Question 02/25/2025 Prednisolone not covered Encounter Details Date Type Department Care Team (Latest Contact Info) Description 02/25/2025 Clinical Communication Division of Pulmonary Medicine in [place], [place] [address] [place] [phone] Margarita Martinez, LOREN, C.N.P., D.N.P. [address] [place] [phone] Med Question (Prednisolone not covered) Social History Tobacco Use Types Packs/Day Years Used Date Smoking Tobacco: Former Cigarettes 0.8 94.4 0 09/29/1969 - 08/23/2018 Smokeless Tobacco: Never Comments:Quit smoking severa l times for several months Alcohol Use Standard Drinks/Week Comments Yes 1 (1 standard drink = 0.6 oz pur e alcohol) [facility] Utilities Answer Date Recorded In the past 12 months has [employer] electric, gas, oil, or water company threatened [...] your living situation today? I have a [facility] place to live 12/26/2024 Comments No Sex and Gender Information Value Date Recorded Sex Assigned at Female 05/07/2024 7:38 AM CDT Legal Sex Female 3:35 PM LOAN COLLECTOR Gender Identity Female 05/07/2024 7:38 AM CDT Sexual Orientation Straight 05/07/2024 7: 38 AM CDT documented as of this encounter Miscellaneous Notes * Telephone Encounter - Halley Huff - 02/25/2025 10:24 AM CDT Images from the original note were not included. Received a fax stating that the patient's prednisolone is not covered. I've attached the fax with the preferred alternative. documented in this encounter Plan of Treatment Upcoming Encounters Date Type Department Care Team (Latest Contact Info) Description 05/04/2025 8:45 AM CDT Clinical Communication Virtual Review in [place], [place] [address] [place] [address] 05/04/2025 2:00 PM CDT Telemedicine Department of Oncology in [place], [place] [address] [place] [address] Antoine Phillip M.D. 404 [place] [phone] 05/05/2025 3:20 PM CDT Telemedicine Department of Oncology in [place], [place] [address] [place] [phone] Lexi Phillip APRN, C.N.P., D.N.P. [address] [place] [phone] 05/06/2025 1:10 PM CDT Comprehensive Visit Division of Gastroenterology in [place], [place] [address] [place] [phone] Kati Colin M.D. [address] [place] [phone] 05/12/2025 2:00 PM CDT Comprehensive Visit Center for Sleep Medicine in [place], [place] [address] [place] [phone] Phil Dorman D.O., M.S. [address] [place] [phone] 08/09/2025 1:30 PM LOAN COLLECTOR Office Visit Department of Sleep Medicine in [place], [place] [address] [phone] Sallie White APRN, C.N.P., D.N.P., M.S.N. 0 [place] [phone] Scheduled Procedures Name Priority Associated Diagnoses Date/Ti [...] documented as of this encounter Care Teams Tie Cutter Relationship Specialty Start Date End Date Kati Colin M.D. [address] [place] [address] [place] [phone] PCP - General Family Medicine 03/09/24 documented as of this encounter
--- OUTSIDE RECORDS SUMMARY | 2025-05-03 18:53 | XMS_ITS | Patient Health Record ---
Author Organization [facility] Address [address] [place], [place] [address] Care Team Providers Care Product Safety Test Engineer Name Role Phone Vu Cline MD Primary Care Provider Unavaila Lance Sin Unavailable [phone] Allergies Allergen (clinical drug ingredient) Drug/Non Drug Allergy documented on EMR Reaction Allergy Type Onset Date Status hydrocodone Hydrocodone Unknown Drug Allergy Act lori oxycodone Oxycodone Unknown Drug Allergy Active Reason For Referral No Information Medications Medication SIG (Take, Route, Frequency, Duration) Notes Start Date End Date Status Azithromycin Active Gabapentin Not-Takin g Fluticasone-Salmeterol Active Rosuvastatin Calcium Active metFORMIN HCl Active Montelukast Sodium A ctive Enoxaparin Sodium Ac tive hydroCHLOROthiazide Active Social History Tobacco Use: Social History Observation Description Date Details (start date - stop date) Former Smoker NA - NA Tobacco Use/Smoking Question Answer Notes Are you a former smoker Alcohol Screen (Audit-C) Question Answer Notes Did you have a drink containing alcohol in the p ast year? No Points 0 Interpretation Negative Problems Problem Type SNOMED Code ICD Code Onset Dates Problem Status W/U Status Risk Notes Problem Type I diabetes mellitus without complication (991473185) Type 1 diabetes mellitus without complications (E10.9) Active confirmed Problem Mixed hyperlipidemia (542601500) Mixed hyperlipidemia (E78.2) Active confirmed Problem Essential hypertension (40672997) Essential (primary) hypertension (I10) Active confirmed Problem Chronic obstructive pulmonary disease (97519010) Chronic obstructive pulmonary disease, unspecified (J44.9) Active confirmed Problem Osteoarthritis of knee (333194517) Unilateral primary osteoarthritis, left knee (M17.12) Active confirmed Problem Localized, primary osteoarthritis of the shoulder region (102335887) Primary osteoarthritis, right shoulder (M19.011) Active confirmed Problem Open fracture of femur (42139153) Unspecified fracture of left femur, initial encounter for open fracture type I or II (S72.92XB) Active confirmed Plan Of Treatment No Information Insurance Providers Payer Name Payer Address Payer Phone Subscriber Number Group Number Insured Name Patient Relationship to Insured Coverage Start Date Coverage End Date [facility] [address] [address] [place] [address] [id number] Martínjillian Luz Self - patient is the insured 0 Medical (General) History Medical History History ICD Code Osteoarthritis Lung/rectal cancer COPD Diabetes Diverticulosis GERD Hypertension Hyperlipidemia Primary osteoarthritis, right shoulder M 19.011 Unilateral primary osteoarthritis, left knee M17.12 Surgical History Surgery Date(Month/Year) Cataract surgery 2005 Rt TKA 2004 Spinal surgery 2007 Tonsillectomy 1960 Rt lung lobectomy 2012 Rt carotid endarterectomy with patch ang ioplasty 2008 Lt hip ORIF 10/17/2020 Rt ankle reconstruction 1969
--- OUTSIDE RECORDS SUMMARY | 2025-05-03 18:53 | XMS_ITS | Encounter Summary ---
Author Organization [facility] Address [address] [place] [address] Care Team Providers Care Color Tester Name Role Phone Kati Colin M.D. Primary Care Provider Encounter Details Date Type Department Care Team (Late st Contact Info) Description 02/22/2025 Clinical Communication Department of Infusion Therapy in [place], [place] [address] [phone] Bernice Robertson, R.N. [address] [phone] Social History Tobacco Use Types Packs/Day Years Used Date Smoking Tobacco: Former Cigarettes 0.8 94.4 0 09/29/1969 - 08/23/2018 Smokeless Tobacco: Never Comments:Quit smoking severa l times for several months Alcohol Use Standard Drinks/Week Comments Yes 1 (1 standard drink = 0.6 oz pur e alcohol) [facility] Utilities Answer Date Recorded In the [...] your living situation today? I have a [facility] place to live 12/26/2024 Comments No Sex and Gender Information Value Date Recorded Sex Assigned at Female 05/07/2024 7:38 AM CDT Legal Sex Female 3:35 PM PHYSICIAN/ALLERGY/IMMUNOLOGY Gender Identity Female 05/07/2024 7:38 AM CDT Sexual Orientation Straight 05/07/2024 7: 38 AM CDT documented as of this encounter Miscellaneous Notes * Telephone Encounter - Bernice Robertson, R.N. - 02/22/2025 11:18 AM CDT Please call patient that is in Dr Phillip's schedule on 02/24 at 1:40 to see if that patient can move to 03/02/25 at 0825 check in time? If this is possible please switch Luz and that patient appt with Dr Phillip. To better align with treatment. More orders are signed so please schedule labs and treatment. Thanks, Bernice, RN documented in this encounter Plan of Treatment Upcoming Encounters Date Type Department Care Team (Latest Contact Info) Description 05/04/2025 8:45 AM CDT Clinical Communication Virtual Review in [place], [place] [address] [place] [address] 05/04/2025 2:00 PM CDT Telemedicine Department of Oncology in [place], [place] [address], [place] [phone] Antoine Phillip M.D. [address] [place] [phone] 05/05/2025 3:20 PM CDT Telemedicine Department of Oncology in [place], [place] [address] [place] [phone] Lexi Phillip APRN, CGuilleNGuilleP., D.N.P. [address] [place] [phone] 05/06/2025 1:10 PM CDT Comprehensive Visit Division of Gastroenterology in [place], [place] [address] [place] [phone] Kati Colin M.D. [address] [place] [phone] 05/12/2025 2:00 PM CDT Comprehensive Visit Center for Sleep Medicine in [place], [place] [address] [place] [phone] Phil Dorman D.O., M.S. [address] [place] [phone] 08/09/2025 1:30 PM PHYSICIAN/ALLERGY/IMMUNOLOGY Office Visit Department of Sleep Medicine in [place], [place] [address] [place] [phone] Sallie White APRN, C.N.P., D.N.P., M.S.N. [address] [place] [phone] Scheduled Procedures Name Priority Associated Diagnoses Date/Ti [...] documented as of this encounter Care Teams Color Tester Relationship Specialty Start Date End Date Kati Colin M.D. [address] [place] [phone] PCP - General Family Medicine 03/09/24 documented as of this encounter
--- OUTSIDE RECORDS SUMMARY | 2025-05-03 18:54 | XMS_ITS | Encounter Summary ---
Author Organization [facility] Address [address] [place] [address] Care Team Providers Care Foot Press Operator Name Role Phone Kati Colin M.D. Primary Care Provider [phone] Reason for Referral * Outpatient (Routine) - Authorized Specialty Diagnoses / Procedures Referred By Phani cruz Referred To Contact Sleep Medicine Diagnoses Chronic Obstructive Pulmonary Disease Without Exacerbation (HCC) Apnea Sleep Obstructive Malignant Neoplasm Of Lung Adenocarcinoma Right (HCC) Margarita Martinez APRN C.N.P., D.N.P. [address] [place] [address] Phone: tel: fax: [facility] Referral ID Status Reason Start Date Expiration Date Visits Requested Visits Authorized [id number] Authorized Specialty Services Required 05/02/2025 11/01/2026 1 1 Encounter Details Date Type Department Care Team (Late st Contact Info) Description 05/02/2025 Orders Only Division of Pulmonary Medicine in [place], [place] [address] [place] [phone] Margarita Martinez APRN, C.N.P., D.N.P. [address] [place] [address] Chronic Obstructive Pulmonary Disease Without Exacerbation (HCC) (Primary Dx); Apnea Sleep Obstructive; Malignant Neoplasm Of Lung Adenocarcinoma Right (HCC) Social History Tobacco Use Types Packs/Day Years Used Date Smoking Tobacco: Former Cigarettes 0.8 94.4 0 09/29/1969 - 08/23/2018 Smokeless Tobacco: Never Comments:Quit smoking severa l times for several months Alcohol Use Standard Drinks/Week Comments Yes 1 (1 standard drink = 0.6 oz pur e alcohol) [facility] Utilities Answer Date Recorded In the past 12 months has e [employer], gas, oil, or water [employer] threatened to shut off services in your [...] AM CDT Legal Sex Female 3:35 PM DISPATCHER SHIP PILOT Gender Identity Female 05/07/2024 7:38 AM CDT Sexual Orientation Straight 05/07/2024 7: 38 AM CDT documented as of this encounter Plan of Treatment Upcoming Encounters Date Type Department Care Team (Latest Contact Info) Description 05/04/2025 8:45 AM CDT Clinical Communication Virtual Review in [place], [place] [address] [place] [phone] 05/04/2025 2:00 PM CDT Telemedicine Department of Oncology in [place], [place] [address] [place] [phone] Antoine Phillip M.D. [address] [place] [phone] 05/05/2025 3:20 PM CDT Telemedicine Department of Oncology in [place], [place] [address] [place] [phone] Lexi Phillip APRN, C.N.P., D.N.P. [address] [place] [phone] 05/06/2025 1:10 PM CDT Comprehensive Visit Division of Gastroenterology in [place], [place] [address] [place] [phone] Kati Colin M.D. [address] [place] [phone] 05/12/2025 2:00 PM CDT Comprehensive Visit Center for Sleep Medicine in [place], [place] [address] [place] [phone] Phil Dorman D.O., M.S. [address] [place] [address] 08/09/2025 1:30 PM DISPATCHER SHIP PILOT Office Visit Department of Sleep Medicine in [place], [place] [address] [place] [phone] Sallie White APRN, C.N.P., D.N.P., M.S.N. [address] [place] [phone] Scheduled Procedures Name Priority Associated Diagnoses Date/Ti me BRONCHOSCOPY FLEXIBLE Chronic Obstructive Pulmonary Disease Without Exacerbation (HCC) Abnormal Computed Tomography Chest Chronic Cough 05/03/2025 12:47 PM CDT Scheduled Referrals Name Type Priority Associated Diagnoses Orde r Schedule Sleep Medicine - General consult (clinic) Outpatient Referral Routine Chronic Obstructive Pulmonary Disease Without Exacerbation (HCC) Apnea Sleep Obstructive Malignant Neoplasm Of Lung Adenocarcinoma Right (HCC) Expected: 05/02/2025, Expires: 08/02/2026 documented as of this encounter Goals Goal Patient Goal Type Associated Problems Recent Progress Patient-Stated? Author Autogenerat ed Goal Care Plan Autogenerated Problem No Deena Pineda documented as of this encounter Visit Diagnoses Diagnosis Chronic Obstructive Pulmonary Disease Without Exacerbation (HCC)- Primary Apnea Sleep Obstructive Malignant Neoplasm Of Lung Adenocarcinoma Right (HCC) documented in this encounter Additional Health Concerns Active Problems Noted Date Diagnosed Date Autogenerated Problem 05/03/2025 Assessment Noted Time A fall risk assessment has been complete d for the patient 07/05/2024 4:06 PM CDT documented as of this encounter Care Teams Foot Press Operator Relationship Specialty Start Date End Date Kati Colin M.D. [address] [place] [phone] PCP - General Family Medicine 03/09/24 documented as of this encounter
--- OUTSIDE RECORDS SUMMARY | 2025-05-03 18:54 | XMS_ITS | Encounter Summary ---
Author Organization [facility] Address [address] [place] [address] Care Team Providers Care Boiler Erector Name Role Phone Kati Colin M.D. Primary Care Provider [phone] Encounter Details Date Type Department Care Team (Late st Contact Info) Description 05/02/2025 Results Follow-Up Department of Family Medicine, [facility], in [place] [address] [place] [phone] Trina Maldonado, LGuilleP.N. Hemoglobin A1c Social History Tobacco Use Types Packs/Day Years Used Date Smoking Tobacco: Former Cigarettes 0.8 94.4 0 09/29/1969 - 08/23/2018 Smokeless Tobacco: Never Comments:Quit smoking severa l times for several months Alcohol Use Standard Drinks/Week Comments Yes 1 (1 standard drink = 0.6 oz pur e alcohol) [facility] Utilities Answer Date Recorded In the [...] your living situation today? 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 [address] [place] [phone] 05/05/2025 3:20 PM CDT Telemedicine Department of Oncology in [place], [place] [address] [place] [phone] Lexi Phillip APRN, C.N.P., D.N.P. [address] [place] [phone] 05/06/2025 1:10 PM CDT Comprehensive Visit Division of Gastroenterology in [place], [place] [address] [place] [phone] Kati Colin M.D. [address] [place] [phone] 05/12/2025 2:00 PM CDT Comprehensive Visit Center [facility] in [place], [place] [address] [place] [address] Phil Dorman D.O., M.S. [address] [place] [phone] 08/09/2025 1:30 PM DRAIN TILE MACHINE OPERATOR Office Visit Department of Sleep Medicine in [place], [place] [address] [place] [phone] Sallie White APRN, C.N.P., D.N.P., M.S.N. [address] [place] [phone] Scheduled Procedures Name Priority Associated Diagnoses Date/Ti [...] documented as of this encounter Care Teams Boiler Erector Relationship Specialty Start Date End Date Kati Colin M.D. [address] [place] [phone] PCP - General Family Medicine 03/09/24 documented as of this encounter
--- OUTSIDE RECORDS SUMMARY | 2025-05-03 18:54 | XMS_ITS | Clinical Summary ---
Author Organization [facility] Address [address] [place] [address] Care Team Providers Care Serologist Name Role Phone Kati Colin M.D. Primary Care Provider Source Comments Patient records contain information from all sites at [facility]. For routine questions regarding patient records, call [phone] during business hours, M-F 8:00 AM - 5:00 PM Central Time. Record requests for emergency care only can be directed to [phone] at any time.[facility] Allergies Active Allergy Reactions Criticality Noted Date Comments Doxycycline Diarrhea 01/14/2024 Hydrocodone Itching,Rash Low 05/30/2010 Medications * This document contains information received from the source organization and may not represent a complete record from that organization. diclofenac sodium (Voltaren) 1 % gel Apply 2 g topically 4 (four) times a day as needed. 023 Active vitamins A,C,N-bgam-bfxcck (PreserVision AREDS) 7,160 Units-113 mg-100 Units per tablet Take 1 tablet by mouth 2 (two) times a day. Active potassium chloride 10 mEq ER tablet Take 1 tablet by mouth daily. 024 Active rosuvastatin (Crestor) 40 mg tablet Take 1 tablet by mouth at bedtime. Active cetirizine (ZyrTEC) 10 mg tablet Take 10 mg by mouth every morning. Active dapagliflozin propanediol (Farxiga) 5 mg tablet Take 5 mg by mouth daily. Active ammonium lactate (Lac-Hydrin) 12 % lotion Apply 1 Application topically 2 (two) times a day. Active DME Oxygen 3 L by continuous inhalation route daily. Active B complex-vitamin (Super B-50) capsule Take 1 capsule by mouth daily. Active ferrous sulfate 324 mg (65 mg iron) DR tablet Take 65 mg of iron by mouth daily. Active multivitamin tablet Take 1 tablet by mouth daily. Active acetaminophen (TylenoL 8 Hr) 650 mg ER tablet Take 1,300 mg by mouth 2 (two) times a day. Active DME OxygenIndications :Chronic Obstructive Pulmonary Disease Without Exacerbation (HCC) DME Order - for details see Order Report 1 each Active montelukast (Singulair) 10 mg tablet take 1 tablet by mouth daily 90 tablet 3 024 Active albuterol 90 mcg/actuation inhaler Inhale 2 puffs every 6 (six) hours as needed for wheezing. 18 g 3 024 Active revefenacin (Yupelri) 175 mcg/3 mL solution for nebulization nebulizer solutionIndicatio ns:Chronic Obstructive Pulmonary Disease Without Exacerbation (HCC) Inhale 3 mL (0.175 mg total) by nebulization daily. 270 mL 3 024 Active formoterol (Perforomist) 20 mcg/2 mL nebulizer solutionIndicatio ns:Chronic Obstructive Pulmonary Disease Without Exacerbation (HCC) Inhale 2 mL (20 mcg total) by nebulization 2 (two) times a day. 360 mL 3 024 Active dextromethorphan- guaiFENesin (Robitussin-DM) 10-100 mg/5 mL syrup Take 5 mL by mouth every 4 (four) hours as needed for cough. 235 mL 3 025 Active tiZANidine (Zanaflex) 2 mg tablet Take 2 mg by mouth every 8 (eight) hours as needed for muscle spasms. Active lidocaine (Lidoderm) 5 % adhesive patch,medicatedIn dications:Pain Back Place 1 patch on the skin daily. Apply to back daily. Keep patch on for 12 hours and take off for 12 hours. 30 patch 1 025 Active ensifentrine (Ohtuvayre) 3 mg/2.5 mL suspension for nebulizationIndic ations:Chronic Obstructive Pulmonary Disease Without Exacerbation (HCC) Inhale 3 mg 2 (two) times a day. 150 mL 11 025 Active alendronate (Fosamax) 10 mg tablet Take 1 tablet (10 mg total) by mouth daily before morning meal. 90 tablet 3 025 Active Additional Information Patient not taking.Reported on 04/27/2025 budesonide (Pulmicort) 1 mg/2 mL nebulizer solutionIndicatio ns:Asthma With Chronic Obstructive Pulmonary Disease (HCC) Inhale 2 mL (1 mg total) by nebulization 2 (two) times a day. Rinse mouth with water after use to reduce aftertaste and incidence of candidiasis. Do not swallow. 120 mL 11 025 Active cholecalciferol, vitamin D3, (VITAMIN D3 ORAL) Take 2 gummies by mouth daily. Patient unsure of strength Active valsartan (Diovan) 160 mg tablet Take 0.5 tablets (80 mg total) by mouth daily. 90 tablet 3 025 Active DME OxygenIndications :Chronic Obstructive Pulmonary Disease Without Exacerbation (HCC),Chronic Respiratory Failure With Hypoxia (HCC) DME Order - for details see Order Report 1 each 025 Active ipratropium-albut Justine (DuoNeb) 0.5-2.5 mg/3 mL nebulizer solution Inhale 3 mL by nebulization 4 (four) times a day as needed for wheezing or shortness of breath. 90 mL 025 Active Additional Information Patient not taking.Reported on 04/27/2025 DME OxygenIndications :Chronic Obstructive Pulmonary Disease Without Exacerbation (HCC),Chronic Respiratory Failure With Hypoxia (HCC) DME Order - for details see Order Report 1 each 025 Active acetaminophen-cod eine (TylenoL #3) 300-30 mg per tablet Take 1 tablet by mouth every 4 (four) hours as needed. 025 Active glipiZIDE (GlucotroL XL) 2.5 mg 24 hr tablet TAKE 1 TABLET EVERY DAY WITH BREAKFAST 90 tablet 3 025 Active prochlorperazine (Compazine) 10 mg tabletIndications :Malignant Neoplasm Of Lung Adenocarcinoma Right (HCC) Take 1 tablet (10 mg total) by mouth every 6 (six) hours as needed for nausea or vomiting. 30 tablet 3 025 2025 Active ondansetron (Zofran) 8 mg tabletIndications :Malignant Neoplasm Of Lung Adenocarcinoma Right (HCC) Take 1 tablet (8 mg total) by mouth every 8 (eight) hours as needed for nausea or vomiting (unrelieved by prochlorperazin e). 30 tablet 3 025 2025 Active OLANZapine (ZyPREXA) 5 mg tabletIndications :Malignant Neoplasm Of Lung Adenocarcinoma Right (HCC) Take 1 tablet (5 mg total) by mouth at bedtime as needed (nausea, vomiting). May take dose early if needed. 30 tablet 3 2025 Active sulfamethoxazole- trimethoprim (Bactrim) 400-80 mg per tabletIndications :Asthma With Chronic Obstructive Pulmonary Disease (HCC),Malignant Neoplasm Of Lung Adenocarcinoma Right (HCC) Take 1 tablet by mouth daily. 30 tablet 5 Active predniSONE (Deltasone) 5 mg tablet Take 5 mg by mouth daily. Active omeprazole (PriLOSEC) [address] capsule Take 1 capsule (20 mg total) by mouth daily before morning meal. 90 capsule 025 Active acetaminophen-cod eine (TylenoL #3) 300-30 mg per tabletIndications :Chronic Pain/Nonacute Pain Take 1-2 tablets by mouth every 6 (six) hours as needed for pain Indications: Chronic Pain/Nonacute Pain. 90 tablet 025 Active diphenhydramine, lidocaine 2%, nystatin, antacid (mw)Indications:M alignant Neoplasm Of Lung Adenocarcinoma Right (HCC) Take 5-10 mL by mouth 4 (four) times a day after meals and bedtime. Hold in mouth for 1 minute.Do not eat or drink for 15-30 minutes after use. You may swallow to help with throat discomfort. 240 mL 11 025 Active ondansetron ODT (Zofran-ODT) 4 mg disintegrating tablet Dissolve 4 mg in the mouth 3 (three) times a day as needed. 025 Active blood sugar diagnostic strips (Accu-Chek Guide test strips) 1 test daily. 100 each Active blood-glucose meter (Accu-Chek Guide Glucose Meter) misc 1 Device as directed. 1 each 025 Active lancets 4 each 4 (four) times a day as needed (Diabetes). 100 each 025 Active albuterol 2.5 mg /3 mL nebulizer solutionIndicatio ns:Asthma With Chronic Obstructive Pulmonary Disease (HCC),Abnormal Computed Tomography Chest,Chronic Cough Inhale 3 mL (2.5 mg total) by nebulization every 6 (six) hours as needed for wheezing or shortness of breath. 360 mL 025 Active sodium chloride (NebuSaL) 3 % nebulizer solutionIndicatio ns:Asthma With Chronic Obstructive Pulmonary Disease (HCC),Abnormal Computed Tomography Chest,Chronic Cough Inhale 4 mL by nebulization 3 (three) times a day. 360 mL 025 Active hydrOXYzine (Atarax) 10 mg tablet Take 1 tablet (10 mg total) by mouth 4 (four) times a day as needed for anxiety. 30 tablet 1 025 Active ipratropium-albut Justine (DuoNeb) 0.5-2.5 mg/3 mL nebulizer solutionIndicatio ns:Chronic Obstructive Pulmonary Disease Without Exacerbation (HCC) Inhale 3 mL by nebulization 4 (four) times a day as needed for wheezing or shortness of breath. 1080 mL 025 Active furosemide (Lasix) 20 mg tablet Take 1 tablet (20 mg total) by mouth daily. 90 tablet 3 025 Active predniSONE (Deltasone) 5 mg tabletIndications :Asthma With Chronic Obstructive Pulmonary Disease (HCC) Take 1 tablet (5 mg total) by mouth daily. 30 tablet 025 Active furosemide (Lasix) 20 mg tablet Take 1 tablet (20 mg total) by mouth daily. M, W, F 90 tablet 3 024 2024 Discontinued(R eorder) azithromycin (Zithromax) 500 mg tablet 500 mg daily on M, W, F 36 tablet 3 024 2024 Discontinued predniSONE (Deltasone) 5 mg tabletIndications :Asthma With Chronic Obstructive Pulmonary Disease (HCC) Take 1 tablet (5 mg total) by mouth daily. 30 tablet 11 025 2024 Discontinued(R eorder) levoFLOXacin (Levaquin) 750 mg tablet Take 750 mg by mouth. 025 2024 Discontinued azithromycin (Zithromax Z-Jerson) 250 mg tabletIndications :Chronic Obstructive Pulmonary Disease Without Exacerbation (HCC) 2 tablets (500 mg) once and then 1 tablet Daily for 4 days 6 tablet 2024 Discontinued methylPREDNISolon e (MedroL DosePak) 4 mg tabletIndications :Chronic Obstructive Pulmonary Disease Without Exacerbation (HCC) Follow package directions. 21 tablet 025 2024 Discontinued ipratropium-albut Justine (DuoNeb) 0.5-2.5 mg/3 mL nebulizer solutionIndicatio ns:Chronic Obstructive Pulmonary Disease Without Exacerbation (HCC) Inhale 3 mL by nebulization 4 (four) times a day as needed for wheezing or shortness of breath. 1080 mL 2024 Discontinued(R eorder) dupilumab (Dupixent Pen) 300 mg/2 mL injectionIndicati ons:Asthma With Chronic Obstructive Pulmonary Disease (HCC),Corticoster oid Treatment Custodial Systemic Inject 2 mL (300 mg total) under the skin every 14 (fourteen) days. 4 mL 11 025 2024 Discontinued predniSONE (Deltasone) 20 mg tablet Take 40 mg by mouth. 025 2024 Active Problems Patient Care Coordination No te Formatting of this note migh t be different from the original. [place] completed 07/05/24 for children Deena and Sakina. These are valid for life unless revoked. Problem Noted Date Diagnosed Date Abnormal Computed Tomography Chest 04/27/2025 Chronic Cough 04/27/2025 Lymphadenopathy Gastrointestinal 03/29/2025 Anemia Chemotherapy Induced 03/29/2025 Insufficiency Renal 03/29/2025 Other Custodial Current Drug Therapy 02/10/2025 Secondary Malignant Neoplasm [...] Heart 10/11/2024 Chronic Respiratory Failure With Hypoxia 024 Chronic Obstructive Pulmonary Disease Without Ex acerbation [...] organization. Date Type Department Care Team Description 05/03/2025 1:18 PM CDT Anesthesia Event [facility] [address] [place] [phone] Silvano De La Cruz, INSURANCE CLAIMS ADJUSTER, MATERIAL CONTROLLER, DNAP Adam Harris M.D. 05/03/2025 1:03 PM CDT - 05/03/2025 2:29 PM CDT Surgery [facility] [address] [place] [phone] Yogi Ramirez M.D. BRONCHOSCOPY FLEXIBLE. 05/03/2025 12:40 PM CDT Ancillary Procedure Department of General Surgery Arrived 05/03/2025 10:36 AM CDT - 05/03/2025 3:32 PM CDT Hospital Encounter [facility] [address] [place] [phone] Yogi Ramirez M.D. Chronic Obstructive Pulmonary Disease Without Exacerbation (HCC); Abnormal Computed Tomography Chest; Chronic Cough Discharge Disposition: Home or Self Care 05/02/2025 7:30 AM CDT - 05/02/2025 11:59 PM CDT Hospital Encounter Department of Laboratory Medicine in [address] [phone] Kati Colin M.D. Diabetes Mellitus Type 2 (HCC); Malignant Neoplasm Of Lung Adenocarcinoma Right (HCC); Abnormal Positron Emission Tomography Scan; Lymphadenopathy Gastrointestinal; Personal History Of Other Malignant Neoplasm Of Bronchus And Lung; Malignant Neoplasm Of Rectum (HCC) Discharge Disposition: Home or Self Care 05/02/2025 Results Follow-Up Department of Family Medicine, [facility], in [place], [place] [address] [place] [address] Trina Maldonado L.P.N. Hemoglobin A1c 05/02/2025 Orders Only Division of Pulmonary Medicine in [place], [place] [address] [place] [phone] Margarita Martinez APRN, C.N.P., D.N.P. Chronic Obstructive Pulmonary Disease Without Exacerbation (HCC) (Primary Dx); Apnea Sleep Obstructive; Malignant Neoplasm Of Lung Adenocarcinoma Right (HCC) 04/27/2025 2:45 PM CDT - 04/28/2025 2:38 PM CDT Hospital Encounter Department of Radiation Oncology in [place], [place] [address] [place] [address] Ange Sawyer M.D. Malignant Neoplasm Of Lung Adenocarcinoma Right (HCC) (Primary Dx) 04/27/2025 11:00 AM CDT Telemedicine Division of Pulmonary Medicine in [place], [place] [address] [place] [address] Margarita Martinez, LOREN, C.N.P., D.N.P. Chronic Obstructive Pulmonary Disease Without Exacerbation (HCC) (Primary Dx); Corticosteroid Treatment Explosive Specialist Systemic; Abnormal Computed Tomography Chest; Chronic Cough 04/26/2025 1:00 PM CDT Infusion Department of Infusion Therapy in [place], [place] [address] [place] [address] Antoine Phillip M.D. Malignant Neoplasm Of Lung Adenocarcinoma Right (HCC) (Primary Dx); Malignant Neoplasm Of Rectum (HCC); Secondary Malignant Neoplasm Lymph Node Intrathoracic (HCC) 04/26/2025 10:22 AM CDT - 04/26/2025 11:59 PM CDT Hospital Encounter Department of Radiology in [place], [place] [address] [place] [address] Ange Sawyer M.D. Malignant Neoplasm Of Rectum (HCC) (Primary Dx); Malignant Neoplasm Of Lung Adenocarcinoma Right (HCC); Abnormal Positron Emission Tomography Scan; Lymphadenopathy Gastrointestinal; Secondary Malignant Neoplasm Lymph Node Intrathoracic (HCC) Discharge Disposition: Home or Self Care 04/26/2025 Orders Only Department of Infusion Therapy in [place], [place] [address] [place] [address] Jaret Clifford R.N. Malignant Neoplasm Of Rectum (HCC) (Primary Dx) 04/25/2025 Clinical Communication Division of Pulmonary Medicine in [place], [place] [address] [place] [phone] Margarita Martinez APRN, C.N.P., D.N.P. Follow-up (Nasal bleeding/irritation) 04/25/2025 Nurse Triage Department of [facility], [facility], in [place], [place] [address] [place] [address] Ysabel Crooks R.N. Nasal Congestion 04/21/2025 Clinical Communication Division of Pulmonary Medicine in [place], [place] [address] [place] [phone] Margarita Martinez, LOREN, C.N.P., D.N.P. [place] (Signed [facility]) 04/19/2025 Clinical Communication Department of Medical Genetics in [place], [place] [address] [place] [phone] Liliana Flowers M.S., [facility] Amb[employer]:LO 04/19/2025 Orders Only Department of Medical Genetics in [place], [place] [address] [place] [phone] Liliana Flowers M.S., CGC Personal History Of Other Malignant Neoplasm Of Bronchus And Lung (Primary Dx); Malignant Neoplasm Of Rectum (HCC) 04/18/2025 8:18 AM CDT - 04/18/2025 1:19 PM CDT Emergency [facility] Emergency Department [address] [place] [phone] Willi Jose M.D. Shortness Of Breath (Primary Dx) Discharge Disposition: Home or Self Care 04/18/2025 Clinical Communication Division of Pulmonary Medicine in [place], [place] [address] [place] [phone] Margarita Martinez APRN, C.N.P., D.N.P. Telephone call (Update) 04/15/2025 1:56 PM CDT - 04/15/2025 11:59 PM CDT Hospital Encounter Department of Radiology in [place], [place] [address] [place] [phone] Margarita Martinez APRN, C.N.P., D.N.P. Edema; Elevated D-Dimer Uncertain Significance Discharge Disposition: Home or Self Care 04/15/2025 Results Follow-Up Division of Pulmonary Medicine in [place], [place] [address] [place] [phone] Margarita Martinez APRN, C.N.P., D.N.P. US Lower Extremity Veins Bilateral 04/14/2025 9:03 AM CDT - 04/14/2025 11:59 PM CDT Hospital Encounter Department of Laboratory Medicine in [place], [place] [address] [place] [address] Margarita Martinez APRN, C.N.P., D.N.P. Edema Discharge Disposition: Home or Self Care 04/14/2025 8:20 AM CDT Office Visit Department of Family Medicine, [facility], in [place], [place] [address] [place] [address] Kati Colin M.D. Dizziness (Primary Dx); Chronic Obstructive Pulmonary Disease Without Exacerbation (HCC); Vertigo; Weakness General; Orthostatic Spell; Diarrhea; Edema Leg Chronic; Anxiety; Shortness Of Breath 04/14/2025 Documentation Division of Pulmonary Medicine in [place], [place] [address] [place] [phone] Margarita Martinez APRN, C.N.P., D.N.P. 04/12/2025 11:30 AM CDT Office Visit Division of Pulmonary Medicine in [place], [place] [address] [place] [address] Margarita Martinez, LOREN, C.N.P., D.N.P. Asthma With Chronic Obstructive Pulmonary Disease (HCC) (Primary Dx); Chronic Respiratory Failure (HCC); Chronic Obstructive Pulmonary Disease Without Exacerbation (HCC); Apnea Sleep Obstructive; Corticosteroid Treatment Explosive Specialist Systemic; Edema; Abnormal Computed Tomography Chest; Chronic Cough 04/11/2025 11:43 AM CDT - 04/11/2025 11:59 PM CDT Emergency [facility] [address] [place] [address] Asthma (HCC) (Primary Dx) Discharge Disposition: Home or Self Care 04/11/2025 Nurse Triage Department of Family [facility], [facility], in [place], [place] [address] [place] [address] Ivanna Venegas R.N. Appointment 04/11/2025 Nurse Triage Department of Family [facility], [facility], in [place], [place] [address] [place] [address] Vee Pedro R.N. Shortness of Breath 04/07/2025 10:15 AM CDT Silent Schedule Department of Ophthalmology in [place], [place] [address] [place] [phone] Tod Lubin Jr., M.D. 04/07/2025 10:15 AM CDT Comprehensive Visit Department of Ophthalmology in [place], [place] [address] [place] [phone] Tod Lubin Jr., M.D. Nonexudative Age-Related Macular Degeneration Unspecified Stage Bilateral (Primary Dx); Intraocular Lens Implant Status Post 04/06/2025 10:30 AM CDT Office Visit Department of Family [facility], [facility], in [place], [place] [address] [place] [address] Halima Osorio APRN, C.N.P., D.N.P. Chronic Obstructive Pulmonary Disease Without Exacerbation (HCC) (Primary Dx); Follow Up Exam 04/05/2025 3:44 PM CDT - 04/05/2025 10:46 PM CDT Emergency [facility] Emergency Department [address] [place] [address] Ernesto Fink M.D., M.H.P.E. Chronic Obstructive Pulmonary Disease Exacerbation (HCC) (Primary Dx) Discharge Disposition: Home or Self Care 04/05/2025 Nurse Triage Department of Family Medicine, [facility], in [place], [place] [address] [place] [address] Liana Ballesteros R.N. Fatigue; Shortness of Breath 03/30/2025 9:00 AM CDT Infusion Department of Infusion Therapy in [place], [place] [address] [phone] Antoine Phillip M.D. Malignant Neoplasm Of Rectum (HCC) (Primary Dx); Malignant Neoplasm Of Lung Adenocarcinoma Right (HCC); Secondary Malignant Neoplasm Lymph Node Intrathoracic (HCC) 03/29/2025 2:20 PM CDT Telemedicine Department of Oncology in [place], [place] [address] [phone] Antoine Phillip M.D. Abnormal Positron Emission Tomography Scan (Primary Dx); Malignant Neoplasm Of Lung Adenocarcinoma Right (HCC); Lymphadenopathy Gastrointestinal; Secondary Malignant Neoplasm Lymph Node Intrathoracic (HCC); Anemia Chemotherapy Induced; Insufficiency Renal 03/29/2025 10:49 AM CDT - 03/29/2025 11:59 PM CDT Hospital Encounter Department of Radiation Oncology in [place], [place] [address] [place] [phone] Ange Sawyer M.D. Discharge Disposition: Home or Self Care 03/29/2025 Documentation Department of Radiation Oncology in [place], [place] [address] [place] [address] Ange Sawyer M.D. 03/28/2025 2:48 PM CDT - 03/28/2025 4:38 PM CDT Hospital Encounter Department of Radiation Oncology in [address] [address] Ange Sawyer M.D. Malignant Neoplasm Of Lung Adenocarcinoma Right (HCC) 03/28/2025 2:48 PM CDT - 03/28/2025 11:59 PM CDT Hospital Encounter Department of Radiation Oncology in [address] [address] Ange Sawyer M.D. Discharge Disposition: Home or Self Care 03/28/2025 10:33 AM CDT - 03/28/2025 2:47 PM CDT Hospital Encounter Department of Laboratory Medicine in [address] [phone] Antoine Phillip M.D. Malignant Neoplasm Of Lung Adenocarcinoma Right (HCC) Discharge Disposition: Home or Self Care 03/25/2025 8:32 AM CDT - 03/25/2025 11:59 PM CDT Hospital Encounter Department of Radiation Oncology in [address] [address] Ange Sawyer M.D. Discharge Disposition: Home or Self Care 03/24/2025 8:48 AM CDT - 03/24/2025 11:59 PM CDT Hospital Encounter Department of Radiation Oncology in [address] [address] Ange Sawyer M.D. Discharge Disposition: Home or Self Care 03/24/2025 Clinical Communication Department of Radiation Oncology in [address] [phone] Ange Sawyer M.D. 03/23/2025 8:42 AM CDT - 03/28/2025 10:32 AM CDT Hospital Encounter Department of Radiation Oncology in [address] [address] Perico Marr M.D. Malignant Neoplasm Of Lung Adenocarcinoma Right (HCC) 03/23/2025 8:42 AM CDT - 03/23/2025 11:59 PM CDT Hospital Encounter Department of Radiation Oncology in [address] [address] Ange Sawyer M.D. Discharge Disposition: Home or Self Care 03/22/2025 8:48 AM CDT - 03/22/2025 11:59 PM CDT Hospital Encounter Department of Radiation Oncology in [address] [phone] Ange Sawyer M.D. Discharge Disposition: Home or Self Care 03/21/2025 8:52 AM CDT - 03/21/2025 11:59 PM CDT Hospital Encounter Department of Radiation Oncology in [address] [address] Ange Sawyer M.D. Discharge Disposition: Home or Self Care 03/21/2025 8:39 AM CDT - 03/21/2025 8:51 AM CDT Hospital Encounter Department of Radiation Oncology in [address] [address] Ange Sawyer M.D. [place]house, Alexis E, R.NGuille Malignant Neoplasm Of Lung Adenocarcinoma Right (HCC) (Primary Dx) 03/20/2025 3:52 PM CDT - 03/20/2025 8:06 PM CDT Emergency [facility] Emergency Department [address] [place] [phone] Yogi Chavez M.D., M.B.A. Viral Syndrome (Primary Dx) Discharge Disposition: Home or Self Care 03/18/2025 Clinical Communication Department of Infusion Therapy in [place], [place] [address] [place] [address] Jannette Samson, R.NGuille 03/18/2025 Clinical Communication Department of Radiation Oncology in [address] [phone] Grover Heart R.N. 03/17/2025 2:48 PM CDT - 03/20/2025 3:51 PM CDT Emergency [facility] [address] [place] [phone] Pneumonia (Primary Dx) Discharge Disposition: Home-Health Care Svc 03/17/2025 8:30 AM CDT - 03/17/2025 9:59 AM CDT Hospital Encounter Department of Radiation Oncology in [address] [address] Ange Sawyer M.D. Robinson, Nicole, ALEKSANDER Malignant Neoplasm Of Lung Adenocarcinoma Right (HCC) 03/17/2025 8:29 AM CDT Hospital Encounter Department of Radiation Oncology in [address] [address] Ange Sawyer M.D. Discharge Disposition: Home or Self Care 03/17/2025 Clinical Communication Department of Oncology in [place], [place] [address] [place] [address] Lexi Phillip, LOREN, C.N.P., D.N.P. 03/17/2025 Nurse Triage Department of Family Medicine, [facility], in [address] [address] Velma Vásquez R.N. Shortness of Breath 03/16/2025 8:40 AM CDT - 03/16/2025 11:59 PM CDT Hospital Encounter Department of Radiation Oncology in [address] [address] Ange Sawyer M.D. Discharge Disposition: Home or Self Care 03/15/2025 9:00 AM CDT - 03/15/2025 11:59 PM CDT Hospital Encounter Department of Radiation Oncology in [address] [address] Ange Sawyer M.D. Discharge Disposition: Home or Self Care 03/15/2025 8:42 AM CDT - 03/15/2025 8:59 AM CDT Hospital Encounter Department of Radiation Oncology in [address] [address] Ange Sawyer M.D. Malignant Neoplasm Of Lung Adenocarcinoma Right (HCC) 03/14/2025 10:00 AM CDT Infusion Department of Infusion Therapy in [place], [place] [address] [phone] Antoine Phillip M.D. Malignant Neoplasm Of Lung Adenocarcinoma Right (HCC) (Primary Dx); Osteoporosis; Malignant Neoplasm Of Rectum (HCC); Secondary Malignant Neoplasm Lymph Node Intrathoracic (HCC) 03/14/2025 8:47 AM CDT - 03/14/2025 11:59 PM CDT Hospital Encounter Department of Radiation Oncology in [address] [address] Ange Sawyer M.D. Discharge Disposition: Home or Self Care 03/14/2025 8:37 AM CDT - 03/14/2025 8:46 AM CDT Hospital Encounter Department of Radiation Oncology in [address] [address] Ange Sawyer M.D. Moorhouse, Alexis E, RGuilleNGuille Malignant Neoplasm Of Lung Adenocarcinoma Right (HCC) (Primary Dx) 03/11/2025 3:30 PM CDT Office Visit Department of Family Medicine, [facility] [place], in [place], [place] [address] [place] [phone] Kacey Duran APRN, C.N.P. Keratosis Seborrheic (Primary Dx); Cyst Epidermal 03/11/2025 12:04 PM CDT - 03/11/2025 11:59 PM CDT Hospital Encounter Department of Laboratory Medicine in [address] [address] Antoine Phillip M.D. Malignant Neoplasm Of Lung Adenocarcinoma Right (HCC) Discharge Disposition: Home or Self Care 03/11/2025 8:37 AM CDT - 03/11/2025 12:03 PM CDT Hospital Encounter Department of Radiation Oncology in [address] [address] Ange Sawyer M.D. Discharge Disposition: Home or Self Care 03/10/2025 8:42 AM CDT - 03/10/2025 10:27 AM CDT Hospital Encounter Department of Radiation Oncology in [address] [address] Ange Sawyer M.D. Robinson, Nicole, RDN Malignant Neoplasm Of Lung Adenocarcinoma Right (HCC) 03/10/2025 8:41 AM CDT Hospital Encounter Department of Radiation Oncology in [address] [address] Ange Sawyer M.D. Malignant Neoplasm Of Lung Adenocarcinoma Right (HCC) 03/10/2025 8:41 AM CDT Hospital Encounter Department of Radiation Oncology in [address] [address] Ange Sawyer M.D. Discharge Disposition: Home or Self Care 03/09/2025 9:30 AM CDT Telemedicine Division of Endocrinology in [place], [place] [address] [place] [address] Adan Anderson M.D., M.S. Osteoporosis (Primary Dx) 03/09/2025 8:44 AM CDT - 03/09/2025 11:59 PM CDT Hospital Encounter Department of Radiation Oncology in [address] [address] Ange Sawyer M.D. Discharge Disposition: Home or Self Care 03/08/2025 8:39 AM CDT - 03/08/2025 11:59 PM CDT Hospital Encounter Department of Radiation Oncology in [address] [address] Ange Sawyer M.D. Discharge Disposition: Home or Self Care 03/08/2025 Results Follow-Up Department of Oncology in [place], [place] [address] [place] [address] Lexi Phillip APRN, C.N.P., D.N.P. DX Chest AP or PA and Lateral 2 Views 03/07/2025 1:09 PM CDT - 03/07/2025 11:59 PM CDT Hospital Encounter Department of Radiology in [address] [address] Lexi Phillip APRN, C.N.P., D.N.P. Malignant Neoplasm Of Lung Adenocarcinoma Right (HCC); Secondary Malignant Neoplasm Lymph Node Intrathoracic (HCC) Discharge Disposition: Home or Self Care 03/07/2025 10:00 AM CDT Infusion Department of Infusion Therapy in [place], [place] [address] [place] [address] Antoine Phillip M.D. Malignant Neoplasm Of Rectum (HCC) (Primary Dx); Malignant Neoplasm Of Lung Adenocarcinoma Right (HCC); Secondary Malignant Neoplasm Lymph Node Intrathoracic (HCC) 03/07/2025 9:09 AM CDT - 03/07/2025 9:46 AM CDT Hospital Encounter Department of Radiation Oncology in [address] [address] Ange Sawyer M.D. Moorhouse, Alexis E, RMadi Malignant Neoplasm Of Lung Adenocarcinoma Right (HCC) (Primary Dx); Secondary Malignant Neoplasm Lymph Node Intrathoracic (HCC) 03/07/2025 8:47 AM CDT - 03/07/2025 9:08 AM CDT Hospital Encounter Department of Radiation Oncology in [address] [address] Ange Sawyer M.D. Discharge Disposition: Home or Self Care 03/04/2025 3:00 PM CDT Telemedicine Department of Oncology in [place], [place] [address] [place] [address] Lexi Phillip APRN, C.N.PGuille, D.N.P. Malignant Neoplasm Of Lung Adenocarcinoma Right (HCC) (Primary Dx); Secondary Malignant Neoplasm Lymph Node Intrathoracic (HCC) 03/04/2025 10:49 AM CDT - 03/04/2025 11:59 PM CDT Hospital Encounter Department of Laboratory Medicine in [address] [address] Antoine Phillip M.D. Malignant Neoplasm Of Lung Adenocarcinoma Right (HCC) Discharge Disposition: Home or Self Care 03/04/2025 8:52 AM CDT - 03/04/2025 10:48 AM CDT Hospital Encounter Department of Radiation Oncology in [address] [address] Ange Sawyer M.D. Discharge Disposition: Home or Self Care 03/03/2025 9:15 AM CDT Telemedicine Department of Medical Genetics in [address] [address] Ange Sawyer M.D. Ongie, Laura J, M.SGuille, [facility] Malignant Neoplasm Of Rectum (HCC); Malignant Neoplasm Of Lung Adenocarcinoma Right (HCC) 03/03/2025 7:43 AM CDT - 03/03/2025 9:13 AM CDT Hospital Encounter Department of Radiation Oncology in [address] [address] Ange Sawyer M.D. von Ruden, Kristi A, ISABELN, LD Malignant Neoplasm Of Lung Adenocarcinoma Right (HCC) 03/03/2025 7:42 AM CDT Hospital Encounter Department of Radiation Oncology in [address] [address] Ange Sawyer M.D. Malignant Neoplasm Of Lung Adenocarcinoma Right (HCC) 03/03/2025 7:41 AM CDT Hospital Encounter Department of Radiation Oncology in [address] [address] Ange Sawyer M.D. Discharge Disposition: Home or Self Care 03/02/2025 10:00 AM CDT - 03/02/2025 11:59 PM CDT Hospital Encounter Department of Radiation Oncology in [address] [address] Ange Sawyer M.D. Discharge Disposition: Home or Self Care 03/01/2025 10:00 AM CDT Infusion Department of Infusion Therapy in [place], [place] [address] [address] Antoine Phillip M.D. Malignant Neoplasm Of Rectum (HCC) (Primary Dx); Malignant Neoplasm Of Lung Adenocarcinoma Right (HCC); Secondary Malignant Neoplasm Lymph Node Intrathoracic (HCC) 03/01/2025 8:56 AM CDT - 03/01/2025 11:59 PM CDT Hospital Encounter Department of Radiation Oncology in [address] [address] Agne Sawyer M.D. Discharge Disposition: Home or Self Care 03/01/2025 8:45 AM CDT - 03/01/2025 8:55 AM CDT Hospital Encounter Department of Radiation Oncology in [address] [address] Ange Sawyer M.D. Moorhouse, Alexis E RGuilleNGuille Malignant Neoplasm Of Lung Adenocarcinoma Right (HCC) (Primary Dx) 02/28/2025 11:50 AM CDT - 02/28/2025 11:59 PM CDT Hospital Encounter Department of Laboratory Medicine in [address] [address] Antoine Phillip M.D. Malignant Neoplasm Of Lung Adenocarcinoma Right (HCC) Discharge Disposition: Home or Self Care 02/28/2025 9:04 AM CDT - 02/28/2025 10:00 AM CDT Hospital Encounter Department of Radiation Oncology in [address] [address] Ange Sawyer M.D. Moorhouse, Alexis E, R.N. Malignant Neoplasm Of Lung Adenocarcinoma Right (HCC) 02/28/2025 9:04 AM CDT - 02/28/2025 11:49 AM CDT Hospital Encounter Department of Radiation Oncology in [address] [address] Ange Sawyer M.D. Discharge Disposition: Home or Self Care 02/28/2025 Orders Only Department of Oncology in [place], [place] [address] [place] [address] Antoine Phillip M.D. Malignant Neoplasm Of Lung Adenocarcinoma Right (HCC) (Primary Dx) 02/25/2025 8:56 AM CDT - 02/25/2025 11:59 PM CDT Hospital Encounter Department of Radiation Oncology in [address] [address] Ange Sawyer M.D. Discharge Disposition: Home or Self Care 02/25/2025 Orders Only Division of Pulmonary Medicine in [place], [place] [address] [place] [address] Margarita Martinez APRN, C.N.P., D.N.P. 02/25/2025 Orders Only Division of Pulmonary Medicine in [place], [place] [address] [place] [phone] Margarita Martinez APRN C.N.P., D.N.P. 02/25/2025 Clinical Communication Division of Pulmonary Medicine in [place], [place] [address] [place] [phone] Margarita Martinez APRN, C.NLoretta, D.N.P. Med Question (Prednisolone not covered) 02/24/2025 8:45 AM CDT - 02/24/2025 1:24 PM CDT Hospital Encounter Department of Radiation Oncology in [address] [address] Ange Sawyer M.D. von Ruden, Kristi A, RDN, LD Malignant Neoplasm Of Lung Adenocarcinoma Right (HCC) 02/24/2025 8:45 AM CDT - 02/24/2025 2:04 PM CDT Hospital Encounter Department of Radiation Oncology in [address] [address] Ange Sawyer M.D. Malignant Neoplasm Of Lung Adenocarcinoma Right (HCC) 02/24/2025 8:45 AM CDT - 02/24/2025 11:59 PM CDT Hospital Encounter Department of Radiation Oncology in [address] [address] Ange Sawyer M.D. Discharge Disposition: Home or Self Care 02/24/2025 Documentation Division of Pulmonary Medicine in [place], [place] [address] [place] [phone] Margarita Martinez APRN, C.NGuillePGuille, D.N.P. 02/24/2025 Clinical Communication Division of Pulmonary Medicine in [place], [place] [address] [place] [phone] Margarita Martinez APRN C.N.P., D.N.P. Phone call 02/23/2025 10:00 AM CDT Internal E-Consult Department of Oncology in [place], [place] [address] [place] [phone] Gerhard Westbrook M.D. Malignant Neoplasm Of Lung Adenocarcinoma Right (HCC) 02/23/2025 9:00 AM CDT - 02/23/2025 12:27 PM CDT Hospital Encounter Department of Radiation Oncology in [address] [address] Ange Sawyer M.D. Malignant Neoplasm Of Lung Adenocarcinoma Right (HCC) 02/23/2025 8:57 AM CDT - 02/23/2025 8:59 AM CDT Hospital Encounter Department of Radiation Oncology in [address] [address] Ange Sawyer M.D. Discharge Disposition: Home or Self Care 02/22/2025 2:40 PM CDT - 02/22/2025 11:59 PM CDT Hospital Encounter Department of Radiation Oncology in [address] [address] Ange Sawyer M.D. Discharge Disposition: Home or Self Care 02/22/2025 9:15 AM CDT Infusion Department of Infusion Therapy in [place], [place] [address] [address] Shannon Andre M.D. Malignant Neoplasm Of Lung Adenocarcinoma Right (HCC) (Primary Dx); Malignant Neoplasm Of Rectum (HCC); Secondary Malignant Neoplasm Lymph Node Intrathoracic (HCC) 02/22/2025 Clinical Communication Department of Infusion Therapy in [place], [place] [address] [place] [phone] Bernice Robertson, R.N. 02/22/2025 Orders Only Department of Oncology in [place], [place] [address] [place] [address] Kim Houston PharmTunde., R.Ph. 02/18/2025 12:16 PM CDT - 02/18/2025 11:59 PM CDT Hospital Encounter Department of Laboratory Medicine in [address] [address] Shannon Andre M.D. Malignant Neoplasm Of Lung Adenocarcinoma Right (HCC) Discharge Disposition: Home or Self Care 02/18/2025 9:28 AM CDT - 02/18/2025 12:15 PM CDT Hospital Encounter Department of Radiation Oncology in [address] [address] Ange Sawyer M.D. Discharge Disposition: Home or Self Care 02/18/2025 Clinical Communication Department of Infusion Therapy in [place], [place] [address] [place] [address] Maribel Leigh R.N. 02/17/2025 8:42 AM CDT - 02/17/2025 2:07 PM CDT Hospital Encounter Department of Radiation Oncology in [address] [address] Ange Sawyer M.D. Malignant Neoplasm Of Lung Adenocarcinoma Right (HCC) 02/17/2025 8:42 AM CDT - 02/17/2025 11:59 PM CDT Hospital Encounter Department of Radiation Oncology in [address] [address] Ange Sawyer M.D. Discharge Disposition: Home or Self Care 02/16/2025 8:31 AM CDT - 02/16/2025 11:59 PM CDT Hospital Encounter Department of Radiation Oncology in [address] [address] Agne Sawyer M.D. Discharge Disposition: Home or Self Care 02/15/2025 9:47 AM CDT - 02/15/2025 11:59 PM CDT Hospital Encounter Department of Radiation Oncology in [address] [address] nAge Sawyer M.D. Discharge Disposition: Home or Self Care 02/14/2025 2:42 PM CDT - 02/14/2025 11:59 PM CDT Hospital Encounter Department of Radiation Oncology in [address] [address] Ange Sawyer M.D. Discharge Disposition: Home or Self Care 02/14/2025 9:30 AM CDT Infusion Department of Infusion Therapy in [place], [place] [address] [address] Shannon Andre M.D. Malignant Neoplasm Of Lung Adenocarcinoma Right (HCC) (Primary Dx); Malignant Neoplasm Of Rectum (HCC); Secondary Malignant Neoplasm Lymph Node Intrathoracic (HCC) 02/14/2025 8:45 AM CDT Ancillary Procedure Department of Dermatology 02/11/2025 1:00 PM CDT Telemedicine Department of Oncology in [place], [place] [address] [address] Shannon Andre M.D. Anderson, Sheri A, R.N. Malignant Neoplasm Of Lung Adenocarcinoma Right (HCC) (Primary Dx) 02/11/2025 11:50 AM CDT - 02/11/2025 11:59 PM CDT Hospital Encounter Department of Laboratory Medicine in [place], [place] [address] [place] [address] Shannon Andre M.D. Malignant Neoplasm Of Lung Adenocarcinoma Right (HCC) Discharge Disposition: Home or Self Care 02/11/2025 9:30 AM CDT Admin Visit Department of Oncology in [address] [address] Shannon Andre M.D. 02/10/2025 2:40 PM CDT Telemedicine Department of Oncology in [place], [place] [address] [place] [phone] Shannon Andre M.D. Malignant Neoplasm Of Lung Adenocarcinoma Right (HCC) (Primary Dx); Chronic Respiratory Failure With Hypoxia (HCC); Chronic Obstructive Pulmonary Disease Without Exacerbation (HCC); Malignant Neoplasm Of Rectum (HCC) 02/10/2025 10:40 AM CDT Office Visit Department of Family Medicine, [facility], in [place], [place] [address] [place] [address] Kati Colin M.D. Pain Right Upper Quadrant (Primary Dx); Colitis; Malignant Neoplasm Of Lung Adenocarcinoma Right (HCC); Constipation 02/10/2025 Clinical Communication Division of Pulmonary Medicine in [place], [place] [address] [place] [address] Margarita Martinez APRN C.N.P., D.N.P. [place] 02/10/2025 Clinical Communication Division of Pulmonary Medicine in [place], [place] [address] [place] [address] Margarita Martinez APRN, C.N.P., D.N.P. Med Management 02/07/2025 Clinical Communication Department of [facility], [place], [place] [address] [place] [address] Elvira Nicole R.N. Post Hospital Follow-up 02/04/2025 Clinical Communication Department of [facility], [place], [place] [address] [place] [address] Kati Colin M.D. PandaDoc Form ([facility] Medical Release ) 02/03/2025 Clinical Communication Department of Radiation Oncology in [place], [place] [address] [place] [address] Ange Sawyer M.D. 02/02/2025 11:11 PM CDT - 02/02/2025 11:59 PM CDT Emergency [facility] [address] [place] [phone] Pain Flank (Primary Dx) Discharge Disposition: Home or Self Care 01/31/2025 Nurse Triage Department of [facility], [place], [place] [address] [place] [address] Elvira Cummings RMadi Vascular Access Problem 01/31/2025 Clinical Communication Department of Radiology, [place], [place] [address] [place] [address] Dominick Salter M.D. Patient Question from Last 3 Months Immunizations Immunization Administration Dates Next Due DTaP, Unspecified 04/12/2019 Influenza TIV (IM) 07/15/2023,09/13/2022 Influenza, Injectable, Quadrivalent 06/29/2021 PCV20 06/29/2020 RESPIRATORY SYNCYTIAL VIRUS (RSV), UNSPECIFIED 07/25/2023 RZV (SHINGRIX) 02/10/2025 SARS-COV-2 (COVID-19) - MODE RNA (12 YEARS AND OLDER) Fall Seasonal 07/05/2024 SARS-COV-2 (COVID-19) - PFIZ ER (Discontinued)(12 years or older) 06/29/2021,12/22/2020,11/30/2020 influenza trivalent high dose (HD)(PF) 4 Family History Medical History Relation Name Comments Alcohol abuse Brother Vince Anxiety disorder Brother Vince Diabetes Brother Vince Drug abuse Brother Vince Hyperlipidemia Brother Vince Hypertension Brother Vince Suicide Attempts Brother Vince COPD Daughter 1 Hyperlipidemia Daughter 1 PCOS - Polycystic ovarian syndrome Daughter 1 PCOS - Polycystic ovarian syndrome Daughter 2 Alcohol abuse Father Edward Diabetes Father Edward Lung cancer Maternal Grandfather Arthritis Maternal Grandmother Stacy Heart attack Maternal Grandmother Stacy Hypertension Maternal Grandmother Stacy Anxiety disorder Mother Martha Arthritis Mother Martha Asthma Mother Martha Coronary artery disease Mother Martha of pulmonary embolism Heart attack Mother Martha Hyperlipidemia Mother Martha Hypertension Mother Martha Migraines Mother Martha Pulmonary embolism Mother Martha Stented coronary artery Mother Martha Uterine cancer Mother Martha Colon cancer Mother's Brother Uterine cancer Mother's Sister 1 Emphysema Mother's Sister 2 Uterine cancer Mother's Sister 2 Stomach cancer Mother's Sister 3 Uterine cancer Mother's Sister 3 Drug abuse Sister Ludmila knee problems Son 1 Testicular mass Son 2 unsure if ca ncer Autoimmune disorder Son 3 Relation Name Status Comments Brother Vince (Age 64) Daughter 1 Alive Daughter 2 Alive Father Edward no information Maternal Grandfather Maternal Grandmother Stacy (Age 81) Mother Martha (Age 73) Mother's Brother (Age 60s-70s) Mother's Sister 1 Mother's Sister 2 Mother's Sister 3 (Age 60s-70s) Sister Ludmila Alive Son 1 Alive Son 2 Alive Son 3 Alive Social History Tobacco Use Types Packs/Day Years Used Date Smoking Tobacco: Former Cigarettes 0.8 94.4 0 09/29/1969 - 08/23/2018 Smokeless Tobacco: Never Tobacco Cessation:Counseling Given: Not Answered Comments:Quit smoking several times for several months Alcohol Use Standard Drinks/Week Comments Yes 1 (1 standard drink = 0.6 oz pur e alcohol) [facility] Utilities Answer Date Recorded In the past 12 months has [employer], gas, oil, or water [employer] threatened to shut off services in your [...] your living situation today? 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 [address] [place] [phone] 05/05/2025 3:20 PM CDT Telemedicine Department of Oncology in [place], [place] [address] [place] [phone] Lexi Phillip APRN, C.N.P., D.N.P. [address] [place] [phone] 05/06/2025 1:10 PM CDT Comprehensive Visit Division of Gastroenterology in [place], [place] [address] [place] [address] Kati Colin M.D. [address] [place] [phone] 05/12/2025 2:00 PM CDT Comprehensive Visit Center for [facility] Medicine in [place], [place] [address] [place] [phone] Phil Dorman D.O., M.S. [address] [place] [address] 08/09/2025 1:30 PM GINNER HELPER Office Visit Department of Sleep Medicine in [place], [place] [address] [place] [phone] Sallie White APRN, C.N.P., D.N.P., M.S.N. [address] [phone] Scheduled Procedures Name Priority Associated Diagnoses Date/Ti me BRONCHOSCOPY FLEXIBLE Chronic Obstructive Pulmonary Disease Without Exacerbation (HCC) Abnormal Computed Tomography Chest Chronic Cough 05/03/2025 12:47 PM CDT Health Maintenance Due Date Last Done Comments CT Colonography 1955 Hepatitis C Screening 1955 Hepatitis B Vaccines (1 of 3 - Risk 3-dose series) 2016 Zoster Vaccines (2 of 2) 04/07/2025 02/10/2025 Influenza Vaccine (#1) 2025 , 07/15/2023, 09/13/2022, Additional history exists Visit: Medicare Annual Wellness 07/06/2025 07/05/2024 Mammogram 07/15/2025 07/15/2024, 0 04/2024, 10/11/2020, Additional history exists Hemoglobin A1C 08/02/2025 05/02/2025, 11/2024, 06/18/2024, Additional history exists Diabetic Office Visit with Foot Exam 10/11/2025 10/11/2024 Urine Albumin 11/01/2025 11/01/2024 Visit: Chronic Disease, age 18+ 01/03/2026 01/03/2025, 10/11/2024 Diabetic Eye Exam 04/07/2026 04/07/2025 Office Visit for Blood Pressure Check / Re-check 04/14/2026 04/14/2025 Creatinine Level (Kidney Function Test) 05/02/2026 05/02/2025, 04/18/2025, 04/11/2025, Additional history exists Potassium Level 05/02/2026 05/02/2025, 03/30, 04/11/2025, Additional history exists Sodium Level 05/02/2026 05/02/2025, 03/30, 04/11/2025, Additional history exists Cologuard 11/21/2027 11/21/2024 DTaP,Tdap,and Td Vaccines (2 - Tdap) 04/12/2029 04/12/2019 Colonoscopy 01/21/2030 01/21/2025 Colorectal Cancer Surveillance 01/21/2030 Lipid (Cholesterol) Screening 02/02/2030 02/02/2025, 01/14/2025, 12/09/2023, Additional history exists Pneumococcal vaccine (50+ years) Completed 06/29/2020 RSV vaccine - (32-36 weeks) or 60+ years Completed 07/25/2023 Bone Density Scan (Osteoporosis Screen) Discontinued 10/08/2023 Depression Screening (Annual PHQ-2) Completed 10/11/2024, 10/09/2024 Fall Risk Screen (Annual) Completed 01/28/2025 COVID-19 Vaccine Completed 02/10/2025, 03/2024, 06/29/2021, Additional history exists Lung Cancer Screening Discontinued 04/26/2025 , 04/26/2025, 12/09/2024, Additional history exists HPV Vaccines Aged Out No longer eligi ble based on patient's age to complete this topic IPV Vaccines Aged Out No longer eligi ble based on patient's age to complete this topic Goals Goal Patient Goal Type Associated Problems Recent Progress Patient-Stated? Author Autogenerat ed Goal Care Plan Autogenerated Problem No Deena [employer] Implanted Type Area [employer] Production Manager Device Identifier Shelf Expiration Date Model / Serial / Lot Hardware E.G. Pins/Screws/R ods Hardware e.g. pins/screws/ro ds Left: Hip Hardware E.G. Pins/Screws/R ods Hardware e.g. pins/screws/ro ds Bilateral : Spine Lumbar Hardware E.G. Pins/Screws/R ods Hardware e.g. pins/screws/ro ds Left: Heart Hardware E.G. Pins/Screws/R ods Hardware e.g. pins/screws/ro ds Left: Leg Description:Luh in femur, sc rew in knee Prt Cath Infus Mri Intrmd 8f - [id number] Implanted:Qty : 1 on 01/28/2025 by Dominick Salter M.D. at [facility]/[employer] 01/26/2026 [id number] / / [id number] Ocular Lens Ocular Lens Bilateral : Eye Procedures Procedure Name Priority Date/Time Associated Diagnosis Comments GLUCOSE POCT, B Routine 05/03/2025 12:41 PM CDT SURGERY IMAGE EXAM Routine 05/03/2025 12:40 PM CDT MISC AMBRY GENETICS Routine 05/02/2025 7:44 AM CDT MISCELLANEOUS SENT OUT LAB TEST Routine 05/02/2025 7:44 AM CDT Personal History Of Other Malignant Neoplasm Of Bronchus And Lung Malignant Neoplasm Of Rectum (HCC) HEMOGLOBIN A1C, B Routine 05/02/2025 7:44 AM CDT Diabetes Mellitus Type 2 (HCC) COMPREHENSIVE METABOLIC PANEL, S/P Routine 05/02/2025 7:43 AM CDT Malignant Neoplasm Of Lung Adenocarcinoma Right (HCC) Abnormal Positron Emission Tomography Scan Lymphadenopathy Gastrointestinal CBC WITH DIFFERENTIAL, B Routine 05/02/2025 7:43 AM CDT Malignant Neoplasm Of Lung Adenocarcinoma Right (HCC) Abnormal Positron Emission Tomography Scan Lymphadenopathy Gastrointestinal CT ABDOMEN PELVIS WITH IV CONTRAST RAD - Routine (most inpatients and all outpatients) 04/26/2025 11:38 AM CDT Malignant Neoplasm Of Lung Adenocarcinoma Right (HCC) Abnormal Positron Emission Tomography Scan Lymphadenopathy Gastrointestinal CT CHEST WITH IV CONTRAST RAD - Routine (most inpatients and all outpatients) 04/26/2025 11:38 AM CDT Malignant Neoplasm Of Lung Adenocarcinoma Right (HCC) LIPASE, S/P STAT 04/18/2025 10:25 AM CDT HEPATIC FUNCTION PANEL, S STAT 04/18/2025 10:25 AM CDT NT-PRO B-TYPE NATRIURETIC PEPTIDE (BNP), S STAT 04/18/2025 10:25 AM CDT BASIC METABOLIC PANEL, S/P STAT 04/18/2025 10:25 AM CDT PROTHROMBIN TIME (PT), P STAT 04/18/2025 10:25 AM CDT CBC WITH DIFFERENTIAL, B STAT 04/18/2025 10:25 AM CDT DX CHEST AP OR PA AND LATERAL 2 VIEWS RAD - Semiurgent (Fast; most ED patients; some inpatients) 04/18/2025 9:21 AM CDT ECG STAT 04/18/2025 8:25 AM CDT US LOWER EXTREMITY VEINS BILATERAL RAD - Routine (most inpatients and all outpatients) 04/15/2025 2:32 PM CDT Edema Elevated D-Dimer Uncertain Significance D-DIMER, P Routine 04/14/2025 9:[address] CHEST ANGIOGRAM AND PULMONARY ARTERIES WITH IV CONTRAST RAD - Semiurgent (Fast; most ED patients; some inpatients) 04/11/2025 2:06 PM CDT OPTICAL COHERENCE TOMOGRAPHY - MACULA/RETINA - OU - BOTH EYES Routine 04/07/2025 10:41 AM CDT Nonexudative Age-Related Macular Degeneration Unspecified Stage Bilateral CT CHEST ANGIOGRAM AND PULMONARY ARTERIES WITH IV CONTRAST RAD - Semiurgent (Fast; most ED patients; some inpatients) 04/05/2025 9:29 PM CDT VBG & LYTES CG8+, POCT, B STAT 04/05/2025 9:12 PM CDT MICROSCOPIC MANUAL STAT 04/05/2025 7:56 PM CDT PH, U STAT 04/05/2025 7:56 PM CDT DIPSTICK, U STAT 04/05/2025 7:56 PM CDT OSMOLALITY, U STAT 04/05/2025 7:56 PM CDT URINALYSIS WITH MICROSCOPIC STAT 04/05/2025 7:56 PM CDT BACTERIAL CULTURE, AEROBIC + SUSC, URINE STAT 04/05/2025 7:56 PM CDT TROPONIN T, 2H/6H REFLEX, 5TH GEN, P Timed 04/05/2025 6:59 PM CDT GLUCOSE POCT, B STAT 04/05/2025 4:50 PM CDT NT-PRO B-TYPE NATRIURETIC PEPTIDE (BNP), S STAT 04/05/2025 4:50 PM CDT TROPONIN T, BASELINE, 5TH GEN, P STAT 04/05/2025 4:50 PM CDT CBC WITH DIFFERENTIAL, B STAT 04/05/2025 4:50 PM CDT BASIC METABOLIC PANEL, S/P STAT 04/05/2025 4:50 PM CDT DX CHEST AP OR PA AND LATERAL 2 VIEWS RAD - Semiurgent (Fast; most ED patients; some inpatients) 04/05/2025 4:30 PM CDT ECG STAT 04/05/2025 3:52 PM CDT [facility] COURSE COMPLETE TREATMENT INFORMATION Routine 03/29/2025 11:14 AM CDT ARIA DAILY TREATMENT INFORMATION Routine 03/29/2025 11:14 AM CDT ARIA DAILY TREATMENT INFORMATION Routine 03/28/2025 3:11 PM CDT MAGNESIUM, S Routine 03/28/2025 10:54 AM CDT Malignant Neoplasm Of Lung Adenocarcinoma Right (HCC) BASIC METABOLIC PANEL, S/P Routine 03/28/2025 10:54 AM CDT Malignant Neoplasm Of Lung Adenocarcinoma Right (HCC) CBC WITH DIFFERENTIAL, B Routine 03/28/2025 10:54 AM CDT Malignant Neoplasm Of Lung Adenocarcinoma Right (HCC) ARIA DAILY TREATMENT INFORMATION Routine 03/25/2025 9:04 AM CDT ARIA DAILY TREATMENT INFORMATION Routine 03/24/2025 8:59 AM CDT ARIA DAILY TREATMENT INFORMATION Routine 03/23/2025 9:02 AM CDT ARIA DAILY TREATMENT INFORMATION Routine 03/22/2025 8:57 AM CDT ARIA DAILY TREATMENT INFORMATION Routine 03/21/2025 9:02 AM CDT TROPONIN T, 2H/6H REFLEX, 5TH GEN, P Timed 03/20/2025 7:10 PM CDT INFLUENZA A, B, RSV, PCR, RAPID, V STAT 03/20/2025 5:57 PM CDT SARS CORONAVIRUS 2, PCR RAPID, V STAT 03/20/2025 5:57 PM CDT GLUCOSE POCT, B STAT 03/20/2025 4:47 PM CDT TROPONIN T, BASELINE, 5TH GEN, P STAT 03/20/2025 4:47 PM CDT CBC WITH DIFFERENTIAL, B STAT 03/20/2025 4:47 PM CDT BASIC METABOLIC PANEL, S/P STAT 03/20/2025 4:47 PM CDT DX CHEST AP OR PA AND LATERAL 2 VIEWS RAD - Semiurgent (Fast; most ED patients; some inpatients) 03/20/2025 4:21 PM CDT ECG STAT 03/20/2025 3:59 PM CDT DX CHEST AP OR PA AND LATERAL 2 VIEWS RAD - Semiurgent (Fast; most ED patients; some inpatients) 03/17/2025 3:56 PM CDT ARIA DAILY TREATMENT INFORMATION Routine 03/17/2025 9:15 AM CDT ARIA DAILY TREATMENT INFORMATION Routine 03/16/2025 9:03 AM CDT ARIA DAILY TREATMENT INFORMATION Routine 03/15/2025 9:02 AM CDT ARIA DAILY TREATMENT INFORMATION Routine 03/14/2025 8:57 AM CDT MAGNESIUM, S Routine 03/11/2025 12:15 PM CDT Malignant Neoplasm Of Lung Adenocarcinoma Right (HCC) COMPREHENSIVE METABOLIC PANEL, S/P Routine 03/11/2025 12:15 PM CDT Malignant Neoplasm Of Lung Adenocarcinoma Right (HCC) CBC WITH DIFFERENTIAL, B Routine 03/11/2025 12:15 PM CDT Malignant Neoplasm Of Lung Adenocarcinoma Right (HCC) ARIA DAILY TREATMENT INFORMATION Routine 03/11/2025 8:50 AM CDT ARIA DAILY TREATMENT INFORMATION Routine 03/10/2025 9:05 AM CDT ARIA DAILY TREATMENT INFORMATION Routine 03/09/2025 8:57 AM CDT ARIA DAILY TREATMENT INFORMATION Routine 03/08/2025 8:55 AM CDT DX CHEST AP OR PA AND LATERAL 2 VIEWS RAD - Routine (most inpatients and all outpatients) 03/07/2025 1:15 PM CDT Malignant Neoplasm Of Lung Adenocarcinoma Right (HCC) Secondary Malignant Neoplasm Lymph Node Intrathoracic (HCC) ARIA DAILY TREATMENT INFORMATION Routine 03/07/2025 9:10 AM CDT MAGNESIUM, S Routine 03/04/2025 11:04 AM CDT Malignant Neoplasm Of Lung Adenocarcinoma Right (HCC) BASIC METABOLIC PANEL, S/P Routine 03/04/2025 11:04 AM CDT Malignant Neoplasm Of Lung Adenocarcinoma Right (HCC) CBC WITH DIFFERENTIAL, B Routine 03/04/2025 11:04 AM CDT Malignant Neoplasm Of Lung Adenocarcinoma Right (HCC) ARIA DAILY TREATMENT INFORMATION Routine 03/04/2025 9:08 AM CDT ARIA DAILY TREATMENT INFORMATION Routine 03/03/2025 8:05 AM CDT ARIA DAILY TREATMENT INFORMATION Routine 03/02/2025 10:45 AM CDT ARIA DAILY TREATMENT INFORMATION Routine 03/01/2025 9:09 AM CDT MAGNESIUM, S Routine 02/28/2025 12:02 PM CDT Malignant Neoplasm Of Lung Adenocarcinoma Right (HCC) BASIC METABOLIC PANEL, S/P Routine 02/28/2025 12:02 PM CDT Malignant Neoplasm Of Lung Adenocarcinoma Right (HCC) CBC CHEMO - NO ALERTS Routine 02/28/2025 12:02 PM CDT Malignant Neoplasm Of Lung Adenocarcinoma Right (HCC) ARIA DAILY TREATMENT INFORMATION Routine 02/28/2025 9:37 AM CDT ARIA DAILY TREATMENT INFORMATION Routine 02/25/2025 9:14 AM CDT ARIA DAILY TREATMENT INFORMATION Routine 02/24/2025 9:13 AM CDT ARIA DAILY TREATMENT INFORMATION Routine 02/23/2025 9:31 AM CDT ARIA DAILY TREATMENT INFORMATION Routine 02/22/2025 3:12 PM CDT MAGNESIUM, S Routine 02/18/2025 12:23 PM CDT Malignant Neoplasm Of Lung Adenocarcinoma Right (HCC) BASIC METABOLIC PANEL, S/P Routine 02/18/2025 12:23 PM CDT Malignant Neoplasm Of Lung Adenocarcinoma Right (HCC) CBC CHEMO - NO ALERTS Routine 02/18/2025 12:23 PM CDT Malignant Neoplasm Of Lung Adenocarcinoma Right (HCC) ARIA DAILY TREATMENT INFORMATION Routine 02/18/2025 10:08 AM CDT ARIA DAILY TREATMENT INFORMATION Routine 02/17/2025 8:57 AM CDT ARIA DAILY TREATMENT INFORMATION Routine 02/16/2025 8:49 AM CDT ARIA DAILY TREATMENT INFORMATION Routine 02/15/2025 10:16 AM CDT ARIA DAILY TREATMENT INFORMATION Routine 02/14/2025 3:16 PM CDT DERMATOLOGY IMAGE EXAM Routine 02/14/2025 8:45 AM CDT MAGNESIUM, S Routine 02/11/2025 12:06 PM CDT Malignant Neoplasm Of Lung Adenocarcinoma Right (HCC) COMPREHENSIVE METABOLIC PANEL, S/P Routine 02/11/2025 12:06 PM CDT Malignant Neoplasm Of Lung Adenocarcinoma Right (HCC) CBC WITH DIFFERENTIAL, B Routine 02/11/2025 12:06 PM CDT Malignant Neoplasm Of Lung Adenocarcinoma Right (HCC) CT ABDOMEN PELVIS WITHOUT IV CONTRAST RAD - Semiurgent (Fast; most ED patients; some inpatients) 02/03/2025 2:22 AM CDT US GALLBLADDER AND OR BILIARY DUCTS RAD - Semiurgent (Fast; most ED patients; some inpatients) 02/03/2025 12:12 AM CDT COLONOSCOPY Routine 01/21/2025 10:41 AM CDT Screening Cancer Colon LIPID PANEL, S Routine 01/14/2025 2:38 PM CDT Diabetes Mellitus Type 2 (HCC) COLOGUARD Routine 11/21/2024 12:45 PM GINNER HELPER Screening Cancer Colon ALBUMIN, RANDOM, U Routine 11/01/2024 9:54 AM GINNER HELPER Diabetes Mellitus Type 2 (HCC) BI BREAST SCREENING BILATERAL WITH TOMOSYNTHESIS RAD - Routine (most inpatients and all outpatients) 07/15/2024 10:05 AM CDT Well Adult Examination Normal from Last 3 Months or Most Recently Relevant to Health Maintenance Results * (ABNORMAL) Glucose, POCT (05/03/2025 12:41 PM CDT) Only the most recent of3 resultswithin the time period is included. Glucose, POCT, B 164(H) 70 - 140 mg/dL 05/03/2025 1:00 PM CDT PCLX Site Capillary 05/03/2025 1:00 PM CDT PCLX Blood 05/03/2025 12:4 1 PM CDT 05/03/2025 1:00 PM CDT us Unknown Provider LAB POCT ORDERABLES-MANUAL Ksenia l Result POC [facility] [address] [place] [address], [facility] PCLX [facility] POC [address] [place] [address] * Surgery Image Exam-Surgery Image Exam (05/03/2025 [...] NON RAD IMAGING PROCE DURES Final Result Performing Organization Address [facility] Co de Phone Number [facility] NA * [id number] CustomNext-Cancer + RNAinsight - Miscellaneous Test (05/02/2025 7:44 AM CDT) Test Name CustomNext-Canc er + RNAinsight 05/02/2025 7:44 AM CDT FB60 Result Specimen sent out; results to follow DEFAULT 05/02/2025 7:44 AM CDT FB60 Blood (Blood, Venous) 05/02/2025 7:44 AM CDT 05/02/2025 7:44 AM CDT us Molina Nolasco M.D. LAB MISC ORDERABLES Final Result Performing Organization Address City/[facility]/ZIP Co de Phone Number [facility] [address] [place] [address], [facility] FB60 [facility] [place] [address] [place] [address] * (ABNORMAL) Hemoglobin A1c (05/02/2025 7:44 AM [...] M.D. LAB BLOOD ADD-ON Final Resul t [facility] [address] [place] [address], [facility] OWAT [facility] [place] [address] [place] [address] * (ABNORMAL) CBC with Differential, Blood (05/02/2025 7:43 AM CDT) Only the most recent of8 resultswithin the time period is included. Pathologist [facility] Hemoglobin 10.2(L) 11.6 - 15.0 g/dL 05/02/2025 [...] Phillip M.D. LAB BLOOD ADD-ON Final Result [facility] [address] [place] [address], [facility] OWAT [facility] [place] [address], [place] [address] * (ABNORMAL) Comprehensive Metabolic Panel (05/02/2025 7:43 AM CDT) Only the most recent of3 resultswithin the time period is included. Potassium, P 3.7 3.6 - 5.2 mmol/L [...] Phillip M.D. LAB BLOOD ADD-ON Final Result [facility] [address] [place] [address], [facility] OWAT [facility] [place] [address] [place] [address] * CT Abdomen Pelvis with IV Contrast [...] Mediastinum: Unremarkable visualized thyroid gland. Right chest [id number] terminates in the SVC. Normal heart size. [...] 3. No abdominopelvic abnormality. Antoine Phillip M.D. [facility] CT PROCEDURES Final Result * CT Chest [...] Mediastinum: Unremarkable visualized thyroid gland. Right chest [id number] terminates in the SVC. Normal heart size. [...] suggest diseaseprogression. 3. No abdominopelvic abnormality. Ange Sawyer M.D. [facility] CT PROCEDURES Final R esult * (ABNORMAL) Hepatic Function Panel (04/18/2025 10:25 AM CDT) Bilirubin, Total, S 0.7 0.0 - 1.2 [...] 10:25 AM CDT 04/18/2025 10:39 AM CDT us Tri Cheng M.D., Ph.D. LAB BLOOD ADD-ON Fi nal Result Performing Organization Address [facility] Co de Phone Number [facility] [address] [place] [address] * (ABNORMAL) NT-Pro B-Type Natriuretic Peptide (BNP) (04/18/2025 10:25 AM CDT) Only the most recent of2 resultswithin the time period is included. NT-Pro BNP 708(H) <=540 pg/mL 04/18/2025 10:57 AM CDT [facility] Comment: NT-proBNP values less than 300 pg/mL [...] ADD-ON Fi nal Result Performing Organization Address City/[facility]/ZIP Co de Phone Number [facility] [address] STMA [facility] 200 [place] [address] * (ABNORMAL) Prothrombin Time (PT) (04/18/2025 10:25 AM CDT) Prothrombin Time, P 12.7(H) 9.4 - 12.5 [...] ADD-ON Fi nal Result Performing Organization Address [facility] [place] [address] * (ABNORMAL) Lipase (04/18/2025 10:25 AM CDT) Pathologist [facility] Lipase, S 63(H) 13 - 60 U/L 04/18/2025 11:28 AM CDT DTL Blood (Blood, Venous) 04/18/2025 10:25 AM CDT 04/18/2025 10:39 AM CDT us Tri Cheng M.D., Ph.D. LAB BLOOD ADD-ON Fi nal Result Performing Organization Address City/[facility]/ZIP Co de Phone Number [facility] [address] [place] [address] * (ABNORMAL) Basic Metabolic Panel (04/18/2025 10:25 AM CDT) Only the most recent of7 resultswithin the time period is included. Pathologist [facility] Potassium, P 3.3(L) 3.6 - 5.2 mmol/L [...] Ph.D. LAB BLOOD ADD-ON Fi nal Result [facility] [address] [place] [address], [facility] [address] [place] [address] * DX Chest AP or PA and Lateral 2 Views (04/18/2025 9:21 AM CDT) Only the most recent of5 resultswithin the time period is included. Anatomical Region Laterality Modality Chest, Thoracic RST [...] ECG 12 Lead (04/18/2025 8:25 AM CDT) Only the most recent of3 resultswithin the time period is included. Ventricular Rate ECG/Min 87 BPM MUSE KS Interval 150 ms MUSE QRSD Interval 70 ms MUSE QT Interval 380 ms MUSE QTC Interval 457 ms MUSE P Pinson 41 degrees MUSE R Pinson 21 degrees MUSE T Wave Pinson 61 degrees MUSE 04/18/2025 8:25 AM CDT [...] ECG ORDERABLES Final Result MUSE NA * US Lower Extremity Veins Bilateral (04/15/2025 [...] and management can be found on the [employer] site. Link [email or web address] Procedure Note Christiano Oneil M.D. - 04/15/2025 [...] thrombosis and management can be found on the[employer] site. [email or web address] IMPRESSION: 1. Negative for acute DVT. 2. Right 5.1 cm popliteal fossa cyst. Margarita Martinez APRN, C.N.P., D.N.P. [facility] [place] OCEDURES Final Result * (ABNORMAL) D-Dimer (04/14/2025 9:10 AM CDT) [facility] D-Dimer, P 1038(H) <=500 ng/mL FEU 04/14/2025 10:59 AM CDT OW[facility] Comment: D-dimer concentrations increase with age. For DVT/PE exclusion, in addition to clinical pre-test probability, age-adjusted D-dimer cut-offs are suggested for patients >50 years old. For additional information refer to the D-dimer assay in the Laboratory Test Catalog (LTC) and/or [employer] (GREGG). ----ADDITIONAL INFORMATION---- D-dimer values less than or equal to 500 ng/mL fibrinogen equivalent units (FEU) may be used in conjunction with clinical pre-test probability to exclude deep vein thrombosis (DVT) and/or pulmonary embolism (PE). Blood (Blood, Venous) 04/14/2025 9:10 AM CDT 04/14/2025 10:39 AM CDT us Kael Monroe APRN.N.P., D.N.P. LAB BLOOD ADD-ON Final Result [facility] [address] [place] [address], [place] OW[place] [facility] [place] [address] [place] [address] * CT Chest Angiogram and Pulmonary Arteries with IV Contrast (04/11/2025 2:06 PM CDT) Only the most recent of2 resultswithin the time period is included. Anatomical Region Laterality Modality Chest, Cardiovascular RST [...] middle lobe collapse, andmediastinal/hilar adenopathy. us Trevin J Rapatz-Denis P.A. IMG CT PROCEDURES Fin al Result * Optical Coherence Tomography - Macula/Retina - [...] ou and geographic atrophy ou. NO edema. us Tod Lubin Jr., M.D. OPHTH TOMOGRAPHY Final Result OPHTHALMOLOGY IMAGING EXAM * (ABNORMAL) Venous Blood Gas and Electrolytes CG8+, POCT (04/05/2025 9:12 PM CDT) Sample Site, POCT Venstick 04/05/2025 9:24 PM [...] - 44.9 % 04/05/2025 9:24 PM CDT PCSM Comment: ----ADDITIONAL INFORMATION---- Performed at the Point of Care Blood (Blood, Venous) 04/05/2025 9:12 PM CDT 04/05/2025 9:15 PM CDT Ernesto Fink M.D., M.H.P.E. LAB POCT JOEY RAY - DEVICE Final Result POC RST [facility] [address] POC [address] [facility] [address] * (ABNORMAL) Dipstick, Urine (04/05/2025 7:56 PM [...] ORDERAB LES Final Result Performing Organization Address City/[facility]/ZIP Co de Phone Number [facility] 200 [place], [place] [address] [place] [address] [address] * Microscopic Manual (04/05/2025 7:56 PM CDT) [...] ORDERAB LES Final Result Performing Organization Address City/[facility]/ZIP Co de Phone Number [facility] [address] [place] [address], [facility] 200 [place] [address] * Bacterial Culture, Aerobic + Susceptibility, Urine (04/05/2025 7:56 PM CDT) Urine Culture Urogenital microbiota, susceptibilities not performed per laboratory criteria. 04/07/2025 6:22 AM CDT DT Urine (Urine, Midstream) 04/05/2025 7:56 PM CDT 04/05/2025 8:44 PM CDT Comment:Specimen Source Site : Urine Ernesto Fink M.D., Kat. LAB M ICROBIOLOGY - GENERAL ORDERABLES Final Result Performing Organization Address City/[facility]/ZIP Co de Phone Number [facility] [address] [place] [address] * pH, Urine (04/05/2025 7:56 PM CDT) pH, U 6.5 4.5 - 8.0 04/05/2025 8:5 4 PM CDT DT Urine 04/05/2025 7:56 PM CDT 04/05/2025 8:16 PM CDT Alisha Galeana P.A.-C., M.S. LAB URINE ORDERAB LES Final Result Performing Organization Address [facility]/ZIP Co de Phone Number [facility] [address] [place] [address], [facility] 200 [place] [address] * Osmolality, Urine (04/05/2025 7:56 PM CDT) Osmolality, U 676 150 - 1150 mOsm/kg 04/05/2025 8:54 PM CDT DT Urine 04/05/2025 7:56 PM CDT 04/05/2025 8:16 PM CDT Alisha Galeana P.A.-C., M.S. LAB URINE ORDERAB LES Final Result [facility] [address] [place] [address], [place] [facility] 200 [place] [address] * (ABNORMAL) Urinalysis, with Microscopic: Urine, Midstream [...] M.H.P.E. LAB URINE ORD ERABLES Final Result [facility] [address] [place] [address], [facility] 200 [place] [address] * (ABNORMAL) Troponin T, 2 Hour with 6 Hour Reflex, 5th Gen (04/05/2025 6:59 PM CDT) Only the most recent of2 resultswithin the time period is included. Pathologist [facility] Troponin T, 2 hr, 5th gen 25(H) <=10 ng/L 04/05/2025 7:21 PM CDT [facility] 2H Delta -2 ng/L 04/05/2025 7:21 PM CDT [facility] Comment:6 hour collection no t indicated. 2H Delta Interp Not Changing 04/05/2025 7:21 PM CDT [facility] Blood 04/05/2025 6:59 PM CDT 04/05/2025 7:02 PM CDT us Alisha Galeana P.A.-C., M.S. LAB BLOOD TROPONI N Final Result Performing Organization Address [facility] de Phone Number [facility] [address] [place] [address] * (ABNORMAL) Troponin T, Baseline with 2 Hour/6 Hour Reflex Biomarker Panel (04/05/2025 4:50 PM CDT) Only the most recent of2 resultswithin the time period is included. Troponin T, Baseline, 5th gen 27(H) <=10 ng/L 04/05/2025 5:25 PM CDT [facility] Blood (Blood, Venous) 04/05/2025 4:50 PM CDT 04/05/2025 4:56 PM CDT us Ernesto Fink M.D., M.H.P.E. LAB BLOOD TRO PONIN Final Result Performing Organization Address [facility] Co de Phone Number [facility] 200 [place] [address], [facility] 200 [place] [address] * Aria Course Complete Treatment Information (03/29/2025 11:14 AM CDT) Course ID [id number] HALL ARIA Course Start Date 5 15:43 CDT HALL ARIA Course End Date 5 15:12 CDT HALL ARIA First Treatment Date 5 15:15 CDT HALL ARIA Last Treatment Date 5 11:14 CDT HALL ARIA Treatment Elapsed Days 43 HALL ARIA Reference Point [id number] HALL ARIA Dosage Given to Date cGy 6000 HALL ARIA Plan ID [id number] HALL ARIA Fractions Treated to Date 30 HALL ARIA Planned Total Fractions 30 HALL ARIA Prescribed Dose Per Fraction 200 HALL ARIA Prescription Dose in cGy 6000 HALL ARIA Plan Primary Reference Point [id number] HALL ARIA 03/29/2025 11:1 4 AM CDT us Provider Not In System RADIATION ONCOLOGY ORDERA BLES Final Result RAFAEL RODRIGUEZ na * Aria Daily Treatment Information (03/29/2025 11:14 AM CDT) Only the most recent of30 resultswithin the time period is included. Course ID [id number] HALL ARIA Course Start Date 5 15:43 CDT HALL ARIA First Treatment Date 5 15:15 CDT HALL ARIA Last Treatment Date 5 11:14 CDT HALL ARIA Treatment Elapsed Days 43 HALL ARIA Reference Point [id number] AHLL ARIA Dosage Given to Date cGy 6000 HALL ARIA Session Dosage Given 200 HALL ARIA Plan ID [id number] HALL ARIA Fractions Treated to Date 30 HALL ARIA Planned Total Fractions 30 HALL ARIA Prescribed Dose Per Fraction 200 HALL ARIA Prescription Dose in cGy 6000 HALL ARIA Plan Primary Reference Point [id number] HALL ARIA 03/29/2025 11:1 4 AM CDT us Provider Not In System RADIATION ONCOLOGY ORDERA BLES Final Result RAFAEL RODRIGUEZ na * (ABNORMAL) Magnesium (03/28/2025 10:54 AM CDT) Only the most recent of6 resultswithin the time period is included. Magnesium, P 2.5(H) 1.7 - 2.3 mg/dL 03/28/2025 2:07 PM CDT [facility] Blood (Blood, Venous) 03/28/2025 10:54 AM CDT 03/28/2025 1:28 PM CDT us Antoine Phillip M.D. LAB BLOOD ADD-ON Final Result [facility] [address] [place] [address], [place] [facility] [facility] [place] [address] [place] [address] * Influenza A, B, RSV, PCR, Rapid (03/20/2025 5:57 PM CDT) Influenza A, PCR, Rapid, V Negative Negative [...] GENERAL ORDERABLES Final Result Performing Organization Address [facility] Co de Phone Number [facility] [address] [place] [address], [facility] [address] [place] [address] * SARS Coronavirus 2, PCR Rapid Symptomatic (03/20/2025 5:57 PM CDT) SARS CoV-2, PCR, Rapid, V Undetected Undetected 03/20/2025 6:27 PM CDT [facility] SARS Coronavirus 2, Rapid, Source Swab, Nasopharynx 03/20/2025 6:02 PM CDT [facility] Swab (Nasopharynx) 03/20/2025 5:57 PM CDT 03/20/2025 6:02 PM CDT us Yogi Chavez M.D., M.B.A. LAB MICROBIOLOGY - GENERAL ORDERABLES Final Result Performing Organization Address [facility] Co de Phone Number [facility] [address] [place] [address], [facility] [address] [place] [address] * (ABNORMAL) CBC, Chemotherapy, No Alerts (02/28/2025 12:02 PM CDT) Only the most recent of2 resultswithin the time period is included. Hemoglobin 11.4(L) 11.6 - 15.0 g/dL 02/28/2025 1:49 PM CDT [facility] Platelet Count 172 157 - 371 x10(9)/L 02/28/2025 1:49 PM CDT [facility] Leukocytes 3.6 3.4 - 9.6 x10(9)/L 02/28/2025 1:49 PM CDT [facility] Neutrophils 2.98 1.56 - 6.45 x10(9)/L 02/28/2025 1:49 PM CDT [facility] Blood (Blood, Venous) 02/28/2025 12:02 PM CDT 02/28/2025 1:42 PM CDT us Antoine Phillip M.D. LAB BLOOD ADD-ON Final Result Performing Organization Address [facility] Co de Phone Number [facility] [address] [place] [address], [facility] OWAT [facility] [place] [address] [place] [address] * Leg right 528a-Dermatology Image Exam (02/14/2025 8:45 AM CDT) 02/14/2025 8:41 AM CDT Narrative [facility] - 02/14/2025 10:44 AM CDT This order has been created and auto-finalized to support the import of images acquired without order. The clinical documentation to support these images can be found on the encounter that produced images. us Provider Not In System IMG NON RAD IMAGING PROCE DURES Final Result Performing Organization Address City/[facility]/ZIP Co de Phone Number [facility] NA * CT Abdomen Pelvis without IV Contrast (02/03/2025 2:22 AM CDT) Anatomical Region Laterality Modality Abdomen, Pelvis, Abdominal R ST LOS, Abdominal ARZ LOS, Abdominal FLA LOS N/A Computed Tomography 02/03/2025 2:17 AM CDT Impressions 02/03/2025 2:44 AM CDT No acute noncontrast CT findings within the abdomen or pelvis. Specifically, no obstructing renal stones. Narrative 02/03/2025 2:44 AM CDT EXAM: CT ABDOMEN PELVIS WITHOUT IV CONTRAST COMPARISON: Multiple CTs of the abdomen and pelvis, most recently 01/08/2025 FINDINGS: Examination limited without the use of IV contrast. The unenhanced liver, gallbladder, pancreas, spleen, and adrenal glands are unremarkable. No hydronephrosis. No destructive renal stones. Negative urinary bladder. Physiologic appearance of the uterus. The ovaries are not well seen. No large free fluid in the pelvis. Normal caliber bowel. Negative appendix. Normal caliber aorta. Moderate vascular calcifications. No visible lymphadenopathy in the abdomen or pelvis. Linear atelectasis in the left lung base. Intramedullary luh and screw fixation of the left femoral neck. Posterior instrumented fusion at L3-L5. Chronic superior compression deformity of the L1 vertebral body. No new compression deformities. Fat-containing umbilical hernia. Procedure Note Yogi Diane M.D. - 02/03/2025 EXAM: CT ABDOMEN PELVIS WITHOUT IV CONTRAST COMPARISON: Multiple CTs of the abdomen and pelvis, most ocjjvbsl89/12/2025 FINDINGS: Examination limited without the use of IV contrast. The unenhanced liver, gallbladder, pancreas, spleen, and adrenal glandsare unremarkable. No hydronephrosis. No destructive renal stones. Negativeurinary bladder. Physiologic appearance of the uterus. The ovaries are notwell seen. No large free fluid in the pelvis. Normal caliber bowel. Negative appendix. Normal caliber aorta. Moderatevascular calcifications. No visible lymphadenopathy in the abdomen orpelvis. Linear atelectasis in the left lung base. Intramedullary luh and screw fixation of the left femoral neck. Posteriorinstrumented fusion at L3-L5. Chronic superior compression deformity ofthe L1 vertebral body. No new compression deformities. Fat-containing umbilical hernia. IMPRESSION: No acute noncontrast CT findings within the abdomen or pelvis.Specifically, no obstructing renal stones. Brandon Wise [facility] CT PROCEDURES Final Result * US Gallbladder and or Biliary Ducts (02/03/2025 12:12 AM CDT) Anatomical Region Laterality Modality Abdomen, Ultrasound RST LOS, Ultrasound ARZ LOS, Ultrasound FLA LOS N/A Ultrasound Impressions 02/03/2025 12:28 AM CDT No acute sonographic abnormality identified. Narrative 02/03/2025 12:28 AM CDT EXAM: US GALLBLADDER AND OR BILIARY DUCTS COMPARISON: CT abdomen 01/08/2025 FINDINGS: Gallbladder: Normal. No gallstones. No wall thickening or pericholecystic fluid. Negative sonographic Castillo sign. Intrahepatic ducts: Not dilated. Common duct: Not dilated. Aorta: Normal caliber. Procedure Note Arya Pierre M.D. - 02/03/2025 EXAM: US GALLBLADDER AND OR BILIARY DUCTS COMPARISON: CT abdomen 01/08/2025 FINDINGS: Gallbladder: Normal. No gallstones. No wall thickening or pericholecysticfluid. Negative sonographic Castillo sign. Intrahepatic ducts: Not dilated. Common duct: Not dilated. Aorta: Normal caliber. IMPRESSION: No acute sonographic abnormality identified. Karrie Rodriguez M.D. [facility] US PROCEDURES Final Result * Colonoscopy (01/21/2025 10:41 AM CDT) 01/21/2025 10:4 1 AM CDT Impressions [facility] - 01/21/2025 12:38 PM CDT Post-op Diagnoses: - Incomplete exam due to sigmoid narrowing, significant looping and poor prep. - Colonoscope could only be advanced to the sigmoid colon. Exchanged for enteroscope which could be advanced maximally to the proximal ascending colon. - Preparation of the colon was poor limiting visualization. - Sigmoid narrowing (10 cm segment) secondary to ulceration, edema and erythema - Biopsied. Differential to include segmental colitis associated with diverticulosis (SCAD). See recent CT abdomen. - Diverticulosis in the sigmoid colon. - Radiation proctopathy - non-bleeding Narrative [facility] - 01/21/2025 12:38 PM CDT Mac 2 GI Patient Name: Luz Richardson Date of : 1955 Age: 69 Procedure Date: 01/21/2025 Procedure: Colonoscopy Providers: Laura Schuster MD Referring Provider: Kati Colin Pre-op Diagnoses: Follow-up of rectal cancer Recommendation: - The patient will be observed post-procedure, until all discharge criteria are met. - Return to referring provider. - Await pathology results. - Once sigmoid colitis has resolved and with an improved prep, repeat exam with double balloon-assist colonoscopy may be considered. - The quality of preparation was inadequate for proper examination. Colonoscopy findings should be interpreted with caution, as poor preparation may result in missed lesions. For future procedures, the patient should begin a clear liquid diet (no red liquids) 2-3 days prior to beginning colonoscopy preparation and low fiber diet for 7 days. An alternate large-volume preparation should be used, given the inadequacy the of the initial preparation. Findings: A few ulcers were found in the sigmoid colon. Biopsies were taken with a cold forceps for histology. An area of severely erythematous mucosa was found in the sigmoid colon. Diverticula were found in the sigmoid colon. Procedural Details: The patient was seen, evaluated, history reviewed, airway and heart-lung exams were performed by licensed provider and were satisfactory for planned level of sedation care. The risks, benefits and alternatives for the procedure and sedation were discussed and informed consent was obtained. A procedural pause was conducted in the presence of assisting personnel to verify the correct patient identity and procedure to be performed. Throughout the procedure, the patient's blood pressure, pulse, and oxygen saturations were monitored continuously. The Colonoscope was introduced through the anus and advanced to the the sigmoid colon. The Enteroscope was introduced through the anus and advanced to the the ascending colon. The colonoscopy was technically difficult and complex due to restricted mobility of the colon and significant looping. Successful completion of the procedure was aided by applying abdominal pressure. The patient tolerated the procedure well. The quality of the bowel preparation was poor. The quality of the bowel preparation was evaluated using the BBPS ([place] Bowel Preparation Scale) with scores of: Right Colon = 1 (portion of mucosa seen, but other areas not well seen due to staining, residual stool and/or opaque liquid), Transverse Colon = 1 (portion of mucosa seen, but other areas not well seen due to staining, residual stool and/or opaque liquid) and Left Colon = 1 (portion of mucosa seen, but other areas not well seen due to staining, residual stool and/or opaque liquid). The total BBPS score equals 3. The quality of the bowel preparation was inadequate. Complications: No immediate complications. Estimated Blood Loss: Estimated blood loss was minimal. Attending Participation: I personally performed the entire procedure. Laura Schuster MD 01/21/2025 12:38:03 PM This report has been signed electronically. Number of Addenda: 0 Note Initiated On: 01/21/2025 10:41 AM us Kati Colin M.D. GI PROCEDURE ORDERABLES Ksenia reed Result [facility] NA * Cologuard - Sent Out Lab (11/21/2024 12:45 PM GINNER HELPER) Result Negative Negative 11/25/2024 6:07 PM GINNER HELPER EXLI Comment: NEGATIVE TEST RESULT. A negative Cologuard result indicates a low likelihood that a colorectal cancer (CRC) or advanced adenoma (adenomatous polyps with more advanced pre-malignant features) is present. The chance that a person with a negative Cologuard test has a colorectal cancer is less than 1 in 1500 (negative predictive value >99.9%) or has an advanced adenoma is less than 5.3% (negative predictive value 94.7%). These data are based on a prospective cross-sectional study of 10,000 individuals at average risk for colorectal cancer who were screened with both Cologuard and colonoscopy. (Keila Ulloa. et al, N Engl J Med 2014;370(14):2273-7714) The normal value (reference range) for this assay is negative. COLOGUARD RE-SCREENING RECOMMENDATION: Periodic colorectal cancer screening is an important part of preventive healthcare for asymptomatic individuals at average risk for colorectal cancer. Following a negative Cologuard result, the [place] Cancer Society and U.S. Multi-Society Task Force screening guidelines recommend a Cologuard re-screening interval of 3 years. References: [place] [employer] Guideline for Colorectal Cancer Screening: https://www.cancer.org/cancer/emaif-lwqhqk-unkywh/detection- diagnosis-staging/acs-recommendations.html.; Hasmukh JENKINS, Tee FERNANDEZ, Jackie MEYER, Colorectal Cancer Screening: Recommendations for Physicians and Patients from the U.S. Multi-Society Task Force on Colorectal Cancer Screening , Am J Gastroenterology 2017; 112:7129-9207. TEST DESCRIPTION: Composite algorithmic analysis of stool DNA-biomarkers with hemoglobin immunoassay. Quantitative values of individual biomarkers are not reportable and are not associated with individual biomarker result reference ranges. Cologuard is intended for colorectal cancer screening of adults of either sex, 45 years or older, who are at average-risk for colorectal cancer (CRC). Cologuard has been approved for use by the U.S. FDA. The performance of Cologuard was established in a cross sectional study of average-risk adults aged 50-84. Cologuard performance in patients ages 45 to 49 years was estimated by sub-group analysis of near-age groups. Colonoscopies performed for a positive result may find as the most clinically significant lesion: colorectal cancer [4.0%], advanced adenoma (including sessile serrated polyps greater than or equal to 1cm diameter) [20%] or non- advanced adenoma [31%]; or no colorectal neoplasia [45%]. These estimates are derived from a prospective cross-sectional screening study of 10,000 individuals at average risk for colorectal cancer who were screened with both Cologuard and colonoscopy. (Keila Mcgowan et al, N Engl J Med 2014;370(14):2933-9172.) Cologuard may produce a false negative or false positive result (no colorectal cancer or precancerous polyp present at colonoscopy follow up). A negative Cologuard test result does not guarantee the absence of CRC or advanced adenoma (pre-cancer). The current Cologuard screening interval is every 3 years. ([place] [employer] Society and U.S. Multi-Society Task Force). Cologuard performance data in a 10,000 patient pivotal study using colonoscopy as the reference method can be accessed at the following location: www.[employer]/results. Additional description of the Cologuard test process, warnings and precautions can be found at www.cologuard.com. Stool (Stool) 11/21/2024 12: 45 PM GINNER HELPER 11/23/2024 9:45 AM GINNER HELPER us Kati Colin M.D. LAB BODY FLUIDS AND STOOLS O RDERABLES Final Result Performing Organization Address [facility] Co de Phone Number [address] [place] [address] EXLI [address] [facility], [address] [place] [address] * (ABNORMAL) Albumin, Random, Urine (11/01/2024 9:54 AM GINNER HELPER) Microalbumin 62.0 mg/L 11/01/2024 2:09 PM GINNER HELPER OWAT Creatinine 65 mg/dL 11/01/2024 2:09 PM GINNER HELPER OWAT Albumin/Creatinin e Ratio 95(H) <25 mg/g 11/01/2024 2:09 PM GINNER HELPER OWAT Urine (Urine, Midstream) 11/01/2024 9:54 AM GINNER HELPER 11/01/2024 1:21 PM GINNER HELPER us Kati Colin M.D. LAB URINE ORDERABLES Final R esult Performing Organization Address [facility] Co de Phone Number [facility] [address] [place] [phone], [facility] [place] [address] [place] [phone] * BI Breast Screening Bilateral with Tomosynthesis [...] Annual Screening Mammogram ASSESSMENT: BI-RADS: 1: Negative. Kati Colin M.D. 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 [address] [place] [phone] PCP - General Family Medicine 03/09/24
--- OUTSIDE RECORDS SUMMARY | 2025-05-03 18:54 | XMS_ITS | Encounter Summary ---
Author Organization [facility] Address [address] [place] [address] Care Team Providers Care Packing Room Worker Name Role Phone Kati Colin M.D. Primary Care Provider Reason for Visit * Reason Onset Date Comments Follow-up 04/25/2025 Nasal bleeding/i rritation Encounter Details Date Type Department Care Team (Latest Contact Info) Description 04/25/2025 Clinical Communication Division of Pulmonary Medicine in [place], [place] [address] [place] [address] Margarita Martinez, LOREN, C.N.P., D.N.P. [address] [place] [phone] Follow-up (Nasal bleeding/irritation ) Social History Tobacco Use Types Packs/Day Years Used Date Smoking Tobacco: Former Cigarettes 0.8 94.4 0 09/29/1969 - 08/23/2018 Smokeless Tobacco: Never Comments:Quit smoking severa l times for several months Alcohol Use Standard Drinks/Week Comments Yes 1 (1 standard drink = 0.6 oz pur e alcohol) [facility] Utilities Answer Date Recorded In the past 12 months has [employer], gas, oil, or water company threatened to [...] living situation today? I have a [facility] place to live 12/26/2024 Comments No Sex and Gender Information Value Date Recorded Sex Assigned at Female 05/07/2024 7:38 AM CDT Legal Sex Female 3:35 PM SCAFFOLD SETTER Gender Identity Female 05/07/2024 7:38 AM CDT Sexual Orientation Straight 05/07/2024 7: 38 AM CDT documented as of this encounter Miscellaneous Notes * Telephone Encounter - Maria E Calderone - 04/25/2025 11:19 AM CDT Shan, I called Luz and her daughter Deena to inform them of Luz's sleep medicine appointment in [place]. While on the phone Deena wanted to let us know that her mother feels like her nose is plugged but not congested. Luz feels like there is gunk in her nose and blood clots. Her nose was dried outfrom the dehumidifier and she thinks that it made it worse. She was unable to sleep the night before because she felt like she couldn't breathe and her anxiety kept her awake. They are wondering if there's anything that Luz can do to improve her nose and her breathing. Thank you, Heidi documented in this encounter Plan of Treatment Upcoming Encounters Date Type Department Care Team (Latest Contact Info) Description 05/04/2025 8:45 AM CDT Clinical Communication Virtual Review in [place], [place] [address] [place] [address] 05/04/2025 2:00 PM CDT Telemedicine Department of Oncology in [place], [place] [address], [place] [address] Antoine Phillip M.D. [address] [place] [phone] 05/05/2025 3:20 PM CDT Telemedicine Department of Oncology in [place], [place] [address] [place] [address] Lexi Phillip, LOREN, C.N.P., D.N.P. [address] [place] [address] 05/06/2025 1:10 PM CDT Comprehensive Visit Division of Gastroenterology in [place], [place] [address] [place] [address] Kati Colin M.D. [address] [place] [phone] 05/12/2025 2:00 PM CDT Comprehensive Visit Center for Sleep Medicine in [place], [place] [address] [place] [address] Phil Dorman D.O., M.S. [address] [place] [address] 08/09/2025 1:30 PM SCAFFOLD SETTER Office Visit Department of Sleep Medicine in [place], [place] [address] [place] [phone] Sallie White APRN, Kael.N.P., D.N.P., M.S.N. [address] [place] [address] Scheduled Procedures Name Priority Associated [...] documented as of this encounter Care Teams Packing Room Worker Relationship Specialty Start Date End Date Kati Colin M.D. [address] [place] [phone] PCP - General Family Medicine 03/09/24 documented as of this encounter
--- OUTSIDE RECORDS SUMMARY | 2025-05-03 18:55 | XMS_ITS | Encounter Summary ---
Author Organization [facility] Address [address] [place] [address] Care Team Providers Care Equity Research Analyst Name Role Phone Kati Colin M.D. Primary Care Provider Reason for Visit * Reason Onset Date Comments Shortness of Breath 04/11/2025 Encounter Details Date Type Department Care Team (Late st Contact Info) Description 04/11/2025 Nurse Triage Department of Family Medicine, [facility], in [place] [address] [place] [phone] Vee Pedro, RGuilleNGuille [address] [place] [phone] Shortness of Breath Social History Tobacco Use Types Packs/Day [...] today? I have a [facility] place to live 12/26/2024 Comments No Sex and Gender Information Value Date Recorded Sex Assigned at Female 05/07/2024 7:38 AM CDT Legal Sex Female 3:35 PM COPY HOLDER Gender Identity Female 05/07/2024 7:38 AM CDT Sexual Orientation Straight 05/07/2024 7: 38 AM CDT documented as of this encounter Miscellaneous Notes * Telephone Encounter - Vee Pedro R.N. - 04/11/2025 10:03 AM CDT Chief Complaint / Reason for Call Patient is a 69 y.o. female calling regarding Shortness of Breath. Assessment Concern: Patient reports worsening dyspnea this morning unrelieved with nebulizers. She reports dyspnea at rest. Over the last week she states her bilateral feet and legs have been swollen. Her face feels flushed. Systolic BP measures 167. She finished a course of antibiotics two days ago and a course of steroids today. She last had chemo and radiation two weeks ago. Calling to request: Advice The recommended disposition is Go to ED Now. Reason for Disposition Cancer treatment in past six months (or has cancer now) Protocols used: Breathing Ovpoglhuzj-Ytocl-UZ Care Advice Patient/Caregiver understands and will follow care advice?: Yes, able to teach back Breathing Tvlxsahlhn-Nwhrl-WA Nurse Vee Tobias Apr 11, 2025 10:09 AM Care Advice GO TO ED NOW: * You need to be seen in the Emergency Department. documented in this encounter Plan of Treatment Upcoming Encounters Date Type Department Care Team (Latest Contact Info) Description 05/04/2025 8:45 AM CDT Clinical Communication Virtual Review in [place], [place] [address] [place] [address] 05/04/2025 2:00 PM CDT Telemedicine Department of Oncology in [place], [place] [address] [phone] Antoine Phillip M.D. [address] [place] [phone] 05/05/2025 3:20 PM CDT Telemedicine Department of Oncology in [place], [place] [address] [place] [phone] Lexi Phillip APRN, C.N.P., D.N.P. [address] [place] [phone] 05/06/2025 1:10 PM CDT Comprehensive Visit Division of Gastroenterology in [place], [place] [address] [place] [address] Kati Colin M.D. [address] [place] [phone] 05/12/2025 2:00 PM CDT Comprehensive Visit Center for Sleep Medicine in [place], [place] [address] [place] [address] Phil Dorman D.O., M.S. [address] [place] [address] 08/09/2025 1:30 PM COPY HOLDER Office Visit Department of Sleep Medicine in [place], [place] [address] [place] [address] Sallie White APRN, C.N.P., D.N.P., M.S.N. [address] [place] [address] Scheduled Procedures Name Priority Associated Diagnoses Date/Ti [...] documented as of this encounter Care Teams Equity Research Analyst Relationship Specialty Start Date End Date Kati Colin M.D. [address] [place] [phone] PCP - General Family Medicine 03/09/24 documented as of this encounter
--- OUTSIDE RECORDS SUMMARY | 2025-05-03 18:55 | XMS_ITS | Encounter Summary ---
Author Organization [facility] Address [address] [place] [address] Care Team Providers Care Instruments Sales Representative Name Role Phone Kati Colin M.D. Primary Care Provider Reason for Visit * Reason Onset Date Comments [place] 04/21/2025 Signed SWO Encounter Details Date Type Department Care Team (Latest Contact Info) Description 04/21/2025 Clinical Communication Division of Pulmonary Medicine in [place], [place] [address] [place] [phone] Margarita Martinez, LOREN, C.N.P., D.N.P. [address] [place] [phone] [place] (Signed SWO) Social History Tobacco Use Types Packs/Day Years Used Date Smoking Tobacco: Former Cigarettes 0.8 94.4 0 09/29/1969 - 08/23/2018 Smokeless Tobacco: Never Comments:Quit smoking severa l times for several months Alcohol Use Standard Drinks/Week Comments Yes 1 (1 standard drink = 0.6 oz pur e alcohol) [facility] Utilities Answer Date Recorded In the [...] living situation today? I have a [facility] place to live 12/26/2024 Comments No Sex and Gender Information Value Date Recorded Sex Assigned at Female 05/07/2024 7:38 AM CDT Legal Sex Female 3:35 PM BOOK SEWER Gender Identity Female 05/07/2024 7:38 AM CDT Sexual Orientation Straight 05/07/2024 7: 38 AM CDT documented as of this encounter Miscellaneous Notes * Telephone Encounter - Halley Huff H - 04/21/2025 9:30 AM CDT Images from the original note were not included. Pulmonary Note: Release of Information Items: Signed Standard Written Order To: Beverly's Method: documented in this encounter Plan of Treatment Upcoming Encounters Date Type Department Care Team (Latest Contact Info) Description 05/04/2025 8:45 AM CDT Clinical Communication Virtual Review in [place], [place] [address] [place] [address] 05/04/2025 2:00 PM CDT Telemedicine Department of Oncology in [place], [place] [address] [phone] Antoine Phillip M.D. 404 [place] [phone] 05/05/2025 3:20 PM CDT Telemedicine Department of Oncology in [place], [place] [address] [place] [phone] Lexi Phillip, LOREN, C.N.P., D.N.P. [address] [place] [address] 05/06/2025 1:10 PM CDT Comprehensive Visit Division of Gastroenterology in [place], [place] [address] [place] [phone] Kati Colin M.D. [address] [place] [phone] 05/12/2025 2:00 PM CDT Comprehensive Visit Center for Sleep Medicine in [place], [place] [address] [place] [phone] Phil Dorman D.O., M.S. [address] [place] [phone] 08/09/2025 1:30 PM BOOK SEWER Office Visit Department of Sleep Medicine in [place], [place] [address] [phone] Sallie White APRN, C.N.P., D.N.P., M.S.N. [address] [phone] Scheduled Procedures Name Priority Associated Diagnoses Date/Ti [...] documented as of this encounter Care Teams Instruments Sales Representative Relationship Specialty Start Date End Date Kati Colin M.D. [address] [place], [place] [address] [place] [phone] PCP - General Family Medicine 03/09/24 documented as of this encounter
--- OUTSIDE RECORDS SUMMARY | 2025-05-03 18:55 | XMS_ITS | Encounter Summary ---
Author Organization [facility] Address [address] [place] [address] Care Team Providers Care Marketing Database Consultant Name Role Phone Kati Colin M.D. Primary Care Provider Reason for Visit * Reason Onset Date Comments Nasal Congestion 04/25/2025 Encounter Details Date Type Department Care Team (Late st Contact Info) Description 04/25/2025 Nurse Triage Department of Family Medicine, [facility], in [address] [phone] Ysabel Coroks RGuilleNGuille Nasal Congestion Social History Tobacco Use Types Packs/Day Years Used Date Smoking Tobacco: Former Cigarettes 0.8 94.4 0 09/29/1969 - 08/23/2018 Smokeless Tobacco: Never Comments:Quit smoking severa l times for several months Alcohol Use Standard Drinks/Week Comments Yes 1 (1 standard drink = 0.6 oz pur e alcohol) [facility] Utilities Answer Date Recorded In the past [...] your living situation today? I have a [facility] place to live 12/26/2024 Comments No Sex and Gender Information Value Date Recorded Sex Assigned at Female 05/07/2024 7:38 AM CDT Legal Sex Female 3:35 PM CAFE OR RESTAURANT MANAGER Gender Identity Female 05/07/2024 7:38 AM CDT Sexual Orientation Straight 05/07/2024 7: 38 AM CDT documented as of this encounter Miscellaneous Notes * Telephone Encounter - Ysabel Crooks R.N. - 04/25/2025 9:58 AM CDT Chief Complaint / Reason for Call Patient is a 69 y.o. female calling regarding Nasal Congestion. Assessment Concern: Luz calls with daughter Deena to request advice for over the counter interventions to help with nasal congestion. Luz reports that she does not always have access to humidified air with her oxygen equipment. She is using 2 liters oxygen at rest and increasing to 4-6 liters during activity. She reports dried crusting in the nose and shortness of breath because she can not use the nostrils to breathe. She has a bloody nasal discharge. Oxygen saturation: 93-95% with oxygen use, pt states this is her baseline. Heart rate: 71-77-85-95. Luz requests advice if neti pot, saline nasal spray, or if there are other over the counter products that may be helpful. Declines appointment, is scheduled to see primary care in 7 days. Has been to ED multiple times, most recently on 04/18/25. Present for: ongoing since d/c from Emergency Department Home cares tried: zyrtec every morning, humidified air when able Calling to request: advice The recommended disposition is See a health care provider within 24 hours. Prefer phone call back. Either Luz or Deena. Patient request regarding OTC medications will be forwarded to the provider and care team for further advice/recommendations. and Encouraged patient to call back with any new, worsening, or persistent symptoms. Reason for Disposition [1] MILD difficulty breathing (e.g., minimal/no SOB at rest, SOB with walking) AND [2] worse than normal Protocols used: COPD Oxygen Monitoring and Uhytegf-Lcznu-GE Care Advice COPD Oxygen Monitoring and Bdsszpg-Wqepw-UV Nurse Ysabel Tobias Apr 25, 2025 10:20 AM Care Advice SEE PCP WITHIN 24 HOURS: CALL BACK IF: * Fever higher than 100.4 F (38.0 C) * You become worse OXYGEN THERAPY - GENERAL TIPS: * Turn off the oxygen when you're not using it. * Keep oxygen away from open flames. This includes candles, fireplaces, and gas stoves. The use of a microwave oven for cooking is fine. * Keep oxygen at least 6 feet (2 meters) away from electrical devices like hair dryers, electric razors, electric blankets, and electric toothbrushes or toys with electric motors. * Be careful of tripping hazard with tubing for yourself and others. * Make sure you have working smoke detectors and fire extinguishers in your home * DO NOT smoke and use oxygen. A fire or explosion can occur. * DO NOT use petroleum-based lotions and creams. An example is Vaseline. These can catch on fire (flammable). If needed, a water-soluble lubricant may be applied (such as K-Y jelly, aloe vera) to theinside of the nose. Patients often have a dry nose if they are on higher doses of oxygen. If this occurs, a water bottle can be attached to the oxygen to help moisten the inside of the nose. * DO NOT use other flammable products like rubbing alcohol and aerosol sprays. OXYGEN THERAPY - INTERNET RESOURCES: * [place] [employer]: The [place] [employer] has helpful videos on oxygen therapy. Website: https://www.lung.org/pglt-uuewic-jignszja/xcrj-tcnodhpfbm-gbh-test/oxygen-therap y. * [place] [employer] - Lung Helpline and Tobacco Quitline: Talk to experts. Service is free.Phone: 3-492-XRHAIJU ( and press 2). Website: https://www.lung.org/help-support/ytkn-koxfdbql-lfk-tobacco-quitline. documented in this encounter Plan of Treatment Upcoming Encounters Date Type Department Care Team (Latest Contact Info) Description 05/04/2025 8:45 AM CDT Clinical Communication Virtual Review in [address] [phone] 05/04/2025 2:00 PM CDT Telemedicine Department of Oncology in [place], [place] [address], [place] [address] Antoine Phillip M.D. [address] [place] [phone] 05/05/2025 3:20 PM CDT Telemedicine Department of Oncology in [place], [place] [address] [place] [phone] Lexi Phillip APRN, C.N.P., D.N.P. [address] [place] [phone] 05/06/2025 1:10 PM CDT Comprehensive Visit Division of Gastroenterology in [place], [place] [address] [place] [address] Kati Colin M.D. [address] [place] [address] 05/12/2025 2:00 PM CDT Comprehensive Visit Center for Sleep Medicine in [place], [place] [address] [place] [address] Phil Dorman D.O., M.S. [address] [place] [address] 08/09/2025 1:30 PM CAFE OR RESTAURANT MANAGER Office Visit Department of Sleep Medicine in [place], [place] [address] [place] [phone] Sallie White APRN, C.N.P., D.N.P., M.S.N. [address] [place] [phone] Scheduled Procedures Name Priority Associated Diagnoses Date/Ti [...] documented as of this encounter Care Teams Marketing Database Consultant Relationship Specialty Start Date End Date Kati Colin M.D. [address] [place] [phone] PCP - General Family Medicine 03/09/24 documented as of this encounter
--- OUTSIDE RECORDS SUMMARY | 2025-05-03 18:55 | XMS_ITS | Encounter Summary ---
Author Organization [facility] Address [address] [place] [address] Care Team Providers Care Optical Advisor Name Role Phone Kati Colin M.D. Primary Care Provider Reason for Referral * Outpatient (Routine) - Closed Specialty Diagnoses / Procedures Referred By Phani t Referred To Contact Diagnoses Edema Elevated D-Dimer Uncertain Significance Procedures US Lower Extremity Veins Bilateral US Lower Extremity Veins Bilateral Margarita Martinez APRN, C.N.P., D.N.P. [address] [place] [address] Phone: tel: fax: [facility] Region Referral ID Status Reason Start Date Expiration Date Visits Re quested Visits Authorized [id number] Closed 04/14/2025 07/15/2026 1 1 Encounter Details Date Type Department Care Team (Late st Contact Info) Description 04/14/2025 Documentation Division of Pulmonary Medicine in [place], [place] [address] [place] [phone] Margarita Martinez APRN, C.N.P., D.N.P. [address] [place] [address] Social History Tobacco Use Types Packs/Day Years Used Date Smoking Tobacco: Former Cigarettes 0.8 94.4 0 09/29/1969 - 08/23/2018 Smokeless Tobacco: Never Comments:Quit smoking severa l times for several months Alcohol Use Standard Drinks/Week Comments Yes 1 (1 standard drink = 0.6 oz pur e alcohol) [facility] Utilities Answer Date Recorded In the past 12 months has e electric, gas, oil, or water [employer] threatened to shut off services in your [...] your living situation today? I have a [facility] place to live 12/26/2024 Comments No Sex and Gender Information Value Date Recorded Sex Assigned at Female 05/07/2024 7:38 AM CDT Legal Sex Female 3:35 PM PRODUCTION TRAINER Gender Identity Female 05/07/2024 7:38 AM CDT Sexual Orientation Straight 05/07/2024 7: 38 AM CDT documented as of this encounter Progress Notes * Margarita Martinez APRN, C.N.Dante., D.N.P. - 04/14/2025 11:02 AM CDT Chart Update Given the patient's lower extremity edema, a D-dimer was ordered following our visit. Her D-dimer is elevated at 1038. I have requested that she undergo a bilateral lower extremity ultrasound to ruleout a DVT today. I have also been in contact with her primary care provider who will help coordinate this. Following discussion with the patient, she does not have transportation that would be able to get her into the clinic today for an ultrasound and has requested to have this done tomorrow. At this time, she reports her symptoms are unchanged from our previous visit. She did have a CTA done on04/11/2025 that did not show an acute PE or chronic PE. I will continue to communicate with the patient and her primary care provider with the results following her lower extremity ultrasound. Margarita Martinez APRN, Kael.N.P., D.N.P. documented in this encounter Plan of Treatment Upcoming Encounters Date Type Department Care Team (Latest Contact Info) Description 05/04/2025 8:45 AM CDT Clinical Communication Virtual Review in [place], [place] [address] [place] [address] 05/04/2025 2:00 PM CDT Telemedicine Department of Oncology in [place], [place] [address] [place] [address] Antoine Phillip M.D. [address] [place] [address] 05/05/2025 3:20 PM CDT Telemedicine Department of Oncology in [place], [place] [address] [place] [address] Lexi Phillip APRN, C.N.P., D.N.P. [address] [place] [address] 05/06/2025 1:10 PM CDT Comprehensive Visit Division of Gastroenterology in [place], [place] [address] [place] [phone] Kati Colin M.D. [address] [place] [phone] 05/12/2025 2:00 PM CDT Comprehensive Visit Center for Sleep Medicine in [place], [place] [address] [place] [phone] Phil Dorman D.O., M.S. [address] [place] [phone] 08/09/2025 1:30 PM PRODUCTION TRAINER Office Visit Department of Sleep Medicine in [place], [place] [address] [phone] Sallie White APRN, C.N.P., D.N.P., M.S.N. [address] [phone] Scheduled Procedures Name Priority Associated Diagnoses Date/Ti me BRONCHOSCOPY FLEXIBLE Chronic Obstructive Pulmonary Disease Without Exacerbation (HCC) Abnormal Computed Tomography Chest Chronic Cough 05/03/2025 12:47 PM CDT documented as of this encounter Results * US Lower Extremity [...] and management can be found on the [employer] site. Link https://[facility].org/topic/clinical-answers/cnt-82836240/cpm-204 93464 Procedure Note Christiano Oneil M.D. - 04/15/2025 [...] management can be found on [employer] site. Linkhttps://askmayoexpert.[facility]/topic/clinical-answers/[email or web address]/cpm -2049 1725 IMPRESSION: 1. Negative for acute DVT. 2. Right 5.1 cm popliteal fossa cyst. Margarita Martinez APRN C.N.P., D.N.P. [facility] HI OCEDURES Final Result documented in this encounter Visit Diagnoses Diagnosis Edema- Primary Elevated D-Dimer Uncertain Significance Edema Elevated D-Dimer Uncertain Significance documented in this encounter Additional Health Concerns Infection Onset Date Last Indicated Resolved Time Protective Environment 02/14/2025 02/14/202504/30 8:54 PM CDT Assessment Noted Time A fall risk assessment has been complete d for the patient 07/05/2024 4:06 PM CDT documented as of this encounter Care Teams Optical Advisor Relationship Specialty Start Date End Date Kati Colin M.D. [address] [place] [phone] PCP - General Family Medicine 03/09/24 documented as of this encounter
--- OUTSIDE RECORDS SUMMARY | 2025-05-03 18:55 | XMS_ITS | Encounter Summary ---
Author Organization [facility] Address [address] [place] [address] Care Team Providers Care Composition Roofer Name Role Phone Kati Colin M.D. Primary Care Provider [phone] Encounter Details Date Type Department Care Team (Late st Contact Info) Description 04/15/2025 Results Follow-Up Division of Pulmonary Medicine in [place], [place] [address] [place] [phone] Margarita Martinez, LOREN, C.N.P., D.N.P. [address] [place] [phone] US Lower Extremity Veins Bilateral Social History Tobacco Use Types Packs/Day Years [...] your living situation today? I have a [facility] place to live 12/26/2024 Comments No Sex and Gender Information Value Date Recorded Sex Assigned at Female 05/07/2024 7:38 AM CDT Legal Sex Female 3:35 PM PRODUCT MARKETING CONSULTANT Gender Identity Female 05/07/2024 7:38 AM CDT Sexual Orientation Straight 05/07/2024 7: 38 AM CDT documented as of this encounter Plan of Treatment Upcoming Encounters Date Type Department Care Team (Latest Contact Info) Description 05/04/2025 8:45 AM CDT Clinical Communication Virtual Review in [place], [place] [address] [place] [address] 05/04/2025 2:00 PM CDT Telemedicine Department of Oncology in [place], [place] [address] [place] [phone] Antoine Phillip M.D. [address] [place] [phone] 05/05/2025 3:20 PM CDT Telemedicine Department of Oncology in [place], [place] [address] [place] [phone] Lexi Phillip APRN C.N.PGuille, D.N.P. [address] [place] [phone] 05/06/2025 1:10 PM CDT Comprehensive Visit Division of Gastroenterology in [place], [place] [address] [place] [address] Kati Colin M.D. [address] [place] [phone] 05/12/2025 2:00 PM CDT Comprehensive Visit Center for Sleep Medicine in [place], [place] [address] [place] [address] Phil Dorman D.O., M.S. [address] [place] [phone] 08/09/2025 1:30 PM PRODUCT MARKETING CONSULTANT Office Visit Department of Sleep Medicine in [place], [place] [address] [place] [phone] Sallie White APRN, C.N.P., D.N.P., M.S.N. [address] [phone] Scheduled Procedures Name Priority Associated Diagnoses Date/Ti [...] documented as of this encounter Care Teams Composition Roofer Relationship Specialty Start Date End Date Kati Colin M.D. [address] [place] [phone] PCP - General Family Medicine 03/09/24 documented as of this encounter
--- OUTSIDE RECORDS SUMMARY | 2025-05-03 18:55 | XMS_ITS | Encounter Summary ---
Author Organization [facility] Address [address] [place] [address] Care Team Providers Care Doughnut Machine Operator Helper Name Role Phone Kati Colin M.D. Primary Care Provider Reason for Visit * Reason Onset Date Comments Telephone call 04/18/2025 Update Encounter Details Date Type Department Care Team (Latest Contact Info) Description 04/18/2025 Clinical Communication Division of Pulmonary Medicine in [place], [place] [address] [place] [phone] Margarita Martinez, LOREN, C.N.P., D.N.P. [address] [place] [phone] Telephone call (Update) Social History Tobacco Use Types Packs/Day Years Used Date Smoking Tobacco: Former Cigarettes 0.8 94.4 0 09/29/1969 - 08/23/2018 Smokeless Tobacco: Never Comments:Quit smoking severa l times for several months Alcohol Use Standard Drinks/Week Comments Yes 1 (1 standard drink = 0.6 oz pur e alcohol) [facility] Utilities Answer Date Recorded In the past 12 months has [employer] electric, gas, oil, or water company threatened [...] your living situation today? 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 Gender Identity Female 05/07/2024 7:38 AM CDT Sexual Orientation Straight 05/07/2024 7: 38 AM CDT documented as of this encounter Miscellaneous Notes * Telephone Encounter - Halley Huff H - 04/18/2025 8:14 AM CDT Caller: Patient Preferred contact: Authorized: Yes Diagnosis: #1 Asthma With Chronic Obstructive Pulmonary Disease (HCC) #2 Chronic Respiratory Failure (HCC) #3 Apnea Sleep Obstructive #5 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 I let her know that I would let you know and that you would probably call her if you have a chance. Action Requested: Additional Notes: I heard the attendant at the ER, so I let her go so she could complete the process. Halley documented in this encounter Plan of Treatment Upcoming Encounters Date Type Department Care Team (Latest Contact Info) Description 05/04/2025 8:45 AM CDT Clinical Communication Virtual Review in [place], [place] [address] [place] [address] 05/04/2025 2:00 PM CDT Telemedicine Department of Oncology in [place], [place] [address], [place] [address] Antoine Phillip M.D. [address] [place] [phone] 05/05/2025 3:20 PM CDT Telemedicine Department of Oncology in [place], [place] [address] [place] [phone] Lexi Phillip, LOREN, C.N.P., D.N.P. [address] [place] [address] 05/06/2025 1:10 PM CDT Comprehensive Visit Division of Gastroenterology in [place], [place] [address] [place] [address] Kati Colin M.D. [address] [place] [phone] 05/12/2025 2:00 PM CDT Comprehensive Visit Center for Sleep Medicine in [place], [place] [address] [place] [address] Phil Dorman D.O., M.S. [address] [place] [address] 08/09/2025 1:30 PM ASSAULT AMPHIBIOUS VEHICLE CREWMAN Office Visit Department of Sleep Medicine in [place], [place] [address] [place] [phone] Sallie White APRN, C.N.P., D.N.P., M.S.N. [address] [place] [phone] Scheduled Procedures Name Priority Associated Diagnoses [...] documented as of this encounter Care Teams Doughnut Machine Operator Helper Relationship Specialty Start Date End Date Kati Colin M.D. [address] [place] [phone] PCP - General Family Medicine 03/09/24 documented as of this encounter
--- OUTSIDE RECORDS SUMMARY | 2025-05-03 18:55 | XMS_ITS | Encounter Summary ---
Author Organization [facility] Address [address] [place] [address] Care Team Providers Care Hydraulic Plumber Helper Name Role Phone Kati Colin M.D. Primary Care Provider [phone] Reason for Visit * Reason Onset Date Comments Appointment 04/11/2025 Encounter Details Date Type Department Care Team (Late st Contact Info) Description 04/11/2025 Nurse Triage Department of Family Medicine, [facility], in [address] [phone] Ivanna Venegas R.N. Appointment Social History Tobacco Use Types Packs/Day Years [...] your living situation today? I have a [facility] place to live 12/26/2024 Comments No Sex and Gender Information Value Date Recorded Sex Assigned at Female 05/07/2024 7:38 AM CDT Legal Sex Female 3:35 PM Gender Identity Female 05/07/2024 7:38 AM CDT Sexual Orientation Straight 05/07/2024 7: 38 AM CDT documented as of this encounter Miscellaneous Notes * Telephone Encounter - Ivanna Venegas R.N. - 04/11/2025 3:41 PM CDT Chief Complaint / Reason for Call Patient is a 69 y.o. female calling regarding Appointment. Assessment Concern: Patient is currently being treated for mild persistent asthma with acute exacerbation. Shewas evaluated today in the emergency department and also on 04/05/25. Daughter states that Luz isjust being discharged from the emergency department right now. Reports symptoms of shortness of breath and chest tightness. Present for: two weeks Home cares tried: ED visits. Daughter states that she is currently being treated with Prednisone and an antibiotic. She was also treated with a steroid and antibiotic two weeks ago. Calling to request: Daughter would like to schedule an ED follow up appointment for Luz The recommended disposition is The following information may be helpful, Other. Caller states that patient already has a scheduled appointment in Pulmonary Medicine and she declines to schedule an EDfollow up appointment at primary care clinic at this time. Encouraged caller to call back with any new, worsening, or persistent symptoms. Reason for Disposition General information question, no triage required and triager able to answer question Protocols used: Information Only Call - No Qbnpjy-Ycmak-SG Care Advice Patient/Caregiver understands and will follow care advice?: Yes, able to teach back Information Only Call - No Muepiu-Ypxrx-BI Nurse Ivanna Tobias Apr 11, 2025 04:02 PM Care Advice HOME CARE - INFORMATION OR ADVICE ONLY CALL. documented in this encounter Plan of Treatment Upcoming Encounters Date Type Department Care Team (Latest Contact Info) Description 05/04/2025 8:45 AM CDT Clinical Communication Virtual Review in [place], [place] [address] [place] [address] 05/04/2025 2:00 PM CDT Telemedicine Department of Oncology in [place], [place] [address] [place] [phone] Antoine Phillip M.D. [address] [place] [phone] 05/05/2025 3:20 PM CDT Telemedicine Department of Oncology in [place], [place] [address] [place] [phone] Lexi Phillip, LOREN, C.N.P., D.N.P. [address] [place] [phone] 05/06/2025 1:10 PM CDT Comprehensive Visit Division of Gastroenterology in [place], [place] [address] [place] [address] Kati Colin M.D. [address] [place] [phone] 05/12/2025 2:00 PM CDT Comprehensive Visit Center for Sleep Medicine in [place], [place] [address] [place] [address] Phil Dorman D.O., M.S. [address] [place] [address] 08/09/2025 1:30 PM Office Visit Department of Sleep Medicine in [place], [place] [address] [place] [phone] Sallie White APRN, C.N.P., D.N.P., M.S.N. [address] [phone] Scheduled Procedures Name Priority Associated Diagnoses Date/Ti [...] documented as of this encounter Care Teams Hydraulic Plumber Helper Relationship Specialty Start Date End Date Kati Colin M.D. [address] [place] [phone] PCP - General Family Medicine 03/09/24 documented as of this encounter
--- OUTSIDE RECORDS SUMMARY | 2025-05-03 18:55 | XMS_ITS | Encounter Summary ---
Author Organization [facility] Address [address] [place] [address] Care Team Providers Care Electro Mechanical Engineer Name Role Phone Kati Colin M.D. Primary Care Provider [phone] Encounter Details Date Type Department Care Team (Late st Contact Info) Description 04/19/2025 Orders Only Department of Medical Genetics in [place], [place] [address] [place] [phone] Liliana Flowers M.S., [facility] [address] [place] [phone] Personal History Of Other Malignant Neoplasm Of Bronchus And Lung (Primary Dx); Malignant Neoplasm Of Rectum (HCC) Social History Tobacco Use Types Packs/Day [...] your living situation today? 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 [address] [place] [phone] 05/05/2025 3:20 PM CDT Telemedicine Department of Oncology in [place], [place] [address] [place] [phone] Lexi Phillip APRN C.N.P., D.N.P. [address] [place] [phone] 05/06/2025 1:10 PM CDT Comprehensive Visit Division of Gastroenterology in [place], [place] [address] [place] [address] Kati Colin M.D. [address] [place] [phone] 05/12/2025 2:00 PM CDT Comprehensive Visit Center for Sleep Medicine in [place], [place] [address] [place] [address] Phil Dorman D.O., M.S. [address] [place] [address] 08/09/2025 1:30 PM CLIENT SERVICE PROFESSIONAL Office Visit Department of Sleep Medicine in [place], [place] [address] [place] [phone] Sallie White APRN, C.N.P., D.N.P., M.S.N. [address] [phone] Scheduled Procedures Name Priority Associated Diagnoses Date/Ti me BRONCHOSCOPY FLEXIBLE Chronic Obstructive Pulmonary Disease Without Exacerbation (HCC) Abnormal Computed Tomography Chest Chronic Cough 05/03/2025 12:47 PM CDT documented as of this encounter Results * [id number] CustomNext-Cancer + RNAinsight - Miscellaneous Test (05/02/2025 7:44 AM CDT) Test Name CustomNext-Canc er + RNAinsight 05/02/2025 7:44 AM CDT FB60 Result Specimen sent out; results to follow DEFAULT 05/02/2025 7:44 AM CDT FB60 Blood (Blood, Venous) 05/02/2025 7:44 AM CDT 05/02/2025 7:44 AM CDT Molina Nolasco M.D. LAB MISC ORDERABLES Final Result [facility] [address] [place] [address], [facility] FB60 [facility] in [place] [address] [place] [address] documented in this encounter Visit Diagnoses Diagnosis Personal History Of Other Malignant Neoplasm Of Bronchus And Lung- Primary Malignant Neoplasm Of Rectum (HCC) documented in this encounter Additional Health Concerns Infection Onset Date Last Indicated Resolved Time Protective Environment 02/14/2025 02/14/202504/30 8:54 PM CDT Assessment Noted Time A fall risk assessment has been complete d for the patient 07/05/2024 4:06 PM CDT documented as of this encounter Care Teams Electro Mechanical Engineer Relationship Specialty Start Date End Date Kati Colin M.D. [address] [place] [address] PCP - General Family Medicine 03/09/24 documented as of this encounter
--- OUTSIDE RECORDS SUMMARY | 2025-05-03 18:55 | XMS_ITS | Encounter Summary ---
Author Organization [facility] Address [address] [place] [address] Care Team Providers Care Fur Dry Cleaner Hand Name Role Phone Kati Colin M.D. Primary Care Provider Reason for Referral * Outpatient (Routine) - Closed Specialty Diagnoses / Procedures Referred By Contac t Referred To Contact Diagnoses Malignant Neoplasm Of Rectum (HCC) Procedures Perform central assembly line driver: Other (specify); access for CT Antoine Phillip M.D. [address] [place] [address] Phone: tel: fax: [facility] Region Referral ID Status Reason Start Date Expiration Date Visits Re quested Visits Authorized [id number] Closed 04/26/2025 07/27/2026 1 1 Encounter Details Date Type Department Care Team (Late st Contact Info) Description 04/26/2025 Orders Only Department of Infusion Therapy in [place], [place] [address], [place] [phone] Jaret Clifford, RGuilleN. [address], [place] [address] Malignant Neoplasm Of Rectum (HCC) (Primary Dx) Social History Tobacco Use Types Packs/Day Years Used Date Smoking Tobacco: Former Cigarettes 0.8 94.4 0 09/29/1969 - 08/23/2018 Smokeless Tobacco: Never Comments:Quit smoking hollisa l times for several months Alcohol Use Standard Drinks/Week Comments Yes 1 (1 standard drink = 0.6 oz pur e alcohol) [facility] Utilities Answer Date Recorded In the past 12 months has e [employer], gas, oil, or water [employer] threatened to shut off services in your [...] AM CDT Legal Sex Female 3:35 PM ANESTHESIOLOGY TEACHER Gender Identity Female 05/07/2024 7:38 AM CDT Sexual Orientation Straight 05/07/2024 7: 38 AM CDT documented as of this encounter Plan of Treatment Upcoming Encounters Date Type Department Care Team (Latest Contact Info) Description 05/04/2025 8:45 AM CDT Clinical Communication Virtual Review in [place], [place] [address] [place] [phone] 05/04/2025 2:00 PM CDT Telemedicine Department of Oncology in [place], [place] [address], [place] [address] Antoine Phillip M.D. [address] [place] [phone] 05/05/2025 3:20 PM CDT Telemedicine Department of Oncology in [place], [place] [address] [place] [phone] Lexi Phillip APRN, C.N.P., D.N.P. 404 [place] [phone] 05/06/2025 1:10 PM CDT Comprehensive Visit Division of Gastroenterology in [place], [place] [address] [place] [phone] Kati Colin M.D. [address] [place] [phone] 05/12/2025 2:00 PM CDT Comprehensive Visit Center for Sleep Medicine in [place], [place] [address] [place] [phone] Phil Dorman D.O., M.S. [address] [place] [phone] 08/09/2025 1:30 PM ANESTHESIOLOGY TEACHER Office Visit Department of Sleep Medicine in [place], [place] [address], [place] [address] Sallie White APRN, C.N.P., D.N.P., M.S.N. [address], [place] [address] Scheduled Orders Name Type Priority Associated Diagnoses Orde r Schedule Perform central assembly line driver: Other (specify); access for CT Procedures Routine Malignant Neoplasm Of Rectum (HCC) Expected: 04/26/2025, Expires: 07/27/2026 Scheduled Procedures Name Priority Associated Diagnoses Date/Ti me BRONCHOSCOPY FLEXIBLE Chronic Obstructive Pulmonary Disease Without Exacerbation (HCC) Abnormal Computed Tomography Chest Chronic Cough 05/03/2025 12:47 PM CDT documented as of this encounter Visit Diagnoses Diagnosis Malignant Neoplasm Of Rectum (HCC)- Primary documented in this encounter Additional Health Concerns Infection Onset Date Last Indicated Resolved Time Protective Environment 02/14/2025 02/14/202504/30 8:54 PM CDT Assessment Noted Time A fall risk assessment has been complete d for the patient 07/05/2024 4:06 PM CDT documented as of this encounter Care Teams Fur Dry Cleaner Hand Relationship Specialty Start Date End Date Kati Colin M.D. [address] [place] [phone] PCP - General Family Medicine 03/09/24 documented as of this encounter
--- OUTSIDE RECORDS SUMMARY | 2025-05-03 18:55 | XMS_ITS | Encounter Summary ---
Author Organization [facility] Address [address] [place] [address] Care Team Providers Care It Trainee Name Role Phone Kati Colin M.D. Primary Care Provider Encounter Details Date Type Department Care Team (Late st Contact Info) Description 03/08/2025 Results Follow-Up Department of Oncology in [place], [place] [address] [place] [address] Lexi Phillip, LOREN, C.N.P., D.N.P. 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 - 03/08/2025 8:50 AM CDT Portal message/letter sent to patient with results. documented in this encounter Plan of Treatment Upcoming Encounters Date Type Department Care Team (Latest Contact Info) Description 05/04/2025 8:45 AM CDT Clinical Communication Virtual Review in [place], [place] [address] [place] [address] 05/04/2025 2:00 PM CDT Telemedicine Department of Oncology in [place], [place] [address] [phone] Antoine Phillip M.D. 404 [place] [phone] 05/05/2025 3:20 PM CDT Telemedicine Department of Oncology in [place], [place] [address] [place] [phone] Lexi Phillip APRN, C.N.P., D.N.P. 404 [place] [phone] 05/06/2025 1:10 PM CDT Comprehensive Visit Division of Gastroenterology in [place], [place] [address] [place] [phone] Kati Colin M.D. [address] [place] [phone] 05/12/2025 2:00 PM CDT Comprehensive Visit Center for Sleep Medicine in [place], [place] [address] [place] [phone] Phil Dorman D.O., M.S. [address] [place] [phone] 08/09/2025 1:30 PM CORRECTIONAL OFFICER SERGEANT Office Visit Department of Sleep Medicine in [place], [place] [address] [place] [phone] Sallie White APRN, C.N.P., D.N.P., M.S.N. [address] [place] [phone] Scheduled Procedures Name Priority Associated Diagnoses Date/Ti [...] documented as of this encounter Care Teams It Trainee Relationship Specialty Start Date End Date Kati Colin M.D. [address] [place] [phone] PCP - General Family Medicine 03/09/24 documented as of this encounter
--- OUTSIDE RECORDS SUMMARY | 2025-05-03 18:55 | XMS_ITS | Encounter Summary ---
Author Organization [facility] Address [address] [place] [address] Care Team Providers Care Granite Polisher Name Role Phone Kati Colin M.D. Primary Care Provider [phone] Reason for Visit * Reason Onset Date Comments Ambry:ASHLYN 04/19/2025 Encounter Details Date Type Department Care Team (Late st Contact Info) Description 04/19/2025 Clinical Communication Department of Medical Genetics in [place], [place] [address] [place] [phone] Liliana Flowers M.SGuille, [facility] [address] [place] [phone] Ambry:ASHLYN Social History Tobacco Use Types Packs/Day Years Used Date Smoking Tobacco: Former Cigarettes 0.8 94.4 0 09/29/1969 - 08/23/2018 Smokeless Tobacco: Never Comments:Quit smoking severa l times for several months Alcohol Use Standard Drinks/Week Comments Yes 1 (1 standard drink = 0.6 oz pur e alcohol) [facility] Utilities Answer Date Recorded In the [...] AM CDT 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 I have messaged Ambry to mail her a kit and have sent a POM telling the pt about the BD and to bring the kit with her. documented in this encounter Plan of Treatment Upcoming Encounters Date Type Department Care Team (Latest Contact Info) Description 05/04/2025 8:45 AM CDT Clinical Communication Virtual Review in [place], [place] [address] [place] [phone] 05/04/2025 2:00 PM CDT Telemedicine Department of Oncology in [place], [place] [address] [phone] Antoine Phillip M.D. [address] [place] [phone] 05/05/2025 3:20 PM CDT Telemedicine Department of Oncology in [place], [place] [address] [place] [phone] Lexi Phillip, LOREN, C.N.P., D.N.P. 404 [place] [phone] 05/06/2025 1:10 PM CDT Comprehensive Visit Division of Gastroenterology in [place], [place] [address] [place] [phone] Kati Colin M.D. [address] [place] [phone] 05/12/2025 2:00 PM CDT Comprehensive Visit Center for Sleep Medicine in [place], [place] [address] [place] [phone] Phil Dorman D.O., M.S. [address] [place] [phone] 08/09/2025 1:30 PM BMX RIDER Office Visit Department of Sleep Medicine in [place], [place] [address] [address] Sallie White APRN, C.N.P., D.N.P., M.S.N. [address] [place] [address] Scheduled Procedures Name Priority Associated [...] documented as of this encounter Care Teams Granite Polisher Relationship Specialty Start Date End Date Kati Colin M.D. [address] [place] [phone] PCP - General Family Medicine 03/09/24 documented as of this encounter
--- OUTSIDE RECORDS SUMMARY | 2025-05-03 18:56 | XMS_ITS | Encounter Summary ---
Author Organization [facility] Address [address] [place] [address] Care Team Providers Care Customer Relationship Specialist Name Role Phone Kati Colin M.D. Primary Care Provider [phone] Encounter Details Date Type Department Care Team (Late st Contact Info) Description 03/29/2025 Documentation Department of Radiation Oncology in [place], [place] [address] [place] [phone] Ange Sawyer M.D. [address] [place] [phone] Social History Tobacco Use Types Packs/Day Years Used Date Smoking Tobacco: Former Cigarettes 0.8 94.4 0 09/29/1969 - 08/23/2018 Smokeless Tobacco: Never Comments:Quit smoking severa l times for several months Alcohol Use Standard Drinks/Week Comments Yes 1 (1 standard drink = 0.6 oz pur e alcohol) [facility] Utilities Answer Date Recorded In [...] living situation today? 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 - 03/29/2025 12:54 PM CDT DIAGNOSIS: Malignant Neoplasm Of Lung Adenocarcinoma Right Attending Physician: Ange Sawyer M.D. Treatment Intent: Curative Concomitant Therapy: Chemotherapy Single Plan Treatment Course: 1xLung Plan ID Fractions Dose / Fraction (cGy) Dose Treated (cGy) Dose Planned (cGy) First Treatment Last Treatment Elapsed Days [id number] [phone] 02/14/2025 03/29/2025 43 Course Summary 02/14/2025 03/29/2025 43 Radiation Modality: Photons CLINICAL SUMMARY Ms. Luz Richardson completed radiation treatment as planned with interruptions due to a pneumonia diagnosis. The course of treatment was tolerated moderately well. The patient experienced toxicitiesof grade 2 fatigue & dyspnea as well as grade 1 chest wall pain, cough, and esophagitis during radiation treatment. TREATMENT RESPONSE: Response to treatment will be determined by post-treatment imaging and/or laboratory work. RECOMMENDED FOLLOW UP: Radiation Oncologist and Primary Medical Oncologist - Dr. Sawyer and Dr. Phillip Signed by: Elizabeth Heart R.N., 03/29/2025 12:55 PM CDT [facility] [address] [place] [phone] Cosigned by Ange Sawyer M.D. at 03/29/2025 4:48 PM CDT documented in this encounter Plan of Treatment Upcoming Encounters Date Type Department Care Team (Latest Contact Info) Description 05/04/2025 8:45 AM CDT Clinical Communication Virtual Review in [place], [place] 200 [place] [address] 05/04/2025 2:00 PM CDT Telemedicine Department of Oncology in [place], [place] [address] [place] [phone] Antoine Phillip M.D. [address] [place] [address] 05/05/2025 3:20 PM CDT Telemedicine Department of Oncology in [place], [place] [address] [place] [phone] Lexi Phillip APRN, Kael.N.P., D.N.P. [address] [place] [phone] 05/06/2025 1:10 PM CDT Comprehensive Visit Division of Gastroenterology in [place], [place] [address] [place] [address] Kati Colin M.D. [address] [place] [phone] 05/12/2025 2:00 PM CDT Comprehensive Visit Center for Sleep Medicine in [place], [place] [address] [place] [address] Phil Dorman D.O., M.S. [address] [place] [phone] 08/09/2025 1:30 PM PERSONNEL ASSOCIATE Office Visit Department of Sleep Medicine in [place], [place] [address] [place] [phone] Sallie White APRN, C.N.P., D.N.P., M.S.N. [address] [phone] Scheduled Procedures Name Priority Associated Diagnoses Date/Ti [...] documented as of this encounter Care Teams Customer Relationship Specialist Relationship Specialty Start Date End Date Kati Colin M.D. [address] [place] [address] [place] Ruelas [phone] PCP - General Family Medicine 03/09/24 documented as of this encounter
--- OUTSIDE RECORDS SUMMARY | 2025-05-03 18:56 | XMS_ITS | Encounter Summary ---
Author Organization [facility] Address [address] [place] [address] Care Team Providers Care Office Messenger Name Role Phone Kati Colin M.D. Primary Care Provider Reason for Visit * Reason Onset Date Comments Fatigue 04/05/2025 Shortness of Breath 04/05/2025 Encounter Details Date Type Department Care Team (Late st Contact Info) Description 04/05/2025 Nurse Triage Department of Family Medicine, [facility], in [place], [place] [address] [place] [phone] Liana Ballesteros, R.N. [address] [place] [phone] Fatigue; Shortness of Breath Social History Tobacco Use Types Packs/Day Years Used Date Smoking Tobacco: Former Cigarettes 0.8 94.4 0 09/29/1969 - 08/23/2018 Smokeless Tobacco: Never Comments:Quit smoking severa l times for several months Alcohol Use Standard Drinks/Week Comments Yes 1 (1 standard drink = 0.6 oz pur e alcohol) [facility] Utilities Answer Date Recorded In [...] your living situation today? 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 - 04/05/2025 12:02 PM CDT Chief Complaint / Reason for Call Patient is a 69 y.o. female calling regarding Fatigue and Shortness of Breath. Assessment Concern: Pt had her final Chemo treatment last week. Pt states that she is very cold and is very fatigued BP this am 127/66. Feet and ankle swelling has increased the last week. Pt is on oxygen and when she gets up and moves around is more SOB than her baseline. Pt also has colitis and is having more soft stools. Present for: 1 week Home cares tried: hydration Calling to request: appt The recommended disposition is See a health care provider within 4 hours. Patient was warm transferred to [facility], Patient Appointment Dairy Processing Equipment Operator at the clinic for further assistance. Reason for Disposition [1] MODERATE weakness (i.e., interferes with work, school, normal activities) AND [2] cause unknown(Exceptions: Weakness from acute minor illness or poor fluid intake; weakness is chronic and not worse.) Protocols used: Weakness (Generalized) and [id number] Care Advice Patient/Caregiver understands and will follow care advice?: Yes, able to teach back Weakness (Generalized) and [id number]-[id number]-KU Nurse Liana Ruby Apr 05, 2025 12:07 PM Care Advice BRING MEDICINES: * Please bring a list of your current medicines when you go to see the doctor. * It is also a good idea to bring the pill bottles too. This will help the doctor to make certain you are taking the right medicines and the right dose. CALL BACK IF: * You become worse documented in this encounter Plan of Treatment Upcoming Encounters Date Type Department Care Team (Latest Contact Info) Description 05/04/2025 8:45 AM CDT Clinical Communication Virtual Review in [place], [place] [address] [place] [address] 05/04/2025 2:00 PM CDT Telemedicine Department of Oncology in [place], [place] [address] [address] Antoine Phillip M.D. [address] [place] [phone] 05/05/2025 3:20 PM CDT Telemedicine Department of Oncology in [place], [place] [address] [place] [phone] Lexi Phillip APRN, C.N.P., D.N.P. [address] [place] [phone] 05/06/2025 1:10 PM CDT Comprehensive Visit Division of Gastroenterology in [place], [place] [address] [place] [address] Kati Colin M.D. [address] [place] [phone] 05/12/2025 2:00 PM CDT Comprehensive Visit Center for Sleep Medicine in [place], [place] [address] [place] [address] Phil Dorman D.O., M.S. [address] [place] [address] 08/09/2025 1:30 PM BLEACH MACHINE OPERATOR Office Visit Department of Sleep Medicine in [place], [place] [address] [address] Sallie White APRN, C.N.P., D.N.P., M.S.N. [address] [place] [phone] Scheduled Procedures Name Priority Associated Diagnoses Date/Ti [...] documented as of this encounter Care Teams Office Messenger Relationship Specialty Start Date End Date Kati Colin M.D. [address] [place] [address] [place] [phone] PCP - General Family Medicine 03/09/24 documented as of this encounter
--- OUTSIDE RECORDS SUMMARY | 2025-05-03 18:56 | XMS_ITS | Encounter Summary ---
Author Organization [facility] Address [address] [place] [address] Care Team Providers Care Weatherization Specialist Name Role Phone Kati Colin M.D. Primary Care Provider [phone] Encounter Details Date Type Department Care Team (Late st Contact Info) Description 03/24/2025 Clinical Communication Department of Radiation Oncology in [place], [place] [address] [place] [address] Ange Sawyer M.D. 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 She would like this prescription to be ordered if appropriate. documented in this encounter Plan of Treatment Upcoming Encounters Date Type Department Care Team (Latest Contact Info) Description 05/04/2025 8:45 AM CDT Clinical Communication Virtual Review in [place], [place] [address] [place] [phone] 05/04/2025 2:00 PM CDT Telemedicine Department of Oncology in [place], [place] [address] [phone] Antoine Phillip M.D. [address] [place] [phone] 05/05/2025 3:20 PM CDT Telemedicine Department of Oncology in [place], [place] [address] [place] [phone] Lexi Phillip APRN, C.N.P., D.N.P. [address] [place] [phone] 05/06/2025 1:10 PM CDT Comprehensive Visit Division of Gastroenterology in [place], [place] [address] [place] [phone] Kati Colin M.D. [address] [place] [phone] 05/12/2025 2:00 PM CDT Comprehensive Visit Center for Sleep Medicine in [place], [place] [address] [place] [phone] Phil Dorman D.O., M.S. [address] [place] [phone] 08/09/2025 1:30 PM BOILERMAKER Office Visit Department of Sleep Medicine in [place], [place] [address] [phone] Sallie White APRN, C.N.P., D.N.P., M.S.N. 0 [place] [phone] Scheduled Procedures Name Priority Associated Diagnoses Date/Ti [...] documented as of this encounter Care Teams Weatherization Specialist Relationship Specialty Start Date End Date Kati Colin M.D. [address] [place] [phone] PCP - General Family Medicine 03/09/24 documented as of this encounter
--- OUTSIDE RECORDS SUMMARY | 2025-05-03 18:57 | XMS_ITS | Patient Health Record ---
Author Organization [facility] Address [address] [place], [place] [id number] Care Team Providers Care Marketing And Outreach Coordinator Name Role Phone FRANKLYN CHARLES Primary Care Provider Allergies Allergen (clinical drug ingredient) Drug/Non Drug Allergy documented on EMR Reaction Allergy Type Onset Date Status Vicodin rash Drug Allergy Active Reason For Referral No Information Medications Medication SIG (Take, Route, Frequency, Duration) Notes Start Date End Date Status Farxiga 5 MG 1 tablet Orally Once a day; Duration: 90 days 11/01/2022 Active Valsartan 160 MG Oral; Duration: 30 Active Spiriva Respimat 2.5 MCG/ACT 2 puffs Inhalation Once a day Active ProAir HFA 108 (90 Base) MCG/ACT 2 puffs as needed Inhalation every 4 hrs Active Rosuvastatin Calcium 40 MG 1 tablet Oral ly Once a day Active Triamcinolone Acetonide 0.1 % apply a small amount to affected area on damp skin Externally Twice a day; Duration: 30 days 02/21/2022 Active Cetirizine HCl 10 MG 1 tablet Orally Onc e a day; Duration: 90 days Active Furosemide 20 MG 1 tablet Orally Once a day Active Farxiga 5 MG Oral; Duration: 30 Active Acetaminophen-Codeine #3 300-30 MG 1 tablet as needed Orally every 6 hrs as needed; Duration: 10 days 06/24/2022 Active Aspirin Adult Low Dose 81 MG 1 tablet Orally Once a day Active predniSONE 10 MG Oral; Duration: 20 Active Potassium Chloride ER 10 MEQ 1 tablet with food Orally Once a day Active Cefuroxime Axetil 500 MG Oral; Duration: 14 Active Singulair 4 MG 1 tablet Orally Once a day Active Voltaren 1 % apply 2 g to affecte d area as needed Transdermal 4 times daily 01/10/2020 Not-Taking Cyclobenzaprine HCl 10 MG 1 tablet as ne eded Orally QHS; Duration: 14 days 07/28/2019 Active amLODIPine Besylate 5 MG 1 tablet Orally Once a day Active Advair Diskus 500-50 MCG/DOSE Inhalation; Duration: 30 Active metFORMIN HCl 1000 MG TAKE 1 TABLET TWIC E DAILY; Duration: 90 days Active Social History Tobacco Use: Social History Observation Description Date Details (start date - stop date) Former Smoker NA - NA Tobacco Use/Smoking Question Answer Notes Are you a former smoker How long has it been since y ou last smoked? 1-5 years Additional Findings: Tobacco User Heavy cigarett e smoker (20-39 cigs/day) Alcohol Screen (Audit-C) Question Answer Notes Did you have a drink contain ing alcohol in the past year? Yes How often did you have a dri nk containing alcohol in the past year? 2 to 4 times a month (2 points) How many drinks did you have on a typical day when you were drinking in the past year? 1 or 2 drinks (0 point) How often did you have 6 or more drinks on one occasion in the past year? Never (0 point) Points 2 Interpretation Negative Section Notes: smoked for more than 40 years tried quitting multiple times, is now on Chantix which has been helping to decrease amount of cigarettes smoked smoked for more than 40 years quit smoking since July 2018 smoked for more than 40 years quit smoking since July 2018 smoked for more than 40 years quit smoking since July 2018 smoked for more than 40 years quit smoking since July 2018 smoked for more than 40 years quit smoking since July 2018 smoked for more than 40 years quit smoking since July 2018 smoked for more than 40 years quit smoking since July 2018 smoked for more than 40 years quit smoking since July 2018 smoked for more than 40 years quit smoking since July 2018 smoked for more than 40 years quit smoking since July 2018 smoked for more than 40 years tried quitting multiple times but has been unsuccessful smoked for more than 40 years quit smoking since July 2018 smoked for more than 40 years quit smoking since July 2018 smoked for more than 40 years tried quitting multiple times, is now on Chantix which has been helping to decrease amount of cigarettes smoked smoked for more than 40 years tried quitting multiple times, is now on Chantix which has been helping to decrease amount of cigarettes smoked smoked for more than 40 years tried quitting multiple times, is now on Chantix which has been helping to decrease amount of cigarettes smoked smoked for more than 40 years tried quitting multiple times, is now on Chantix which has been helping to decrease amount of cigarettes smoked smoked for more than 40 years tried quitting multiple times, is now on Chantix which has been helping to decrease amount of cigarettes smoked smoked for more than 40 years tried quitting multiple times, is now on Chantix which has been helping to decrease amount of cigarettes smoked smoked for more than 40 years tried quitting multiple times, is now on Chantix which has been helping to decrease amount of cigarettes smoked smoked for more than 40 years tried quitting multiple times, is now on Chantix which has been helping to decrease amount of cigarettes smoked smoked for more than 40 years quit smoking since July 2018 smoked for more than 40 years quit smoking since July 2018 smoked for more than 40 years quit smoking since July 2018 smoked for more than 40 years quit smoking since July 2018 smoked for more than 40 years quit smoking since July 2018 smoked for more than 40 years quit smoking since July 2018 smoked for more than 40 years quit smoking since July 2018 smoked for more than 40 years quit smoking since July 2018 smoked for more than 40 years quit smoking since July 2018 smoked for more than 40 years quit smoking since July 2018 smoked for more than 40 years quit smoking since July 2018 smoked for more than 40 years quit smoking since July 2018 smoked for more than 40 years quit smoking since July 2018 smoked for more than 40 years quit smoking since July 2018 smoked for more than 40 years quit smoking since July 2018 smoked for more than 40 years tried quitting multiple times, is now on Chantix which has been helping to decrease amount of cigarettes smoked Problems Problem Type SNOMED Code ICD Code Onset Dates Problem Status W/U Status Risk Notes Problem Diabetic renal disease (284902437) Type 2 diabetes mellitus with diabetic chronic kidney disease (E11.22) Active confirmed Problem Dermopathy due to type 2 diabetes mellitus (disorder) (7332484674795) Type 2 diabetes mellitus with other skin complications (E11.628) Active confirmed Problem Chronic pain (42877880) Other chronic pain (G89.29) Active confirmed Problem Pulmonary fibrosis (74648023) Pulmonary fibrosis, unspecified (J84.10) Active confirmed Problem Chronic kidney disease stage 2 (096221823) Chronic kidney disease, stage 2 (mild) (N18.2) Active confirmed Problem Hypertension (96249750) Hypertension (I10) Active confirmed Problem Seasonal allergy (024681720) Seasonal allergies (J30.2) Active confirmed Problem Hyperlipidemia (89019034) Hyperlipidemia (E78.5) Active confirmed Problem Hypertriglyceridemia (024176561) Hypertriglyceridemia (E78.1) Active confirmed Problem Type II diabetes mellitus well controlled (283710159) Diabetes type 2, controlled (E11.9) Active confirmed Problem Pulmonary nodule (148620365) Pulmonary nodule (R91.1) Active confirmed Problem Neuropathy (809556123) Neuropathy (G62.9) Active confirmed Problem History of malignant basal cell tumor of skin (869789186) History of basal cell cancer (Z85.828) Active confirmed Problem Lipoprotein deficiency disorder (869627296) Low HDL (under 40) (E78.6) Active confirmed Problem Atherosclerotic hear t disease of standing [place] coronary artery without angina pectoris (167967651698389) Coronary artery calcification seen on CAT scan (I25.10) Active confirmed Problem Smoker (87163491) Smoker (F17.200) Active confi rmed Problem Current smoker (66871975) Current smoker (F17.200) Active confirmed Problem Restless legs (94976979) RLS (restless legs syndrome) (G25.81) Active confirmed Problem Migraine (26285900) Migraine wit hout status migrainosus, not intractable, unspecified migraine type (G43.909) Active confirmed Problem Iron deficiency anemia (35535344) Iron deficiency anemia, unspecified iron deficiency anemia type (D50.9) Active confirmed Problem Hyperlipidaemia (01317423) Hyperlipidemia, unspecified hyperlipidemia type (E78.5) Active confirmed Problem Leukocytosis (718148910) Leukocytosis, unspecified type (D72.829) Active confirmed Problem Pulmonary emphysema (42261725) Pulmonary emphysema, unspecified emphysema type (J43.9) Active confirmed Problem Stenosis of right carotid artery (577523260768824) Stenosis of right carotid artery (I65.21) Active confirmed Problem Cardiomyopathy (51206408) Cardiomyopathy, unspecified type (I42.9) Active confirmed Problem COPD - Chronic obstructive pulmonary disease (60288735) Chronic obstructive pulmonary disease, unspecified COPD type (J44.9) Active confirmed Problem Gastroesophageal reflux disease with esophagitis (615484248) Gastroesophageal reflux disease with esophagitis (K21.0) Active confirmed Problem Osteoarthritis (340081073) Osteoarthritis, unspecified osteoarthritis type, unspecified site (M19.90) Active confirmed Problem Acute exacerbation o f chronic obstructive airways disease (259045928) COPD with acute exacerbation (J44.1) Active confirmed Problem Polyneuropathy due t o type 2 diabetes mellitus (566451161) Diabetic polyneuropathy associated with type 2 diabetes mellitus (E11.42) Active confirmed Problem Hyperglycemia due to type 2 diabetes mellitus (184655803164215) Type 2 diabetes mellitus with hyperglycemia, without long-term current use of insulin (E11.65) Active confirmed Problem Type 2 diabetes mellitus with other specified complication, without long-term current use of insulin (E11.69) Active confirmed Problem Diabetic cataract associated with type II diabetes mellitus (301806278) Type 2 diabetes mellitus with diabetic cataract, without long-term current use of insulin (E11.36) Active confirmed Problem Osteoarthritis of knee (955878003) Primary osteoarthritis of both knees (M17.0) Active confirmed Problem Chronic kidney disease stage 2 (198138255) Stage 2 chronic kidney disease (N18.2) Active confirmed Problem History of infectiou s disease (879819503) History of coccidioidomycosis (Z86.19) Active confirmed Problem Type 2 diabetes mellitus with peripheral angiopathy (549652615) Type 2 diabetes mellitus with diabetic peripheral angiopathy without gangrene, unspecified whether fdc insulin use (E11.51) Active confirmed Problem Atherosclerosis of [place] artery of extremity, unspecified extremity, with unspecified presence of clinical manifestation (I70.209) Active confirmed Problem Home oxygen therapy (850596209) On home oxygen therapy (Z99.81) Active confirmed Problem Hyperglycemia due to type 2 diabetes mellitus (784375676250301) Uncontrolled type 2 diabetes mellitus with hyperglycemia (E11.65) Active confirmed Problem History of smoki ng greater than 50 pack years (Z87.891) Active confirmed Problem History of malignant neoplasm of rectum (344779391) History of rectal cancer (Z85.048) Active confirmed Problem Arthritis of knee (663001701) Arthritis of knee (M17.10) Active confirmed Problem Localized, primary osteoarthritis of the shoulder region (225215685) DJD of AC (acromioclavicular) joint (M19.019) Active confirmed Problem Nonexudative age-related macular degeneration (647921181) 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 (H35.3134) Active confirmed Encounters Encounter Location Date Provider Diagnosis [facility] [address] [place], [place] [phone] 10/08/2024 FRANKLYN SALGADOLIVAN Diabetes type 2, controlled E11.9 Assessments Encounter Date Diagnosis (ICD Code) Assessment Notes Treatment Notes Treatment Clinical Notes Section Notes 10/08/2024 Diabetes type 2, controlled (ICD-10 - E11.9) Plan Of Treatment Pending Test Test Name Order Date Comprehensive Metabolic Panel 05/28/2019 Comprehensive Metabolic Panel 11/10/2018 24 Hour Creatinine Clearance and Protein Urine 10/18/2021 Lipid Panel 05/28/2019 Iron w/TIBC and %Saturation; Transferrin , Ferritin 09/04/2018 CBC w/ Differential, w/ Platelet 019 CBC w/ Differential, w/ Platelet 019 CBC w/ Differential, w/ Platelet 018 CBC w/ Differential, w/ Platelet 019 Urinalysis Complete 11/10/2018 Urinalysis Complete 05/28/2019 C.Diff,Giardia Ag,O/P,Stool Culture 02/2022 Folate 09/04/2018 TSH with Reflex Free T4 05/28/2019 TSH with Reflex Free T4 11/10/2018 Vitamin B12 09/04/2018 Hemoglobin A1c With eAG 05/28/2019 Hemoglobin A1c With eAG 11/10/2018 Stool FIT, Diagnostic 06/04/2022 RIBS LT NO CHEST 11/22/2019 Hemoglobin A1c 07/13/2018 Hemoglobin A1c 09/04/2018 Hemoglobin A1c 08/03/2018 Urinalysis, Complete 09/04/2018 Urinalysis, Complete 06/29/2018 CBC With Differential/Platelet 8 CBC With Differential/Platelet 8 CBC With Differential/Platelet 8 Microalbumin, Random Urine 08/03/2018 Microalbumin, Random Urine 09/04/2018 Stool FIT, Fecal, IA 06/29/2018 Lipid Panel 06/29/2018 Lipid Panel 09/04/2018 Lipid Panel 08/03/2018 Comp. Metabolic Panel (14) 09/04/2018 Comp. Metabolic Panel (14) 08/03/2018 Comp. Metabolic Panel (14) 06/29/2018 TSH Rfx on Abnormal to Free T4 8 Future Test Test Name Order Date CBC w/ Differential, w/ Platelet 023 Comprehensive Metabolic Panel 01/23/2023 Lipid Panel 01/23/2023 Microalbumin, Urine, Random, Normalized 01/23/2023 CBC w/ Differential, w/ Platelet 023 Urinalysis Complete 01/23/2023 TSH with Reflex Free T4 01/23/2023 Hemoglobin A1c With eAG 01/23/2023 Insurance Providers Payer Name Payer Address Payer Phone Subscriber Number Group Number Insured Name Patient Relationship to Insured Coverage Start Date Coverage End Date Medicare [address] [place] [address] [phone] [id number] Luz Richardson Self - patient is the insured [employer] [address] [address] [place] [phone] [id number] Luz Richardson Self - patient is the insured Medical (General) History Medical History History ICD Code Hypertension Diabetes type 2, controlled Hyperlipidemia On home oxygen therapy History of smoking greater than 50 pack years History of coccidioidomycosis Migraine without status migr ainosus, not intractable, unspecified migraine type Chronic obstructive pulmonary disease, u nspecified COPD type Pulmonary emphysema, unspecified emphyse ma type Other chronic pain History of rectal cancer History of basal cell cancer Stenosis of right carotid artery Surgical History Surgery Date(Month/Year) cartilage implant in right knee 2003 spinal fusion 2006 rectal tumor removal 12/2008 POF repair 2009 lung resection 10/2012 left femur fracture surgery 2020 Hospitalization History Reason Date(Month/Year) femur fracture s/p fall 10/2020
--- OUTSIDE RECORDS SUMMARY | 2025-05-03 18:57 | XMS_ITS | Encounter Summary ---
Author Organization [facility] Address [address] [place] [address] Care Team Providers Care Tobacco Drying Machine Operator Name Role Phone Kati Colin M.D. Primary Care Provider Encounter Details Date Type Department Care Team (Late st Contact Info) Description 03/18/2025 Clinical Communication Department of Infusion Therapy in [place], [place] [address], [place] [address] Jannette Samson, RGuilleNGuille Social History Tobacco Use Types Packs/Day Years Used Date Smoking Tobacco: Former Cigarettes 0.8 94.4 0 09/29/1969 - 08/23/2018 Smokeless Tobacco: Never Comments:Quit smoking severa l times for several months Alcohol Use Standard Drinks/Week Comments Yes 1 (1 standard drink = 0.6 oz pur e alcohol) [facility] Utilities Answer Date Recorded In the past 12 months has e [employer], gas, oil, or water company threatened to [...] AM CDT Legal 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 [address] [place] [address] 05/05/2025 3:20 PM CDT Telemedicine Department of Oncology in [place], [place] [address] [place] [phone] Lexi Phillip APRN, C.N.P., D.N.P. [address] [place] [phone] 05/06/2025 1:10 PM CDT Comprehensive Visit Division of Gastroenterology in [place], [place] [address] [place] [address] Kati Colin M.D. [address] [place] [phone] 05/12/2025 2:00 PM CDT Comprehensive Visit Center for Sleep Medicine in [place], [place] [address] [place] [address] Phil Dorman D.O., M.S. [address] [place] [phone] 08/09/2025 1:30 PM COMMERCIAL INSTRUCTOR SUPERVISOR Office Visit Department of Sleep Medicine in [place], [place] [address] [place] [phone] Sallie White APRN, C.N.P., D.N.P., M.S.N. [address], [place] [phone] Scheduled Procedures Name Priority Associated Diagnoses Date/Ti [...] documented as of this encounter Care Teams Tobacco Drying Machine Operator Relationship Specialty Start Date End Date Kati Colin M.D. [address] [place] [phone] PCP - General Family Medicine 03/09/24 documented as of this encounter
== END 2025-05-03 18:56 | disposition home or self-care (01) ==
LOC: ED 18:48
PROVIDERS: Emergency Provider Student in an Organized Health Care Education/Training Program; PCP Family Medicine
DX: Z45.2 Encounter for adjustment and management of vascular access device (principal)
CPT/HCPCS: 99281; 99282; J1642